=== PATIENT | female | born 1960 | race African-American/Black ===

== ENCOUNTER 2017-11-20 22:25 | Inpatient (IN) | payer OTHER ==
--- OUTSIDE RECORDS SUMMARY | 2017-11-20 22:28 | XMS REPORT | Clinical Summary ---
:1960 Author Organization [facility] Address [address] [place] [address] Phone Care Team Providers Name Role Phone Unavailable Primary Care Provider Unavailable Allergies No Known Allergies Current Medications Prescription Sig. Disp. Refills Start Date End Date Status hydrOXYzine Take 50 mg by mouth Active (VISTARIL) 50 MG 3 (three) times capsule daily as needed for Anxiety. ARIPiprazole Take 15 mg by mouth Active (ABILIFY) 10 MG daily . tablet omeprazole Take 20 mg by mouth Active (PRILOSEC) 20 MG daily. capsule sertraline (ZOLOFT) Take 50 mg by mouth Active 50 MG tablet daily. senna-docusate Take 1 tablet by 30 tablet 0 02/01/2016 Active (SENOKOT S) 8.6-50 mouth nightly. mg per tablet ertapenem (INVanz) Inject 0.5 g 0 02/05/2016 Active IVPB intravenously daily. acetaminophen Take 650 mg by Active (TYLENOL) 325 MG mouth every 4 tablet (four) hours as needed for Pain. LORazepam (ATIVAN) Take 1 mg by mouth Active 1 MG tablet every 6 (six) hours as needed for Anxiety. cloNIDine HCl Take 0.1 mg by Active (CATAPRES) 0.1 MG mouth every 8 tablet (eight) hours as needed (bp>180/105). acetaminophen-codei Take 1 tablet by Active ne (TYLENOL #3) mouth every 4 300-30 mg per (four) hours as tablet needed for Pain. furosemide (LASIX) Take 1 tablet (40 30 tablet 0 02/01/2016 01/31/2017 40 MG tablet mg total) by mouth daily. carvedilol (COREG) Take 1 tablet (6.25 60 tablet 0 02/01/2016 01/31/2017 6.25 MG tablet mg total) by mouth 2 (two) times daily. sevelamer (RENVELA) Take 1 tablet (800 90 tablet 0 02/01/2016 01/31/2017 800 mg tablet mg total) by mouth 3 (three) times daily with meals. Active Problems Problem Noted Date Atrial myxoma 02/06/2016 ESRD on dialysis (HCC) 02/06/2016 Hyponatremia 02/06/2016 Metabolic bone disease 02/06/2016 Hypertension 02/06/2016 Catheter-related bloodstream infection (CRBSI) 02/06/2016 Infective endocarditis 02/06/2016 Anemia of chronic disease 02/06/2016 Depression 02/06/2016 Bacteremia 01/16/2016 Family History Medical History Relation Name Comments Heart disease Mother Relation Name Status Comments Mother Social History Tobacco Use Types Packs/Day Years Used Date Former Smoker 1 20 Quit: 11/25/2015 Smokeless Tobacco: Former User Tobacco Cessation: Ready to Quit: Yes Alcohol Use Drinks/Week oz/Week Comments No Sex Assigned at Date Recorded Not on file Last Filed Vital Signs Not on file Plan of Treatment Health Maintenance Due Date Last Done Comments INFLUENZA VACCINE 04/02/2018 Implants Implanted Type Area Production Statistical Clerk Device Expiration Model / Identifier Date Serial / Lot Grft Hemshld Dbl Jarrod 2.0x6.0in [id number] - [id number] Graft/Pat GETINGE 01/30/2019 [id number] / Implanted: Qty: 1 on 01/25/2016 by Sherif Bañuelos MD IND: [id number]:CV / [id number] Results Not on fileafter 11/19/2016
[2017-11-20 23:21] LABS: Absolute Lymphocytes (CBC) 1.8 K/uL (0.7-4.9); Absolute Monocytes 0.9 K/uL (0.1-1.3); Absolute Neutrophil 4.6 K/uL (1.8-8.0); Basophils % 1.4 % (0-1.3); Eosinophils % 0.8 % (0-4.4); Hematocrit 37.4 % (36.0-45.0); Lymphocytes % 23.8 % (15.3-44.8); MCH 27.8 pg (27.0-35.0); MCV 86.7 fL (80-100); MPV 8.9 fL (7.6-11.3); Monocytes % 11.7 % (3.3-12.3); RBC Red Blood Cell Count 4.32 M/uL (3.86-4.86)
[2017-11-20 23:24] LABS: Protime INR 1.16
[2017-11-20 23:35] LABS: Bilirubin Direct 0.1 mg/dL (0-0.2); Bilirubin Total 0.5 mg/dL (0.3-1.2); Magnesium 2.2 mg/dL (1.8-2.5); Protein, Total 8.3 g/dL (6.0-8.3)
[2017-11-20 23:39] LABS: CKMB Creatine Kinase MB 2.5 ng/ml (0.3-4.0)
[2017-11-20 23:58] LABS: Potassium 5.5 mEq/L (3.6-5.0)
--- NOTE | 2017-11-21 00:17 | EDPHYS ---
Physician Documentation [facility] Name: Michelle Ochoa Age: 57 yrs Sex: Female : 1960 Arrival Date: 11/20/2017 Time: 22:28 Bed 5 Private MD: ED Physician Abhishek Decker HPI: 11/21 00:23 This 57 yrs old Black Female presents to ER via Ambulatory with complaints of Shortness tw4 Of Breath. 00:23 The patient has shortness of breath at rest. Onset: The symptoms/episode began/occurred tw4 1 week(s) ago. Duration: The symptoms are continuous, and are steadily getting worse. The patient's shortness of breath is aggravated by exertion, is alleviated by rest. Associated signs and symptoms: The patient has no apparent associated signs or symptoms. Severity of symptoms: At their worst the symptoms were moderate in the emergency department the symptoms are unchanged. The patient has not recently seen a physician, missed last three dialysis sessions. Historical: - Allergies: 11/20 22:55 No Known Allergies; lp1 - Home Meds: 22:55 Unable to obtain [Active]; lp1 - PMHx: 22:55 Hypertension; Renal Disease; Dialysis- T//Mon; lp1 - PSHx: 22:55 ; Cholecystectomy; YOLANDA fistula; lp1 - Immunization history:: Adult Immunizations up to date. - Social history:: Smoking status: Patient uses tobacco products, smokes one-half pack cigarettes per day. ROS: 11/21 00:23 Eyes: Negative for injury, pain, redness, and discharge, Cardiovascular: Negative for tw4 chest pain, palpitations, and edema, Abdomen/GI: Negative for abdominal pain, nausea, vomiting, diarrhea, and constipation, Back: Negative for injury and pain, MS/Extremity: Negative for injury and deformity, Neuro: Negative for headache, weakness, numbness, tingling, and seizure. Respiratory: Positive for dyspnea on exertion, shortness of breath, Negative for cough, hemoptysis, orthopnea, pleurisy. Exam: 00:23 Constitutional: This is a well developed, well nourished patient who is awake, alert, tw4 and in no acute distress. Head/Face: Normocephalic, atraumatic. Chest/axilla: Normal chest wall appearance and motion. Nontender with no deformity. No lesions are appreciated. Cardiovascular: Regular rate and rhythm with a normal S1 and S2. No gallops, murmurs, or rubs. Normal PMI, no JVD. No pulse deficits. Respiratory: Lungs have equal breath sounds bilaterally, clear to auscultation and percussion. No rales, rhonchi or wheezes noted. No increased work of breathing, no retractions or nasal flaring. Abdomen/GI: Soft, non-tender, with normal bowel sounds. No distension or tympany. No guarding or rebound. No evidence of tenderness throughout. Skin: Warm, dry with normal turgor. Normal color with no rashes, no lesions, and no evidence of cellulitis. Neuro: Awake and alert, GCS 15, oriented to person, place, time, and situation. Cranial nerves II-XII grossly intact. Motor strength 5/5 in all extremities. Sensory grossly intact. Cerebellar exam normal. Normal gait. 00:23 Musculoskeletal/extremity: Extremities: all appear grossly normal, with no appreciated pain with palpation, ROM: no acute changes, Circulation is intact in all extremities. AV fistula left upper arm +thrill +bruit. Vital Signs: 11/20 22:53 BP 233 / 92; Pulse 85; Resp 18; Temp 97.8(O); Pulse Ox 94% on R/A; Weight 76.2 kg; lp1 Height 5 ft. 0 in. (152.40 cm); Pain 0/10; 23:13 BP 232 / 94; Pulse 68; Resp 19; Pulse Ox 100% on R/A; lp1 23:30 BP 236 / 89; Pulse 70; Resp 19; Pulse Ox 100% on R/A; lp1 11/21 00:20 BP 232 / 104; Pulse 77; Resp 21; Pulse Ox 100% on R/A; lp1 00:40 BP 214 / 106; Pulse 76; Resp 24; Pulse Ox 96% on R/A; lp1 01:20 BP 229 / 106; Pulse 71; Resp 24; Pulse Ox 98% on R/A; lp1 01:40 BP 245 / 108; Pulse 71; Resp 24; Pulse Ox 98% on R/A; lp1 01:50 BP 237 / 86; Pulse 80; Resp 21; Pulse Ox 98% on R/A; lp1 02:05 BP 228 / 85; Pulse 80; Resp 24; Pulse Ox 98% on R/A; lp1 02:15 BP 201 / 85; Pulse 84; Resp 19; Temp 97.4(O); Pulse Ox 100% on R/A; lp1 11/20 22:53 Body Mass Index 32.81 (76.20 kg, 152.40 cm) lp1 MDM: 11/20 22:49 Patient medically screened. 11/21 00:15 Differential diagnosis: CHF exacerbation, Chronic Obstructive Pulmonary Disease tw4 Myocardial Infarction pneumonia, pulmonary edema, Pulmonary Embolism reactive airway disease. Data reviewed: vital signs, nurses notes. 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 Test interpretation: by ED physician or midlevel provider: ECG. Counseling: I had a detailed discussion with the patient and/or guardian regarding: the historical points, exam findings, and any diagnostic results supporting the discharge/admit diagnosis, the presence of at least one elevated blood pressure reading (>120/80) during this emergency department visit, lab results, radiology results. Physician consultation: Roxanna Felipe MD was contacted at 00:15, regarding admission, to the telemetry unit. need to evaluate the patient as soon as possible, and will see patient in inpatient room. Admission orders: after a detailed discussion of the patient's condition and case, the admit orders are written by me. ED course: Pt states she feels well. Received IVF insulin and D50 for treatment of hyperkalemia. 11/20 22:51 Order name: Basic Metabolic Panel; Complete Time: 00:10 11/21 00:11 Interpretation: Normal except: K 5.5; CO2 16; BUN 84; CRE 10.70; GFR 4. 11/20 22:51 Order name: BNP; Complete Time: 00:10 11/20 22:51 Order name: CBC with Diff; Complete Time: 00:10 11/20 22:51 Order name: Ckmb; Complete Time: 00:10 11/20 22:51 Order name: CPK; Complete Time: 00:10 11/20 22:51 Order name: LFT's; Complete Time: 00:10 11/20 22:51 Order name: Magnesium; Complete Time: 00:10 11/20 22:51 Order name: PT-INR; Complete Time: 00:[address] [facility] 11/20 22:51 Order name: Ptt, Activated; Complete Time: 00:[address] [facility] 11/21 00:11 Interpretation: Within normal limits: PTT 35.1. [facility] 11/20 22:51 Order name: Troponin (emerg Dept Use Only); Complete Time: 00:[address] [facility] 11/20 22:51 Order name: XRAY Chest (1 view) [facility] 11/21 00:00 Order name: Urine Dipstick--Ancillary (enter results) cc 11/20 22:51 Order name: EKG; Complete Time: 22:[address] [facility] 11/20 22:51 Order name: Cardiac monitoring; Complete Time: 23:[address] [facility] 11/20 22:51 Order name: EKG - Nurse/Tech; Complete Time: 23:[address] [facility] 11/20 22:51 Order name: IV Saline Lock; Complete Time: 23:[address] [facility] 11/20 22:51 Order name: Labs collected and sent; Complete Time: 23:[address] [facility] 11/20 22:51 Order name: O2 Per Protocol; Complete Time: 23:[address] [facility] 11/20 22:51 Order name: O2 Sat Monitoring; Complete Time: 23:[address] [facility] 11/20 22:51 Order name: Urine Dipstick-Ancillary (obtain specimen); Complete Time: 23:59 tw4 Administered Medications: 00:25 Drug: D50W 50 ml Route: IVP; Site: right antecubital; mg2 01:00 Follow up: Response: No adverse reaction lp1 00:26 Drug: Insulin Regular Human 10 units {Co-Signature: mg2 (Yong Villanueva RN).} Route: lp1 IVP; Site: right antecubital; 02:16 Follow up: Response: No adverse reaction lp1 01:52 Drug: D50W 50 ml Route: IVP; Site: right antecubital; lp1 02:16 Follow up: Response: Blood sugar is elevated lp1 02:02 Drug: hydrALAZINE 20 mg Route: IV; Rate: bolus; Site: right antecubital; lp1 02:35 Follow up: Response: Blood pressure is lowered; IV Status: Completed infusion lp1 Point of Care Testing: Blood Glucose: 01:50 Blood Glucose: 34 mg/dL; lp1 02:08 Blood Glucose: 142 mg/dL; lp1 Ranges: Critical Glucose Levels:Adult <50 mg/dl or >400 mg/dl <40 mg/dl or >180 mg/dl Disposition: 11/21/17 00:16 Hospitalization ordered by Roxanna Felipe for Inpatient Admission. Preliminary diagnosis are Chronic kidney disease, stage 5, End stage renal disease, Hyperkalemia. - Bed requested for Telemetry/MedSurg (Inpatient). - Status is Inpatient Admission. lp1 - Condition is Stable. - Problem is an ongoing problem. - Symptoms are unchanged. UTI on Admission? No Signatures: Dispatcher [employer] EDMS Sandra Mccullough RN RN kl Pamela Senior RN RN lp1 Abhishek Decker MD MD tw4 Yong Villanueva RN RN mg2 Yong Villanueva RN mg2 Corrections: (The following items were deleted from the chart) 00:11 00:11 Normal except: K 5.5; CO2 16; BUN 84; CRE 10.70. tw4 tw4 01:41 00:16 Hospitalization Ordered by Roxanna Felipe MD for Inpatient Admission. Preliminary kl diagnosis is Chronic kidney disease, stage 5; End stage renal disease; Hyperkalemia. Bed requested for Telemetry/MedSurg (Inpatient). Status is Inpatient Admission. Condition is Stable. Problem is an ongoing problem. Symptoms are unchanged. UTI on Admission? No. tw4 02:40 01:41 11/21/2017 00:16 Hospitalization Ordered by Roxanna Felipe MD for Inpatient lp1 Admission. Preliminary diagnosis is Chronic kidney disease, stage 5; End stage renal disease; Hyperkalemia. Bed requested for Telemetry/MedSurg (Inpatient). Status is Inpatient Admission. Condition is Stable. Problem is an ongoing problem. Symptoms are unchanged. UTI on Admission? No. kl
--- NOTE | 2017-11-21 00:17 | ER ---
Nurse's Notes [facility] Name: Michelle Ochoa Age: 57 yrs Sex: Female : 1960 Arrival Date: 11/20/2017 Time: 22:28 Bed 5 Private MD: Diagnosis: Chronic kidney disease, stage 5;End stage renal disease;Hyperkalemia Presentation: 11/20 22:51 Presenting complaint: Patient states: Shortness of breath that began today; Patient lp1 states she has not been dialyzed in 1 week, due to no transportation and has not taken any home medications for today. Transition of care: patient was not received from another setting of care. Onset of symptoms was November 20, 2017. Risk Assessment: Do you want to hurt yourself or someone else? Patient reports no desire to harm self or others. Initial Sepsis Screen: Does the patient meet any 2 criteria? No. Patient's initial sepsis screen is negative. Does the patient have a suspected source of infection? No. Patient's initial sepsis screen is negative. Care prior to arrival: None. 22:51 Method Of Arrival: Ambulatory lp1 22:51 Acuity: ZAID 3 lp1 Historical: - Allergies: 22:55 No Known Allergies; lp1 - Home Meds: 22:55 Unable to obtain [Active]; lp1 - PMHx: 22:55 Hypertension; Renal Disease; Dialysis- T//Mon; lp1 - PSHx: 22:55 ; Cholecystectomy; YOLANDA fistula; lp1 - Immunization history:: Adult Immunizations up to date. - Social history:: Smoking status: Patient uses tobacco products, smokes one-half pack cigarettes per day. Screenin:55 Abuse screen: Denies threats or abuse. Denies injuries from another. Nutritional lp1 screening: No deficits noted. Tuberculosis screening: No symptoms or risk factors identified. Fall Risk None identified. Assessment: 23:09 General: Appears uncomfortable, Behavior is appropriate for age. Pain: Denies pain. lp1 Neuro: Level of Consciousness is awake, alert, obeys commands, Oriented to person, place, time, situation. Cardiovascular: Reports shortness of breath, Capillary refill < 3 seconds in bilateral fingers toes Patient's skin is warm and dry. Rhythm is sinus rhythm Dialysis shunt: in the left bicep, with palpable thrill, with auscultated bruit. Respiratory: Reports shortness of breath at rest Airway is patent Trachea midline Respiratory effort is even, Breath sounds are diminished bilaterally. Onset: The symptoms/episode began/occurred this morning, the patient has moderate shortness of breath. GI: Abdomen is non-distended. : No signs and/or symptoms were reported regarding the genitourinary system. EENT: No signs and/or symptoms were reported regarding the EENT system. Derm: Skin is intact, Skin is dry, Skin is normal. Musculoskeletal: Circulation, motion, and sensation intact. 11/21 00:15 Reassessment: Patient appears in no apparent distress at this time. No changes from lp1 previously documented assessment. Patient and/or family updated on plan of care and expected duration. Pain level reassessed. 01:15 Reassessment: Patient appears in no apparent distress at this time. Patient and/or lp1 family updated on plan of care and expected duration. Pain level reassessed. Patient resting, eyes closed, respirations unlabored. 01:50 Reassessment: Patient found to be diaphoretic on arrival into room, patient states "I'm lp1 really hot". Neuro: Level of Consciousness is awake, alert, obeys commands. Respiratory: Respiratory effort is even. Derm: Skin is diaphoretic. 01:50 Reassessment: Dr. Decker notified of blood sugar of 34, verbal order to administer D50 lp1 IV 1 amp. Vital Signs: 11/20 22:53 BP 233 / 92; Pulse 85; Resp 18; Temp 97.8(O); Pulse Ox 94% on R/A; Weight 76.2 kg; lp1 Height 5 ft. 0 in. (152.40 cm); Pain 0/10; 23:13 BP 232 / 94; Pulse 68; Resp 19; Pulse Ox 100% on R/A; lp1 23:30 BP 236 / 89; Pulse 70; Resp 19; Pulse Ox 100% on R/A; lp1 11/21 00:20 BP 232 / 104; Pulse 77; Resp 21; Pulse Ox 100% on R/A; lp1 00:40 BP 214 / 106; Pulse 76; Resp 24; Pulse Ox 96% on R/A; lp1 01:20 BP 229 / 106; Pulse 71; Resp 24; Pulse Ox 98% on R/A; lp1 01:40 BP 245 / 108; Pulse 71; Resp 24; Pulse Ox 98% on R/A; lp1 01:50 BP 237 / 86; Pulse 80; Resp 21; Pulse Ox 98% on R/A; lp1 02:05 BP 228 / 85; Pulse 80; Resp 24; Pulse Ox 98% on R/A; lp1 02:15 BP 201 / 85; Pulse 84; Resp 19; Temp 97.4(O); Pulse Ox 100% on R/A; lp1 11/20 22:53 Body Mass Index 32.81 (76.20 kg, 152.40 cm) lp1 ED Course: 11/20 22:28 Patient arrived in ED. am2 22:49 Abhishek Decker MD is Attending Physician. tw4 22:51 Pamela Senior, SAÚL is Primary Nurse. lp1 22:53 Triage completed. lp1 22:53 Arm band placed on left wrist. lp1 22:55 Patient has correct armband on for positive identification. Placed in gown. Bed in low lp1 position. Call light in reach. secured entrance monitor on. Pulse ox on. NIBP on. 23:07 Inserted saline lock: 20 gauge in right antecubital area, using aseptic technique. mg2 Blood collected. 23:09 EKG done, by ED staff, reviewed by Abhishek Decker MD. lp1 23:20 X-ray completed. Portable x-ray completed in exam room. Patient tolerated procedure kw well. 23:22 XRAY Chest (1 view) In Process Unspecified. EDMS 11/21 00:16 Roxanna Felipe MD is Hospitalizing Provider. tw4 00:47 No provider procedures requiring assistance completed. Patient admitted, IV remains in lp1 place. Administered Medications: 00:25 Drug: D50W 50 ml Route: IVP; Site: right antecubital; mg2 01:00 Follow up: Response: No adverse reaction lp1 00:26 Drug: Insulin Regular Human 10 units {Co-Signature: mg2 (Yong Villanueva RN).} Route: lp1 IVP; Site: right antecubital; 02:16 Follow up: Response: No adverse reaction lp1 01:52 Drug: D50W 50 ml Route: IVP; Site: right antecubital; lp1 02:16 Follow up: Response: Blood sugar is elevated lp1 02:02 Drug: hydrALAZINE 20 mg Route: IV; Rate: bolus; Site: right antecubital; lp1 02:35 Follow up: Response: Blood pressure is lowered; IV Status: Completed infusion lp1 Point of Care Testing: Blood Glucose: 01:50 Blood Glucose: 34 mg/dL; lp1 02:08 Blood Glucose: 142 mg/dL; lp1 Ranges: Outcome: 00:16 Decision to Hospitalize by Provider. tw4 00:47 Condition: stable lp1 00:47 Instructed on the need for admit. 02:34 Admitted to Med/surg accompanied by nurse, via wheelchair, room 213, with chart, Other lp1 Ilsa Epstein RN 02:40 Patient left the ED. lp1 Signatures: Dispatcher [employer] EDMS Svetlana De Leon Laura, RN RN lp1 Cherri Rodriguez am2 Abhishke Decker MD MD tw4 Yong Villanueva RN RN mg2 Yong Villanueva RN mg2
[2017-11-21 00:19] LABS: Urine Blood TRACE (NEG); Urine Glucose NEGATIVE (NEG); Urine Protein 2+ (NEG)
[2017-11-21] MEDS ORDERED: D50W 25 GM/50 ML SYRINGE IV ONE ×2 (00:20→01:52)
[2017-11-21] MEDS ORDERED: INSULIN -REGULAR HUMAN 50 UNIT/0.5 ML ML ONE (00:20)
[2017-11-21] MEDS ORDERED: ACETAMINOPHEN 500 MG TAB PO PRN (00:48)
[2017-11-21] MEDS ORDERED: FUROSEMIDE 40 MG/4 ML VIAL IV ONE (00:48)
[2017-11-21] MEDS ORDERED: ONDANSETRON 4 MG/2 ML VIAL IV PRN (00:48)
[2017-11-21] MEDS ORDERED: HYDRALAZINE HCL 20 MG/ML VIAL ONE (02:02)
[2017-11-21 03:53] VITALS: BMI 32.8
[2017-11-21 04:29] LABS: Urine Appearance CLEAR; Urine Bilirubin NEGATIVE (NEG); Urine Blood NEGATIVE (NEG); Urine Color YELLOW; Urine Glucose TRACE (NEG); Urine Protein 2+ (NEG); Urine Urobilinogen 0.2 mg/dL (0.2-1.0)
[2017-11-21 04:32] LABS: Urine Microscopic Reflex ORDER UMIC
[2017-11-21 05:20] LABS: Urine Bacteria <20 /HPF (<20); Urine Culture Reflex Order NOT NEEDED; Urine RBC <5 /HPF (NONE SEEN)
[2017-11-21] MEDS: FUROSEMIDE 40 MG/4 ML VIAL IV SCH (05:30)
[2017-11-21 06:28] LABS: Absolute Lymphocytes (CBC) 0.6 K/uL (0.7-4.9); Absolute Neutrophil 8.5 K/uL (1.8-8.0); Basophils % 0.6 % (0-1.3); Hematocrit 38.5 % (36.0-45.0); Lymphocytes % 6.1 % (15.3-44.8); MCH 28.1 pg (27.0-35.0); MCV 87.2 fL (80-100); MPV 8.5 fL (7.6-11.3); Monocytes % 9.9 % (3.3-12.3); RBC Red Blood Cell Count 4.42 M/uL (3.86-4.86)
[2017-11-21 06:40] LABS: Albumin 4.1 g/dL (3.2-5.5)
--- NOTE | 2017-11-21 06:56 | EKG ---
Test Date: 2017-11-20 Test Time: 23:03:45 Speech Language Assistant: DILMA MEASUREMENT RESULTS: Intervals: Rate: 70 MI: 146 QRSD: 72 QT: 436 QTc: 470 [place]: P: 70 MI: 146 QRS: 54 T: 51 INTERPRETIVE STATEMENTS: Normal sinus rhythm Septal infarct, age undetermined Abnormal ECG Compared to ECG 05/06/2017 17:26:42 No significant changes Electronically Signed On 11-21-17 06:55:18 CDT by Prashanth Casanova
--- NOTE | 2017-11-21 08:11 | RAD REPORT ---
EXAM DESCRIPTION: RAD - Chest Single View - 11/20/2017 11:21 pm CLINICAL HISTORY: Shortness of breath. COMPARISON: 05/06/2017 FINDINGS: Portable technique limits examination quality. Mild interstitial pulmonary edema is noted. Trace pleural fluid. The heart is mildly moderately enlar ged. No displaced fractures.Sternotomy wires present. IMPRESSION: Mild CHF/ volume overload pattern.
[2017-11-21] MEDS ORDERED: hydrOXYzine HCl 25 MG TAB PO PRN (08:42)
[2017-11-21] MEDS ORDERED: TRAZODONE 50 MG TABLET PO PRN (08:42)
--- NOTE | 2017-11-21 08:55 | P.HP ---
Certification for Inpatient Patient admitted to: Observation With expected LOS: <2 Midnights Patient will require the following post-hospital care: None Practitioner: I am a practitioner with admitting privileges, knowledge of patient current condition, hospital course, and medical plan of care. Services: Services provided to patient in accordance with Admission requirements found in Title 42 Section 412.3 of the Code of Federal Regulations Patient History Date of Service: 11/21/17 Reason for admission: Shortness of breath/fluid overload History of Present Illness: Patient is a 57-year-old female who came to the hospital with shortness of breath. Patient has a history of end-stage renal disease and is on hemodialysis. Patient came into the hospital as she had had more than what she was supposed to drink this weekend. She was in respiratory distress. She was given IV diuretics and her respirations have improved. She put out about 250 cc of fluid. At this time will go ahead and admit her for observation and have Nephrology consulted. After hemodialysis patient should be stable for discharge home if Nephrology is agreeable. Allergies No Known Allergies Allergy (Verified 11/21/17 02:27) Home Medications: Albuterol Sulfate [Proair Hfa] 2 puff PO Q4H PRN 01/05/16 Guaifenesin/Codeine Phosphate [Cheratussin AC Syrup] 1 tsp PO Q4H PRN 01/05/16 Hydroxyzine Pamoate 1 cap PO TID PRN 01/05/16 Nifedipine [Nifedipine ER] 1 tab PO BID 01/05/16 Omeprazole 1 cap PO DAILY 01/05/16 Carvedilol [Coreg*] 12.5 mg PO BID #60 tab 05/08/17 Ramipril [Altace*] 5 mg PO DAILY #30 cap 05/08/17 Clonidine HCl 1 tab PO BID 11/21/17 Furosemide 1 tab PO DAILY 11/21/17 Isosorbide Mononitrate [Isosorbide Mononitrate ER] 30 mg PO DAILY 11/21/17 Trazodone [Desyrel] 50 mg PO DAILY PRN 11/21/17 - Past Medical/Surgical History Has patient received pneumonia vaccine in the past: Yes Diabetic: No -: HTN -: COPD -: STROKE -: HEP C -: ESRD -: Dialysis- T//Sat -: YOLANDA fistula -: -: Cholecystectomy - Family History Mother Medical History: Heart disease - Social History Smoking Status: Current every day smoker Alcohol use: No CD- Drugs: No Caffeine use: Yes Place of Residence: Home Review of Systems 10-point ROS is otherwise unremarkable Physical Examination - Vital Signs Temperature: 97.8 F Blood Pressure: 178/96 Pulse: 99 Respirations: 18 Pulse Ox (%): 100 - Physical Exam General: Alert, In no apparent distress, Oriented x3 HEENT: Atraumatic, PERRLA, Mucous membr. moist/pink, EOMI, Sclerae nonicteric Neck: Supple, 2+ carotid pulse no bruit, No LAD, Without JVD or thyroid abnormality Respiratory: Clear to auscultation bilaterally, Normal air movement Cardiovascular: Regular rate/rhythm, Normal S1 S2 Gastrointestinal: Normal bowel sounds, Soft and benign, Non-distended, No tenderness Musculoskeletal: No tenderness Integumentary: No rashes Neurological: Normal gait, Normal speech, Normal strength at 5/5 x4 extr, Normal tone, Sensation intact, Cranial nerves 3-12 intact ( Oswaldo and), Normal affect Lymphatics: No axilla or inguinal lymphadenopathy - Studies Laboratory Data (last 24 hrs) 11/20/17 23:00: PT 13.7 H, INR 1.16, APTT 35.1 11/20/17 23:00: WBC 7.4, Hgb 12.0, Hct 37.4, Plt Count 236 11/20/17 23:00: B-Natriuretic Peptide 1725 H 11/20/17 23:00: Sodium 136, Potassium 5.5 H, BUN 84 H, Creatinine 10.70 H*, Glucose 111, Magnesium 2.2, Total Bilirubin 0.5, AST 17, ALT 14, Alkaline Phosphatase 112 Assessment & Plan - Problems (Diagnosis) (1) Volume overload Onset Date: 05/08/17 Current Visit: No Status: Acute Qualifiers: (2) ESRD (end stage renal disease) on dialysis Onset Date: 01/06/16 Current Visit: No Status: Chronic (3) HTN (hypertension) Onset Date: 05/08/17 Current Visit: No Status: Chronic Qualifiers: (4) Hyperkalemia Onset Date: 05/08/17 Current Visit: No Status: Resolved - Plan Plan: 1. Hemodialysis per Nephrology 2. recheck electrolytes 3. strict fluid intake management 4. strict blood pressure control 5. GI and DVT prophylaxis Discharge Plan: Home Plan to discharge in: 48 Hours - Advance Directives Does patient have a Living Will: No Does patient have a Durable POA for Healthcare: No - Code Status/Comfort Care Code Status Assessed: Yes Code Status: Full Code Critical Care: No Time Spent Managing PTS Care (In Minutes): 50
[2017-11-21] MEDS ORDERED: FUROSEMIDE 40 MG/4 ML VIAL IV SCH (09:00)
[2017-11-21 09:09] LABS: Bilirubin Total 0.7 mg/dL (0.3-1.2)
[2017-11-21] MEDS: SERTRALINE HCL 50 MG TAB PO SCH (09:11)
[2017-11-21] MEDS: cloNIDine HCl 0.1 MG TAB PO SCH ×2 (09:11→21:38)
[2017-11-21] MEDS: CARVEDILOL 12.5 MG TAB PO SCH ×2 (09:11→21:38)
[2017-11-21] MEDS: ISOSORBIDE MONO SR 30 MG TAB PO SCH (09:12)
[2017-11-21] MEDS: NIFEDIPINE XL 90 MG TABLET PO SCH ×2 (09:12→21:37)
[2017-11-21] MEDS: RAMIPRIL 5 MG CAP PO SCH (09:12)
[2017-11-21 09:18] LABS: Potassium 5.6 mEq/L (3.6-5.0)
[2017-11-21] MEDS ORDERED: NA CHLORIDE 0.9% 1,000 ML IV PRN (12:52)
[2017-11-21] MEDS ORDERED: MANNITOL 25% 12.5 GM/50 ML VIAL IV PRN (12:52)
[2017-11-21] MEDS ORDERED: ALBUMIN HUMAN 25% 50 ML IV SCH (13:00)
[2017-11-21] MEDS ORDERED: EPOETIN ALFA 10,000 UNIT/ML VIAL IV SCH (13:00)
--- NOTE | 2017-11-21 22:14 | P.CNS ---
Date of Consult: 11/21/17 Reason for Consult: ESRD Requesting Physician: Ana Jovel Chief Complaint: Shortness of breath/fluid overload History of Present Illness: Patient is a 57-year-old female who came to the hospital with shortness of breath. Patient has a history of end-stage renal disease and is on hemodialysis. Patient came into the hospital as she had had more than what she was supposed to drink this weekend. She was in respiratory distress. She was given IV diuretics and her respirations have improved. She put out about 250 cc of fluid. At this time will go ahead and admit her for observation and have Nephrology consulted. After hemodialysis patient should be stable for discharge home if Nephrology is agreeable. 00:23 This 57 yrs old Black Female presents to ER via Ambulatory with complaints of Shortness tw4 Of Breath. 00:23 The patient has shortness of breath at rest. Onset: The symptoms/episode began/occurred tw4 1 week(s) ago. Duration: The symptoms are continuous, and are steadily getting worse. The patient's shortness of breath is aggravated by exertion, is alleviated by rest. Associated signs and symptoms: The patient has no apparent associated signs or symptoms. Severity of symptoms: At their worst the symptoms were moderate in the emergency department the symptoms are unchanged. The patient has not recently seen a physician, missed last three dialysis sessions. Allergies No Known Allergies Allergy (Verified 11/21/17 02:27) Home medications list reviewed: Yes Home Medications: Albuterol Sulfate [Proair Hfa] 2 puff PO Q4H PRN 01/05/16 Guaifenesin/Codeine Phosphate [Cheratussin AC Syrup] 1 tsp PO Q4H PRN 01/05/16 Hydroxyzine Pamoate 1 cap PO TID PRN 01/05/16 Nifedipine [Nifedipine ER] 1 tab PO BID 01/05/16 Omeprazole 1 cap PO DAILY 01/05/16 Carvedilol [Coreg*] 12.5 mg PO BID #60 tab 05/08/17 Ramipril [Altace*] 5 mg PO DAILY #30 cap 05/08/17 Clonidine HCl 1 tab PO BID 11/21/17 Furosemide 1 tab PO DAILY 11/21/17 Isosorbide Mononitrate [Isosorbide Mononitrate ER] 30 mg PO DAILY 11/21/17 Trazodone [Desyrel] 50 mg PO DAILY PRN 11/21/17 - Past Medical/Surgical History Diabetic: No -: HTN -: COPD -: STROKE -: HEP C -: ESRD -: Dialysis- T//Sat -: [facility] fistula -: -: Cholecystectomy - Family History Mother Medical History: Heart disease - Social History Smoking Status: Current every day smoker Alcohol use: No CD- Drugs: No Caffeine use: Yes Place of Residence: Home Review of Systems 10-point ROS is otherwise unremarkable General: Weakness, Malaise Respiratory: SOB with Excertion Cardiovascular: Edema Physical Examination Temp Pulse Resp BP Pulse Ox 97.4 F 70 18 148/71 H 98 11/21/17 16:00 11/21/17 21:38 11/21/17 16:00 11/21/17 21:38 11/21/17 16:00 General: In no apparent distress, Oriented x3, Cooperative HEENT: Atraumatic Neck: Supple Respiratory: Clear to auscultation bilaterally Cardiovascular: Regular rate/rhythm, Edema Gastrointestinal: Soft and benign, Non-distended Musculoskeletal: No clubbing, No contractures Integumentary: No rashes, No cyanosis Neurological: Normal speech Laboratory Data (last 24 hrs) 11/20/17 23:00: PT 13.7 H, INR 1.16, APTT 35.1 11/20/17 23:00: WBC 7.4, Hgb 12.0, Hct 37.4, Plt Count 236 11/20/17 23:00: B-Natriuretic Peptide 1725 H 11/20/17 23:00: Sodium 136, Potassium 5.5 H, BUN 84 H, Creatinine 10.70 H*, Glucose 111, Magnesium 2.2, Total Bilirubin 0.5, AST 17, ALT 14, Alkaline Phosphatase 112 Imagings Data: EXAM DESCRIPTION: RAD - Chest Single View - 11/20/2017 11:21 pm CLINICAL HISTORY: Shortness of breath. COMPARISON: 05/06/2017 FINDINGS: Portable technique limits examination quality. Mild interstitial pulmonary edema is noted. Trace pleural fluid. The heart is mildly moderately enlarged. No displaced fractures.Sternotomy wires present. IMPRESSION: Mild CHF/ volume overload pattern. Conclusions/Impression: A/ ESRD on HD. Hyperkalemia. HTN with CKD. Diastolic CHF, A/C. Anemia in CKD. HILARIO/ Secondary HyperPTH. CVD. Hx CVA. Poor compliance with medications and dialysis. P/ Continue current POC and Medications. Arrange for acute HD with UF. Seen and examined on HD. Next HD in AM. Restart home medications. AM labs. Daily weight. Thank you kindly for the consultation.
[2017-11-22] MEDS ORDERED: PANTOPRAZOLE 40MG TABLET PO SCH (06:30)
--- NOTE | 2017-11-22 09:03 | RAD REPORT ---
EXAM DESCRIPTION: RAD - Chest Single View - 11/22/2017 5:16 am CLINICAL HISTORY: CHF COMPARISON: 11/20/2017 FINDINGS: Portable technique limits examination quality. Mild improvement in interstitial pulmonary edema is seen. Trace right pleural fluid is noted. The hea rt is upper limit normal in size with sternotomy wires present. No displaced fractures. IMPRESSION: Mild improvement in lung aeration since comparative study.
[2017-11-22 10:02] LABS: Albumin 3.4 g/dL (3.2-5.5); Bilirubin Total 0.8 mg/dL (0.3-1.2); Potassium 4.2 mEq/L (3.6-5.0); Protein, Total 7.1 g/dL (6.0-8.3)
[2017-11-22] MEDS: NIFEDIPINE XL 90 MG TABLET PO SCH (10:32)
[2017-11-22] MEDS: FUROSEMIDE 40 MG/4 ML VIAL IV SCH (10:32)
[2017-11-22] MEDS: SERTRALINE HCL 50 MG TAB PO SCH (10:33)
[2017-11-22] MEDS: ISOSORBIDE MONO SR 30 MG TAB PO SCH (10:33)
[2017-11-22] MEDS: RAMIPRIL 5 MG CAP PO SCH (10:33)
[2017-11-22] MEDS: cloNIDine HCl 0.1 MG TAB PO SCH (10:33)
[2017-11-22] MEDS: CARVEDILOL 12.5 MG TAB PO SCH (10:34)
--- NOTE | 2017-11-22 14:48 | P.SSS ---
Patient History Date of Service: 11/22/17 Reason for admission: Shortness of breath/fluid overload History of Present Illness: Patient is a 57-year-old female who came to the hospital with shortness of breath. Patient has a history of end-stage renal disease and is on hemodialysis. Patient came into the hospital as she had had more than what she was supposed to drink this weekend. She was in respiratory distress. She was given IV diuretics and her respirations have improved. She put out about 250 cc of fluid. At this time will go ahead and admit her for observation and have Nephrology consulted. After hemodialysis patient should be stable for discharge home if Nephrology is agreeable. Allergies No Known Allergies Allergy (Verified 11/21/17 02:27) Home Medications: Albuterol Sulfate [Proair Hfa] 2 puff PO Q4H PRN 01/05/16 Guaifenesin/Codeine Phosphate [Cheratussin AC Syrup] 1 tsp PO Q4H PRN 01/05/16 Hydroxyzine Pamoate 1 cap PO TID PRN 01/05/16 Nifedipine [Nifedipine ER] 1 tab PO BID 01/05/16 Omeprazole 1 cap PO DAILY 01/05/16 Carvedilol [Coreg*] 12.5 mg PO BID #60 tab 05/08/17 Ramipril [Altace*] 5 mg PO DAILY #30 cap 05/08/17 Clonidine HCl 1 tab PO BID 11/21/17 Furosemide 1 tab PO DAILY 11/21/17 Isosorbide Mononitrate [Isosorbide Mononitrate ER] 30 mg PO DAILY 11/21/17 Trazodone [Desyrel*] 50 mg PO DAILY PRN 11/21/17 - Past Medical/Surgical History Has patient received pneumonia vaccine in the past: Yes Diabetic: No -: HTN -: COPD -: STROKE -: HEP C -: ESRD -: Dialysis- T//Sat -: [facility]DA fistula -: -: Cholecystectomy - Family History Mother -: Heart disease - Social History Smoking Status: Current every day smoker Alcohol use: No CD- Drugs: No Caffeine use: Yes Place of Residence: Home Review of Systems General: As per HPI Physical Examination - Vital Signs Temperature: 99.2 F Blood Pressure: 130/60 Pulse: 87 Respirations: 20 Pulse Ox (%): 93 - Physical Exam General: Alert, In no apparent distress HEENT: Atraumatic, PERRLA, Mucous membr. moist/pink, EOMI, Sclerae nonicteric Neck: Supple, 2+ carotid pulse no bruit, No LAD, Without JVD or thyroid abnormality Respiratory: Clear to auscultation bilaterally, Normal air movement Cardiovascular: Regular rate/rhythm, Normal S1 S2 Gastrointestinal: Normal bowel sounds, No tenderness Musculoskeletal: No tenderness Integumentary: No rashes Neurological: Normal gait, Normal speech, Normal strength at 5/5 x4 extr, Normal tone, Normal affect Lymphatics: No axilla or inguinal lymphadenopathy - Diagnosis (Problem(s)) (1) Congestive heart failure Current Visit: Yes Status: Chronic Qualifiers: Heart failure type: combined systolic and diastolic (2) Volume overload Onset Date: 05/08/17 Current Visit: No Status: Acute Qualifiers: Hypervolemia type: other (3) ESRD (end stage renal disease) on dialysis Onset Date: 01/06/16 Current Visit: No Status: Chronic (4) HTN (hypertension) Onset Date: 05/08/17 Current Visit: No Status: Chronic Qualifiers: Hypertension type: essential hypertension Treatment Summary: Overall Pt remained stable during hospital stay. Pt was initially admitted to the hospital due to volume overload due to miss Dialysis. Pt received 2 treatment of dialysis here in the hospital. Was feeling well and then Discharge home under stable condition. Nephrology was consulted and agreed with the plan as well. - Disposition Disposition: ROUTINE DISCHARGE Condition: GOOD Diet: Regular Activity: Ad giselle
[2017-11-22 17:16] VITALS: BP 131/74; TEMP 98.4
--- NOTE | 2017-11-22 17:45 | PN ---
Date of Progress Note: 11/22/2017 Subjective: The patient is doing okay. Denies any complaints. Her shortness of breath is improving . She states that she missed her dialysis because of transportation issues. Physical Examination: Vital Signs: Have been reviewed and are stable. General: She appears in no acute distress. Lungs: Auscultation of lungs revealed bilateral equal air entry anteriorly with occasional crackles at the bases posteriorly. Abdomen: Soft. Extremities: Without any evidence of edema. Laboratory Data: At this time showing improving potassium, BUN, and creatinine, sodium of 133. CBC showed stable hemoglobin, hematocrit, and platelet count. Current Medications: Have all been reviewed. Impression: 1.End-stage renal disease, on dialysis, missing dialysis treatments secondary to transportation issu es. We will request social work consult to arrange for transportation to prevent further missing rafi lysis and further hospitalizations. 2.Anemia secondary to renal insufficiency, currently stable. Continue Epogen. 3.Hypertension, stable. 4.Volume overload secondary to missing dialysis. Continue all the medications. Plan: The patient will have dialysis today and ultrafiltration will be done to improve her volume st atus. Continue all other medications and plan of care. The patient was counseled regarding the comp liance with her dialysis treatments. She understands and is agreeable to follow up at the dialysis unit. RORO/MODLuis Voice ID: [id number] Report ID: [id number]
[2017-11-22 22:13] VITALS: O2SAT 99
== END 2017-11-22 22:07 | disposition home or self-care (01) | DRG 291 ==
LOC: ER 22:25 → ERHOLD 11-21 00:22 → 2ND 11-21 01:45
PROVIDERS: ADMIT Hospitalist; ATTEND Hospitalist
PROC: 5A1D70Z Performance of Urinary Filtration, Intermittent, Less than 6 Hours Per Day (ICD-10-PCS; principal; 2017-11-21)
PROC: 5A1D70Z Performance of Urinary Filtration, Intermittent, Less than 6 Hours Per Day (ICD-10-PCS; 2017-11-21)
DX: I13.2 Hypertensive heart and chronic kidney disease with heart failure and with stage 5 chronic kidney disease, or end stage renal disease (principal); N18.6 End stage renal disease; I50.33 Acute on chronic diastolic (congestive) heart failure; E87.5 Hyperkalemia; D63.1 Anemia in chronic kidney disease; Z86.73 Personal history of transient ischemic attack (TIA), and cerebral infarction without residual deficits; Z91.14 Patient's other noncompliance with medication regimen; F17.210 Nicotine dependence, cigarettes, uncomplicated; J44.9 Chronic obstructive pulmonary disease, unspecified
CPT/HCPCS: 36415; 71045; 80048; 80053; 80076; 81003; 81015; 82550; 82553; 82962; 83735; 83880; 84484; 85025; 85610; 85730; 90935; 93005; 96365; 96375; 99285; G0257; J0360; Q4081

== ENCOUNTER 2018-01-09 08:49 | Observation (INO) | payer OTHER ==
--- OUTSIDE RECORDS SUMMARY | 2018-01-09 08:52 | XMS REPORT | Clinical Summary ---
:1960 Author Organization [facility] Address [address] [place] [address] Phone Care Team Providers Name Role Phone [...] INFLUENZA VACCINE 04/02/2018 Implants Implanted Type Area Asl Interpreter Device Expiration Model / Identifier Date Serial / Lot Grft Hemshld Dbl Jarrod 2.0x6.0in [id number] - [id number] Graft/Pat GETINGE 01/30/2019 [id number] / Implanted: Qty: 1 on 01/25/2016 by Sherif Bañuelos MD IND: [id number]:CV / [id number] Results Not on fileafter 01/08/2017
--- OUTSIDE RECORDS SUMMARY | 2018-01-09 08:52 | XMS REPORT | Continuity of Care Document ---
:1960 Author Organization Interface Problems Problem Status Onset Classification Date Comments Source Date Reported NUMBNESS Active 01/09/[address] ISCHEMIC STROKE Active 01/09/[address] Methicillin Active 06/11/20 Problem 01/13/2017 Problem resistant 09 added by [facility] Staphylococcus Discern [facility] aureus<sup>2, Expert. 3</sup> Final: Cerebral 01/13/2017 infarction, [facility] unspecified [facility] Bipolar disorder Resolved Problem 01/13/2017 [facility] CKD (<span Resolved Problem 01/13/2017 ID="[id number]" [facility] >Confirmed</span> [facility] ) COPD (<span Resolved Problem 01/13/2017 ID="[id number]"> [facility] Confirmed</span>) [facility] CVA (<span Resolved Problem 01/13/2017 ID="[id number]" [facility] >Confirmed</span> [facility] ) Dialysis Resolved Problem 01/13/2017 started patient<sup>1</najera approx 2013 [facility] Gall[facility] Resolved Problem 01/13/[address] [facility] Heart attack Resolved Problem 01/13/2017 [facility] Hepatitis C Resolved Problem 01/13/2017 [facility] HTN (<span Resolved Problem 01/13/2017 ID="[id number]"> [facility] Confirmed</span>) [facility] Simple obesity Active Problem 01/13/2017 [facility] Smoker Resolved Problem 01/13/2017 [facility] ILLNESS, Active UNSPECIFIED [facility] CEREBRAL Active INFARCTION, [facility] Medications Medication Details Route Status Patient Ordering Order Source Instructions Provider Date atorvastatin 10 mg, 1 tab, No Longer Route: PO, Drug Active 2016 [facility] form: TAB, [facility] Bedtime, Dosing Weight 76.007, kg, Start date: 01/09/17 21:00:00 CDT, Duration: 30 day, Stop date: 02/07/17 21:00:00 CDTNotes: (Same As: Lipitor) aspirin 81 mg 81 mg=1 tab, Active tablet, enteric PO, Daily, # 30 2016 [facility] coated tab, 0 [facility] Refill(s) atorvastatin 10 10 mg=1 tab, Active mg oral tablet PO, Bedtime, # 2017 [facility] 30 tab, 0 [facility] Refill(s) heparin 5,000 unit, 1 No Longer mL, Route: Active 2016 [facility] SUB-Q, Drug [facility] form: INJ, Q8H, Start date: 01/09/17 16:00:00 CDT, Duration: 30 day, Stop date: 02/08/17 8:00:00 CDTNotes: porcine heparin gabapentin 100 300 mg, 1 cap, No Longer MG Oral Capsule Route: PO, Drug Active 2016 [facility] form: CAP, City Bedtime, Dosing Weight 76.007, kg, Start date: 01/08/17 21:00:00 CDT, Duration: 30 day, Stop date: 02/06/17 21:00:00 CDTNotes: (Same as: Neurontin) Saline Flush 10 ml, Route: Inactive 0.9% IVP, Drug Form: 2016 [facility] INJ, Dosing [facility] Weight 76.007, kg, Q12H, Start date: 01/08/17 21:00:00 CDT, Duration: 30 day, Stop date: 02/07/17 9:00:00 CDT Hydroxyzine 50 mg, 2 tab, No Longer Route: PO, Drug Active 2016 [facility] form: TAB, TID, [facility] Dosing Weight 76.007, kg, Start date: 01/08/17 19:00:00 CDT, Duration: 30 day, Stop date: 02/07/17 17:00:00 CDTNotes: (Same as: Atarax) Avoid alcohol. ARIPiprazole 10 mg, 2 tab, No Longer Route: PO, Drug Active 2016 [facility] form: TAB, City Daily, Dosing Weight 76.007, kg, Start date: 01/08/17 19:00:00 CDT, Duration: 30 day, Stop date: 02/07/17 9:00:00 CDTNotes: Non-Formulary Drug. (Same as: Abilify) Amlodipine 10 mg, 2 tab, No Longer Route: PO, Drug Active [address] [place] [address] form: TAB, [facility] Daily, Dosing Weight 76.007, kg, Start date: 01/08/17 18:26:00 CDT, Duration: 30 day, Stop date: 02/07/17 9:00:00 CDTNotes: (Same as: Norvasc) Sertraline 50 mg, 1 tab, No Longer Route: PO, Drug Active 2016 [facility] form: TAB, [facility] Daily, Dosing Weight 76.007, kg, Start date: 01/08/17 18:25:00 CDT, Duration: 30 day, Stop date: 02/07/17 9:00:00 CDTNotes: (Same as: Zoloft) Clonidine 0.2 mg, 2 tab, No Longer Hydrochloride Route: PO, Drug Active 2016 [facility] Oral form: TAB, TID, [facility] Tablet Dosing Weight 76.007, kg, Start date: 01/08/17 18:24:00 CDT, Duration: 30 day, Stop date: 02/07/17 17:00:00 CDTNotes: (Same As: Catapres) 200 ACTUAT 2.49 mg, 3 mL, No Longer Albuterol 0.09 Route: NEB, Active 2016 [facility] MG/ACTUAT Drug Form: [facility] Metered Dose SOLN, Dosing Inhaler [ProAir Weight 76.007, HFA] kg, RQID, PRN Wheezing, Start date: 01/08/17 18:00:00 CDT, Duration: 30 day, Stop date: 02/07/17 17:59:00 CDTNotes: SEE RT DOCUMENTATION (Same as: Proventil) Hydralazine 10 mg, 0.5 mL, No Longer Route: IV, Drug Active 2016 [facility] form: INJ, Q4H, [facility] Dosing Weight 76.007, kg, PRN Elevated BP, Start date: 01/08/17 17:42:00 CDT, Duration: 30 day, Stop date: 02/07/17 17:41:00 CDTNotes: (Same as: Apresoline) Push over 5 minutes Clonidine 0.1 mg=0.5 tab, Active Hydrochloride PO, TID, 0 2016 [facility] 0.2 MG Oral Refill(s) [facility] Tablet ARIPiprazole 10 10 mg=1 tab, Active mg oral tablet PO, Daily, # 30 2016 [facility] tab, 0 [facility] Refill(s) Amlodipine 10 mg, PO, Active Daily, 0 2016 [facility] Refill(s) [facility] sertraline 50 50 mg=1 tab, Active mg oral tablet PO, Daily, 0 2016 [facility] Refill(s) [facility] gabapentin 100 300 mg=3 cap, Active MG Oral Capsule PO, Bedtime, 0 2016 [facility] Refill(s) [facility] Hydroxyzine 50 mg, PO, TID, Active 0 Refill(s) [address] [facility] Enoxaparin 30 mg, 0.3 mL, No Longer Route: SUB-Q, Active 2016 [facility] Drug form: INJ, [facility] [id number], Dosing Weight 76.007, kg, Start date: 01/08/17 17:00:00 CDT, Stop date: 02/06/17 17:00:00 CDTNotes: (Same as: Lovenox) aspirin 81 mg 81 mg, 1 tab, No Longer tablet, enteric Route: PO, Drug Active 2016 [facility] coated form: ECTAB, [facility] Daily, Dosing Weight 76.007, kg, Start date: 01/08/17 16:49:00 CDT, Duration: 30 day, Stop date: 02/07/17 9:00:00 CDTNotes: Do not crush or chew. (Same As: Ecotrin) Famotidine 20 mg, 1 tab, No Longer Route: PO, Drug Active 2016 [facility] form: TAB, [facility] Q12H, Dosing Weight 76.007, kg, Start date: 01/08/17 16:49:00 CDT, Duration: 30 day, Stop date: 02/07/17 9:00:00 CDTNotes: (Same as: Pepcid) Sodium Chloride 25 mL, Route: No Longer 0.9% IV IVP, Start Active 2016 [facility] date: 01/08/17 [facility] 16:48:00 CDT, Duration: 30 day, Stop date: 02/07/17 16:47:00 CDT, PRN Line Flush BD Normal 10 mL, Route: No Longer Saline Flush IVP, Drug Form: Active 2016 [facility] INJ, PRN, PRN [facility] Line Flush, Start date: 01/08/17 16:48:00 CDT, Duration: 30 day, Stop date: 02/07/17 16:47:00 CDTNotes: (Same as: BD Posiflush) BD Normal 5 mL, Route: No Longer Saline Flush IVP, Drug Form: Active 2016 [facility] INJ, PRN, PRN [facility] Line Flush, Start date: 01/08/17 16:47:00 CDT, Duration: 30 day, Stop date: 02/07/17 16:46:00 CDTNotes: (Same as: BD Posiflush) Saline Flush 10 ml, Route: Inactive 0.9% IVP, Drug Form: 2016 [facility] INJ, Dosing City Weight 76.007, kg, PRN, PRN Line Flush, Start date: 01/08/17 16:41:00 CDT, Duration: 30 day, Stop date: 02/07/17 16:40:00 CDT Allergies, Adverse Reactions, Alerts Substance Category Reaction Severity Reaction Status Date Comments Source type Reported NKDA Assertion Drug Active allergy [facility] Immunizations Immunization Date Site Status Last Comments Source Given Updated pneumococcal Right completed Jimenez [facility] 13-valent vaccine 7 [facility] tetanus-diphtheri Right completed Katya [facility] a toxoids 9 [facility] Results Order Name Results Value Reference Date Interpretation Comments Source Range CHEM PANEL eGFR 14 01/10 Result Comment: The eGFR is calculated using the CKD-EPI formula. In most young, healthy individuals the eGFR will be >90 mL/ min/1.73m2. The eGFR declines with age. An eGFR of 60-89 may be normal in mL/min/1.7 /2016 some populations, particularly the elderly, for whom the CKD-EPI formula has not been extensively validated. Use of the eGFR is not recommended in the following populations: [address] Individuals with unstable creatinine concentrations, including patients and those with serious co-morbid conditions. Patients with extremes in muscle mass or diet. The data above are obtained from the National Kidney Disease Education Program (NKDEP) which additionally recommends that when the eGFR is used in patients with extremes of body mass index for purposes of drug dosing, the eGFR should be multiplied by the estimated BMI. CHEM PANEL Creatinine 3.84 mg/dL 0.50 - 01/10 Lvl [address] [facility] CHEM PANEL Calcium Lvl 8.3 mg/dL 8.5 - 10.5 01/[address] [facility] CHEM PANEL AGAP 10.1 meq/L 10.0 - 01/10 MH 20.[address] [facility] CHEM PANEL CO2 32 meq/L 24 - 32 01/[address] [facility] CHEM PANEL Chloride Lvl 102 meq/L 95 - 109 01/[address] [facility] CHEM PANEL Potassium 4.1 meq/L 3.5 - 5.1 01/[address] [facility] CHEM PANEL Sodium Lvl 140 meq/L 135 - 145 01/[address] [facility] CHEM PANEL BUN 9 mg/dL 7 - 22 01/[address] [facility] CHEM PANEL Glucose Lvl 91 mg/dL 70 - 99 01/[address] [facility] CHEM PANEL Phosphorus 2.6 mg/dL 2.5 - 4.5 01/[address] [facility] IMMUNOLOGY Hep Bs Ag Negative Negative 01/09 [facility] (01/09/17 6:45 PM) DRUG SCREEN UDS Note See Note 01/08 [facility] (01/08/17 6:00 PM) DRUG SCREEN U Benzodia Negative Negative 01/08 [facility] (01/08/17 6:00 PM) DRUG SCREEN U Pinky Scr Negative Negative 01/08 [facility] (01/08/17 6:00 PM) DRUG SCREEN U Cocaine Negative Negative 01/08 [facility] (01/08/17 6:00 PM) DRUG SCREEN U Cannab Scr Negative Negative 01/08 [facility] (01/08/17 6:00 PM) DRUG SCREEN U Phencyc Negative Negative 01/08 [facility] (01/08/17 6:00 PM) DRUG SCREEN U Opiate Scr Negative Negative 01/08 [facility] (01/08/17 6:00 PM) DRUG SCREEN U Amph Scr Negative Negative 01/08 [facility] (01/08/17 6:00 PM) URINE AND UA <=1.0 0.1 - 1.0 01/08 STOOL Urobilinogen mg/dL /[address] [facility] URINE AND UA Ketones Negative 01/[address] [facility] URINE AND UA Color Straw 01/[address] [facility] URINE AND UA pH >=9.0 5.0 - 8.0 01/08 [facility] *ABN* [facility] (01/08/17 6:00 PM) URINE AND UA RBC null 0 - 2 01/[address] [facility] URINE AND UA WBC 1 /HPF 0 - 5 01/[address] [facility] URINE AND UA Glucose Negative Negative 01/08 STOOL mg/dL mg/dL [facility] URINE AND UA Spec Grav 1.004 <=1.030 01/[address] [facility] URINE AND UA Nitrite Negative Negative 01/08 STOOL [facility] (01/08/17 6:00 PM) [facility] URINE AND UA Protein 30 mg/dL Negative 01/08 STOOL mg/dL [facility] URINE AND UA Turbidity Clear Clear 01/08 STOOL [facility] (01/08/17 6:00 PM) [facility] URINE AND UA Bili Negative Negative 01/08 [facility] *NA* [facility] (01/08/17 6:00 PM) URINE AND UA Blood Negative Negative 01/08 [facility] (01/08/17 6:00 PM) [facility] URINE AND UA Mucus Few /LPF None Seen 01/08 STOOL /LPF /[address] [facility] URINE AND UA Sq Epi Few /LPF Few /LPF 01/[address] [facility] URINE AND UA Leuk Est Negative Negative 01/08 STOOL [facility] (01/08/17 6:00 PM) [facility] URINE AND UA Bacteria Occasional None Seen 01/08 STOOL /HPF /HPF /[address] [facility] HEMATOLOGY PTT 36.2 s 22.9 - 01/08 MH 35.8 /[address] [facility] HEMATOLOGY INR 1.05 0.85 - 01/[address] [facility] HEMATOLOGY PT 13.9 s 12.0 - / MH 14.[address] [facility] LIPIDS VLDL 22 01/[address] [facility] LIPIDS LDL 50 mg/dL <=99 mg/dL 01/08 MH (Calculated) [facility] LIPIDS Chol 145 mg/dL <=199 01/08 mg/dL [facility] LIPIDS Trig 109 mg/dL <=149 01/08 mg/dL [facility] LIPIDS HDL 73 mg/dL >=61 mg/dL 01/[address] [facility] LIPIDS CHD Risk 1.99 3.90 - 07 MH 5.80 /[address] [facility] SPECIAL Hgb A1C 4.6 % <=5.6 % 01/08 CHEMISTRY /[address] [facility] CHEM PANEL B/C Ratio 3 6 - 25 01/[address] [facility] CHEM PANEL AGAP 14.4 meq/L 10.0 - 01/08 MH 20.[address] [facility] CHEM PANEL Globulin 5.5 g/dL 2.7 - 4.2 01/[address] [facility] CHEM PANEL A/G Ratio 0.6 0.7 - 1.6 01/[address] [facility] CHEM PANEL eGFR 8 01/08 Result Comment: The eGFR is calculated using the CKD-EPI formula. In most young, healthy individuals the eGFR will be >90 mL/ min/1.73m2. The eGFR declines with age. An eGFR of 60-89 may be normal in mL/min/1.7 some populations, particularly the elderly, for whom the CKD-EPI formula has not been extensively validated. Use of the eGFR is not recommended in the following populations: [address] Individuals with unstable creatinine concentrations, including patients and those with serious co-morbid conditions. Patients with extremes in muscle mass or diet. The data above are obtained from the National Kidney Disease Education Program (NKDEP) which additionally recommends that when the eGFR is used in patients with extremes of body mass index for purposes of drug dosing, the eGFR should be multiplied by the estimated BMI. CHEM PANEL Glucose Lvl 85 mg/dL 70 - 99 01/[address] [facility] CHEM PANEL CO2 26 meq/L 24 - 32 01/[address] [facility] CHEM PANEL ALT 14 unit/L 0 - 65 01/[address] [facility] CHEM PANEL Creatinine 6.23 mg/dL 0.50 - 01/08 Lvl 1.[address] [facility] CHEM PANEL Albumin Lvl 3.3 g/dL 3.5 - 5.0 01/[address] [facility] CHEM PANEL BUN 16 mg/dL 7 - 22 01/[address] [facility] CHEM PANEL AST 24 unit/L 0 - 37 01/[address] [facility] CHEM PANEL Bili Total 0.5 mg/dL 0.2 - 1.3 01/[address] [facility] CHEM PANEL Total 8.8 g/dL 6.4 - 8.4 01/[address] [facility] CHEM PANEL Alk Phos 215 unit/L 39 - 136 01/[address] [facility] CHEM PANEL Chloride Lvl 101 meq/L 95 - 109 01/[address] [facility] CHEM PANEL Potassium 5.4 meq/L 3.5 - 5.1 01/[address] [facility] CHEM PANEL Calcium Lvl 9.1 mg/dL 8.5 - 10.5 01/[address] [facility] CHEM PANEL Sodium Lvl 136 meq/L 135 - 145 01/[address] [facility] CHEM PANEL Magnesium 2.4 mg/dL 1.8 - 2.4 01/[address] [facility] HEMATOLOGY Hgb 10.5 g/dL 12.0 - 01/08 MH 16.[address] [facility] HEMATOLOGY Hct 31.5 % 36.0 - 01/08 MH 48.[address] [facility] HEMATOLOGY WBC 9.0 K/CMM 3.7 - 10.4 01/[address] [facility] HEMATOLOGY RBC 3.70 M/CMM 4.20 - 01/08 MH 5.40 /[address] [facility] HEMATOLOGY MCV 85.3 fL 80.0 - 01/08 MH 98.[address] [facility] HEMATOLOGY MCH 28.5 pg 27.0 - 01/08 MH 31.[address] [facility] HEMATOLOGY MCHC 33.4 g/dL 32.0 - 01/08 MH 36.[address] [facility] HEMATOLOGY RDW 12.9 % 11.5 - 07 MH 14.5 /[address] [facility] HEMATOLOGY Platelet 212 K/CMM 133 - 450 01/[address] [facility] HEMATOLOGY MPV 9.0 fL 7.4 - 10.4 01/[address] [facility] HEMATOLOGY Monocytes 12.8 % 2.0 - 12.0 01/[address] [facility] HEMATOLOGY Segs 43.7 % 45.0 - 07 MH 75.[address] [facility] HEMATOLOGY Lymphocytes 40.4 % 20.0 - 01/08 MH 40.[address] [facility] HEMATOLOGY Segs-Bands # 4.0 K/CMM 1.5 - 8.1 01/[address] [facility] HEMATOLOGY Eosinophils 1.9 % 0.0 - 4.0 01/[address] [facility] HEMATOLOGY Monocytes # 1.2 K/CMM 0.0 - 0.8 01/[address] [facility] HEMATOLOGY Lymphocytes 3.7 K/CMM 1.0 - 5.5 01/[address] [facility] HEMATOLOGY Basophils 1.2 % 0.0 - 1.0 01/[address] [facility] HEMATOLOGY Eosinophils 0.2 K/CMM 0.0 - 0.5 01/[address] [facility] HEMATOLOGY Basophils # 0.1 K/CMM 0.0 - 0.2 01/[address] 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 No intravenous gadolinium was given. FINDINGS: BRAIN PARENCHYMA: No restricted diffusion is identified. Moderate to significant chronic microvascular ischemia is present within the supratentorial white matter. Bilateral thalamic small chronic infarc ts are seen with hemosiderin deposition. No acute intracranial hemorrhage is identified. Mild generalized cerebral atrophy is present. The brainstem appears unremarkable. CEREBELLOPONTINE REGIONS, SELLA, AND SKULL: The cerebellopontine angles appear unremarkable.. No skull abnormality is seen. The pituitary gland appears unremarkable. VENTRICLES/EXTRA-AXIAL: The ventricles and sulci are normal in size and configuration for age. VISUALIZED VESSELS: Major intracranial flow voids are preserved. ORBITS, VISUALIZED PARANASAL SINUSES/MASTOIDS/CERVICAL SPINE: Paranasal sinuses are clear. The mastoid air cells are clear. No orbital pathology is seen. IMPRESSION: 1. No intracranial hemorrhage, mass, or acute infarct. 2. Significant chronic ischemia, including bilateral thalamic small chronic infarcts with evidence of prior hemorrhage. Vital Signs Vital Sign Value Date Comments Source Systolic (mm Hg) 128 01/10/2017 [facility] Diastolic (mm Hg) 72 01/10/2017 [facility] Respitory Rate 14 01/10/2017 [facility] Systolic (mm Hg) 100 01/10/2017 [facility] Diastolic (mm Hg) 72 01/10/2017 [facility] Respitory Rate 24 01/10/2017 [facility] Systolic (mm Hg) 118 01/10/2017 [facility] Diastolic (mm Hg) 60 01/10/2017 [facility] Respitory Rate 19 01/10/2017 [facility] BMI Calculated 32.73 01/08/2017 [facility] Weight 76.007 01/08/2017 [facility] Height 152.4 cm 01/08/2017 [facility] Encounters Location Location Encounter Encounter Reason Attending ADM DC Status Source Details Type Number For Provider Date Date Visit [facility] [id number] Tom 01/09 01/10 Cullen Muir /2016 [facility] Procedures Procedure Code Date Perfomer Comments Source section [id number] [facility] Cholecystectomy [id number] [facility]
--- OUTSIDE RECORDS SUMMARY | 2018-01-09 08:53 | XMS REPORT | Summary of Care ---
:1960 Author Organization [facility] Address [address] [place] [id number]- Encounter [facility](DARYL) [id number] Date(s): 01/08/17 - 01/10/[address] [address]- Final: Cerebral infarction, unspecified Discharge Disposition: Home or Self Care Attending Physician: Tom Muir MD Admitting Physician: Tom Muir MD Vital Signs Most recent to oldest 1 2 3 [Reference Range]: Height 152.4 cm (01/08/17 4:38 PM) Blood Pressure [90-140/60-90 128/72 mmHg 100/72 mmHg 118/60 mmHg mmHg] (01/10/17 4:00 PM) (01/10/17 2:00 PM) (01/10/17 1:11 PM) Respiratory Rate [14-20 BRMIN] 14 BRMIN 24 BRMIN 19 BRMIN (01/10/17 4:00 PM) *HI* (01/10/17 1:11 PM) (01/10/17 2:00 PM) Weight 76.007 kg (01/08/17 4:38 PM) Body Mass Index 32.73 m2 (01/08/17 4:38 PM) Problem List Condition Effective Dates Status Health Status Informant Bipolar disorder(Confirmed) Resolved CKD (chronic kidney Resolved disease)(Confirmed) COPD (chronic obstructive pulmonary Resolved disease)(Confirmed) CVA (cerebral vascular Resolved accident)(Confirmed) Dialysis patient(Confirmed)1 Resolved Gallbladder disease(Confirmed) Resolved Heart attack(Confirmed) Resolved Hepatitis C(Confirmed) Resolved HTN (hypertension)(Confirmed) Resolved Methicillin resistant Staphylococcus 06/11/09 Active aureus(Confirmed)2, 3 Simple obesity(Confirmed) Active Smoker(Confirmed) Resolved 1started approx Nares- MRSA by [id number] added by Discern Expert. Allergies, Adverse Reactions, Alerts Substance Reaction Severity Status NKDA Active Medications amLODIPine 10 mg, 2 tab, Route: PO, Drug form: TAB, Daily, Dosing Weight 76.007, kg, Start date: 01/08/17 18:26:00 CDT, Duration: 30 day, Stop date: 02/07/17 9:00:00 CDT Notes: (Same as: Norvasc) Start Date: 01/08/17 Stop Date: 01/10/17 Status: DiscontinuedamLODIPine 10 mg, PO, Daily, 0 Refill(s) Start Date: 01/08/17 Status: OrderedARIPiprazole 10 mg, 2 tab, Route: PO, Drug form: TAB, Daily, Dosing Weight 76.007, kg, Start date: 01/08/17 19:00:00 CDT, Duration: 30 day, Stop date: 02/07/17 9:00:00 CDT Notes: Non-Formulary Drug. (Same as: Abilify) Start Date: 01/08/17 Stop Date: 01/10/17 Status: DiscontinuedARIPiprazole 10 mg oral tablet 10 mg=1 tab, PO, Daily, # 30 tab, 0 Refill(s) Start Date: 01/08/17 Status: Orderedaspirin 81 mg tablet, enteric coated 81 mg, 1 tab, Route: PO, Drug form: ECTAB, Daily, Dosing Weight 76.007, kg, Start date: 01/08/17 16:49:00 CDT, Duration: 30 day, Stop date: 02/07/17 9:00: 00 CDT Notes: Do not crush or chew.(Same As: Ecotrin) Start Date: 01/08/17 Stop Date: 01/10/17 Status: Discontinuedaspirin 81 mg tablet, enteric coated 81 mg=1 tab, PO, Daily, # 30 tab, 0 Refill(s) Start Date: 01/09/17 Stop Date: 02/08/17 Status: Orderedatorvastatin 10 mg, 1 tab, Route: PO, Drug form: TAB, Bedtime, Dosing Weight 76.007, kg, Start date: 01/09/17 21:00:00 CDT, Duration: 30 day, Stop date: 02/07/17 21:00: 00 CDT Notes: (Same As: Lipitor) Start Date: 01/09/17 Stop Date: 01/10/17 Status: Discontinuedatorvastatin 10 mg oral tablet 10 mg=1 tab, PO, Bedtime, # 30 tab, 0 Refill(s) Start Date: 01/09/17 Stop Date: 02/08/17 Status: OrderedBD Normal Saline Flush 5 mL, Route: IVP, Drug Form: INJ, PRN, PRN Line Flush, Start date: 01/08/17 16: 47:00 CDT, Duration: 30 day, Stop date: 02/07/17 16:46:00 CDT Notes: (Same as: BD Posiflush) Start Date: 01/08/17 Stop Date: 01/10/17 Status: DiscontinuedBD Normal Saline Flush 10 mL, Route: IVP, Drug Form: INJ, PRN, PRN Line Flush, Start date: 01/08/17 16: 48:00 CDT, Duration:30 day, Stop date: 02/07/17 16:47:00 CDT Notes: (Same as: BD Posiflush) Start Date: 01/08/17 Stop Date: 01/10/17 Status: DiscontinuedcloNIDine 0.2 mg oral tablet 0.1 mg=0.5 tab, PO, TID, 0 Refill(s) Start Date: 01/08/17 Status: OrderedcloNIDine 0.2 mg oral tablet 0.2 mg, 2 tab, Route: PO, Drug form: TAB, TID, Dosing Weight 76.007, kg, Start date: 01/08/17 18:24:00 CDT, Duration: 30 day, Stop date: 02/07/17 17:00:00 CDT Notes: (Same As: Catapres) Start Date: 01/08/17 Stop Date: 01/10/17 Status: Discontinuedenoxaparin 30 mg, 0.3 mL, Route: SUB-Q, Drug form: INJ, [id number], Dosing Weight 76.007, kg , Start date: 01/08/17 17:00:00 CDT, Stop date: 02/06/17 17:00:00 CDT Notes: (Same as: Lovenox) Start Date: 01/08/17 Stop Date: 01/09/17 Status: Discontinuedfamotidine 20 mg, 1 tab, Route: PO, Drug form: TAB, Q12H, Dosing Weight 76.007, kg, Start date: 01/08/17 16:49:00 CDT, Duration: 30 day, Stop date: 02/07/17 9:00:00 CDT Notes: (Same as: Pepcid) Start Date: 01/08/17 Stop Date: 01/10/17 Status: Discontinuedgabapentin 100 mg oral capsule 300 mg, 1 cap, Route: PO, Drug form: CAP, Bedtime, Dosing Weight 76.007, kg, Start date: 01/08/17 21:00:00 CDT, Duration: 30 day, Stop date: 02/06/17 21:00: 00 CDT Notes: (Same as: Neurontin) Start Date: 01/08/17 Stop Date: 01/10/17 Status: Discontinuedgabapentin 100 mg oral capsule 300 mg=3 cap, PO, Bedtime, 0 Refill(s) Start Date: 01/08/17 Status: Orderedheparin 5,000 unit, 1 mL, Route: SUB-Q, Drug form: INJ, Q8H, Start date: 01/09/17 16:00: 00 CDT, Duration: 30day, Stop date: 02/08/17 8:00:00 CDT Notes: porcine heparin Start Date: 01/09/17 Stop Date: 01/10/17 Status: DiscontinuedhydrALAZINE 10 mg, 0.5 mL, Route: IV, Drug form: INJ, Q4H, Dosing Weight 76.007, kg, PRN Elevated BP, Start date: 01/08/17 17:42:00 CDT, Duration: 30 day, Stop date: 02/16 17:41:00 CDT Notes: (Same as: Apresoline)Push over 5 minutes Start Date: 01/08/17 Stop Date: 01/10/17 Status: DiscontinuedhydrOXYzine 50 mg, 2 tab, Route: PO, Drug form: TAB, TID, Dosing Weight 76.007, kg, Start date: 01/08/17 19:00:00 CDT, Duration: 30 day, Stop date: 02/07/17 17:00:00 CDT Notes: (Same as: Atarax) Avoid alcohol. Start Date: 01/08/17 Stop Date: 01/10/17 Status: DiscontinuedhydrOXYzine 50 mg, PO, TID, 0 Refill(s) Start Date: 01/08/17 Status: OrderedProAir HFA 90 mcg/inh inhalation aerosol with adapter 2.49 mg, 3 mL, Route: NEB, Drug Form: SOLN, Dosing Weight 76.007, kg, RQID, PRN Wheezing, Start date: 01/08/17 18:00:00 CDT, Duration: 30 day, Stop date: 17:59:00 CDT Notes: SEE RT DOCUMENTATION (Same as: Proventil) Start Date: 01/08/17 Stop Date: 01/10/17 Status: DiscontinuedSaline Flush 0.9% 10 ml, Route: IVP, Drug Form: INJ, Dosing Weight 76.007, kg, Q12H, Start date: 01/08/17 21:00:00 CDT, Duration: 30 day, Stop date: 02/07/17 9:00:00 CDT Start Date: 01/08/17 Stop Date: 01/08/17 Status: DeletedSaline Flush 0.9% 10 ml, Route: IVP, Drug Form: INJ, Dosing Weight 76.007, kg, PRN, PRN Line Flush , Start date: 01/08/17 16:41:00 CDT, Duration: 30 day, Stop date: 02/07/17 16:40 :00 CDT Start Date: 01/08/17 Stop Date: 01/08/17 Status: Deletedsertraline 50 mg, 1 tab, Route: PO, Drug form: TAB, Daily, Dosing Weight 76.007, kg, Start date: 01/08/17 18:25:00 CDT, Duration: 30 day, Stop date: 02/07/17 9:00:00 CDT Notes: (Same as: Zoloft) Start Date: 01/08/17 Stop Date: 01/10/17 Status: Discontinuedsertraline 50 mg oral tablet 50 mg=1 tab, PO, Daily, 0 Refill(s) Start Date: 01/08/17 Status: OrderedSodium Chloride 0.9% IV 25 mL, Route: IVP, Start date: 01/08/17 16:48:00 CDT, Duration: 30 day, Stop date: 02/07/17 16:47:00CDT, PRN Line Flush Start Date: 01/08/17 Stop Date: 01/10/17 Status: Discontinued Results ELECTROLYTES Most recent to oldest [Reference Range]: 1 2 Sodium Lvl [135-145 mEq/L] 140 mEq/L 136 mEq/L (01/10/17 2:46 AM) (01/08/17 5:20 PM) Potassium Lvl [3.5-5.1 mEq/L] 4.1 mEq/L 5.4 mEq/L (01/10/17 2:46 AM) *HI* (01/08/17 5:20 PM) Chloride Lvl [95-109 mEq/L] 102 mEq/L 101 mEq/L (01/10/17 2:46 AM) (01/08/17 5:20 PM) CO2 [24-32 mEq/L] 32 mEq/L 26 mEq/L (01/10/17 2:46 AM) (01/08/17 5:20 PM) AGAP [10.0-20.0 mEq/L] 10.1 mEq/L 14.4 mEq/L (01/10/17 2:46 AM) (01/08/17 5:20 PM) CHEM PANEL Most recent to oldest [Reference Range]: 1 2 Creatinine Lvl [0.50-1.40 mg/dL] 3.84 mg/dL 6.23 mg/dL *HI* *HI* (01/10/17 2:46 AM) (01/08/17 5:20 PM) eGFR 14 mL/min/1.73m2 1 8 mL/min/1.73m2 2 *NA* *NA* (01/10/17 2:46 AM) (01/08/17 5:20 PM) BUN [7-22 mg/dL] 9 mg/dL 16 mg/dL (01/10/17 2:46 AM) (01/08/17 5:20 PM) B/C Ratio [6-25] 3 *LOW* (01/08/17 5:20 PM) Glucose Lvl [70-99 mg/dL] 91 mg/dL 85 mg/dL (01/10/17 2:46 AM) (01/08/17 5:20 PM) Total Protein [6.4-8.4 g/dL] 8.8 g/dL *HI* (01/08/17 5:20 PM) Albumin Lvl [3.5-5.0 g/dL] 3.3 g/dL *LOW* (01/08/17 5:20 PM) Globulin [2.7-4.2 g/dL] 5.5 g/dL *HI* (01/08/17 5:20 PM) A/G Ratio [0.7-1.6] 0.6 *LOW* (01/08/17 5:20 PM) Calcium Lvl [8.5-10.5 mg/dL] 8.3 mg/dL 9.1 mg/dL *LOW* (01/08/17 5:20 PM) (01/10/17 2:46 AM) Phosphorus [2.5-4.5 mg/dL] 2.6 mg/dL (01/10/17 2:46 AM) Magnesium Lvl [1.8-2.4 mg/dL] 2.4 mg/dL (01/08/17 5:20 PM) ALT [0-65 unit/L] 14 unit/L (01/08/17 5:20 PM) AST [0-37 unit/L] 24 unit/L (01/08/17 5:20 PM) Alk Phos [39-136 unit/L] 215 unit/L *HI* (01/08/17 5:20 PM) Bili Total [0.2-1.3 mg/dL] 0.5 mg/dL (01/08/17 5:20 PM) 1Result Comment: The eGFR is calculated using the CKD-EPI formula. In most young , healthy individualsthe eGFR will be >90 mL/min/1.73m2. The eGFR declines with age. An eGFR of 60-89 may be normal in some populations, particularly the elderly, for whom the CKD-EPI formula has not been extensively validated. Use of the eGFR is not recommended in the following populations: Individuals with unstable creatinine concentrations, including patients and those with serious co-morbid conditions. Patients with extremes in muscle mass or diet. The data above are obtained from the National Kidney Disease Education Program ( NKDEP) which additionally recommends that when the eGFR is used in patients with extremes of body mass index for purposesof drug dosing, the eGFR should be multiplied by the estimated BMI.2Result Comment: The eGFR is calculated using the CKD-EPI formula. In most young, healthy individualsthe eGFR will be >90 mL/ min/1.73m2. The eGFR declines with age. An eGFR of 60-89 may be normal in some populations, particularly the elderly, for whom the CKD-EPI formula has not been extensively validated. Use of the eGFR is not recommended in the following populations: Individuals with unstable creatinine concentrations, including patients and those with serious co-morbid conditions. Patients with extremes in muscle mass or diet. The data above are obtained from the National Kidney Disease Education Program ( NKDEP) which additionally recommends that when the eGFR is used in patients with extremes of body mass index for purposesof drug dosing, the eGFR should be multiplied by the estimated BMI.LIPIDS Most recent to oldest [Reference Range]: 1 2 CHD Risk [3.90-5.80] 1.99 *LOW* (01/08/17 5:21 PM) Chol [<=199 mg/dL] 145 mg/dL (01/08/17 5:21 PM) Trig [<=149 mg/dL] 109 mg/dL (01/08/17 5:21 PM) HDL [>=61 mg/dL] 73 mg/dL (01/08/17 5:21 PM) LDL (Calculated) [<=99 mg/dL] 50 mg/dL (01/08/17 5:21 PM) VLDL 22 *NA* (01/08/17 5:21 PM) SPECIAL CHEMISTRY Most recent to oldest [Reference Range]: 1 2 Hgb A1C [<=5.6 %] 4.6 % (01/08/17 5:21 PM) DRUG SCREEN Most recent to oldest [Reference Range]: 1 2 U Amph Scr [Negative] Negative *NA* (01/08/17 6:00 PM) U Pinky Scr [Negative] Negative *NA* (01/08/17 6:00 PM) U Benzodia Scr [Negative] Negative *NA* (01/08/17 6:00 PM) U Cocaine Scr [Negative] Negative *NA* (01/08/17 6:00 PM) U Opiate Scr [Negative] Negative *NA* (01/08/17 6:00 PM) U Phencyc Scr [Negative] Negative *NA* (01/08/17 6:00 PM) U Cannab Scr [Negative] Negative *NA* (01/08/17 6:00 PM) UDS Note See Note *NA* (01/08/17 6:00 PM) URINE AND STOOL Most recent to oldest [Reference Range]: 1 2 UA Turbidity [Clear] Clear (01/08/17 6:00 PM) UA Color Straw *NA* (01/08/17 6:00 PM) UA pH [5.0-8.0] >=9.0 *ABN* (01/08/17 6:00 PM) UA Spec Grav [<=1.030] 1.004 (01/08/17 6:00 PM) UA Glucose [Negative mg/dL] Negative mg/dL *NA* (01/08/17 6:00 PM) UA Blood [Negative] Negative (01/08/17 6:00 PM) UA Ketones Negative *NA* (01/08/17 6:00 PM) UA Protein [Negative mg/dL] 30 mg/dL *ABN* (01/08/17 6:00 PM) UA Urobilinogen [0.1-1.0 mg/dL] <=1.0 mg/dL *NA* (01/08/17 6:00 PM) UA Bili [Negative] Negative *NA* (01/08/17 6:00 PM) UA Leuk Est [Negative] Negative (01/08/17 6:00 PM) UA Nitrite [Negative] Negative (01/08/17 6:00 PM) UA WBC [0-5 /HPF] 1 /HPF (01/08/17 6:00 PM) UA RBC [0-2 /HPF] <1 /HPF (01/08/17 6:00 PM) UA Bacteria [None Seen /HPF] Occasional /HPF *NA* (01/08/17 6:00 PM) UA Sq Epi [Few /LPF] Few /LPF *NA* (01/08/17 6:00 PM) UA Mucus [None Seen /LPF] Few /LPF *NA* (01/08/17 6:00 PM) IMMUNOLOGY Most recent to oldest [Reference Range]: 1 2 Hep Bs Ag [Negative] Negative *NA* (01/09/17 6:45 PM) HEMATOLOGY Most recent to oldest [Reference Range]: 1 2 WBC [3.7-10.4 K/CMM] 9.0 K/CMM (01/08/17 5:20 PM) RBC [4.20-5.40 M/CMM] 3.70 M/CMM *LOW* (01/08/17 5:20 PM) Hgb [12.0-16.0 g/dL] 10.5 g/dL *LOW* (01/08/17 5:20 PM) Hct [36.0-48.0 %] 31.5 % *LOW* (01/08/17 5:20 PM) MCV [80.0-98.0 fL] 85.3 fL (01/08/17 5:20 PM) MCH [27.0-31.0 pg] 28.5 pg (01/08/17 5:20 PM) MCHC [32.0-36.0 g/dL] 33.4 g/dL (01/08/17 5:20 PM) RDW [11.5-14.5 %] 12.9 % (01/08/17 5:20 PM) Platelet [133-450 K/CMM] 212 K/CMM (01/08/17 5:20 PM) MPV [7.4-10.4 fL] 9.0 fL (01/08/17 5:20 PM) Segs [45.0-75.0 %] 43.7 % *LOW* (01/08/17 5:20 PM) Lymphocytes [20.0-40.0 %] 40.4 % *HI* (01/08/17 5:20 PM) Monocytes [2.0-12.0 %] 12.8 % *HI* (01/08/17 5:20 PM) Eosinophils [0.0-4.0 %] 1.9 % (01/08/17 5:20 PM) Basophils [0.0-1.0 %] 1.2 % *HI* (01/08/17 5:20 PM) Segs-Bands # [1.5-8.1 K/CMM] 4.0 K/CMM (01/08/17 5:20 PM) Lymphocytes # [1.0-5.5 K/CMM] 3.7 K/CMM (01/08/17 5:20 PM) Monocytes # [0.0-0.8 K/CMM] 1.2 K/CMM *HI* (01/08/17 5:20 PM) Eosinophils # [0.0-0.5 K/CMM] 0.2 K/CMM (01/08/17 5:20 PM) Basophils # [0.0-0.2 K/CMM] 0.1 K/CMM (01/08/17 5:20 PM) PT [12.0-14.7 seconds] 13.9 seconds (01/08/17 5:21 PM) INR [0.85-1.17] 1.05 (01/08/17 5:21 PM) PTT [22.9-35.8 seconds] 36.2 seconds *HI* (01/08/17 5:21 PM) Immunizations Given and Recorded Vaccine Date Status Refusal Reason pneumococcal 13-valent vaccine 01/10/17 Given tetanus-diphtheria toxoids 06/10/09 Given Procedures Procedure Date Related Diagnosis Body Site section Cholecystectomy Social History Social History Type Response Sexual Sexually active: No. Alcohol Past, Type Beer. Frequency: 1-2 times per month. Previous treatment: None. Alcohol use interferes with work or home: No. Drinks more than intended: No. Others hurt by drinking: No. Ready to change: Yes. Household alcohol concerns: No. Smoking Status Current every day smoker; Type: Cigarettes; Number of years: 42 ; Started at age: 14.0; Previous treatment: Counseling; Ready to change: No; Concerns about tobacco use in household: Yes; Lives with someone who smokes; Cigarette Smoking Last 365 Days Yes; Reg Smoking Cessation Counseling No Assessment and Plan Extracted from: Title: Clinical Document Author: Stefano Magana MD Date: 01/10/17 Subjective: No acute events overnight. Pt reports doing well. Denies CP/SOB. No longer having left hand numbness. Objective: Vitals Tmp(F) Pulse BP RR SpO2 FIO2 01/10 07:40 ---- --- ----- 20 99 --- 01/10 07:00 97.4 --- ----- -- --- --- 01/10 06:00 ---- 51 132/76 19 98 --- 01/10 05:00 ---- 53 133/76 19 98 --- 01/10 04:00 ---- 53 135/62 20 98 --- 24 Hr Tmax: 98.7F (37.06c) at 01/09 20:00 Vital Signs are the last 5 in the past 48 hours. I&O Record In Out Bal 01/10 24hr Tot 0 0 0 01/09 24hr Tot 1210 1000 210 Physical exam: General: No acute distress, AOx3 HEENT: anicteric sclera, moist oral mucosa, no thrush Neck: No palpable lymph nodes, no enlarged thyroid Lungs: CTAB Heart: S1S2, RRR, no MRG Abdomen: Soft, non-tender, bowel sounds+ Extremities: no edema Skin: no Rash Medications (15) Active Scheduled: (10) amLODIPine 5 mg TAB 10 mg 2 tab, PO, Daily ARIPiprazole 5 mg tab 10 mg 2 tab, PO, Daily aspirin 81 mg ECT 81 mg 1 tab, PO, Daily atorvastatin 10 mg TAB 10 mg 1 tab, PO, Bedtime cloNIDine 0.1 mg TAB 0.2 mg 2 tab, PO, TID famotidine 20 mg tab 20 mg 1 tab, PO, Q12H gabapentin 300 mg CAP 300 mg 1 cap, PO, Bedtime heparin 5000 unit/1 ml INJ VL 5,000 unit 1 mL, SUB-Q, Q8H hydrOXYzine hydrochloride 25mg TAB 50 mg 2 tab, PO, TID sertraline 50 mg TAB 50 mg 1 tab, PO, Daily Continuous: (0) PRN: (5) albuterol 0.083% 3 ml neb SOLN 2.49 mg 3 mL, NEB, RQID hydrALAZINE 20 mg/1 ml VL 10 mg 0.5 mL, IV, Q4H sodium chloride 0.9% 10 ml flush syr BD 5 mL, IVP, PRN sodium chloride 0.9% 10 ml flush syr BD 10 mL, IVP, PRN sodium chloride 0.9% 100 ml INJ 25 mL, IVP, PRN Labs (Last four charted values) WBC 9.0 (JAN 08) Hgb L 10.5 (JAN 08) Hct L 31.5 (JAN 08) Plt 212 (JAN 08) Na 140 (JAN 10) 136 (JAN 08) K 4.1 (JAN 10) H 5.4 (JAN 08) CO2 32 (JAN 10) 26 (JAN 08) Cl 102 (JAN 10) 101 (JAN 08) Cr H 3.84 (JAN 10) H 6.23 (JAN 08) BUN 9 (JAN 10) 16 (JAN 08) Glucose Random 91 (JAN 10) 85 (JAN 08) Mg 2.4 (JAN 08) Phos 2.6 (JAN 10) Ca L 8.3 (JAN 10) 9.1 (JAN 08) PT 13.9 (JAN 08) INR 1.05 (JAN 08) PTT H 36.2 (JAN 08) Assessment: -ESRD on hemodialysis, MWF -history of cocaine abuse quit 1 year ago -hepatitis C -hypertension -bipolar disorder -COPD -CAD -Anemia, likely related to ESRD -Admitted with left hand numbness, MRI negative for acute stroke Plan: -No need for HD today. -Blood pressure well controlled. Continue current medications. -Hemoglobin at goal for ESRD. No need for Epogen at present. Stefano Magana M.D., [facility] Extracted from: Title: RENAL Author: Stefano Magana MD Date: 01/09/17 Reason for Consult: ESRD Referring Physician: Dr. Muir Chief Complaint: Left hand numbness HPI: 56-year-old female with past medical history of ESRD on hemodialysis MWF, history of cocaine abuse quit 1 year ago, hepatitis C, hypertension, bipolar disorder, COPD, CAD transfer from an outside ospital for further management of acute stroke. Patient reports that she went with left hand numbness of 3 day duration to an outside hospital. CT imaging revealed indeterminate right lateral thalamus infarction. She has a left upper extremity AV graft. Her last dialysis was on Monday. She denies any chest pain or shortness of breath. Denies any nausea , vomiting or diarrhea. ROS: Constitutional: ( ) fever ( ) weight loss ( ) malaise ( ) myalgias ( X ) all neg Visual: ( ) cataracts ( ) glaucoma ( ) blurred vision ( X ) all neg Cardiac: ( ) chest pain ( ) LUNSFORD ( x ) all neg Pulm: ( ) SOB ( ) cough ( ) sputum ( x ) all neg GI: ( ) vomiting ( ) diarrhea ( ) BRBPR ( ) abd pain ( x ) all neg Endo: ( ) diabetes ( ) thyroid dysfunction ( ) heat/cold intolerance ( x ) all neg : ( ) dysuria ( ) frequency ( ) hematuria ( ) urgency ( ) incomplete bladder emptying ( x ) all neg Mskl: ( ) arthritis ( ) back pain ( x ) all neg Derm: ( ) pruritis ( ) bruising ( x ) all neg Neuro: ( ) memory loss ( ) headache ( ) seizures ( x ) all neg Heme: ( ) epistaxis ( ) bruising ( x ) all neg Allergies: NKDA Medication List Active Medications Ordered albuterol: 2.49 mg, 3 mL, NEB, RQID, PRN: Wheezing. amLODIPine: 10 mg, 2 tab, PO, Daily. ARIPiprazole: 10 mg, 2 tab, PO, Daily. aspirin: 81 mg, 1 tab, PO, Daily. cloNIDine: 0.2 mg, 2 tab, PO, TID. enoxaparin: 30 mg, 0.3 mL, SUB-Q, [id number]. famotidine: 20 mg, 1 tab, PO, Q12H. gabapentin: 300 mg, 1 cap, PO, Bedtime. hydrALAZINE: 10 mg, 0.5 mL, IV, Q4H, PRN: Elevated BP. hydrOXYzine: 50 mg, 2 tab, PO, TID. pneumococcal 13-valent vaccine: 0.5 mL, IM, ONCALL. sertraline: 50 mg, 1 tab, PO, Daily. sodium chloride: 5 mL, IVP, PRN, PRN: Line Flush. sodium chloride: 10 mL, IVP, PRN, PRN: Line Flush. Sodium Chloride 0.9% IV: 25 mL, IVP, PRN, PRN: Line Flush. Suspended albuterol: 2 puff, INHALATION, QID, PRN: as needed for wheezing. amLODIPine: 10 mg, PO, Daily, 0 Refill(s). ARIPiprazole: 10 mg, 1 tab, PO, Daily, 30 tab, 0 Refill(s). cloNIDine: 0.2 mg, 1 tab, PO, TID, 0 Refill(s). gabapentin: 300 mg, 3 cap, PO, Bedtime, 0 Refill(s). hydrOXYzine: 50 mg, PO, TID, 0 Refill(s). sertraline: 50 mg, 1 tab, PO, Daily, 0 Refill(s). Medications Inactivated in the Last 72 Hours amLODIPine: 115 mg, 23 tab, PYXIS, ONCE. sodium chloride: 10 ml, IVP, PRN, PRN: Line Flush. sodium chloride: 10 ml, IVP, Q12H. Past medical history: Hepatitis C Gallbladder disease HTN (hypertension) Bipolar disorder COPD (chronic obstructive pulmonary disease) Heart attack CVA (cerebral vascular accident) Dialysis patient CKD (chronic kidney disease) Smoker Past surgical history: Cholecystectomy section Social History: Sexual Details: Sexually active: No. Alcohol Details: Past, Type Beer. Frequency: 1-2 times per month. Previous treatment : None. Alcohol use interferes with work or home: No. Drinks more than intended: No. Others hurt by drinking: No. Ready to change: Yes. Household alcohol concerns: No. Tobacco Details: Use: Current every day smoker. Type: Cigarettes. 41 year(s). Started age 14.0 Years. Previous treatment: Counseling. Ready to change: No. Household tobacco concerns: Yes. Tobacco smoke e xposure: Lives with someone who smokes. Did the Patient Smoke Cigarettes Anytime During the Last 365 Days? Yes. Cessation Counseling Provided? No. Family History: Mother: Heart attack Brother: Type 2 diabetes mellitus Grandparent: Heart attack Examination: Vitals Tmp(F) Pulse BP RR SpO2 FIO2 01/09 07:00 98.0 48 161/130 20 --- --- 01/09 05:29 ---- 53 ----- 19 --- --- 01/09 04:00 98.4 53 151/95 21 --- --- 01/09 03:00 ---- 52 166/84 19 --- --- 01/09 02:00 ---- 49 154/117 21 --- --- 24 Hr Tmax: 98.6F (37.00c) at 01/08 18:03 Vital Signs are the last 5 in the past 48 hours. I&O Record In Out Bal 24hr Tot 0 0 0 24hr Tot 0 0 0 CCL error: %NBJ-T-106-SMT_EDOC_COMMON(0,0)[id number] on array out of bound at (size:1,occur:10). CCL error: %FSX-Z-413-SMT_EDOC_COMMON(0,0)[id number]:1146Overflow on array out of bound at (size:1,occur:5). CCL error: %TAO-B-145-SMT_EDOC_COMMON(0,0)[id number]:1146Overflow on array out of bound at (size:1,occur:5). CCL error: %WER-L-118-SMT_EDOC_COMMON(0,0)[id number] on array out of bound at (size:1,occur:7). CCL error: %XLJ-A-926-SMT_EDOC_COMMON(0,0)[id number] on array out of bound at (size:1,occur:2). Physical exam: General: No acute distress, AOx3 HEENT: anicteric sclera, moist oral mucosa, no thrush Neck: No palpable lymph nodes, no enlarged thyroid Lungs: CTAB Heart: S1S2, RRR, no MRG Abdomen: Soft, non-tender, bowel sounds+ Extremities: no edema Skin: no Rash Labs (Last four charted values) WBC 9.0 (JAN 08) Hgb L 10.5 (JAN 08) Hct L 31.5 (JAN 08) Plt 212 (JAN 08) Na 136 (JAN 08) K H 5.4 (JAN 08) CO2 26 (JAN 08) Cl 101 (JAN 08) Cr H 6.23 (JAN 08) BUN 16 (JAN 08) Glucose Random 85 (JAN 08) Mg 2.4 (JAN 08) Ca 9.1 (JAN 08) PT 13.9 (JAN 08) INR 1.05 (JAN 08) PTT H 36.2 (JAN 08) Assessment: -ESRD on hemodialysis, MWF -history of cocaine abuse quit 1 year ago -hepatitis C -hypertension -bipolar disorder -COPD -CAD -transferred from an outside hospital for further management of acute stroke -Anemia, likely related to ESRD Plan: -We will arrange HD today. She has a left upper extremity AV graft for access. -Defer blood pressure management to neurology. She is currently on permissive hypertension. -Hemoglobin at goal for ESRD. No need for Epogen at present. -We will check PTH and phosphorus levels. Thank you for allowing us to participate in the care of this patient with you. d/w Dr. Wood Magana M.D., [facility] Extracted from: Title: History and Physical Author: Brendan Terry MD Date: 01/08/17 Assessment/Plan 1. Numbess of hand CT was done, apparently WNL. MRI brain has been order. Per neurology 2. Hypertension On Clonidine and Amlodipine. Cont home meds 3. DM2: SSI Prophylaxis Ambulation/Hydration Disposition Obs, expected LOS=1 midnight
[2018-01-09] MEDS ORDERED: ALBUTEROL 2.5 MG/3 ML NEB SOL ONE ×2 (09:05→10:32)
[2018-01-09] MEDS ORDERED: IPRATROPIUM BROM 0.5MG/2.5ML ONE (09:05)
[2018-01-09 09:57] LABS: Magnesium 2.6 mg/dL (1.8-2.4)
[2018-01-09 10:00] LABS: Potassium 5.9 mmol/L (3.5-5.1)
[2018-01-09 10:02] LABS: Absolute Lymphocytes (CBC) 1.6 K/uL (0.7-4.9); Absolute Monocytes 0.8 K/uL (0.1-1.3); Absolute Neutrophil 2.2 K/uL (1.8-8.0); Basophils % 1.5 % (0-1.3); Eosinophils % 2.6 % (0-4.4); Hematocrit 33.7 % (36.0-45.0); Lymphocytes % 34.1 % (15.3-44.8); MCH 28.6 pg (27.0-35.0); MCV 88.1 fL (80-100); MPV 9.2 fL (7.6-11.3); Monocytes % 16.3 % (3.3-12.3); RBC Red Blood Cell Count 3.83 M/uL (3.86-4.86)
[2018-01-09] MEDS ORDERED: INSULIN -REGULAR HUMAN 50 UNIT/0.5 ML ML ONE (10:32)
[2018-01-09] MEDS ORDERED: FUROSEMIDE 40 MG/4 ML VIAL ONE (10:32)
[2018-01-09] MEDS ORDERED: SOD POLYSTYREN SUL 15 GM/60 ML UCUP ONE (10:33)
[2018-01-09] MEDS ORDERED: D50W 25 GM/50 ML SYRINGE IV ONE (10:33)
--- NOTE | 2018-01-09 10:40 | RAD REPORT ---
EXAM DESCRIPTION: RAD - Chest Single View - 01/09/2018 9:11 am CLINICAL HISTORY: SOB Chest pain. COMPARISON: Chest Single View dated 11/22/2017; Chest Single View dated 11/20/2017; Chest Single View dated 05/06/2017; Chest Single View dated 01/11/2016 FINDINGS: Portable technique limits examination quality. Mild interstitial pulmonary edema is noted with small pleural effusions. The heart is moderately enla rged in size. No displaced fractures.Sternotomy wires. IMPRESSION: Mild CHF/ volume overload pattern.
[2018-01-09 10:42] LABS: Urine Blood NEGATIVE (NEG); Urine Glucose NEGATIVE (NEG); Urine Protein 1+ (NEG)
[2018-01-09] MEDS ORDERED: CALCIUM GLUCONATE 1gm/100 ML NS (4.65 mEq/100mL) IV ONE ×2 (10:45)
[2018-01-09 10:46] LABS: Blood Morphology Comment NOT SEEN (NOT SEEN); Platelet Estimate ADEQ
--- NOTE | 2018-01-09 11:10 | ER ---
Nurse's Notes [facility] Name: Michelle Ochoa Age: 57 yrs Sex: Female : 1960 Arrival Date: 01/09/2018 Time: 08:50 Bed 7 Private MD: Diagnosis: End stage renal disease;Hyperkalemia;Pulmonary edema Presentation: 01/09 08:50 Presenting complaint: EMS states: pt has not had dialysis since 12/28/17, [place] [facility], tw2 c/o SOB, hx: COPD, 40-50 HR. Transition of care: patient was not received from another setting of care. Onset of symptoms was January 09, 2018. Risk Assessment: Do you want to hurt yourself or someone else? Patient reports no desire to harm self or others. Initial Sepsis Screen: Does the patient meet any 2 criteria? No. Patient's initial sepsis screen is negative. Does the patient have a suspected source of infection? No. Patient's initial sepsis screen is negative. Care prior to arrival: None. 08:50 Method Of Arrival: EMS: [facility] tw2 08:50 Acuity: [facility]AID 3 tw2 Triage Assessment: 08:50 General: Appears in no apparent distress. comfortable, Behavior is calm, cooperative, sv appropriate for age. Pain: Denies pain. EENT: No signs and/or symptoms were reported regarding the EENT system. Neuro: Level of Consciousness is awake, alert, obeys commands, Oriented to person, place, time, situation, Moves all extremities. Full function. Cardiovascular: Heart tones S1 S2 present Patient's skin is warm and dry. Rhythm is sinus bradycardia Chest pain is denied Dialysis shunt: in the left arm, with palpable thrill, with no erythema, with no edema, no bleeding noted. Respiratory: Reports shortness of breath on exertion cough that is productive, Airway is patent Respiratory effort is even, unlabored, Respiratory pattern is regular, symmetrical, Breath sounds with wheezes bilaterally. Derm: Skin is normal. Historical: - Allergies: 08:54 No Known Allergies; sv 08:59 No Known Allergies; tw2 - Home Meds: 08:59 Ambien 5 mg Oral tab 1 tab once daily [Active]; Ativan 1 mg Oral tab 1 tab [Active]; tw2 clonidine HCl 0.2 mg Oral tab 1 tab 2 times per day [Active]; Coreg 12.5 mg Oral tab 1 tab 2 times per day [Active]; famotidine 40 mg Oral tab 1 tab every 6 hours [Active]; isosorbide mononitrate 30 mg Oral Tb24 1 tab once daily [Active]; Lasix 40 mg Oral tab 1 tab once daily [Active]; omeprazole 20 mg Oral cpDR 1 cap once daily [Active]; Raina-Terry 0.8 mg oral tab [Active]; Renvela 800 mg oral tab 1 tab 3 times per day [Active]; trazodone 50 mg Oral tab 1 tab 3 times per day [Active]; Zoloft 50 mg Oral tab 1 tab once daily [Active]; - PMHx: 08:54 Dialysis- T//Mon; Hypertension; Renal Disease; Anemia; CVA; PATRICK; endocarditis; sv 08:59 Hypertension; kidney failure; tw2 - PSHx: 08:54 ; Cholecystectomy; YOLANDA fistula; sv 08:59 ; Cholecystectomy; YOLANDA fistula; tw2 - Immunization history:: Adult Immunizations up to date. - Social history:: Smoking status: . - Ebola Screening: : Patient denies travel to an Ebola-affected area in the 21 days before illness onset. Screenin:05 Abuse screen: Denies threats or abuse. Nutritional screening: No deficits noted. tw2 Tuberculosis screening: No symptoms or risk factors identified. Fall Risk None identified. Assessment: 09:09 Reassessment: See triage assessment. sv 11:38 Reassessment: Patient appears in no apparent distress at this time. Patient and/or sv family updated on plan of care and expected duration. Pain level reassessed. Patient is alert, oriented x 3, equal unlabored respirations, skin warm/dry/pink. Patient states feeling better. 11:38 Reassessment: Nurse to call back for report. sv Vital Signs: 08:52 BP 131 / 99; Pulse 48; Resp 19; Temp 97.2(TE); Pulse Ox 100% on R/A; sv 09:50 BP 130 / 97; Pulse 47; Resp 17; Pulse Ox 99% on R/A; tw2 11:00 BP 129 / 70; Pulse 48; Resp 16; Pulse Ox 100% ; sv 11:38 BP 135 / 85; Pulse 49; Resp 16; Pulse Ox 100% on R/A; sv ED Course: 08:50 Patient arrived in ED. tw2 08:51 Elsy Perez, SAÚL is Primary Nurse. sv 08:52 Triage completed. tw2 08:52 Arm band placed on. tw2 08:52 Bed in low position. Call light in reach. Side rails up X 1. teletypesetter monitor on. Pulse tw2 ox on. NIBP on. 08:53 Fortino Meehan PA is PHCP. cp 08:53 Duong Vasquez MD is Attending Physician. cp 09:06 X-ray(s) taken. sv 09:09 X-ray completed. Portable x-ray completed in exam room. jb2 09:10 XRAY Chest (1 view) In Process Unspecified. EDMS 09:10 Inserted saline lock: 20 gauge in right antecubital area, using aseptic technique. em1 11:08 Nicholas Morris DO is Hospitalizing Provider. cp 11:37 No provider procedures requiring assistance completed. Patient admitted, IV remains in sv place. intact. Administered Medications: 09:04 Drug: AtroVENT Aerosol 0.5 mg Route: Inhalation; sv 09:05 Drug: Albuterol 2.5 mg Route: Inhalation; sv 10:35 Drug: Albuterol 2.5 mg Route: Inhalation; sv 10:35 Drug: Albuterol 2.5 mg Route: Inhalation; sv 10:35 Drug: Lasix 40 mg Route: IVP; Site: right antecubital; sv 10:59 Follow up: Response: No adverse reaction sv 10:59 Follow up: Response: No adverse reaction sv 10:37 Drug: Insulin Regular Human 5 units {Co-Signature: ss (Gayle Mendez RN).} Route: IVP; sv Site: right antecubital; 10:59 Follow up: Response: No adverse reaction sv 10:42 Drug: D50W 50 ml Route: IVP; Site: right antecubital; sv 10:59 Follow up: Response: No adverse reaction sv 10:45 Drug: Kayexalate 45 grams Route: PO; sv 11:52 Follow up: Response: No adverse reaction sv 10:58 Drug: Calcium Gluconate 1 grams Route: IVPB; Infused Over: 60 mins; Site: right sv antecubital; 11:51 Follow up: Response: No adverse reaction; IV Status: Completed infusion; IV Intake: sv 100ml Point of Care Testing: Blood Glucose: 11:17 Blood Glucose: 107 mg/dL; sv Ranges: Intake: 11:51 IV: 100ml; Total: 100ml. sv Outcome: 11:09 Decision to Hospitalize by Provider. cp 11:49 Admitted to Tele accompanied by tech, via stretcher, room 424, with chart, Report sv called to Martha HAYS 11:49 Condition: stable 11:49 Instructed on the need for admit. 12:17 Patient left the ED. tw2 Signatures: Dispatcher [employer] Elsy Lewis, RN RN Shamar Joseph Eric em1 Fortino Meehan PA PA cp Kristin Altamirano RN RN tw2 Gayle Mendez RN Corrections: (The following items were deleted from the chart) 08:55 08:52 BP 131 / 99; Pulse 48bpm; Resp 9bpm; Pulse Ox 100% RA; Temp 97.2F Temporal; tw2 sv
--- NOTE | 2018-01-09 11:10 | EDPHYS ---
Physician Documentation [facility] Name: Michelle Ochoa Age: 57 yrs Sex: Female : 1960 Arrival Date: 01/09/2018 Time: 08:50 Bed 7 Private MD: ED Physician Duong Vasquez HPI: 01/09 08:53 This 57 yrs old Black Female presents to ER via EMS with complaints of Shortness Of cp Breath, Hasn't had HD since 12/28/17. 08:53 The patient has shortness of breath at rest. Onset: The symptoms/episode began/occurred cp gradually. Duration: The symptoms are continuous, and are steadily getting worse. 08:53 Associated signs and symptoms: Pertinent positives: productive cough, Pertinent cp negatives: chest pain, diaphoresis, fever, hemoptysis, vomiting. Severity of symptoms: in the emergency department the symptoms are unchanged. 08:53 The patient's shortness of breath is aggravated by light activity. cp Historical: - Allergies: 08:54 No Known Allergies; sv 08:59 No Known Allergies; tw2 - Home Meds: 08:59 Ambien 5 mg Oral tab 1 tab once daily [Active]; Ativan 1 mg Oral tab 1 tab [Active]; tw2 clonidine HCl 0.2 mg Oral tab 1 tab 2 times per day [Active]; Coreg 12.5 mg Oral tab 1 tab 2 times per day [Active]; famotidine 40 mg Oral tab 1 tab every 6 hours [Active]; isosorbide mononitrate 30 mg Oral Tb24 1 tab once daily [Active]; Lasix 40 mg Oral tab 1 tab once daily [Active]; omeprazole 20 mg Oral cpDR 1 cap once daily [Active]; Raina-Terry 0.8 mg oral tab [Active]; Renvela 800 mg oral tab 1 tab 3 times per day [Active]; trazodone 50 mg Oral tab 1 tab 3 times per day [Active]; Zoloft 50 mg Oral tab 1 tab once daily [Active]; - PMHx: 08:54 Dialysis- T//Sat; Hypertension; Renal Disease; Anemia; CVA; PATRICK; endocarditis; sv 08:59 Hypertension; kidney failure; tw2 - PSHx: 08:54 ; Cholecystectomy; YOLANDA fistula; sv 08:59 ; Cholecystectomy; YOLANDA fistula; tw2 - Immunization history:: Adult Immunizations up to date. - Social history:: Smoking status: . - Ebola Screening: : Patient denies travel to an Ebola-affected area in the 21 days before illness onset. ROS: 08:55 Constitutional: Negative for body aches, chills, fever, poor PO intake. cp 08:55 Eyes: Negative for injury, pain, redness, and discharge. cp 08:55 ENT: Negative for drainage from ear(s), ear pain, sore throat, difficulty swallowing, difficulty handling secretions. 08:55 Cardiovascular: Negative for chest pain, edema, palpitations. 08:55 Respiratory: Positive for cough, with white sputum, shortness of breath, Negative for wheezing. 08:55 Abdomen/GI: Negative for abdominal pain, nausea, vomiting, and diarrhea, black/tarry stool, rectal bleeding. 08:55 : Negative for urinary symptoms. 08:55 Skin: Negative for cellulitis, rash. 08:55 Neuro: Negative for altered mental status, headache, syncope, near syncope, weakness. 08:55 All other systems are negative. Exam: 09:02 Constitutional: The patient appears in no acute distress, alert, awake, cp non-diaphoretic, non-toxic, well developed, well nourished. 09:02 Head/Face: Normocephalic, atraumatic. cp 09:02 Eyes: Periorbital structures: appear normal, Conjunctiva: normal, no exudate, no injection, Sclera: no appreciated abnormality, Lids and lashes: appear normal, bilaterally. 09:02 ENT: External ear(s): are unremarkable, Ear canal(s): are normal, clear, TM's: bulging, is not appreciated, bilaterally, dullness, bilaterally, erythema, is not appreciated, bilaterally, Nose: is normal, Mouth: Lips: moist, Oral mucosa: pink and intact, moist, Posterior pharynx: is normal, airway is patent, no erythema, no exudate, Voice: is normal. 09:02 Neck: ROM/movement: is normal, is supple, without pain, no range of motions limitations, no meningismus, no nuchal rigidity. 09:02 Chest/axilla: Inspection: normal, Palpation: is normal, no crepitus, no tenderness. 09:02 Cardiovascular: Rate: bradycardic, Rhythm: regular, Edema: is not appreciated, JVD: is not appreciated. 09:02 Respiratory: the patient does not display signs of respiratory distress, Respirations: normal, no use of accessory muscles, no splinting, no tachypnea, labored breathing, is not present, Breath sounds: decreased breath sounds, that are mild, throughout, stridor, is not appreciated, wheezing: is not appreciated. 09:02 Abdomen/GI: Inspection: abdomen appears normal, Bowel sounds: active, all quadrants, Palpation: abdomen is soft and non-tender, in all quadrants, rebound tenderness, is not appreciated, voluntary guarding, is not appreciated, involuntary guarding, is not appreciated. 09:02 Back: pain, is absent, ROM is normal. 09:02 Skin: cellulitis, is not appreciated, no rash present. 09:02 Neuro: Orientation: to person, place \T\ time. Mentation: is normal, Cerebellar function: is grossly normal, Motor: moves all fours, strength is normal, Sensation: is normal. 09:11 ECG was reviewed by the Attending Physician. Vital Signs: 08:52 BP 131 / 99; Pulse 48; Resp 19; Temp 97.2(TE); Pulse Ox 100% on R/A; sv 09:50 BP 130 / 97; Pulse 47; Resp 17; Pulse Ox 99% on R/A; tw2 11:00 BP 129 / 70; Pulse 48; Resp 16; Pulse Ox 100% ; sv 11:38 BP 135 / 85; Pulse 49; Resp 16; Pulse Ox 100% on R/A; sv MDM: 08:53 Patient medically screened. cp 10:00 Differential diagnosis: Anemia asthma, Bronchitis CHF exacerbation, Chronic Obstructive cp Pulmonary Disease pneumonia, pulmonary edema, Pulmonary Embolism Unstable Angina. 10:55 Physician consultation: Zachery Estevez DO was called at 10:55, was contacted at 10:55, regarding admission, to the telemetry unit. patient's condition, would like admission per Dr. Nicholas Morris DO. 11:00 Data reviewed: vital signs, nurses notes, lab test result(s), EKG, radiologic studies, cp plain films. 11:00 Counseling: I had a detailed discussion with the patient and/or guardian regarding: the historical points, exam findings, and any diagnostic results supporting the discharge/admit diagnosis, lab results, radiology results. 01/09 08:56 Order name: BNP; Complete Time: 10:08 cp 01/09 08:56 Order name: CBC with Diff; Complete Time: 10:53 cp 01/09 08:56 Order name: BMP; Complete Time: 10:08 cp 01/09 10:09 Interpretation: Normal except: K 5.9; CL 108; CO2 20; BUN 73; CRE 12.80; GFR 4; CA 8.2. cp 01/09 08:56 Order name: Magnesium; Complete Time: 10:08 cp 01/09 10:23 Order name: Urine Dipstick--Ancillary (enter results); Complete Time: 10:45 eb 01/09 10:46 Order name: Manual Differential; Complete Time: 10:53 EDMS 01/09 11:19 Order name: Glucose, Ancillary Testing EDMS 01/09 11:27 Order name: Urinalysis EDMS 01/09 11:27 Order name: Basic Metabolic Panel EDMS 01/09 11:27 Order name: Basic Metabolic Panel EDMS 01/09 11:27 Order name: Basic Metabolic Panel EDMS 01/09 11:27 Order name: Basic Metabolic Panel EDMS 01/09 11:27 Order name: CBC with Automated Diff EDMS 01/09 11:27 Order name: CBC with Automated Diff EDMS 01/09 08:56 Order name: XRAY Chest (1 view); Complete Time: 10:45 cp 01/09 11:27 Order name: Echo with Doppler EDMS 01/09 11:27 Order name: CBC with Automated Diff EDMS 01/09 11:27 Order name: CBC with Automated Diff EDMS 01/09 11:27 Order name: Lipid Profile EDMS 01/09 11:27 Order name: Lipid Profile EDMS 01/09 11:27 Order name: Magnesium EDMS 01/09 11:27 Order name: Magnesium EDMS 01/09 11:27 Order name: Magnesium EDMS 01/09 11:27 Order name: Magnesium EDMS 01/09 11:27 Order name: T4 Free EDMS 01/09 11:27 Order name: T4 Free EDMS 01/09 11:27 Order name: Thyroid Stimulating Hormone EDMS 01/09 11:27 Order name: Thyroid Stimulating Hormone EDMS 01/09 11:27 Order name: Chest Pa And Lat (2 Views) EDMS 01/09 08:56 Order name: EKG; Complete Time: 08:57 cp 01/09 08:56 Order name: EKG - Nurse/Tech; Complete Time: 08:58 cp 01/09 08:56 Order name: Monitor; Complete Time: 08:58 cp 01/09 08:56 Order name: IV; Complete Time: 10:48 cp 01/09 09:00 Order name: Urine Dipstick-Ancillary (obtain specimen); Complete Time: 10:21 cp 01/09 10:25 Order name: Diet Renal; Complete Time: 10:26 tw2 01/09 11:26 Order name: CONS Physician Consult EDMS EC:11 Rate is 56 beats/min. Rhythm is regular. SD interval is normal. QRS interval is normal. cp QT interval is prolonged. T waves are Inverted in leads I, aVL, V5, V6. Interpreted by me. Reviewed by me. Administered Medications: 09:04 Drug: AtroVENT Aerosol 0.5 mg Route: Inhalation; sv 09:05 Drug: Albuterol 2.5 mg Route: Inhalation; sv 10:35 Drug: Albuterol 2.5 mg Route: Inhalation; sv 10:35 Drug: Albuterol 2.5 mg Route: Inhalation; sv 10:35 Drug: Lasix 40 mg Route: IVP; Site: right antecubital; sv 10:59 Follow up: Response: No adverse reaction sv 10:59 Follow up: Response: No adverse reaction sv 10:37 Drug: Insulin Regular Human 5 units {Co-Signature: ss (Gayle Mendez RN).} Route: IVP; sv Site: right antecubital; 10:59 Follow up: Response: No adverse reaction sv 10:42 Drug: D50W 50 ml Route: IVP; Site: right antecubital; sv 10:59 Follow up: Response: No adverse reaction sv 10:45 Drug: Kayexalate 45 grams Route: PO; sv 11:52 Follow up: Response: No adverse reaction sv 10:58 Drug: Calcium Gluconate 1 grams Route: IVPB; Infused Over: 60 mins; Site: right sv antecubital; 11:51 Follow up: Response: No adverse reaction; IV Status: Completed infusion; IV Intake: sv 100ml Point of Care Testing: Blood Glucose: 11:17 Blood Glucose: 107 mg/dL; sv Ranges: Critical Glucose Levels:Adult <50 mg/dl or >400 mg/dl <40 mg/dl or >180 mg/dl Disposition: 13:05 Co-signature as Attending Physician, Duong Vasquez MD. rn Disposition: 01/09/18 11:09 Hospitalization ordered by Nicholas Morris for Observation. Preliminary diagnosis are End stage renal disease, Hyperkalemia, Pulmonary edema. - Bed requested for Telemetry/MedSurg (observation). - Status is Observation. tw2 - Condition is Stable. - Problem is an acute exacerbation. - Symptoms have improved. UTI on Admission? No Signatures: Dispatcher [employer] EDElsy Tracy RN Anny Cantrell RN SAÚL dw Duong Vasquez MD MD rn Page, Corey, PA PA cp Wise, Tara, RN RN tw2 Martha Maldonado RN ss Corrections: (The following items were deleted from the chart) 10:09 10:09 Normal except: K 5.9; CL 108; CO2 20; BUN 73; CRE 12.80; GFR 4. cp cp 11:18 11:09 Hospitalization Ordered by Nicholas Morris DO for Observation. Preliminary eb diagnosis is End stage renal disease; Hyperkalemia; Pulmonary edema. Bed requested for Telemetry/MedSurg (observation). Status is Observation. Condition is Stable. Problem is an acute exacerbation. Symptoms have improved. UTI on Admission? No. cp 11:33 11:18 01/09/2018 11:09 Hospitalization Ordered by Nicholas Morris DO for Observation. dw Preliminary diagnosis is End stage renal disease; Hyperkalemia; Pulmonary edema. Bed requested for Telemetry/MedSurg (observation). Status is Observation. Condition is Stable. Problem is an acute exacerbation. Symptoms have improved. UTI on Admission? No. eb 12:17 11:33 01/09/2018 11:09 Hospitalization Ordered by Nicholas Morris DO for Observation. tw2 Preliminary diagnosis is End stage renal disease; Hyperkalemia; Pulmonary edema. Bed requested for Telemetry/MedSurg (observation). Status is Observation. Condition is Stable. Problem is an acute exacerbation. Symptoms have improved. UTI on Admission? No. dw
[2018-01-09] MEDS ORDERED: ACETAMINOPHEN 500 MG TAB PO PRN (11:17)
[2018-01-09] MEDS ORDERED: ZOLPIDEM TARTRATE 5 MG TABLET PO PRN (11:17)
[2018-01-09] MEDS ORDERED: ONDANSETRON 4 MG/2 ML VIAL IV PRN (11:17)
--- NOTE | 2018-01-09 11:32 | P.HP ---
Certification for Inpatient Patient admitted to: Observation With expected LOS: <2 Midnights Patient will require the following post-hospital care: Home Health Services Practitioner: I am a practitioner with admitting privileges, knowledge of patient current condition, hospital course, and medical plan of care. Services: Services provided to patient in accordance with Admission requirements found in Title 42 Section 412.3 of the Code of Federal Regulations Patient History Date of Service: 01/09/18 Primary Care Provider: None; Nephrology-Dr. Estevez Reason for admission: Shortness of breath, edema History of Present Illness: 57-year-old female presented emergency room with increasing shortness of breath and edema to the lower extremity. Patient has history of end-stage renal disease on dialysis, hypertension, GERD, previous tobacco use, COPD and CHF. Patient reports that she has not had dialysis since December 28. She reports that she tried to go to dialysis on December 28 but noted that the facility was closed. She reports that the dialysis center was to be close for 1 week. She never followed up. Today she has increasing shortness of breath. Edema to the lower extremities noted. A cough is noted. She denies any chest pain, nausea or vomiting. In the ER patient was evaluated. Sodium 136, potassium 5.9, BUN of 73, creatinine 12.8 with a GFR 4. [place] [address]. X-ray showed mild CHF. The patient was given insulin, Kayexalate in the emergency room. Patient will be admitted for treatment. Nephrology has been consulted. When I saw the patient ER, she appeared comfortable. She denied any appear in any respiratory distress. Vital signs stable. Allergies No Known Allergies Allergy (Verified 11/21/17 02:27) Home medications list reviewed: Yes Home Medications: Albuterol Sulfate [Proair Hfa] 2 puff PO Q4H PRN 01/05/16 Guaifenesin/Codeine Phosphate [Cheratussin AC Syrup] 1 tsp PO Q4H PRN 01/05/16 Nifedipine [Nifedipine ER] 1 tab PO BID 01/05/16 Omeprazole 1 cap PO DAILY 01/05/16 hydrOXYzine pamoate [Hydroxyzine Pamoate] 1 cap PO TID PRN 01/05/16 Carvedilol [Coreg*] 12.5 mg PO BID #60 tab 11/06/17 Ramipril [Altace*] 5 mg PO DAILY #30 cap 05/08/17 Furosemide 1 tab PO DAILY 11/21/17 Isosorbide Mononitrate [Isosorbide Mononitrate ER] 30 mg PO DAILY 11/21/17 Trazodone [Desyrel*] 50 mg PO DAILY PRN 11/21/17 cloNIDine HCl [Clonidine HCl] 1 tab PO BID 11/21/17 - Past Medical/Surgical History Diabetic: No -: HTN -: COPD -: History of CVA -: Hepatitis-C -: ESRD, dialysis Tuesdays, and Saturdays -: Anemia of chronic disease -: History of heart surgery -: CHF -: YOLANDA fistula -: -: Cholecystectomy Psychosocial/ Personal History: Patient lives by herself. She is . She has 2 children. - Family History Mother -: Heart disease - Social History Smoking Status: Former smoker Alcohol use: No CD- Drugs: No Caffeine use: Yes Place of Residence: Home Review of Systems General: Weakness, Malaise Eyes: Unremarkable ENT: Unremarkable Respiratory: Cough, Shortness of Breath, As per HPI Cardiovascular: Edema, As per HPI Gastrointestinal: Unremarkable Genitourinary: Unremarkable Musculoskeletal: Pedal edema Integumentary: As per HPI Neurological: Weakness, As per HPI Lymphatics: Unremarkable Physical Examination - Physical Exam General: Alert, In no apparent distress, Oriented x3, Cooperative HEENT: Atraumatic Neck: Supple Respiratory: Crackles/rales (Bilateral) Cardiovascular: Normal pulses, Regular rate/rhythm Gastrointestinal: Normal bowel sounds, Soft and benign, Non-distended, No masses , No rebound, No guarding, Other (Ventral hernia noted) Musculoskeletal: No erythema, No tenderness, No warmth Integumentary: No erythema, No warmth, No cyanosis, Tenderness/swelling (1+ pitting edema to the lower extremities bilateral) Neurological: Normal speech, Normal strength at 5/5 x4 extr, Normal tone, Normal affect Lymphatics: No axilla or inguinal lymphadenopathy - Studies Laboratory Data (last 24 hrs) 01/09/18 09:20: WBC 4.8, Hgb 11.0 L, Hct 33.7 L, Plt Count 190 01/09/18 09:20: Sodium 136, Potassium 5.9 H*, BUN 73 H, Creatinine 12.80 H*, Glucose 86, Magnesium 2.6 H Assessment and Plan - Problems (Diagnosis) (1) Dyspnea Current Visit: Yes Status: Acute Plan: Secondary to CHF likely diastolic dysfunction. Will check echocardiogram. Patient will continue with fluid restriction and Lasix. Patient has not gone to dialysis in over a week. Nephrology consulted. Patient will receive dialysis. Anticipate discharge in the next 1-2 days. Compliance will be addressed in detail. Qualifiers: Dyspnea type: shortness of breath Qualified Code(s): R06.02 - Shortness of breath; R06.00 - Dyspnea, unspecified; R06.01 - Orthopnea (2) Noncompliance Current Visit: Yes Status: Chronic Plan: Noncompliance with dialysis noted. Will discuss with nephrology. (3) Anemia Onset Date: 01/06/16 Current Visit: No Status: Chronic Plan: Likely of chronic disease. Will monitor closely. Qualifiers: Anemia type: due to chronic kidney disease Chronic kidney disease stage: on chronic dialysis Qualified Code(s): N18.6 - End stage renal disease; D63.1 - Anemia in chronic kidney disease; Z99.2 - Dependence on renal dialysis (4) Volume overload Onset Date: 05/08/17 Current Visit: No Status: Acute Plan: Likely volume overload from CHF. Will check echocardiogram. Patient will receive dialysis. Qualifiers: Hypervolemia type: other (5) Congestive heart failure Current Visit: No Status: Acute Plan: Acute on chronic diastolic dysfunction. Continue as above. Will check echocardiogram. Qualifiers: Heart failure type: diastolic Heart failure chronicity: acute on chronic Qualified Code(s): I50.33 - Acute on chronic diastolic (congestive) heart failure (6) ESRD (end stage renal disease) on dialysis Onset Date: 01/06/16 Current Visit: No Status: Chronic Plan: Patient has felt go to dialysis since December 28. Patient will need dialysis today. Patient with hyperkalemia and fluid overload. Nephrology has been consulted. Patient had received treatment for hyperkalemia. Patient to get dialysis today. (7) HTN (hypertension) Onset Date: 05/08/17 Current Visit: No Status: Chronic Plan: Will verify home medication. Will provide medication for blood pressure. Qualifiers: Hypertension type: essential hypertension (8) Hyperkalemia Onset Date: 05/08/17 Current Visit: No Status: Acute Plan: Patient given insulin and Kayexalate in the emergency room. Will monitor closely. Patient will get dialysis. Discharge Plan: Home Plan to discharge in: 24 Hours - Advance Directives Does patient have a Living Will: No Does patient have a Durable POA for Healthcare: No - Code Status/Comfort Care Code Status Assessed: Yes (Patient full code.) Time Spent Managing Pts Care (In Minutes): 55
[2018-01-09] MEDS ORDERED: NA CHLORIDE 0.9% 1,000 ML IV PRN (11:53)
[2018-01-09] MEDS ORDERED: MANNITOL 25% 12.5 GM/50 ML VIAL IV PRN (11:53)
[2018-01-09] MEDS ORDERED: EPOETIN ALFA 10,000 UNIT/ML VIAL IV SCH (12:00)
[2018-01-09] MEDS ORDERED: ALBUMIN HUMAN 25% 50 ML IV SCH (12:00)
[2018-01-09] MEDS ORDERED: ALBUTEROL 2.5 MG/3 ML NEB SOL NEB PRN (16:30)
[2018-01-09] MEDS ORDERED: IPRATROPIUM BROM 0.5MG/2.5ML NEB PRN (16:30)
[2018-01-09 17:19] VITALS: BMI 4178.6
[2018-01-09] MEDS: CARVEDILOL 12.5 MG TAB PO SCH (17:29)
[2018-01-09] MEDS: ARFORMOTEROL TARTRATE 15 MCG/2 ML VIAL.NEB NEB SCH (19:51)
[2018-01-09] MEDS: HEPARIN 5000 UNIT/ML 1 ML VIAL SQ SCH (20:28)
--- NOTE | 2018-01-09 21:38 | EKG ---
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
[2018-01-10 04:38] LABS: Urine Appearance CLEAR; Urine Bilirubin NEGATIVE (NEG); Urine Blood NEGATIVE (NEG); Urine Color YELLOW; Urine Glucose NEGATIVE (NEG); Urine Protein 1+ (NEG); Urine Urobilinogen 0.2 mg/dL (0.2-1.0)
[2018-01-10 04:49] LABS: Urine Microscopic Reflex ORDER UMIC
[2018-01-10] MEDS: CARVEDILOL 12.5 MG TAB PO SCH ×2 (05:29→17:12)
[2018-01-10 06:01] LABS: Urine Bacteria <20 /HPF (<20); Urine Culture Reflex Order NOT NEEDED; Urine RBC NONE SEEN /HPF (NONE SEEN)
[2018-01-10 07:00] LABS: Absolute Lymphocytes (CBC) 1.9 K/uL (0.7-4.9); Absolute Monocytes 1.3 K/uL (0.1-1.3); Absolute Neutrophil 3.6 K/uL (1.8-8.0); Basophils % 0.8 % (0-1.3); Eosinophils % 0.8 % (0-4.4); Hematocrit 34.7 % (36.0-45.0); Lymphocytes % 27.2 % (15.3-44.8); MCH 29.1 pg (27.0-35.0); MCV 86.9 fL (80-100); MPV 9.1 fL (7.6-11.3); Monocytes % 18.8 % (3.3-12.3)
[2018-01-10] MEDS: ARFORMOTEROL TARTRATE 15 MCG/2 ML VIAL.NEB NEB SCH ×2 (08:02→20:00)
[2018-01-10 08:55] LABS: Potassium 4.7 mmol/L (3.5-5.1); Thyroid Stimulating Hormone 1.23 uIU/mL (0.36-3.74)
[2018-01-10] MEDS: HEPARIN 5000 UNIT/ML 1 ML VIAL SQ SCH (09:00)
[2018-01-10] MEDS ORDERED: FAMOTIDINE 20 MG TAB PO SCH (09:00)
[2018-01-10] MEDS ORDERED: SEVELAMER CARBONATE 800 MG TABLET PO SCH (09:00)
[2018-01-10] MEDS: ISOSORBIDE MONO SR 30 MG TAB PO SCH ×2 (09:00→14:26)
[2018-01-10] MEDS ORDERED: SERTRALINE HCL 50 MG TAB PO SCH (09:00)
[2018-01-10] MEDS: FUROSEMIDE 40 MG TABLET PO SCH ×2 (09:00→14:26)
[2018-01-10 09:15] VITALS: O2SAT 95
--- NOTE | 2018-01-10 10:46 | ECHO ---
HEIGHT: 5 ft 0 in WEIGHT: 136 lb 9.6 oz DATE OF STUDY: 01/10/[address]: Nicholas Morris DO 2-DIMENSIONAL: YES M.MODE: YES DOPPLER: YES COLOR FLOW: YES TDS: NO PORTABLE: NO DEFINITY: NO BUBBLE STUDY: NO DIAGNOSIS: EVALUATE CONGESTIVE HEART FAILURE. HISTORY OF CONGESTIVE HEART FAILURE, END STAGE RENAL FAILURE AND HYPERTENSION CARDIAC HISTORY: CATHERIZATION: NO SURGERY: YES PROSTHETIC VALVE: NO PACEMAKER: NO MEASUREMENTS (cm) DIASTOLIC (NORMALS) SYSTOLIC (NORMALS) IVSd 0.7 (0.6-1.2) LA Diam 2.7 (1.9-4.0) LVEF 72% LVIDd 4.3 (3.5-5.7) LVIDs 2.5 (2.0-3.5) %FS 41% LVPWd 0.9 (0.6-1.2) Ao Diam 2.6 (2.0-3.7) 2 DIMENSIONAL ASSESSMENT: RIGHT ATRIUM: NORMAL LEFT ATRIUM: NORMAL RIGHT VENTRICLE: NORMAL LEFT VENTRICLE: NORMAL TRICUSPID VALVE: NORMAL MITRAL VALVE: NORMAL PULMONIC VALVE: NORMAL AORTIC VALVE: NORMAL PERICARDIAL EFFUSION: NONE AORTIC ROOT: NORMAL LEFT VENTRICULAR WALL MOTION: HYPERDYNAMIC DOPPLER/COLOR FLOW: MILD TRICUSPID REGURGITATION. ESTIMATED RIGHT VENTRICULAR SYSTOLIC PRESSURE 56mmHg. MODERATE PULMONARY HYPERTENSION. COMMENTS: HYPERDYNAMIC LEFT VENTRICULAR EJECTION FRACTION. MILD TRICUSPID REGURGITATION. MODERATE PULMONARY HYPERTENSION. TECHNOLOGIST: Lynne ALLEN
--- NOTE | 2018-01-10 12:24 | P.DS ---
Admission Date: 01/09/18 Discharge Date: 01/10/18 Primary Care Provider: None; Nephrology-Dr. Estevez Disposition: ROUTINE DISCHARGE Discharge Condition: GOOD Reason for Admission: Shortness of breath, edema Consultations: Nephrology-Dr. Estevez Procedures: Echocardiogram: Ejection fraction 72%. DOPPLER/COLOR FLOW: MILD TRICUSPID REGURGITATION. ESTIMATED RIGHT VENTRICULAR SYSTOLIC PRESSURE 56mmHg. MODERATE PULMONARY HYPERTENSION. COMMENTS: HYPERDYNAMIC LEFT VENTRICULAR EJECTION FRACTION. MILD TRICUSPID REGURGITATION. MODERATE PULMONARY HYPERTENSION - Problems (1) Dyspnea Onset Date: 01/10/18 Current Visit: Yes Status: Acute Qualifiers: Dyspnea type: shortness of breath Qualified Code(s): R06.02 - Shortness of breath; R06.00 - Dyspnea, unspecified; R06.01 - Orthopnea (2) Noncompliance Onset Date: 01/10/18 Current Visit: Yes Status: Chronic (3) Anemia Onset Date: 01/06/16 Current Visit: No Status: Chronic Qualifiers: Anemia type: due to chronic kidney disease Chronic kidney disease stage: on chronic dialysis Qualified Code(s): N18.6 - End stage renal disease; D63.1 - Anemia in chronic kidney disease; Z99.2 - Dependence on renal dialysis (4) Volume overload Onset Date: 05/08/17 Current Visit: No Status: Acute Qualifiers: Hypervolemia type: other Qualified Code(s): E87.79 - Other fluid overload (5) Congestive heart failure Onset Date: 01/10/18 Current Visit: Yes Status: Acute Qualifiers: Heart failure type: diastolic Heart failure chronicity: acute on chronic Qualified Code(s): I50.33 - Acute on chronic diastolic (congestive) heart failure (6) ESRD (end stage renal disease) on dialysis Onset Date: 01/06/16 Current Visit: No Status: Chronic (7) HTN (hypertension) Onset Date: 05/08/17 Current Visit: No Status: Chronic Qualifiers: Hypertension type: essential hypertension Qualified Code(s): I10 - Essential (primary) hypertension (8) Hyperkalemia Onset Date: 05/08/17 Current Visit: No Status: Acute Brief History of Present Illness: 57-year-old female presented emergency room with increasing shortness of breath and edema to the lower extremity. Patient has history of end-stage renal disease on dialysis, hypertension, GERD, previous tobacco use, COPD and CHF. Patient reports that she has not had dialysis since December 28. She reports that she tried to go to dialysis on December 28 but noted that the facility was closed. She reports that the dialysis center was to be close for 1 week. She never followed up. Today she has increasing shortness of breath. Edema to the lower extremities noted. A cough is noted. She denies any chest pain, nausea or vomiting. In the ER patient was evaluated. Sodium 136, potassium 5.9, BUN of 73, creatinine 12.8 with a GFR 4. [place] [address]. X-ray showed mild CHF. The patient was given insulin, Kayexalate in the emergency room. Patient will be admitted for treatment. Nephrology has been consulted. When I saw the patient ER, she appeared comfortable. She denied any appear in any respiratory distress. Vital signs stable. Hospital Course: Patient did well overnight. Patient received 2 courses of hemodialysis. Hyperkalemia resolved. Patient without any significant nausea, vomiting, chest pain or shortness of breath. Compliance with dialysis was addressed in detail. Patient will continue with dialysis Tuesdays, and Saturdays. Nephrology was consulted to further assess and address. Patient will continue with a 1500 cc per day fluid restriction. Patient will also continue with Lasix 40 mg daily. Patient has pulmonary hypertension. Medications reviewed with nephrology. Patient has a history of noncompliance. At discharge patient will continue with carvedilol 12.5 mg 1 pill twice daily. Clonidine, nifedipine and ramipril has been discontinued. Recommendation is to maintain blood pressures less 150/ 80. Further adjustment can be done by her PCP. Compliance with dialysis and medications addressed in detail. This will need to be encouraged by PCP. Patient has CAD. She will continue with Imdur 30 mg daily. Vital Signs/Physical Exam: Temp Pulse Resp BP Pulse Ox 97.3 F 55 18 117/60 97 01/10/18 07:43 01/10/18 09:00 01/10/18 07:43 01/10/18 09:00 01/10/18 07:43 General: Alert, In no apparent distress, Oriented x3, Cooperative HEENT: Atraumatic Neck: Supple Respiratory: Clear to auscultation bilaterally, Normal air movement Cardiovascular: Normal pulses, Regular rate/rhythm Gastrointestinal: Normal bowel sounds, Soft and benign, Non-distended, No tenderness, No masses, No rebound, No guarding Musculoskeletal: No erythema, No tenderness, No warmth Integumentary: No tenderness/swelling, No erythema, No warmth, No cyanosis Neurological: Normal speech, Normal strength at 5/5 x4 extr, Normal tone Laboratory Data at Discharge: WBC 6.9 K/uL (4.3-10.9) D 01/10/18 05:44 Hgb 11.6 g/dL (12.0-15.0) L 01/10/18 05:44 Hct 34.7 % (36.0-45.0) L 01/10/18 05:44 Plt Count 191 K/uL (152-406) 01/10/18 05:44 Sodium 139 mmol/L (136-145) 01/10/18 05:44 Potassium 4.7 mmol/L (3.5-5.1) 01/10/18 05:44 BUN 34 mg/dL (7-18) H D 01/10/18 05:44 Creatinine 7.60 mg/dL (0.55-1.3) H* D 01/10/18 05:44 Glucose 100 mg/dL (74-106) 01/10/18 05:44 Magnesium 2.0 mg/dL (1.8-2.4) D 01/10/18 05:44 Triglycerides 79 mg/dL (<150) 01/10/18 05:44 Cholesterol 121 mg/dL (<200) 01/10/18 05:44 HDL Cholesterol 54 mg/dL (40-60) 01/10/18 05:44 Cholesterol/HDL Ratio 2.24 01/10/18 05:44 Home Medications: Omeprazole 1 cap PO DAILY 01/05/16 hydrOXYzine pamoate [Hydroxyzine Pamoate] 1 cap PO TID PRN 01/05/16 Carvedilol [Coreg*] 12.5 mg PO BID #60 tab 05/08/17 Furosemide 1 tab PO DAILY 11/21/17 Isosorbide Mononitrate [Isosorbide Mononitrate ER] 30 mg PO DAILY 11/21/17 Trazodone [Desyrel*] 50 mg PO DAILY PRN 11/21/17 Patient Discharge Instructions: 1. Patient will need a follow up with her PCP in 1 week to follow up this hospitalization. 2. Patient has end-stage renal disease on dialysis. Patient received dialysis during his stay due to pulmonary overload. Compliance with dialysis address in detail. Patient will continue with dialysis every Tuesdays, and Saturdays. Patient will need a follow up with nephrology in 1 week to monitor progress. Patient continue with a 1500 cc per day fluid restriction and Lasix 40 mg daily. 3. Patient has hypertension. Medications have been adjusted. Medications addressed with nephrology. Patient doing well with carvedilol. At discharge patient will continue with carvedilol 12.5 mg 1 pill twice daily. Her other home medication of nifedipine 90 mg 1 pill twice daily, clonidine 0.2 mg 1 pill twice daily and ramipril 5 mg daily have been discontinued. Recommendation is to monitor blood pressure daily. Recommendation is to maintain blood pressures less 150/80. Further adjustment can be done by her PCP or nephrology. 4. Patient with CAD. Patient continue with Imdur 30 mg daily. 5. Patient has GERD. Patient will continue with Prilosec 20 mg daily. 6. Compliance with dialysis and medications addressed in detail. This has been an issue in the past as per Nephrology. Compliance will need to be enforced. Diet: Renal Activity: Fall precautions Time spent managing pt's care (in minutes): 55
[2018-01-10 15:33] VITALS: TEMP 97.4
--- NOTE | 2018-01-10 17:18 | CON ---
Date of Consultation: 01/10/2018 Reason For Consult: ESRD on dialysis. History Of Present Illness: Ms. Ochoa is a 57-year-old female with a history of he rohitannalee C, end-stage renal disease, on dialysis Monday, , and Monday, has been noncomplian t with dialysis treatments since a while. The patient presented to [facility] after she mis sed almost a week of dialysis complaining of shortness of breath and edema of lower extremity. She u nderwent emergent dialysis last night and other extra dialysis treatment today. The patient is havin g cramping during dialysis when seen on dialysis, but otherwise denies any other complaints. The pat ient was asked why she had been noncompliant with the treatments, she gave vague reasons such as she thought the dialysis unit was closed and they sent her away. Past Medical History: Significant for history of hypertension, COPD, history of CVA, hepatitis C, ES RD, anemia secondary to CKD, history of heart surgery with history of endocarditis, CHF, cholecystect cory, and . Social History: She lives by herself, and history of heavy drug abuse in the past. Family History: Noncontributory. Review of Systems: Positive for weakness, lethargy, nausea and vomiting and cramping during dialysis. Denies any shortn ess of breath at this time. All other review of systems are negative. Physical Examination: Vital Signs: At this time are showing temperature of 97.3, pulse rate of 55, respiratory rate of 18, and blood pressure 117/60. General: She appears in no acute distress. Lungs: Clear to auscultation. Heart: Auscultation of heart revealed regular rate and rhythm. Abdomen: Soft and nontender. Extremities: Without any evidence of edema. Laboratory Data: Has been reviewed. Her hemoglobin, hematocrit, and platelet count are stable and e lectrolytes seems to be improving today compared to yesterday after dialysis. Current Medications: Include Tylenol p.r.n., albuterol as needed, carvedilol, Pepcid, Lasix 40 mg a day, isosorbide, Renvela, Zoloft and Ambien p.r.n. Impression: 1.End-stage renal disease, on dialysis with noncompliance with dialysis treatment. The patient is o n Monday, , and Monday dialysis. She was encouraged compliance with treatment and the ris k of was discussed with the patient. The patient voiced understanding and reported that she wi ll try to have better compliance for treatments. The patient is getting extra dialysis treatment tod ay. Volume status seems to be better overall. She should be okay to be discharged with followup at dialysis unit tomorrow. 2.Chronic anemia secondary to renal insufficiency. The patient's hemoglobin is stable at this time. We will resume DENI once discharged from the hospital. 3.Hypertension, stable. 4.Volume overload, improving. 5.Noncompliance with history of drug abuse and hepatitis C. The patient will need long-term primary substance abuse counselor ing. We will discuss further with social work at the dialysis unit to improve compliance. Plan: Overall, the patient is doing okay. She is getting her dialysis treatment. Volume status imp roving. Okay to be discharged after dialysis with close followup as outpatient tomorrow for dialysis treatments. She was advised to call to make sure that the dialysis unit remains open, which it was never closed and she voiced understanding. RORO/ROBBIE Voice ID: [id number] Report ID: [id number]
[2018-01-10 17:50] VITALS: BP 139/50
== END 2018-01-10 21:00 | disposition home or self-care (01) ==
LOC: ER 08:49 → ERHOLD 11:17 → 4TH 11:51
PROVIDERS: ADMIT Family Medicine; ATTEND Family Medicine
PROC: 5A1D70Z Performance of Urinary Filtration, Intermittent, Less than 6 Hours Per Day (ICD-10-PCS; principal; 2018-01-10)
DX: I13.2 Hypertensive heart and chronic kidney disease with heart failure and with stage 5 chronic kidney disease, or end stage renal disease (principal); N18.6 End stage renal disease; I50.33 Acute on chronic diastolic (congestive) heart failure; Z99.2 Dependence on renal dialysis; Z91.15 Patient's noncompliance with renal dialysis; E87.5 Hyperkalemia; I27.20 Pulmonary hypertension, unspecified; I25.10 Atherosclerotic heart disease of native coronary artery without angina pectoris; K21.9 Gastro-esophageal reflux disease without esophagitis; D63.1 Anemia in chronic kidney disease; Z86.73 Personal history of transient ischemic attack (TIA), and cerebral infarction without residual deficits; Z86.19 Personal history of other infectious and parasitic diseases
CPT/HCPCS: 36415; 71045; 80048 ×2; 80061; 81003; 82962 ×7; 83735 ×2; 83880; 84439; 84443; 85025 ×2; 87086; 87088; 90935; 93005; 93306; 94640; 96365; 96375; 99285; G0257; G0378 ×2; J0610; J1644; J7605 ×2; Q4081; 81015

== ENCOUNTER 2018-01-24 12:48 | Observation (INO) | payer OTHER ==
--- OUTSIDE RECORDS SUMMARY | 2018-01-24 12:50 | XMS REPORT | Continuity of Care Document ---
:1960 Author Organization Interface Problems Problem Status Onset Classification Date Comments Source Date Reported NUMBNESS Active 01/09/[address] ISCHEMIC STROKE Active 01/09/[address] Methicillin Active 06/11/20 Problem 01/13/2017 Problem resistant 09 added by [facility] Staphylococcus Discern [facility] aureus<sup>2, Expert. 3</sup> Final: Cerebral 01/13/2017 infarction, [facility] unspecified [facility] Bipolar disorder Resolved Problem 01/13/2017 [facility] CKD (<span Resolved Problem 01/13/2017 ID="[id number]" [facility] >Confirmed</span> [facility] ) COPD (<span Resolved Problem 01/13/2017 ID="[id number]"> [facility] Confirmed</span>) [facility] CVA (<span Resolved Problem 01/13/2017 ID="[id number]" [facility] >Confirmed</span> [facility] ) Dialysis Resolved Problem 01/13/2017 started patient<sup>1</najera approx 2013 [facility] Problem 01/13/2017 disease [facility] Heart attack Resolved Problem 01/13/2017 [facility] Hepatitis C Resolved Problem 01/13/2017 [facility] HTN (<span Resolved Problem 01/13/2017 ID="[id number]"> [facility] Confirmed</span>) [facility] Simple obesity Active Problem 01/13/2017 [facility] Smoker Resolved Problem 01/13/2017 [facility] ILLNESS, Active UNSPECIFIED [facility] CEREBRAL Active INFARCTION, [facility] Medications Medication Details Route Status Patient Ordering Order Source Instructions Provider Date atorvastatin 10 mg, 1 tab, No Longer Route: PO, Drug Active 2016 [facility] form: TAB, [facility] Bedtime, Dosing Weight 76.007, kg, Start date: 01/09/17 21:00:00 CDT, Duration: 30 day, Stop date: 02/07/17 21:00:00 CDTNotes: (Same As: Lipitor) aspirin 81 mg 81 mg=1 tab, Active tablet, enteric PO, Daily, # 30 2016 [facility] coated tab, 0 [facility] Refill(s) atorvastatin 10 10 mg=1 tab, Active mg oral tablet PO, Bedtime, # 2017 [facility] 30 tab, 0 [facility] Refill(s) heparin 5,000 unit, 1 No Longer mL, Route: Active 2016 [facility] SUB-Q, Drug [facility] form: INJ, Q8H, Start date: 01/09/17 16:00:00 CDT, Duration: 30 day, Stop date: 02/08/17 8:00:00 CDTNotes: porcine heparin gabapentin 100 300 mg, 1 cap, No Longer MG Oral Capsule Route: PO, Drug Active 2016 [facility] form: CAP, City Bedtime, Dosing Weight 76.007, kg, Start date: 01/08/17 21:00:00 CDT, Duration: 30 day, Stop date: 02/06/17 21:00:00 CDTNotes: (Same as: Neurontin) Saline Flush 10 ml, Route: Inactive 0.9% IVP, Drug Form: 2016 [facility] INJ, Dosing [facility] Weight 76.007, kg, Q12H, Start date: 01/08/17 21:00:00 CDT, Duration: 30 day, Stop date: 02/07/17 9:00:00 CDT Hydroxyzine 50 mg, 2 tab, No Longer Route: PO, Drug Active 2016 [facility] form: TAB, TID, [facility] Dosing Weight 76.007, kg, Start date: 01/08/17 19:00:00 CDT, Duration: 30 day, Stop date: 02/07/17 17:00:00 CDTNotes: (Same as: Atarax) Avoid alcohol. ARIPiprazole 10 mg, 2 tab, No Longer Route: PO, Drug Active 2016 [facility] form: TAB, City Daily, Dosing Weight 76.007, kg, Start date: 01/08/17 19:00:00 CDT, Duration: 30 day, Stop date: 02/07/17 9:00:00 CDTNotes: Non-Formulary Drug. (Same as: Abilify) Amlodipine 10 mg, 2 tab, No Longer Route: PO, Drug Active [address] [place] [address] form: TAB, [facility] Daily, Dosing Weight 76.007, kg, Start date: 01/08/17 18:26:00 CDT, Duration: 30 day, Stop date: 02/07/17 9:00:00 CDTNotes: (Same as: Norvasc) Sertraline 50 mg, 1 tab, No Longer Route: PO, Drug Active 2016 [facility] form: TAB, [facility] Daily, Dosing Weight 76.007, kg, Start date: 01/08/17 18:25:00 CDT, Duration: 30 day, Stop date: 02/07/17 9:00:00 CDTNotes: (Same as: Zoloft) Clonidine 0.2 mg, 2 tab, No Longer Hydrochloride Route: PO, Drug Active 2016 [facility] 0[facility]2 MG Oral form: TAB, TID, [facility] Tablet Dosing Weight 76.007, kg, Start date: 01/08/17 18:24:00 CDT, Duration: 30 day, Stop date: 02/07/17 17:00:00 CDTNotes: (Same As: Catapres) 200 ACTUAT 2.49 mg, 3 mL, No Longer Albuterol 0.09 Route: NEB, Active 2016 [facility] MG/ACTUAT Drug Form: [facility] Metered Dose SOLN, Dosing Inhaler [ProAir Weight 76.007, HFA] kg, RQID, PRN Wheezing, Start date: 01/08/17 18:00:00 CDT, Duration: 30 day, Stop date: 02/07/17 17:59:00 CDTNotes: SEE RT DOCUMENTATION (Same as: Proventil) Hydralazine 10 mg, 0.5 mL, No Longer Route: IV, Drug Active 2016 [facility] form: INJ, Q4H, [facility] Dosing Weight 76.007, kg, PRN Elevated BP, Start date: 01/08/17 17:42:00 CDT, Duration: 30 day, Stop date: 02/07/17 17:41:00 CDTNotes: (Same as: Apresoline) Push over 5 minutes Clonidine 0.1 mg=0.5 tab, Active Hydrochloride PO, TID, 0 2016 [facility] 0.2 MG Oral Refill(s) [facility] Tablet ARIPiprazole 10 10 mg=1 tab, Active mg oral tablet PO, Daily, # 30 2016 [facility] tab, 0 [facility] Refill(s) Amlodipine 10 mg, PO, Active Daily, 0 2016 [facility] Refill(s) [facility] sertraline 50 50 mg=1 tab, Active mg oral tablet PO, Daily, 0 2016 [facility] Refill(s) [facility] gabapentin 100 300 mg=3 cap, Active MG Oral Capsule PO, Bedtime, 0 2016 [facility] Refill(s) [facility] Hydroxyzine 50 mg, PO, TID, Active 0 Refill(s) 2016 [facility] Enoxaparin 30 mg, 0.3 mL, No Longer Route: SUB-Q, Active 2016 [facility] Drug form: INJ, [facility] [id number], Dosing Weight 76.007, kg, Start date: 01/08/17 17:00:00 CDT, Stop date: 02/06/17 17:00:00 CDTNotes: (Same as: Lovenox) aspirin 81 mg 81 mg, 1 tab, No Longer tablet, enteric Route: PO, Drug Active 2016 [facility] coated form: ECTAB, [facility] Daily, Dosing Weight 76.007, kg, Start date: 01/08/17 16:49:00 CDT, Duration: 30 day, Stop date: 02/07/17 9:00:00 CDTNotes: Do not crush or chew. (Same As: Ecotrin) Famotidine 20 mg, 1 tab, No Longer Route: PO, Drug Active 2016 [facility] form: TAB, [facility] Q12H, Dosing Weight 76.007, kg, Start date: 01/08/17 16:49:00 CDT, Duration: 30 day, Stop date: 02/07/17 9:00:00 CDTNotes: (Same as: Pepcid) Sodium Chloride 25 mL, Route: No Longer 0.9% IV IVP, Start Active 2016 [facility] date: 01/08/17 [facility] 16:48:00 CDT, Duration: 30 day, Stop date: 02/07/17 16:47:00 CDT, PRN Line Flush BD Normal 10 mL, Route: No Longer Saline Flush IVP, Drug Form: Active 2016 [facility] INJ, PRN, PRN [facility] Line Flush, Start date: 01/08/17 16:48:00 CDT, Duration: 30 day, Stop date: 02/07/17 16:47:00 CDTNotes: (Same as: BD Posiflush) BD Normal 5 mL, Route: No Longer Saline Flush IVP, Drug Form: Active 2016 [facility] INJ, PRN, PRN [facility] Line Flush, Start date: 01/08/17 16:47:00 CDT, Duration: 30 day, Stop date: 02/07/17 16:46:00 CDTNotes: (Same as: BD Posiflush) Saline Flush 10 ml, Route: Inactive 0.9% IVP, Drug Form: 2016 [facility] INJ, Dosing City Weight 76.007, kg, PRN, PRN Line Flush, Start date: 01/08/17 16:41:00 CDT, Duration: 30 day, Stop date: 02/07/17 16:40:00 CDT Allergies, Adverse Reactions, Alerts Substance Category Reaction Severity Reaction Status Date Comments Source type Reported NKDA Assertion Drug Active allergy [facility] Immunizations Immunization Date Site Status Last Comments Source Given Updated pneumococcal Right completed Jimenez [facility] 13-valent vaccine 7 [facility] tetanus-diphtheri Right completed Katya [facility] a toxoids 9 [facility] Results Order Name Results Value Reference Date [...] is not recommended in the following populations: [address] Individuals with unstable creatinine concentrations, including [...] 3.84 mg/dL 0.50 - 01/10 Lvl 1.40 [facility] CHEM PANEL Calcium Lvl 8.3 mg/dL 8.5 - 10.5 01/10 [facility] CHEM PANEL AGAP 10.1 meq/L 10.0 - 01/10 MH 20.0 [facility] CHEM PANEL CO2 32 meq/L 24 - 32 01/10 [facility] CHEM PANEL Chloride Lvl 102 meq/L 95 - 109 01/10 [facility] CHEM PANEL Potassium 4.1 meq/L 3.5 - 5.1 01/10 Lvl [facility] CHEM PANEL Sodium Lvl 140 meq/L 135 - 145 01/10 [facility] CHEM PANEL BUN 9 mg/dL 7 - 22 01/10 [facility] CHEM PANEL Glucose Lvl 91 mg/dL 70 - 99 01/10 [facility] CHEM PANEL Phosphorus 2.6 mg/dL 2.5 - 4.5 01/10 [facility] IMMUNOLOGY Hep Bs Ag Negative Negative 01/09 [facility] (01/09/17 6:45 PM) DRUG SCREEN UDS Note See Note 01/08 [facility] (01/08/17 6:00 PM) DRUG SCREEN U Benzodia Negative Negative 01/08 [facility] (01/08/17 6:00 PM) DRUG SCREEN U Pinky Scr Negative Negative 01/08 [facility] (01/08/17 6:00 PM) DRUG SCREEN U Cocaine Negative Negative 01/08 [facility] (01/08/17 6:00 PM) DRUG SCREEN U Cannab Scr Negative Negative 01/08 [facility] (01/08/17 6:00 PM) DRUG SCREEN U Phencyc Negative Negative 01/08 [facility] (01/08/17 6:00 PM) DRUG SCREEN U Opiate Scr Negative Negative 01/08 [facility] (01/08/17 6:00 PM) DRUG SCREEN U Amph Scr Negative Negative 01/08 [facility] (01/08/17 6:00 PM) URINE AND UA <=1.0 0.1 - 1.0 01/08 STOOL Urobilinogen mg/dL /2016 [facility] URINE AND UA Ketones Negative 01/08 [facility] URINE AND UA Color Straw 01/08 [facility] URINE AND UA pH >=9.0 5.0 - 8.0 01/08 [facility] *ABN* [facility] (01/08/17 6:00 PM) URINE AND UA RBC null 0 - 2 01/08 [facility] URINE AND UA WBC 1 /HPF 0 - 5 01/08 [facility] URINE AND UA Glucose Negative Negative 01/08 STOOL mg/dL mg/dL [facility] URINE AND UA Spec Grav 1.004 <=1.030 01/08 [facility] URINE AND UA Nitrite Negative Negative 01/08 STOOL [facility] (01/08/17 6:00 PM) [facility] URINE AND UA Protein 30 mg/dL Negative 01/08 STOOL mg/dL [facility] URINE AND UA Turbidity Clear Clear 01/08 STOOL [facility] (01/08/17 6:00 PM) [facility] URINE AND UA Bili Negative Negative 01/08 [facility] *NA* [facility] (01/08/17 6:00 PM) URINE AND UA Blood Negative Negative 01/08 [facility] (01/08/17 6:00 PM) [facility] URINE AND UA Mucus Few /LPF None Seen 01/08 STOOL /LPF /2016 [facility] URINE AND UA Sq Epi Few /LPF Few /LPF 01/08 [facility] URINE AND UA Leuk Est Negative Negative 01/08 STOOL [facility] (01/08/17 6:00 PM) [facility] URINE AND UA Bacteria Occasional None Seen 01/08 STOOL /HPF /HPF /2016 [facility] HEMATOLOGY PTT 36.2 s 22.9 - 01/08 MH 35.8 /2016 [facility] HEMATOLOGY INR 1.05 0.85 - 01/08 1. [facility] HEMATOLOGY PT 13.9 s 12.0 - / MH 14.7 [facility] LIPIDS VLDL 22 01/08 [facility] LIPIDS LDL 50 mg/dL <=99 mg/dL 01/08 MH (Calculated) [facility] LIPIDS Chol 145 mg/dL <=199 01/08 mg/dL [facility] LIPIDS Trig 109 mg/dL <=149 01/08 mg/dL [facility] LIPIDS HDL 73 mg/dL >=61 mg/dL 01/08 [facility] LIPIDS CHD Risk 1.99 3.90 - 07 MH 5.80 /2016 [facility] SPECIAL Hgb A1C 4.6 % <=5.6 % 01/08 CHEMISTRY /2016 [facility] CHEM PANEL B/C Ratio 3 6 - 25 01/08 [facility] CHEM PANEL AGAP 14.4 meq/L 10.0 - 01/08 MH 20.0 [facility] CHEM PANEL Globulin 5.5 g/dL 2.7 - 4.2 01/08 [facility] CHEM PANEL A/G Ratio 0.6 0.7 - 1.6 01/08 [facility] CHEM PANEL eGFR 8 01/08 Result [...] is not recommended in the following populations: [address] Individuals with unstable creatinine concentrations, including [...] Lvl 85 mg/dL 70 - 99 01/08 [facility] CHEM PANEL CO2 26 meq/L 24 - 32 01/08 [facility] CHEM PANEL ALT 14 unit/L 0 - 65 01/08 [facility] CHEM PANEL Creatinine 6.23 mg/dL 0.50 - 01/08 Lvl 1.40 [facility] CHEM PANEL Albumin Lvl 3.3 g/dL 3.5 - 5.0 01/08 [facility] CHEM PANEL BUN 16 mg/dL 7 - 22 01/08 [facility] CHEM PANEL AST 24 unit/L 0 - 37 01/08 [facility] CHEM PANEL Bili Total 0.5 mg/dL 0.2 - 1.3 01/08 [facility] CHEM PANEL Total 8.8 g/dL 6.4 - 8.4 01/08 MH [facility] CHEM PANEL Alk Phos 215 unit/L 39 - 136 01/08 [facility] CHEM PANEL Chloride Lvl 101 meq/L 95 - 109 01/08 [facility] CHEM PANEL Potassium 5.4 meq/L 3.5 - 5.1 01/08 Lvl [facility] CHEM PANEL Calcium Lvl 9.1 mg/dL 8.5 - 10.5 01/08 [facility] CHEM PANEL Sodium Lvl 136 meq/L 135 - 145 01/08 [facility] CHEM PANEL Magnesium 2.4 mg/dL 1.8 - 2.4 01/08 Lvl [facility] HEMATOLOGY Hgb 10.5 g/dL 12.0 - 01/08 MH 16.0 [facility] HEMATOLOGY Hct 31.5 % 36.0 - 01/08 MH 48.0 [facility] HEMATOLOGY WBC 9.0 K/CMM 3.7 - 10.4 01/08 [facility] HEMATOLOGY RBC 3.70 M/CMM 4.20 - 01/08 MH 5.40 /2016 [facility] HEMATOLOGY MCV 85.3 fL 80.0 - 01/08 MH 98.0 [facility] HEMATOLOGY MCH 28.5 pg 27.0 - 01/08 MH 31.0 [facility] HEMATOLOGY MCHC 33.4 g/dL 32.0 - 01/08 MH 36.0 [facility] HEMATOLOGY RDW 12.9 % 11.5 - 07 MH 14.5 /2016 [facility] HEMATOLOGY Platelet 212 K/CMM 133 - 450 01/08 [facility] HEMATOLOGY MPV 9.0 fL 7.4 - 10.4 01/08 [facility] HEMATOLOGY Monocytes 12.8 % 2.0 - 12.0 01/08 [facility] HEMATOLOGY Segs 43.7 % 45.0 - 07 MH 75.0 [facility] HEMATOLOGY Lymphocytes 40.4 % 20.0 - 01/08 MH 40.0 [facility] HEMATOLOGY Segs-Bands # 4.0 K/CMM 1.5 - 8.1 01/08 [facility] HEMATOLOGY Eosinophils 1.9 % 0.0 - 4.0 01/08 [facility] HEMATOLOGY Monocytes # 1.2 K/CMM 0.0 - 0.8 01/08 [facility] HEMATOLOGY Lymphocytes 3.7 K/CMM 1.0 - 5.5 01/08 [facility] HEMATOLOGY Basophils 1.2 % 0.0 - 1.0 01/08 [facility] HEMATOLOGY Eosinophils 0.2 K/CMM 0.0 - 0.5 01/08 [facility] HEMATOLOGY Basophils # 0.1 K/CMM 0.0 - 0.2 01/08 [facility] Brain wo Brain wo Brain wo contrast MRI 01/08/2017 4:41 PM CDT 01/08 - contrast contrast MRI /2016 - [facility] [place] 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[facility], [place]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 [...] Comments Source Systolic (mm Hg) 128 01/10/2017 [facility] Diastolic (mm Hg) 72 01/10/2017 [facility] Respitory Rate 14 01/10/2017 [facility] Systolic (mm Hg) 100 01/10/2017 [facility] Diastolic (mm Hg) 72 01/10/2017 [facility] Respitory Rate 24 01/10/2017 [facility] Systolic (mm Hg) 118 01/10/2017 [facility] Diastolic (mm Hg) 60 01/10/2017 [facility] Respitory Rate 19 01/10/2017 [facility] BMI Calculated 32.73 01/08/2017 [facility] Weight 76.007 01/08/2017 [facility] Height 152.4 cm 01/08/2017 [facility] Encounters Location Location Encounter Encounter Reason Attending ADM DC Status Source Details Type Number For Provider Date Date Visit [facility] [id number] Tom 01/09 01/10 Cullen Muir /2016 [facility] Procedures Procedure Code Date Perfomer Comments Source section [id number] [facility] Cholecystectomy [id number] [facility]
--- OUTSIDE RECORDS SUMMARY | 2018-01-24 12:50 | XMS REPORT | Clinical Summary ---
:1960 Author Organization [facility] Address [address] [place] [address] Phone Care Team Providers Name Role Phone [...] INFLUENZA VACCINE 04/02/2018 Implants Implanted Type Area Leasing Specialist Device Expiration Model / Identifier Date Serial / Lot Grft Hemshld Dbl Jarrod 2.0x6.0in [id number] - [id number] Graft/Pat GETINGE 01/30/2019 [id number] / Implanted: Qty: 1 on 01/25/2016 by Sherif Bañuelos MD IND: KWADWOT:CV / [id number] Results Not on fileafter 01/23/2017
--- NOTE | 2018-01-24 13:39 | RAD REPORT ---
EXAM DESCRIPTION: RAD - Chest Single View - 01/24/2018 1:14 pm CLINICAL HISTORY: DYSPNEA Chest pain. COMPARISON: Chest Single View dated 01/09/2018; Chest Single View dated 11/22/2017; Chest Single View dated 11/20/2017; Chest Single View dated 05/06/2017 FINDINGS: Portable technique limits examination quality. Moderate bilateral pulmonary opacities are present with small pleural effusions. The heart is moderat felisa enlarged in size. Sternotomy wires are present. IMPRESSION: Moderate CHF/ volume overload pattern.
[2018-01-24 13:46] LABS: Absolute Lymphocytes (CBC) 1.3 K/uL (0.7-4.9); Absolute Monocytes 0.5 K/uL (0.1-1.3); Absolute Neutrophil 2.9 K/uL (1.8-8.0); Eosinophils % 1.8 % (0-4.4); Hematocrit 35.6 % (36.0-45.0); Lymphocytes % 26.6 % (15.3-44.8); MCH 28.2 pg (27.0-35.0); MPV 8.9 fL (7.6-11.3); Monocytes % 10.1 % (3.3-12.3)
[2018-01-24 13:47] LABS: Protime INR 1.16
--- NOTE | 2018-01-24 14:16 | EKG ---
Test Date: 2018-01-24 Test Time: 12:54:17 Vamp Cut Out Worker: MEASUREMENT RESULTS: Intervals: Rate: 55 OR: 162 QRSD: 74 QT: 536 QTc: 512 [place]: P: 39 OR: 162 QRS: 46 T: 147 INTERPRETIVE STATEMENTS: Sinus bradycardia with sinus arrhythmia Anterior infarct, age undetermined T wave abnormality, consider lateral ischemia Prolonged QT Abnormal ECG Compared to ECG 01/09/2018 08:57:52 Prolonged QT interval now present Electronically Signed On 01-24-18 14:15:40 CDT by Prashanth Casanova
[2018-01-24 14:42] LABS: Albumin 3.3 g/dL (3.4-5.0); Bilirubin Direct 0.2 mg/dL (0-0.2); Bilirubin Total 0.5 mg/dL (0.2-1.0); CKMB Creatine Kinase MB 2.7 ng/mL (0.3-3.6); Magnesium 2.3 mg/dL (1.8-2.4); Protein, Total 7.3 g/dL (6.4-8.2)
[2018-01-24 14:44] LABS: Potassium 5.8 mmol/L (3.5-5.1)
--- NOTE | 2018-01-24 14:50 | ER ---
Nurse's Notes [facility] Name: Michelle Ochoa Age: 57 yrs Sex: Female : 1960 Arrival Date: 01/24/2018 Time: 12:49 Bed 7 Private MD: Diagnosis: Acute systolic (congestive) heart failure;Hyperkalemia;Chronic kidney disease (CKD) Presentation: 01/24 12:53 Presenting complaint: EMS states: was unable to go to dialysis appointment yesterday sg d/t issues with transportation, this morning felt general weakness and shortness of breath at rest, with chest congestion non productive "wet" sounding cough. Transition of care: patient was not received from another setting of care. Onset of symptoms was January 24, 2018. Risk Assessment: Do you want to hurt yourself or someone else? Patient reports no desire to harm self or others. Initial Sepsis Screen: Does the patient meet any 2 criteria? RR > 20 per min. No. Patient's initial sepsis screen is negative. Does the patient have a suspected source of infection? No. Patient's initial sepsis screen is negative. Care prior to arrival: None. 12:53 Method Of Arrival: EMS: [facility] sg 12:53 Acuity: ZAID 3 sg Historical: - Allergies: 12:53 No Known Allergies; sg - PMHx: 12:53 Anemia; CVA; Dialysis- T//Mon; ENDOCARDITIS; Hypertension; kidney failure; PATRICK; Renal sg Disease; - PSHx: 12:53 ; Cholecystectomy; YOLANDA fistula; sg - Immunization history:: Adult Immunizations up to date. - Social history:: Smoking status: Patient/guardian denies using tobacco. - Ebola Screening: : Patient negative for fever greater than or equal to 101.5 degrees Fahrenheit, and additional compatible Ebola Virus Disease symptoms Patient denies exposure to infectious person Patient denies travel to an Ebola-affected area in the 21 days before illness onset No symptoms or risks identified at this time. Screenin:55 Abuse screen: Denies threats or abuse. Denies injuries from another. Nutritional sg screening: No deficits noted. Tuberculosis screening: No symptoms or risk factors identified. Never had TB. Fall Risk None identified. Assessment: 12:55 General: Appears in no apparent distress. comfortable, well groomed, well developed, sg well nourished, Behavior is calm, cooperative, appropriate for age. Pain: Denies pain. Neuro: Level of Consciousness is alert, obeys commands, drowsy. Oriented to person, place, situation, Moves all extremities. Speech is normal, Facial symmetry appears normal, reports general weakness for one day. Cardiovascular: Heart tones S1 S2 present Capillary refill is brisk in bilateral fingers Patient's skin is warm and dry. Chest pain is denied. Respiratory: Airway is patent Respiratory effort is even, labored, Respiratory pattern is symmetrical, tachypnea Breath sounds are coarse bilaterally. Breath sounds with crackles bilaterally. GI: Abdomen is round non-distended, Bowel sounds present X 4 quads. Reports diarrhea, tolerance of fluids, tolerance of food. : No signs and/or symptoms were reported regarding the genitourinary system. EENT: No signs and/or symptoms were reported regarding the EENT system. Derm: Skin is pink, warm \\T\\ dry. Musculoskeletal: No signs and/or symptoms reported regarding the musculoskeletal system. 14:00 Reassessment: Patient appears in no apparent distress at this time. Patient and/or sg family updated on plan of care and expected duration. Pain level reassessed. Patient is alert, oriented x 3, equal unlabored respirations, skin warm/dry/pink. reports feeling "sleepy". pt has been sleeping in exam room on stretcher with bed in low and locked position, srx2 and call light within reach, the pt awakens easily to verbal stimuli, will continue to monitor Patient states symptoms have not improved. 15:55 Reassessment: Patient appears in no apparent distress at this time. Patient and/or sg family updated on plan of care and expected duration. Pain level reassessed. Patient is alert, oriented x 3, equal unlabored respirations, skin warm/dry/pink. instructed to please hold the PO kayexelate until determined if pt will be dialyzed today d/t the effects of the medication per Mando BERNAL. Reassessment:. 16:59 Reassessment: Patient appears in no apparent distress at this time. Patient and/or sg family updated on plan of care and expected duration. Pain level reassessed. Patient is alert, oriented x 3, equal unlabored respirations, skin warm/dry/pink. pt informed report to be called at this time, pt stated understanding, report called to Lucia HAYS. Vital Signs: 12:50 BP 124 / 69; Pulse 52 MON; Resp 22 S; Temp 97.9; Pulse Ox 97% on R/A; Pain 0/10; sg 15:19 BP 149 / 77; Pulse 61; Resp 20; Pulse Ox 97% on R/A; jb1 17:00 BP 142 / 72; Pulse 49 MON; Resp 19; Pulse Ox 97% on R/A; Pain 0/10; sg ED Course: 12:49 Patient arrived in ED. sg 12:49 Mando Krueger PA is PHCP. jr8 12:49 Duong Vasquez MD is Attending Physician. jr8 12:50 Arm band placed on. sg 12:55 Triage completed. sg 12:55 Patient has correct armband on for positive identification. Bed in low position. Call sg light in reach. Side rails up X2. child monitor on. Pulse ox on. NIBP on. Warm blanket given. Head of bed elevated. 13:10 Vickey Lau RN is Primary Nurse. sg 13:12 X-ray completed. Portable x-ray completed in exam room. Patient tolerated procedure ml well. 13:14 XRAY Chest (1 view) In Process Unspecified. EDMS 13:20 Initial lab(s) drawn, by me, sent to lab. Missed attempt(s): 22 gauge in right wrist. sg antecubital area. Bleeding controlled, band aid applied, catheter tip intact. 13:22 EKG done, by salvage engineering technician. reviewed by Mando BERNAL. at1 14:00 Missed attempt(s): 22 gauge in right antecubital area. Bleeding controlled, band aid aa5 applied, catheter tip intact. 14:05 Missed attempt(s): 24 gauge in right hand. Bleeding controlled, band aid applied, aa5 catheter tip intact. 14:08 Missed attempt(s): 24 gauge in right wrist. Bleeding controlled, band aid applied, aa5 catheter tip intact. 14:16 Missed attempt(s): 24 gauge in right hand. Bleeding controlled, band aid applied, sv catheter tip intact. 14:20 Inserted saline lock: 24 gauge in right wrist, using aseptic technique. Flushed right sv with 5 ml normal saline wrist. 14:49 Nicholas Morris DO is Hospitalizing Provider. jr8 Administered Medications: 15:20 Drug: Insulin Regular Human 10 units {Co-Signature: aa5 (Brenda Giles RN).} Route: sg IVP; Site: right wrist; 15:20 Drug: Albuterol 2.5 mg Route: Inhalation; sg 15:30 Drug: Albuterol 2.5 mg Route: Inhalation; sg 15:37 Drug: D50W 50 ml Route: IVP; Site: right wrist; sg 15:37 Drug: Calcium Gluconate 1 grams Route: IVPB; Infused Over: 60 mins; Site: right wrist; sg 16:10 Follow up: Response: No adverse reaction; IV Status: Completed infusion sg 15:40 Drug: Lasix 40 mg Route: IVP; Site: right wrist; sg 15:55 Drug: Albuterol 2.5 mg Route: Inhalation; sg 17:23 Not Given (Physician Discretion; Per Mando BERNAL): Kayexalate 30 grams PO once sg Outcome: 14:50 Decision to Hospitalize by Provider. jr8 17:25 Patient left the ED. sg Signatures: Dispatcher [employer] EDMS Daniel Fisher jbElsy Muhammad, RN SAÚL Vickey Lau RN RN sg Lopez, Melissa ml Calderon, Audri, RN RN aa5 Mando Krueger PA PA jr8 Cherri kaufman, manifest/order organizer print orders EKG Tat1 Brenda diaz5
--- NOTE | 2018-01-24 14:51 | EDPHYS ---
Physician Documentation [facility] Name: Michelle Ochoa Age: 57 yrs Sex: Female : 1960 Arrival Date: 01/24/2018 Time: 12:49 Bed 7 Private MD: ED Physician Duong Vasquez HPI: 01/24 13:03 This 57 yrs old Black Female presents to ER via EMS with complaints of General Weakness.jr8 13:03 Onset: The symptoms/episode began/occurred gradually, 2 day(s) ago. Severity of jr8 symptoms: At their worst the symptoms were mild in the emergency department the symptoms are unchanged. The patient has not experienced similar symptoms in the past. The patient has not recently seen a physician. Patient stated that she feels generally weak. Missed dialysis yesterday because of her ride not coming. Has not had dialysis since this past Monday. Denies Chest pain. Has shortness of breath but stated that it does not feel any different then what she normally has. Historical: - Allergies: 12:53 No Known Allergies; sg - PMHx: 12:53 Anemia; CVA; Dialysis- T/Th/Sat; ENDOCARDITIS; Hypertension; kidney failure; PATRICK; Renal sg Disease; - PSHx: 12:53 ; Cholecystectomy; YOLANDA fistula; sg - Immunization history:: Adult Immunizations up to date. - Social history:: Smoking status: Patient/guardian denies using tobacco. - Ebola Screening: : Patient negative for fever greater than or equal to 101.5 degrees Fahrenheit, and additional compatible Ebola Virus Disease symptoms Patient denies exposure to infectious person Patient denies travel to an Ebola-affected area in the 21 days before illness onset No symptoms or risks identified at this time. ROS: 13:03 Eyes: Negative for injury, pain, redness, and discharge, ENT: Negative for injury, jr8 pain, and discharge, Neck: Negative for injury, pain, and swelling, Cardiovascular: Negative for chest pain, palpitations, and edema, Abdomen/GI: Negative for abdominal pain, nausea, vomiting, diarrhea, and constipation, Back: Negative for injury and pain, MS/Extremity: Negative for injury and deformity, Skin: Negative for injury, rash, and discoloration, Neuro: Negative for headache, weakness, numbness, tingling, and seizure. 13:03 Constitutional: Positive for fatigue, malaise. 13:03 Respiratory: Positive for shortness of breath. Exam: 13:03 Eyes: Pupils equal round and reactive to light, extra-ocular motions intact. Lids and jr8 lashes normal. Conjunctiva and sclera are non-icteric and not injected. Cornea within normal limits. Periorbital areas with no swelling, redness, or edema. ENT: Nares patent. No nasal discharge, no septal abnormalities noted. Tympanic membranes are normal and external auditory canals are clear. Oropharynx with no redness, swelling, or masses, exudates, or evidence of obstruction, uvula midline. Mucous membranes moist. Neck: Trachea midline, no thyromegaly or masses palpated, and no cervical lymphadenopathy. Supple, full range of motion without nuchal rigidity, or vertebral point tenderness. No Meningismus. Cardiovascular: Regular rate and rhythm with a normal S1 and S2. No gallops, murmurs, or rubs. Normal PMI, no JVD. No pulse deficits. Abdomen/GI: Soft, non-tender, with normal bowel sounds. No distension or tympany. No guarding or rebound. No evidence of tenderness throughout. Back: No spinal tenderness. No costovertebral tenderness. Full range of motion. Skin: Warm, dry with normal turgor. Normal color with no rashes, no lesions, and no evidence of cellulitis. MS/ Extremity: Pulses equal, no cyanosis. Neurovascular intact. Full, normal range of motion. Neuro: Awake and alert, GCS 15, oriented to person, place, time, and situation. Cranial nerves II-XII grossly intact. Motor strength 5/5 in all extremities. Sensory grossly intact. Cerebellar exam normal. Normal gait. 13:03 Constitutional: The patient appears alert, awake, non-toxic. 13:03 Respiratory: the patient does not display signs of respiratory distress, Respirations: tachypnea, Breath sounds: rales, that are moderate, are heard diffusely. 13:14 ECG was reviewed by the Attending Physician. [facility] Vital Signs: 12:50 BP 124 / 69; Pulse 52 MON; Resp 22 S; Temp 97.9; Pulse Ox 97% on R/A; Pain 0/10; sg 15:19 BP 149 / 77; Pulse 61; Resp 20; Pulse Ox 97% on R/A; jb1 17:00 BP 142 / 72; Pulse 49 MON; Resp 19; Pulse Ox 97% on R/A; Pain 0/10; sg MDM: 12:49 Patient medically screened. [facility] 14:49 Data reviewed: vital signs, nurses notes, lab test result(s), EKG, radiologic studies, jr8 plain films. Data interpreted: Pulse oximetry: on room air is 97 %. Interpretation: normal. Counseling: I had a detailed discussion with the patient and/or guardian regarding: the historical points, exam findings, and any diagnostic results supporting the discharge/admit diagnosis, lab results, radiology results, the need for further work-up and treatment in the hospital. 14:52 ED course: Dr. Estevez consulted and is going to set up for patient to have emergent jr8 dialysis in hospital . 01/24 12:50 Order name: Basic Metabolic Panel; Complete Time: 14:45 01/24 12:50 Order name: CBC with Diff; Complete Time: 14:34 01/24 12:50 Order name: Ckmb; Complete Time: 14:45 01/24 12:50 Order name: LFT's; Complete Time: 14:45 01/24 12:50 Order name: Magnesium; Complete Time: 14:45 01/24 12:50 Order name: NT PRO-BNP; Complete Time: 14:45 01/24 12:50 Order name: PT-INR; Complete Time: 14:34 01/24 12:50 Order name: Troponin (emerg Dept Use Only); Complete Time: 14:04 01/24 12:50 Order name: XRAY Chest (1 view); Complete Time: 13:51 01/24 12:50 Order name: EKG; Complete Time: 12:51 01/24 12:50 Order name: Cardiac monitoring; Complete Time: 14:20 01/24 12:50 Order name: EKG - Nurse/Tech; Complete Time: 14:20 01/24 12:50 Order name: IV Saline Lock; Complete Time: 14:20 01/24 12:50 Order name: Labs collected and sent; Complete Time: 14:20 01/24 12:50 Order name: O2 Per Protocol; Complete Time: 14:20 01/24 12:50 Order name: O2 Sat Monitoring; Complete Time: 14:21 [facility] 01/24 12:50 Order name: Urine Dipstick-Ancillary (obtain specimen) [facility] 01/24 15:18 Order name: CONS Physician Consult [facility] 01/24 15:22 Order name: CONS Physician Consult [facility] 01/24 15:22 Order name: Social Service Consult [facility] 01/24 15:22 Order name: Renal [facility] 01/24 15:51 Order name: Diet Renal; Complete Time: 15:52 ae1 EC:14 Rate is 55 beats/min. Rhythm is regular, Sinus bradycardia. QRS [place] is Normal. [place] jr8 interval is normal at 162 msec. QRS interval is normal at 74 msec. QT interval is prolonged at 512 msec. Q waves are Present in leads V1, V2, V3. T waves are Flattened. No ST changes noted. Clinical impression: Abnormal EKG without significant change. Interpreted by me. Reviewed by me. Administered Medications: 15:20 Drug: Insulin Regular Human 10 units {Co-Signature: aa5 (Brenda Giles RN).} Route: sg IVP; Site: right wrist; 15:20 Drug: Albuterol 2.5 mg Route: Inhalation; sg 15:30 Drug: Albuterol 2.5 mg Route: Inhalation; sg 15:37 Drug: D50W 50 ml Route: IVP; Site: right wrist; sg 15:37 Drug: Calcium Gluconate 1 grams Route: IVPB; Infused Over: 60 mins; Site: right wrist; sg 16:10 Follow up: Response: No adverse reaction; IV Status: Completed infusion sg 15:40 Drug: Lasix 40 mg Route: IVP; Site: right wrist; sg 15:55 Drug: Albuterol 2.5 mg Route: Inhalation; sg 17:23 Not Given (Physician Discretion; Per Mando BERNAL): Kayexalate 30 grams PO once sg Disposition: 18:04 Co-signature as Attending Physician, Duong Vasquez MD. rn Disposition: 01/24/18 14:50 Hospitalization ordered by Nicholas Morris for Observation. Preliminary diagnosis are Acute systolic (congestive) heart failure, Hyperkalemia, Chronic kidney disease (CKD). - Bed requested for Telemetry/MedSurg (observation). - Status is Observation. sg - Condition is Fair. - Problem is new. - Symptoms have improved. UTI on Admission? No Signatures: Dispatcher [employer] EDMS Brittnee Luciano Vickey Fragoso RN RN sg Duong Vasquez MD MD rn Roszak, Josh, PA PA jr8 Brenda Giles RN aa5 Corrections: (The following items were deleted from the chart) 13:07 13:03 Eyes: Negative for injury, pain, redness, and discharge, ENT: Negative for jr8 injury, pain, and discharge, Neck: Negative for injury, pain, and swelling, Cardiovascular: Negative for chest pain, palpitations, and edema, Abdomen/GI: Negative for abdominal pain, nausea, vomiting, diarrhea, and constipation, Back: Negative for injury and pain, MS/Extremity: Negative for injury and deformity, Skin: Negative for injury, rash, and discoloration, jr8 15:14 14:50 Hospitalization Ordered by Nicholas Morris DO for Inpatient Admission. Preliminary jr8 diagnosis is Acute systolic (congestive) heart failure; Hyperkalemia; Chronic kidney disease (CKD). Bed requested for Telemetry/MedSurg (Inpatient). Status is Inpatient Admission. Condition is Fair. Problem is new. Symptoms have improved. UTI on Admission? No. jr8 16:40 15:14 01/24/2018 14:50 Hospitalization Ordered by Nicholas Morris DO for Observation. bd Preliminary diagnosis is Acute systolic (congestive) heart failure; Hyperkalemia; Chronic kidney disease (CKD). Bed requested for Telemetry/MedSurg (observation). Status is Observation. Condition is Fair. Problem is new. Symptoms have improved. UTI on Admission? No. jr8 17:25 16:40 01/24/2018 14:50 Hospitalization Ordered by Nicholas Morris DO for Observation. sg Preliminary diagnosis is Acute systolic (congestive) heart failure; Hyperkalemia; Chronic kidney disease (CKD). Bed requested for Telemetry/MedSurg (observation). Status is Observation. Condition is Fair. Problem is new. Symptoms have improved. UTI on Admission? No. bd
[2018-01-24] MEDS ORDERED: INSULIN -REGULAR HUMAN 50 UNIT/0.5 ML ML ONE (14:59)
[2018-01-24] MEDS ORDERED: SOD POLYSTYREN SUL 15 GM/60 ML UCUP ONE (15:00)
[2018-01-24] MEDS ORDERED: D50W 25 GM/50 ML SYRINGE IV ONE (15:00)
[2018-01-24] MEDS ORDERED: FUROSEMIDE 40 MG/4 ML VIAL ONE (15:00)
[2018-01-24] MEDS ORDERED: ALBUTEROL 2.5 MG/3 ML NEB SOL ONE (15:00)
[2018-01-24] MEDS ORDERED: IPRATROPIUM BROM 0.5MG/2.5ML NEB PRN (15:14)
[2018-01-24] MEDS ORDERED: ALBUTEROL 2.5 MG/3 ML NEB SOL NEB PRN (15:14)
[2018-01-24] MEDS ORDERED: ACETAMINOPHEN 500 MG TAB PO PRN (15:14)
[2018-01-24] MEDS ORDERED: ONDANSETRON 4 MG/2 ML VIAL IV PRN (15:14)
--- NOTE | 2018-01-24 15:27 | P.HP ---
Certification for Inpatient Patient admitted to: Observation With expected LOS: <2 Midnights Patient will require the following post-hospital care: Other Practitioner: I am a practitioner with admitting privileges, knowledge of patient current condition, hospital course, and medical plan of care. Services: Services provided to patient in accordance with Admission requirements found in Title 42 Section 412.3 of the Code of Federal Regulations Patient History Date of Service: 01/24/18 Primary Care Provider: none; Nephrology-Dr. Estevez Reason for admission: Shortness of breath History of Present Illness: 57-year-old female presented emergency room with shortness of breath. Patient reports shortness of breath over the last several days. Patient has a history of hypertension, tobacco abuse, pulmonary hypertension, end-stage renal disease with noncompliance. Patient reports her last dialysis on Monday. She reports that her transportation did not pick her up on Monday. Therefore increasing shortness of breath was noted. She denied any chest pain, headaches or dizziness. She was brought in to the emergency room for further evaluation. In the emergency room blood pressures remain stable. Chest x-ray showed volume overload. Potassium 5.8, BUN of 77, creatinine 12.5 with a [place] 4[place] [address]. Patient was admitted for acute dialysis. When I saw the patient the ER, medications and previous history reviewed. Patient had been non compliant in the past and has a history of noncompliance. Her last hospitalization occurred July 12 and for noncompliance with dialysis. Allergies No Known Allergies Allergy (Verified 01/09/18 16:24) Home medications list reviewed: Yes Home Medications: Omeprazole 1 cap PO DAILY 01/05/16 hydrOXYzine pamoate [Hydroxyzine Pamoate] 1 cap PO TID PRN 01/05/16 Carvedilol [Coreg*] 12.5 mg PO BID #60 tab 05/08/17 Furosemide 1 tab PO DAILY 11/21/17 Isosorbide Mononitrate [Isosorbide Mononitrate ER] 30 mg PO DAILY 11/21/17 Trazodone [Desyrel*] 50 mg PO DAILY PRN 11/21/17 - Past Medical/Surgical History Diabetic: No -: Pulmonary hypertension -: COPD -: History of CVA -: Hepatitis-C -: ESRD, dialysis Tuesdays, and Saturdays -: Anemia of chronic disease -: History of heart surgery -: CHF -: Non compliance -: YOLANDA fistula -: -: Cholecystectomy Psychosocial/ Personal History: Patient lives by herself. She is . She has 2 children. - Family History Mother -: Heart disease - Social History Smoking Status: Heavy Tobacco smoker (>10 cigarettes/day) Counseled patient to stop smoking for: less than 10 minutes Smoking therapy provided: Yes Patient receptive to therapy: Yes Alcohol use: No CD- Drugs: No Caffeine use: Yes Place of Residence: Home Review of Systems General: Weakness, As per HPI Eyes: Unremarkable ENT: Unremarkable Respiratory: Shortness of Breath, As per HPI Cardiovascular: Unremarkable Gastrointestinal: Unremarkable Genitourinary: Unremarkable Musculoskeletal: Unremarkable Integumentary: Unremarkable Neurological: Unremarkable Lymphatics: Unremarkable Physical Examination - Physical Exam General: Alert, In no apparent distress, Oriented x3, Cooperative HEENT: Atraumatic, Normocephalic, Mucous membr. moist/pink Neck: Supple, No Thyromegaly Respiratory: Diminished (Bilateral), Crackles/rales (Bilateral) Cardiovascular: Normal pulses, Regular rate/rhythm Gastrointestinal: Normal bowel sounds, Soft and benign, Non-distended, No tenderness, No masses, No rebound, No guarding Musculoskeletal: No erythema, No tenderness, No warmth Integumentary: No tenderness/swelling, No erythema, No warmth, No cyanosis Neurological: Normal speech, Normal strength at 5/5 x4 extr, Normal tone, Normal affect - Studies Laboratory Data (last 24 hrs) 01/24/18 13:20: PT 13.7 H, INR 1.16 01/24/18 13:20: WBC 4.8, Hgb 11.3 L, Hct 35.6 L, Plt Count 185 01/24/18 13:20: Sodium 139, Potassium 5.8 H*, BUN 77 H, Creatinine 12.50 H*, Glucose 134 H, Magnesium 2.3, Total Bilirubin 0.5, AST 14 L, ALT 12, Alkaline Phosphatase 122 H Assessment and Plan - Problems (Diagnosis) (1) Congestive heart failure Onset Date: 01/10/18 Current Visit: No Status: Acute Plan: Patient with poor compliance with dialysis. She reports that her transportation did not pick her up for Monday. Patient will need acute dialysis. The ER physician spoke to nephrology to set this up. Patient to be admitted for dialysis. Will have social media marketing analyst address compliance and make sure transportation is not an issue in the future. Will address compliance in detail with the patient Qualifiers: Heart failure type: diastolic Heart failure chronicity: acute on chronic Qualified Code(s): I50.33 - Acute on chronic diastolic (congestive) heart failure (2) Dyspnea Onset Date: 01/10/18 Current Visit: No Status: Acute Plan: Secondary to CHF/pulmonary edema. Patient will be admitted for dialysis. Compliance will be addressed in detail. Qualifiers: (3) Hyperkalemia Onset Date: 05/08/17 Current Visit: No Status: Acute Plan: Patient will receive dialysis. (4) Volume overload Onset Date: 05/08/17 Current Visit: No Status: Acute Plan: Secondary to pulmonary edema/CHF. Continue as above. Qualifiers: (5) Anemia Onset Date: 01/06/16 Current Visit: No Status: Chronic Plan: Overall stable. Will monitor closely. Qualifiers: Anemia type: due to chronic kidney disease Chronic kidney disease stage: on chronic dialysis Qualified Code(s): N18.6 - End stage renal disease; D63.1 - Anemia in chronic kidney disease; Z99.2 - Dependence on renal dialysis (6) ESRD (end stage renal disease) on dialysis Onset Date: 01/06/16 Current Visit: No Status: Chronic Plan: Patient with history of noncompliance. Will address compliance in detail. Will have social media marketing analyst see if there has been an issue with transportation recently to confirm her report. Patient to receive dialysis due to hyperkalemia and volume overload. (7) Noncompliance Onset Date: 01/10/18 Current Visit: No Status: Chronic Plan: Continue as above. (8) Tobacco abuse Current Visit: Yes Status: Chronic Plan: Will address tobacco cessation. (9) COPD (chronic obstructive pulmonary disease) Current Visit: Yes Status: Suspected Plan: Patient may have underlying COPD due to her history of tobacco abuse. Will provide medication as needed Qualifiers: COPD type: chronic bronchitis Chronic bronchitis type: unspecified Qualified Code(s): J42 - Unspecified chronic bronchitis Discharge Plan: Home Plan to discharge in: 24 Hours - Advance Directives Does patient have a Living Will: No Does patient have a Durable POA for Healthcare: No - Code Status/Comfort Care Code Status Assessed: Yes Time Spent Managing Pts Care (In Minutes): 55
[2018-01-24] MEDS ORDERED: FUROSEMIDE 20 MG/ 2ML VIAL ONE (15:51)
[2018-01-24] MEDS ORDERED: CALCIUM GLUCONATE 1gm/100 ML NS (4.65 mEq/100mL) IV ONE ×2 (16:00)
[2018-01-24] MEDS: ENOXAPARIN 30 MG/0.3 ML SQ SCH (23:13)
[2018-01-24] MEDS: CARVEDILOL 12.5 MG TAB PO SCH (23:19)
[2018-01-25] MEDS: CARVEDILOL 12.5 MG TAB PO SCH ×2 (05:31→18:00)
[2018-01-25] MEDS: PANTOPRAZOLE 40MG TABLET PO SCH ×2 (05:32→08:52)
[2018-01-25 06:12] VITALS: BMI 4293.9
[2018-01-25 06:29] LABS: Absolute Lymphocytes (CBC) 1.5 K/uL (0.7-4.9); Absolute Monocytes 0.6 K/uL (0.1-1.3); Absolute Neutrophil 1.9 K/uL (1.8-8.0); Basophils % 1.3 % (0-1.3); Eosinophils % 2.6 % (0-4.4); Hematocrit 32.6 % (36.0-45.0); MCH 28.7 pg (27.0-35.0); MCV 87.4 fL (80-100); MPV 8.7 fL (7.6-11.3); Monocytes % 14.9 % (3.3-12.3); RBC Red Blood Cell Count 3.73 M/uL (3.86-4.86)
[2018-01-25 07:04] LABS: Magnesium 2.2 mg/dL (1.8-2.4); Potassium 4.7 mmol/L (3.5-5.1)
[2018-01-25 08:08] VITALS: O2SAT 96
--- NOTE | 2018-01-25 08:26 | RAD REPORT ---
EXAM DESCRIPTION: RAD - Chest Pa And Lat (2 Views) - 01/25/2018 6:28 am CLINICAL HISTORY: follow up Pulmonary edema/CHF Chest pain. COMPARISON: Chest Single View dated 01/24/2018; Chest Single View dated 01/09/2018; Chest Single View dated 11/22/2017; Chest Single View dated 11/20/2017Chest Single View dated 01/24/2018; Chest Single Vie w dated 01/09/2018; Chest Single View dated 11/22/2017; Chest Single View dated 11/20/2017; Chest Single View dated 05/06/2017 FINDINGS: Mild improvement pulmonary edema is noted since the comparative study. Small pleural effus ions persists however also improved. The heart is mildly prominent size. No displaced fractures. Ster notomy wires present. IMPRESSION: Mild improvement in CHF pattern since comparative study.
[2018-01-25] MEDS: ENOXAPARIN 30 MG/0.3 ML SQ SCH (08:51)
[2018-01-25] MEDS ORDERED: FUROSEMIDE 40 MG TABLET PO SCH (09:00)
[2018-01-25] MEDS ORDERED: ISOSORBIDE MONO SR 30 MG TAB PO SCH (09:00)
[2018-01-25 09:10] VITALS: TEMP 97
--- NOTE | 2018-01-25 13:22 | P.DS ---
Admission Date: 01/24/18 Discharge Date: 01/25/18 Primary Care Provider: none; Nephrology-Dr. Estevez Disposition: ROUTINE DISCHARGE Discharge Condition: GOOD Reason for Admission: Shortness of breath Consultations: Nephrology-Dr. Estevez - Problems (1) Congestive heart failure Onset Date: 01/10/18 Current Visit: No Status: Acute Qualifiers: Heart failure type: diastolic Heart failure chronicity: acute on chronic Qualified Code(s): I50.33 - Acute on chronic diastolic (congestive) heart failure (2) Dyspnea Onset Date: 01/10/18 Current Visit: No Status: Acute Qualifiers: (3) Hyperkalemia Onset Date: 05/08/17 Current Visit: No Status: Acute (4) Volume overload Onset Date: 05/08/17 Current Visit: No Status: Acute Qualifiers: (5) Anemia Onset Date: 01/06/16 Current Visit: No Status: Chronic Qualifiers: Anemia type: due to chronic kidney disease Chronic kidney disease stage: on chronic dialysis Qualified Code(s): N18.6 - End stage renal disease; D63.1 - Anemia in chronic kidney disease; Z99.2 - Dependence on renal dialysis (6) ESRD (end stage renal disease) on dialysis Onset Date: 01/06/16 Current Visit: No Status: Chronic (7) Noncompliance Onset Date: 01/10/18 Current Visit: No Status: Chronic (8) Tobacco abuse Onset Date: 01/25/18 Current Visit: Yes Status: Chronic (9) COPD (chronic obstructive pulmonary disease) Onset Date: 01/25/18 Current Visit: Yes Status: Suspected Qualifiers: COPD type: chronic bronchitis Chronic bronchitis type: unspecified Qualified Code(s): J42 - Unspecified chronic bronchitis Brief History of Present Illness: 57-year-old female presented emergency room with shortness of breath. Patient reports shortness of breath over the last several days. Patient has a history of hypertension, tobacco abuse, pulmonary hypertension, end-stage renal disease with noncompliance. Patient reports her last dialysis on Monday. She reports that her transportation did not pick her up on Monday. Therefore increasing shortness of breath was noted. She denied any chest pain, headaches or dizziness. She was brought in to the emergency room for further evaluation. In the emergency room blood pressures remain stable. Chest x-ray showed volume overload. Potassium 5.8, BUN of 77, creatinine 12.5 with a G[place] 4[place] [address]. Patient was admitted for acute dialysis. When I saw the patient the ER, medications and previous history reviewed. Patient had been non compliant in the past and has a history of noncompliance. Her last hospitalization occurred July 12 and for noncompliance with dialysis. Hospital Course: Patient presented with shortness of breath secondary to CHF and volume overload. This is likely related to noncompliance with dialysis. Patient has end-stage renal disease on dialysis. Patient received dialysis times 2 in the hospital. Patient has been non compliant in the past. She reports this time that her transport did not pick her up. The way the transportation works is that they arrive at the home. It is the responsibility of the patient to go outside to be transported. This was addressed in detail with the patient. Patient will need to be more compliant with her dialysis. She will continue with Dialysis every Monday, and Monday. She will follow up with Nephrology in 1 week. At discharge she will continue with a 1500 cc per day fluid restriction. Patient will continue with Lasix 40 mg 1 pill once daily. Patient has transportation to dialysis. She will need to comply with transportation. Patient has HTN. She will continue with medication-Coreg 12.5 mg 1 pill twice daily. Recommendation is to maintain blood pressures less 150/80. Further adjustment can be done by her PCP. If her blood pressure is less than 120 systolic she is to hold her blood pressure medication. Previous medications of clonidine and ramipril has been discontinued. Patient has CAD. Patient continue with Imdur 30 mg 1 pill once daily. Patient likely has underlying COPD with previous history of tobacco abuse. Patient will be sent home with Advair 250 mcg 1 puff twice daily and Pro air 2 puffs 3 times a day as needed for shortness of breath. Vital Signs/Physical Exam: Temp Pulse Resp BP Pulse Ox 97.0 F 48 L 18 93/51 L 100 01/25/18 12:01/25/18 12:01/25/18 12:01/25/18 12:01/25/18 12:00 General: Alert HEENT: Atraumatic, Normocephalic Neck: Supple Respiratory: Expiratory wheezes Cardiovascular: Normal pulses, Regular rate/rhythm Gastrointestinal: Normal bowel sounds, Soft and benign, Non-distended, No tenderness, No masses, No rebound, No guarding Musculoskeletal: No erythema, No tenderness, No warmth Integumentary: No tenderness/swelling, No erythema, No warmth, No cyanosis Neurological: Normal speech, Normal strength at 5/5 x4 extr, Normal tone, Normal affect Laboratory Data at Discharge: WBC 4.3 K/uL (4.3-10.9) 01/25/18 06:05 Hgb 10.7 g/dL (12.0-15.0) L 01/25/18 06:05 Hct 32.6 % (36.0-45.0) L 01/25/18 06:05 Plt Count 167 K/uL (152-406) 01/25/18 06:05 PT 13.7 SECONDS (9.5-12.5) H 01/24/18 13:20 INR 1.16 01/24/18 13:20 Sodium 141 mmol/L (136-145) 01/25/18 06:05 Potassium 4.7 mmol/L (3.5-5.1) 01/25/18 06:05 BUN 35 mg/dL (7-18) H D 01/25/18 06:05 Creatinine 7.30 mg/dL (0.55-1.3) H* D 01/25/18 06:05 Glucose 99 mg/dL (74-106) 01/25/18 06:05 Magnesium 2.2 mg/dL (1.8-2.4) 01/25/18 06:05 Total Bilirubin 0.5 mg/dL (0.2-1.0) 01/24/18 13:20 AST 14 U/L (15-37) L 01/24/18 13:20 ALT 12 U/L (12-78) 01/24/18 13:20 Alkaline Phosphatase 122 U/L (45-117) H 01/24/18 13:20 Home Medications: Carvedilol [Coreg*] 12.5 mg PO BID #60 tab 05/08/17 Furosemide 1 tab PO DAILY 11/21/17 Isosorbide Mononitrate [Isosorbide Mononitrate ER] 30 mg PO DAILY 11/21/17 Trazodone [Desyrel*] 50 mg PO BEDTIME 11/21/17 Albuterol Sulfate [Proair Hfa] 8.5 gm IH TID PRN #1 hfa.aer.ad 01/25/18 Fluticasone/Salmeterol [Advair 250-50 Diskus] 1 each IH BID #1 blst.w.dev New Medications: Albuterol Sulfate [Proair Hfa] 8.5 gm IH TID PRN #1 hfa.aer.ad PRN Reason: Shortness Of Breath Fluticasone/Salmeterol [Advair 250-50 Diskus] 1 each IH BID #1 blst.w.dev Patient Discharge Instructions: 1. Patient will need to follow up with a PCP to establish care. 2. Patient presented with shortness of breath secondary to CHF and volume overload. This is likely related to noncompliance with dialysis. Patient has end-stage renal disease on dialysis. Patient recieved dialysis times 2 in the hospital. Patient will need to be more compliant with her dialysis. She will continue with Dialysis every Monday, and Monday. She will follow up with Nephrology in 1 week. At discharge she will continue with a 1500 cc per day fluid restriction. Patient will continue with Lasix 40 mg 1 pill once daily. Patient has transportation to dialysis. She will need to comply with transportation. 3. Patient has HTN. She will continue with medication-Coreg 12.5 mg 1 pill twice daily. Recommendation is to maintain blood pressures less 150/80. Further adjustment can be done by her PCP. If her blood pressure is less than 120 systolic she is to hold her blood pressure medication. Previous medications of clonidine and ramipril has been discontinued. 4. Patient has CAD. Patient continue with Imdur 30 mg 1 pill once daily. 5. Patient likely has underlying COPD with previous history of tobacco abuse. Patient will be sent home with Advair 250 mcg 1 puff twice daily and Pro air 2 puffs 3 times a day as needed for shortness of breath.. Diet: Renal Activity: Fall precautions Time spent managing pt's care (in minutes): 55
[2018-01-25 20:12] VITALS: BP 140/75
--- NOTE | 2018-01-26 19:34 | P.CNS ---
Date of Consult: 01/25/18 Reason for Consult: ESRD Requesting Physician: Nicholas Morris Primary Care Provider: none; Nephrology-Dr. Estevez Chief Complaint: Shortness of breath History of Present Illness: 57-year-old female presented emergency room with shortness of breath. Patient reports shortness of breath over the last several days. Patient has a history of hypertension, tobacco abuse, pulmonary hypertension, end-stage renal disease with noncompliance. Patient reports her last dialysis on Monday. She reports that her transportation did not pick her up on Monday. Therefore increasing shortness of breath was noted. She denied any chest pain, headaches or dizziness. She was brought in to the emergency room for further evaluation. 13:03 This 57 yrs old Black Female presents to ER via EMS with complaints of General Weakness.jr8 13:03 Onset: The symptoms/episode began/occurred gradually, 2 day(s) ago. Severity of jr8 symptoms: At their worst the symptoms were mild in the emergency department the symptoms are unchanged. The patient has not experienced similar symptoms in the past. The patient has not recently seen a physician. Patient stated that she feels generally weak. Missed dialysis yesterday because of her ride not coming. Has not had dialysis since this past Monday. Denies Chest pain. Has shortness of breath but stated that it does not feel any different then what she normally has. Allergies No Known Allergies Allergy (Verified 01/09/18 16:24) Home medications list reviewed: Yes Home Medications: Carvedilol [Coreg*] 12.5 mg PO BID #60 tab 05/08/17 Furosemide 1 tab PO DAILY 11/21/17 Isosorbide Mononitrate [Isosorbide Mononitrate ER] 30 mg PO DAILY 11/21/17 Trazodone [Desyrel*] 50 mg PO BEDTIME 11/21/17 Albuterol Sulfate [Proair Hfa] 8.5 gm IH TID PRN #1 hfa.aer.ad 01/25/18 Fluticasone/Salmeterol [Advair 250-50 Diskus] 1 each IH BID #1 blst.w.dev - Past Medical/Surgical History Diabetic: No -: Pulmonary hypertension -: COPD -: History of CVA -: Hepatitis-C -: ESRD, dialysis Tuesdays, and Saturdays -: Anemia of chronic disease -: History of heart surgery -: CHF -: Non compliance -: YOLANDA fistula -: -: Cholecystectomy Psychosocial/ Personal History: Patient lives by herself. She is . She has 2 children. - Family History Mother Medical History: Heart disease - Social History Smoking Status: Current every day smoker Alcohol use: No CD- Drugs: No Caffeine use: No Place of Residence: Home Review of Systems 10-point ROS is otherwise unremarkable General: Weakness, Malaise Physical Examination Temp Pulse Resp BP Pulse Ox 97.0 F 56 18 140/75 96 01/25/18 20:00 01/25/18 20:00 01/25/18 20:00 01/25/18 20:00 01/25/18 20:00 General: Alert, Oriented x3 HEENT: Atraumatic, Mucous membr. moist/pink Neck: Supple Respiratory: Clear to auscultation bilaterally, Normal air movement Cardiovascular: No edema, Regular rate/rhythm, No rubs Gastrointestinal: Soft and benign, Non-distended, No guarding Musculoskeletal: No clubbing, No contractures Integumentary: No rashes, No cyanosis Neurological: Normal speech Hgb 10.7 Blood work reviewed in the chart. Imagings Data: EXAM DESCRIPTION: RAD - Chest Single View - 01/24/2018 1:14 pm CLINICAL HISTORY: DYSPNEA Chest pain. COMPARISON: Chest Single View dated 01/09/2018; Chest Single View dated 2017; Chest Single View dated 11/20/2017; Chest Single View dated 05/06/2017 FINDINGS: Portable technique limits examination quality. Moderate bilateral pulmonary opacities are present with small pleural effusions. The heart is moderately enlarged in size. Sternotomy wires are present. IMPRESSION: Moderate CHF/ volume overload pattern. Conclusions/Impression: A/ ESRD on HD. HTN with CKD. Diastolic CHF, A/C. Anemia in CKD. Hyperkalemia. HILARIO/ Secondary HyperPTH. P/ Continue current POC and Medications. Arrange for acute HD. Give Epo. Restart home medications as indicated. No NSAIDs. Low sodium diet. AM labs. Daily weight. Thank you kindly for the consultation.
== END 2018-01-25 20:00 | disposition home or self-care (01) ==
LOC: ER 12:48 → ERHOLD 15:16 → 4TH 17:21
PROVIDERS: ADMIT Family Medicine; ATTEND Family Medicine
PROC: 5A1D70Z Performance of Urinary Filtration, Intermittent, Less than 6 Hours Per Day (ICD-10-PCS; principal; 2018-01-24)
PROC: 5A1D70Z Performance of Urinary Filtration, Intermittent, Less than 6 Hours Per Day (ICD-10-PCS; 2018-01-24)
DX: I13.2 Hypertensive heart and chronic kidney disease with heart failure and with stage 5 chronic kidney disease, or end stage renal disease (principal); N18.6 End stage renal disease; I50.33 Acute on chronic diastolic (congestive) heart failure; Z99.2 Dependence on renal dialysis; Z91.15 Patient's noncompliance with renal dialysis; F17.210 Nicotine dependence, cigarettes, uncomplicated; Z86.73 Personal history of transient ischemic attack (TIA), and cerebral infarction without residual deficits; D63.1 Anemia in chronic kidney disease; E87.5 Hyperkalemia; J44.9 Chronic obstructive pulmonary disease, unspecified; I25.10 Atherosclerotic heart disease of native coronary artery without angina pectoris; Z95.1 Presence of aortocoronary bypass graft
CPT/HCPCS: 36415; 71045; 71046; 80048 ×2; 80076; 82553; 82962 ×2; 83735 ×2; 83880; 84484; 85025 ×2; 85610; 90935; 93005; 96365; 96375; 99285; G0378 ×2; J0610; J1650 ×2; J1940

== ENCOUNTER 2018-02-05 00:30 | Observation (INO) | payer OTHER ==
--- OUTSIDE RECORDS SUMMARY | 2018-02-05 01:14 | XMS REPORT | Clinical Summary ---
:1960 Author Organization [facility] Address [address] [place] [address] Phone Care Team Providers Name Role Phone [...] intravenously daily. acetaminophen Take 650 mg by mouth Active (TYLENOL) 325 MG every 4 (four) hours tablet as needed for Pain. LORazepam (ATIVAN) 1 Take 1 mg by mouth Active MG tablet every 6 (six) hours as needed for Anxiety. cloNIDine HCl Take 0.1 mg by mouth Active (CATAPRES) 0.1 MG every 8 (eight) tablet hours as needed (bp>180/105). acetaminophen-codein Take 1 tablet by Active e (TYLENOL #3) mouth every 4 (four) 300-30 mg per tablet hours as needed for Pain. Active Problems Problem Noted Date Atrial myxoma [...] INFLUENZA VACCINE 04/02/2018 Implants Implanted Type Area Binding Dyer Device Expiration Model / Identifier Date Serial / Lot Grft Hemshld Dbl Jarrod 2.0x6.0in [id number] - [id number] Graft/Pat GETINGE 01/30/2019 [id number] / Implanted: Qty: 1 on 01/25/2016 by Sherif Bañuelos MD IND: OSBALDO:CV / [id number] Results Not on fileafter 02/04/2017
--- OUTSIDE RECORDS SUMMARY | 2018-02-05 01:15 | XMS REPORT | Continuity of Care Document ---
:1960 Author Organization Interface Problems Problem Status Onset Classification Date Comments Source Date Reported NUMBNESS Active 01/09/[address] ISCHEMIC STROKE Active 01/09/[address] Methicillin Active 06/11/20 Problem 01/13/2017 Problem resistant 09 added by [facility] Staphylococcus Discern [facility] aureus<sup>2, Expert. 3</sup> Final: Cerebral 01/13/2017 infarction, [facility] unspecified [facility] Bipolar disorder Resolved Problem 01/13/[address] [facility] CKD (<span Resolved Problem 01/13/2017 ID="[id number]" [facility] >Confirmed</span> [facility] ) COPD (<span Resolved Problem 01/13/2017 ID="[id number]"> [facility] Confirmed</span>) [facility] CVA (<span Resolved Problem 01/13/2017 ID="[id number]" [facility] >Confirmed</span> [facility] ) Dialysis Resolved Problem 01/13/2017 started patient<sup>1</najera approx 2013 [facility] 01/13/2017 disease [facility] Heart attack Resolved Problem 01/13/[address] [facility] Hepatitis C Resolved Problem 01/13/[address] [facility] HTN (<span Resolved Problem 01/13/2017 ID="[id number]"> [facility] Confirmed</span>) [facility] Simple obesity Active Problem 01/13/[address] [facility] Smoker Resolved Problem 01/13/[address] [facility] ILLNESS, Active UNSPECIFIED [facility] CEREBRAL Active INFARCTION, [facility] Medications Medication Details Route Status Patient Ordering Order Source Instructions Provider Date atorvastatin 10 mg, 1 tab, No Longer Route: PO, Drug Active 2016 [facility] form: TAB, [facility] Bedtime, Dosing Weight 76.007, kg, Start date: 01/09/17 21:00:00 CDT, Duration: 30 day, Stop date: 02/07/17 21:00:00 CDTNotes: (Same As: Lipitor) aspirin 81 mg 81 mg=1 tab, Active tablet, enteric PO, Daily, # 30 2016 [facility] coated tab, 0 [facility] Refill(s) atorvastatin 10 10 mg=1 tab, Active mg oral tablet PO, Bedtime, # 2017 [facility] 30 tab, 0 [facility] Refill(s) heparin 5,000 unit, 1 No Longer mL, Route: Active 2016 [facility] SUB-Q, Drug [facility] form: INJ, Q8H, Start date: 01/09/17 16:00:00 CDT, Duration: 30 day, Stop date: 02/08/17 8:00:00 CDTNotes: porcine heparin gabapentin 100 300 mg, 1 cap, No Longer MG Oral Capsule Route: PO, Drug Active 2016 [facility] form: CAP, City Bedtime, Dosing Weight 76.007, kg, Start date: 01/08/17 21:00:00 CDT, Duration: 30 day, Stop date: 02/06/17 21:00:00 CDTNotes: (Same as: Neurontin) Saline Flush 10 ml, Route: Inactive 0.9% IVP, Drug Form: 2016 [facility] INJ, Dosing [facility] Weight 76.007, kg, Q12H, Start date: 01/08/17 21:00:00 CDT, Duration: 30 day, Stop date: 02/07/17 9:00:00 CDT Hydroxyzine 50 mg, 2 tab, No Longer Route: PO, Drug Active 2016 [facility] form: TAB, TID, [facility] Dosing Weight 76.007, kg, Start date: 01/08/17 19:00:00 CDT, Duration: 30 day, Stop date: 02/07/17 17:00:00 CDTNotes: (Same as: Atarax) Avoid alcohol. ARIPiprazole 10 mg, 2 tab, No Longer Route: PO, Drug Active 2016 [facility] form: TAB, City Daily, Dosing Weight 76.007, kg, Start date: 01/08/17 19:00:00 CDT, Duration: 30 day, Stop date: 02/07/17 9:00:00 CDTNotes: Non-Formulary Drug. (Same as: Abilify) Amlodipine 10 mg, 2 tab, No Longer Route: PO, Drug Active [address] [place] [address] form: TAB, [facility] Daily, Dosing Weight 76.007, kg, Start date: 01/08/17 18:26:00 CDT, Duration: 30 day, Stop date: 02/07/17 9:00:00 CDTNotes: (Same as: Norvasc) Sertraline 50 mg, 1 tab, No Longer Route: PO, Drug Active 2016 [facility] form: TAB, [facility] Daily, Dosing Weight 76.007, kg, Start date: 01/08/17 18:25:00 CDT, Duration: 30 day, Stop date: 02/07/17 9:00:00 CDTNotes: (Same as: Zoloft) Clonidine 0.2 mg, 2 tab, No Longer Hydrochloride Route: PO, Drug Active 2016 [facility] 0[facility]2 MG Oral form: TAB, TID, [facility] Tablet Dosing Weight 76.007, kg, Start date: 01/08/17 18:24:00 CDT, Duration: 30 day, Stop date: 02/07/17 17:00:00 CDTNotes: (Same As: Catapres) 200 ACTUAT 2.49 mg, 3 mL, No Longer Albuterol 0.09 Route: NEB, Active 2016 [facility] MG/ACTUAT Drug Form: [facility] Metered Dose SOLN, Dosing Inhaler [ProAir Weight 76.007, HFA] kg, RQID, PRN Wheezing, Start date: 01/08/17 18:00:00 CDT, Duration: 30 day, Stop date: 02/07/17 17:59:00 CDTNotes: SEE RT DOCUMENTATION (Same as: Proventil) Hydralazine 10 mg, 0.5 mL, No Longer Route: IV, Drug Active 2016 [facility] form: INJ, Q4H, [facility] Dosing Weight 76.007, kg, PRN Elevated BP, Start date: 01/08/17 17:42:00 CDT, Duration: 30 day, Stop date: 02/07/17 17:41:00 CDTNotes: (Same as: Apresoline) Push over 5 minutes Clonidine 0.1 mg=0.5 tab, Active Hydrochloride PO, TID, 0 2016 [facility] 0.2 MG Oral Refill(s) [facility] Tablet ARIPiprazole 10 10 mg=1 tab, Active mg oral tablet PO, Daily, # 30 2016 [facility] tab, 0 [facility] Refill(s) Amlodipine 10 mg, PO, Active Daily, 0 2016 [facility] Refill(s) [facility] sertraline 50 50 mg=1 tab, Active mg oral tablet PO, Daily, 0 2016 [facility] Refill(s) [facility] gabapentin 100 300 mg=3 cap, Active MG Oral Capsule PO, Bedtime, 0 2016 [facility] Refill(s) [facility] Hydroxyzine 50 mg, PO, TID, Active 0 Refill(s) 2016 [facility] Enoxaparin 30 mg, 0.3 mL, No Longer Route: SUB-Q, Active 2016 [facility] Drug form: INJ, [facility] [id number], Dosing Weight 76.007, kg, Start date: 01/08/17 17:00:00 CDT, Stop date: 02/06/17 17:00:00 CDTNotes: (Same as: Lovenox) aspirin 81 mg 81 mg, 1 tab, No Longer tablet, enteric Route: PO, Drug Active 2016 [facility] coated form: ECTAB, [facility] Daily, Dosing Weight 76.007, kg, Start date: 01/08/17 16:49:00 CDT, Duration: 30 day, Stop date: 02/07/17 9:00:00 CDTNotes: Do not crush or chew. (Same As: Ecotrin) Famotidine 20 mg, 1 tab, No Longer Route: PO, Drug Active 2016 [facility] form: TAB, [facility] Q12H, Dosing Weight 76.007, kg, Start date: 01/08/17 16:49:00 CDT, Duration: 30 day, Stop date: 02/07/17 9:00:00 CDTNotes: (Same as: Pepcid) Sodium Chloride 25 mL, Route: No Longer 0.9% IV IVP, Start Active 2016 [facility] date: 01/08/17 [facility] 16:48:00 CDT, Duration: 30 day, Stop date: 02/07/17 16:47:00 CDT, PRN Line Flush BD Normal 10 mL, Route: No Longer Saline Flush IVP, Drug Form: Active 2016 [facility] INJ, PRN, PRN [facility] Line Flush, Start date: 01/08/17 16:48:00 CDT, Duration: 30 day, Stop date: 02/07/17 16:47:00 CDTNotes: (Same as: BD Posiflush) BD Normal 5 mL, Route: No Longer Saline Flush IVP, Drug Form: Active 2016 [facility] INJ, PRN, PRN [facility] Line Flush, Start date: 01/08/17 16:47:00 CDT, Duration: 30 day, Stop date: 02/07/17 16:46:00 CDTNotes: (Same as: BD Posiflush) Saline Flush 10 ml, Route: Inactive 0.9% IVP, Drug Form: 2016 [facility] INJ, Dosing City Weight 76.007, kg, PRN, PRN Line Flush, Start date: 01/08/17 16:41:00 CDT, Duration: 30 day, Stop date: 02/07/17 16:40:00 CDT Allergies, Adverse Reactions, Alerts Substance Category Reaction Severity Reaction Status Date Comments Source type Reported NKDA Assertion Drug Active allergy [facility] Immunizations Immunization Date Site Status Last Comments Source Given Updated pneumococcal Right completed Jimenez [facility] 13-valent vaccine 7 [facility] tetanus-diphtheri Right completed Katya [facility] a toxoids 9 [facility] Results Order Name Results Value Reference Date [...] is not recommended in the following populations: [address] Individuals with unstable creatinine concentrations, including [...] 3.84 mg/dL 0.50 - 01/10 Lvl 1.40 [facility] CHEM PANEL Calcium Lvl 8.3 mg/dL 8.5 - 10.5 01/10 [facility] CHEM PANEL AGAP 10.1 meq/L 10.0 - 01/10 MH 20.0 [facility] CHEM PANEL CO2 32 meq/L 24 - 32 01/10 [facility] CHEM PANEL Chloride Lvl 102 meq/L 95 - 109 01/10 [facility] CHEM PANEL Potassium 4.1 meq/L 3.5 - 5.1 01/10 Lvl [facility] CHEM PANEL Sodium Lvl 140 meq/L 135 - 145 01/10 [facility] CHEM PANEL BUN 9 mg/dL 7 - 22 01/10 [facility] CHEM PANEL Glucose Lvl 91 mg/dL 70 - 99 01/10 [facility] CHEM PANEL Phosphorus 2.6 mg/dL 2.5 - 4.5 01/10 [facility] IMMUNOLOGY Hep Bs Ag Negative Negative 01/09 [facility] (01/09/17 6:45 PM) DRUG SCREEN UDS Note See Note 01/08 [facility] (01/08/17 6:00 PM) DRUG SCREEN U Benzodia Negative Negative 01/08 [facility] (01/08/17 6:00 PM) DRUG SCREEN U Pniky Scr Negative Negative 01/08 [facility] (01/08/17 6:00 PM) DRUG SCREEN U Cocaine Negative Negative 01/08 [facility] (01/08/17 6:00 PM) DRUG SCREEN U Cannab Scr Negative Negative 01/08 [facility] (01/08/17 6:00 PM) DRUG SCREEN U Phencyc Negative Negative 01/08 [facility] (01/08/17 6:00 PM) DRUG SCREEN U Opiate Scr Negative Negative 01/08 [facility] (01/08/17 6:00 PM) DRUG SCREEN U Amph Scr Negative Negative 01/08 [facility] (01/08/17 6:00 PM) URINE AND UA <=1.0 0.1 - 1.0 01/08 STOOL Urobilinogen mg/dL /2016 [facility] URINE AND UA Ketones Negative 01/08 [facility] URINE AND UA Color Straw 01/08 [facility] URINE AND UA pH >=9.0 5.0 - 8.0 01/08 [facility] *ABN* [facility] (01/08/17 6:00 PM) URINE AND UA RBC null 0 - 2 01/08 [facility] URINE AND UA WBC 1 /HPF 0 - 5 01/08 [facility] URINE AND UA Glucose Negative Negative 01/08 STOOL mg/dL mg/dL [facility] URINE AND UA Spec Grav 1.004 <=1.030 01/08 [facility] URINE AND UA Nitrite Negative Negative 01/08 STOOL [facility] (01/08/17 6:00 PM) [facility] URINE AND UA Protein 30 mg/dL Negative 01/08 STOOL mg/dL [facility] URINE AND UA Turbidity Clear Clear 01/08 STOOL [facility] (01/08/17 6:00 PM) [facility] URINE AND UA Bili Negative Negative 01/08 [facility] *NA* [facility] (01/08/17 6:00 PM) URINE AND UA Blood Negative Negative 01/08 [facility] (01/08/17 6:00 PM) [facility] URINE AND UA Mucus Few /LPF None Seen 01/08 STOOL /LPF /2016 [facility] URINE AND UA Sq Epi Few /LPF Few /LPF 01/08 [facility] URINE AND UA Leuk Est Negative Negative 01/08 STOOL [facility] (01/08/17 6:00 PM) [facility] URINE AND UA Bacteria Occasional None Seen 01/08 STOOL /HPF /HPF /2016 [facility] HEMATOLOGY PTT 36.2 s 22.9 - 01/08 MH 35.8 /2016 [facility] HEMATOLOGY INR 1.05 0.85 - 01/08 1. [facility] HEMATOLOGY PT 13.9 s 12.0 - / MH 14.7 [facility] LIPIDS VLDL 22 01/08 [facility] LIPIDS LDL 50 mg/dL <=99 mg/dL 01/08 MH (Calculated) [facility] LIPIDS Chol 145 mg/dL <=199 01/08 mg/dL [facility] LIPIDS Trig 109 mg/dL <=149 01/08 mg/dL [facility] LIPIDS HDL 73 mg/dL >=61 mg/dL 01/08 [facility] LIPIDS CHD Risk 1.99 3.90 - 07 MH 5.80 /2016 [facility] SPECIAL Hgb A1C 4.6 % <=5.6 % 01/08 CHEMISTRY /2016 [facility] CHEM PANEL B/C Ratio 3 6 - 25 01/08 [facility] CHEM PANEL AGAP 14.4 meq/L 10.0 - 01/08 MH 20.0 [facility] CHEM PANEL Globulin 5.5 g/dL 2.7 - 4.2 01/08 [facility] CHEM PANEL A/G Ratio 0.6 0.7 - 1.6 01/08 [facility] CHEM PANEL eGFR 8 01/08 Result Comment: [...] is not recommended in the following populations: [address] Individuals with unstable creatinine concentrations, including [...] Lvl 85 mg/dL 70 - 99 01/08 [facility] CHEM PANEL CO2 26 meq/L 24 - 32 01/08 [facility] CHEM PANEL ALT 14 unit/L 0 - 65 01/08 [facility] CHEM PANEL Creatinine 6.23 mg/dL 0.50 - 01/08 Lvl 1.40 [facility] CHEM PANEL Albumin Lvl 3.3 g/dL 3.5 - 5.0 01/08 [facility] CHEM PANEL BUN 16 mg/dL 7 - 22 01/08 [facility] CHEM PANEL AST 24 unit/L 0 - 37 01/08 [facility] CHEM PANEL Bili Total 0.5 mg/dL 0.2 - 1.3 01/08 [facility] CHEM PANEL Total 8.8 g/dL 6.4 - 8.4 01/08 MH [facility] CHEM PANEL Alk Phos 215 unit/L 39 - 136 01/08 [facility] CHEM PANEL Chloride Lvl 101 meq/L 95 - 109 01/08 [facility] CHEM PANEL Potassium 5.4 meq/L 3.5 - 5.1 01/08 Lvl [facility] CHEM PANEL Calcium Lvl 9.1 mg/dL 8.5 - 10.5 01/08 [facility] CHEM PANEL Sodium Lvl 136 meq/L 135 - 145 01/08 [facility] CHEM PANEL Magnesium 2.4 mg/dL 1.8 - 2.4 01/08 Lvl [facility] HEMATOLOGY Hgb 10.5 g/dL 12.0 - 01/08 MH 16.0 [facility] HEMATOLOGY Hct 31.5 % 36.0 - 01/08 MH 48.0 [facility] HEMATOLOGY WBC 9.0 K/CMM 3.7 - 10.4 01/08 [facility] HEMATOLOGY RBC 3.70 M/CMM 4.20 - 01/08 MH 5.40 /2016 [facility] HEMATOLOGY MCV 85.3 fL 80.0 - 01/08 MH 98.0 [facility] HEMATOLOGY MCH 28.5 pg 27.0 - 01/08 MH 31.0 [facility] HEMATOLOGY MCHC 33.4 g/dL 32.0 - 01/08 MH 36.0 [facility] HEMATOLOGY RDW 12.9 % 11.5 - 07 MH 14.5 /2016 [facility] HEMATOLOGY Platelet 212 K/CMM 133 - 450 01/08 [facility] HEMATOLOGY MPV 9.0 fL 7.4 - 10.4 01/08 [facility] HEMATOLOGY Monocytes 12.8 % 2.0 - 12.0 01/08 [facility] HEMATOLOGY Segs 43.7 % 45.0 - 07 MH 75.0 [facility] HEMATOLOGY Lymphocytes 40.4 % 20.0 - 01/08 MH 40.0 [facility] HEMATOLOGY Segs-Bands # 4.0 K/CMM 1.5 - 8.1 01/08 [facility] HEMATOLOGY Eosinophils 1.9 % 0.0 - 4.0 01/08 [facility] HEMATOLOGY Monocytes # 1.2 K/CMM 0.0 - 0.8 01/08 [facility] HEMATOLOGY Lymphocytes 3.7 K/CMM 1.0 - 5.5 01/08 [facility] HEMATOLOGY Basophils 1.2 % 0.0 - 1.0 01/08 [facility] HEMATOLOGY Eosinophils 0.2 K/CMM 0.0 - 0.5 01/08 [facility] HEMATOLOGY Basophils # 0.1 K/CMM 0.0 - 0.2 01/08 [facility] Brain wo Brain wo Brain wo contrast MRI 01/08/2017 4:41 PM CDT 01/08 - contrast contrast MRI /2016 - [facility] 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 Diastolic (mm Hg) 72 01/10/[address] [facility] Respitory Rate 14 01/10/[address] [facility] Systolic (mm Hg) 100 01/10/[address] [facility] Diastolic (mm Hg) 72 01/10/[address] [facility] Respitory Rate 24 01/10/[address] [facility] Systolic (mm Hg) 118 01/10/[address] [facility] Diastolic (mm Hg) 60 01/10/[address] [facility] Respitory Rate 19 01/10/[address] [facility] BMI Calculated 32.73 01/08/[address] [facility] Weight 76.007 01/08/[address] [facility] Height 152.4 cm 01/08/[address] [facility] Encounters Location Location Encounter Encounter Reason Attending ADM DC Status Source Details Type Number For Provider Date Date Visit [facility]ation [id number] Tom 01/09 01/10 Cullen Muir /2016 [facility] Hospital Procedures Procedure Code Date Perfomer Comments Source section [id number] [facility] Cholecystectomy [id number] [facility]
[2018-02-05] MEDS ORDERED: ACETAMINOPHEN 500 MG TAB PO PRN (01:31)
[2018-02-05] MEDS ORDERED: ONDANSETRON 4 MG/2 ML VIAL IV PRN (01:31)
[2018-02-05] MEDS ORDERED: FUROSEMIDE 40 MG/4 ML VIAL IV ONE (01:33)
[2018-02-05 01:52] VITALS: BMI 30.3
[2018-02-05] MEDS: MORPHINE 4 MG/ML SYR IV PRN ×2 (03:31→22:01)
[2018-02-05] MEDS ORDERED: HYDRALAZINE HCL 20 MG/ML VIAL IV ONE (06:21)
--- NOTE | 2018-02-05 06:34 | P.HP ---
Certification for Inpatient Patient admitted to: Inpatient With expected LOS: >2 Midnights Patient will require the following post-hospital care: None Practitioner: I am a practitioner with admitting privileges, knowledge of patient current condition, hospital course, and medical plan of care. Services: Services provided to patient in accordance with Admission requirements found in Title 42 Section 412.3 of the Code of Federal Regulations Patient History Date of Service: 02/05/18 Reason for admission: Dyspnea History of Present Illness: Patient is a 57-year-old female who is admitted to the hospital with shortness of breath. Patient has been short of breath for the last couple of days. She has not been going to dialysis for the last week. She went to [facility] where she was severely short of breath. She was found be hypoxic with O2 sats in the 80s. After being given IV Lasix her O2 sats came up. She was still over a short of breath and after speaking to her hedis coordinator they recommended being transferred to our facility for hemodialysis. When patient arrived she was stating she was feeling better. She was still occasionally getting short of breath than she was hypertensive. We went ahead and gave her a dose of IV Lasix. Will go ahead and give her IV hydralazine as well. Patient be admitted to the hospital for hemodialysis. Will Consult nephrology later today. Allergies No Known Allergies Allergy (Verified 02/05/18 04:00) Home Medications: Furosemide 40 mg PO DAILY 11/21/17 Isosorbide Mononitrate [Isosorbide Mononitrate ER] 30 mg PO BID 11/21/17 Fluticasone/Salmeterol [Advair 250-50 Diskus] 1 puff IH BID PRN 02/05/18 Ramipril [Altace] 5 mg PO DAILY 02/05/18 cloNIDine HCl [Clonidine HCl] 0.2 mg PO BID 02/05/18 - Past Medical/Surgical History Diabetic: No -: Pulmonary hypertension -: COPD -: History of CVA -: Hepatitis-C -: ESRD, dialysis Tuesdays, and Saturdays -: Anemia of chronic disease -: History of heart surgery -: CHF -: Non compliance -: YOLANDA fistula -: -: Cholecystectomy Psychosocial/ Personal History: Patient lives by herself. She is . She has 2 children. - Family History Mother Medical History: Heart disease Sister Medical History: Hypertension - Social History Smoking Status: Current every day smoker Alcohol use: Yes CD- Drugs: No Caffeine use: Yes Place of Residence: Home Review of Systems 10-point ROS is otherwise unremarkable Physical Examination - Vital Signs Temperature: 97.7 F Blood Pressure: 192/88 Pulse: 64 Respirations: 18 Pulse Ox (%): 100 - Physical Exam General: Alert, In no apparent distress, Oriented x3 HEENT: Atraumatic, PERRLA, Mucous membr. moist/pink, EOMI, Sclerae nonicteric Neck: Supple, 2+ carotid pulse no bruit, No LAD, Without JVD or thyroid abnormality Respiratory: Crackles/rales Cardiovascular: Regular rate/rhythm, Normal S1 S2, Systolic murmur Gastrointestinal: Normal bowel sounds, Soft and benign, Non-distended, No tenderness Musculoskeletal: No clubbing, No tenderness, Swelling Integumentary: No rashes Neurological: Normal gait, Normal speech, Normal strength at 5/5 x4 extr, Normal tone, Sensation intact, Cranial nerves 3-12 intact, Normal affect Lymphatics: No axilla or inguinal lymphadenopathy Assessment & Plan - Problems (Diagnosis) (1) Acute blood loss anemia Current Visit: No Status: Acute (2) Acute on chronic diastolic CHF (congestive heart failure) Onset Date: 05/08/17 Current Visit: No Status: Acute (3) Dyspnea Onset Date: 01/10/18 Current Visit: No Status: Acute Qualifiers: (4) Fever Onset Date: 01/06/16 Current Visit: No Status: Acute Qualifiers: Fever type: unspecified Qualified Code(s): R50.9 - Fever, unspecified (5) Volume overload Onset Date: 05/08/17 Current Visit: No Status: Acute Qualifiers: (6) ESRD (end stage renal disease) on dialysis Onset Date: 01/06/16 Current Visit: No Status: Chronic (7) HTN (hypertension) Onset Date: 05/08/17 Current Visit: No Status: Chronic Qualifiers: Hypertension type: essential hypertension Qualified Code(s): I10 - Essential (primary) hypertension (8) Tobacco abuse Onset Date: 01/25/18 Current Visit: No Status: Chronic (9) COPD (chronic obstructive pulmonary disease) Onset Date: 01/25/18 Current Visit: No Status: Suspected Qualifiers: COPD type: chronic bronchitis Chronic bronchitis type: unspecified Qualified Code(s): J42 - Unspecified chronic bronchitis - Plan Plan: 1. Nephrology consultation with hemodialysis 2. IV Lasix 3. Strict blood pressure control 4. Monitor rule electrolytes 5. Passenger Brakeman regarding compliance 6. GI and DVT prophylaxis Discharge Plan: Home Plan to discharge in: 48 Hours - Advance Directives Does patient have a Living Will: No Does patient have a Durable POA for Healthcare: No - Code Status/Comfort Care Code Status Assessed: Yes Code Status: Full Code Critical Care: No Time Spent Managing PTS Care (In Minutes): 50
[2018-02-05 08:58] LABS: Magnesium 2.5 mg/dL (1.8-2.4); Phosphorus 5.7 mg/dL (2.5-4.9)
[2018-02-05 09:05] LABS: Potassium 5.6 mmol/L (3.5-5.1)
[2018-02-05] MEDS: CARVEDILOL 12.5 MG TAB PO SCH ×2 (09:20→17:00)
[2018-02-05] MEDS: ISOSORBIDE MONO SR 30 MG TAB PO SCH (09:21)
[2018-02-05] MEDS: FUROSEMIDE 40 MG/4 ML VIAL IV SCH ×2 (09:21→19:07)
[2018-02-05 10:20] LABS: Absolute Lymphocytes (CBC) 1.7 K/uL (0.7-4.9); Absolute Monocytes 1.3 K/uL (0.1-1.3); Absolute Neutrophil 4.3 K/uL (1.8-8.0); Basophils % 1.2 % (0-1.3); Eosinophils % 0.9 % (0-4.4); Hematocrit 36.5 % (36.0-45.0); MCH 28.2 pg (27.0-35.0); MCV 86.7 fL (80-100); MPV 8.9 fL (7.6-11.3); Monocytes % 17.1 % (3.3-12.3); RBC Red Blood Cell Count 4.21 M/uL (3.86-4.86)
[2018-02-05] MEDS ORDERED: NA CHLORIDE 0.9% 1,000 ML IV PRN (10:23)
[2018-02-05] MEDS ORDERED: MANNITOL 25% 12.5 GM/50 ML VIAL IV PRN (10:23)
[2018-02-05] MEDS ORDERED: EPOETIN ALFA 10,000 UNIT/ML VIAL IV SCH (10:30)
[2018-02-05] MEDS ORDERED: ALBUMIN HUMAN 25% 50 ML IV SCH (11:00)
[2018-02-05 11:34] LABS: Blood Morphology Comment NOT SEEN (NOT SEEN); Platelet Estimate ADEQ
--- NOTE | 2018-02-05 12:43 | P.CNS ---
Date of Consult: 02/05/18 Reason for Consult: ESRD Requesting Physician: Nicholas Morris Chief Complaint: Dyspnea History of Present Illness: 57 yo BF CKD, CHF presented to the ER with moderate, progressive dyspnea in the setting of CHF after missing multiple HD treatments. She reports that they have not been picking her up. Associated edema, fatigue and weakness. Patient is a 57-year-old female who is admitted to the hospital with shortness of breath. Patient has been short of breath for the last couple of days. She has not been going to dialysis for the last week. She went to [facility] where she was severely short of breath. She was found be hypoxic with O2 sats in the 80s. After being given IV Lasix her O2 sats came up. She was still over a short of breath and after speaking to her aerial survey technician they recommended being transferred to our facility for hemodialysis. When patient arrived she was stating she was feeling better. She was still occasionally getting short of breath than she was hypertensive. We went ahead and gave her a dose of IV Lasix. Will go ahead and give her IV hydralazine as well. Patient be admitted to the hospital for hemodialysis. Allergies No Known Allergies Allergy (Verified 02/05/18 04:00) Home medications list reviewed: Yes Home Medications: Furosemide 40 mg PO DAILY 11/21/17 Isosorbide Mononitrate [Isosorbide Mononitrate ER] 30 mg PO BID 11/21/17 Fluticasone/Salmeterol [Advair 250-50 Diskus] 1 puff IH BID PRN 02/05/18 Ramipril [Altace] 5 mg PO DAILY 02/05/18 cloNIDine HCl [Clonidine HCl] 0.2 mg PO BID 02/05/18 - Past Medical/Surgical History Diabetic: No -: Pulmonary hypertension -: COPD -: History of CVA -: Hepatitis-C -: ESRD, dialysis Tuesdays, and Saturdays -: Anemia of chronic disease -: History of heart surgery -: CHF -: Non compliance -: YOLANDA fistula -: -: Cholecystectomy Psychosocial/ Personal History: Patient lives by herself. She is . She has 2 children. - Family History Mother Medical History: Heart disease Sister Medical History: Hypertension - Social History Smoking Status: Current every day smoker Alcohol use: Yes CD- Drugs: No Caffeine use: Yes Place of Residence: Home Review of Systems 10-point ROS is otherwise unremarkable General: Weakness, Malaise Respiratory: Shortness of Breath, SOB with Excertion Cardiovascular: Edema Physical Examination Temp Pulse Resp BP Pulse Ox 97.2 F 55 18 161/85 H 98 02/05/18 08:00 02/05/18 09:21 02/05/18 08:00 02/05/18 09:21 02/05/18 08:00 General: Oriented x3, Cooperative HEENT: Atraumatic, Mucous membr. moist/pink Neck: JVD distended Respiratory: Diminished Cardiovascular: Regular rate/rhythm, No rubs, Edema Gastrointestinal: Soft and benign, Non-distended Musculoskeletal: No clubbing, No contractures, No warmth Integumentary: No rashes, No cyanosis Neurological: Normal speech Laboratory Data (last 24 hrs) 02/05/18 09:46: WBC 7.4 D, Hgb 11.9 L, Hct 36.5, Plt Count 220 D 02/05/18 08:19: Sodium 143, Potassium 5.6 H*, BUN 62 H D, Creatinine 12.50 H* D , Glucose 102, Phosphorus 5.7 H, Magnesium 2.5 H Conclusions/Impression: A/ A/C Diastolic CHF. ESRD on HD. HTN with CKD. Anemia in CKD. HILARIO/ Secondary HyperPTH. HCV. COPD. CAD/ CVD. P/ Continue current POC and Medications. Arrange for acute HD. Seen and examined on HD. Next HD tomorrow. Restart home medications as indicated. Agree with lasix. Start Vitamin D and binders. Give Epo. Will need to review her transportation arrangements. No NSAIDs. AM labs. Daily weight. Thank you kindly for the consultation.
--- NOTE | 2018-02-05 13:39 | P.PN ---
Subjective Date of Service: 02/05/18 Primary Care Provider: none; Nephrology-Dr. Estevez Chief Complaint: Dyspnea Subjective: Other (Patient stable this time.) Physical Examination - Vital Signs Temperature: 97.1 F Blood Pressure: 182/81 Pulse: 64 Respirations: 18 Pulse Ox (%): 97 - Physical Exam General: Alert, In no apparent distress, Cooperative HEENT: Atraumatic Neck: Supple Respiratory: Crackles/rales (Bilateral) Cardiovascular: Normal pulses, Regular rate/rhythm Gastrointestinal: Normal bowel sounds, Soft and benign, Non-distended, No tenderness, No masses, No rebound, No guarding Musculoskeletal: No erythema, No tenderness, No warmth Integumentary: Tenderness/swelling (Mild edema to the lower extremities) Neurological: Normal speech, Normal strength at 5/5 x4 extr, Normal tone, Normal affect - Studies Laboratory Data (last 24 hrs) 02/05/18 09:46: WBC 7.4 D, Hgb 11.9 L, Hct 36.5, Plt Count 220 D 02/05/18 08:19: Sodium 143, Potassium 5.6 H*, BUN 62 H D, Creatinine 12.50 H* D , Glucose 102, Phosphorus 5.7 H, Magnesium 2.5 H Medications List Reviewed: Yes Assessment & Plan - Problems (Diagnosis) (1) Acute on chronic diastolic CHF (congestive heart failure) Onset Date: 05/08/17 Current Visit: No Status: Acute Plan: Patient will receive dialysis today. I discussed at length with her sister who has medical power of disability attorney. Her home situation is not good. Patient likely using illegal drugs. Patient has been non compliant with dialysis over the past 6 weeks. Options include [facility] placement or hospice will be addressed in detail with the patient along with medical power disability attorney. Case discussed at length with nephrology who agrees. Hopefully the patient will agree to [facility] placement. (2) ESRD (end stage renal disease) on dialysis Onset Date: 01/06/16 Current Visit: No Status: Chronic Plan: Continue as above. We will address plan of care either [facility] or hospice with the patient this afternoon. Medical power of disability attorney will be present. (3) HTN (hypertension) Onset Date: 05/08/17 Current Visit: No Status: Chronic Plan: Patient will get dialysis. Continue her medication Qualifiers: Hypertension type: essential hypertension Qualified Code(s): I10 - Essential (primary) hypertension (4) Noncompliance Onset Date: 01/10/18 Current Visit: No Status: Chronic Plan: Continue as above. (5) Tobacco abuse Onset Date: 01/25/18 Current Visit: No Status: Chronic Plan: Will address lifestyle modification education. Will check urine drug screen. (6) COPD (chronic obstructive pulmonary disease) Onset Date: 01/25/18 Current Visit: No Status: Suspected Plan: Will provide medication. Qualifiers: COPD type: chronic bronchitis Chronic bronchitis type: unspecified Qualified Code(s): J42 - Unspecified chronic bronchitis Discharge Plan: Other (long term verses hospice) Plan to discharge in: 24 Hours Time Spent Managing Pts Care (In Minutes): 55
[2018-02-05 15:28] LABS: Barbiturates NEGATIVE (NEGATIVE); Benzodiazepines NEGATIVE (NEGATIVE); Cocaine POSITIVE (NEGATIVE); METHAMPHETAM NEGATIVE (NEGATIVE); Methadone NEGATIVE (NEGATIVE); Opiates NEGATIVE (NEGATIVE); Phencyclidine NEGATIVE (NEGATIVE); THC Cannibis NEGATIVE (NEGATIVE)
[2018-02-05] MEDS: SEVELAMER CARBONATE 800 MG TABLET PO SCH (19:07)
[2018-02-05] MEDS: ARFORMOTEROL TARTRATE 15 MCG/2 ML VIAL.NEB NEB SCH (19:40)
[2018-02-05] MEDS: HYDRALAZINE HCL 20 MG/ML VIAL IV PRN (21:50)
[2018-02-06] MEDS: HYDRALAZINE HCL 20 MG/ML VIAL IV PRN ×2 (03:37→15:41)
[2018-02-06] MEDS: MORPHINE 4 MG/ML SYR IV PRN (03:45)
[2018-02-06 05:04] LABS: Absolute Lymphocytes (CBC) 1.5 K/uL (0.7-4.9); Absolute Monocytes 1.3 K/uL (0.1-1.3); Absolute Neutrophil 3.6 K/uL (1.8-8.0); Basophils % 1.1 % (0-1.3); Hematocrit 36.6 % (36.0-45.0); MCH 28.9 pg (27.0-35.0); MCV 86.1 fL (80-100); MPV 9.2 fL (7.6-11.3); Monocytes % 20.2 % (3.3-12.3); RBC Red Blood Cell Count 4.25 M/uL (3.86-4.86)
[2018-02-06 05:25] LABS: Albumin 3.3 g/dL (3.4-5.0); Bilirubin Total 0.8 mg/dL (0.2-1.0); Potassium 4.3 mmol/L (3.5-5.1); Protein, Total 7.5 g/dL (6.4-8.2); Uric Acid 5.2 mg/dL (2.6-6.0)
[2018-02-06 06:20] LABS: Blood Morphology Comment NOT SEEN (NOT SEEN); Platelet Estimate ADEQ
[2018-02-06] MEDS: CARVEDILOL 12.5 MG TAB PO SCH ×2 (07:53→16:41)
[2018-02-06] MEDS: SEVELAMER CARBONATE 800 MG TABLET PO SCH ×3 (07:53→16:41)
[2018-02-06] MEDS: FUROSEMIDE 40 MG/4 ML VIAL IV SCH ×2 (07:54→16:42)
[2018-02-06] MEDS: ISOSORBIDE MONO SR 30 MG TAB PO SCH (07:54)
[2018-02-06] MEDS: ARFORMOTEROL TARTRATE 15 MCG/2 ML VIAL.NEB NEB SCH (08:00)
[2018-02-06] MEDS ORDERED: VITAMIN D 5,000 UNIT CAP PO SCH (09:00)
[2018-02-06] MEDS ORDERED: CALCITROL 0.25 MCG CAP PO SCH (09:00)
--- NOTE | 2018-02-06 12:13 | P.DS ---
Admission Date: 02/05/18 Discharge Date: 02/06/18 Primary Care Provider: none; Nephrology-Dr. Estevez Disposition: DC HOME/HOME HEALTH CARE Discharge Condition: GOOD Reason for Admission: Dyspnea Consultations: Nephrology-Dr. Estevez - Problems (1) Acute on chronic diastolic CHF (congestive heart failure) Onset Date: 05/08/17 Current Visit: No Status: Acute (2) ESRD (end stage renal disease) on dialysis Onset Date: 01/06/16 Current Visit: No Status: Chronic (3) HTN (hypertension) Onset Date: 05/08/17 Current Visit: No Status: Chronic Qualifiers: Hypertension type: essential hypertension Qualified Code(s): I10 - Essential (primary) hypertension (4) Noncompliance Onset Date: 01/10/18 Current Visit: No Status: Chronic (5) Tobacco abuse Onset Date: 01/25/18 Current Visit: No Status: Chronic (6) COPD (chronic obstructive pulmonary disease) Onset Date: 01/25/18 Current Visit: No Status: Suspected Qualifiers: COPD type: chronic bronchitis Chronic bronchitis type: unspecified Qualified Code(s): J42 - Unspecified chronic bronchitis (7) Cocaine abuse Current Visit: Yes Status: Acute Brief History of Present Illness: 57-year-old female with history of end-stage renal disease, hypertension , and noncompliance with dialysis. Patient came in with shortness of breath secondary to acute on chronic CHF and pulmonary edema likely related to poor compliance with her end-stage renal disease. Patient was admitted for treatment. Hospital Course: During the course of his stay patient received dialysis with improvement in her shortness of breath. A long discussion occurred with her sister who has medical power of senior trial attorney concerning her compliance with dialysis. Sister reports that the patient is not in a good environment to maintain compliance. The patient has been using illegal drugs. Patient tested positive for cocaine. Options of jail versus hospice verses home health was discussed. Patient agreed to jail placement. Unfortunately the patient did not qualify for approval. Therefore at discharge patient will go home with home health. Home caregiver will will be set up as an outpatient. This is to help with her compliance. Compliance with dialysis was addressed in detail. She understands this. She is willing to cooperate. At discharge patient will continue with dialysis every Tuesdays, and Saturdays. Care was discussed with nephrology. Patient has hypertension. She will continue with her medication-ramipril 5 mg daily, clonidine 0.2 mg 1 pill twice daily, and carvedilol 12.5 mg daily. Recommendation is to maintain blood pressures less 150/80. Further adjustment can be done by her PCP. Patient will continue with Imdur ER 30 mg daily. Patient has COPD. She will continue with Advair 1 puff twice daily and Pro air 2 puffs 3 times a day as needed for shortness of breath. Tobacco cessation education will be provided. Patient has end-stage renal disease. She will continue with dialysis as stated above. This will need to be monitored for compliance. Patient has CHF. She will continue with a 1500 cc per day fluid restriction and low-salt diet. Patient will continue with Lasix 40 mg daily. She is to monitor her weight daily. If her weight increases by more than 5 lb she is to contact nephrology for further recommendation Cocaine cessation addressed in detail. Her sister will make sure that she is compliant. Vital Signs/Physical Exam: Temp Pulse Resp BP Pulse Ox 97.6 F 65 18 210/92 H 94 02/06/18 12:00 02/06/18 12:00 02/06/18 12:00 02/06/18 12:00 02/06/18 12:00 General: Alert, In no apparent distress, Oriented x3, Cooperative HEENT: Atraumatic Neck: Supple Respiratory: Clear to auscultation bilaterally, Normal air movement Cardiovascular: Normal pulses, Regular rate/rhythm Gastrointestinal: Normal bowel sounds, Soft and benign, Non-distended Musculoskeletal: No erythema, No tenderness, No warmth Integumentary: No erythema, No warmth, No cyanosis Neurological: Normal speech, Normal strength at 5/5 x4 extr, Normal tone, Normal affect Laboratory Data at Discharge: WBC 6.5 K/uL (4.3-10.9) 02/06/18 03:56 Hgb 12.3 g/dL (12.0-15.0) 02/06/18 03:56 Hct 36.6 % (36.0-45.0) 02/06/18 03:56 Plt Count 186 K/uL (152-406) 02/06/18 03:56 Sodium 141 mmol/L (136-145) 02/06/18 03:56 Potassium 4.3 mmol/L (3.5-5.1) 02/06/18 03:56 BUN 28 mg/dL (7-18) H D 02/06/18 03:56 Creatinine 7.00 mg/dL (0.55-1.3) H* D 02/06/18 03:56 Glucose 115 mg/dL (74-106) H 02/06/18 03:56 Uric Acid 5.2 mg/dL (2.6-6.0) 02/06/18 03:56 Phosphorus 5.7 mg/dL (2.5-4.9) H 02/05/18 08:19 Magnesium 2.5 mg/dL (1.8-2.4) H 02/05/18 08:19 Total Bilirubin 0.8 mg/dL (0.2-1.0) 02/06/18 03:56 AST 18 U/L (15-37) 02/06/18 03:56 ALT 13 U/L (12-78) 02/06/18 03:56 Alkaline Phosphatase 139 U/L (45-117) H 02/06/18 03:56 Home Medications: RX: Furosemide 40 mg PO DAILY 11/21/17 RX: Isosorbide Mononitrate [Isosorbide Mononitrate ER] 30 mg PO BID 11/21/17 RX: Fluticasone/Salmeterol [Advair 250-50 Diskus] 1 puff IH BID PRN 02/05/18 RX: Ramipril [Altace*] 5 mg PO DAILY 02/05/18 RX: cloNIDine HCl [Clonidine HCl] 0.2 mg PO BID 02/05/18 RX: Carvedilol [Coreg*] 12.5 mg PO BIDWM #60 tab 02/06/18 RX: Sevelamer Carbonate [Renvela*] 800 mg PO TIDWM #90 tablet 02/06/18 New Medications: RX: Carvedilol [Coreg*] 12.5 mg PO BIDWM #60 tab RX: Sevelamer Carbonate [Renvela*] 800 mg PO TIDWM #90 tablet Patient Discharge Instructions: 1. Patient will need a follow up with PCP in 1 week to follow up this hospitalization. 2. Patient presented with shortness of breath secondary to acute on chronic CHF and noncompliance with end-stage renal disease/dialysis. Patient has received dialysis. Patient does not qualify for jail placement. Therefore at discharge patient will go home with home health. Outpatient caregiver services will be set up as an outpatient. Patient will continue with dialysis every Tuesdays, and Saturdays. 3. Patient has hypertension. She will continue with ramipril 5 mg daily, clonidine 0.2 mg 1 pill twice daily, and carvedilol 12.5 mg 1 pill twice daily. Recommendation is to maintain blood pressures less 150/80. Further adjustment can be done by her PCP. 4. Patient has CHF. She will continue with a 1500 cc per day fluid restriction and low-salt diet. Patient will continue with Lasix 40 mg daily. She is to monitor her weight daily. If her weight increases by more than 5 lb she is to contact her PCP or nephrology to for further instruction. 5. The patient has COPD. She will continue with Advair 250 mcg 1 puff twice daily and Pro air 2 puffs 3 times a day as needed for shortness of breath. Tobacco cessation will be provided. 6. Patient has end-stage renal disease. She will continue with dialysis every Tuesdays, and Saturdays. Patient will continue with Renvela 800 mg 3 times a day. Compliance will need to be monitored and enforced. 7. Patient will continue with Imdur ER ER 30 mg daily. 8. Cocaine cessation education will be provided. Diet: Renal Activity: Fall precautions Time spent managing pt's care (in minutes): 55
[2018-02-06 16:01] VITALS: TEMP 97.9
[2018-02-06 16:42] VITALS: BP 147/70
[2018-02-06 18:48] VITALS: O2SAT 94
[2018-02-06] MEDS ORDERED: cloNIDine HCl 0.1 MG TAB PO SCH (21:00)
[2018-02-07] MEDS ORDERED: RAMIPRIL 5 MG CAP PO SCH (09:00)
--- NOTE | 2018-02-07 22:59 | P.PN ---
Date of Service: 02/06/18 Vital Signs Temp Pulse Resp BP Pulse Ox 97.9 F 66 18 147/70 H 94 02/06/18 16:00 02/06/18 16:42 02/06/18 16:00 02/06/18 16:42 02/06/18 16:00 Assessment/ Plan: Nephrology. Feeling better. CPS stable without CP or SOB. No acute events overnight. Vitals, medications, blood work and imaging reviewed in the chart. General: Oriented x3, Cooperative HEENT: Atraumatic, Mucous membr. moist/pink Neck: JVD distended Respiratory: Diminished Cardiovascular: Regular rate/rhythm, No rubs, Edema Gastrointestinal: Soft and benign, Non-distended Musculoskeletal: No clubbing, No contractures, No warmth Integumentary: No rashes, No cyanosis Neurological: Normal speech Laboratory Data (last 24 hrs) 02/05/18 09:46: WBC 7.4 D, Hgb 11.9 L, Hct 36.5, Plt Count 220 D 02/05/18 08:19: Sodium 143, Potassium 5.6 H*, BUN 62 H D, Creatinine 12.50 H* D , Glucose 102, Phosphorus 5.7 H, Magnesium 2.5 H Conclusions/Impression: A/ A/C Diastolic CHF. ESRD on HD. HTN with CKD. Anemia in CKD. HILARIO/ Secondary HyperPTH. HCV. COPD. CAD/ CVD. P/ Continue current POC and Medications. Arrange for acute HD today. No NSAIDs. AM labs. Daily weight. Case discussed with Dr. Morris. Counseled regarding compliance.
== END 2018-02-06 19:35 | disposition home health service (06) ==
LOC: INTOOBSV 00:30 → 4TH 00:30
PROVIDERS: ADMIT Hospitalist; ATTEND Family Medicine
PROC: 5A1D70Z Performance of Urinary Filtration, Intermittent, Less than 6 Hours Per Day (ICD-10-PCS; principal; 2018-02-05)
DX: I13.2 Hypertensive heart and chronic kidney disease with heart failure and with stage 5 chronic kidney disease, or end stage renal disease (principal); I50.33 Acute on chronic diastolic (congestive) heart failure; N18.6 End stage renal disease; Z99.2 Dependence on renal dialysis; D63.1 Anemia in chronic kidney disease; N25.0 Renal osteodystrophy; N25.81 Secondary hyperparathyroidism of renal origin; B18.2 Chronic viral hepatitis C; J44.9 Chronic obstructive pulmonary disease, unspecified; I25.10 Atherosclerotic heart disease of native coronary artery without angina pectoris; Z91.15 Patient's noncompliance with renal dialysis; F17.200 Nicotine dependence, unspecified, uncomplicated; F14.10 Cocaine abuse, uncomplicated; I27.20 Pulmonary hypertension, unspecified
CPT/HCPCS: 36415; 80048; 80053; 80307 ×8; 83735; 84100; 84550; 85025 ×2; 90935 ×3; 94640; G0378 ×2; J0360 ×3; J7605; Q4081; G0257

== ENCOUNTER 2018-03-17 11:40 | Observation (INO) | payer OTHER ==
--- OUTSIDE RECORDS SUMMARY | 2018-03-17 11:42 | XMS REPORT | Clinical Summary ---
:1960 Author Organization [facility] Address [address] [place] [address] Phone Care Team Providers Name Role Phone [...] INFLUENZA VACCINE 04/02/2018 Implants Implanted Type Area Personal Lines Sales Executive Device Expiration Model / Identifier Date Serial / Lot Grft Hemshld Dbl Jarrod 2.0x6.0in [id number] - [id number] Graft/Pat GETINGE 01/30/2019 [id number] / Implanted: Qty: 1 on 01/25/2016 by Sherif Bañuelos MD IND: OSBALDO:CV / [id number] Results Not on fileafter 03/16/2017
--- OUTSIDE RECORDS SUMMARY | 2018-03-17 11:43 | XMS REPORT | Continuity of Care Document ---
:1960 Author Organization Interface Problems Problem Status Onset Classification Date Comments Source Date Reported NUMBNESS Active 01/09/[address] ISCHEMIC STROKE Active 01/09/[address] Methicillin Active 06/11/20 Problem 01/13/2017 Problem resistant 09 added by [facility] Staphylococcus Discern [facility] aureus<sup>2, Expert. 3</sup> Final: Cerebral 01/13/2017 infarction, [facility] unspecified [facility] Bipolar disorder Resolved Problem 01/13/[address] [facility] CKD (<span Resolved Problem 01/13/2017 ID="[id number]" [facility] >Confirmed</span> [facility] ) COPD (<span Resolved Problem 01/13/2017 ID="[id number]"> [facility] Confirmed</span>) [facility] CVA (<span Resolved Problem 01/13/2017 ID="[id number]" [facility] >Confirmed</span> [facility] ) Dialysis Resolved Problem 01/13/2017 started patient<sup>1</najera approx 2013 [facility]bladder Resolved Problem 01/13/2017 disease [facility] Heart attack Resolved Problem 01/13/[address] [facility] Hepatitis C Resolved Problem 01/13/[address] [facility] HTN (<span Resolved Problem 01/13/2017 ID="[id number]"> [facility] Confirmed</span>) [facility] Simple obesity Active Problem 01/13/[address] [facility] Smoker Resolved Problem 01/13/[address] [facility] ILLNESS, Active UNSPECIFIED [facility] CEREBRAL Active INFARCTION, [facility] Medications Medication Details Route Status Patient Ordering Order Source Instructions Provider Date atorvastatin 10 mg, 1 tab, No Longer Route: PO, Drug Active 2016 [facility] form: TAB, [facility] Bedtime, Dosing Weight 76.007, kg, Start date: 01/09/17 21:00:00 CDT, Duration: 30 day, Stop date: 02/07/17 21:00:00 CDTNotes: (Same As: Lipitor) aspirin 81 mg 81 mg=1 tab, Active tablet, enteric PO, Daily, # 30 2016 [facility] coated tab, 0 [facility] Refill(s) atorvastatin 10 10 mg=1 tab, Active mg oral tablet PO, Bedtime, # 2017 [facility] 30 tab, 0 [facility] Refill(s) heparin 5,000 unit, 1 No Longer mL, Route: Active 2016 [facility] SUB-Q, Drug [facility] form: INJ, Q8H, Start date: 01/09/17 16:00:00 CDT, Duration: 30 day, Stop date: 02/08/17 8:00:00 CDTNotes: porcine heparin gabapentin 100 300 mg, 1 cap, No Longer MG Oral Capsule Route: PO, Drug Active 2016 [facility] form: CAP, City Bedtime, Dosing Weight 76.007, kg, Start date: 01/08/17 21:00:00 CDT, Duration: 30 day, Stop date: 02/06/17 21:00:00 CDTNotes: (Same as: Neurontin) Saline Flush 10 ml, Route: Inactive 0.9% IVP, Drug Form: 2016 [facility] INJ, Dosing [facility] Weight 76.007, kg, Q12H, Start date: 01/08/17 21:00:00 CDT, Duration: 30 day, Stop date: 02/07/17 9:00:00 CDT Hydroxyzine 50 mg, 2 tab, No Longer Route: PO, Drug Active 2016 [facility] form: TAB, TID, [facility] Dosing Weight 76.007, kg, Start date: 01/08/17 19:00:00 CDT, Duration: 30 day, Stop date: 02/07/17 17:00:00 CDTNotes: (Same as: Atarax) Avoid alcohol. ARIPiprazole 10 mg, 2 tab, No Longer Route: PO, Drug Active 2016 [facility] form: TAB, City Daily, Dosing Weight 76.007, kg, Start date: 01/08/17 19:00:00 CDT, Duration: 30 day, Stop date: 02/07/17 9:00:00 CDTNotes: Non-Formulary Drug. (Same as: Abilify) Amlodipine 10 mg, 2 tab, No Longer Route: PO, Drug Active [address] [place] [address] form: TAB, [facility] Daily, Dosing Weight 76.007, kg, Start date: 01/08/17 18:26:00 CDT, Duration: 30 day, Stop date: 02/07/17 9:00:00 CDTNotes: (Same as: Norvasc) Sertraline 50 mg, 1 tab, No Longer Route: PO, Drug Active 2016 [facility] form: TAB, [facility] Daily, Dosing Weight 76.007, kg, Start date: 01/08/17 18:25:00 CDT, Duration: 30 day, Stop date: 02/07/17 9:00:00 CDTNotes: (Same as: Zoloft) Clonidine 0.2 mg, 2 tab, No Longer Hydrochloride Route: PO, Drug Active 2016 [facility] 0[facility]2 MG Oral form: TAB, TID, [facility] Tablet Dosing Weight 76.007, kg, Start date: 01/08/17 18:24:00 CDT, Duration: 30 day, Stop date: 02/07/17 17:00:00 CDTNotes: (Same As: Catapres) 200 ACTUAT 2.49 mg, 3 mL, No Longer Albuterol 0.09 Route: NEB, Active 2016 [facility] MG/ACTUAT Drug Form: [facility] Metered Dose SOLN, Dosing Inhaler [ProAir Weight 76.007, HFA] kg, RQID, PRN Wheezing, Start date: 01/08/17 18:00:00 CDT, Duration: 30 day, Stop date: 02/07/17 17:59:00 CDTNotes: SEE RT DOCUMENTATION (Same as: Proventil) Hydralazine 10 mg, 0.5 mL, No Longer Route: IV, Drug Active 2016 [facility] form: INJ, Q4H, [facility] Dosing Weight 76.007, kg, PRN Elevated BP, Start date: 01/08/17 17:42:00 CDT, Duration: 30 day, Stop date: 02/07/17 17:41:00 CDTNotes: (Same as: Apresoline) Push over 5 minutes Clonidine 0.1 mg=0.5 tab, Active Hydrochloride PO, TID, 0 2016 [facility] 0.2 MG Oral Refill(s) [facility] Tablet ARIPiprazole 10 10 mg=1 tab, Active mg oral tablet PO, Daily, # 30 2016 [facility] tab, 0 [facility] Refill(s) Amlodipine 10 mg, PO, Active Daily, 0 2016 [facility] Refill(s) [facility] sertraline 50 50 mg=1 tab, Active mg oral tablet PO, Daily, 0 2016 [facility] Refill(s) [facility] gabapentin 100 300 mg=3 cap, Active MG Oral Capsule PO, Bedtime, 0 2016 [facility] Refill(s) [facility] Hydroxyzine 50 mg, PO, TID, Active 0 Refill(s) 2016 [facility] Enoxaparin 30 mg, 0.3 mL, No Longer Route: SUB-Q, Active 2016 [facility] Drug form: INJ, [facility] [id number], Dosing Weight 76.007, kg, Start date: 01/08/17 17:00:00 CDT, Stop date: 02/06/17 17:00:00 CDTNotes: (Same as: Lovenox) aspirin 81 mg 81 mg, 1 tab, No Longer tablet, enteric Route: PO, Drug Active 2016 [facility] coated form: ECTAB, [facility] Daily, Dosing Weight 76.007, kg, Start date: 01/08/17 16:49:00 CDT, Duration: 30 day, Stop date: 02/07/17 9:00:00 CDTNotes: Do not crush or chew. (Same As: Ecotrin) Famotidine 20 mg, 1 tab, No Longer Route: PO, Drug Active 2016 [facility] form: TAB, [facility] Q12H, Dosing Weight 76.007, kg, Start date: 01/08/17 16:49:00 CDT, Duration: 30 day, Stop date: 02/07/17 9:00:00 CDTNotes: (Same as: Pepcid) Sodium Chloride 25 mL, Route: No Longer 0.9% IV IVP, Start Active 2016 [facility] date: 01/08/17 [facility] 16:48:00 CDT, Duration: 30 day, Stop date: 02/07/17 16:47:00 CDT, PRN Line Flush BD Normal 10 mL, Route: No Longer Saline Flush IVP, Drug Form: Active 2016 [facility] INJ, PRN, PRN [facility] Line Flush, Start date: 01/08/17 16:48:00 CDT, Duration: 30 day, Stop date: 02/07/17 16:47:00 CDTNotes: (Same as: BD Posiflush) BD Normal 5 mL, Route: No Longer Saline Flush IVP, Drug Form: Active 2016 [facility] INJ, PRN, PRN [facility] Line Flush, Start date: 01/08/17 16:47:00 CDT, Duration: 30 day, Stop date: 02/07/17 16:46:00 CDTNotes: (Same as: BD Posiflush) Saline Flush 10 ml, Route: Inactive 0.9% IVP, Drug Form: 2016 [facility] INJ, Dosing City Weight 76.007, kg, PRN, PRN Line Flush, Start date: 01/08/17 16:41:00 CDT, Duration: 30 day, Stop date: 02/07/17 16:40:00 CDT Allergies, Adverse Reactions, Alerts Substance Category Reaction Severity Reaction Status Date Comments Source type Reported NKDA Assertion Drug Active allergy [facility] Immunizations Immunization Date Site Status Last Comments Source Given Updated pneumococcal Right completed Jimenez [facility] 13-valent vaccine 7 [facility] tetanus-diphtheri Right completed Katya [facility] a toxoids 9 [facility] Results Order Name Results Value Reference [...] is not recommended in the following populations: [address] Individuals with unstable creatinine concentrations, including [...] 3.84 mg/dL 0.50 - 01/10 Lvl 1.40 [facility] CHEM PANEL Calcium Lvl 8.3 mg/dL 8.5 - 10.5 01/10 [facility] CHEM PANEL AGAP 10.1 meq/L 10.0 - 01/10 MH 20.0 [facility] CHEM PANEL CO2 32 meq/L 24 - 32 01/10 [facility] CHEM PANEL Chloride Lvl 102 meq/L 95 - 109 01/10 [facility] CHEM PANEL Potassium 4.1 meq/L 3.5 - 5.1 01/10 Lvl [facility] CHEM PANEL Sodium Lvl 140 meq/L 135 - 145 01/10 [facility] CHEM PANEL BUN 9 mg/dL 7 - 22 01/10 [facility] CHEM PANEL Glucose Lvl 91 mg/dL 70 - 99 01/10 [facility] CHEM PANEL Phosphorus 2.6 mg/dL 2.5 - 4.5 01/10 [facility] IMMUNOLOGY Hep Bs Ag Negative Negative 01/09 [facility] (01/09/17 6:45 PM) DRUG SCREEN UDS Note See Note 01/08 [facility] (01/08/17 6:00 PM) DRUG SCREEN U Benzodia Negative Negative 01/08 [facility] (01/08/17 6:00 PM) DRUG SCREEN U Pinky Scr Negative Negative 01/08 [facility] (01/08/17 6:00 PM) DRUG SCREEN U Cocaine Negative Negative 01/08 [facility] (01/08/17 6:00 PM) DRUG SCREEN U Cannab Scr Negative Negative 01/08 [facility] (01/08/17 6:00 PM) DRUG SCREEN U Phencyc Negative Negative 01/08 [facility] (01/08/17 6:00 PM) DRUG SCREEN U Opiate Scr Negative Negative 01/08 [facility] (01/08/17 6:00 PM) DRUG SCREEN U Amph Scr Negative Negative 01/08 [facility] (01/08/17 6:00 PM) URINE AND UA <=1.0 0.1 - 1.0 01/08 STOOL Urobilinogen mg/dL /2016 [facility] URINE AND UA Ketones Negative 01/08 [facility] URINE AND UA Color Straw 01/08 [facility] URINE AND UA pH >=9.0 5.0 - 8.0 01/08 [facility] *ABN* [facility] (01/08/17 6:00 PM) URINE AND UA RBC null 0 - 2 01/08 [facility] URINE AND UA WBC 1 /HPF 0 - 5 01/08 [facility] URINE AND UA Glucose Negative Negative 01/08 STOOL mg/dL mg/dL [facility] URINE AND UA Spec Grav 1.004 <=1.030 01/08 [facility] URINE AND UA Nitrite Negative Negative 01/08 STOOL [facility] (01/08/17 6:00 PM) [facility] URINE AND UA Protein 30 mg/dL Negative 01/08 STOOL mg/dL [facility] URINE AND UA Turbidity Clear Clear 01/08 STOOL [facility] (01/08/17 6:00 PM) [facility] URINE AND UA Bili Negative Negative 01/08 [facility] *NA* [facility] (01/08/17 6:00 PM) URINE AND UA Blood Negative Negative 01/08 [facility] (01/08/17 6:00 PM) [facility] URINE AND UA Mucus Few /LPF None Seen 01/08 STOOL /LPF /2016 [facility] URINE AND UA Sq Epi Few /LPF Few /LPF 01/08 [facility] URINE AND UA Leuk Est Negative Negative 01/08 STOOL [facility] (01/08/17 6:00 PM) [facility] URINE AND UA Bacteria Occasional None Seen 01/08 STOOL /HPF /HPF /2016 [facility] HEMATOLOGY PTT 36.2 s 22.9 - 01/08 MH 35.8 /2016 [facility] HEMATOLOGY INR 1.05 0.85 - 01/08 1. [facility] HEMATOLOGY PT 13.9 s 12.0 - / MH 14.7 [facility] LIPIDS VLDL 22 01/08 [facility] LIPIDS LDL 50 mg/dL <=99 mg/dL 01/08 MH (Calculated) [facility] LIPIDS Chol 145 mg/dL <=199 01/08 mg/dL [facility] LIPIDS Trig 109 mg/dL <=149 01/08 mg/dL [facility] LIPIDS HDL 73 mg/dL >=61 mg/dL 01/08 [facility] LIPIDS CHD Risk 1.99 3.90 - 07 MH 5.80 /2016 [facility] SPECIAL Hgb A1C 4.6 % <=5.6 % 01/08 CHEMISTRY /2016 [facility] CHEM PANEL B/C Ratio 3 6 - 25 01/08 [facility] CHEM PANEL AGAP 14.4 meq/L 10.0 - 01/08 MH 20.0 [facility] CHEM PANEL Globulin 5.5 g/dL 2.7 - 4.2 01/08 [facility] CHEM PANEL A/G Ratio 0.6 0.7 - 1.6 01/08 [facility] CHEM PANEL eGFR 8 01/08 Result [...] is not recommended in the following populations: [address] Individuals with unstable creatinine concentrations, including [...] Lvl 85 mg/dL 70 - 99 01/08 [facility] CHEM PANEL CO2 26 meq/L 24 - 32 01/08 [facility] CHEM PANEL ALT 14 unit/L 0 - 65 01/08 [facility] CHEM PANEL Creatinine 6.23 mg/dL 0.50 - 01/08 Lvl 1.40 [facility] CHEM PANEL Albumin Lvl 3.3 g/dL 3.5 - 5.0 01/08 [facility] CHEM PANEL BUN 16 mg/dL 7 - 22 01/08 [facility] CHEM PANEL AST 24 unit/L 0 - 37 01/08 [facility] CHEM PANEL Bili Total 0.5 mg/dL 0.2 - 1.3 01/08 [facility] CHEM PANEL Total 8.8 g/dL 6.4 - 8.4 01/08 MH [facility] CHEM PANEL Alk Phos 215 unit/L 39 - 136 01/08 [facility] CHEM PANEL Chloride Lvl 101 meq/L 95 - 109 01/08 [facility] CHEM PANEL Potassium 5.4 meq/L 3.5 - 5.1 01/08 Lvl [facility] CHEM PANEL Calcium Lvl 9.1 mg/dL 8.5 - 10.5 01/08 [facility] CHEM PANEL Sodium Lvl 136 meq/L 135 - 145 01/08 [facility] CHEM PANEL Magnesium 2.4 mg/dL 1.8 - 2.4 01/08 Lvl [facility] HEMATOLOGY Hgb 10.5 g/dL 12.0 - 01/08 MH 16.0 [facility] HEMATOLOGY Hct 31.5 % 36.0 - 01/08 MH 48.0 [facility] HEMATOLOGY WBC 9.0 K/CMM 3.7 - 10.4 01/08 [facility] HEMATOLOGY RBC 3.70 M/CMM 4.20 - 01/08 MH 5.40 /2016 [facility] HEMATOLOGY MCV 85.3 fL 80.0 - 01/08 MH 98.0 [facility] HEMATOLOGY MCH 28.5 pg 27.0 - 01/08 MH 31.0 [facility] HEMATOLOGY MCHC 33.4 g/dL 32.0 - 01/08 MH 36.0 [facility] HEMATOLOGY RDW 12.9 % 11.5 - 07 MH 14.5 /2016 [facility] HEMATOLOGY Platelet 212 K/CMM 133 - 450 01/08 [facility] HEMATOLOGY MPV 9.0 fL 7.4 - 10.4 01/08 [facility] HEMATOLOGY Monocytes 12.8 % 2.0 - 12.0 01/08 [facility] HEMATOLOGY Segs 43.7 % 45.0 - 07 MH 75.0 [facility] HEMATOLOGY Lymphocytes 40.4 % 20.0 - 01/08 MH 40.0 [facility] HEMATOLOGY Segs-Bands # 4.0 K/CMM 1.5 - 8.1 01/08 [facility] HEMATOLOGY Eosinophils 1.9 % 0.0 - 4.0 01/08 [facility] HEMATOLOGY Monocytes # 1.2 K/CMM 0.0 - 0.8 01/08 [facility] HEMATOLOGY Lymphocytes 3.7 K/CMM 1.0 - 5.5 01/08 [facility] HEMATOLOGY Basophils 1.2 % 0.0 - 1.0 01/08 [facility] HEMATOLOGY Eosinophils 0.2 K/CMM 0.0 - 0.5 01/08 [facility] HEMATOLOGY Basophils # 0.1 K/CMM 0.0 - 0.2 01/08 [facility] Brain wo Brain wo Brain wo contrast MRI 01/08/2017 4:41 PM CDT 01/08 - contrast contrast MRI /2016 - [facility] 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[facility], [place]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 reported age [...] Comments Source Systolic (mm Hg) 128 01/10/[address] [facility] Diastolic (mm Hg) 72 01/10/[address] [facility] Respitory Rate 14 01/10/[address] [facility] Systolic (mm Hg) 100 01/10/[address] [facility] Diastolic (mm Hg) 72 01/10/[address] [facility] Respitory Rate 24 01/10/[address] [facility] Systolic (mm Hg) 118 01/10/[address] [facility] Diastolic (mm Hg) 60 01/10/[address] [facility] Respitory Rate 19 01/10/[address] [facility] BMI Calculated 32.73 01/08/[address] [facility] Weight 76.007 01/08/[address] [facility] Height 152.4 cm 01/08/[address] [facility] Encounters Location Location Encounter Encounter Reason Attending ADM DC Status Source Details Type Number For Provider Date Date Visit [facility] Observation [id number] Tom 01/09 01/10 Cullen Muir /2016 [facility] Procedures Procedure Code Date Perfomer Comments Source section [id number] [facility] Cholecystectomy [id number] [facility]
--- NOTE | 2018-03-17 14:02 | RAD REPORT ---
EXAM DESCRIPTION: [facility] Single View03/17/2018 1:51 pm CLINICAL HISTORY: Chest pain COMPARISON: None FINDINGS: The lungs appear clear of acute infiltrate. The heart is mildly to moderately enlarged. Postsurgical changes involve the chest. IMPRESSION: No acute abnormalities displayed
[2018-03-17 14:19] LABS: Absolute Lymphocytes (CBC) 1.2 K/uL (0.7-4.9); Absolute Monocytes 0.9 K/uL (0.1-1.3); Absolute Neutrophil 2.7 K/uL (1.8-8.0); Basophils % 0.9 % (0-1.3); Eosinophils % 1.3 % (0-4.4); Lymphocytes % 24.8 % (15.3-44.8); MCH 27.9 pg (27.0-35.0); MCV 86.1 fL (80-100); MPV 9.2 fL (7.6-11.3); Monocytes % 18.8 % (3.3-12.3); RBC Red Blood Cell Count 4.06 M/uL (3.86-4.86)
[2018-03-17 14:29] LABS: Protime INR 1.08
[2018-03-17 15:07] LABS: ALT/SGPT 11 U/L (12-78); Albumin 3.5 g/dL (3.4-5.0); Alkaline Phosphatase 132 U/L (45-117); BUN Blood Urea Nitrogen 90 mg/dL (7-18); Bicarbonate 21 mmol/L (21-32); Bilirubin Direct 0.1 mg/dL (0-0.2); Bilirubin Total 0.3 mg/dL (0.2-1.0); CKMB Creatine Kinase MB 2.4 ng/mL (0.3-3.6); Creatine Phosphokinase 76 U/L (26-192); Glucose Level 98 mg/dL (74-106); Protein, Total 7.5 g/dL (6.4-8.2); Sodium Level 135 mmol/L (136-145); Troponin (Emerg Dept Use Only) 0.05 ng/mL (0.0-0.045)
[2018-03-17 15:13] LABS: AST/SGOT 15 U/L (15-37); NT PRO-BNP > 35000 pg/mL (<125)
[2018-03-17 15:14] LABS: Magnesium 2.4 mg/dL (1.8-2.4)
[2018-03-17 15:15] LABS: Potassium 5.9 mmol/L (3.5-5.1)
--- NOTE | 2018-03-17 15:39 | ER ---
Nurse's Notes [facility] Name: Michelle Ochoa Age: 57 yrs Sex: Female : 1960 Arrival Date: 03/17/2018 Time: 11:44 Bed 23 Private MD: Diagnosis: Hyperkalemia;Acute on chronic systolic (congestive) heart failure Presentation: 03/17 11:49 Presenting complaint: Patient states: "I missed 2 weeks of dialysis because my ride aj didn't show up. I had my girlfriend bring me to the hospital today because I knew they would keep me and dialyze me instead of going to my appointment this morning." Awake and alert in NAD. Transition of care: patient was not received from another setting of care. Onset of symptoms was March 17, 2018. Risk Assessment: Do you want to hurt yourself or someone else? Patient reports no desire to harm self or others. Initial Sepsis Screen: Does the patient meet any 2 criteria? No. Patient's initial sepsis screen is negative. Does the patient have a suspected source of infection? No. Patient's initial sepsis screen is negative. Care prior to arrival: None. 11:49 Method Of Arrival: Wheelchair aj 11:49 Acuity: ZAID 3 aj Triage Assessment: 11:51 General: Appears in no apparent distress. comfortable, Behavior is calm, cooperative, aj appropriate for age. Pain: Denies pain. Neuro: Level of Consciousness is awake, alert, obeys commands, Oriented to person, place, time, situation, Appropriate for age. Cardiovascular: Dialysis shunt: in the left bicep and left antecubital area. Respiratory: Airway is patent Respiratory effort is even, unlabored, Respiratory pattern is regular, symmetrical. Derm: Skin is intact, is healthy with good turgor, Skin is pink, warm \\T\\ dry. normal. Historical: - Allergies: 11:51 No Known Allergies; aj - Home Meds: 11:51 Ambien 5 mg Oral tab 1 tab once daily [Active]; Ativan 1 mg Oral tab 1 tab [Active]; aj clonidine HCl 0.2 mg Oral tab 1 tab 2 times per day [Active]; Coreg 12.5 mg Oral tab 1 tab 2 times per day [Active]; famotidine 40 mg Oral tab 1 tab every 6 hours [Active]; isosorbide mononitrate 30 mg Oral Tb24 1 tab once daily [Active]; Lasix 40 mg Oral tab 1 tab once daily [Active]; omeprazole 20 mg Oral cpDR 1 cap once daily [Active]; Raina-Terry 0.8 mg Oral tab [Active]; Renvela 800 mg Oral tab 1 tab 3 times per day [Active]; trazodone 50 mg Oral tab 1 tab 3 times per day [Active]; Zoloft 50 mg Oral tab 1 tab once daily [Active]; - PMHx: 11:51 Anemia; CVA; Dialysis- T/Th/Mon; ENDOCARDITIS; Hypertension; kidney failure; Renal aj Disease; PATRICK; - PSHx: 11:51 ; Cholecystectomy; YOLANDA fistula; aj - Immunization history:: Adult Immunizations up to date. - Social history:: Smoking status: Patient uses tobacco products, smokes one-half pack cigarettes per day, Patient uses alcohol, on a daily basis. - Ebola Screening: : Patient negative for fever greater than or equal to 101.5 degrees Fahrenheit, and additional compatible Ebola Virus Disease symptoms Patient denies exposure to infectious person Patient denies travel to an Ebola-affected area in the 21 days before illness onset No symptoms or risks identified at this time. Screenin:00 Abuse screen: Denies threats or abuse. Nutritional screening: No deficits noted. tl3 Tuberculosis screening: No symptoms or risk factors identified. Fall Risk None identified. Assessment: 13:00 General: Appears in no apparent distress. comfortable, well groomed, well developed. tl3 Pain: Denies pain. Neuro: Level of Consciousness is awake, alert, obeys commands, Oriented to person, place, time, situation, Appropriate for age. Cardiovascular: Heart tones S1 S2 present Patient's skin is warm and dry. Respiratory: Airway is patent Respiratory effort is even, unlabored, Respiratory pattern is regular, symmetrical. GI: No signs and/or symptoms were reported involving the gastrointestinal system. : No signs and/or symptoms were reported regarding the genitourinary system. Urine is clear. EENT: No signs and/or symptoms were reported regarding the EENT system. Derm: No signs and/or symptoms reported regarding the dermatologic system. Musculoskeletal: No signs and/or symptoms reported regarding the musculoskeletal system. 14:00 Reassessment: Patient appears in no apparent distress at this time. No changes from tl3 previously documented assessment. Patient and/or family updated on plan of care and expected duration. Pain level reassessed. Patient is alert, oriented x 3, equal unlabored respirations, skin warm/dry/pink. no needs at this time. Vital Signs: 11:51 BP 138 / 65; Pulse 59; Resp 19; Temp 98.2; Pulse Ox 96% on R/A; Weight 65.77 kg; Height aj 5 ft. 0 in. (152.40 cm); 13:00 BP 152 / 76; Pulse 59; Resp 18; Pulse Ox 97% on R/A; tl3 14:00 BP 172 / 88; Pulse 59; Resp 18; Pulse Ox 98% on R/A; tl3 17:00 BP 142 / 77; Pulse 52; Resp 18; Pulse Ox 98% ; tl3 11:51 Body Mass Index 28.32 (65.77 kg, 152.40 cm) aj ED Course: 11:44 Patient arrived in ED. mr 11:50 Triage completed. aj 11:51 Arm band placed on left wrist. Patient placed in waiting room, Patient notified of wait aj time. 13:00 Patient has correct armband on for positive identification. Placed in gown. Bed in low tl3 position. Call light in reach. Side rails up X2. Pulse ox on. NIBP on. Door closed. Noise minimized. Lights dimmed. Warm blanket given. 13:00 No provider procedures requiring assistance completed. Inserted saline lock: 24 gauge tl3 in right hand, using aseptic technique. 13:00 Urine collected: clean catch specimen, clear. tl3 13:08 Daniel Colindres PA is PHCP. [facility] 13:08 Miguelito Nino MD is Attending Physician. [facility] 13:12 Regina Jimenez, SAÚL is Primary Nurse. tl3 13:41 EKG done, by ED staff, reviewed by Daniel BERNAL. jb1 13:50 X-ray completed. Portable x-ray completed in exam room. Patient tolerated procedure bb2 well. 13:51 XRAY Chest (1 view) In Process Unspecified. EDMS 15:38 John Diane MD is Hospitalizing Provider. m 17:00 Patient admitted, IV remains in place. tl3 Administered Medications: 15:27 CANCELLED (other intervention): Kayexalate 30 grams PO once [facility] 15:59 Drug: Kayexalate 15 grams Route: PO; tl3 17:01 Follow up: Response: No adverse reaction tl3 Outcome: 15:38 Decision to Hospitalize by Provider. [facility] 16:59 Admitted to Tele accompanied by tech, via wheelchair, with chart, Report called to 3 SAÚL [place] 16:59 Condition: stable 16:59 Instructed on the need for admit, Demonstrated understanding of instructions. 17:48 Patient left the ED. mg2 Signatures: Dispatcher [employer] EDDaniel Fernandez jb1 Cherri Vallejo, RN RN Daniel Mares PA PA [facility] Fide Henderson mr [place], Lisandra bb2 Regina Jimenez, SAÚL RN tl3 Yong Villanueva, SAÚL RN mg2
--- NOTE | 2018-03-17 15:39 | EDPHYS ---
Physician Documentation [facility] Name: Michelle Ochoa Age: 57 yrs Sex: Female : 1960 Arrival Date: 03/17/2018 Time: 11:44 Bed 23 Private MD: ED Physician Miguelito Nino HPI: 03/17 13:27 This 57 yrs old Black Female presents to ER via Wheelchair with complaints of Dialysis. jmm 13:27 The patient has shortness of breath at rest. jmm 13:27 Onset: The symptoms/episode began/occurred gradually, 2 week(s) ago. Duration: The jmm symptoms are continuous. The patient's shortness of breath is aggravated by nothing, is alleviated by nothing. Associated signs and symptoms: Pertinent negatives: chest pain, fever. This is a 57 year old female with a history of anemia, CVA, ESRD that presents to the ED with shortness of breath. Patient states she has missed dialysis for the past 2 weeks. Patient denies abdominal pain, chest pain. . Historical: - Allergies: 11:51 No Known Allergies; aj - Home Meds: 11:51 Ambien 5 mg Oral tab 1 tab once daily [Active]; Ativan 1 mg Oral tab 1 tab [Active]; aj clonidine HCl 0.2 mg Oral tab 1 tab 2 times per day [Active]; Coreg 12.5 mg Oral tab 1 tab 2 times per day [Active]; famotidine 40 mg Oral tab 1 tab every 6 hours [Active]; isosorbide mononitrate 30 mg Oral Tb24 1 tab once daily [Active]; Lasix 40 mg Oral tab 1 tab once daily [Active]; omeprazole 20 mg Oral cpDR 1 cap once daily [Active]; Raina-Terry 0.8 mg Oral tab [Active]; Renvela 800 mg Oral tab 1 tab 3 times per day [Active]; trazodone 50 mg Oral tab 1 tab 3 times per day [Active]; Zoloft 50 mg Oral tab 1 tab once daily [Active]; - PMHx: 11:51 Anemia; CVA; Dialysis- T/Th/Sat; ENDOCARDITIS; Hypertension; kidney failure; Renal aj Disease; PATRICK; - PSHx: 11:51 ; Cholecystectomy; YOLANDA fistula; aj - Immunization history:: Adult Immunizations up to date. - Social history:: Smoking status: Patient uses tobacco products, smokes one-half pack cigarettes per day, Patient uses alcohol, on a daily basis. - Ebola Screening: : Patient negative for fever greater than or equal to 101.5 degrees Fahrenheit, and additional compatible Ebola Virus Disease symptoms Patient denies exposure to infectious person Patient denies travel to an Ebola-affected area in the 21 days before illness onset No symptoms or risks identified at this time. ROS: 13:27 Constitutional: Negative for fever, chills, and weight loss, Cardiovascular: Negative jmm for chest pain, palpitations, and edema. 13:27 Back: Negative for injury and pain, : Negative for injury, bleeding, discharge, and swelling, MS/Extremity: Negative for injury and deformity, Neuro: Negative for headache, weakness, numbness, tingling, and seizure, Psych: Negative for depression, anxiety, suicide ideation, homicidal ideation, and hallucinations. 13:27 Respiratory: Positive for shortness of breath. 13:27 All other systems are negative. Exam: 13:27 Head/Face: atraumatic. Neck: Trachea midline, Supple Chest/axilla: Normal chest wall jmm appearance and motion. Cardiovascular: Regular rate and rhythm. No edema appreciated Respiratory: Normal respirations, no respiratory distress appreciated Abdomen/GI: Non distended, soft Back: Normal ROM Skin: General appearance color normal MS/ Extremity: Moves all extremities, no obvious deformities appreciated, no edema noted to the lower extremities Neuro: Awake and alert, normal gait Psych: Behavior is normal, Mood is normal, Patient is cooperative and pleasant 13:27 Constitutional: The patient appears in no acute distress, alert, awake. Vital Signs: 11:51 BP 138 / 65; Pulse 59; Resp 19; Temp 98.2; Pulse Ox 96% on R/A; Weight 65.77 kg; Height aj 5 ft. 0 in. (152.40 cm); 13:00 BP 152 / 76; Pulse 59; Resp 18; Pulse Ox 97% on R/A; tl3 14:00 BP 172 / 88; Pulse 59; Resp 18; Pulse Ox 98% on R/A; tl3 17:00 BP 142 / 77; Pulse 52; Resp 18; Pulse Ox 98% ; tl3 11:51 Body Mass Index 28.32 (65.77 kg, 152.40 cm) aj MDM: 13:25 Patient medically screened. [facility] 15:35 Data reviewed: vital signs, nurses notes, lab test result(s), EKG, radiologic studies. [facility] Data interpreted: Pulse oximetry: Interpretation: normal. Counseling: I had a detailed discussion with the patient and/or guardian regarding: the historical points, exam findings, and any diagnostic results supporting the discharge/admit diagnosis, radiology results, the need for further work-up and treatment in the hospital. ED course: I discussed the patient with Dr. Diane whom accepted admission. I discussed the patient with Dr. Miller whom will consult on admission for dialysis. . 17:25 Data interpreted: Pulse oximetry: on room air is 98 %. Interpretation:. [facility] 03/17 13:08 Order name: Basic Metabolic Panel; Complete Time: 15:18 [facility] 03/17 13:08 Order name: CBC with Diff; Complete Time: 14:40 [facility] 03/17 13:08 Order name: Ckmb; Complete Time: 15:18 [facility] 03/17 13:08 Order name: CPK; Complete Time: 15:18 [facility] 03/17 13:08 Order name: LFT's; Complete Time: 15:18 [facility] 03/17 13:08 Order name: Magnesium; Complete Time: 15:18 [facility] 03/17 13:08 Order name: NT PRO-BNP; Complete Time: 15:18 [facility] 03/17 13:08 Order name: PT-INR; Complete Time: 14:40 [facility] 03/17 13:08 Order name: Ptt, Activated; Complete Time: 14:40 [facility] 03/17 13:08 Order name: Troponin (emerg Dept Use Only); Complete Time: 15:18 [facility] 03/17 13:08 Order name: XRAY Chest (1 view); Complete Time: 14:04 [facility] 03/17 13:49 Order name: Urine Dipstick--Ancillary (enter results); Complete Time: 16:02 03/17 13:08 Order name: EKG; Complete Time: 13:09 [facility] 03/17 13:08 Order name: Cardiac monitoring; Complete Time: 15:28 [facility] 03/17 13:08 Order name: EKG - Nurse/Tech; Complete Time: 15:28 [facility] 03/17 13:08 Order name: IV Saline Lock; Complete Time: 15:28 [facility] 03/17 13:08 Order name: Labs collected and sent; Complete Time: 15:28 [facility] 03/17 13:08 Order name: O2 Per Protocol; Complete Time: 15:28 [facility] 03/17 13:08 Order name: O2 Sat Monitoring; Complete Time: 15:28 [facility] 03/17 13:08 Order name: Urine Dipstick-Ancillary (obtain specimen); Complete Time: 15:28 [facility] Administered Medications: 15:27 CANCELLED (other intervention): Kayexalate 30 grams PO once [facility] 15:59 Drug: Kayexalate 15 grams Route: PO; tl3 17:01 Follow up: Response: No adverse reaction tl3 Disposition: 03/17/18 15:38 Hospitalization ordered by John Diane for Observation. Preliminary diagnosis are Hyperkalemia, Acute on chronic systolic (congestive) heart failure. - Bed requested for Telemetry/MedSurg (observation). - Status is Observation. mg2 - Condition is Stable. - Problem is new. - Symptoms are unchanged. UTI on Admission? No Addendum: 03/19/2018 07:54 Co-signature as Attending Physician, Miguelito Nino MD I agree with the assessment and w a plan of care. Signatures: Dispatcher [employer] Anny Sawyer RN RN Cherri Osorio RN RN Daniel Mares PA PA [facility] Miguelito Nino MD MD wa Lowrey, Tammy, RN RN tl3 Yong Villanueva RN RN mg2 Corrections: (The following items were deleted from the chart) 03/17 15:27 15:18 Kayexalate 30 grams PO once ordered. [facility] 16:37 15:38 Hospitalization Ordered by John Diane MD for Observation. Preliminary dw diagnosis is Hyperkalemia; Acute on chronic systolic (congestive) heart failure. Bed requested for Telemetry/MedSurg (observation). Status is Observation. Condition is Stable. Problem is new. Symptoms are unchanged. UTI on Admission? No. [facility] 17:48 16:37 03/17/2018 15:38 Hospitalization Ordered by John Diane MD for Observation. mg2 Preliminary diagnosis is Hyperkalemia; Acute on chronic systolic (congestive) heart failure. Bed requested for Telemetry/MedSurg (observation). Status is Observation. Condition is Stable. Problem is new. Symptoms are unchanged. UTI on Admission? No. dw
[2018-03-17 15:57] LABS: Urine Blood TRACE (NEG); Urine Glucose NEGATIVE (NEG); Urine Protein 2+ (NEG); Urine Specific Gravity 1.015 (1.005-1.030)
[2018-03-17] MEDS ORDERED: SOD POLYSTYREN SUL 15 GM/60 ML UCUP ONE (16:02)
[2018-03-17] MEDS ORDERED: ONDANSETRON 4 MG/2 ML VIAL IV PRN (17:34)
[2018-03-17] MEDS ORDERED: HYDRALAZINE HCL 20 MG/ML VIAL IV ONE (17:34)
[2018-03-17] MEDS ORDERED: ACETAMINOPHEN 500 MG TAB PO PRN (17:34)
[2018-03-17] MEDS ORDERED: PNEUMOCOCCAL VACCINE 0.5 ML IMVAC ONE (18:00)
[2018-03-17 18:05] VITALS: BMI 28.2
[2018-03-17] MEDS ORDERED: ALBUTEROL INHALER 60 PUFF/8 GM IH PRN (18:12)
[2018-03-17 18:42] LABS: CKMB Creatine Kinase MB 2.6 ng/mL (0.3-3.6); Troponin I 0.04 ng/mL (0.0-0.045)
[2018-03-17] MEDS: IPRATROPIUM BROM 0.5MG/2.5ML NEB SCH (20:10)
[2018-03-17] MEDS: ALBUTEROL 2.5 MG/3 ML NEB SOL NEB SCH (20:10)
[2018-03-17] MEDS: cloNIDine HCl 0.1 MG TAB PO SCH (20:49)
[2018-03-17] MEDS: CARVEDILOL 12.5 MG TAB PO SCH (20:49)
[2018-03-17] MEDS: HOME MED 1 EA UNK (Fluticasone/Salmeterol [Advair 250-50 Diskus] 1 PUFF) IN SCH (20:49)
[2018-03-17] MEDS ORDERED: TRAZODONE 50 MG TABLET PO PRN (21:00)
[2018-03-18] MEDS: ALBUTEROL 2.5 MG/3 ML NEB SOL NEB SCH ×3 (02:08→14:00)
[2018-03-18] MEDS: IPRATROPIUM BROM 0.5MG/2.5ML NEB SCH ×3 (02:08→14:00)
--- NOTE | 2018-03-18 02:39 | HP ---
Date of Admission: 03/17/2018 Reason For Admission: Missed dialysis for 2 weeks. History Of Present Illness: This is a 57-year-old female with past medical history significant for multiple medical problems including COPD, emphysema, pulmonary hypertension, history of CVA with hep C, end-stage renal disease, noncompliance, CHF, who did not have dialysis for the last 2 weeks. She had come today to emergency room because she had a ride. According to her, the ride is not picking her after dialysis. She did not have any chest pain. No shortness of breath. No abdominal pain. In the ER, she was evaluated. Her potassium was elevated at 5.9, and she was admitted for dialysis. Currently, she is lying in bed. She looks fine. Her blood pressure was 200/100. She will be given 20 of hydralazine IV. Review of Systems: Otherwise as below. Past Medical History: Significant for pulmonary hypertension, COPD, CVA, hepatitis C, end-stage renal disease, CHF, noncompliance. Past Surgical History: Significant for cholecystectomy, , open heart surgery. Social History: Apparently, she is single, currently she is not working. She does drink socially 3 times a week. She does not smoke or use any drugs. Family History: Significant for father of gunshot, mother of heart attack. Home Medications: Obtained from her previous admission and treatment for Lasix 40 once a day, Imdur 30 twice a day. Advair Diskus twice a day, Altace 5 mg once a day. Clonidine 0.2 mg twice a day. Review of Systems: Denies any fever, chills, night sweats, dizziness, lightheaded, headache, blurred vision. There was no change in weight or appetite. She did not have any cough, sputum, chest pain, palpitations, PND, orthopnea, dyspnea on exertion , lower extremity edema. No nausea, vomiting, abdominal pain, change in bowel movement, diarrhea, constipation, dysuria, frequency, urgency, hematuria. There is no history of depression, anxiety, seizure, or stroke. Physical Examination: Vital Signs: Currently vital signs, blood pressure 200/100, respiratory rate 18 , pulse 59, temperature of 98.2. General: The patient is alert and oriented x3. Does not look in any distress. HEENT: Atraumatic, normocephalic. PERRLA. Oral mucosa is moist. Neck: Supple. No JVD. No carotid bruits. Chest: Clear to auscultation. Good air entry with fine crackles in the bases. Heart: Regular rate and rhythm. S1, S2 normal. No gallop or murmur. Abdomen: Soft, nontender. No masses. No hepatosplenomegaly. Positive bowel sounds. Extremities: No clubbing, cyanosis, or edema. No calf tenderness. Neurologic: Grossly intact. Cranial nerve exam 2 through 12 intact. Normal sensation. Normal reflexes. Normal muscle strength. Laboratory Data: CBC is normal. Hemoglobin 11.3. Chemistry within normal except for sodium 135, potassium 5.9, creatinine 12.2, BUN 90, calcium 7.9, alkaline phosphatase 132, troponin 0.05. BNP higher thatn 20k Chest x-ray is negative. Assessment And Plan: This is a 57-year-old female with extensive history of noncompliance who presents today for missed dialysis for 2 weeks, and found to have elevated potassium of 5.9. 1. Hyperkalemia secondary to missing dialysis. We will proceed with hemodialysis in a.m. We will admit the patient. She already received calcium gluconate in the emergency room, I will check her potassium tonight, and if still high, we will give her additional dose of Kayexalate. 2. History of congestive heart failure. The patient is not volume overloaded on x-ray, but she is going to get dialysis tomorrow. 3. Hypertension and malignant. We will start her on IV hydralazine as needed. Resume her home medication as soon as we will obtain a copy from the pharmacy. 4. History of chronic obstructive pulmonary disease. She will be on inhalers and Advair Diskus. 5. Symptomatic medications for pain if any. LETICIA/ROBBIE Voice ID: [id number] MTDD
[2018-03-18 03:16] LABS: CKMB Creatine Kinase MB 2.1 ng/mL (0.3-3.6)
[2018-03-18 05:37] LABS: Absolute Lymphocytes (CBC) 1.4 K/uL (0.7-4.9); Absolute Monocytes 0.8 K/uL (0.1-1.3); Absolute Neutrophil 2.1 K/uL (1.8-8.0); Eosinophils % 1.4 % (0-4.4); Hematocrit 33.1 % (36.0-45.0); Lymphocytes % 31.6 % (15.3-44.8); MPV 8.9 fL (7.6-11.3); Monocytes % 18.2 % (3.3-12.3); RBC Red Blood Cell Count 3.89 M/uL (3.86-4.86)
[2018-03-18 06:08] LABS: Blood Morphology Comment NOT SEEN (NOT SEEN); Platelet Estimate ADEQ; Urine White Blood Cell Casts OK
[2018-03-18 07:09] LABS: Albumin 3.2 g/dL (3.4-5.0); Bilirubin Total 0.4 mg/dL (0.2-1.0); Potassium 5.4 mmol/L (3.5-5.1); Protein, Total 6.8 g/dL (6.4-8.2)
[2018-03-18] MEDS ORDERED: FUROSEMIDE 40 MG TABLET PO SCH (09:00)
[2018-03-18] MEDS ORDERED: RAMIPRIL 5 MG CAP PO SCH (09:00)
[2018-03-18] MEDS: HOME MED 1 EA UNK (Fluticasone/Salmeterol [Advair 250-50 Diskus] 1 PUFF) IN SCH (09:00)
[2018-03-18] MEDS ORDERED: ISOSORBIDE MONO SR 30 MG TAB PO SCH ×2 (09:00)
[2018-03-18] MEDS: cloNIDine HCl 0.1 MG TAB PO SCH (09:29)
[2018-03-18] MEDS: CARVEDILOL 12.5 MG TAB PO SCH (09:30)
[2018-03-18 09:54] LABS: CKMB Creatine Kinase MB 1.9 ng/mL (0.3-3.6)
[2018-03-18 13:38] VITALS: O2SAT 97
[2018-03-18 17:52] VITALS: BP 152/75; TEMP 97.7
--- NOTE | 2018-03-19 06:56 | EKG ---
Test Date: 2018-03-17 Test Time: 13:27:16 Delivery Engineer: NEGRA MEASUREMENT RESULTS: Intervals: Rate: 57 CT: 162 QRSD: 78 QT: 478 QTc: 465 [place]: P: 23 CT: 162 QRS: -6 T: 181 INTERPRETIVE STATEMENTS: Sinus bradycardia Anteroseptal infarct, age undetermined T wave abnormality, consider lateral ischemia Abnormal ECG Compared to ECG 01/24/2018 12:54:17 Sinus arrhythmia no longer present Prolonged QT interval no longer present Myocardial infarct finding still present T-wave abnormality still present Possible ischemia still present Electronically Signed On 03-19-18 06:51:46 CDT by Bam Terry
--- NOTE | 2018-03-19 10:15 | DS ---
Date of Discharge: 03/18/2018 Discharge Diagnoses: 1.Noncompliant with hemodialysis status post hemodialysis. 2.Hyperkalemia, improved. 3.Hypertension. 4.Noncompliance. 5.Anemia of chronic renal insufficiency. 6.Congestive heart failure history with volume overload. 7.Chronic obstructive pulmonary disease, emphysema. Consult: Nephrology. Procedure: Hemodialysis and chest x-ray. History Of Present Illness: Please refer to my history and physical exam done yesterday. Hospital Course: Initially, the patient presented to the emergency room after hemodialysis for 2 wee ks due to the lack of transportation. On labs, her potassium was 5.9, chest x-ray was unremarkable f or pulmonary edema, Nephrology consulted and the patient for hemodialysis. The patient will get hem odialysis this afternoon and if Nephrology is okay, she will be discharged after hemodialysis. We wi ll need to obtain social work consult before discharge to make sure patient after hospitalization com e back to her dialysis next week. The patient was advised strongly to follow up strictly with her ne phrologist as missing dialysis can jeopardize her lifestyle. The patient's blood pressure was elevat ed but she was started on her home medication and her blood pressure was stable while inpatient. She is currently feeling well and she wants to go home after dialysis. Discharge Condition: Stable. Discharge Diet: Renal. Discharge Followup: Primary care physician this week. Follow up with Nephrology for dialysis 3 time s a week. Discharge Physical Examination: Vital signs: Blood pressure 156/75, respiratory rate 16, pulse 61, temp is 98.4. General: The patient is alert and oriented x3. Does not look in any distressed. HEENT: Atraumatic, normocephalic. PERRLA. Oral mucosa is moist. Neck: Supple. No JVD. No carotid bruit. Chest: Clear to auscultation. Good air entry. Heart: Regular rate and rhythm. S1, S2 normal. No gallop or murmur. Abdomen: Soft, nontender. No masses. No hepatosplenomegaly. Positive bowel sounds. Extremities: No clubbing, cyanosis, or edema. No calf tenderness. Neurologic: Grossly intact. Discharge Medications: Albuterol inhaler 3 times a day as needed, Coreg 12.5 mg twice a day, Advair Diskus inhaler twice a day, Lasix 40 mg once a day, Imdur 30 mg once a day, trazodone 100 mg at [facility]. LETICIA/ROBBIE Voice ID: [id number] Report ID: [id number]
== END 2018-03-18 18:58 | disposition home or self-care (01) ==
LOC: ER 11:40 → ERHOLD 15:58 → 4TH 17:01
PROVIDERS: ADMIT Internal Medicine; ATTEND Internal Medicine
PROC: 5A1D70Z Performance of Urinary Filtration, Intermittent, Less than 6 Hours Per Day (ICD-10-PCS; principal; 2018-03-18)
DX: E87.5 Hyperkalemia (principal); I13.2 Hypertensive heart and chronic kidney disease with heart failure and with stage 5 chronic kidney disease, or end stage renal disease; N18.6 End stage renal disease; I50.9 Heart failure, unspecified; J44.9 Chronic obstructive pulmonary disease, unspecified; Z99.2 Dependence on renal dialysis; Z86.73 Personal history of transient ischemic attack (TIA), and cerebral infarction without residual deficits; Z91.15 Patient's noncompliance with renal dialysis; Z86.19 Personal history of other infectious and parasitic diseases; D63.1 Anemia in chronic kidney disease
CPT/HCPCS: 36415; 71045; 80048; 80053; 80076; 81003; 82550 ×4; 82553 ×4; 83735; 83880; 84484 ×2; 85025 ×2; 85610; 85730; 90935; 93005; 94640; 99285; G0257; G0378 ×2; J0360

== ENCOUNTER 2018-05-26 23:14 | Observation (INO) | payer OTHER ==
--- OUTSIDE RECORDS SUMMARY | 2018-05-26 23:16 | XMS REPORT | Continuity of Care Document ---
:1960 Author Organization Interface Problems Problem Status Onset Classification Date Comments Source Date Reported NUMBNESS Active 01/09/[address] ISCHEMIC STROKE Active 01/09/[address] Methicillin Active 06/11/20 Problem 01/13/2017 Problem resistant 09 added by [facility] Staphylococcus Discern [facility] aureus<sup>2, Expert. 3</sup> Final: Cerebral 01/13/2017 infarction, [facility] unspecified [facility] Bipolar disorder Resolved Problem 01/13/2017 [facility] CKD (<span Resolved Problem 01/13/2017 ID="[id number]" [facility] >Confirmed</span> [facility] ) COPD (<span Resolved Problem 01/13/2017 ID="[id number]"> [facility] Confirmed</span>) [facility] CVA (<span Resolved Problem 01/13/2017 ID="[id number]" [facility] >Confirmed</span> [facility] ) Dialysis Resolved Problem 01/13/2017 started patient<sup>1</najera approx 2013 [facility] Resolved Problem 01/13/2017 disease [facility] Heart attack Resolved Problem 01/13/2017 [facility] Hepatitis C Resolved Problem 01/13/2017 [facility] HTN (<span Resolved Problem 01/13/2017 ID="[id number]"> [facility] Confirmed</span>) [facility] Simple obesity Active Problem 01/13/2017 [facility] Smoker Resolved Problem 01/13/2017 [facility] ILLNESS, Active UNSPECIFIED [facility] CEREBRAL Active INFARCTION, [facility] Medications Medication Details Route Status Patient Ordering Order Source Instructions Provider Date atorvastatin 10 mg, 1 tab, No Longer Route: PO, Drug Active 2016 [facility] form: TAB, [facility] Bedtime, Dosing Weight 76.007, kg, Start date: 01/09/17 21:00:00 CDT, Duration: 30 day, Stop date: 02/07/17 21:00:00 CDTNotes: (Same As: Lipitor) aspirin 81 mg 81 mg=1 tab, Active tablet, enteric PO, Daily, # 30 2016 [facility] coated tab, 0 [facility] Refill(s) atorvastatin 10 10 mg=1 tab, Active mg oral tablet PO, Bedtime, # 2017 [facility] 30 tab, 0 [facility] Refill(s) heparin 5,000 unit, 1 No Longer mL, Route: Active 2016 [facility] SUB-Q, Drug [facility] form: INJ, Q8H, Start date: 01/09/17 16:00:00 CDT, Duration: 30 day, Stop date: 02/08/17 8:00:00 CDTNotes: porcine heparin gabapentin 100 300 mg, 1 cap, No Longer MG Oral Capsule Route: PO, Drug Active 2016 [facility] form: CAP, City Bedtime, Dosing Weight 76.007, kg, Start date: 01/08/17 21:00:00 CDT, Duration: 30 day, Stop date: 02/06/17 21:00:00 CDTNotes: (Same as: Neurontin) Saline Flush 10 ml, Route: Inactive 0.9% IVP, Drug Form: 2016 [facility] INJ, Dosing [facility] Weight 76.007, kg, Q12H, Start date: 01/08/17 21:00:00 CDT, Duration: 30 day, Stop date: 02/07/17 9:00:00 CDT Hydroxyzine 50 mg, 2 tab, No Longer Route: PO, Drug Active 2016 [facility] form: TAB, TID, [facility] Dosing Weight 76.007, kg, Start date: 01/08/17 19:00:00 CDT, Duration: 30 day, Stop date: 02/07/17 17:00:00 CDTNotes: (Same as: Atarax) Avoid alcohol. ARIPiprazole 10 mg, 2 tab, No Longer Route: PO, Drug Active 2016 [facility] form: TAB, City Daily, Dosing Weight 76.007, kg, Start date: 01/08/17 19:00:00 CDT, Duration: 30 day, Stop date: 02/07/17 9:00:00 CDTNotes: Non-Formulary Drug. (Same as: Abilify) Amlodipine 10 mg, 2 tab, No Longer Route: PO, Drug Active [address] [place] [address] form: TAB, [facility] Daily, Dosing Weight 76.007, kg, Start date: 01/08/17 18:26:00 CDT, Duration: 30 day, Stop date: 02/07/17 9:00:00 CDTNotes: (Same as: Norvasc) Sertraline 50 mg, 1 tab, No Longer Route: PO, Drug Active 2016 [facility] form: TAB, [facility] Daily, Dosing Weight 76.007, kg, Start date: 01/08/17 18:25:00 CDT, Duration: 30 day, Stop date: 02/07/17 9:00:00 CDTNotes: (Same as: Zoloft) Clonidine 0.2 mg, 2 tab, No Longer Hydrochloride Route: PO, Drug Active 2016 [facility] Oral form: TAB, TID, [facility] Tablet Dosing Weight 76.007, kg, Start date: 01/08/17 18:24:00 CDT, Duration: 30 day, Stop date: 02/07/17 17:00:00 CDTNotes: (Same As: Catapres) 200 ACTUAT 2.49 mg, 3 mL, No Longer Albuterol 0.09 Route: NEB, Active 2016 [facility] MG/ACTUAT Drug Form: [facility] Metered Dose SOLN, Dosing Inhaler [ProAir Weight 76.007, HFA] kg, RQID, PRN Wheezing, Start date: 01/08/17 18:00:00 CDT, Duration: 30 day, Stop date: 02/07/17 17:59:00 CDTNotes: SEE RT DOCUMENTATION (Same as: Proventil) Hydralazine 10 mg, 0.5 mL, No Longer Route: IV, Drug Active 2016 [facility] form: INJ, Q4H, [facility] Dosing Weight 76.007, kg, PRN Elevated BP, Start date: 01/08/17 17:42:00 CDT, Duration: 30 day, Stop date: 02/07/17 17:41:00 CDTNotes: (Same as: Apresoline) Push over 5 minutes Clonidine 0.1 mg=0.5 tab, Active Hydrochloride PO, TID, 0 2016 [facility] 0.2 MG Oral Refill(s) [facility] Tablet ARIPiprazole 10 10 mg=1 tab, Active mg oral tablet PO, Daily, # 30 2016 [facility] tab, 0 [facility] Refill(s) Amlodipine 10 mg, PO, Active Daily, 0 2016 [facility] Refill(s) [facility] sertraline 50 50 mg=1 tab, Active mg oral tablet PO, Daily, 0 2016 [facility] Refill(s) [facility] gabapentin 100 300 mg=3 cap, Active MG Oral Capsule PO, Bedtime, 0 2016 [facility] Refill(s) [facility] Hydroxyzine 50 mg, PO, TID, Active 0 Refill(s) 2016 [facility] Enoxaparin 30 mg, 0.3 mL, No Longer Route: SUB-Q, Active 2016 [facility] Drug form: INJ, [facility] [id number], Dosing Weight 76.007, kg, Start date: 01/08/17 17:00:00 CDT, Stop date: 02/06/17 17:00:00 CDTNotes: (Same as: Lovenox) aspirin 81 mg 81 mg, 1 tab, No Longer tablet, enteric Route: PO, Drug Active 2016 [facility] coated form: ECTAB, [facility] Daily, Dosing Weight 76.007, kg, Start date: 01/08/17 16:49:00 CDT, Duration: 30 day, Stop date: 02/07/17 9:00:00 CDTNotes: Do not crush or chew. (Same As: Ecotrin) Famotidine 20 mg, 1 tab, No Longer Route: PO, Drug Active 2016 [facility] form: TAB, [facility] Q12H, Dosing Weight 76.007, kg, Start date: 01/08/17 16:49:00 CDT, Duration: 30 day, Stop date: 02/07/17 9:00:00 CDTNotes: (Same as: Pepcid) Sodium Chloride 25 mL, Route: No Longer 0.9% IV IVP, Start Active 2016 [facility] date: 01/08/17 [facility] 16:48:00 CDT, Duration: 30 day, Stop date: 02/07/17 16:47:00 CDT, PRN Line Flush BD Normal 10 mL, Route: No Longer Saline Flush IVP, Drug Form: Active 2016 [facility] INJ, PRN, PRN [facility] Line Flush, Start date: 01/08/17 16:48:00 CDT, Duration: 30 day, Stop date: 02/07/17 16:47:00 CDTNotes: (Same as: BD Posiflush) BD Normal 5 mL, Route: No Longer Saline Flush IVP, Drug Form: Active 2016 [facility] INJ, PRN, PRN [facility] Line Flush, Start date: 01/08/17 16:47:00 CDT, Duration: 30 day, Stop date: 02/07/17 16:46:00 CDTNotes: (Same as: BD Posiflush) Saline Flush 10 ml, Route: Inactive 0.9% IVP, Drug Form: 2016 [facility], Dosing [facility] Weight 76.007, kg, PRN, PRN Line Flush, Start date: 01/08/17 16:41:00 CDT, Duration: 30 day, Stop date: 02/07/17 16:40:00 CDT Allergies, Adverse Reactions, Alerts Substance Category Reaction Severity Reaction Status Date Comments Source type Reported Immunizations Immunization Date Site Status Last Comments Source Given Updated pneumococcal Right completed Jimenez [facility] 13-valent vaccine 7 [facility] tetanus-diphtheri Right completed Katya [facility] a toxoids 9 [facility] Results Order Name Results Value Reference Date Interpretation Comments Source Range CHEM PANEL eGFR 14 01/10 Result Comment: The eGFR is calculated using the CKD-EPI formula. In most young, healthy individuals the eGFR will be >90 mL/ min/1.73m2. The eGFR declines with age. An eGFR of 60-89 may be normal in mL/min/1. /2016 some populations, particularly the elderly, for whom the CKD-EPI formula has not been extensively validated. Use of the eGFR is not recommended in the following populations: [address] Individuals with unstable creatinine concentrations, including [...] 3.84 mg/dL 0.50 - 01/10 Lvl 1.40 [facility] CHEM PANEL Calcium Lvl 8.3 mg/dL 8.5 - 10.5 01/10 [facility] CHEM PANEL AGAP 10.1 meq/L 10.0 - 07 MH 20.0 [facility] CHEM PANEL CO2 32 meq/L 24 - 32 01/10 [facility] CHEM PANEL Chloride Lvl 102 meq/L 95 - 109 01/10 [facility] CHEM PANEL Potassium 4.1 meq/L 3.5 - 5.1 01/10 MH Lvl [facility] CHEM PANEL Sodium Lvl 140 meq/L 135 - 145 01/10 [facility] CHEM PANEL BUN 9 mg/dL 7 - 01/10 [facility] CHEM PANEL Glucose Lvl 91 mg/dL 70 - 99 01/10 [facility] CHEM PANEL Phosphorus 2.6 mg/dL 2.5 - 4.5 01/10 [facility] IMMUNOLOGY Hep Bs Ag Negative Negative 01/09 [facility] (01/09/17 6:45 PM) DRUG SCREEN UDS Note See Note 01/08 [facility] (01/08/17 6:00 PM) DRUG SCREEN U Benzodia Negative Negative 01/08 [facility] (01/08/17 6:00 PM) DRUG SCREEN U Pinky Scr Negative Negative 01/08 [facility] (01/08/17 6:00 PM) DRUG SCREEN U Cocaine Negative Negative 01/08 [facility] (01/08/17 6:00 PM) DRUG SCREEN U Cannab Scr Negative Negative 01/08 [facility] (01/08/17 6:00 PM) DRUG SCREEN U Phencyc Negative Negative 01/08 [facility] (01/08/17 6:00 PM) DRUG SCREEN U Opiate Scr Negative Negative 01/08 [facility] (01/08/17 6:00 PM) DRUG SCREEN U Amph Scr Negative Negative 01/08 [facility] (01/08/17 6:00 PM) URINE AND UA <=1.0 0.1 - 1.0 01/08 [facility] Urobilinogen mg/dL /2016 [facility] URINE AND UA Ketones Negative 01/08 STOOL [facility] URINE AND UA Color Straw 01/08 [facility] URINE AND UA pH >=9.0 5.0 - 8.0 01/08 [facility] *ABN* [facility] (01/08/17 6:00 PM) URINE AND UA RBC null 0 - 2 01/08 [facility] URINE AND UA WBC 1 /HPF 0 - 5 01/08 [facility] URINE AND UA Glucose Negative Negative 01/08 [facility] mg/dL mg/dL [facility] URINE AND UA Spec Grav 1.004 <=1.030 01/08 [facility] URINE AND UA Nitrite Negative Negative 01/08 [facility] (01/08/17 6:00 PM) [facility] URINE AND UA Protein 30 mg/dL Negative 01/08 [facility] mg/dL [facility] URINE AND UA Turbidity Clear Clear 01/08 STOOL [facility] (01/08/17 6:00 PM) [facility] URINE AND UA Bili Negative Negative 01/08 [facility] *NA* [facility] (01/08/17 6:00 PM) URINE AND UA Blood Negative Negative 01/08 [facility] (01/08/17 6:00 PM) [facility] URINE AND UA Mucus Few /LPF None Seen 01/08 STOOL /LPF [facility] URINE AND UA Sq Epi Few /LPF Few /LPF 01/08 [facility] URINE AND UA Leuk Est Negative Negative 01/08 STOOL [facility] (01/08/17 6:00 PM) [facility] URINE AND UA Bacteria Occasional None Seen 01/08 [facility] /HPF /HPF /2016 [facility] HEMATOLOGY PTT 36.2 s 22.9 - 01/08 MH 35.8 /2016 [facility] HEMATOLOGY INR 1.05 0.85 - 01/08 1. [facility] HEMATOLOGY PT 13.9 s 12.0 - 01/08 14.7 [facility] LIPIDS VLDL 22 01/08 [facility] LIPIDS LDL 50 mg/dL <=99 mg/dL 01/08 (Calculated) [facility] LIPIDS Chol 145 mg/dL <=199 01/08 mg/dL /2016 [facility] LIPIDS Trig 109 mg/dL <=149 01/08 mg/dL [facility] LIPIDS HDL 73 mg/dL >=61 mg/dL 01/08 [facility] LIPIDS CHD Risk 1.99 3.90 - 07/ MH 5.80 /2016 [facility] SPECIAL Hgb A1C 4.6 % <=5.6 % 01/08 CHEMISTRY /2016 [facility] CHEM PANEL B/C Ratio 3 6 - 25 01/08 [facility] CHEM PANEL AGAP 14.4 meq/L 10.0 - 01/08 MH 20.0 [facility] CHEM PANEL Globulin 5.5 g/dL 2.7 - 4.2 01/08 [facility] CHEM PANEL A/G Ratio 0.6 0.7 - 1.6 01/08 [facility] CHEM PANEL eGFR 8 01/08 Result Comment: The eGFR is calculated using the CKD-EPI formula. In most young, healthy individuals the eGFR will be >90 mL/ min/1.73m2. The eGFR declines with age. An eGFR of 60-89 may be normal in mL/min/1. some populations, particularly the elderly, for whom the CKD-EPI formula has not been extensively validated. Use of the eGFR is not recommended in the following populations: [address] Individuals with unstable creatinine concentrations, including [...] Lvl 85 mg/dL 70 - 99 01/08 [facility] CHEM PANEL CO2 26 meq/L 24 - 32 01/08 [facility] CHEM PANEL ALT 14 unit/L 0 - 65 01/08 [facility] CHEM PANEL Creatinine 6.23 mg/dL 0.50 - 01/08 Lvl 1.40 [facility] CHEM PANEL Albumin Lvl 3.3 g/dL 3.5 - 5.0 01/08 [facility] CHEM PANEL BUN 16 mg/dL 7 - 22 01/08 [facility] CHEM PANEL AST 24 unit/L 0 - 37 / [facility] CHEM PANEL Bili Total 0.5 mg/dL 0.2 - 1.3 07/ [facility] CHEM PANEL Total 8.8 g/dL 6.4 - 8.4 01/08 [facility] CHEM PANEL Alk Phos 215 unit/L 39 - 136 07/ [facility] CHEM PANEL Chloride Lvl 101 meq/L 95 - 109 / [facility] CHEM PANEL Potassium 5.4 meq/L 3.5 - 5.1 01/08 Lvl [facility] CHEM PANEL Calcium Lvl 9.1 mg/dL 8.5 - 10.5 01/08 [facility] CHEM PANEL Sodium Lvl 136 meq/L 135 - 145 / [facility] CHEM PANEL Magnesium 2.4 mg/dL 1.8 - 2.4 01/08 Lvl [facility] HEMATOLOGY Hgb 10.5 g/dL 12.0 - 01/08 MH 16.0 [facility] HEMATOLOGY Hct 31.5 % 36.0 - 01/08 MH 48.0 [facility] HEMATOLOGY WBC 9.0 K/CMM 3.7 - 10.4 01/08 /2016 [facility] HEMATOLOGY RBC 3.70 M/CMM 4.20 - 01/08 MH 5.40 /2016 [facility] HEMATOLOGY MCV 85.3 fL 80.0 - 01/08 MH 98.0 [facility] HEMATOLOGY MCH 28.5 pg 27.0 - 01/08 MH 31.0 [facility] HEMATOLOGY MCHC 33.4 g/dL 32.0 - 01/08 MH 36.0 [facility] HEMATOLOGY RDW 12.9 % 11.5 - 07 MH 14.5 [facility] HEMATOLOGY Platelet 212 K/CMM 133 - 450 07 [facility] HEMATOLOGY MPV 9.0 fL 7.4 - 10.4 01/08 [facility] HEMATOLOGY Monocytes 12.8 % 2.0 - 12.0 01/08 /2016 [facility] HEMATOLOGY Segs 43.7 % 45.0 - 07 MH 75.0 [facility] HEMATOLOGY Lymphocytes 40.4 % 20.0 - 07 MH 40.0 [facility] HEMATOLOGY Segs-Bands # 4.0 K/CMM 1.5 - 8.1 01/08 [facility] HEMATOLOGY Eosinophils 1.9 % 0.0 - 4.0 01/08 [facility] HEMATOLOGY Monocytes # 1.2 K/CMM 0.0 - 0.8 01/08 [facility] HEMATOLOGY Lymphocytes 3.7 K/CMM 1.0 - 5.5 01/08 [facility] HEMATOLOGY Basophils 1.2 % 0.0 - 1.0 01/08 [facility] HEMATOLOGY Eosinophils 0.2 K/CMM 0.0 - 0.5 01/08 [facility] HEMATOLOGY Basophils # 0.1 K/CMM 0.0 - 0.2 01/08 [facility] Brain wo Brain wo Brain wo contrast MRI 01/08/2017 4:41 PM CDT 01/08 - contrast contrast MRI - [facility] 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[facility], [place]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 [...] Comments Source Systolic (mm Hg) 128 01/10/2017 [facility] Diastolic (mm Hg) 72 01/10/2017 [facility] Respitory Rate 14 01/10/2017 [facility] Systolic (mm Hg) 100 01/10/2017 [facility] Diastolic (mm Hg) 72 01/10/2017 [facility] Respitory Rate 24 01/10/2017 [facility] Systolic (mm Hg) 118 01/10/2017 [facility] Diastolic (mm Hg) 60 01/10/2017 [facility] Respitory Rate 19 01/10/2017 [facility] BMI Calculated 32.73 01/08/2017 [facility] Weight 76.007 01/08/2017 [facility] Height 152.4 cm 01/08/2017 [facility] Encounters Location Location Encounter Encounter Reason Attending ADM DC Status Source Details Type Number For Provider Date Date Visit [facility] [id number] Tom 01/09 01/10 Cullen Muir /2016 [facility] Procedures Procedure Code Date Perfomer Comments Source section [id number] [facility] Cholecystectomy [id number] [facility]
--- OUTSIDE RECORDS SUMMARY | 2018-05-26 23:16 | XMS REPORT | Clinical Summary ---
:1960 Author Organization [facility] Address [address] [place] [address] Care Team Providers Name Role Phone Jacob Calixto Burrows Unavailable Maria Luisa Louie MD Primary Care Provider Allergies No Known Allergies Medications Medication Sig Dispensed Refills Start Date End Date Status hydrOXYzine Take 50 mg by mouth 0 Active (VISTARIL) 50 MG 3 (three) times capsule daily as needed for Anxiety. ARIPiprazole Take 15 mg by mouth 0 Active (ABILIFY) 10 MG daily . tablet omeprazole Take 20 mg by mouth 0 Active (PRILOSEC) 20 MG daily. capsule sertraline (ZOLOFT) Take 50 mg by mouth 0 Active 50 MG tablet daily. senna-docusate Take 1 tablet by 30 tablet 0 02/01/2016 Active (SENOKOT S) 8.6-50 mouth nightly. mg per tablet ertapenem (INVanz) Inject 0.5 g 0 02/05/2016 Active IVPB intravenously daily. acetaminophen Take 650 mg by mouth 0 Active (TYLENOL) 325 MG every 4 (four) hours tablet as needed for Pain. LORazepam (ATIVAN) 1 Take 1 mg by mouth 0 Active MG tablet every 6 (six) hours as needed for Anxiety. cloNIDine HCl Take 0.1 mg by mouth 0 Active (CATAPRES) 0.1 MG every 8 (eight) tablet hours as needed (bp>180/105). acetaminophen-codein Take 1 tablet by 0 Active e (TYLENOL #3) mouth every 4 (four) 300-30 mg per tablet hours as needed for Pain. Active Problems Problem Noted Date Atrial myxoma 02/06/2016 ESRD on dialysis 02/06/2016 Hyponatremia 02/06/2016 Metabolic bone disease 02/06/2016 [...] Assigned at Date Recorded Not on file Job Start Date Occupation Industry Not on file Not on file Not on file Travel History Travel Start Travel End No recent travel history available. Last Filed Vital Signs Not on file Plan of Treatment Health Maintenance Due Date Last Done Comments INFLUENZA VACCINE 04/02/2018 Implants Implanted Type Area Electronic Transaction Implementer Device Shelf Model / Identifier Expiration Serial / Lot Date Eulalio Hemshld Dbl Jarrod 2.0x6.0in [id number] - [id number] Graft/Pat GETINGE 01/30/2019 [id number] / Implanted: Qty: 1 on 01/25/2016 by Sherif Bañuelos MD ch IND: [id number]:CV / [id number] Results Not on fileafter 05/25/2017 Insurance Payer Benefit Plan / Group Subscriber ID Type Phone Address [employer] [facility] [employer] xxxxxxxxx [facility] MEDICAID [place] xxxxxxxxx Medicaid Advance Directives For more information, please contact:[address] [phone] Code Status Date Activated Date Inactivated Comments Full Code 01/23/2016 1:38 PM 02/06/2016 8:06 PM This code status was determined by: Patient Full Code 01/18/2016 10:03 AM 01/18/2016 10:53 AM This code status was determined by: Patient Full Code 01/16/2016 3:39 AM 01/18/2016 10:03 AM This code status was determined by: Patient
[2018-05-27 00:10] LABS: Absolute Lymphocytes (CBC) 1.4 K/uL (0.7-4.9); Absolute Neutrophil 7.4 K/uL (1.8-8.0); Basophils % 0.4 % (0-1.3); Eosinophils % 0.3 % (0-4.4); Hematocrit 30.3 % (36.0-45.0); Lymphocytes % 12.7 % (15.3-44.8); MCH 27.2 pg (27.0-35.0); MCV 82.1 fL (80-100); MPV 8.8 fL (7.6-11.3); Monocytes % 18.5 % (3.3-12.3); RBC Red Blood Cell Count 3.69 M/uL (3.86-4.86)
[2018-05-27 00:14] LABS: Protime INR 1.28
[2018-05-27] MEDS ORDERED: IPRATROPIUM BROM 0.5MG/2.5ML ONE (00:15)
[2018-05-27] MEDS ORDERED: METHYLPREDNISOLONE 125 MG INJ ONE (00:15)
[2018-05-27] MEDS ORDERED: FUROSEMIDE 100 MG/10 ML VIAL IV ONE (00:16)
[2018-05-27] MEDS ORDERED: LEVALBUTEROL 1.25 MG/3 ML NEB ONE (00:16)
[2018-05-27 00:54] LABS: Bilirubin Direct 0.3 mg/dL (0-0.2); Bilirubin Total 0.8 mg/dL (0.2-1.0); CKMB Creatine Kinase MB 1.2 ng/mL (0.3-3.6); Magnesium 2.1 mg/dL (1.8-2.4); Protein, Total 7.7 g/dL (6.4-8.2); Troponin (Emerg Dept Use Only) 0.07 ng/mL (0.0-0.045)
--- NOTE | 2018-05-27 01:19 | EDPHYS ---
Physician Documentation [facility] Name: Michelle Ochoa Age: 58 yrs Sex: Female : 1960 Arrival Date: 05/26/2018 Time: 23:17 Bed 23 Private MD: Christ Johnson ED Physician Roxanna Mcfadden HPI: 05/26 23:33 This 58 yrs old Black Female presents to ER via Ambulatory with complaints of Shortness ma2 Of Breath, Congestion. 23:33 The patient has shortness of breath with light activity. Onset: The symptoms/episode ma2 began/occurred gradually, 2 day(s) ago. Associated signs and symptoms: Pertinent positives: chest pain, productive cough, Pertinent negatives: productive cough, fever, numbness in extremities. Severity of symptoms: At their worst the symptoms were moderate in the emergency department the symptoms are unchanged. The patient has experienced a previous episode. Historical: - Home Meds: 23:39 clonidine HCl 0.2 mg Oral tab 1 tab 2 times per day [Active]; omeprazole 20 mg Oral tl3 cpDR 1 cap once daily [Active]; isosorbide mononitrate 30 mg Oral Tb24 1 tab once daily [Active]; Renvela 800 mg Oral tab 1 tab 3 times per day [Active]; trazodone 50 mg Oral tab 1 tab 3 times per day [Active]; 23:44 ramipril 5 mg Oral cap 1 cap once daily [Active]; Lasix 40 mg Oral tab 1 tab once daily tl3 [Active]; carvedilol 6.25 mg oral tab 1 tab every 12 hours [Active]; albuterol sulfate 90 mcg/actuation Inhl HFAA [Active]; - PMHx: 23:39 Anemia; CVA; Dialysis- T//Sat; ENDOCARDITIS; Hypertension; kidney failure; PATRICK; Renal tl3 Disease; - PSHx: 23:39 ; Cholecystectomy; YOLANDA fistula; tl3 - Immunization history:: Adult Immunizations up to date. - Social history:: Patient/guardian denies using alcohol, street drugs, The patient lives with family, Smoking status: unknown. - Family history:: not pertinent. - Ebola Screening: : No symptoms or risks identified at this time. ROS: 23:35 Constitutional: Negative for fever, chills, and weight loss, Respiratory: Negative for ma2 shortness of breath, cough, wheezing, and pleuritic chest pain, Abdomen/GI: Negative for abdominal pain, nausea, diarrhea, and constipation, MS/Extremity: Negative for injury and deformity, Neuro: Negative for headache, weakness, numbness, tingling, and seizure. 23:35 Constitutional: Positive for fatigue. 23:35 Respiratory: Positive for cough, hemoptysis, orthopnea, shortness of breath, Negative for hemoptysis. 23:35 All other systems are negative. Exam: 23:37 Neck: Trachea midline, no thyromegaly or masses palpated, and no cervical ma2 lymphadenopathy. Supple, full range of motion without nuchal rigidity, or vertebral point tenderness. No Meningismus. Cardiovascular: Regular rate and rhythm with a normal S1 and S2. No gallops, murmurs, or rubs. Normal PMI, no JVD. No pulse deficits. Abdomen/GI: Soft, non-tender, with normal bowel sounds. No distension or tympany. No guarding or rebound. No evidence of tenderness throughout. MS/ Extremity: Pulses equal, no cyanosis. Neurovascular intact. Full, normal range of motion. Neuro: Awake and alert, GCS 15, oriented to person, place, time, and situation. Cranial nerves II-XII grossly intact. Motor strength 5/5 in all extremities. Sensory grossly intact. Cerebellar exam normal. Normal gait. 23:37 Constitutional: The patient appears in obvious distress, severely distressed. 23:37 Cardiovascular: Rate: normal. 23:37 Respiratory: moderate respiratory distress is noted, Breath sounds: rhonchi, Respiratory rate: 40 Vital Signs: 23:44 BP 130 / 84; Pulse 74; Resp 24; Temp 98.7(O); Pulse Ox 88% on R/A; tl3 23:44 Pulse Ox 94% on 2 lpm NC; tl3 05/27 00:31 BP 141 / 90; Pulse 68; Resp 20; Pulse Ox 95% on 2 lpm NC; tl3 MDM: 05/26 23:27 Patient medically screened. ma2 23:37 Differential diagnosis: Anemia Bronchitis CHF exacerbation, Chronic Obstructive ma2 Pulmonary Disease pulmonary edema, reactive airway disease. 05/27 01:12 Data reviewed: vital signs, nurses notes, lab test result(s), radiologic studies. ma2 Counseling: I had a detailed discussion with the patient and/or guardian regarding: the historical points, exam findings, and any diagnostic results supporting the discharge/admit diagnosis, the presence of at least one elevated blood pressure reading (>120/80) during this emergency department visit, the need for further work-up and treatment in the hospital. ED course: patient needs emergency HD d/t severe hypoxemia and pulmonary edema.. her sats are 88 on RA.. discussed and accepted by pharmacy technician trainee dr. moseley . 01:15 ED course: discussed by Dr. Ballesteros for HD at 7 am . [facility] 05/26 23:33 Order name: Blood Culture Adult (2) [facility] 05/26 23:33 Order name: BMP [facility] 05/26 23:33 Order name: CBC with Diff [facility] 05/26 23:33 Order name: Ckmb [facility] 05/26 23:33 Order name: CPK [facility] 05/26 23:33 Order name: D-Dimer; Complete Time: 01:08 [facility] 05/26 23:33 Order name: Hepatic Function [facility] 05/26 23:33 Order name: Lipase; Complete Time: 01:08 [facility] 05/26 23:33 Order name: Magnesium; Complete Time: 01:08 [facility] 05/26 23:33 Order name: NT PRO-BNP; Complete Time: 01:08 [facility] 05/26 23:33 Order name: PT-INR; Complete Time: 01:08 [facility] 05/26 23:33 Order name: Ptt, Activated; Complete Time: 01:08 [facility] 05/26 23:33 Order name: Troponin (emerg Dept Use Only); Complete Time: 01:08 [facility] 05/26 23:34 Order name: Blood Culture [facility] 05/26 23:33 Order name: XRAY CXR (1 view) [facility] 05/26 23:34 Order name: Basic Metabolic Panel; Complete Time: 01:08 [facility] 05/26 23:34 Order name: CKMB Creatine Kinase MB; Complete Time: 01:08 [facility] 05/26 23:34 Order name: Creatine Phosphokinase; Complete Time: 01:08 [facility] 05/26 23:34 Order name: Liver (Hepatic) Function; Complete Time: 01:08 [facility] 05/27 00:25 Order name: Manual Differential [facility] 05/27 01:13 Order name: BIPAP [facility] 05/27 05:24 Order name: CBC with Automated Diff EDMS 05/27 05:25 Order name: Protime (+INR) EDMS 05/27 05:25 Order name: PTT, Activated Partial Thromb EDMS 05/27 05:52 Order name: Comprehensive Metabolic Panel EDMS 05/27 06:24 Order name: Manual Differential EDMS 05/26 23:33 Order name: EKG; Complete Time: 23:34 ma2 05/26 23:33 Order name: Cardiac monitoring; Complete Time: 00:30 ma2 05/26 23:33 Order name: EKG - Nurse/Tech; Complete Time: 00:30 ma2 05/26 23:33 Order name: IV Saline Lock; Complete Time: 00:24 ma2 05/26 23:33 Order name: Labs collected and sent; Complete Time: 00:24 ma2 05/26 23:33 Order name: O2 Per Protocol; Complete Time: 00:25 ma2 05/26 23:33 Order name: O2 Sat Monitoring; Complete Time: 00:25 ma2 Administered Medications: 00:24 Drug: Xopenex 1.25 mg Route: Inhalation; tl3 01:09 Follow up: Response: No adverse reaction tl3 00:26 Drug: Lasix 100 mg Route: IVP; Infused Over: 2 mins; Site: right antecubital; tl3 01:09 Follow up: Response: No adverse reaction tl3 00:26 Drug: AtroVENT Aerosol 0.5 mg Route: Inhalation; tl3 00:27 Drug: SOLU-Medrol 125 mg Route: IVP; Infused Over: 2 mins; Site: right antecubital; tl3 00:33 Follow up: Response: No adverse reaction tl3 01:08 Drug: AtroVENT Aerosol 0.5 mg Route: Inhalation; tl3 Disposition: 05/27/18 01:19 Hospitalization ordered by Roxanna Felipe for Observation. Preliminary diagnosis is Acute pulmonary edema. - Bed requested for Telemetry/MedSurg (observation). - Status is Observation. hj - Condition is Stable. - Problem is new. - Symptoms have improved. UTI on Admission? No Signatures: Dispatcher [employer] EDDC Anny Mohan RN RN dw Ballard, Brenda, RN RN bb Joaquin, Henry, RN RN Roxanna Mcfadden MD MD [facility] Regina Jimenez, RN RN tl3 Corrections: (The following items were deleted from the chart) 01:33 01:19 Hospitalization Ordered by Roxanna Felipe MD for Observation. Preliminary bb diagnosis is Acute pulmonary edema. Bed requested for Telemetry/MedSurg (observation). Status is Observation. Condition is Stable. Problem is new. Symptoms have improved. UTI on Admission? No. ma2 12:26 01:33 05/27/2018 01:19 Hospitalization Ordered by Roxanna Felipe MD for Observation. dw Preliminary diagnosis is Acute pulmonary edema. Bed requested for [facility] ER HOLD. Status is Observation. Condition is Stable. Problem is new. Symptoms have improved. UTI on Admission? No. bb 13:31 12:26 05/27/2018 01:19 Hospitalization Ordered by Roxanna Felipe MD for Observation. hj Preliminary diagnosis is Acute pulmonary edema. Bed requested for Telemetry/MedSurg (observation). Status is Observation. Condition is Stable. Problem is new. Symptoms have improved. UTI on Admission? No. dw
--- NOTE | 2018-05-27 01:19 | ER ---
Nurse's Notes [facility] Name: Michelle Ochoa Age: 58 yrs Sex: Female : 1960 Arrival Date: 05/26/2018 Time: 23:17 Bed 23 Private MD: Christ Johnson Diagnosis: Acute pulmonary edema Presentation: 05/26 23:29 Presenting complaint: Patient states: shortness of breath, symptoms started a week ago tl3 but have steadily gotten worse. Transition of care: patient was not received from another setting of care. Onset of symptoms. Risk Assessment: Do you want to hurt yourself or someone else? Patient reports no desire to harm self or others. Initial Sepsis Screen: Does the patient meet any 2 criteria? No. Patient's initial sepsis screen is negative. Does the patient have a suspected source of infection? Yes:. Care prior to arrival: None. 23:29 Method Of Arrival: Ambulatory tl3 23:29 Acuity: ZAID 3 tl3 Triage Assessment: 23:44 General: Appears distressed, uncomfortable, Behavior is cooperative, appropriate for tl3 age. Pain: Denies pain. Respiratory: Reports shortness of breath air hunger Onset: The symptoms/episode began/occurred gradually, the patient has moderate shortness of breath. Historical: - Home Meds: 23:39 clonidine HCl 0.2 mg Oral tab 1 tab 2 times per day [Active]; omeprazole 20 mg Oral tl3 cpDR 1 cap once daily [Active]; isosorbide mononitrate 30 mg Oral Tb24 1 tab once daily [Active]; Renvela 800 mg Oral tab 1 tab 3 times per day [Active]; trazodone 50 mg Oral tab 1 tab 3 times per day [Active]; 23:44 ramipril 5 mg Oral cap 1 cap once daily [Active]; Lasix 40 mg Oral tab 1 tab once daily tl3 [Active]; carvedilol 6.25 mg oral tab 1 tab every 12 hours [Active]; albuterol sulfate 90 mcg/actuation Inhl HFAA [Active]; - PMHx: 23:39 Anemia; CVA; Dialysis- T/Th/Sat; ENDOCARDITIS; Hypertension; kidney failure; PATRICK; Renal tl3 Disease; - PSHx: 23:39 ; Cholecystectomy; YOLANDA fistula; tl3 - Immunization history:: Adult Immunizations up to date. - Social history:: Patient/guardian denies using alcohol, street drugs, The patient lives with family, Smoking status: unknown. - Family history:: not pertinent. - Ebola Screening: : No symptoms or risks identified at this time. Screenin:46 Abuse screen: Denies threats or abuse. Nutritional screening: No deficits noted. tl3 Tuberculosis screening: No symptoms or risk factors identified. Fall Risk None identified. Assessment: 23:46 Reassessment: No changes from previously documented assessment. tl3 05/27 00:31 Reassessment: Patient and/or family updated on plan of care and expected duration. Pain tl3 level reassessed. Patient is alert, oriented x 3, equal unlabored respirations, skin warm/dry/pink. pt just finished first neb set, is breathing easier, states she is feeling better. Vital Signs: 05/26 23:44 BP 130 / 84; Pulse 74; Resp 24; Temp 98.7(O); Pulse Ox 88% on R/A; tl3 23:44 Pulse Ox 94% on 2 lpm NC; tl3 05/27 00:31 BP 141 / 90; Pulse 68; Resp 20; Pulse Ox 95% on 2 lpm NC; tl3 ED Course: 05/26 23:17 Patient arrived in ED. am2 23:17 Christ Johnson MD is Private Physician. am2 23:26 Roxanna Mcfadden MD is Attending Physician. ma2 23:29 Regina Jimenez, RN is Primary Nurse. tl3 23:30 Triage completed. tl3 23:44 Arm band placed on right wrist. tl3 23:46 Patient has correct armband on for positive identification. Bed in low position. Call tl3 light in reach. Side rails up X2. Adult w/ patient. monitoring analyst on. Pulse ox on. NIBP on. 23:46 No provider procedures requiring assistance completed. tl3 05/27 00:15 X-ray completed. Portable x-ray completed in exam room. Patient tolerated procedure sg4 well. 00:16 Notified ED physician of a critical lab result(s). D Dimer of [id number] Dr Avendaño notified. bb 00:33 XRAY CXR (1 view) In Process Unspecified. EDMS 01:16 Roxanna Felipe MD is Hospitalizing Provider. ma2 Administered Medications: 00:24 Drug: Xopenex 1.25 mg Route: Inhalation; tl3 01:09 Follow up: Response: No adverse reaction tl3 00:26 Drug: Lasix 100 mg Route: IVP; Infused Over: 2 mins; Site: right antecubital; tl3 01:09 Follow up: Response: No adverse reaction tl3 00:26 Drug: AtroVENT Aerosol 0.5 mg Route: Inhalation; tl3 00:27 Drug: SOLU-Medrol 125 mg Route: IVP; Infused Over: 2 mins; Site: right antecubital; tl3 00:33 Follow up: Response: No adverse reaction tl3 01:08 Drug: AtroVENT Aerosol 0.5 mg Route: Inhalation; tl3 Outcome: 01:00 Admitted to [facility] Hold. [facility]. bb 01:19 Decision to Hospitalize by Provider. ma2 13:31 Patient left the ED. Signatures: Dispatcher [employer] EDMS Martha Vickers RN RN bb Joaquin, Henry, RN RN hj Moreno, Amanda am2 Alzahri, Mohammad, MD MD ma2 Regina Jimenez RN RN tl3 Kamille Gonzales [facility] [place]
[2018-05-27 01:30] LABS: Blood Morphology Comment NOT SEEN (NOT SEEN); Platelet Estimate ADEQ
[2018-05-27] MEDS ORDERED: ONDANSETRON 4 MG/2 ML VIAL IV PRN (01:48)
[2018-05-27] MEDS ORDERED: MORPHINE 4 MG/ML SYR IV PRN (01:48)
[2018-05-27] MEDS ORDERED: ACETAMINOPHEN 500 MG TAB PO PRN (01:48)
[2018-05-27] MEDS ORDERED: FUROSEMIDE 40 MG/4 ML VIAL IV ONE (03:15)
[2018-05-27 05:06] LABS: Protime INR 1.27
[2018-05-27 05:23] LABS: Absolute Lymphocytes (CBC) 0.6 K/uL (0.7-4.9); Absolute Monocytes 0.3 K/uL (0.1-1.3); Absolute Neutrophil 7.5 K/uL (1.8-8.0); Basophils % 0.4 % (0-1.3); Eosinophils % 0.1 % (0-4.4); Hematocrit 29.9 % (36.0-45.0); Lymphocytes % 7.2 % (15.3-44.8); MCH 27.1 pg (27.0-35.0); MCV 82.6 fL (80-100); MPV 9.1 fL (7.6-11.3); Monocytes % 3.2 % (3.3-12.3); RBC Red Blood Cell Count 3.62 M/uL (3.86-4.86)
[2018-05-27 05:51] LABS: Bilirubin Total 0.8 mg/dL (0.2-1.0); Potassium 4.5 mmol/L (3.5-5.1); Protein, Total 7.7 g/dL (6.4-8.2)
--- NOTE | 2018-05-27 06:08 | EKG ---
Test Date: 2018-05-27 Test Time: 00:41:32 Exhaust Emissions Inspector: TL MEASUREMENT RESULTS: Intervals: Rate: 73 AK: 150 QRSD: 76 QT: 478 QTc: 526 [place]: P: 36 AK: 150 QRS: 30 T: 254 INTERPRETIVE STATEMENTS: Normal sinus rhythm Minimal voltage criteria for LVH, may be normal variant ST & T wave abnormality, consider lateral ischemia Septal infarct Prolonged QT Abnormal ECG Compared to ECG 03/17/2018 13:27:16 Sinus bradycardia no longer present Electronically Signed On 05-27-18 06:07:41 QUANTITATIVE ANALYST by Prashanth Casanova
[2018-05-27 06:24] LABS: Blood Morphology Comment NOT SEEN (NOT SEEN); Platelet Estimate ADEQ
[2018-05-27] MEDS: HOME MED 1 EA UNK (Fluticasone/Salmeterol [Advair 250-50 Diskus] 1 PUFF) IN SCH ×2 (09:00→21:00)
[2018-05-27] MEDS: ISOSORBIDE MONO SR 30 MG TAB PO SCH (09:00)
[2018-05-27] MEDS: FUROSEMIDE 40 MG TABLET PO SCH (09:00)
[2018-05-27] MEDS: CARVEDILOL 6.25 MG TAB PO SCH ×2 (09:00→21:19)
[2018-05-27] MEDS ORDERED: CARVEDILOL 6.25 MG TAB ONE (09:36)
[2018-05-27] MEDS ORDERED: FUROSEMIDE 40 MG TABLET ONE (09:37)
--- NOTE | 2018-05-27 11:13 | P.CNS ---
Date of Consult: 05/27/18 Reason for Consult: ESRd to rexume HD and volume mgmt Chief Complaint: SOB History of Present Illness: A 58 Y/O woman with history of HTN, COPD, ESRD on TTast pt presented for SOB , as per pt her dialyses schedule is TTsat, had last HD on Monday ? and went to her unit yesterday but didnt get dialysis, pt unsure why? as per her relative at bedside pt skip treatments pt had O2 sat ~88%, CXR; pul edema, now symptoms improved on o2 no chest pain, palpitation, nausea, vomiting or diarrhea Allergies No Known Allergies Allergy (Verified 05/27/18 07:15) Home Medications: Albuterol Sulfate [Proair Hfa] 1 puff IN TID PRN 03/17/18 Carvedilol 6.25 mg PO BID 03/17/18 Fluticasone/Salmeterol [Advair 250-50 Diskus] 1 puff IN BID 03/17/18 Furosemide [Lasix*] 40 mg PO DAILY 03/17/18 Isosorbide Mononitrate [Isosorbide Mononitrate ER] 1 tab PO DAILY 03/17/18 Trazodone HCl 100 mg PO BEDTIME PRN 03/17/18 - Past Medical/Surgical History Diabetic: No -: Pulmonary hypertension -: COPD -: History of CVA (left side weakness) -: Hepatitis-C -: ESRD, dialysis Tuesdays, and Saturdays -: Anemia of chronic disease -: cardiac bypass 2014 -: CHF -: Non compliance -: YOLANDA fistula -: -: Cholecystectomy Psychosocial/ Personal History: Patient lives by herself. She is . She has 2 children. - Family History Mother Medical History: Heart disease Sister Medical History: Hypertension - Social History Smoking Status: Current every day smoker Alcohol use: Yes CD- Drugs: No Caffeine use: Yes Physical Examination Temp Pulse Resp BP Pulse Ox 97.8 F 62 16 148/83 H 96 05/27/18 07:21 05/27/18 09:00 05/27/18 07:21 05/27/18 09:00 05/27/18 07:21 General: Oriented x3 HEENT: Atraumatic Neck: Without JVD or thyroid abnormality Respiratory: Diminished Cardiovascular: Regular rate/rhythm, Normal S1 S2, No rubs, No murmurs, Edema Gastrointestinal: Normal bowel sounds Laboratory Data (last 24 hrs) 05/26/18 23:45: PT 15.2 H, INR 1.28, APTT 34.2 05/26/18 23:45: WBC 11.0 H, Hgb 10.0 L, Hct 30.3 L, Plt Count 187 05/26/18 23:45: Sodium 137, Potassium 4.0, BUN 60 H, Creatinine 8.90 H*, Glucose 172 H, Magnesium 2.1, Total Bilirubin 0.8, AST 13 L, ALT 11 L, Alkaline Phosphatase 126 H, Lipase 169 - Problems (1) Volume overload Onset Date: 05/08/17 Current Visit: No Status: Acute Qualifiers: (2) Anemia Onset Date: 01/06/16 Current Visit: No Status: Chronic (3) ESRD (end stage renal disease) on dialysis Onset Date: 01/06/16 Current Visit: No Status: Chronic (4) HTN (hypertension) Onset Date: 05/08/17 Current Visit: No Status: Chronic Qualifiers: Conclusions/Impression: A 58 Y/O woman with history of HTN, COPD, ESRD on TTast pt presented for SOB , as per pt her dialyses schedule is TTsat, had last HD on Monday ? and went to her unit yesterday but didnt get dialysis, pt unsure why? as per her relative at bedside pt skip treatments pt had O2 sat ~88%, CXR; pul edema, now symptoms improved on o2 no chest pain, palpitation, nausea, vomiting or diarrhea ESRD will do HD today then TTsat renal diet renal dose all meds Pul edema Fluid and salt restriction HD today HTN resume home meds Anemia will resume epo MBD will check PTh and Phos
[2018-05-27] MEDS ORDERED: NA CHLORIDE 0.9% 1,000 ML IV PRN (13:18)
--- NOTE | 2018-05-27 13:54 | RAD REPORT ---
EXAM DESCRIPTION: RAD - Chest Single View - 05/27/2018 12:33 am CLINICAL HISTORY: CONGESTION Chest pain. COMPARISON: Chest Single View dated 03/17/2018; Chest Pa And Lat (2 Views) dated 01/25/2018; Chest Sin gle View dated 01/24/2018; Chest Single View dated 01/09/2018 FINDINGS: Portable technique limits examination quality. Mild interstitial pulmonary edema suspected. Trace pleural fluid seen. The heart is mildly enlarged i n size. No displaced fractures.Sternotomy wires present. IMPRESSION: Mild CHF versus volume overload.
--- NOTE | 2018-05-27 13:54 | P.HP ---
Certification for Inpatient Patient admitted to: Observation With expected LOS: <2 Midnights Patient will require the following post-hospital care: None Practitioner: I am a practitioner with admitting privileges, knowledge of patient current condition, hospital course, and medical plan of care. Services: Services provided to patient in accordance with Admission requirements found in Title 42 Section 412.3 of the Code of Federal Regulations Patient History Date of Service: 05/27/18 Reason for admission: SOB History of Present Illness: Patient is a 58-year-old female who comes into the emergency room short of breath. Patient had her dialysis schedules changed over the weekend. She normally goes Tuesdays, , and Saturdays. However, this week she was scheduled for Monday, Monday, Monday. After going on Monday she states she was told she did not need dialysis on Monday. He started getting short of breath Monday evening. She came into the hospital. Chest x-ray shows some pulmonary edema. We gave her IV Lasix that she still makes urine. Clinically she appears to be doing much better. Will consult Nephrology,, for hemodialysis. Allergies No Known Allergies Allergy (Verified 05/27/18 07:15) Home Medications: Albuterol Sulfate [Proair Hfa] 1 puff IN TID PRN 03/17/18 Carvedilol 6.25 mg PO BID 03/17/18 Fluticasone/Salmeterol [Advair 250-50 Diskus] 1 puff IN BID 03/17/18 Furosemide [Lasix*] 40 mg PO DAILY 03/17/18 Isosorbide Mononitrate [Isosorbide Mononitrate ER] 1 tab PO DAILY 03/17/18 Trazodone HCl 100 mg PO BEDTIME PRN 03/17/18 - Past Medical/Surgical History Diabetic: No -: Pulmonary hypertension -: COPD -: History of CVA (left side weakness) -: Hepatitis-C -: ESRD, dialysis Tuesdays, and Saturdays -: Anemia of chronic disease -: cardiac bypass 2014 -: CHF -: Non compliance -: YOLANDA fistula -: -: Cholecystectomy Psychosocial/ Personal History: Patient lives by herself. She is . She has 2 children. - Family History Mother Medical History: Heart disease Sister Medical History: Hypertension - Social History Alcohol use: Yes CD- Drugs: No Caffeine use: Yes Review of Systems 10-point ROS is otherwise unremarkable Physical Examination - Vital Signs Temperature: 97.8 F Blood Pressure: 148/83 Pulse: 62 Respirations: 16 Pulse Ox (%): 96 - Physical Exam General: Alert, In no apparent distress, Oriented x3 HEENT: Atraumatic, PERRLA, Mucous membr. moist/pink, EOMI, Sclerae nonicteric Neck: Supple, 2+ carotid pulse no bruit, No LAD, Without JVD or thyroid abnormality Respiratory: Crackles/rales, Expiratory wheezes Cardiovascular: Regular rate/rhythm, Normal S1 S2, Systolic murmur Gastrointestinal: Normal bowel sounds, Soft and benign, Non-distended, W/out succussion splash, No tenderness Musculoskeletal: No clubbing, No tenderness Integumentary: No rashes Neurological: Normal gait, Normal speech, Normal strength at 5/5 x4 extr, Normal tone, Sensation intact, Cranial nerves 3-12 intact, Normal affect Lymphatics: No axilla or inguinal lymphadenopathy - Studies Laboratory Data (last 24 hrs) 05/26/18 23:45: PT 15.2 H, INR 1.28, APTT 34.2 05/26/18 23:45: WBC 11.0 H, Hgb 10.0 L, Hct 30.3 L, Plt Count 187 05/26/18 23:45: Sodium 137, Potassium 4.0, BUN 60 H, Creatinine 8.90 H*, Glucose 172 H, Magnesium 2.1, Total Bilirubin 0.8, AST 13 L, ALT 11 L, Alkaline Phosphatase 126 H, Lipase 169 Assessment & Plan - Problems (Diagnosis) (1) Acute on chronic diastolic CHF (congestive heart failure) Onset Date: 05/08/17 Current Visit: No Status: Acute (2) Cocaine abuse Current Visit: No Status: Acute (3) Congestive heart failure Onset Date: 01/10/18 Current Visit: No Status: Acute Qualifiers: Heart failure type: diastolic Heart failure chronicity: acute on chronic Qualified Code(s): I50.33 - Acute on chronic diastolic (congestive) heart failure (4) Dyspnea Onset Date: 01/25/18 Current Visit: No Status: Acute (5) Volume overload Onset Date: 05/08/17 Current Visit: No Status: Acute Qualifiers: (6) ESRD (end stage renal disease) on dialysis Onset Date: 01/06/16 Current Visit: No Status: Chronic (7) HTN (hypertension) Onset Date: 05/08/17 Current Visit: No Status: Chronic Qualifiers: (8) Noncompliance Onset Date: 01/10/18 Current Visit: No Status: Chronic (9) Tobacco abuse Onset Date: 01/25/18 Current Visit: No Status: Chronic (10) COPD (chronic obstructive pulmonary disease) Onset Date: 01/25/18 Current Visit: No Status: Suspected Qualifiers: COPD type: chronic bronchitis Chronic bronchitis type: unspecified Qualified Code(s): J42 - Unspecified chronic bronchitis - Plan -Consult nephrology for hemodialysis -Resume home medications -repeat chest x-ray -monitor electrolyte -possible discharge home in 24 hr Discharge Plan: Home Plan to discharge in: 24 Hours - Advance Directives Does patient have a Living Will: No Does patient have a Durable POA for Healthcare: No - Code Status/Comfort Care Code Status Assessed: Yes Code Status: Full Code Critical Care: No Time Spent Managing PTS Care (In Minutes): 50
[2018-05-27] MEDS ORDERED: ALBUMIN HUMAN 25% 50 ML IV SCH (14:00)
[2018-05-27] MEDS ORDERED: TRAZODONE 50 MG TABLET PO PRN (21:00)
[2018-05-28 05:14] LABS: Albumin 3.1 g/dL (3.4-5.0); Bilirubin Total 0.5 mg/dL (0.2-1.0); Ferritin 566.8 ng/mL (8-388); Phosphorus 5.9 mg/dL (2.5-4.9); Potassium 4.1 mmol/L (3.5-5.1); Protein, Total 8.1 g/dL (6.4-8.2)
[2018-05-28 05:16] LABS: Absolute Lymphocytes (CBC) 1.6 K/uL (0.7-4.9); Absolute Monocytes 2.9 K/uL (0.1-1.3); Absolute Neutrophil 11.6 K/uL (1.8-8.0); Basophils % 0.1 % (0-1.3); Hematocrit 33.7 % (36.0-45.0); Lymphocytes % 9.8 % (15.3-44.8); MCH 27.1 pg (27.0-35.0); MCV 83.3 fL (80-100); MPV 9.3 fL (7.6-11.3); RBC Red Blood Cell Count 4.05 M/uL (3.86-4.86)
[2018-05-28 05:17] LABS: Monocytes % 18.1 % (3.3-12.3)
[2018-05-28 05:21] LABS: Protime INR 1.09
--- NOTE | 2018-05-28 08:58 | RAD REPORT ---
EXAM DESCRIPTION: RAD - Chest Single View - 05/28/2018 6:36 am CLINICAL HISTORY: pneumonia Chest pain. COMPARISON: Chest Single View dated 05/27/2018; Chest Single View dated 03/17/2018; Chest Pa And Lat (2 Views) dated 01/25/2018; Chest Single View dated 01/24/2018 FINDINGS: Portable technique limits examination quality. Mild the interstitial pulmonary edema is suspected. The heart is moderately enlarged in size. Sternot cory wires present. IMPRESSION: Mild CHF versus volume overload pattern.
[2018-05-28] MEDS: HOME MED 1 EA UNK (Fluticasone/Salmeterol [Advair 250-50 Diskus] 1 PUFF) IN SCH ×2 (09:00→21:00)
[2018-05-28] MEDS: CARVEDILOL 6.25 MG TAB PO SCH ×2 (09:05→22:43)
[2018-05-28] MEDS: FUROSEMIDE 40 MG TABLET PO SCH (09:05)
[2018-05-28] MEDS: ISOSORBIDE MONO SR 30 MG TAB PO SCH (09:06)
[2018-05-28] MEDS ORDERED: EPOETIN ALFA 4000 UNIT/1 ML VIAL SQ SCH (10:00)
--- NOTE | 2018-05-28 18:13 | P.PN ---
Subjective Date of Service: 05/28/18 Chief Complaint: SOB Patient seen and examined at bedside. No family at bedside. Case discussed with nursing staff. Reports worsening cough with productive sputum. Reports breathing is a little bit better though after dialysis. Review of Systems As noted Physical Examination - Vital Signs Temperature: 97.6 F Blood Pressure: 108/62 Pulse: 76 Respirations: 20 Pulse Ox (%): 96 - Physical Exam General: Alert, In no apparent distress, Oriented x3 HEENT: Atraumatic, PERRLA, EOMI Neck: Supple, JVD not distended Respiratory: Diminished, Crackles/rales Cardiovascular: Regular rate/rhythm, Normal S1 S2 Gastrointestinal: Normal bowel sounds, No tenderness Musculoskeletal: No tenderness Integumentary: No rashes Neurological: Normal speech, Normal tone, Normal affect Lymphatics: No axilla or inguinal lymphadenopathy - Studies Medications List Reviewed: Yes Assessment And Plan - Plan - Problems (Diagnosis) (1) Acute on chronic diastolic CHF (congestive heart failure) Onset Date: 05/08/17 Current Visit: No Status: Acute (2) Cocaine abuse Current Visit: No Status: Acute (3) Congestive heart failure Onset Date: 01/10/18 Current Visit: No Status: Acute Qualifiers: Heart failure type: diastolic Heart failure chronicity: acute on chronic Qualified Code(s): I50.33 - Acute on chronic diastolic (congestive) heart failure (4) Dyspnea Onset Date: 01/25/18 Current Visit: No Status: Acute (5) Volume overload Onset Date: 05/08/17 Current Visit: No Status: Acute Qualifiers: (6) ESRD (end stage renal disease) on dialysis Onset Date: 01/06/16 Current Visit: No Status: Chronic (7) HTN (hypertension) Onset Date: 05/08/17 Current Visit: No Status: Chronic Qualifiers: (8) Noncompliance Onset Date: 01/10/18 Current Visit: No Status: Chronic (9) Tobacco abuse Onset Date: 01/25/18 Current Visit: No Status: Chronic (10) COPD (chronic obstructive pulmonary disease) Onset Date: 01/25/18 Current Visit: No Status: Suspected Qualifiers: COPD type: chronic bronchitis Chronic bronchitis type: unspecified Qualified Code(s): J42 - Unspecified chronic bronchitis - Plan -Consult nephrology for hemodialysis. Recommendations appreciated -Resume home medications -repeat chest x-ray without any changes -monitor electrolyte -Oral Augmentin started, sputum cultures pending as patient with productive cough that has been worsening. Disposition: possible discharge home in 24 hr
[2018-05-28] MEDS: AMOX/K CLAV 500 MG TAB PO SCH (22:43)
--- NOTE | 2018-05-28 23:48 | PN ---
Date of Progress Note: 05/28/2018 NEPHROLOGY PROGRESS NOTE Subjective: The patient was seen by Dr. Lopez. Care has been transferred over to our service as primary nephrology team. The patient did have dialysis yesterday. Continues to have some dyspnea r equiring oxygen. Review of Systems: The patient still feels fatigued with shortness of breath at rest, however, that has slightly improve d. She denies any fevers, chills, chest pain, nausea, vomiting, or diarrhea. Objective: Vital Signs: Blood pressure 108/62, pulse 76, temperature 97.6. General: No acute distress. Heart: Regular rate and rhythm. No murmurs, rubs, gallops. Lungs: Coarse breath sounds in the central area. Abdomen: Soft, nontender, nondistended. Extremities: With no significant edema. Laboratory Data: CBC showing a white blood cell count of 16.1, hemoglobin stable at 11, platelet cou nt is 282. Serum chemistry; potassium 4.1, CO2 19, BUN 47, creatinine 6.2. Phosphorus elevated at 5 .9, iron saturation is 25, PTH is elevated at 682. Impression: 1.End-stage renal disease, on hemodialysis. 2.Dyspnea, possibly related to underlying bronchitis. 3.Anemia. 4.Secondary hyperparathyroidism secondary to hyperphosphatemia in the setting of end-stage renal dis ease. Plan: The patient received dialysis yesterday. Repeat chest x-ray had shown mild interstitial pulmo nary edema, however, no evidence of florid congestive heart failure. I feel the patient may have an element of bronchitis and so primary team will initiate antibiotics and we will continue to monitor. If the patient requires repeat dialysis tomorrow, that will be ordered at that time based on the cli nical presentation. She does have hyperphosphatemia and would recommend re-initiation of the patient 's phosphorus binders. The patient does have hyperparathyroidism and we will initiate phosphorus bin ders and this will be followed in the outpatient setting. Continue the patient on a renal low-sodium diet. Continue fluid restriction. We will continue to follow. SE/MODL Voice ID: [id number] Report ID: [id number]
[2018-05-29 04:44] LABS: Phosphorus 5.8 mg/dL (2.5-4.9); Potassium 3.9 mmol/L (3.5-5.1)
[2018-05-29 06:04] VITALS: BMI 32.1
[2018-05-29] MEDS: HOME MED 1 EA UNK (Fluticasone/Salmeterol [Advair 250-50 Diskus] 1 PUFF) IN SCH ×2 (09:00→21:00)
[2018-05-29] MEDS: ISOSORBIDE MONO SR 30 MG TAB PO SCH (09:04)
[2018-05-29] MEDS: CARVEDILOL 6.25 MG TAB PO SCH ×2 (09:05→22:50)
[2018-05-29] MEDS: FUROSEMIDE 40 MG TABLET PO SCH (09:05)
[2018-05-29] MEDS: AMOX/K CLAV 500 MG TAB PO SCH (21:00)
--- NOTE | 2018-05-30 04:25 | PN ---
Date of Progress Note: 05/29/2018 NEPHROLOGY PROGRESS NOTE Subjective: The patient is seen at the bedside. No overnight events reported. The patient says her dyspnea has improved. She denies any fevers, chills, chest pain, nausea, vomiting, or diarrhea. Th e patient does continue to have a productive cough. Objective: Vital Signs: Blood pressure 177/92, pulse 79, afebrile. General: No acute distress. Heart: Regular rate and rhythm. No murmurs, rubs, gallops. LUNGS: Coarse breath sounds in the mid lung roy. ABDOMEN: Soft, nontender, nondistended. EXTREMITIES: With trace edema. Laboratory Data: CBC on the 26 was reviewed. Serum chemistry was reviewed. Potassium 3.9, BUN 65, creatinine 8.2. Phosphorus elevated 5.8. Current Medications: Reviewed. The patient was started on Augmentin 500 mg daily yesterday. Impression: 1.End-stage renal disease on hemodialysis. 2.Possible bronchitis. 3.Volume overload. Hyperphosphatemia secondary to end-stage renal disease. 4.Chronic obstructive pulmonary disease. Plan: The patient will have dialysis today. We will aim for 1-2 L of volume removal. Continue anti biotics per primary team. We will continue to monitor the patient's respiratory status on daily basi s. It does appear to be improving slightly. The patient does have hyperphosphatemia and PhosLo 1 tab wi th each meal will be initiated. /MODL Voice ID: [id number] Report ID: [id number]
[2018-05-30] MEDS: FUROSEMIDE 40 MG TABLET PO SCH (08:05)
[2018-05-30] MEDS: CA ACETATE 667 MG CAP PO SCH ×2 (08:05→12:20)
[2018-05-30] MEDS: HOME MED 1 EA UNK (Fluticasone/Salmeterol [Advair 250-50 Diskus] 1 PUFF) IN SCH (08:06)
[2018-05-30] MEDS: ISOSORBIDE MONO SR 30 MG TAB PO SCH (08:06)
[2018-05-30] MEDS: CARVEDILOL 6.25 MG TAB PO SCH (08:06)
[2018-05-30] MEDS ORDERED: HYDRALAZINE HCL 20 MG/ML VIAL IV ONE (10:04)
[2018-05-30 12:32] VITALS: BP 103/62; TEMP 98.3
[2018-05-30 15:06] VITALS: O2SAT 98
--- NOTE | 2018-05-30 16:34 | PN ---
Date of Progress Note: 05/30/2018 Subjective: The patient seen and examined, chart reviewed, and case discussed with RN. The patient unfortunately was unable to have dialysis done yesterday last night. Did complete dialysis early thi s morning. The patient's blood pressure, otherwise little bit on the high side. No other complaints . Review of Systems: Negative except as above. Medications: List reviewed. Physical Examination: Vital Signs: Temperature 97.5, heart rate 72, blood pressure 195/94, respirations 16, O2 95% on room air. General: Awake, alert, oriented x3. Not on any acute distress. CV: S1 and S2. Regular rate and rhythm. Peripheral pulses present. Respiratory: Moving air well bilaterally. No wheezing. Gastrointestinal: Abdomen is soft, nontender, nondistended. Positive bowel sounds. Extremities: No clubbing, cyanosis, or edema. Neurologic: Nonfocal. Laboratory Data: Pending. Blood cultures, no growth to date and 3/4 bottles, 1 bottle shows gram-po sitive cocci, likely contaminant, we will follow up. Sputum cultures negative. Assessment And Plan: A 58-year-old female with: 1.Itbij-nd-bagimtx diastolic heart failure, improving. 2.Cocaine abuse. 3.Dyspnea, resolved. 4.Volume overload, resolved. 5.End-stage renal disease, on hemodialysis. 6.Essential hypertension, stable. 7.Noncompliance. 8.Nicotine dependence with cigarette smoking. 9.Chronic obstructive pulmonary disease, chronic bronchitis. Plan: Discharge home. VLADISLAV Voice ID: [id number] Report ID: [id number]
--- NOTE | 2018-05-30 17:42 | DS ---
Date of Discharge: 05/29/2018 Consultants: 1.Dr. Washburn with Nephrology. 2.Dr. Lopez with Nephrology. Admitting Diagnoses: 1.Mvswz-dk-eqnmpts diastolic heart failure exacerbation. 2.Cocaine abuse. 3.Dyspnea. 4.Volume overload. 5.End-stage renal disease on dialysis. 6.Essential hypertension. 7.Noncompliance. 8.Nicotine dependence with cigarette smoking. 9.Chronic obstructive pulmonary disease, chronic bronchitis. Discharge Diagnoses: 1.Imavc-hx-uokflzw diastolic heart failure exacerbation, improving. 2.Cocaine abuse, counseled. 3.Dyspnea, improved. 4.Volume overload secondary to missed dialysis. 5.End-stage renal disease on dialysis. 6.Essential hypertension. 7.Noncompliance, intentional. 8.Nicotine dependence with cigarette smoking, uncomplicated, counseled. 9.Chronic obstructive pulmonary disease chronic bronchitis. 10.Obesity, BMI 32.2. Hospital Course: The patient is a 58-year-old female, who had recent change in her dialysis days. T he patient felt short of breath after her last dialysis, came into the x-ray, found to have pulmonary edema. The patient was dialyzed and felt better. Nephrology was consulted. The patient also had s ome yvkih-dn-nzvmbuu exacerbation of her diastolic heart failure. The patient's shortness of breath, improved. She is still requiring supplemental oxygen, however, to be weaned off. Does have some mi ld elevation in her troponin, likely secondary to chronic kidney disease and missed dialysis, likely due to demand mismatch. The patient otherwise had a chest x-ray, which showed some mild volume overl oad. The patient was then plan for dialysis again on the day of discharge by Dr. Washburn. The patient was then doing well and will be discharged after dialysis. Medications: As per medication reconciliation list. Finish a course of Augmentin. The patient did have 1/4 bottles positive for gram-positive cocci, likely contaminant. Followup: Follow up with primary care physician in 2-3 days. Follow up with director of early childhood education, Dr. Washburn in 2 weeks. Return to ER for worsening condition. Diet: Renal, fluid-restricted diet. Activity: Fall precautions. Physical Examination: General: Awake, alert, oriented x3. No acute distress, obese. CV: S1 and S2. No murmurs. Respiratory: Moving air well bilaterally. Gastrointestinal: Abdomen is soft, nontender, nondistended. Positive bowel sounds. Extremities: No clubbing, cyanosis, or edema. Neurologic: Nonfocal. SA/MODL Voice ID: [id number] Report ID: [id number]
--- NOTE | 2018-05-30 19:02 | PN ---
Date of Progress Note: 05/30/2018 Subjective: The patient is seen and examined, doing okay. She is getting discharged from the hospit al. She says she feels better. Denies any shortness of breath overnight. Objective: Vital signs: Have been reviewed and blood pressure is running in the 190s, but improved to 160s most recently. Lungs: Clear. Abdomen: Soft. Extremities: Without any evidence of edema. Laboratory Data: Has been reviewed. Current Medications: Have been reviewed. Impression: 1.End-stage renal disease, on dialysis. 2.Possible bronchitis, improving. 3.Volume overload, improving after dialysis. 4.Chronic obstructive pulmonary disease. Plan: The patient had dialysis yesterday. She has slight cannulation difficulty, but was able to ge t 1-2 L off. The patient's respiratory status has significantly improved. She is okay to be dischar ged from Nephrology standpoint and has been advised compliance with dialysis treatments in the future . Continue all other medications and plan of care. RORO/ROBBIE Voice ID: [id number] Report ID: [id number]
== END 2018-05-30 14:20 | disposition home or self-care (01) ==
LOC: ER 23:14 → ERHOLD 05-27 01:40 → 4TH 05-27 13:19
PROVIDERS: ADMIT Hospitalist; ATTEND Hospitalist
DX: I13.2 Hypertensive heart and chronic kidney disease with heart failure and with stage 5 chronic kidney disease, or end stage renal disease (principal); I50.33 Acute on chronic diastolic (congestive) heart failure; N18.6 End stage renal disease; Z99.2 Dependence on renal dialysis; Z91.15 Patient's noncompliance with renal dialysis; J44.9 Chronic obstructive pulmonary disease, unspecified; F14.10 Cocaine abuse, uncomplicated; F17.210 Nicotine dependence, cigarettes, uncomplicated
CPT/HCPCS: 36415 ×2; 71045 ×2; 80048 ×2; 80053 ×2; 80076; 82550; 82553; 82728; 82962 ×13; 83540; 83690; 83735; 83880; 83970; 84100 ×2; 84466; 84484; 85025 ×3; 85379; 85610 ×3; 85730 ×2; 87040 ×2; 87070; 87205 ×2; 90935; 93005; 96374; 96375; 99285; G0378 ×2; J0360; J1644 ×2; J2930; Q4081

== ENCOUNTER 2018-09-30 15:41 | Emergency (ER) | payer OTHER ==
--- OUTSIDE RECORDS SUMMARY | 2018-09-30 15:43 | XMS REPORT | Clinical Summary ---
:1960 Author Organization [facility] Address [address] [place] [address] Care Team Providers Name Role Phone [place] Calixto Burrows Unavailable Maria Luisa Louie MD [...] INFLUENZA VACCINE 04/02/2018 Implants Implanted Type Area Senior [employer] Applications Developer Device Shelf Model / Identifier Expiration Serial / Lot Date Eulalio Hemshld Dbl Jarrod 2.0x6.0in [id number] - [id number] Graft/Pat GETINGE 01/30/2019 [id number] / Implanted: Qty: 1 on 01/25/2016 by Sherif Bañuelos MD IND: KWADWOT:CV / [id number] Results Not on fileafter 09/29/2017 Insurance Payer Benefit Plan / Group Subscriber ID Type Phone Address [employer] [facility] [employer] xxxxxxxxx [facility] MEDICAID [place] xxxxxxxxx Medicaid Advance Directives For more information, please contact:[address] [phone] Code Status Date Activated Date Inactivated Comments Full Code 01/23/2016 1:38 PM 02/06/2016 8:06 PM This code status was determined by: Patient Full Code 01/18/2016 10:03 AM 01/18/2016 10:53 AM This code status was determined by: Patient Full Code 01/16/2016 3:39 AM 01/18/2016 10:03 AM This code status was determined by: Patient
--- OUTSIDE RECORDS SUMMARY | 2018-09-30 15:44 | XMS REPORT | Continuity of Care Document ---
:1960 Author Organization Interface Problems Problem Status Onset Classification Date Comments Source Date Reported KIDNEY FAILURE Active 06/24/[address] NUMBNESS Active 01/09/[address] ISCHEMIC STROKE Active 01/09/[address] Methicillin Active 06/11/20 Problem 01/13/2017 Problem resistant 09 added by [facility] Staphylococcus Discern [facility] aureus<sup>2, Expert. 3</sup> Final: Cerebral 01/13/2017 infarction, [facility] unspecified [facility] Bipolar disorder Resolved Problem 01/13/2017 [facility] CKD (<span Resolved Problem 01/13/2017 ID="[id number]" [facility] >Confirmed</span> [facility] ) COPD (<span Resolved Problem 01/13/2017 ID="[id number]"> [facility] Confirmed</span>) [facility] CVA (<span Resolved Problem 01/13/2017 ID="[id number]" [facility] >Confirmed</span> [facility] ) Dialysis Resolved Problem 01/13/2017 started patient<sup>1</najera approx 2013 [facility] Resolved Problem 01/13/2017 disease [facility] Heart attack Resolved Problem 01/13/2017 [facility] Hepatitis C Resolved Problem 01/13/2017 [facility] HTN (<span Resolved Problem 01/13/2017 ID="[id number]"> [facility] Confirmed</span>) [facility] Simple obesity Active Problem 01/13/2017 [facility] Smoker Resolved Problem 01/13/2017 [facility] ILLNESS, Active UNSPECIFIED [facility] Medications Medication Details Route Status Patient Ordering Order Source Instructions Provider Date atorvastatin 10 mg, 1 tab, No Longer Route: PO, Drug Active 2016 [facility] form: TAB, [facility] Bedtime, Dosing Weight 76.007, kg, Start date: 01/09/17 21:00:00 CDT, Duration: 30 day, Stop date: 02/07/17 21:00:00 CDTNotes: (Same As: Lipitor) aspirin 81 mg 81 mg=1 tab, Active tablet, enteric PO, Daily, # 30 2016 [facility] coated tab, 0 [facility] Refill(s) atorvastatin 10 10 mg=1 tab, Active mg oral tablet PO, Bedtime, # 2017 [facility] 30 tab, 0 [facility] Refill(s) heparin 5,000 unit, 1 No Longer mL, Route: Active 2016 [facility] SUB-Q, Drug [facility] form: INJ, Q8H, Start date: 01/09/17 16:00:00 CDT, Duration: 30 day, Stop date: 02/08/17 8:00:00 CDTNotes: porcine heparin gabapentin 100 300 mg, 1 cap, No Longer MG Oral Capsule Route: PO, Drug Active 2016 [facility] form: CAP, City Bedtime, Dosing Weight 76.007, kg, Start date: 01/08/17 21:00:00 CDT, Duration: 30 day, Stop date: 02/06/17 21:00:00 CDTNotes: (Same as: Neurontin) Saline Flush 10 ml, Route: Inactive 0.9% IVP, Drug Form: 2016 [facility] INJ, Dosing [facility] Weight 76.007, kg, Q12H, Start date: 01/08/17 21:00:00 CDT, Duration: 30 day, Stop date: 02/07/17 9:00:00 CDT Hydroxyzine 50 mg, 2 tab, No Longer Route: PO, Drug Active 2016 [facility] form: TAB, TID, [facility] Dosing Weight 76.007, kg, Start date: 01/08/17 19:00:00 CDT, Duration: 30 day, Stop date: 02/07/17 17:00:00 CDTNotes: (Same as: Atarax) Avoid alcohol. ARIPiprazole 10 mg, 2 tab, No Longer Route: PO, Drug Active 2016 [facility] form: TAB, City Daily, Dosing Weight 76.007, kg, Start date: 01/08/17 19:00:00 CDT, Duration: 30 day, Stop date: 02/07/17 9:00:00 CDTNotes: Non-Formulary Drug. (Same as: Abilify) Amlodipine 10 mg, 2 tab, No Longer Route: PO, Drug Active 2016 [facility] form: TAB, [facility] Daily, Dosing Weight 76.007, kg, Start date: 01/08/17 18:26:00 CDT, Duration: 30 day, Stop date: 02/07/17 9:00:00 CDTNotes: (Same as: Norvasc) Sertraline 50 mg, 1 tab, No Longer Route: PO, Drug Active 2016 [facility] form: TAB, [facility] Daily, Dosing Weight 76.007, kg, Start date: 01/08/17 18:25:00 CDT, Duration: 30 day, Stop date: 02/07/17 9:00:00 CDTNotes: (Same as: Zoloft) Clonidine 0.2 mg, 2 tab, No Longer Hydrochloride Route: PO, Drug Active 2016 [facility] 0.2 MG Oral form: TAB, TID, [facility] Tablet Dosing Weight 76.007, kg, Start date: 01/08/17 18:24:00 CDT, Duration: 30 day, Stop date: 02/07/17 17:00:00 CDTNotes: (Same As: Catapres) 200 ACTUAT 2.49 mg, 3 mL, No Longer Albuterol 0.09 Route: NEB, Active 2016 [facility] MG/ACTUAT Drug Form: [facility] Metered Dose SOLN, Dosing Inhaler [ProAir Weight 76.007, HFA] kg, RQID, PRN Wheezing, Start date: 01/08/17 18:00:00 CDT, Duration: 30 day, Stop date: 02/07/17 17:59:00 CDTNotes: SEE RT DOCUMENTATION (Same as: Proventil) Hydralazine 10 mg, 0.5 mL, No Longer Route: IV, Drug Active 2016 [facility] form: INJ, Q4H, [facility] Dosing Weight 76.007, kg, PRN Elevated BP, Start date: 01/08/17 17:42:00 CDT, Duration: 30 day, Stop date: 02/07/17 17:41:00 CDTNotes: (Same as: Apresoline) Push over 5 minutes Clonidine 0.1 mg=0.5 tab, Active Hydrochloride PO, TID, 0 2016 [facility] 0.2 MG Oral Refill(s) [facility] Tablet ARIPiprazole 10 10 mg=1 tab, Active mg oral tablet PO, Daily, # 30 2016 [facility] tab, 0 [facility] Refill(s) Amlodipine 10 mg, PO, Active Daily, 0 2016 [facility] Refill(s) [facility] sertraline 50 50 mg=1 tab, Active mg oral tablet PO, Daily, 0 2016 [facility] Refill(s) [facility] gabapentin 100 300 mg=3 cap, Active MG Oral Capsule PO, Bedtime, 0 2016 [facility] Refill(s) [facility] Hydroxyzine 50 mg, PO, TID, Active 0 Refill(s) 2016 [facility] Enoxaparin 30 mg, 0.3 mL, No Longer Route: SUB-Q, [facility] 2016 [facility] Drug form: INJ, [facility] [id number], Dosing Weight 76.007, kg, Start date: 01/08/17 17:00:00 CDT, Stop date: 02/06/17 17:00:00 CDTNotes: (Same as: Lovenox) aspirin 81 mg 81 mg, 1 tab, No Longer tablet, enteric Route: PO, Drug [facility] 2016 [facility] coated form: ECTAB, [facility] Daily, Dosing Weight 76.007, kg, Start date: 01/08/17 16:49:00 CDT, Duration: 30 day, Stop date: 02/07/17 9:00:00 CDTNotes: Do not crush or chew. (Same As: Ecotrin) Famotidine 20 mg, 1 tab, No Longer Route: PO, Drug Active 2016 [facility] form: TAB, [facility] Q12H, Dosing Weight 76.007, kg, Start date: 01/08/17 16:49:00 CDT, Duration: 30 day, Stop date: 02/07/17 9:00:00 CDTNotes: (Same as: Pepcid) Sodium Chloride 25 mL, Route: No Longer 0.9% IV IVP, Start Active [address] [place] [address] date: 01/08/17 [facility] 16:48:00 CDT, Duration: 30 day, Stop date: 02/07/17 16:47:00 CDT, PRN Line Flush BD Normal 10 mL, Route: No Longer Saline Flush IVP, Drug Form: Active 2016 [facility] INJ, PRN, PRN City Line Flush, Start date: 01/08/17 16:48:00 CDT, Duration: 30 day, Stop date: 02/07/17 16:47:00 CDTNotes: (Same as: BD Posiflush) BD Normal 5 mL, Route: No Longer Saline Flush IVP, Drug Form: Active 2016 [facility] INJ, PRN, PRN [place] Flush, Start date: 01/08/17 16:47:00 CDT, Duration: 30 day, Stop date: 02/07/17 16:46:00 CDTNotes: (Same as: BD Posiflush) Saline Flush 10 ml, Route: Inactive 0.9% IVP, Drug Form: 2016 [facility] INJ, Dosing City Weight 76.007, kg, PRN, PRN Line Flush, Start date: 01/08/17 16:41:00 CDT, Duration: 30 day, Stop date: 02/07/17 16:40:00 CDT Allergies, Adverse Reactions, Alerts Substance Category Reaction Severity Reaction Status Date Comments Source type Reported Immunizations Immunization Date Site Status Last Comments Source Given Updated pneumococcal Right completed [facility] 13-valent vaccine 7 [facility] tetanus-diphtheri Right completed [facility] [facility] Results Order Name Results Value Reference Date Interpretation Comments Source Range Chest 2 Chest 2 EXAM: XR CHEST 1 VIEW 06/25 - [place] views DX views DX /2018 - [facility] DATE: 06/25/2018 5:32 EMERGENCY MEDICINE NURSE PRACTITIONER Read by: Rocío Smalls MD Dictated Date/time: 06/25/18 09:13 Electronically Signed by: Rocío Smalls MD 06/25/18 09:14 FINAL REPORT INDICATION: - bilateral patchy opacities COMPARISON: 06/24/2018 TECHNIQUE: AP chest. IMPRESSION: 1. Stable enlarged cardiomediastinal silhouette and median sternotomy wires. Atherosclerotic changes seen the aortic arch. 2. Patchy bilateral opacities seen the lower lungs may represent atelectasis, aspiration, pneumonia or dependent edema. No new lung opacities noted. 3. Demonstration of small right pleural effusion. 4. No pneumothorax. Chest 1view Chest 1view EXAM: XR CHEST 1 VIEW 06/24 - [place] DX DX /2017 - [facility] DATE: 06/24/2018 12:03 EMERGENCY MEDICINE NURSE PRACTITIONER Read by: Deloris Mccormick MD Dictated Date/time: 06/24/18 15:17 Electronically Signed by: Deloris Mccormick MD 06/24/18 17:18 FINAL REPORT INDICATION: - icu ad. FINDINGS: Comparison is made to 08/05/2013. There has been interval median sternotomy presumably for CABG. Heart is slightly prominent but not significantly changed. Aortic arch calcification. Patchy bilateral lower lobe opacities could be due to atelectasis, aspiration or pneumonia. Small right pleural effusion. IMPRESSION: 1. Patchy bilateral lower lobe opacities. 2. Small right pleural effusion. CHEM PANEL eGFR 14 01/10 Result Comment: [...] not recommended in the following populations: [address] Individuals with unstable creatinine concentrations, including [...] 3.84 mg/dL 0.50 - 01/10 Lvl 1.40 /2016 [facility] CHEM PANEL Calcium Lvl 8.3 mg/dL 8.5 - 10.5 01/10 [facility] CHEM PANEL AGAP 10.1 meq/L 10.0 - 07 MH 20.0 [facility] CHEM PANEL CO2 32 meq/L 24 - 32 01/10 [facility] CHEM PANEL Chloride Lvl 102 meq/L 95 - 109 01/10 [facility] CHEM PANEL Potassium 4.1 meq/L 3.5 - 5.1 01/10 Lvl [facility] CHEM PANEL Sodium Lvl 140 meq/L 135 - 145 01/10 [facility] CHEM PANEL BUN 9 mg/dL 7 - 22 01/10 [facility] CHEM PANEL Glucose Lvl 91 mg/dL 70 - 99 01/10 [facility] CHEM PANEL Phosphorus 2.6 mg/dL 2.5 - 4.5 01/10 [facility] IMMUNOLOGY Hep Bs Ag Negative Negative 01/09 [facility] (01/09/17 6:45 PM) DRUG SCREEN UDS Note See Note 01/08 [facility] (01/08/17 6:00 PM) DRUG SCREEN U Benzodia Negative Negative 01/08 [facility] (01/08/17 6:00 PM) DRUG SCREEN U Pinky Scr Negative Negative 01/08 [facility] (01/08/17 6:00 PM) DRUG SCREEN U Cocaine Negative Negative 01/08 [facility] (01/08/17 6:00 PM) DRUG SCREEN U Cannab Scr Negative Negative 01/08 [facility] (01/08/17 6:00 PM) DRUG SCREEN U Phencyc Negative Negative 01/08 [facility] (01/08/17 6:00 PM) DRUG SCREEN U Opiate Scr Negative Negative 01/08 [facility] (01/08/17 6:00 PM) DRUG SCREEN U Amph Scr Negative Negative 01/08 [facility] (01/08/17 6:00 PM) URINE AND UA <=1.0 0.1 - 1.0 01/08 STOOL Urobilinogen mg/dL /2016 [facility] URINE AND UA Ketones Negative 01/08 STOOL [facility] URINE AND UA Color Straw 01/08 STOOL [facility] URINE AND UA pH >=9.0 5.0 - 8.0 01/08 [facility]08[facility]17 6:00 PM) URINE AND UA RBC null 0 - 2 01/08 STOOL [facility] URINE AND UA WBC 1 /HPF 0 - 5 01/08 STOOL [facility] URINE AND UA Glucose Negative Negative 01/08 STOOL mg/dL mg/dL [facility] URINE AND UA Spec Grav 1.004 <=1.030 01/08 STOOL [facility] URINE AND UA Nitrite Negative Negative 01/08 STOOL [facility] (01/08/17 6:00 PM) [facility] URINE AND UA Protein 30 mg/dL Negative 01/08 STOOL mg/dL /2016 [facility] URINE AND UA Turbidity Clear Clear 01/08 STOOL [facility] (01/08/17 6:00 PM) [facility] URINE AND UA Bili Negative Negative 01/08 STOOL [facility] *NA* [facility] (01/08/17 6:00 PM) URINE AND UA Blood Negative Negative 01/08 STOOL [facility] (01/08/17 6:00 PM) [facility] URINE AND UA Mucus Few /LPF None Seen 01/08 STOOL /LPF /2016 [facility] URINE AND UA Sq Epi Few /LPF Few /LPF 01/08 STOOL [facility] URINE AND UA Leuk Est Negative Negative 01/08 STOOL [facility] (01/08/17 6:00 PM) [facility] URINE AND UA Bacteria Occasional None Seen 01/08 STOOL /HPF /HPF /2016 [facility] HEMATOLOGY PTT 36.2 s 22.9 - 01/08 35.8 [facility] HEMATOLOGY INR 1.05 0.85 - 01/08 1.17 [facility] HEMATOLOGY PT 13.9 s 12.0 - 01/08 14.7 [facility] LIPIDS VLDL 22 01/08 [facility] LIPIDS LDL 50 mg/dL <=99 mg/dL 01/08 (Calculated) [facility] LIPIDS Chol 145 mg/dL <=199 01/08 mg/dL [facility] LIPIDS Trig 109 mg/dL <=149 01/08 mg/dL [facility] LIPIDS HDL 73 mg/dL >=61 mg/dL 01/08 [facility] LIPIDS CHD Risk 1.99 3.90 - 01/08 5.80 [facility] SPECIAL Hgb A1C 4.6 % <=5.6 % 01/08 CHEMISTRY /2016 [facility] CHEM PANEL B/C Ratio 3 6 - 25 01/08 [facility] CHEM PANEL AGAP 14.4 meq/L 10.0 - 01/08 MH 20.0 [facility] CHEM PANEL Globulin 5.5 g/dL 2.7 - 4.2 01/08 [facility] CHEM PANEL A/G Ratio 0.6 0.7 - 1.6 01/08 [facility] CHEM PANEL eGFR 8 01/08 Result Comment: [...] not recommended in the following populations: [address] Individuals with unstable creatinine concentrations, including [...] Lvl 85 mg/dL 70 - 99 01/08 [facility] CHEM PANEL CO2 26 meq/L 24 - 32 01/08 [facility] CHEM PANEL ALT 14 unit/L 0 - 65 01/08 [facility] CHEM PANEL Creatinine 6.23 mg/dL 0.50 - 01/08 Lvl 1.40 [facility] CHEM PANEL Albumin Lvl 3.3 g/dL 3.5 - 5.0 01/08 [facility] CHEM PANEL BUN 16 mg/dL 7 - 22 01/08 [facility] CHEM PANEL AST 24 unit/L 0 - 37 01/08 [facility] CHEM PANEL Bili Total 0.5 mg/dL 0.2 - 1.3 01/08 [facility] CHEM PANEL Total 8.8 g/dL 6.4 - 8.4 01/08 [facility] CHEM PANEL Alk Phos 215 unit/L 39 - 136 01/08 [facility] CHEM PANEL Chloride Lvl 101 meq/L 95 - 109 01/08 [facility] CHEM PANEL Potassium 5.4 meq/L 3.5 - 5.1 01/08 MH Lvl [facility] CHEM PANEL Calcium Lvl 9.1 mg/dL 8.5 - 10.5 / /2016 [facility] CHEM PANEL Sodium Lvl 136 meq/L 135 - 145 / /2016 [facility] CHEM PANEL Magnesium 2.4 mg/dL 1.8 - 2.4 / MH Lvl /2016 [facility] HEMATOLOGY Hgb 10.5 g/dL 12.0 - 01/08 MH 16.0 /2016 [facility] HEMATOLOGY Hct 31.5 % 36.0 - 07 MH 48.0 /2016 [facility] HEMATOLOGY WBC 9.0 K/CMM 3.7 - 10.4 07/ /2016 [facility] HEMATOLOGY RBC 3.70 M/CMM 4.20 - 01/08 MH 5.40 /2016 [facility] HEMATOLOGY MCV 85.3 fL 80.0 - 01/08 MH 98.0 [facility] HEMATOLOGY MCH 28.5 pg 27.0 - 01/08 MH 31.0 [facility] HEMATOLOGY MCHC 33.4 g/dL 32.0 - 01/08 MH 36.0 [facility] HEMATOLOGY RDW 12.9 % 11.5 - 01/08 MH 14.5 [facility] HEMATOLOGY Platelet 212 K/CMM 133 - 450 01/08 [facility] HEMATOLOGY MPV 9.0 fL 7.4 - 10.4 01/08 [facility] HEMATOLOGY Monocytes 12.8 % 2.0 - 12.0 / [facility] HEMATOLOGY Segs 43.7 % 45.0 - 01/08 MH 75.0 [facility] HEMATOLOGY Lymphocytes 40.4 % 20.0 - 01/08 MH 40.0 [facility] HEMATOLOGY Segs-Bands # 4.0 K/CMM 1.5 - 8.1 01/08 [facility] HEMATOLOGY Eosinophils 1.9 % 0.0 - 4.0 / [facility] HEMATOLOGY Monocytes # 1.2 K/CMM 0.0 - 0.8 / [facility] HEMATOLOGY Lymphocytes 3.7 K/CMM 1.0 - 5.5 01/08 MH # /2016 [facility] HEMATOLOGY Basophils 1.2 % 0.0 - 1.0 01/08 [facility] HEMATOLOGY Eosinophils 0.2 K/CMM 0.0 - 0.5 / MH # /2016 [facility] HEMATOLOGY Basophils # 0.1 K/CMM 0.0 - 0.2 01/08 [facility] Brain wo Brain wo Brain wo contrast MRI 01/08/2017 4:41 PM CDT 01/08 - contrast contrast MRI /2016 - [facility] 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[facility], [place]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 [...] Comments Source Systolic (mm Hg) 128 01/10/2017 [facility] Diastolic (mm Hg) 72 01/10/2017 [facility] Respitory Rate 14 01/10/2017 [facility] Systolic (mm Hg) 100 01/10/2017 [facility] Diastolic (mm Hg) 72 01/10/2017 [facility] Respitory Rate 24 01/10/2017 [facility] Systolic (mm Hg) 118 01/10/2017 [facility] Diastolic (mm Hg) 60 01/10/2017 [facility] Respitory Rate 19 01/10/2017 [facility] BMI Calculated 32.73 01/08/2017 [facility] Weight 76.007 01/08/2017 [facility] Height 152.4 cm 01/08/2017 [facility] Encounters Location Location Encounter Encounter Reason Attending ADM DC Status Source Details Type Number For Provider Date Date Visit [facility] [id number] Tom 01/09 01/10 ANNE Muir /2016 [facility] Procedures Procedure Code Date Perfomer Comments Source section [id number] [facility] Cholecystectomy [id number] [facility]
--- OUTSIDE RECORDS SUMMARY | 2018-09-30 15:45 | XMS REPORT ---
:1960 Author Organization e[employer] Care Team Providers Name Role Phone JovelPatrick Provider Role Unavailable Allergies, Adverse Reactions, Alerts Substance Reaction Event Type N.K.D.A. Info Not Available Non Drug Allergy Problems Problem Type Condition Code Onset Dates Condition Status Problem Coronary artery disease involving I25.10 Active [place] coronary artery of [place] heart, angina presence unspecified Problem History of CVA with residual I69.30 Active deficit Problem Chronic obstructive pulmonary J44.9 Active disease, unspecified COPD type Problem History of CVA (cerebrovascular Z86.73 Active accident) Assessment Chronic obstructive pulmonary J44.9 Active disease, unspecified COPD type Problem Depression with anxiety F41.8 Active Assessment Tobacco use disorder F17.200 Active Assessment History of pulmonary embolism Z86.711 Active Problem History of pulmonary embolism Z86.711 Active Problem Vascular dementia without F01.50 Active behavioral disturbance Problem Dependence on renal dialysis Z99.2 Active Problem End stage renal disease N18.6 Active Problem Tobacco use disorder F17.200 Active Assessment Insomnia, unspecified type G47.00 Active Assessment Depression with anxiety F41.8 Active Assessment Vascular dementia without F01.50 Active behavioral disturbance Assessment History of CVA with residual I69.30 Active deficit Assessment HTN, goal below 130/80 I10 Active Assessment Dependence on renal dialysis Z99.2 Active Problem HTN, goal below 130/80 I10 Active Assessment Coronary artery disease involving I25.10 Active [place] coronary artery of [place] heart, angina presence unspecified Assessment End stage renal disease N18.6 Active Problem Insomnia, unspecified type G47.00 Active Medications Medication Code Code Instructions Start End Status Dosage System Date Date Carvedilol [facility] 50452286541 12.5 MG Orally Active as directed BID Clonidine HCl [facility] 00950621398 0.2 MG Orally Active 1 tablet Twice a day Isosorbide [facility] 85124422853 30 MG Orally Active 1 tablet in Mononitrate Once a day the morning Renvela [facility] 51806196743 800 MG Orally Apr 07, Active 1 tablet Three times a 2019 with meals day Ramipril [facility] 74550517643 5 MG Orally Active 1 capsule Once a day Trazodone HCl [facility] 95306958764 50 MG Orally Active 1 tablet at Once a day bedtime as needed Results No Known Results Summary Purpose eClinicalWorks Submission
--- OUTSIDE RECORDS SUMMARY | 2018-09-30 15:45 | XMS REPORT ---
:1960 Author Organization [employer] Care Team Providers Name Role Phone Patrick Jovel Provider Role Unavailable Allergies, Adverse Reactions, Alerts Substance Reaction Event Type N.K.D.A. Info Not Available Non Drug Allergy Problems Problem Type Condition Code Onset Dates Condition Status Problem Coronary artery disease involving I25.10 Active [place] coronary artery of [place] heart, angina presence unspecified Problem History of CVA with residual I69.30 Active deficit Problem Chronic obstructive pulmonary J44.9 Active disease, unspecified COPD type Problem History of CVA (cerebrovascular Z86.73 Active accident) Problem Depression with anxiety F41.8 Active Problem History of pulmonary embolism Z86.711 Active Problem Vascular dementia without F01.50 Active behavioral disturbance Problem Dependence on renal dialysis Z99.2 Active Problem End stage renal disease N18.6 Active Problem Tobacco use disorder F17.200 Active Assessment Acute non-recurrent frontal J01.10 Active sinusitis Problem HTN, goal below 130/80 I10 Active Assessment Cough R05 Active Problem Insomnia, unspecified type G47.00 Active Medications Medication Code Code Instructions Start End Date Status Dosage System Date Benzonatate [facility] 53636594447 200 MG Orally Aug 24August Active 1 capsule Three times a 2019 2018 day Renvela ND 93015480512 800 MG Orally Apr 07, Active 1 tablet Three times a 2018 with meals day Ventolin HFA ND 33848645843 108 (90 Base) Jul 18, Active 2 puffs as MCG/ACT 2019 needed Inhalation every 6 hrs Clonidine HCl ND 63451068474 0.2 MG Orally Active 1 tablet Twice a day Ramipril ND 16297699649 5 MG Orally Active 1 capsule Once a day Carvedilol ND 35547530905 12.5 MG Orally Active as directed BID Trazodone HCl ND 87670874882 50 MG Orally Active 1 tablet at Once a day bedtime as needed Isosorbide ND 42762480392 30 MG Orally Active 1 tablet in Mononitrate Once a day the morning Azithromycin ND 65891970000 250 MG Orally Aug 24, Aug 29, Active 2 tablets Once a day 2018 2018 on the first day, then 1 tablet daily for 4 days Results Name Result Date Reference Range Unit Abnormality Flag STREP A RAPID ----Result NEGATIVE [id number] Summary Purpose eClinicalWorks Submission
--- OUTSIDE RECORDS SUMMARY | 2018-09-30 15:45 | XMS REPORT ---
:1960 Author Organization eClinicalWorks Care Team Providers Name Role Phone Med Patrick Provider Role Unavailable Allergies No Known Allergies Problems Problem Type Condition Code Onset Dates Condition Status Problem Coronary artery disease involving I25.10 Active [place] coronary artery of [place] heart, angina presence unspecified Problem History of CVA with residual I69.30 Active deficit Problem Chronic obstructive pulmonary J44.9 Active disease, unspecified COPD type Problem HTN, goal below 130/80 I10 Active Problem Insomnia, unspecified type G47.00 Active Problem History of CVA (cerebrovascular Z86.73 Active accident) Problem Depression with anxiety F41.8 Active Problem History of pulmonary embolism Z86.711 Active Problem Vascular dementia without F01.50 Active behavioral disturbance Problem Dependence on renal dialysis Z99.2 Active Problem End stage renal disease N18.6 Active Problem Tobacco use disorder F17.200 Active Medications Medication Code Code Instructions Start End Date Status Dosage System Date Ventolin HFA [facility] [id number] 108 (90 Base) Jul 18, Active 2 puffs as MCG/ACT 2019 needed Inhalation every 6 hrs Results No Known Results Summary Purpose eClinicalWorks Submission
[2018-09-30 17:03] LABS: Arterial Blood Carboxyhemoglob 1.6 % (0-1.5); Blood Gas Oxyhemoglobin 90.2 % (94-97)
[2018-09-30 17:17] LABS: Absolute Lymphocytes (CBC) 1.1 K/uL (0.7-4.9); Absolute Monocytes 1.4 K/uL (0.1-1.3); Absolute Neutrophil 2.4 K/uL (1.8-8.0); Basophils % 1.3 % (0-1.3); Eosinophils % 2.1 % (0-4.4); Hematocrit 38.3 % (36.0-45.0); Lymphocytes % 21.9 % (15.3-44.8); MPV 8.1 fL (7.6-11.3); RBC Red Blood Cell Count 4.49 M/uL (3.86-4.86)
[2018-09-30 17:42] LABS: Potassium 4.2 mmol/L (3.5-5.1); Troponin (Emerg Dept Use Only) 0.03 ng/mL (0.0-0.045)
--- NOTE | 2018-09-30 18:03 | EDPHYS ---
Physician Documentation [facility] Name: Michelle Ochoa Age: 58 yrs Sex: Female : 1960 Arrival Date: 09/30/2018 Time: 15:44 Bed 13 Private MD: ED Physician Duong Vasquez HPI: 09/30 16:28 This 58 yrs old Black Female presents to ER via Ambulatory with complaints of Flu snw Symptoms. 16:28 Onset: The symptoms/episode began/occurred suddenly, last night. Associated signs and snw symptoms: Pertinent positives: cough, shortness of breath. Modifying factors: The patient symptoms are alleviated by nothing, the patient symptoms are aggravated by lying down. It is unknown whether or not the patient has had similar symptoms in the past. It is unknown whether or not the patient has recently seen a physician. Completed dialysis Monday. Historical: - Allergies: 15:55 No Known Allergies; la1 - Home Meds: 16:02 albuterol sulfate 90 mcg/actuation Inhl HFAA [Active]; clonidine HCl 0.2 mg Oral tab 1 tw2 tab 2 times per day [Active]; carvedilol 6.25 mg Oral tab 1 tab every 12 hours [Active]; isosorbide mononitrate 30 mg Oral Tb24 1 tab once daily [Active]; Lasix 40 mg Oral tab 1 tab once daily [Active]; omeprazole 20 mg Oral cpDR 1 cap once daily [Active]; ramipril 5 mg Oral cap 1 cap once daily [Active]; Renvela 800 mg Oral tab 1 tab 3 times per day [Active]; trazodone 50 mg Oral tab 1 tab 3 times per day [Active]; - PMHx: 15:55 Anemia; CVA; Dialysis- T/Th/Sat; ENDOCARDITIS; Hypertension; kidney failure; PATRICK; Renal la1 Disease; - PSHx: 16:02 ; Cholecystectomy; YOLANDA fistula; tw2 - Immunization history:: Adult Immunizations up to date. - Social history:: Smoking status: Patient uses tobacco products, smokes one-half pack cigarettes per day. - Ebola Screening: : No symptoms or risks identified at this time. ROS: 16:28 Constitutional: Negative for fever, chills, and weight loss, Eyes: Negative for injury, snw pain, redness, and discharge, ENT: Negative for injury, pain, and discharge, Neck: Negative for injury, pain, and swelling, Cardiovascular: Negative for chest pain, palpitations, and edema, Respiratory: Positive for shortness of breath, cough, No wheezing or pleuritic chest pain, Abdomen/GI: Negative for abdominal pain, nausea, vomiting, diarrhea, and constipation, Back: Negative for injury and pain, : Negative for injury, bleeding, discharge, and swelling, MS/Extremity: Negative for injury and deformity, Skin: Negative for injury, rash, and discoloration, Neuro: Negative for headache, weakness, numbness, tingling, and seizure. Exam: 16:14 Constitutional: This is a well developed, well nourished patient who is awake, alert, snw and in no acute distress. Head/Face: Normocephalic, atraumatic. Eyes: Pupils equal round and reactive to light, extra-ocular motions intact. Lids and lashes normal. Conjunctiva and sclera are non-icteric and not injected. Cornea within normal limits. Periorbital areas with no swelling, redness, or edema. ENT: Nares patent. No nasal discharge, no septal abnormalities noted. Tympanic membranes are normal and external auditory canals are clear. Oropharynx with no redness, swelling, or masses, exudates, or evidence of obstruction, uvula midline. Mucous membranes moist. Neck: Trachea midline, no thyromegaly or masses palpated, and no cervical lymphadenopathy. Supple, full range of motion without nuchal rigidity, or vertebral point tenderness. No Meningismus. Chest/axilla: Normal chest wall appearance and motion. Nontender with no deformity. No lesions are appreciated. Cardiovascular: Regular rate and rhythm with a normal S1 and S2. No gallops, murmurs, or rubs. Normal PMI, no JVD. No pulse deficits. 16:14 Abdomen/GI: Soft, non-tender, with normal bowel sounds. No distension or tympany. No guarding or rebound. No evidence of tenderness throughout. Back: No spinal tenderness. No costovertebral tenderness. Full range of motion. Skin: Warm, dry with normal turgor. Normal color with no rashes, no lesions, and no evidence of cellulitis. MS/ Extremity: Pulses equal, no cyanosis. Neurovascular intact. Full, normal range of motion. Neuro: Awake and alert, GCS 15, oriented to person, place, time, and situation. Cranial nerves II-XII grossly intact. Motor strength 5/5 in all extremities. Sensory grossly intact. Cerebellar exam normal. Normal gait. 16:14 Respiratory: mild respiratory distress is noted, moderate respiratory distress is noted, Respirations: shallow respirations, that is moderate, tachypnea, Breath sounds: decreased breath sounds, wet cough. Vital Signs: 15:55 BP 100 / 65; Pulse 60; Resp 16; Temp 97.5; Pulse Ox 98% on R/A; Weight 84.37 kg; Height la1 5 ft. 0 in. (152.40 cm); Pain 6/10; 17:00 BP 126 / 59; Pulse 63; Resp 22; Pulse Ox 96% on R/A; ph 18:00 BP 133 / 60; Pulse 63; Resp 18; Pulse Ox 96% on R/A; ph 18:48 BP 151 / 86; Pulse 72; Resp 18; Pulse Ox 100% on Nebulizer Mask; ph 15:55 Body Mass Index 36.33 (84.37 kg, 152.40 cm) la1 MDM: 16:08 Patient medically screened. snw 18:03 Data reviewed: vital signs, nurses notes. Data interpreted: Pulse oximetry: on room air snw is 98 %. Interpretation: acceptable. Counseling: I had a detailed discussion with the patient and/or guardian regarding: the historical points, exam findings, and any diagnostic results supporting the discharge/admit diagnosis, lab results, radiology results, the need for outpatient follow up, to return to the emergency department if symptoms worsen or persist or if there are any questions or concerns that arise at home, smoking cessation. Special discussion: Based on the patient's history, exam, and Dx evaluation, there is no indication for emergent intervention or inpatient Tx. It is understood by the patient/guardian that if the Sx's persist or worsen they need to return immediately for re-evaluation. Based on the history and exam findings, there is no indication for further emergent testing or inpatient evaluation. I discussed with the patient/guardian the need to see the executive marketing assistant for further evaluation of the symptoms. I discussed with the patient/guardian the need to see the primary care provider for further evaluation of the symptoms. 09/30 16:16 Order name: ABG; Complete Time: 17:09 snw 09/30 16:27 Order name: Blood Culture Adult (2) snw 09/30 16:27 Order name: CBC with Diff; Complete Time: 17:23 snw 09/30 16:27 Order name: Chem 7; Complete Time: 18:01 snw 09/30 16:28 Order name: Troponin (emerg Dept Use Only); Complete Time: 18:01 snw 09/30 16:28 Order name: BNP; Complete Time: 18:01 snw 09/30 16:07 Order name: Chest Pa And Lat (2 Views) XRAY; Complete Time: 18:21 snw 09/30 16:07 Order name: EKG - Nurse/Tech; Complete Time: 16:12 snw 09/30 16:28 Order name: Procalcitonin; Complete Time: 18:02 w 09/30 16:28 Order name: SL; Complete Time: 17:58 snw 09/30 16:35 Order name: Potassium; Complete Time: 17:00 snw Administered Medications: 18:15 Drug: Albuterol - atroVENT (3:1) (2.5 mg - 0.5 mg) 3 ml Route: Nebulizer; ph 18:49 Follow up: Response: No adverse reaction ph Disposition: 09/30/18 18:02 Discharged to Home. Impression: Cough, Dyspnea, unspecified. - Condition is Stable. - Discharge Instructions: Heart Failure, Shortness of Breath, Smoking Hazards, Cool Mist Vaporizer, Cough, Adult. - Prescriptions for Albuterol Sulfate 90 mcg/actuation - inhale 1-2 puff by INHALATION route every 4-6 hours; 1 Inhaler. - Medication Reconciliation Form, Thank You Letter, Antibiotic Education, Prescription Opioid Use form. - Follow up: Emergency Department; When: As needed; Reason: Worsening of condition. Follow up: Private Physician; When: Tomorrow; Reason: Recheck today's complaints, Continuance of care, Re-evaluation by your physician. Addendum: 10/03/2018 07:05 Co-signature as Attending Physician, Duong Vasquez MD. r n Signatures: Dispatcher [employer] EDMS Kristine Draper, MARSHMALLOW RUNNER-C MARSHMALLOW RUNNER-Csnw Duong Vasquez MD MD rn Attema, Lee, RN Sneha Sanchez RN RN Kristin Gomez RN RN tw2 Debra Ryder RN RN ea Corrections: (The following items were deleted from the chart) 09/30 20:08 18:02 09/30/2018 18:02 Discharged to Home. Impression: Cough; Dyspnea, unspecified. ea Condition is Stable. Discharge Instructions: Shortness of Breath, Smoking Hazards, Cool Mist Vaporizer, Cough, Adult. Prescriptions for Albuterol Sulfate 90 mcg/actuation - inhale 1-2 puff by INHALATION route every 4-6 hours; 1 Inhaler. and Forms are Medication Reconciliation Form, Thank You Letter, Antibiotic Education, Prescription Opioid Use. Follow up: Emergency Department; When: As needed; Reason: Worsening of condition. Follow up: Private Physician; When: Tomorrow; Reason: Recheck today's complaints, Continuance of care, Re-evaluation by your physician. snw
--- NOTE | 2018-09-30 18:03 | ER ---
Nurse's Notes [facility] Name: Michelle Ochoa Age: 58 yrs Sex: Female : 1960 Arrival Date: 09/30/2018 Time: 15:44 Bed 13 Private MD: Diagnosis: Cough;Dyspnea, unspecified Presentation: 09/30 15:54 Presenting complaint: Patient states: I started feeling SOB last night and it is much la1 worse this morning, I cant breathe when I lay down and my sputum is very thick. Transition of care: patient was not received from another setting of care. Onset of symptoms was September 30, 2018. Risk Assessment: Do you want to hurt yourself or someone else? Patient reports no desire to harm self or others. Initial Sepsis Screen: Does the patient meet any 2 criteria? No. Patient's initial sepsis screen is negative. Does the patient have a suspected source of infection? No. Patient's initial sepsis screen is negative. Care prior to arrival: None. 15:54 Method Of Arrival: Ambulatory la1 15:54 Acuity: ZAID 3 la1 Historical: - Allergies: 15:55 No Known Allergies; la1 - Home Meds: 16:02 albuterol sulfate 90 mcg/actuation Inhl HFAA [Active]; clonidine HCl 0.2 mg Oral tab 1 tw2 tab 2 times per day [Active]; carvedilol 6.25 mg Oral tab 1 tab every 12 hours [Active]; isosorbide mononitrate 30 mg Oral Tb24 1 tab once daily [Active]; Lasix 40 mg Oral tab 1 tab once daily [Active]; omeprazole 20 mg Oral cpDR 1 cap once daily [Active]; ramipril 5 mg Oral cap 1 cap once daily [Active]; Renvela 800 mg Oral tab 1 tab 3 times per day [Active]; trazodone 50 mg Oral tab 1 tab 3 times per day [Active]; - PMHx: 15:55 Anemia; CVA; Dialysis- T/Th/Sat; ENDOCARDITIS; Hypertension; kidney failure; PATRICK; Renal la1 Disease; - PSHx: 16:02 ; Cholecystectomy; YOLANDA fistula; tw2 - Immunization history:: Adult Immunizations up to date. - Social history:: Smoking status: Patient uses tobacco products, smokes one-half pack cigarettes per day. - Ebola Screening: : No symptoms or risks identified at this time. Screenin:58 Abuse screen: Denies threats or abuse. Nutritional screening: No deficits noted. tw2 Tuberculosis screening: No symptoms or risk factors identified. Fall Risk None identified. Assessment: 16:30 General: Appears in no apparent distress. uncomfortable, well groomed, Behavior is ph calm, cooperative, appropriate for age, Denies fever. Pain: Denies pain. Neuro: Level of Consciousness is awake, alert, obeys commands, Oriented to person, place, time, situation. Cardiovascular: Capillary refill < 3 seconds in bilateral fingers Patient's skin is warm and dry. Respiratory: Reports shortness of breath at rest cough that is productive, Airway is patent Respiratory effort is even, labored, with nasal flaring, pursed lip, Respiratory pattern is tachypnea Breath sounds are coarse in mediastinum. GI: Patient currently denies abdominal pain, nausea, vomiting. EENT: Reports nasal congestion nasal discharge that is watery. Derm: Skin is intact, is healthy with good turgor, Skin is pink, warm \\T\\ dry. Musculoskeletal: Circulation, motion, and sensation intact. Range of motion: intact in all extremities. 17:30 Reassessment: Patient appears in no apparent distress at this time. Patient and/or ph family updated on plan of care and expected duration. Pain level reassessed. Patient is alert, oriented x 3, equal unlabored respirations, skin warm/dry/pink. Pt resting quietly, awaiting lab and radiology results, family at bedside. 18:40 Reassessment: Patient appears in no apparent distress at this time. Patient and/or ph family updated on plan of care and expected duration. Pain level reassessed. Patient is alert, oriented x 3, equal unlabored respirations, skin warm/dry/pink. Pt to be d/c home after neb tx Patient denies pain at this time. 19:15 Reassessment: Patient appears in no apparent distress at this time. Patient and/or ph family updated on plan of care and expected duration. Pain level reassessed. Patient is alert, oriented x 3, equal unlabored respirations, skin warm/dry/pink. D/C papers signed by pt, awaiting ride home, states, " My family will be back in a few minutes to get me.". 19:43 Reassessment: Patient and/or family updated on plan of care and expected duration. Pain ph level reassessed. Patient is alert, oriented x 3, equal unlabored respirations, skin warm/dry/pink. Awaiting on family to return. 20:07 Reassessment: Patient and/or family updated on plan of care and expected duration. Pain ea level reassessed. Patient is alert, oriented x 3, equal unlabored respirations, skin warm/dry/pink. Pt left with family ambulatory, tolerating well. Vital Signs: 15:55 BP 100 / 65; Pulse 60; Resp 16; Temp 97.5; Pulse Ox 98% on R/A; Weight 84.37 kg; Height la1 5 ft. 0 in. (152.40 cm); Pain 6/10; 17:00 BP 126 / 59; Pulse 63; Resp 22; Pulse Ox 96% on R/A; ph 18:00 BP 133 / 60; Pulse 63; Resp 18; Pulse Ox 96% on R/A; ph 18:48 BP 151 / 86; Pulse 72; Resp 18; Pulse Ox 100% on Nebulizer Mask; ph 15:55 Body Mass Index 36.33 (84.37 kg, 152.40 cm) la1 Vitals: 18:48 Cardiac Rhythm Assessment Sinus rhythm. ph ED Course: 15:44 Patient arrived in ED. mr 15:55 Triage completed. la1 15:56 Sneha Gates, RN is Primary Nurse. ph 15:56 Arm band placed on left wrist. la1 15:59 Kristine Draper FNP-C [facility]. snw 15:59 Duong Vasquez MD is Attending Physician. snw 15:59 Placed in gown. Bed in low position. quality assurance monitor chassis on. Pulse ox on. NIBP on. tw2 16:45 Missed attempt(s): 20 gauge in right antecubital area. mh5 17:15 Inserted saline lock: 24 gauge in right hand, using aseptic technique. Blood collected. ph 17:30 Chest Pa And Lat (2 Views) XRAY In Process Unspecified. EDMS 18:48 No provider procedures requiring assistance completed. ph 19:16 IV discontinued, intact, bleeding controlled, No redness/swelling at site. Pressure ph dressing applied. Administered Medications: 18:15 Drug: Albuterol - atroVENT (3:1) (2.5 mg - 0.5 mg) 3 ml Route: Nebulizer; ph 18:49 Follow up: Response: No adverse reaction ph Outcome: 18:02 Discharge ordered by MD. cagle 19:16 Discharged to home via wheelchair, with family. ph 19:16 Condition: improved 19:16 Discharge instructions given to patient, Instructed on discharge instructions, follow up and referral plans. medication usage, Demonstrated understanding of instructions, follow-up care, medications, Prescriptions given X 1. 20:08 Patient left the ED. ea Signatures: Dispatcher [employer] EDMS Kristine Draper, AWARD CLERK-C AWARD CLERK-Csnw Elena HendersonApollo, RN RN Sneha Luis RN RN Kristin Altamirano RN RN 2 Fide Peres [facility] Debra Ryder RN RN ea
--- NOTE | 2018-09-30 18:17 | RAD REPORT ---
EXAM DESCRIPTION: RAD - Chest Pa And Lat (2 Views) - 09/30/2018 5:33 pm CLINICAL HISTORY: Worsening shortness of breath COMPARISON: May 2018 TECHNIQUE: PA and lateral views of the chest were obtained. FINDINGS: The lungs are clear of a focal consolidation. No focal mass or lymphadenopathy seen. Inter stitial markings are prominent but not substantially different from comparison. A minimal interstitia l edema or infiltrate could be masked by the baseline pattern and shallow inspiration. Sternotomy wir es are in place. Heart size is normal and central vasculature is within normal limits. No pleural effusion or pneumothorax seen. No acute bony finding noted. No aortic abnormality. IMPRESSION: Prominent interstitial markings similar to comparison. Baseline pattern could mask a mild interstitial edema. No focal consolidation.
[2018-09-30] MEDS ORDERED: ALBUTEROL 2.5 MG/3 ML NEB SOL ONE (18:21)
[2018-09-30] MEDS ORDERED: IPRATROPIUM BROM 0.5MG/2.5ML ONE (18:21)
[2018-09-30 20:20] VITALS: TEMP 97.5
[2018-09-30 20:23] VITALS: BP 151/86; O2SAT 100
== END 2018-09-30 20:08 | disposition home or self-care (01) ==
LOC: ER 15:41
DX: R05 Cough (principal); R06.00 Dyspnea, unspecified; I12.0 Hypertensive chronic kidney disease with stage 5 chronic kidney disease or end stage renal disease; N18.6 End stage renal disease; Z86.73 Personal history of transient ischemic attack (TIA), and cerebral infarction without residual deficits; D64.9 Anemia, unspecified; F17.210 Nicotine dependence, cigarettes, uncomplicated
CPT/HCPCS: 36415; 71046; 80048; 82805; 83880; 84132; 84145; 84484; 85025; 87040; 94640; 99285

== ENCOUNTER 2019-01-19 13:13 | Emergency (ER) | payer OTHER ==
--- OUTSIDE RECORDS SUMMARY | 2019-01-19 13:16 | XMS REPORT | Clinical Summary ---
:1960 Author Organization [facility] Address [address] [place] [address] Care Team Providers Name Role Phone [place] Calixto Burrows Unavailable Maria Luisa Louie MD [...] INFLUENZA VACCINE 04/02/2018 Implants Implanted Type Area Ballet Soloist Device Shelf Model / Identifier Expiration Serial / Lot Date Eulalio Hemshld Dbl Jarrod 2.0x6.0in [id number] - [id number] Graft/Pat GETINGE 01/30/2019 [id number] / Implanted: Qty: 1 on 01/25/2016 by Sherif Bañuelos MD IND: KWADWOT:CV / [id number] Results Not on fileafter 01/18/2018 Insurance Payer Benefit Plan / Group Subscriber ID Type Phone Address [employer] [facility] [employer] xxxxxxxxx [facility] MEDICAID [place] xxxxxxxxx Medicaid Advance Directives For more information, please contact:[address] [phone] Code Status Date Activated Date Inactivated Comments Full Code 01/23/2016 1:38 PM 02/06/2016 8:06 PM This code status was determined by: Patient Full Code 01/18/2016 10:03 AM 01/18/2016 10:53 AM This code status was determined by: Patient Full Code 01/16/2016 3:39 AM 01/18/2016 10:03 AM This code status was determined by: Patient
--- OUTSIDE RECORDS SUMMARY | 2019-01-19 13:19 | XMS REPORT | Continuity of Care Document ---
:1960 Author Organization [employer] Care Team Providers Name Role Phone [employer] Unavailable Unavailable Problems Problem Status Onset Classification Date Comments Source Date Reported Hypertensive heart 07/12/19 01/17/2019 [facility] and chronic kidney 19 Medical disease with heart Center failure and with stage 5 chronic kidney disease, or end stage renal disease KIDNEY FAILURE Active 06/24/[address] ISCHEMIC STROKE Active 01/09/[address] NUMBNESS Active 01/09/[address] Methicillin Active 06/11/20 Problem 01/17/2019 06/11/09 Nares- MRSA by PCR [facility] resistant 09 Problem added by Discern Expert. [facility] Staphylococcus Center, aureus2, 3 [facility] Final: Cerebral 01/13/2017 infarction, [facility] End stage renal 01/17/2019 [facility] disease [facility] Chronic diastolic 01/17/2019 [facility] heart failure [facility] Center Acidosis 01/17/2019 [facility] Unspecified 01/17/2019 [facility] protein-calorie Medical malnutrition Center Cocaine use, 01/17/2019 [facility], Medical uncomplicated Center Patient's 01/17/2019 [facility] noncompliance with Medical other medical Center treatment and regimen Nicotine 01/17/2019 [facility] dependence, Medical cigarettes, Center uncomplicated Bipolar disorder, 01/17/2019 [facility] unspecified Medical Center Chronic 01/17/2019 [facility] obstructive Medical pulmonary disease, Center unspecified Chronic viral 01/17/2019 [facility] hepatitis C [facility] Hyperkalemia 01/17/2019 [facility] Hypertensive 01/17/2019 [facility] urgency [facility] Anemia in chronic 01/17/2019 [facility] kidney disease [facility] Center Patient's 01/17/2019 [facility] noncompliance with Medical renal dialysis Center Vascular dementia 01/17/2019 [facility] without behavioral Medical disturbance Center Dementia in other 01/17/2019 [facility] classified Center elsewhere without behavioral disturbance Hepatic failure, 01/17/2019 [facility] without coma Center 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 Medical [facility] Gallbladder Resolved Problem 01/17/2019 [facility] Heart attack Resolved Problem 01/17/2019 [facility] Hepatitis C Resolved Problem 01/17/2019 [facility] HTN (Confirmed) Resolved Problem 01/17/2019 [facility] Simple obesity Active Problem 01/17/2019 [facility] Smoker Resolved Problem 01/17/2019 [facility] CEREBRAL [facility] ILLNESS, Active UNSPECIFIED [facility] Medications Medication Details Route Status Patient Ordering Order Source Instructions Provider Date Docusate Sodium 50 mg=1 cap, Active 06/29/ [place] 50 MG Oral PO, BID, PRN 2018 Medical Capsule Constipation, [place] Take 1-2 tabs daily to maintain soft formed stools., # 180 cap, 0 Refill(s) POLYETHYLENE 17 gm=1 pkt, Active 06/29/ [place] GLYCOL 3350 GT, Daily, As 2018 Medical needed for Center constipation, 0 Refill(s) POLYETHYLENE 17 gm, 1 pkt, No Longer 06/25/ [place] GLYCOL 3350 Route: GT, Drug Active 2017 Medical form: PWDR, [place] Daily, Dosing Weight 76.007, kg, Start date: 06/25/18 9:00:00 DOUBLE NEEDLE STITCHER, Duration: 30 day, Stop date: 07/24/18 9:00:00 CSTNotes: Dissolve in 8 oz of water or juice. (Same as: Miralax) Clonidine 0.1 mg, 1 tab, No Longer 06/25/ [place] Hydrochloride Route: PO, Drug Active 2017 Medical 0.1 MG Oral form: TAB, TID, Center Tablet Dosing Weight 45.085, kg, Start date: 06/25/18 9:00:00 DOUBLE NEEDLE STITCHER, Duration: 30 day, Stop date: 07/24/18 17:00:00 CSTNotes: (Same As: Catapres) Amlodipine 10 mg, 1 tab, No Longer [facility] Route: PO, Drug Active 2017 Medical form: TAB, Center Daily, Dosing Weight 45.085, kg, Start date: 06/25/18 9:00:00 DOUBLE NEEDLE STITCHER, Duration: 30 day, Stop date: 07/24/18 9:00:00 CSTNotes: (Same as: Norvasc) Insulin regular 3 unit, 0.03 Inactive [facility] mL, Route: 2018 Medical SUB-Q, Drug Center form: SOLN, TID-Before Meals, Dosing Weight 45.085, kg, PRN Blood Glucose Results, Start date: 06/25/18 6:22:00 DOUBLE NEEDLE STITCHER, Duration: 30 day, Stop date: 07/25/18 6:21:00 CSTNotes: (Same as: Humulin R) Roll in palms of hands gently; Do not shake vigorously. "single patient use only" (Restricted to patients requiring a dose > 60 units) WASTE: F/P - Black; E - [employer] Stable for 28 days at room temperature Expires in days from D ate Glucagon 1 mg, Route: Inactive [facility] IM, Drug form: 2018 Medical PDR/INJ, PRN, Center Dosing Weight 45.085, kg, PRN Blood Glucose Results, Start date: 06/25/18 6:22:00 DOUBLE NEEDLE STITCHER, Duration: 30 day, Stop date: 07/25/18 6:21:00 DOUBLE NEEDLE STITCHER Dextrose 50% 12.5 gm, 25 mL, Inactive [facility] Syringe Route: IVP, 2018 Medical Drug Form: INJ, Center Dosing Weight 45.085, kg, PRN, PRN Blood Glucose Results, Start date: 06/25/18 6:22:00 DOUBLE NEEDLE STITCHER, Duration: 30 day, Stop date: 07/25/18 6:21:00 DOUBLE NEEDLE STITCHER NIFEdipine 30 30 mg, 1 tab, Inactive [facility] mg oral tablet, Route: PO, Drug 2018 Medical extended form: ERTAB, Center release ONCE, Dosing Weight 45.085, kg, Start date: 06/24/18 22:34:00 DOUBLE NEEDLE STITCHER, Stop date: 06/24/18 22:34:00 CSTNotes: (Same as: Adalat CC, Procardia XL) Give on empty stomach. Take 1 hour before or 2 hours after meal; "Avoid grapefruit and grapefruit juice". Do not crush Saline Flush 10 ml, Route: No Longer [place] 0.9% IVP, Drug Form: Active 2018 Medical INJ, Dosing Center Weight 76.007, kg, Q12H, Start date: 06/24/18 21:00:00 DOUBLE NEEDLE STITCHER, Duration: 30 day, Stop date: 07/24/18 9:00:00 CSTNotes: (Same as: BD Posiflush) sennosides, CORRECTION 8.6 mg, 1 tab, No Longer [place] Route: PO, Drug Active 2017 Medical Form: TAB, Center Dosing Weight 76.007, kg, Q12H, Start date: 06/24/18 21:00:00 DOUBLE NEEDLE STITCHER, Duration: 30 day, Stop date: 07/24/18 9:00:00 CSTNotes: (Same as: Senokot) NIFEdipine 30 30 mg, 1 tab, Inactive [place] mg oral tablet, Route: PO, Drug 2018 Medical extended form: ERTAB, Center release ONCE, Dosing Weight 45.085, kg, Start date: 06/24/18 20:14:00 DOUBLE NEEDLE STITCHER, Stop date: 06/24/18 20:14:00 CSTNotes: (Same as: Adalat CC, Procardia XL) Give on empty stomach. Take 1 hour before or 2 hours after meal; "Avoid grapefruit and grapefruit juice". Do not crush Docusate 100 mg, 10 mL, No Longer [facility] Route: GT, Drug Active 2018 Medical form: LIQ, BID, Center Dosing Weight 76.007, kg, Start date: 06/24/18 17:00:00 DOUBLE NEEDLE STITCHER, Duration: 30 day, Stop date: 07/24/18 9:00:00 CSTNotes: (Same as: Colace) heparin sodium, 5,000 unit, 1 No Longer [place] porcine 2500 mL, Route: Active 2018 Medical UNT/ML SUB-Q, Drug Center Injectable form: INJ, Q8H, Solution Dosing Weight 45.085, kg, Start date: 06/24/18 16:00:00 DOUBLE NEEDLE STITCHER, Duration: 30 day, Stop date: 07/24/18 8:00:00 CSTNotes: porcine heparin Cardene 40 mg 40 mg, 200 mL, No Longer [place] in NS 200 mL Rate: Titrate, Active 2017 Medical (Titrate.) IV Start Dose: 5 Center 40 mg mg/hr, Titration: 2.5 mg/hr every 15 minutes, Goal(s): SBP of 190, Max Dose: 15 mg/hr, Route: IV, Dosing Weight 45.085 kg, Total Volume: 200, Start date: 06/24/18 14:24:00 DOUBLE NEEDLE STITCHER, Duration: 30 day, Stop date:...Notes: Same as: Cardene Concentration: (0.2 mg /1 ml ) sevelamer 800 mg=1 tab, No Longer Porsche carbonate 800 PO, 0 Refill(s) Active 2017 Medical MG Oral Tablet [place] [Renvela] amLODIPine 10 10 mg=1 tab, Active [place] mg oral tablet PO, Daily, 0 2017 Medical Refill(s) [place] Clonidine 0.1 mg, 1 tab, Inactive [place] Hydrochloride Route: PO, Drug 2018 Medical 0.1 MG Oral form: TAB, Center Tablet ONCE, Dosing Weight 45.085, kg, Start date: 06/24/18 13:13:00 DOUBLE NEEDLE STITCHER, Stop date: 06/24/18 13:13:00 CSTNotes: (Same As: Catapres) Saline Flush 10 ml, Route: No Longer [place] 0.9% IVP, Drug Form: Active 2018 Medical INJ, Dosing Center Weight 76.007, kg, PRN, PRN Line Flush, Start date: 06/24/18 12:07:00 DOUBLE NEEDLE STITCHER, Duration: 30 day, Stop date: 07/24/18 12:06:00 CSTNotes: (Same as: BD Posiflush) Nystatin 100 1 appl, Route: No Longer [place] UNT/MG Topical TOP, PRN, Drug Active 2017 Medical Powder form: PWDR, PRN [facility], Start date: 06/24/18 12:07:00 DOUBLE NEEDLE STITCHER, Duration: 30 day, Stop date: 07/24/18 12:06:00 CSTNotes: (Same as:Mycostatin, Nilstat) For external use only. atorvastatin 10 mg, 1 tab, No Longer Route: PO, Drug Active 2016 [facility] form: TAB, City Bedtime, Dosing Weight 76.007, kg, Start date: 01/09/17 21:00:00 CDT, Duration: 30 day, Stop date: 02/07/17 21:00:00 CDTNotes: (Same As: Lipitor) aspirin 81 mg 81 mg=1 tab, Active tablet, enteric PO, Daily, # 30 2016 [facility] coated tab, 0 City Refill(s) atorvastatin 10 10 mg=1 tab, Active mg oral tablet PO, Bedtime, # 2016 [facility] 30 tab, 0 City Refill(s) heparin 5,000 unit, 1 No Longer mL, Route: Active 2016 [facility] SUB-Q, Drug [facility] form: INJ, Q8H, Start date: 01/09/17 16:00:00 CDT, Duration: 30 day, Stop date: 02/08/17 8:00:00 CDTNotes: porcine heparin gabapentin 100 300 mg, 1 cap, No Longer MG Oral Capsule Route: PO, Drug Active 2016 [facility] form: CAP, [facility] Bedtime, Dosing Weight 76.007, kg, Start date: 01/08/17 21:00:00 CDT, Duration: 30 day, Stop date: 02/06/17 21:00:00 CDTNotes: (Same as: Neurontin) Saline Flush 10 ml, Route: Inactive 0.9% IVP, Drug Form: 2016 [facility] INJ, Dosing [facility] Weight 76.007, kg, Q12H, Start date: 01/08/17 21:00:00 CDT, Duration: 30 day, Stop date: 02/07/17 9:00:00 CDT Hydroxyzine 50 mg, 2 tab, No Longer Route: PO, Drug Active 2016 [facility] form: TAB, TID, [facility] Dosing Weight 76.007, kg, Start date: 01/08/17 19:00:00 CDT, Duration: 30 day, Stop date: 02/07/17 17:00:00 CDTNotes: (Same as: Atarax) Avoid alcohol. ARIPiprazole 10 mg, 2 tab, No Longer Route: PO, Drug Active 2016 [facility] form: TAB, [facility] Daily, Dosing Weight 76.007, kg, Start date: 01/08/17 19:00:00 CDT, Duration: 30 day, Stop date: 02/07/17 9:00:00 CDTNotes: Non-Formulary Drug. (Same as: Abilify) Amlodipine 10 mg, 2 tab, No Longer Route: PO, Drug Active 2016 [facility] form: TAB, City Daily, Dosing Weight 76.007, kg, Start date: 01/08/17 18:26:00 CDT, Duration: 30 day, Stop date: 02/07/17 9:00:00 CDTNotes: (Same as: Norvasc) Sertraline 50 mg, 1 tab, No Longer Route: PO, Drug Active 2016 [facility] form: TAB, [facility] Daily, Dosing Weight 76.007, kg, Start date: 01/08/17 18:25:00 CDT, Duration: 30 day, Stop date: 02/07/17 9:00:00 CDTNotes: (Same as: Zoloft) Clonidine 0.2 mg, 2 tab, No Longer Hydrochloride Route: PO, Drug Active 2016 [facility] 0.2 MG Oral form: TAB, TID, [facility] Tablet Dosing Weight 76.007, kg, Start date: 01/08/17 18:24:00 CDT, Duration: 30 day, Stop date: 02/07/17 17:00:00 CDTNotes: (Same As: Catapres) 200 ACTUAT 2.49 mg, 3 mL, No Longer Albuterol 0.09 Route: NEB, Active 2017 [facility] MG/ACTUAT Drug Form: [facility] Metered Dose SOLN, Dosing Inhaler [ProAir Weight 76.007, HFA] kg, RQID, PRN Wheezing, Start date: 01/08/17 18:00:00 CDT, Duration: 30 day, Stop date: 02/07/17 17:59:00 CDTNotes: SEE RT DOCUMENTATION (Same as: Proventil) Hydralazine 10 mg, 0.5 mL, No Longer Route: IV, Drug Active 2016 [facility] form: INJ, Q4H, [facility] Dosing Weight 76.007, kg, PRN Elevated BP, Start date: 01/08/17 17:42:00 CDT, Duration: 30 day, Stop date: 02/07/17 17:41:00 CDTNotes: (Same as: Apresoline) Push over 5 minutes Clonidine 0.1 mg=0.5 tab, Active Hydrochloride PO, TID, 0 2016 [facility] 0.2 MG Oral Refill(s) [facility] Tablet ARIPiprazole 10 10 mg=1 tab, Active mg oral tablet PO, Daily, # 30 2016 [facility] tab, 0 [facility] Refill(s) Amlodipine 10 mg, PO, Active Daily, 0 2016 [facility] Refill(s) [facility] sertraline 50 50 mg=1 tab, Active mg oral tablet PO, Daily, 0 2016 [facility] Refill(s) [facility] gabapentin 100 300 mg=3 cap, Active MG Oral Capsule PO, Bedtime, 0 2016 [facility] Refill(s) [facility] Hydroxyzine 50 mg, PO, TID, Active 0 Refill(s) 2016 [facility] Enoxaparin 30 mg, 0.3 mL, No Longer Route: SUB-Q, Active 2016 [facility] Drug form: INJ, [facility] [id number], Dosing Weight 76.007, kg, Start date: 01/08/17 17:00:00 CDT, Stop date: 02/06/17 17:00:00 CDTNotes: (Same as: Lovenox) aspirin 81 mg 81 mg, 1 tab, No Longer tablet, enteric Route: PO, Drug Active 2016 [facility] coated form: ECTAB, [facility] Daily, Dosing Weight 76.007, kg, Start date: 01/08/17 16:49:00 CDT, Duration: 30 day, Stop date: 02/07/17 9:00:00 CDTNotes: Do not crush or chew. (Same As: Ecotrin) Famotidine 20 mg, 1 tab, No Longer Route: PO, Drug Active 2016 [facility] form: TAB, City Q12H, Dosing Weight 76.007, kg, Start date: 01/08/17 16:49:00 CDT, Duration: 30 day, Stop date: 02/07/17 9:00:00 CDTNotes: (Same as: Pepcid) Sodium Chloride 25 mL, Route: No Longer 0.9% IV IVP, Start Active 2016 [facility] date: 01/08/17 [facility] 16:48:00 CDT, Duration: 30 day, Stop date: 02/07/17 16:47:00 CDT, PRN Line Flush BD Normal 10 mL, Route: No Longer Saline Flush IVP, Drug Form: Active 2016 [facility] INJ, PRN, PRN [facility] Line Flush, Start date: 01/08/17 16:48:00 CDT, Duration: 30 day, Stop date: 02/07/17 16:47:00 CDTNotes: (Same as: BD Posiflush) BD Normal 5 mL, Route: No Longer Saline Flush IVP, Drug Form: Active 2016 [facility] INJ, PRN, PRN [facility] Line Flush, Start date: 01/08/17 16:47:00 CDT, Duration: 30 day, Stop date: 02/07/17 16:46:00 CDTNotes: (Same as: BD Posiflush) Saline Flush 10 ml, Route: Inactive 0.9% IVP, Drug Form: 2016 [facility] INJ, Dosing City Weight 76.007, kg, PRN, PRN Line Flush, Start date: 01/08/17 16:41:00 CDT, Duration: 30 day, Stop date: 02/07/17 16:40:00 CDT Allergies, Adverse Reactions, Alerts Substance Category Reaction Severity Reaction Status Date Comments Source type Reported No Known Assertion Drug [facility] Medication allergy Medical Allergies Center Immunizations Immunization Date Site Status Last Comments Source Given Updated pneumococcal Right completed Jimenez [facility] 13-valent vaccine 7 [facility] tetanus-diphtheri Right completed Katya [facility] a toxoids 9 [facility] Results Order Name Results Value Reference Date Interpretation Comments Source Range CHEM PANEL Magnesium 2.2 1.8 - 2.4 06/30 [facility] CHEM PANEL Phosphorus 4.6 2.5 - 4.5 06/[address] CHEM PANEL eGFR 8 06/30 Result [facility] Comment: The Medical eGFR is Center calculated using the CKD-EPI formula. In most young, healthy individuals the eGFR will be >90 mL/min/1.73m2 . The eGFR declines with age. An eGFR of 60-89 may be normal in some populations, particularly the elderly, for whom the CKD-EPI formula has not been extensively validated. Use of the eGFR is not recommended in the following populations:< br/>
Priscila viduals with unstable creatinine concentration s, including patients and those with serious co-morbid conditions.<b r/>
Patie nts with extremes in muscle mass or diet.

The data above are obtained from the National Kidney Disease Education Program (NKDEP) which additionally recommends that when the eGFR is used in patients with extremes of body mass index for purposes of drug dosing, the eGFR should be multiplied by the estimated BMI. CHEM PANEL ALT 15 0 - 65 06/[address] CHEM PANEL AST 14 0 - 37 06/[address] CHEM PANEL Globulin 3.8 2.7 - 4.2 06/[address] CHEM PANEL A/G Ratio 0.8 0.7 - 1.6 06/[address] CHEM PANEL Albumin Lvl 3.2 3.5 - 5.0 06/[address] CHEM PANEL Total 7.0 6.4 - 8.4 06/30 [facility] Protein [facility] CHEM PANEL B/C Ratio 8 6 - 25 06/[address] CHEM PANEL Bili Total 0.5 0.2 - 1.3 06/[address] CHEM PANEL Alk Phos 130 39 - 136 06/[address] CHEM PANEL Glucose Lvl 88 70 - 99 06/[address] CHEM PANEL BUN 48 7 - 22 06/[address] CHEM PANEL Calcium Lvl 8.0 8.5 - 10.5 06/[address] CHEM PANEL AGAP 13.5 10.0 - 06/30 [place] 20.0 [facility] CHEM PANEL Chloride Lvl 104 95 - 109 06/30 /2017 [facility] CHEM PANEL CO2 24 24 - 32 06/[address] CHEM PANEL Creatinine 5.89 0.50 - 06/30 [facility] Lvl 1.40 [facility] CHEM PANEL Sodium Lvl 137 135 - 145 06/[address] CHEM PANEL Potassium 4.5 3.5 - 5.1 06/30 [facility] Lvl /2017 [facility] HEMATOLOGY MCH 27.7 27.0 - 06/30 [place] 31.0 [facility] HEMATOLOGY Hct 28.3 36.0 - 06/30 [facility] 48.0 [facility] HEMATOLOGY MCV 85.6 80.0 - 06/30 [facility] 98.0 [facility] HEMATOLOGY MCHC 32.3 32.0 - 06/30 [facility] 36.0 /2017 [facility] HEMATOLOGY RDW 16.0 11.5 - 06/30 [facility] 14.5 [facility] HEMATOLOGY Platelet 141 133 - 450 06/[address] HEMATOLOGY MPV 8.5 7.4 - 10.4 06/30 [facility]2017 [facility] HEMATOLOGY WBC 4.4 3.7 - 10.4 06/30 /2017 [facility] HEMATOLOGY RBC 3.31 4.20 - 06/30 [place] 5.40 [facility] HEMATOLOGY Hgb 9.2 12.0 - 06/30 [place] 16.0 [facility] HEMATOLOGY Monocytes # 0.9 0.0 - 0.8 06/[address] HEMATOLOGY Anisocyte 1+ None Seen 06/30 [facility] *ABN* /2017 [facility] (06/30/18 5:16 AM) [place] HEMATOLOGY Eosinophils 0.1 0.0 - 0.5 06/30 [facility] # /2017 [facility] HEMATOLOGY Target Cell Slight 06/30 [facility] /[address] [place] [address] HEMATOLOGY Monocytes 20.2 2.0 - 12.0 06/[address] HEMATOLOGY Basophils 0.9 0.0 - 1.0 06/[address] HEMATOLOGY Lymphocytes 32.1 20.0 - 06/30 [place] 40.0 [facility] HEMATOLOGY Eosinophils 1.2 0.0 - 4.0 06/[address] HEMATOLOGY Neutrophils 2.0 1.5 - 8.1 06/30 [facility] HEMATOLOGY Lymphocytes 1.4 1.0 - 5.5 06/30 [facility] HEMATOLOGY Segs 45.6 45.0 - 06/30 [facility] 75.0 [facility] HEMATOLOGY Plt Morph Normal 06/30 [facility] (06/30/18 5:16 AM) 2017 [facility] ANEMIA Iron 61 30 - 160 06/29 [facility]2017 [facility] ANEMIA TIBC 223 228 - 428 06/29 [facility]2017 [facility] ANEMIA UIBC 162 110 - 370 06/29 [facility] /2017 [facility] ANEMIA % Satur Fe 27 12 - 57 06/29 [facility]2017 [facility] ANEMIA Ferritin Lvl 428 5 - 204 06/29 [facility]2017 [facility] CHEM PANEL Phosphorus 3.6 2.5 - 4.5 06/[address] CHEM PANEL Magnesium 2.2 1.8 - 2.4 06/29 [facility] CHEM PANEL Bili Total 0.5 0.2 - 1.3 06/[address] CHEM PANEL Alk Phos 140 39 - 136 06/[address] CHEM PANEL AST 13 0 - 37 06/[address] CHEM PANEL ALT 14 0 - 65 06/[address] CHEM PANEL eGFR 13 06/29 Result [facility] Comment: The Medical eGFR is Center calculated using the CKD-EPI formula. In most young, healthy individuals the eGFR will be >90 mL/min/1.73m2 . The eGFR declines with age. An eGFR of 60-89 may be normal in some populations, particularly the elderly, for whom the CKD-EPI formula has not been extensively validated. Use of the eGFR is not recommended in the following populations:< br/>
Priscila viduals with unstable creatinine concentration s, including patients and those with serious co-morbid conditions.<b r/>
Patie nts with extremes in muscle mass or diet.

The data above are obtained from the National Kidney Disease Education Program (NKDEP) which additionally recommends that when the eGFR is used in patients with extremes of body mass index for purposes of drug dosing, the eGFR should be multiplied by the estimated BMI. CHEM PANEL Albumin Lvl 3.0 3.5 - 5.0 06/29 [facility] /[address] [place] [address] CHEM PANEL Total 7.1 6.4 - 8.4 06/29 [facility] Protein [facility] CHEM PANEL Chloride Lvl 104 95 - 109 06/[address] CHEM PANEL Calcium Lvl 7.6 8.5 - 10.5 06/[address] CHEM PANEL CO2 25 24 - 32 06/[address] CHEM PANEL Potassium 4.2 3.5 - 5.1 06/29 [facility] /2017 [facility] CHEM PANEL Sodium Lvl 138 135 - 145 06/[address] CHEM PANEL Glucose Lvl 95 70 - 99 06/[address] CHEM PANEL BUN 30 7 - 22 06/[address] CHEM PANEL Creatinine 4.15 0.50 - 06/29 [place] Lvl 1.40 [facility] CHEM PANEL AGAP 13.2 10.0 - 06/29 [place] 20.0 [facility] CHEM PANEL A/G Ratio 0.7 0.7 - 1.6 06/[address] CHEM PANEL Globulin 4.1 2.7 - 4.2 06/[address] CHEM PANEL B/C Ratio 7 6 - 25 06/[address] HEMATOLOGY MPV 8.2 7.4 - 10.4 06/29 [facility]2017 [facility] HEMATOLOGY RDW 16.5 11.5 - 06/29 [place] 14.5 [facility] HEMATOLOGY Platelet 131 133 - 450 06/[address] HEMATOLOGY MCV 85.3 80.0 - 06/29 [place] 98.0 [facility] HEMATOLOGY MCH 27.9 27.0 - 06/29 [place] 31.0 [facility] HEMATOLOGY MCHC 32.7 32.0 - 06/29 [place] 36.0 [facility] HEMATOLOGY RBC 3.40 4.20 - 06/29 [place] 5.40 [facility] HEMATOLOGY Hgb 9.5 12.0 - 06/29 [place] 16.0 /2018 [facility] HEMATOLOGY WBC 5.3 3.7 - 10.4 06/[address] HEMATOLOGY Hct 29.0 36.0 - 06/29 [place] 48.0 [facility] HEMATOLOGY Retic Auto 1.6 0.5 - 1.5 06/[address] [facility] HEMATOLOGY Monocytes 20.2 2.0 - 12.0 06/[address] HEMATOLOGY Segs 50.7 45.0 - 06/29 [facility] 75.0 [facility] HEMATOLOGY Lymphocytes 27.3 20.0 - 06/29 [facility] 40.0 [facility] HEMATOLOGY Monocytes # 1.1 0.0 - 0.8 06/[address] HEMATOLOGY Eosinophils 0.1 0.0 - 0.5 06/29 [facility]2017 [facility] HEMATOLOGY Basophils 0.7 0.0 - 1.0 06/[address] HEMATOLOGY Neutrophils 2.7 1.5 - 8.1 06/29 [facility]2017 [facility] HEMATOLOGY Eosinophils 1.1 0.0 - 4.0 06/[address] HEMATOLOGY Lymphocytes 1.5 1.0 - 5.5 06/[address] CHEM PANEL Magnesium 2.2 1.8 - 2.4 06/28 [facility] l [facility] CHEM PANEL Phosphorus 4.1 2.5 - 4.5 06/[address] CHEM PANEL eGFR 6 06/28 [facility] Comment: The Medical eGFR is Center calculated using the CKD-EPI formula. In most young, healthy individuals the eGFR will be >90 mL/min/1.73m2 . The eGFR declines with age. An eGFR of 60-89 may be normal in some populations, particularly the elderly, for whom the CKD-EPI formula has not been extensively validated. Use of the eGFR is not recommended in the following populations:< br/>
Priscila viduals with unstable creatinine concentration s, including patients and those with serious co-morbid conditions.<b r/>
Patie nts with extremes in muscle mass or diet.

The data above are obtained from the National Kidney Disease Education Program (NKDEP) which additionally recommends that when the eGFR is used in patients with extremes of body mass index for purposes of drug dosing, the eGFR should be multiplied by the estimated BMI. CHEM PANEL CO2 25 24 - 32 06/[address] CHEM PANEL Glucose Lvl 94 70 - 99 06/[address] CHEM PANEL BUN 49 7 - 22 06/[address] CHEM PANEL Potassium 4.3 3.5 - 5.1 06/28 [place] Lvl /2017 [facility] CHEM PANEL Creatinine 7.38 0.50 - 06/28 [place] Lvl 1.40 [facility] CHEM PANEL Sodium Lvl 136 135 - 145 06/[address] CHEM PANEL Chloride Lvl 103 95 - 109 06/[address] CHEM PANEL Albumin Lvl 3.1 3.5 - 5.0 06/[address] CHEM PANEL Calcium Lvl 7.6 8.5 - 10.5 06/[address] CHEM PANEL Total 6.9 6.4 - 8.4 06/28 [facility] Protein [facility] CHEM PANEL AST 13 0 - 37 06/[address] CHEM PANEL Alk Phos 125 39 - 136 06/[address] CHEM PANEL ALT 11 0 - 65 06/[address] CHEM PANEL Bili Total 0.5 0.2 - 1.3 06/[address] CHEM PANEL Globulin 3.8 2.7 - 4.2 06/[address] CHEM PANEL B/C Ratio 7 6 - 25 06/[address] CHEM PANEL A/G Ratio 0.8 0.7 - 1.6 06/[address] CHEM PANEL AGAP 12.3 10.0 - 06/28 [place] 20.0 [facility] HEMATOLOGY MPV 8.5 7.4 - 10.4 06/[address] HEMATOLOGY Platelet 145 133 - 450 06/28 [facility]2017 [facility] HEMATOLOGY RDW 16.0 11.5 - 06/28 [place] 14.5 [facility] HEMATOLOGY MCHC 31.5 32.0 - 06/28 [place] 36.0 [facility] HEMATOLOGY MCH 26.9 27.0 - 06/28 [place] 31.0 [facility] HEMATOLOGY MCV 85.6 80.0 - 06/28 [place] 98.0 [facility] HEMATOLOGY Hct 29.4 36.0 - 06/28 [place] 48.0 [facility] HEMATOLOGY RBC 3.43 4.20 - 06/28 [place] 5.40 [facility] HEMATOLOGY WBC 5.1 3.7 - 10.4 06/[address] HEMATOLOGY Hgb 9.2 12.0 - 06/28 [place] 16.0 [facility] HEMATOLOGY Basophils # 0.1 0.0 - 0.2 06/28 [facility] /2017 [facility] HEMATOLOGY Eosinophils 0.1 0.0 - 0.5 06/28 [facility] # /2017 [facility] HEMATOLOGY Monocytes # 0.9 0.0 - 0.8 06/28 [facility] /2017 [facility] HEMATOLOGY Monocytes 17.7 2.0 - 12.0 06/28 [facility] /2017 [facility] HEMATOLOGY Segs 52.2 45.0 - 06/28 [place] 75.0 [facility] HEMATOLOGY Lymphocytes 27.8 20.0 - 06/28 [place] 40.0 [facility] HEMATOLOGY Lymphocytes 1.4 1.0 - 5.5 06/28 [facility] /2017 [facility] HEMATOLOGY Neutrophils 2.7 1.5 - 8.1 06/28 [facility] /2017 [facility] HEMATOLOGY Basophils 1.0 0.0 - 1.0 06/28 [facility] HEMATOLOGY Eosinophils 1.3 0.0 - 4.0 06/28 [facility] /[address] [place]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 agree with this note. Extracted from:Title: MICU History and Physical Author: Miguelito Valero MD Date: 06/24/18 58YOF with PMH ofESRD, COPD, CVA,HTN, Hepatitis C who presented as transfer from [facility] for emergent dialysis found to have Neuro: - Pt is AOx3, no neuro deficits CV: # Hypertension: Patient with SBP in the 220s on presentation. Unknown baseline BP. No neurological deficits. No CP. s/p Clonidine 0.1 mg at OSH - Cardene gtt with goal SBP of 190 - Plan to restart home BP medications Pulm: # Pulmonary Edema: Likely 2/2 volume overload - HD as below GI: - Renal Diet - Docusate-Senna : Renal/Electrolytes: # ESRD: Last dialysis 06/16. - Renal Consulted for HD, plan for dialysis today Heme: # Anemia: Likely 2/2 anemia of chronic disease -CTM Endo: - CTM BS Heparin SubQ Pending transfer to floor following dialysis. Attending: The patient was seen and discussed with the MICU team. I personally examined the patients and reviewed the lab and radiology data.I agree with the assessment and plan as outlined. Admitted with hyperten sive urgency , volume overload - missed severl days of dialysis General; awake responsive -without complaints Chest : _ Heart : _RRR Abdomen: _soft NT Extremities: _edema Neuro: _ intact Assessment _ESRD HTN Volume overload cocaine use noncompliance Plan: _HD Antihypertensives Extracted from:Title: Clinical Document 01/10/2017 [facility] Author: Stefano Magana MD Date: 01/10/17 Subjective: [...] at present. Stefano Magana M.D., [facility] Extracted from:Title: RENAL Author: Stefano Magana MD Date: 01/09/17 [...] TID. enoxaparin: 30 mg, 0.3 mL, SUB-Q, txpmH89O. famotidine: 20 mg, 1 tab, PO, Q12H. [...] 24hr Tot 0 0 0 CCL error: %NPU-T-742-SMT_EDOC_COMMON(0,0)[id number] on array out of bound at (size:1,occur:10). CCL error: %AIJ-J-633-SMT_EDOC_COMMON(0,0)[id number]:1146Overflow on array out of bound at (size:1,occur:5). CCL error: %FAR-J-818-SMT_EDOC_COMMON(0,0)[id number]:1146Overflow on array out of bound at (size:1,occur:5). CCL error: %BYW-K-428-SMT_EDOC_COMMON(0,0)[id number]:1146Overflow on array out of bound at (size:1,occur:7). CCL error: %DTN-P-602-SMT_EDOC_COMMON(0,0)[id number]:1146Overflow on array out of bound at (size:1,occur:2). [...] d/w Dr. Wood Magana M.D., [facility] Extracted from:Title: History and Physical Author: Brendan Terry MD Date: 01/08/17 Assessment/Plan 1. Numbess of hand CT was done, apparently WNL. MRI brain has been order. Per neurology 2. Hypertension On Clonidine and Amlodipine. Cont home meds 3. DM2: SSI Prophylaxis Ambulation/Hydration Disposition Obs, expected LOS=1 midnight Plan of Care No Data Provided for This Section Social History Social History Date Source Social History TypeResponse 08/05/2013 [facility] Sexual Sexually active: No. Alcohol Past, Type Beer. Frequency: 1-2 times per month. Previous treatment: None. Alcohol use interferes with work or home: No. Drinks more than intended: No. Others hurt by drinking: No. Ready to change: Yes. Household alcohol concerns : No. Smoking Status Current every day smoker; Type: Cigarettes; Number of years: 42; Started at age : 14.0; Previous treatment: Counseling; Ready to change: No; Concerns about tobacco use in household: Yes; Lives with someo ne who smokes; Cigarette Smoking Last 365 Days Yes; Reg Smoking Cessation Counseling No Social History TypeResponse 08/05/2013 [facility] Sexual Sexually active: No. Alcohol Past, Type Beer. Frequency: 1-2 times per month. Previous treatment: None. Alcohol use interferes with work or home: No. Drinks more than intended: No. Others hurt by drinking: No. Ready to change: Yes. Household alcohol concerns : No. Smoking Status Current every day smoker; Type: Cigarettes; Previous treatment: Counseling; Ready to change: No; Concerns about tobacco use in household: Yes; Lives with someone who smokes; Cigarette Smoking Last 365 D ays Yes; Reg Smoking Cessation Counseling No; Number of years: 42; Started at age: 14.0; entered on: 06/24/18 Family History No Data Provided for This Section Advance Directives No Data Provided for This Section Functional Status No Data Provided for This Section
--- OUTSIDE RECORDS SUMMARY | 2019-01-19 13:20 | XMS REPORT ---
:1960 Author Organization [employer] Care Team Providers Name Role Phone Patrick Jovel Provider Role Unavailable Allergies No Known Allergies Problems Problem Type Condition Code Onset Dates Condition Status Problem Dependence on renal dialysis Z99.2 Active Problem Tobacco use disorder F17.200 Active Problem Vascular dementia without F01.50 Active behavioral disturbance Problem Coronary artery disease involving I25.10 Active [place] coronary artery of [place] heart, angina presence unspecified Problem Chronic obstructive pulmonary J44.9 Active disease, unspecified COPD type Problem History of CVA with residual I69.30 Active deficit Problem Insomnia, unspecified type G47.00 Active Problem HTN, goal below 130/80 I10 Active Problem Vascular dementia with behavior F01.51 Active disturbance Problem Depression with anxiety F41.8 Active Problem End stage renal disease N18.6 Active Problem History of pulmonary embolism Z86.711 Active Problem History of CVA (cerebrovascular Z86.73 Active accident) Medications No Known Medications Results No Known Results Summary Purpose [employer]
--- OUTSIDE RECORDS SUMMARY | 2019-01-19 13:20 | XMS REPORT | Summary of Care ---
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 with her daughter for 24h supervision before moving in with [facility] brother and [id number]. PCP was contacted and given our findings. [...] With Zachery Fuentes, Call for appointment, PH: [phone], within: 2 Weeks, reason: Primary Care Physician follow up post hospitalization Daniel Murray MD/PhD Family Medicine PGY1 MSO# [id number] Extracted from: Title: OR Nephrology progress note Author: Angela Howard DO Date: NEPHROLOGY PROGRESS NOTE Attending: Adrian Simental MD Service: Family Practice Service Code status: Full Code Reason for Admission: KIDNEY FAILURE Working DRG: Isolation: No Isolation/Standard Precautions Consulting Physicians: Neeta Lozano MD Office: Service: General Medicine, Nephrology Angela Howard DO Office: (not on file) Service: [...] participate in the care of Ms. To. Angelacarla Howard, PGY5 P: [phone] C: [phone] Addendum by Rosamaria Palumbo MD on 06/30/2018 14:54 OR NEPHROLOGY STAFF ATTESTATION I saw this medically complex patient on 06/30/18 while on hemodialysis. I have reviewed the labs and radiographic data, discussed the plans with the fellow, and agree with this note. Indication - azotemia, mineral bone disorder, volume control, esrd Access - LUE AVF Flows - QB 400 mL/min, QD 800 mL/min VS - BP 147/74, P 57 Tolerating procedure. Extracted from: Title: OR Nephrology Consult Note Author: Neeta Lozano MD Date: 58 yr old woman with PMH of HTN, hepatitis C, HFpEF, previous cocaine abuse, bipolar disorder, COPD, CAD/ [place] 2012, Stroke in 2013, ESRD secondary to HTN started on HD 2 years ago. Patient usually has a TThS schedule and get transported to her HD center (in [facility]) with a car service last HD about 2 weeks ago per patient, her transport service stopped coming and she never followed up afterwards presented to [facility] with 3 days of shortness of breath and swollen breasts and arms, found to have hypertensive urgency, hyperkalemia and pulmonary edema 1-ESRD: Secondary toHTN Duration 2 years HD center [facility] dialysis in [place] [employer] unknown to patient HD schedule TThS Last HD 2 weeks ago Dry weight unknown to patient Access left upper extremity AVF HD order for today- 2 hrs, 400/800, UF 1-3 kg as rommel will reassess tomorrow for further HDneeds 2-Volume status: pulmonary edema Hypervolemia Will control with iHD 3-Electrolytes: hyperkalemia Na, Ca, Mg unremarkable per OSH labs labs in [facility] pending Will control with iHD Renal diet [...] by Rosamaria Palumbo MD on 06/25/2018 21:43 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 I have reviewed the labs and radiographic data, discussed the plans with the fellow and renal team, and agree with this note. Extracted from: Title: MICU History and Physical Author: Miguelito Valero MD Date: 58YOF with PMH ofESRD, COPD, CVA,HTN, Hepatitis C who presented as transfer from [facility] for emergent dialysis found to have Neuro: [...] assessment and plan as outlined. Admitted with hype rtensive urgency , volume overload - missed severl days of dialysis General; awake responsive -without complaints Chest : _ Heart : _RRR Abdomen: _soft NT Extremities: _edema Neuro: _ intact Assessment _ESRD HTN Volume overload cocaine use noncompliance Plan: _HD Antihypertensives
--- OUTSIDE RECORDS SUMMARY | 2019-01-19 13:20 | XMS REPORT ---
:1960 Author Organization eClinicalWorks Care Team Providers Name Role Phone MedPatrick Provider Role Unavailable Allergies, Adverse Reactions, Alerts Substance Reaction Event Type N.K.D.A. Info Not Available Non Drug Allergy Problems Problem Type Condition Code Onset Dates Condition Status Problem Dependence on renal dialysis Z99.2 Active Problem Tobacco use disorder F17.200 Active Problem Vascular dementia without F01.50 Active behavioral disturbance Problem Insomnia, unspecified type G47.00 Active Assessment History of CVA with residual I69.30 Active deficit Problem HTN, goal below 130/80 I10 Active Assessment Chronic obstructive pulmonary J44.9 Active disease, unspecified COPD type Assessment Tobacco use disorder F17.200 Active Problem Vascular dementia with behavior F01.51 Active disturbance Problem Depression with anxiety F41.8 Active Problem End stage renal disease N18.6 Active Problem History of pulmonary embolism Z86.711 Active Problem History of CVA (cerebrovascular Z86.73 Active accident) Assessment Dependence on renal dialysis Z99.2 Active Assessment End stage renal disease N18.6 Active Assessment Insomnia, unspecified type G47.00 Active Assessment Depression with anxiety F41.8 Active Problem Coronary artery disease involving I25.10 Active [place] coronary artery of [place] heart, angina presence unspecified Assessment Coronary artery disease involving I25.10 Active [place] coronary artery of [place] heart, angina presence unspecified Assessment Vascular dementia with behavior F01.51 Active disturbance Problem Chronic obstructive pulmonary J44.9 Active disease, unspecified COPD type Assessment History of pulmonary embolism Z86.711 Active Assessment HTN, goal below 130/80 I10 Active Problem History of CVA with residual I69.30 Active deficit Medications Medication Code Code Instructions Start End Status Dosage System Date Date Trazodone HCl ND 53520639685 50 MG Orally Active 1 tablet at Once a day bedtime as needed Ventolin HFA [facility] 45685397576 108 (90 Base) Jul 18, Active 2 puffs as MCG/ACT 2019 needed Inhalation every 6 hrs Ramipril ND 50789357272 5 MG Orally Active 1 capsule Once a day Clonidine HCl [facility] 26070524907 0.2 MG Orally Active 1 tablet Twice a day Renvela [facility] 24662817934 800 MG Orally Active 1 tablet Three times a with meals day Breo Ellipta [facility] 70224279585 200-25 MCG/INH OctoberFeb 05, Active 1 puff Inhalation Once 2018 2019 a day Carvedilol [facility] 02183009704 12.5 MG Orally Active as directed BID Isosorbide [facility] 53380844811 30 MG Orally Active 1 tablet in Mononitrate Once a day the morning Results No Known Results Summary Purpose eClinicalWorks Submission
--- OUTSIDE RECORDS SUMMARY | 2019-01-19 13:20 | XMS REPORT ---
:1960 Author Organization eClinicalWorks Care Team Providers Name Role Phone JovelPatrick Provider Role Unavailable Allergies, Adverse Reactions, Alerts Substance Reaction Event Type N.K.D.A. Info Not Available Non Drug Allergy Problems Problem Type Condition Code Onset Dates Condition Status Problem Coronary artery disease involving I25.10 Active [place] coronary artery of [place] heart, angina presence unspecified Problem History of [...] Assessment Coronary artery disease involving I25.10 Active [place] coronary artery of [place] heart, angina presence unspecified Assessment End stage renal disease N18.6 Active Problem Insomnia, unspecified type G47.00 Active Medications Medication Code Code Instructions Start End Status Dosage System Date Date Carvedilol [facility] 25421011620 12.5 MG Orally Active as directed BID Clonidine HCl [facility] 85443456577 0.2 MG Orally Active 1 tablet Twice a day Isosorbide [facility] 02655307329 30 MG Orally Active 1 tablet in Mononitrate Once a day the morning Renvela [facility] 57293188548 800 MG Orally Apr 07, Active 1 tablet Three times a 2019 with meals day Ramipril [facility] 93882327810 5 MG Orally Active 1 capsule Once a day Trazodone HCl [facility] 72892115590 50 MG Orally Active 1 tablet at Once a day bedtime as needed Results No Known Results Summary Purpose eClinicalWorks Submission
--- OUTSIDE RECORDS SUMMARY | 2019-01-19 13:20 | XMS REPORT ---
:1960 Author Organization eClinicalWorks Care Team Providers Name Role Phone Patrick Jovel Provider Role Unavailable Allergies, Adverse Reactions, Alerts Substance Reaction Event Type N.K.D.A. Info Not Available Non Drug Allergy Problems Problem Type Condition Code Onset Dates Condition Status Problem Coronary artery disease involving I25.10 Active [place] coronary artery of [place] heart, angina presence unspecified Problem History of [...] End Date Status Dosage System Date Benzonatate [facility] [place] 63375916401 200 MG Orally Aug 24August Active 1 capsule Three times a 2019 2018 day Renvela ND 97287388883 800 MG Orally Apr 07, Active 1 tablet Three times a 2018 with meals day Ventolin HFA ND 06927831923 108 (90 Base) Jul 18, Active 2 puffs as MCG/ACT 2019 needed Inhalation every 6 hrs Clonidine HCl ND 32376432834 0.2 MG Orally Active 1 tablet Twice a day Ramipril ND 14173050879 5 MG Orally Active 1 capsule Once a day Carvedilol ND 38335676700 12.5 MG Orally Active as directed BID Trazodone HCl ND 19205409605 50 MG Orally Active 1 tablet at Once a day bedtime as needed Isosorbide ND 22347212317 30 MG Orally Active 1 tablet in Mononitrate Once a day the morning Azithromycin ND 89339644688 250 MG Orally Aug 24, Aug 29, Active 2 tablets Once a day 2018 2018 on the first day, then 1 tablet daily for 4 days Results Name Result Date Reference Range Unit Abnormality Flag STREP A RAPID ----Result NEGATIVE [id number] Summary Purpose eClinicalWorks Submission
--- OUTSIDE RECORDS SUMMARY | 2019-01-19 13:20 | XMS REPORT ---
:1960 Author Organization eClinicalWorks Care Team Providers Name Role Phone Med Patrick Provider Role Unavailable Allergies No Known Allergies Problems Problem Type Condition Code Onset Dates Condition Status Problem Coronary artery disease involving I25.10 Active [place] coronary artery of [place] heart, angina presence unspecified Problem History of [...] Date Status Dosage System Date Ventolin HFA [facility] 14202878164 108 (90 Base) Jul 18, Active 2 puffs as MCG/ACT 2019 needed Inhalation every 6 hrs Results No Known Results Summary Purpose eClinicalWorks Submission
[2019-01-19 13:58] LABS: Absolute Lymphocytes (CBC) 1.5 K/uL (0.7-4.9); Basophils % 0.9 % (0-1.3); Eosinophils % 2.8 % (0-4.4); Hematocrit 37.2 % (36.0-45.0); Lymphocytes % 23.2 % (15.3-44.8); MPV 8.9 fL (7.6-11.3); Monocytes % 11.9 % (3.3-12.3); Protime INR 0.93; RBC Red Blood Cell Count 4.31 M/uL (3.86-4.86)
[2019-01-19 14:14] LABS: Urine Blood NEGATIVE (NEG); Urine Glucose NEGATIVE (NEG); Urine Protein 2+ (NEG); Urine Specific Gravity 1.015 (1.005-1.030); Urine pH 8.5 (5.0-7.0)
[2019-01-19 14:29] LABS: Albumin 3.7 g/dL (3.4-5.0); Bilirubin Direct 0.2 mg/dL (0-0.2); Bilirubin Total 0.6 mg/dL (0.2-1.0); Magnesium 2.5 mg/dL (1.8-2.4); Potassium 4.8 mmol/L (3.5-5.1); Protein, Total 8.3 g/dL (6.4-8.2); Troponin (Emerg Dept Use Only) 0.02 ng/mL (0.0-0.045)
[2019-01-19 14:30] LABS: Barbiturates NEGATIVE (NEGATIVE); Benzodiazepines NEGATIVE (NEGATIVE); Cocaine POSITIVE (NEGATIVE); METHAMPHETAM NEGATIVE (NEGATIVE); Methadone NEGATIVE (NEGATIVE); Opiates NEGATIVE (NEGATIVE); Phencyclidine NEGATIVE (NEGATIVE); THC Cannibis NEGATIVE (NEGATIVE)
[2019-01-19] MEDS ORDERED: ALBUTEROL 2.5 MG/3 ML NEB SOL ONE (14:34)
[2019-01-19] MEDS ORDERED: IPRATROPIUM BROM 0.5MG/2.5ML ONE (14:35)
[2019-01-19] MEDS ORDERED: predniSONE 20 MG TAB ONE (14:35)
--- NOTE | 2019-01-19 14:45 | RAD REPORT ---
EXAM DESCRIPTION: [facility] Single View01/19/2019 2:15 pm CLINICAL HISTORY: Shortness of breath COMPARISON: May 2018 FINDINGS: Mild bilateral interstitial lung opacities The heart is mildly to moderately enlarged. Postsurgical changes involve the chest. IMPRESSION: Mild CHF
--- NOTE | 2019-01-19 15:43 | ER ---
Nurse's Notes [facility] Name: Michelle Ochoa Age: 58 yrs Sex: Female : 1960 Arrival Date: 01/19/2019 Time: 13:19 Bed 25 Private MD: Diagnosis: Dyspnea;Unspecified chronic bronchitis Presentation: 01/19 13:20 Presenting complaint: EMS states: patient experienced shortness of breath and aj1 hypertension while on dialysis today. blood pressure was 170/100. denies chest pain. she only did 2 hours of dialysis today supposedly 3 hours. Transition of care: patient was not received from another setting of care. Onset of symptoms was January 19, 2019. Risk Assessment: Do you want to hurt yourself or someone else? Patient reports no desire to harm self or others. Initial Sepsis Screen: Does the patient meet any 2 criteria? No. Patient's initial sepsis screen is negative. Does the patient have a suspected source of infection? No. Patient's initial sepsis screen is negative. Care prior to arrival: None. 13:20 Method Of Arrival: EMS: [place] [id number] 13:20 Acuity: ZAID 3 aj1 Historical: - Allergies: 13:25 No Known Allergies; aj1 - PMHx: 13:25 Anemia; CVA; Dialysis- T/Th/Sat; ENDOCARDITIS; Hypertension; kidney failure; PATRICK; Renal aj1 Disease; - PSHx: 13:25 Cholecystectomy; ; aj1 - Immunization history:: Flu vaccine is up to date. - Social history:: Smoking status: Patient uses tobacco products, smokes one-half pack cigarettes per day, Patient/guardian denies using alcohol, street drugs, IV drugs. - Ebola Screening: : No symptoms or risks identified at this time. Screenin:33 Abuse screen: Denies threats or abuse. Denies injuries from another. Nutritional mg2 screening: No deficits noted. Tuberculosis screening: No symptoms or risk factors identified. Fall Risk IV access (20 points). Assessment: 14:31 General: Appears in no apparent distress. comfortable, Behavior is calm, cooperative. mg2 Pain: Denies pain. Neuro: Level of Consciousness is awake, alert, obeys commands, Oriented to person, place, time, situation. Cardiovascular: Capillary refill < 3 seconds Patient's skin is warm and dry. Respiratory: Reports shortness of breath at rest Breath sounds with wheezes bilaterally. in mediastinum, right upper lobe and left upper lobe. GI: No signs and/or symptoms were reported involving the gastrointestinal system. : No signs and/or symptoms were reported regarding the genitourinary system. EENT: No signs and/or symptoms were reported regarding the EENT system. Derm: Skin is intact, is healthy with good turgor, Skin is pink, warm \T\ dry. normal. Musculoskeletal: Circulation, motion, and sensation intact. Capillary refill < 3 seconds. 16:12 Reassessment: patient up for discharge but daughter wants to talk to dr cuello first. mg2 Patient states feeling better. 17:38 Reassessment: Calixto from [facility] came and spoke to the sister thru phone. mg2 patient discharge in good condition. Vital Signs: 13:23 BP 151 / 66; Pulse 51; Resp 21; Pulse Ox 100% on R/A; Weight 58.97 kg; Height 5 ft. 0 aj1 in. (152.40 cm); Pain 0/10; 14:34 BP 127 / 63; Pulse 52; Resp 18; Pulse Ox 100% on 2 lpm NC; mg2 15:06 Temp 98(O); mg2 13:23 Body Mass Index 25.39 (58.97 kg, 152.40 cm) aj1 ED Course: 13:19 Patient arrived in ED. aj1 13:23 Triage completed. aj1 13:27 Scott Terrazas MD is Attending Physician. 13:27 Margot Warner, RN is Primary Nurse. aj1 14:17 XRAY Chest (1 view) In Process Unspecified. EDMS 14:32 Notified ED physician of a critical lab result(s). CREAT 5.93. hb 14:33 No provider procedures requiring assistance completed. Inserted saline lock: 22 gauge mg2 in right forearm, using aseptic technique. Blood collected. 14:34 Patient has correct armband on for positive identification. classroom monitor on. Pulse mg2 ox on. NIBP on. 14:34 Arm band placed on. mg2 16:37 faxed clinical' to [facility]. ms 17:37 IV discontinued, intact, bleeding controlled, No redness/swelling at site. Pressure mg2 dressing applied. Administered Medications: 14:26 Drug: AtroVENT Aerosol 0.5 mg Route: Inhalation; mg2 15:05 Follow up: Response: No adverse reaction; Marked relief of symptoms mg2 14:26 Drug: Albuterol 2.5 mg Route: Inhalation; mg2 15:05 Follow up: Response: No adverse reaction; Marked relief of symptoms mg2 14:26 Drug: predniSONE 40 mg Route: PO; mg2 15:04 Follow up: Response: No adverse reaction mg2 Outcome: 15:43 Discharge ordered by . 17:38 Discharged to home via wheelchair. mg2 17:38 Condition: stable 17:38 Discharge instructions given to patient, family, Instructed on discharge instructions, follow up and referral plans. Demonstrated understanding of instructions, follow-up care. 17:39 Patient left the ED. mg2 Signatures: Dispatcher MedHost EDMS Margot Warner RN RN aj1 Fide Garcia ms Jerri Crespo RN RN Scott Terrazas MD MD gs Gardose, Michele, RN RN mg2 Corrections: (The following items were deleted from the chart) 13:26 13:20 Presenting complaint: EMS states: patient experienced shortness of breath and aj1 hypertension while on dialysis today. blood pressure was 170/100. denies chest pain. aj1
--- NOTE | 2019-01-19 15:44 | EDPHYS ---
Physician Documentation [facility] Name: Michelle Ochoa Age: 58 yrs Sex: Female : 1960 Arrival Date: 01/19/2019 Time: 13:19 Bed 25 Private MD: ED Physician Scott Terrazas HPI: 01/19 16:11 This 58 yrs old Black Female presents to ER via EMS with complaints of Shortness Of gs Breath. 16:11 The patient has shortness of breath at rest. Onset: The symptoms/episode began/occurred gs last night. Duration: The symptoms are intermittent. The patient's shortness of breath is aggravated by SMOKING. Associated signs and symptoms: Pertinent negatives: chest pain, diaphoresis, fever. Severity of symptoms: At their worst the symptoms were moderate in the emergency department the symptoms are unchanged. The patient has experienced similar episodes in the past, a few times. Historical: - Allergies: 13:25 No Known Allergies; aj1 - PMHx: 13:25 Anemia; CVA; Dialysis- T//Mon; ENDOCARDITIS; Hypertension; kidney failure; PATRICK; Renal aj1 Disease; - PSHx: 13:25 Cholecystectomy; ; aj1 - Immunization history:: Flu vaccine is up to date. - Social history:: Smoking status: Patient uses tobacco products, smokes one-half pack cigarettes per day, Patient/guardian denies using alcohol, street drugs, IV drugs. - Ebola Screening: : No symptoms or risks identified at this time. ROS: 16:11 All other systems are negative. gs Exam: 16:11 Head/Face: Normocephalic, atraumatic. Eyes: Pupils equal round and reactive to light, gs extra-ocular motions intact. Lids and lashes normal. Conjunctiva and sclera are non-icteric and not injected. Cornea within normal limits. Periorbital areas with no swelling, redness, or edema. ENT: Nares patent. No nasal discharge, no septal abnormalities noted. Tympanic membranes are normal and external auditory canals are clear. Oropharynx with no redness, swelling, or masses, exudates, or evidence of obstruction, uvula midline. Mucous membranes moist. Neck: Trachea midline, no thyromegaly or masses palpated, and no cervical lymphadenopathy. Supple, full range of motion without nuchal rigidity, or vertebral point tenderness. No Meningismus. Chest/axilla: Normal chest wall appearance and motion. Nontender with no deformity. No lesions are appreciated. Cardiovascular: Regular rate and rhythm with a normal S1 and S2. No gallops, murmurs, or rubs. Normal PMI, no JVD. No pulse deficits. Respiratory: Lungs have equal breath sounds bilaterally, clear to auscultation and percussion. No rales, rhonchi or wheezes noted. No increased work of breathing, no retractions or nasal flaring. Abdomen/GI: Soft, non-tender, with normal bowel sounds. No distension or tympany. No guarding or rebound. No evidence of tenderness throughout. Back: No spinal tenderness. No costovertebral tenderness. Full range of motion. Skin: Warm, dry with normal turgor. Normal color with no rashes, no lesions, and no evidence of cellulitis. MS/ Extremity: Pulses equal, no cyanosis. Neurovascular intact. Full, normal range of motion. Neuro: Awake and alert, GCS 15, oriented to person, place, time, and situation. Cranial nerves II-XII grossly intact. Motor strength 5/5 in all extremities. Sensory grossly intact. Cerebellar exam normal. Normal gait. 16:11 Constitutional: The patient appears alert, awake. Vital Signs: 13:23 BP 151 / 66; Pulse 51; Resp 21; Pulse Ox 100% on R/A; Weight 58.97 kg; Height 5 ft. 0 aj1 in. (152.40 cm); Pain 0/10; 14:34 BP 127 / 63; Pulse 52; Resp 18; Pulse Ox 100% on 2 lpm NC; mg2 15:06 Temp 98(O); mg2 13:23 Body Mass Index 25.39 (58.97 kg, 152.40 cm) aj1 MDM: 14:07 Patient medically screened. gs 16:11 Differential diagnosis: CHF exacerbation, Chronic Obstructive Pulmonary Disease gs Myocardial Infarction. Data reviewed: vital signs, nurses notes, lab test result(s), EKG, radiologic studies. Counseling: I had a detailed discussion with the patient and/or guardian regarding: the historical points, exam findings, and any diagnostic results supporting the discharge/admit diagnosis, the need for outpatient follow up, pcp. 01/19 13:28 Order name: Basic Metabolic Panel; Complete Time: 15:16 mg2 01/19 13:28 Order name: CBC with Diff; Complete Time: 15:16 mg2 01/19 13:28 Order name: LFT's; Complete Time: 15:16 mg2 01/19 13:28 Order name: Magnesium; Complete Time: 15:16 mg2 01/19 13:28 Order name: NT PRO-BNP; Complete Time: 15:16 mg2 01/19 13:28 Order name: PT-INR; Complete Time: 15:16 mg2 01/19 13:28 Order name: Troponin (emerg Dept Use Only); Complete Time: 15:16 mg2 01/19 13:28 Order name: XRAY Chest (1 view); Complete Time: 15:16 mg2 01/19 13:28 Order name: EKG; Complete Time: 13:30 mg2 01/19 13:47 Order name: UDS; Complete Time: 15:16 mg2 01/19 14:10 Order name: Urine Dipstick--Ancillary (enter results); Complete Time: 15:16 ms 01/19 13:28 Order name: Cardiac monitoring; Complete Time: 14:07 mg2 01/19 13:28 Order name: EKG - Nurse/Tech; Complete Time: 14:07 mg2 01/19 13:28 Order name: IV Saline Lock; Complete Time: 14:07 mg2 01/19 13:28 Order name: Labs collected and sent; Complete Time: 14:07 mg2 01/19 13:28 Order name: O2 Per Protocol; Complete Time: 14:08 mg2 01/19 13:28 Order name: O2 Sat Monitoring; Complete Time: 14:08 mg2 Administered Medications: 14:26 Drug: AtroVENT Aerosol 0.5 mg Route: Inhalation; mg2 15:05 Follow up: Response: No adverse reaction; Marked relief of symptoms mg2 14:26 Drug: Albuterol 2.5 mg Route: Inhalation; mg2 15:05 Follow up: Response: No adverse reaction; Marked relief of symptoms mg2 14:26 Drug: predniSONE 40 mg Route: PO; mg2 15:04 Follow up: Response: No adverse reaction mg2 Disposition: 01/19/19 15:43 Discharged to Home. Impression: Dyspnea, Unspecified chronic bronchitis. - Condition is Stable. - Discharge Instructions: Shortness of Breath, [id number]. - Medication Reconciliation Form, Thank You Letter, Antibiotic Education, Prescription Opioid Use form. - Follow up: Private Physician; When: 1 - 2 days; Reason: Re-evaluation by your physician. Signatures: Dispatcher [employer]Host Margot Agustin RN RN aj1 Scott Terrazas MD MD gs Yong Villanueva RN RN mg2 Corrections: (The following items were deleted from the chart) 17:39 15:43 01/19/2019 15:43 Discharged to Home. Impression: Dyspnea; Unspecified chronic mg2 bronchitis. Condition is Stable. Forms are Medication Reconciliation Form, Thank You Letter, Antibiotic Education, Prescription Opioid Use. Follow up: Private Physician; When: 1 - 2 days; Reason: Re-evaluation by your physician. gs
[2019-01-19 18:30] VITALS: O2SAT 100
[2019-01-19 18:33] VITALS: BP 127/63
[2019-01-19 18:34] VITALS: TEMP 98
--- NOTE | 2019-01-21 10:23 | EKG ---
Test Date: 2019-01-19 Test Time: 13:58:28 Peer Counselor: MEASUREMENT RESULTS: Intervals: Rate: 51 VA: 150 QRSD: 78 QT: 536 QTc: 494 [place]: P: 100 VA: 150 QRS: -7 T: 159 INTERPRETIVE STATEMENTS: Sinus bradycardia Possible Anterior infarct, age undetermined T wave abnormality, consider lateral ischemia Abnormal ECG Compared to ECG 09/30/2018 16:17:12 Sinus rhythm no longer present Myocardial infarct finding still present T-wave abnormality still present Possible ischemia still present Electronically Signed On 01-21-19 10:23:57 CDT by Prashanth Casanova
== END 2019-01-19 17:39 | disposition home or self-care (01) ==
LOC: ER 13:13
DX: J42 Unspecified chronic bronchitis (principal); I10 Essential (primary) hypertension; F17.210 Nicotine dependence, cigarettes, uncomplicated; I12.0 Hypertensive chronic kidney disease with stage 5 chronic kidney disease or end stage renal disease; N18.6 End stage renal disease; Z99.2 Dependence on renal dialysis
CPT/HCPCS: 36415; 71045; 80048; 80076; 80307; 81003; 83735; 83880; 84484; 85025; 85610; 93005; 99285; J7512

== ENCOUNTER 2019-02-22 14:16 | Emergency (ER) | payer OTHER ==
--- OUTSIDE RECORDS SUMMARY | 2019-02-22 14:19 | XMS REPORT | Clinical Summary ---
:1960 [address] [facility] Address [address] [place] [address] Care Team Providers Name Role Phone Jacob Calixto Burrows Unavailable Maria Luisa Louei MD Primary Care Provider Allergies No Known [...] INFLUENZA VACCINE 04/02/2018 Implants Implanted Type Area Miner Pick Device Shelf Model / Identifier Expiration Serial / Lot Date Eulalio Hemshld Dbl Jarrod 2.0x6.0in [id number] - [id number] Graft/Pat GETINGE 01/30/2019 [id number] / Implanted: Qty: 1 on 01/25/2016 by Sherif Bañuelos MD ch IND: KWADWOT:CV / [id number] Results Not on fileafter 02/21/2018 Insurance Payer Benefit Plan / Group Subscriber ID Type Phone Address [employer] [facility] [employer] xxxxxxxxx [facility] MEDICAID [place] xxxxxxxxx Medicaid Advance Directives For more information, please contact:[address] [phone] Code Status Date Activated Date Inactivated Comments Full Code 01/23/2016 1:38 PM 02/06/2016 8:06 PM This code status was determined by: Patient Full Code 01/18/2016 10:03 AM 01/18/2016 10:53 AM This code status was determined by: Patient Full Code 01/16/2016 3:39 AM 01/18/2016 10:03 AM This code status was determined by: Patient
--- OUTSIDE RECORDS SUMMARY | 2019-02-22 14:21 | XMS REPORT | Continuity of Care Document ---
:1960 Author Organization [employer] Care Team Providers Name Role Phone [employer] Unavailable Unavailable Problems Problem Status Onset Classification Date Comments Source Date Reported Hypertensive heart 07/12/19 01/17/2019 [facility] and chronic kidney 19 Medical disease with heart Center failure and with stage 5 chronic kidney disease, or end stage renal disease KIDNEY FAILURE Active 06/24/[address] ISCHEMIC STROKE Active 01/09/[address] NUMBNESS Active 01/09/[address] Methicillin Active 06/11/20 Problem 01/17/2019 06/11/09 Nares- MRSA by PCR [facility] resistant 09 Problem added by Discern Expert. [facility] Staphylococcus Center, aureus2, 3 [facility] Final: Cerebral 01/13/2017 infarction, [facility] End stage renal 01/17/2019 [facility] disease [facility] Chronic diastolic 01/17/2019 [facility] heart failure [facility] Center Acidosis 01/17/2019 [facility] Unspecified 01/17/2019 [facility] protein-calorie Medical malnutrition Center Cocaine use, 01/17/2019 [facility], Medical uncomplicated Center Patient's 01/17/2019 [facility] noncompliance with Medical other medical Center treatment and regimen Nicotine 01/17/2019 [facility] dependence, Medical cigarettes, Center uncomplicated Bipolar disorder, 01/17/2019 [facility] unspecified Medical Center Chronic 01/17/2019 [facility] obstructive Medical pulmonary disease, Center unspecified Chronic viral 01/17/2019 [facility] hepatitis C [facility] Center Hyperkalemia 01/17/2019 [facility] Hypertensive 01/17/2019 [facility] urgency [facility] Anemia in chronic 01/17/2019 [facility] kidney disease [facility] Center Patient's 01/17/2019 [facility] noncompliance with Medical renal dialysis Center Vascular dementia 01/17/2019 [facility] without behavioral Medical disturbance Center Dementia in other 01/17/2019 [facility] classified Center elsewhere without behavioral disturbance Hepatic failure, 01/17/2019 [facility] Medical without coma Center 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 Bipolar disorder Resolved Problem 01/17/2019 [facility] CKD (Confirmed) Resolved Problem 01/17/2019 [facility] COPD (Confirmed) Resolved Problem 01/17/2019 [facility] CVA (Confirmed) Resolved Problem 01/17/2019 [facility] Dialysis patient1 Resolved Problem 01/17/2019 started [facility] Medical [facility] Gallbladder Resolved Problem 01/17/2019 [facility] Heart attack Resolved Problem 01/17/2019 [facility] Hepatitis C Resolved Problem 01/17/2019 [facility] HTN (Confirmed) Resolved Problem 01/17/2019 [facility] Simple obesity Active Problem 01/17/2019 [facility] Smoker Resolved Problem 01/17/2019 [facility] CEREBRAL [facility] ILLNESS, Active UNSPECIFIED [facility] Medications Medication Details Route Status Patient Ordering Order Source Instructions Provider Date Docusate Sodium 50 mg=1 cap, Active 06/29/ [place] 50 MG Oral PO, BID, PRN 2018 Medical Capsule Constipation, [place] Take 1-2 tabs daily to maintain soft formed stools., # 180 cap, 0 Refill(s) POLYETHYLENE 17 gm=1 pkt, Active 06/29/ [place] GLYCOL 3350 GT, Daily, As 2018 Medical needed for Center constipation, 0 Refill(s) POLYETHYLENE 17 gm, 1 pkt, No Longer 06/25/ [place] GLYCOL 3350 Route: GT, Drug Active 2017 Medical form: PWDR, [place] Daily, Dosing Weight 76.007, kg, Start date: 06/25/18 9:00:00 AUTHORIZATION MANAGER, Duration: 30 day, Stop date: 07/24/18 9:00:00 CSTNotes: Dissolve in 8 oz of water or juice. (Same as: Miralax) Clonidine 0.1 mg, 1 tab, No Longer 06/25/ [place] Hydrochloride Route: PO, Drug Active 2017 Medical 0.1 MG Oral form: TAB, TID, Center Tablet Dosing Weight 45.085, kg, Start date: 06/25/18 9:00:00 AUTHORIZATION MANAGER, Duration: 30 day, Stop date: 07/24/18 17:00:00 CSTNotes: (Same As: Catapres) Amlodipine 10 mg, 1 tab, No Longer [facility] Route: PO, Drug Active 2017 Medical form: TAB, Center Daily, Dosing Weight 45.085, kg, Start date: 06/25/18 9:00:00 AUTHORIZATION MANAGER, Duration: 30 day, Stop date: 07/24/18 9:00:00 CSTNotes: (Same as: Norvasc) Insulin regular 3 unit, 0.03 Inactive [facility] mL, Route: 2018 Medical SUB-Q, Drug Center form: SOLN, TID-Before Meals, Dosing Weight 45.085, kg, PRN Blood Glucose Results, Start date: 06/25/18 6:22:00 AUTHORIZATION MANAGER, Duration: 30 day, Stop date: 07/25/18 6:21:00 CSTNotes: (Same as: Humulin R) Roll in palms of hands gently; Do not shake vigorously. "single patient use only" (Restricted to patients requiring a dose > 60 units) WASTE: F/P - Black; E - [employer] Trash Bin Stable for 28 days at room temperature Expires in days from D ate Glucagon 1 mg, Route: Inactive [facility] IM, Drug form: 2018 Medical PDR/INJ, PRN, Center Dosing Weight 45.085, kg, PRN Blood Glucose Results, Start date: 06/25/18 6:22:00 AUTHORIZATION MANAGER, Duration: 30 day, Stop date: 07/25/18 6:21:00 AUTHORIZATION MANAGER Dextrose 50% 12.5 gm, 25 mL, Inactive [facility] Syringe Route: IVP, 2018 Medical Drug Form: INJ, Center Dosing Weight 45.085, kg, PRN, PRN Blood Glucose Results, Start date: 06/25/18 6:22:00 AUTHORIZATION MANAGER, Duration: 30 day, Stop date: 07/25/18 6:21:00 AUTHORIZATION MANAGER NIFEdipine 30 30 mg, 1 tab, Inactive [facility] mg oral tablet, Route: PO, Drug 2018 Medical extended form: ERTAB, Center release ONCE, Dosing Weight 45.085, kg, Start date: 06/24/18 22:34:00 AUTHORIZATION MANAGER, Stop date: 06/24/18 22:34:00 CSTNotes: (Same as: Adalat CC, Procardia XL) Give on empty stomach. Take 1 hour before or 2 hours after meal; "Avoid grapefruit and grapefruit juice". Do not crush Saline Flush 10 ml, Route: No Longer [place] 0.9% IVP, Drug Form: Active 2018 Medical INJ, Dosing Center Weight 76.007, kg, Q12H, Start date: 06/24/18 21:00:00 AUTHORIZATION MANAGER, Duration: 30 day, Stop date: 07/24/18 9:00:00 CSTNotes: (Same as: BD Posiflush) sennosides, JAIL 8.6 mg, 1 tab, No Longer [place] Route: PO, Drug Active 2017 Medical Form: TAB, Center Dosing Weight 76.007, kg, Q12H, Start date: 06/24/18 21:00:00 AUTHORIZATION MANAGER, Duration: 30 day, Stop date: 07/24/18 9:00:00 CSTNotes: (Same as: Senokot) NIFEdipine 30 30 mg, 1 tab, Inactive [place] mg oral tablet, Route: PO, Drug 2018 Medical extended form: ERTAB, Center release ONCE, Dosing Weight 45.085, kg, Start date: 06/24/18 20:14:00 AUTHORIZATION MANAGER, Stop date: 06/24/18 20:14:00 CSTNotes: (Same as: Adalat CC, Procardia XL) Give on empty stomach. Take 1 hour before or 2 hours after meal; "Avoid grapefruit and grapefruit juice". Do not crush Docusate 100 mg, 10 mL, No Longer [facility] Route: GT, Drug Active 2018 Medical form: LIQ, BID, Center Dosing Weight 76.007, kg, Start date: 06/24/18 17:00:00 AUTHORIZATION MANAGER, Duration: 30 day, Stop date: 07/24/18 9:00:00 CSTNotes: (Same as: Colace) heparin sodium, 5,000 unit, 1 No Longer [place] porcine 2500 mL, Route: Active 2018 Medical UNT/ML SUB-Q, Drug Center Injectable form: INJ, Q8H, Solution Dosing Weight 45.085, kg, Start date: 06/24/18 16:00:00 AUTHORIZATION MANAGER, Duration: 30 day, Stop date: 07/24/18 8:00:00 [...] Total Volume: 200, Start date: 06/24/18 14:24:00 AUTHORIZATION MANAGER, Duration: 30 day, Stop date:...Notes: Same as: Cardene Concentration: (0.2 mg /1 ml ) sevelamer 800 mg=1 tab, No Longer [employer] carbonate 800 PO, 0 Refill(s) Active 2017 Medical MG Oral Tablet [place] [Renvela] amLODIPine 10 10 mg=1 tab, Active [place] mg oral tablet PO, Daily, 0 2017 Medical Refill(s) [place] Clonidine 0.1 mg, 1 tab, Inactive [place] Hydrochloride Route: PO, Drug 2018 Medical 0.1 MG Oral form: TAB, Center Tablet ONCE, Dosing Weight 45.085, kg, Start date: 06/24/18 13:13:00 AUTHORIZATION MANAGER, Stop date: 06/24/18 13:13:00 CSTNotes: (Same As: Catapres) Saline Flush 10 ml, Route: No Longer [employer] 0.9% IVP, Drug Form: Active 2018 Medical INJ, Dosing Center Weight 76.007, kg, PRN, PRN Line Flush, Start date: 06/24/18 12:07:00 AUTHORIZATION MANAGER, Duration: 30 day, Stop date: 07/24/18 12:06:00 CSTNotes: (Same as: BD Posiflush) Nystatin 100 1 appl, Route: No Longer [employer] UNT/MG Topical TOP, PRN, Drug Active 2017 Medical Powder form: PWDR, PRN [facility] Pro[facility], Start date: 06/24/18 12:07:00 AUTHORIZATION MANAGER, Duration: 30 day, Stop date: 07/24/18 12:06:00 CSTNotes: (Same as:Mycostatin, Nilstat) For external use only. atorvastatin 10 mg, 1 tab, No Longer Route: PO, Drug Active 2016 [facility] form: TAB, City Bedtime, Dosing Weight 76.007, kg, Start date: 01/09/17 21:00:00 CDT, Duration: 30 day, Stop date: 02/07/17 21:00:00 CDTNotes: (Same As: Lipitor) aspirin 81 mg 81 mg=1 tab, Active tablet, enteric PO, Daily, # 30 2016 [facility] coated tab, 0 City Refill(s) atorvastatin 10 10 mg=1 tab, Active mg oral tablet PO, Bedtime, # 2016 [facility] 30 tab, 0 City Refill(s) heparin 5,000 unit, 1 No Longer mL, Route: Active 2016 [facility] SUB-Q, Drug [facility] form: INJ, Q8H, Start date: 01/09/17 16:00:00 CDT, Duration: 30 day, Stop date: 02/08/17 8:00:00 CDTNotes: porcine heparin gabapentin 100 300 mg, 1 cap, No Longer MG Oral Capsule Route: PO, Drug Active 2016 [facility] form: CAP, [facility] Bedtime, Dosing Weight 76.007, kg, Start date: 01/08/17 21:00:00 CDT, Duration: 30 day, Stop date: 02/06/17 21:00:00 CDTNotes: (Same as: Neurontin) Saline Flush 10 ml, Route: Inactive 0.9% IVP, Drug Form: 2016 [facility] INJ, Dosing [facility] Weight 76.007, kg, Q12H, Start date: 01/08/17 21:00:00 CDT, Duration: 30 day, Stop date: 02/07/17 9:00:00 CDT Hydroxyzine 50 mg, 2 tab, No Longer Route: PO, Drug Active 2016 [facility] form: TAB, TID, [facility] Dosing Weight 76.007, kg, Start date: 01/08/17 19:00:00 CDT, Duration: 30 day, Stop date: 02/07/17 17:00:00 CDTNotes: (Same as: Atarax) Avoid alcohol. ARIPiprazole 10 mg, 2 tab, No Longer Route: PO, Drug Active 2016 [facility] form: TAB, [facility] Daily, Dosing Weight 76.007, kg, Start date: [...] No Longer Route: PO, Drug Active 2016 [facility] form: TAB, [facility] Daily, Dosing Weight 76.007, kg, Start date: 01/08/17 18:25:00 CDT, Duration: 30 day, Stop date: 02/07/17 9:00:00 CDTNotes: (Same as: Zoloft) Clonidine 0.2 mg, 2 tab, No Longer Hydrochloride Route: PO, Drug Active 2016 [facility] 0.2 MG Oral form: TAB, TID, [facility] Tablet Dosing Weight 76.007, kg, Start date: 01/08/17 18:24:00 CDT, Duration: 30 day, Stop date: 02/07/17 17:00:00 CDTNotes: (Same As: Catapres) 200 ACTUAT 2.49 mg, 3 mL, No Longer Albuterol 0.09 Route: NEB, Active 2017 [facility] MG/ACTUAT Drug Form: [facility] Metered Dose SOLN, Dosing Inhaler [ProAir Weight 76.007, HFA] kg, RQID, PRN Wheezing, Start date: 01/08/17 18:00:00 CDT, Duration: 30 day, Stop date: 02/07/17 17:59:00 CDTNotes: SEE RT DOCUMENTATION (Same as: Proventil) Hydralazine 10 mg, 0.5 mL, No Longer Route: IV, Drug Active 2016 [facility] form: INJ, Q4H, [facility] Dosing Weight 76.007, kg, PRN Elevated BP, Start date: 01/08/17 17:42:00 CDT, Duration: 30 day, Stop date: 02/07/17 17:41:00 CDTNotes: (Same as: Apresoline) Push over 5 minutes Clonidine 0.1 mg=0.5 tab, Active Hydrochloride PO, TID, 0 2016 [facility] 0.2 MG Oral Refill(s) [facility] Tablet ARIPiprazole 10 10 mg=1 tab, Active mg oral tablet PO, Daily, # 30 2016 [facility] tab, 0 [facility] Refill(s) Amlodipine 10 mg, PO, Active Daily, 0 2016 [facility] Refill(s) [facility] sertraline 50 50 mg=1 tab, Active mg oral tablet PO, Daily, 0 2016 [facility] Refill(s) [facility] gabapentin 100 300 mg=3 cap, Active MG Oral Capsule PO, Bedtime, 0 2016 [facility] Refill(s) [facility] Hydroxyzine 50 mg, PO, TID, Active 0 Refill(s) 2016 [facility] Enoxaparin 30 mg, 0.3 mL, No Longer Route: SUB-Q, Active 2016 [facility] Drug form: INJ, [facility] [id number], Dosing Weight 76.007, kg, Start date: 01/08/17 17:00:00 CDT, Stop date: 02/06/17 17:00:00 CDTNotes: (Same as: Lovenox) aspirin 81 mg 81 mg, 1 tab, No Longer tablet, enteric Route: PO, Drug Active 2016 [facility] coated form: ECTAB, [facility] Daily, Dosing Weight 76.007, kg, Start date: 01/08/17 16:49:00 CDT, Duration: 30 day, Stop date: 02/07/17 9:00:00 CDTNotes: Do not crush or chew. (Same As: Ecotrin) Famotidine 20 mg, 1 tab, No Longer Route: PO, Drug Active 2016 [facility] form: TAB, City Q12H, Dosing Weight 76.007, kg, Start date: 01/08/17 16:49:00 CDT, Duration: 30 day, Stop date: 02/07/17 9:00:00 CDTNotes: (Same as: Pepcid) Sodium Chloride 25 mL, Route: No Longer 0.9% IV IVP, Start Active 2016 [facility] date: 01/08/17 [facility] 16:48:00 CDT, Duration: 30 day, Stop date: 02/07/17 16:47:00 CDT, PRN Line Flush BD Normal 10 mL, Route: No Longer Saline Flush IVP, Drug Form: Active 2016 [facility] INJ, PRN, PRN [facility] Line Flush, Start date: 01/08/17 16:48:00 CDT, Duration: 30 day, Stop date: 02/07/17 16:47:00 CDTNotes: (Same as: BD Posiflush) BD Normal 5 mL, Route: No Longer Saline Flush IVP, Drug Form: Active 2016 [facility] INJ, PRN, PRN [facility] Line Flush, Start date: 01/08/17 16:47:00 CDT, Duration: 30 day, Stop date: 02/07/17 16:46:00 CDTNotes: (Same as: BD Posiflush) Saline Flush 10 ml, Route: Inactive 0.9% IVP, Drug Form: 2016 [facility] INJ, Dosing City Weight 76.007, kg, PRN, PRN Line Flush, Start date: 01/08/17 16:41:00 CDT, Duration: 30 day, Stop date: 02/07/17 16:40:00 CDT Allergies, Adverse Reactions, Alerts Substance Category Reaction Severity Reaction Status Date Comments Source type Reported No Known Assertion Drug [facility] Medication allergy Medical Allergies Center Immunizations Immunization Date Site Status Last Comments Source Given Updated pneumococcal Right completed Jimenez [facility] 13-valent vaccine 7 [facility] tetanus-diphtheri Right completed Katya [facility] a toxoids 9 [facility] Results Order Name Results Value Reference Date Interpretation Comments Source Range CHEM PANEL Magnesium 2.2 1.8 - 2.4 06/30 [facility] CHEM PANEL Phosphorus 4.6 2.5 - 4.5 06/[address] CHEM PANEL eGFR 8 06/30 Result [facility] Comment: The Medical eGFR is Center calculated [...] PANEL ALT 15 0 - 65 06/[address] CHEM PANEL AST 14 0 - 37 06/[address] CHEM PANEL Globulin 3.8 2.7 - 4.2 06/[address] CHEM PANEL A/G Ratio 0.8 0.7 - 1.6 06/[address] CHEM PANEL Albumin Lvl 3.2 3.5 - 5.0 06/[address] CHEM PANEL Total 7.0 6.4 - 8.4 06/30 [facility] Protein [facility] CHEM PANEL B/C Ratio 8 6 - 25 06/[address] CHEM PANEL Bili Total 0.5 0.2 - 1.3 06/[address] CHEM PANEL Alk Phos 130 39 - 136 06/[address] CHEM PANEL Glucose Lvl 88 70 - 99 06/[address] CHEM PANEL BUN 48 7 - 22 06/[address] CHEM PANEL Calcium Lvl 8.0 8.5 - 10.5 06/[address] CHEM PANEL AGAP 13.5 10.0 - 06/30 [place] 20.0 [facility] CHEM PANEL Chloride Lvl 104 95 - 109 06/30 /2017 [facility] CHEM PANEL CO2 24 24 - 32 06/[address] CHEM PANEL Creatinine 5.89 0.50 - 06/30 [facility] Lvl 1.40 [facility] CHEM PANEL Sodium Lvl 137 135 - 145 06/[address] CHEM PANEL Potassium 4.5 3.5 - 5.1 06/30 [facility] Lvl /2017 [facility] HEMATOLOGY MCH 27.7 27.0 - 06/30 [place] 31.0 [facility] HEMATOLOGY Hct 28.3 36.0 - 06/30 [facility] 48.0 [facility] HEMATOLOGY MCV 85.6 80.0 - 06/30 [facility] 98.0 [facility] HEMATOLOGY MCHC 32.3 32.0 - 06/30 [facility] 36.0 /2017 [facility] HEMATOLOGY RDW 16.0 11.5 - 06/30 [facility] 14.5 [facility] HEMATOLOGY Platelet 141 133 - 450 06/[address] HEMATOLOGY MPV 8.5 7.4 - 10.4 06/30 [facility]2017 [facility] HEMATOLOGY WBC 4.4 3.7 - 10.4 06/30 /2017 [facility] HEMATOLOGY RBC 3.31 4.20 - 06/30 [place] 5.40 [facility] HEMATOLOGY Hgb 9.2 12.0 - 06/30 [place] 16.0 [facility] HEMATOLOGY Monocytes # 0.9 0.0 - 0.8 06/[address] HEMATOLOGY Anisocyte 1+ None Seen 06/30 [facility] *ABN* /2017 [facility] (06/30/18 5:16 AM) [place] HEMATOLOGY Eosinophils 0.1 0.0 - 0.5 06/30 [facility] # /2017 [facility] HEMATOLOGY Target Cell Slight 06/30 [facility] /[address] [place] [address] HEMATOLOGY Monocytes 20.2 2.0 - 12.0 06/[address] HEMATOLOGY Basophils 0.9 0.0 - 1.0 06/[address] HEMATOLOGY Lymphocytes 32.1 20.0 - 06/30 [place] 40.0 [facility] HEMATOLOGY Eosinophils 1.2 0.0 - 4.0 06/[address] HEMATOLOGY Neutrophils 2.0 1.5 - 8.1 06/30 [facility] HEMATOLOGY Lymphocytes 1.4 1.0 - 5.5 06/30 [facility] HEMATOLOGY Segs 45.6 45.0 - 06/30 [facility] 75.0 [facility] HEMATOLOGY Plt Morph Normal 06/30 [facility] (06/30/18 5:16 AM) 2017 [facility] ANEMIA Iron 61 30 - 160 06/29 [facility]2017 [facility] ANEMIA TIBC 223 228 - 428 06/29 [facility]2017 [facility] ANEMIA UIBC 162 110 - 370 06/29 [facility] /2017 [facility] ANEMIA % [place] Fe 27 12 - 57 06/29 [facility]2017 [facility] ANEMIA Ferritin Lvl 428 5 - 204 06/29 [facility]2017 [facility] CHEM PANEL Phosphorus 3.6 2.5 - 4.5 06/[address] CHEM PANEL Magnesium 2.2 1.8 - 2.4 06/29 [facility] CHEM PANEL Bili Total 0.5 0.2 - 1.3 06/[address] CHEM PANEL Alk Phos 140 39 - 136 06/[address] CHEM PANEL AST 13 0 - 37 06/[address] CHEM PANEL ALT 14 0 - 65 06/[address] CHEM PANEL eGFR 13 06/29 Result [facility] Comment: The Medical eGFR is Center calculated [...] Albumin Lvl 3.0 3.5 - 5.0 06/29 [facility] /[address] [place] [address] CHEM PANEL Total 7.1 6.4 - 8.4 06/29 [facility] Protein [facility] CHEM PANEL Chloride Lvl 104 95 - 109 06/[address] CHEM PANEL Calcium Lvl 7.6 8.5 - 10.5 06/[address] CHEM PANEL CO2 25 24 - 32 06/[address] CHEM PANEL Potassium 4.2 3.5 - 5.1 06/29 [facility] /2017 [facility] CHEM PANEL Sodium Lvl 138 135 - 145 06/[address] CHEM PANEL Glucose Lvl 95 70 - 99 06/[address] CHEM PANEL BUN 30 7 - 22 06/[address] CHEM PANEL Creatinine 4.15 0.50 - 06/29 [place] Lvl 1.40 [facility] CHEM PANEL AGAP 13.2 10.0 - 06/29 [place] 20.0 [facility] CHEM PANEL A/G Ratio 0.7 0.7 - 1.6 06/[address] CHEM PANEL Globulin 4.1 2.7 - 4.2 06/[address] CHEM PANEL B/C Ratio 7 6 - 25 06/[address] HEMATOLOGY MPV 8.2 7.4 - 10.4 06/29 [facility]2017 [facility] HEMATOLOGY RDW 16.5 11.5 - 06/29 [place] 14.5 [facility] HEMATOLOGY Platelet 131 133 - 450 06/[address] HEMATOLOGY MCV 85.3 80.0 - 06/29 [place] 98.0 [facility] HEMATOLOGY MCH 27.9 27.0 - 06/29 [place] 31.0 [facility] HEMATOLOGY MCHC 32.7 32.0 - 06/29 [place] 36.0 [facility] HEMATOLOGY RBC 3.40 4.20 - 06/29 [place] 5.40 [facility] HEMATOLOGY Hgb 9.5 12.0 - 06/29 [place] 16.0 /2018 [facility] HEMATOLOGY WBC 5.3 3.7 - 10.4 06/[address] HEMATOLOGY Hct 29.0 36.0 - 06/29 [place] 48.0 [facility] HEMATOLOGY Retic Auto 1.6 0.5 - 1.5 06/[address] HEMATOLOGY Monocytes 20.2 2.0 - 12.0 06/[address] HEMATOLOGY Segs 50.7 45.0 - 06/29 [facility] 75.0 [facility] HEMATOLOGY Lymphocytes 27.3 20.0 - 06/29 [facility] 40.0 [facility] HEMATOLOGY Monocytes # 1.1 0.0 - 0.8 06/[address] HEMATOLOGY Eosinophils 0.1 0.0 - 0.5 06/29 [facility]2017 [facility] HEMATOLOGY Basophils 0.7 0.0 - 1.0 06/[address] HEMATOLOGY Neutrophils 2.7 1.5 - 8.1 06/29 [facility]2017 [facility] HEMATOLOGY Eosinophils 1.1 0.0 - 4.0 06/[address] HEMATOLOGY Lymphocytes 1.5 1.0 - 5.5 06/[address] CHEM PANEL Magnesium 2.2 1.8 - 2.4 06/28 [facility] l [facility] CHEM PANEL Phosphorus 4.1 2.5 - 4.5 06/[address] CHEM PANEL eGFR 6 06/28 [facility] Comment: The Medical eGFR is Center [...] PANEL CO2 25 24 - 32 06/[address] CHEM PANEL Glucose Lvl 94 70 - 99 06/[address] CHEM PANEL BUN 49 7 - 22 06/[address] CHEM PANEL Potassium 4.3 3.5 - 5.1 06/28 [place] Lvl /2017 [facility] CHEM PANEL Creatinine 7.38 0.50 - 06/28 [place] Lvl 1.40 [facility] CHEM PANEL Sodium Lvl 136 135 - 145 06/[address] CHEM PANEL Chloride Lvl 103 95 - 109 06/[address] CHEM PANEL Albumin Lvl 3.1 3.5 - 5.0 06/[address] CHEM PANEL Calcium Lvl 7.6 8.5 - 10.5 06/[address] CHEM PANEL Total 6.9 6.4 - 8.4 06/28 [facility] Protein [facility] CHEM PANEL AST 13 0 - 37 06/[address] CHEM PANEL Alk Phos 125 39 - 136 06/[address] CHEM PANEL ALT 11 0 - 65 06/[address] CHEM PANEL Bili Total 0.5 0.2 - 1.3 06/[address] CHEM PANEL Globulin 3.8 2.7 - 4.2 06/[address] CHEM PANEL B/C Ratio 7 6 - 25 06/[address] CHEM PANEL A/G Ratio 0.8 0.7 - 1.6 06/[address] CHEM PANEL AGAP 12.3 10.0 - 06/28 [place] 20.0 [facility] HEMATOLOGY MPV 8.5 7.4 - 10.4 06/[address] HEMATOLOGY Platelet 145 133 - 450 06/28 [facility]2017 [facility] HEMATOLOGY RDW 16.0 11.5 - 06/28 [place] 14.5 [facility] HEMATOLOGY MCHC 31.5 32.0 - 06/28 [place] 36.0 [facility] HEMATOLOGY MCH 26.9 27.0 - 06/28 [place] 31.0 [facility] HEMATOLOGY MCV 85.6 80.0 - 06/28 [place] 98.0 [facility] HEMATOLOGY Hct 29.4 36.0 - 06/28 [place] 48.0 [facility] HEMATOLOGY RBC 3.43 4.20 - 06/28 [place] 5.40 [facility] HEMATOLOGY WBC 5.1 3.7 - 10.4 06/[address] HEMATOLOGY Hgb 9.2 12.0 - 06/28 [place] 16.0 [facility] HEMATOLOGY Basophils # 0.1 0.0 - 0.2 06/28 [facility] /2017 [facility] HEMATOLOGY Eosinophils 0.1 0.0 - 0.5 06/28 [facility] # /2017 [facility] HEMATOLOGY Monocytes # 0.9 0.0 - 0.8 06/28 [facility] /2017 [facility] HEMATOLOGY Monocytes 17.7 2.0 - 12.0 06/28 [facility] /2017 [facility] HEMATOLOGY Segs 52.2 45.0 - 06/28 [place] 75.0 [facility] HEMATOLOGY Lymphocytes 27.8 20.0 - 06/28 [place] 40.0 [facility] HEMATOLOGY Lymphocytes 1.4 1.0 - 5.5 06/28 [facility] /2017 [facility] HEMATOLOGY Neutrophils 2.7 1.5 - 8.1 06/28 [facility] /2017 [facility] HEMATOLOGY Basophils 1.0 0.0 - 1.0 06/28 [facility] HEMATOLOGY Eosinophils 1.3 0.0 - 4.0 06/28 [facility] /[address] [place] [address] AMINO ACID MMA Qnt 589 0 - 378 06/[address] AMINO ACID Homocyst Tot 40.6 0.0 - 15.0 06/[address] ANEMIA Vitamin B12 521 254 - 1320 06/27 [facility] STUDY Lvl [facility] CHEM PANEL Ammonia 29.0 <=45.0 06/27 [facility] uMol/L [facility] IMMUNOLOGY RPR Non-Reactive Non 06/27 [facility] (06/27/18 1:12 PM) /2017 [facility] MOLECULAR HCV RNA <1.2 06/26 [facility] DIAGNOSTIC Log10 /2017 [facility] MOLECULAR HCV RNA Not Detected 06/26 [facility] DIAGNOSTIC VirLoad (06/26/18 2:58 PM) [facility] URINE AND UA <=1.0 0.1 - 1.0 06/26 [facility] STOOL Urobilinogen mg/dL [facility] URINE AND UA WBC 2 0 - 5 06/26 [facility] STOOL /[address] [place] [address] URINE AND UA Leuk Est Negative Negative 06/26 [facility] STOOL (06/26/18 8:03 AM) /2017 [facility] URINE AND UA Nitrite Negative Negative 06/26 [facility] STOOL (06/26/18 8:03 AM) [facility] URINE AND UA Sq Epi None Seen 06/26 [facility] STOOL [facility] URINE AND UA RBC <1 0 - 2 06/26 [facility] STOOL [facility] URINE AND UA Glucose Negative Negative 06/26 [facility] STOOL mg/dL mg/dL [facility] URINE AND UA Protein 50 mg/dL Negative 06/26 [facility] STOOL mg/dL [facility] URINE AND UA Blood Negative Negative 06/26 [facility] STOOL (06/26/18 8:03 AM) /2017 [facility] URINE AND UA pH 7.5 5.0 - 8.0 06/26 [facility] STOOL [facility] URINE AND UA Bili Negative Negative 06/26 [facility] STOOL *NA* [facility] (06/26/18 8:03 AM) [place] URINE AND UA Ketones Negative Negative 06/26 [facility] STOOL mg/dL mg/dL [facility] URINE AND UA Color Light Yellow Yellow 06/26 [facility] STOOL *NA* [facility] (06/26/18 8:03 AM) [place] URINE AND UA Spec Grav 1.004 <=1.030 06/26 [facility] STOOL [facility] URINE AND UA Turbidity Clear Clear 06/26 [facility] STOOL (06/26/18 8:03 AM) /2017 [facility] IMMUNOLOGY Hep Bs Ab 66.7 <=7.4 06/24 [place] mIU/mL [facility] IMMUNOLOGY Hep C Ab Positive 06/24 [place] *ABN* [facility] (06/24/18 1:39 PM) [place] IMMUNOLOGY Hep B Core Negative Negative 06/24 [place] Ab *NA* [facility] (06/24/18 1:39 PM) [place] IMMUNOLOGY Hep B Core Negative Negative 06/24 [place] IgM *NA* [facility] (06/24/18 1:39 PM) [place] IMMUNOLOGY Hep Bs Ag Negative Negative 06/24 [place] *NA* [facility] (06/24/18 1:39 PM) [place] BACTERIAL - MRSA by PCR Negative 06/24 [facility] SEROLOGY (06/24/18 1:05 PM) /2017 [facility] CARDIAC Troponin-I 0.05 0.00 - 06/24 [place] ENZYMES 0.40 [facility] CARDIAC BNP 1953 <=100 06/24 [place] ENZYMES pg/mL [facility] CARDIAC proBNP 59978 0 - 125 06/24 [facility] [place] ENZYMES /2017 [facility] CHEM PANEL Bili Direct 0.1 0.0 - 0.3 06/24 [facility] CHEM PANEL Bili 0.8 0.0 - 1.0 06/24 [facility] Indirect /2017 [facility] HEMATOLOGY PTT 36.4 22.9 - 06/24 [facility] 35.8 /2017 [facility] HEMATOLOGY PT 15.4 12.0 - 06/24 [facility] 14.7 [facility] HEMATOLOGY INR 1.24 0.85 - 06/24 [place] 1.17 [facility] HEMATOLOGY Basophils # 0.1 0.0 - 0.2 06/24 [facility] IMMUNOLOGY HIV Ag/Ab Negative Negative 06/24 [facility] 4th Gen *NA* /2017 [facility] (06/24/18 1:05 PM) [place] MOLECULAR Influenza A Negative Negative 06/24 [facility] DIAGNOSTIC PCR (06/24/18 1:05 PM) /2017 [facility] MOLECULAR Source [employer] Swab 06/24 [facility] Respiratory (06/24/18 1:05 PM) /2017 [facility] MOLECULAR Influenza B Negative Negative 06/24 [facility] DIAGNOSTIC PCR (06/24/18 1:05 PM) /2017 [facility] MOLECULAR RSV PCR Negative Negative 06/24 [facility] DIAGNOSTIC (06/24/18 1:05 PM) /2017 [facility] PARATHYROID Ca Ion WB 0.92 1.05 - 06/24 [facility] PROFILE . [facility] PARATHYROID Ca Norm WB 0.86 1.05 - 06/24 Result [facility] . Comment: Medical CRITICAL Center RESULT CALLED TO SHERRI BELLA AT 06/24/2018 15:42 BY SXP. READ BACK OK. SPECIAL Hgb A1C <3.5 % <=5.6 % 06/24 [facility] CHEMISTRY /2017 [facility] CHEM PANEL eGFR 14 01/10 Result Comment: [facility] eGFR is City calculated using the CKD-EPI [...] 0.50 - 01/10 MH Lvl 1.40 /2016 [facility] CHEM PANEL Calcium Lvl 8.3 8.5 - 10.5 01/10 [facility] CHEM PANEL AGAP 10.1 10.0 - 07 MH 20.0 [facility] CHEM PANEL CO2 32 24 - 32 01/10 [facility] CHEM PANEL Chloride Lvl 102 95 - 109 01/10 [facility] CHEM PANEL Potassium 4.1 3.5 - 5.1 01/10 Lvl [facility] CHEM PANEL Sodium Lvl 140 135 - 145 01/10 [facility] CHEM PANEL BUN 9 7 - 22 01/10 [facility] CHEM PANEL Glucose Lvl 91 70 - 99 01/10 [facility] CHEM PANEL Phosphorus 2.6 2.5 - 4.5 01/10 [facility] IMMUNOLOGY Hep Bs Ag Negative Negative 01/09 *NA* [facility] (01/09/17 6:45 PM) [facility] DRUG SCREEN UDS Note See Note 01/08 MH *NA* [facility] (01/08/17 6:00 PM) City DRUG SCREEN U Benzodia Negative Negative 01/08 MH Scr *NA* [facility] (01/08/17 6:00 PM) City DRUG SCREEN U Pinky Scr Negative Negative 01/08 MH *NA* [facility] (01/08/17 6:00 PM) City DRUG SCREEN U Cocaine Negative Negative 01/08 MH Scr *NA* [facility] (01/08/17 6:00 PM) [place] DRUG SCREEN U Cannab Scr Negative Negative 01/08 MH *NA* [facility] (01/08/17 6:00 PM) [place] DRUG SCREEN U Phencyc Negative Negative 01/08 MH Scr *NA* [facility] (01/08/17 6:00 PM) [place] DRUG SCREEN U Opiate Scr Negative Negative 01/08 MH *NA* /2016 [facility] (01/08/17 6:00 PM) [facility] DRUG SCREEN U Amph Scr Negative Negative 01/08 *NA* /2016 [facility] (01/08/17 6:00 PM) [facility] URINE AND UA <=1.0 0.1 - 1.0 01/08 STOOL Urobilinogen mg/dL /2016 [facility] URINE AND UA Ketones Negative 01/08 STOOL /2016 [facility] URINE AND UA Color Straw 01/08 STOOL /2016 [facility] URINE AND UA pH >=9.0 5.0 - 8.0 01/08 STOOL *ABN* /2016 [facility] (01/08/17 6:00 PM) [facility] URINE AND UA RBC <1 0 - 2 01/08 STOOL /2016 [facility] URINE AND UA WBC 1 0 - 5 01/08 STOOL /2016 [facility] URINE AND UA Glucose Negative Negative 01/08 STOOL mg/dL mg/dL /2016 [facility] URINE AND UA Spec Grav 1.004 <=1.030 01/08 STOOL /2016 [facility] URINE AND UA Nitrite Negative Negative 01/08 STOOL (01/08/17 6:00 PM) /2016 [facility] URINE AND UA Protein 30 mg/dL Negative 01/08 STOOL mg/dL /2016 [facility] URINE AND UA Turbidity Clear Clear 01/08 STOOL (01/08/17 6:00 PM) /2016 [facility] URINE AND UA Bili Negative Negative 01/08 STOOL *NA* /2016 [facility] (01/08/17 6:00 PM) [facility] URINE AND UA Blood Negative Negative 01/08 STOOL (01/08/17 6:00 PM) /2016 [facility] URINE AND UA Mucus Few /LPF None Seen 01/08 STOOL /LPF /2016 [facility] URINE AND UA Sq Epi Few /LPF Few /LPF 01/08 STOOL /2016 [facility] URINE AND UA Leuk Est Negative Negative 01/08 STOOL (01/08/17 6:00 PM) /2016 [facility] URINE AND UA Bacteria Occasional None Seen 01/08 STOOL /HPF /HPF /2016 [facility] HEMATOLOGY PTT 36.2 22.9 - 01/08 MH 35.8 /2016 [facility] HEMATOLOGY INR 1.05 0.85 - 01/08 MH 1.17 /2016 [facility] HEMATOLOGY PT 13.9 12.0 - 01/08 MH 14.7 /2016 [facility] LIPIDS VLDL 22 07/09 MH /2017 [facility] LIPIDS LDL 50 <=99 mg/dL 01/08 (Calculated) [facility] LIPIDS Chol 145 <=199 01/08 mg/dL [facility] LIPIDS Trig 109 <=149 01/08 mg/dL [facility] LIPIDS HDL 73 >=61 mg/dL 01/08 [facility] LIPIDS CHD Risk 1.99 3.90 - 01/08 5.80 /2016 [facility] SPECIAL Hgb A1C 4.6 <=5.6 % 01/08 CHEMISTRY /2016 [facility] CHEM PANEL B/C Ratio 3 6 - 25 01/08 [facility] CHEM PANEL AGAP 14.4 10.0 - 01/08 [facility] 20.0 [facility] CHEM PANEL Globulin 5.5 2.7 - 4.2 01/08 [facility] CHEM PANEL A/G Ratio 0.6 0.7 - 1.6 01/08 [facility] CHEM PANEL eGFR 8 01/08 Comment: [facility] eGFR is City calculated using the CKD-EPI [...] Glucose Lvl 85 70 - 99 01/08 [facility] CHEM PANEL CO2 26 24 - 32 01/08 [facility] CHEM PANEL ALT 14 0 - 65 01/08 [facility] CHEM PANEL Creatinine 6.23 0.50 - 01/08 Lvl 1.40 [facility] CHEM PANEL Albumin Lvl 3.3 3.5 - 5.0 07/ [facility] CHEM PANEL BUN 16 7 - 22 07/ /2016 [facility] CHEM PANEL AST 24 0 - 37 07/ [facility] CHEM PANEL Bili Total 0.5 0.2 - 1.3 01/08 [facility] CHEM PANEL Total 8.8 6.4 - 8.4 / MH [facility] CHEM PANEL Alk Phos 215 39 - 136 07/ [facility] CHEM PANEL Chloride Lvl 101 95 - 109 07 [facility] CHEM PANEL Potassium 5.4 3.5 - 5.1 07/ Lvl /2016 [facility] CHEM PANEL Calcium Lvl 9.1 8.5 - 10.5 01/08 [facility] CHEM PANEL Sodium Lvl 136 135 - 145 01/08 [facility] CHEM PANEL Magnesium 2.4 1.8 - 2.4 01/08 Lv /2016 [facility] HEMATOLOGY Hgb 10.5 12.0 - 01/08 MH 16.0 [facility] HEMATOLOGY Hct 31.5 36.0 - 01/08 MH 48.0 /2016 [facility] HEMATOLOGY WBC 9.0 3.7 - 10.4 01/08 /2016 [facility] HEMATOLOGY RBC 3.70 4.20 - 01/08 MH 5.40 /2016 [facility] HEMATOLOGY MCV 85.3 80.0 - 01/08 MH 98.0 /2016 [facility] HEMATOLOGY MCH 28.5 27.0 - 01/08 MH 31.0 /2016 [facility] HEMATOLOGY MCHC 33.4 32.0 - 01/08 MH 36.0 /2016 [facility] HEMATOLOGY RDW 12.9 11.5 - 01/08 MH 14.5 /2016 [facility] HEMATOLOGY Platelet 212 133 - 450 07 /2016 [facility] HEMATOLOGY MPV 9.0 7.4 - 10.4 07 /2016 [facility] HEMATOLOGY Monocytes 12.8 2.0 - 12.0 / /2016 [facility] HEMATOLOGY Segs 43.7 45.0 - 01/08 MH 75.0 /2016 [facility] HEMATOLOGY Lymphocytes 40.4 20.0 - 01/08 MH 40.0 /2016 [facility] HEMATOLOGY Segs-Bands # 4.0 1.5 - 8.1 01/08 [facility] HEMATOLOGY Eosinophils 1.9 0.0 - 4.0 07/ /2016 [facility] HEMATOLOGY Monocytes # 1.2 0.0 - 0.8 01/08 [facility] HEMATOLOGY Lymphocytes 3.7 1.0 - 5.5 01/08 [facility] HEMATOLOGY Basophils 1.2 0.0 - 1.0 01/08 [facility] HEMATOLOGY Eosinophils 0.2 0.0 - 0.5 01/08 [facility] HEMATOLOGY Basophils # 0.1 0.0 - 0.2 01/08 [facility] Pathology Reports No Data Provided for This Section Diagnostic Reports Report Value Date Source Chest 2 views DX EXAM: XR CHEST 1 VIEW 06/25/2018 [facility] DATE: 06/25/2018 5:32 AUTHORIZATION MANAGER Center INDICATION: - bilateral patchy opacities COMPARISON: [...] DX EXAM: XR CHEST 1 VIEW 06/24/2018 [facility] DATE: 06/24/2018 12:03 AUTHORIZATION MANAGER Center INDICATION: - icu ad. FINDINGS: Comparison [...] contrast MRI 01/08/2017 4:41 PM CDT 01/08/2017 [facility] MRI 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 [place] CT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 infarction; [...] Comments Source Systolic (mm Hg) 158 06/30/2018 [facility] Diastolic (mm Hg) 76 06/30/2018 [facility] Systolic (mm Hg) 149 06/30/2018 [facility] Diastolic (mm Hg) 69 06/30/2018 [facility] Systolic (mm Hg) 156 06/30/2018 [facility] Diastolic (mm Hg) 62 06/30/2018 [facility] Temperature Oral (F) 96.5 F 06/30/2018 [facility] Respitory Rate 20 06/30/2018 [facility] Heart Rate 83 06/30/2018 [facility] Temperature Oral (F) 96.3 F 06/30/2018 [facility] Respitory Rate 20 06/30/2018 [facility] Heart Rate 60 06/30/2018 [facility] Temperature Oral (F) 96.5 F 06/30/2018 [facility] Heart Rate 60 06/30/2018 [facility] Respitory Rate 20 06/30/2018 [facility] BMI Calculated 19.41 06/24/2018 [facility] Weight 45.085 06/24/2018 [facility] Height 152.4 cm 06/24/2018 [facility] Systolic (mm Hg) 128 01/10/2017 [facility] Diastolic (mm Hg) 72 01/10/2017 [facility] Respitory Rate 14 01/10/2017 [facility] Systolic (mm Hg) 100 01/10/2017 [facility] Diastolic (mm Hg) 72 01/10/2017 [facility] Respitory Rate 24 01/10/2017 [facility] Systolic (mm Hg) 118 01/10/2017 [facility] Diastolic (mm Hg) 60 01/10/2017 [facility] Respitory Rate 19 01/10/2017 [facility] BMI Calculated 32.73 01/08/2017 [facility] Weight 76.007 01/08/2017 [facility] Height 152.4 cm 01/08/2017 [facility] Encounters Location Location Encounter Encounter Reason Attending ADM DC Status Source Details Type Number For Provider Date Date Visit [facility] [id number] Tom 01/09 01/10 [facility] /2016 [facility] [id number] Adrian 06/24 06/30 Porsche Simental /2017 [facility] Procedures Procedure Code Date Perfomer Comments Source section [id number] [facility] Cholecystectomy [id number] [facility] Assessment and Plan Assessment and Plan Date Source Extracted from:Title: FM R1 Discharge Summary 06/30/2018 [facility] Author: Daniel Murray MD PHD Date: [...] emergent HD 2/2 hyperkalemia/uremia Final Diagnosis/Diagnoses: Acutepulmonaryedema Krjns-tv-[id number] ESRD(endstagerenaldisease) Hepaticencephalopathy Malnutrition cognitive impairment 2/2 suspected [...] Hepatitis C who presented as transfer from [facility] for emergent dialysis. She presented to [...] of Clonidine (home med) and transferred to [facility] for emergent dialysis as a direct ICU transfer. At [facility], patient's BP got as high as [...] with pt's sister, 2 brother s, aunt, [id number], and 2 daughters. Family apparently beleived pt [...] moving in w ith her brother and [id number]. PCP was contacted and given our findings. [...] With Zachery Fuentes, Call for appointment, PH: [phone], within: 2 Weeks, reason: Primary Care Physician follow up post hospitalization Daniel Murray MD/PhD Family Medicine PGY1 MSO# [id number] Extracted from:Title: [facility] progress note Author: AnitaAngela Date: 06/30/18 NEPHROLOGY PROGRESS NOTE Attending: Adrian [...] of Ms. To. Angela Howard, PGY5 P: [phone] C: [phone] Addendum by Rosamaria Palumbo MD on 06/30/2018 14:54 [facility] NEPHROLOGY STAFF ATTESTATION I saw this medically [...] 147/74, P 57 Tolerating procedure. Extracted from:Title: [facility] Consult Note Author: Neeta Lozano MD Date: 06/24/18 58 yr old woman with PMH of HTN, hepatitis C, HFpEF, previous cocaine abuse, bipolar disorder, COPD, CAD/ [place] 2012, Stroke in 2013, ESRD secondary to HTN started on HD 2 years ago. Patient usually has a TThS schedule and get transported to her HD center (in [facility]) with a car service last HD about 2 weeks ago per patient, her transport service stopped coming and she never followed up afterwards presented to [facility] with 3 days of shortness of breath and swollen breasts and arms, found to have hypertensive urgency, hyperkalemia and pulmonary edema 1-ESRD: Secondary toHTN Duration 2 years HD center [facility] dialysis in [place] Insurance Agent unknown to patient HD schedule TThS Last HD 2 weeks ago Dry weight unknown to patient Access left upper extremity AVF HD order for today- 2 hrs, 400/800, UF 1-3 kg as rommel will reassess tomorrow for further HDneeds 2-Volume status: pulmonary edema Hypervolemia Will control with iHD 3-Electrolytes: hyperkalemia Na, Ca, Mg unremarkable per OSH labs labs in [facility] pending Will control with iHD Renal diet [...] by Rosamaria Palumbo MD on 06/25/2018 21:43 AUTHORIZATION MANAGER [place] NEPHROLOGY STAFF ATTESTATION I saw and evaluated this medically complex patient on 06/25/18. I have reviewed the labs and radiographic data, discussed the plans with the fellow and renal team, and agree with this note. Extracted from:Title: MICU History and Physical Author: Miguelito Valero MD Date: 06/24/18 58YOF with PMH ofESRD, COPD, CVA,HTN, Hepatitis C who presented as transfer from [facility] for emergent dialysis found to have [...] _HD Antihypertensives Extracted from:Title: Clinical Document 01/10/2017 [facility] Author: Stefano Magana MD Date: 01/10/17 Subjective: [...] present. Stefano Magana M.D., [facility] Extracted from:Title: RENAL Author: Stefano Magana MD [...] TID. enoxaparin: 30 mg, 0.3 mL, SUB-Q, [id number]. famotidine: 20 mg, 1 tab, PO, Q12H. [...] 24hr Tot 0 0 0 CCL error: %SLW-W-986-SMT_EDOC_COMMON(0,0)[id number]:1146Overflow on array out of bound at (size:1,occur:10). CCL error: %FDL-R-291-SMT_EDOC_COMMON(0,0)039314:1146Overflow on array out of bound at (size:1,occur:5). CCL error: %REQ-U-068-SMT_EDOC_COMMON(0,0)[id number]:1146Overflow on array out of bound at (size:1,occur:5). CCL error: %BGL-J-125-SMT_EDOC_COMMON(0,0)247239:1146Overflow on array out of bound at (size:1,occur:7). CCL error: %QJO-B-828-SMT_EDOC_COMMON(0,0)525506:1146Overflow on array out of bound at (size:1,occur:2). [...] d/w Dr. Wood Magana M.D., [facility] Extracted from:Title: History and Physical Author: Brendan [...] History Date Source Social History TypeResponse 08/05/2013 [facility] Sexual Sexually active: No. Alcohol Past, Type [...] Cessation Counseling No Social History TypeResponse 08/05/2013 [facility] Sexual Sexually active: No. Alcohol Past, [...]
--- OUTSIDE RECORDS SUMMARY | 2019-02-22 14:23 | XMS REPORT ---
[...] Problem Coronary artery disease involving I25.10 Active [place] coronary artery of [place] heart, angina presence unspecified Assessment Coronary artery disease involving I25.10 Active [place] coronary artery of [place] heart, angina presence unspecified Assessment Vascular dementia with behavior F01.51 Active disturbance Problem Chronic obstructive pulmonary J44.9 Active disease, unspecified COPD type Assessment History of pulmonary embolism Z86.711 Active Assessment HTN, goal below 130/80 I10 Active Problem History of CVA with residual I69.30 Active deficit Medications Medication Code Code Instructions Start End Status Dosage System Date Date Trazodone HCl ND 59967987002 50 MG Orally Active 1 tablet at Once a day bedtime as needed Ventolin HFA [facility] 19869604684 108 (90 Base) Jul 18, Active 2 puffs as MCG/ACT 2019 needed Inhalation every 6 hrs Ramipril ND 47736935690 5 MG Orally Active 1 capsule Once a day Clonidine HCl [facility] 19088540211 0.2 MG Orally Active 1 tablet Twice a day Renvela [facility] 12190540987 800 MG Orally Active 1 tablet Three times a with meals day Breo Ellipta [facility] 46216326705 200-25 MCG/INH OctoberFeb 05, Active 1 puff Inhalation Once 2018 2019 a day Carvedilol [facility] 77924350464 12.5 MG Orally Active as directed BID Isosorbide [facility] 56582411038 30 MG Orally Active 1 tablet in Mononitrate Once a day the morning Results No Known Results Summary Purpose eClinicalWorks Submission
--- OUTSIDE RECORDS SUMMARY | 2019-02-22 14:23 | XMS REPORT ---
:1960 Author Organization eClinicalWorks Care Team Providers Name Role Phone JovelPatrick Provider Role Unavailable Allergies, Adverse Reactions, Alerts Substance Reaction Event Type N.K.D.A. Info Not Available Non Drug Allergy Problems Problem Type Condition Code Onset Dates Condition Status Problem Coronary artery disease involving I25.10 Active [place] coronary artery of [place] heart, angina presence unspecified Problem History of [...] Assessment Coronary artery disease involving I25.10 Active [place] coronary artery of [place] heart, angina presence unspecified Assessment End stage renal disease N18.6 Active Problem Insomnia, unspecified type G47.00 Active Medications Medication Code Code Instructions Start End Status Dosage System Date Date Carvedilol [facility] 50969031366 12.5 MG Orally Active as directed BID Clonidine HCl [facility] 51024824431 0.2 MG Orally Active 1 tablet Twice a day Isosorbide [facility] 89643733271 30 MG Orally Active 1 tablet in Mononitrate Once a day the morning Renvela [facility] 37359234766 800 MG Orally Apr 07, Active 1 tablet Three times a 2019 with meals day Ramipril [facility] 88191624637 5 MG Orally Active 1 capsule Once a day Trazodone HCl [facility] 29787406926 50 MG Orally Active 1 tablet at Once a day bedtime as needed Results No Known Results Summary Purpose eClinicalWorks Submission
--- OUTSIDE RECORDS SUMMARY | 2019-02-22 14:23 | XMS REPORT ---
[...] of [place] heart, angina presence unspecified Problem Chronic obstructive [...] Medications Results No Known Results Summary Purpose [employer] Submission
--- OUTSIDE RECORDS SUMMARY | 2019-02-22 14:23 | XMS REPORT ---
:1960 Author Organization eClinicalWorks Care Team Providers Name Role Phone Patrick Jovel Provider Role Unavailable Allergies, Adverse Reactions, Alerts Substance Reaction Event Type N.K.D.A. Info Not Available Non Drug Allergy Problems Problem Type Condition Code Onset Dates Condition Status Problem Coronary artery disease involving I25.10 Active [place] coronary artery of [place] heart, angina presence unspecified Problem History of [...] End Date Status Dosage System Date Benzonatate [facility] 71041591106 200 MG Orally Aug 24August Active 1 capsule Three times a 2019 2018 day Renvela ND 68631275689 800 MG Orally Apr 07, Active 1 tablet Three times a 2018 with meals day Ventolin HFA ND 58948850085 108 (90 Base) Jul 18, Active 2 puffs as MCG/ACT 2019 needed Inhalation every 6 hrs Clonidine HCl ND 84086641500 0.2 MG Orally Active 1 tablet Twice a day Ramipril ND 76412201034 5 MG Orally Active 1 capsule Once a day Carvedilol ND 59563987480 12.5 MG Orally Active as directed BID Trazodone HCl ND 79092687604 50 MG Orally Active 1 tablet at Once a day bedtime as needed Isosorbide ND 63409962146 30 MG Orally Active 1 tablet in Mononitrate Once a day the morning Azithromycin ND 14741832040 250 MG Orally Aug 24, Aug 29, Active 2 tablets Once a day 2018 2018 on the first day, then 1 tablet daily for 4 days Results Name Result Date Reference Range Unit Abnormality Flag STREP A RAPID ----Result NEGATIVE [id number] Summary Purpose eClinicalWorks Submission
--- OUTSIDE RECORDS SUMMARY | 2019-02-22 14:23 | XMS REPORT ---
:1960 Author Organization eClinicalWorks Care Team Providers Name Role Phone Med Patrick Provider Role Unavailable Allergies No Known Allergies Problems Problem Type Condition Code Onset Dates Condition Status Problem Coronary artery disease involving I25.10 Active [place] coronary artery of [place] heart, angina presence unspecified Problem History of [...] Date Status Dosage System Date Ventolin HFA [facility] 91015796764 108 (90 Base) Jul 18, Active 2 puffs as MCG/ACT 2019 needed Inhalation every 6 hrs Results No Known Results Summary Purpose [employer]ClinicalWorks Submission
[2019-02-22 15:12] LABS: Absolute Lymphocytes (CBC) 1.4 K/uL (0.7-4.9); Basophils % 0.6 % (0-1.3); Hematocrit 29.1 % (36.0-45.0); Lymphocytes % 20.3 % (15.3-44.8); MPV 8.5 fL (7.6-11.3); RBC Red Blood Cell Count 3.27 M/uL (3.86-4.86)
[2019-02-22 15:14] LABS: Protime INR 0.98
[2019-02-22 15:27] LABS: Potassium 5.1 mmol/L (3.5-5.1)
--- NOTE | 2019-02-22 16:06 | RAD REPORT ---
EXAM DESCRIPTION: US - Upper Ext Artery Uni Ba - 02/22/2019 3:31 pm CLINICAL HISTORY: Dialysis patient, upper extremity swelling COMPARISON: None. FINDINGS: Sonographic evaluation of the left upper extremity dialysis graft in the arterial tree per formed. A tortuous dialysis graft is seen in the left upper extremity. Graft is patent. Inflow or outflow marilyn nosis not identifiable. No arterial side occlusion identifiable. No mass or abnormal fluid collection in the soft tissues. No hematoma seen. IMPRESSION: Dialysis graft is patent. No inflow or outflow stenosis confirmed. No hematoma, mass or other extravascular soft tissue finding seen.
[2019-02-22] MEDS ORDERED: METOPROLOL TARTRATE 5 MG/5 ML INJ IV ONE (16:38)
--- NOTE | 2019-02-22 18:01 | ER ---
Nurse's Notes [facility] Name: Michelle Ochoa Age: 58 yrs Sex: Female : 1960 Arrival Date: 02/22/2019 Time: 14:19 Bed 30 Private MD: Diagnosis: Edema, unspecified-Left upper arm Presentation: 02/22 14:21 Presenting complaint: Patient states: My left arm is swollen and that is where I get my la1 dialysis. CMS intact, significant swelling to LUE. Transition of care: patient was not received from another setting of care. Onset of symptoms was February 22, 2019. Risk Assessment: Do you want to hurt yourself or someone else? Patient reports no desire to harm self or others. Initial Sepsis Screen: Does the patient meet any 2 criteria? No. Patient's initial sepsis screen is negative. Does the patient have a suspected source of infection? No. Patient's initial sepsis screen is negative. Care prior to arrival: None. 14:21 Method Of Arrival: Ambulatory la1 14:21 Acuity: ZAID 2 la1 Historical: - Allergies: 14:22 No Known Allergies; la1 - PMHx: 14:22 Anemia; CVA; Dialysis- T/Th/Sat; ENDOCARDITIS; Hypertension; kidney failure; PATRICK; Renal la1 Disease; - Immunization history:: Adult Immunizations up to date. - Social history:: Smoking status: Patient/guardian denies using tobacco. - Ebola Screening: : No symptoms or risks identified at this time. Screenin:35 Abuse screen: Denies threats or abuse. Denies injuries from another. Nutritional rv screening: No deficits noted. Tuberculosis screening: No symptoms or risk factors identified. Fall Risk None identified. Assessment: 14:34 General: Appears in no apparent distress. comfortable, Behavior is calm, cooperative. rv Pain: Denies pain. Neuro: Level of Consciousness is awake, alert, obeys commands, Oriented to person, place, time, situation. Cardiovascular: Patient's skin is warm and dry. Cardiovascular: Dialysis shunt: in the left bicep, with palpable thrill, with auscultated bruit, with no erythema, severe edema, no bleeding noted. Respiratory: Airway is patent. GI: No signs and/or symptoms were reported involving the gastrointestinal system. : No signs and/or symptoms were reported regarding the genitourinary system. EENT: No signs and/or symptoms were reported regarding the EENT system. Derm: Skin is intact. Musculoskeletal: No signs and/or symptoms reported regarding the musculoskeletal system. 15:49 Reassessment: Patient appears in no apparent distress at this time. Patient and/or rv family updated on plan of care and expected duration. Pain level reassessed. Patient is alert, oriented x 3, equal unlabored respirations, skin warm/dry/pink. PATIENT CAME BACK FROM RADIOLOGY. 18:20 Reassessment: FOR DISCHARGE ALREADY. REPORT GIVEN TO THE SNF. AWAITING rv TRANSPORTATION FROM SNF. PATIENT UPDATED. 20:02 Reassessment: transport is going to be at least another hour or two waiting time. the rv long-term advised to put the patient in the lobby while waiting for transportation. Vital Signs: 14:22 BP 178 / 78; Pulse 61; Resp 16; Temp 97.6; Pulse Ox 98% on R/A; Weight 63.5 kg; la1 15:49 BP 187 / 81; Pulse 61; Resp 16; Pulse Ox 97% on R/A; rv 18:12 BP 175 / 88; Pulse 64; Resp 16; Temp 97.9; Pulse Ox 99% on R/A; rv ED Course: 14:19 Patient arrived in ED. mr 14:22 Triage completed. la1 14:23 Arm band placed on right wrist. la1 14:26 Anastacio Monique, SAÚL is Primary Nurse. rv 14:29 Efren Wilson NP is PHCP. pm1 14:29 Fortino Weaver MD is Attending Physician. pm1 14:35 Patient has correct armband on for positive identification. Bed in low position. Call rv light in reach. Side rails up X 1. Pulse ox on. NIBP on. 15:02 PT-INR Sent. rv 15:02 BMP Sent. rv 15:02 CBC with Diff Sent. rv 15:02 Inserted saline lock: 22 gauge in right forearm, using aseptic technique. Missed rv attempt(s): 22 gauge in right antecubital area. 15:36 Upper Ext Artery Uni Ba In Process Unspecified. EDMS 17:59 Zachery Estevez DO is Referral Physician. pm1 18:11 No provider procedures requiring assistance completed. IV discontinued, intact, rv bleeding controlled, No redness/swelling at site. Pressure dressing applied. Administered Medications: No medications were administered Outcome: 18:00 Discharge ordered by MD. pm1 18:18 Discharged to long-term. rv 18:18 Condition: unchanged 18:18 Discharge instructions given to patient, Instructed on discharge instructions, follow up and referral plans. Demonstrated understanding of instructions, follow-up care. 20:03 Patient left the ED. rv Signatures: Dispatcher [employer] JASIEL SantiagoElena Lee, RN RN la1 Efren Wilson NP H[employer]CHO[employer] MUSIC TEACHER pm1 Anastacio Monique RN RN rv Corrections: (The following items were deleted from the chart) 22:02 20:02 Reassessment: transport is going to be at least another hour or two waiting time. rv [facility]
--- NOTE | 2019-02-22 18:02 | EDPHYS ---
Physician Documentation [facility] Name: Michelle Ochoa Age: 58 yrs Sex: Female : 1960 Arrival Date: 02/22/2019 Time: 14:19 Bed 30 Private MD: ED Physician Fortino Weaver HPI: 02/22 15:08 This 58 yrs old Black Female presents to ER via Ambulatory with complaints of Arm pm1 Swelling. 15:08 The patient or guardian complains of swelling. The complaints affect the left bicep and pm1 left tricep. Context: The problem was sustained at a [facility] or assisted living facility, resulted from unknown cause. Onset: The symptoms/episode began/occurred this morning. Treatment prior to arrival includes: no previous treatment. Modifying factors: The symptoms are alleviated by nothing. the symptoms are aggravated by nothing. Associated signs and symptoms: The patient has no apparent associated signs or symptoms, Pertinent positives: swelling, Pertinent negatives: decreased range of motion, deformity, erythema, fever, numbness, pain, tingling. Severity of symptoms: in the emergency department the symptoms are unchanged. The patient has not experienced similar symptoms in the past. dialysis yesterday. Historical: - Allergies: 14:22 No Known Allergies; la1 - PMHx: 14:22 Anemia; CVA; Dialysis- T//Mon; ENDOCARDITIS; Hypertension; kidney failure; PATRICK; Renal la1 Disease; - Immunization history:: Adult Immunizations up to date. - Social history:: Smoking status: Patient/guardian denies using tobacco. - Ebola Screening: : No symptoms or risks identified at this time. ROS: 15:08 Constitutional: Negative for fever, chills, and weight loss, Neck: Negative for injury, pm1 pain, and swelling, Cardiovascular: Negative for chest pain, palpitations, and edema, Respiratory: Negative for shortness of breath, cough, wheezing, and pleuritic chest pain, Abdomen/GI: Negative for abdominal pain, nausea, vomiting, diarrhea, and constipation, Back: Negative for injury and pain. 15:08 Skin: Negative for injury, rash, and discoloration, Neuro: Negative for headache, weakness, numbness, tingling, and seizure. 15:08 MS/extremity: Positive for swelling, of the left upper arm, Negative for decreased range of motion, deformity, ecchymosis, erythema. Exam: 15:08 Constitutional: This is a well developed, well nourished patient who is awake, alert, pm1 and in no acute distress. Head/Face: Normocephalic, atraumatic. Eyes: Pupils equal round and reactive to light, extra-ocular motions intact. Lids and lashes normal. Conjunctiva and sclera are non-icteric and not injected. Cornea within normal limits. Periorbital areas with no swelling, redness, or edema. ENT: Nares patent. No nasal discharge, no septal abnormalities noted. Tympanic membranes are normal and external auditory canals are clear. Oropharynx with no redness, swelling, or masses, exudates, or evidence of obstruction, uvula midline. Mucous membranes moist. Neck: Trachea midline, no thyromegaly or masses palpated, and no cervical lymphadenopathy. Supple, full range of motion without nuchal rigidity, or vertebral point tenderness. No Meningismus. Chest/axilla: Normal chest wall appearance and motion. Nontender with no deformity. No lesions are appreciated. Cardiovascular: Regular rate and rhythm with a normal S1 and S2. No gallops, murmurs, or rubs. No pulse deficits. Respiratory: Lungs have equal breath sounds bilaterally, clear to auscultation and percussion. No rales, rhonchi or wheezes noted. No increased work of breathing, no retractions or nasal flaring. Abdomen/GI: Soft, non-tender, with normal bowel sounds. No distension or tympany. No guarding or rebound. No evidence of tenderness throughout. Back: No spinal tenderness. No costovertebral tenderness. Full range of motion. Skin: Warm, dry with normal turgor. Normal color with no rashes, no lesions, and no evidence of cellulitis. MS/ Extremity: Pulses equal, no cyanosis. Neurovascular intact. Full, normal range of motion. 15:08 Cardiovascular: Dialysis shunt: in the left arm, with palpable thrill, with auscultated bruit, with no erythema, with no edema, no bleeding noted 15:08 Neuro: Orientation: is normal, Motor: is normal, moves all fours, Sensation: is normal, no obvious gross deficits. Vital Signs: 14:22 BP 178 / 78; Pulse 61; Resp 16; Temp 97.6; Pulse Ox 98% on R/A; Weight 63.5 kg; la1 15:49 BP 187 / 81; Pulse 61; Resp 16; Pulse Ox 97% on R/A; rv 18:12 BP 175 / 88; Pulse 64; Resp 16; Temp 97.9; Pulse Ox 99% on R/A; rv MDM: 14:32 Patient medically screened. pm1 15:08 ED course: Patient reports swelling to biceps and triceps area. No swelling is present pm1 below the elbow. Patient's left arm is pain free and I would expect the whole left arm to be swollen for the presence of a DVT. Therefore venous ultrasound to rule out DVT was not performed. 17:15 ED course: Patient does not know names of her physicians. 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 17:30 Physician consultation: Nephrology Severino was called at 17:17, was contacted at pm1 17:30, regarding consult, patient's condition, Will call back after contacting dialysis nurses at facility for patient's baseline presentation. 17:52 Physician consultation: Zachery Estevez DO was contacted at 17:52, regarding consult, pm1 patient's condition, Base on my evaluation and work up there does not appear to be an emergent situation. After discussion with Dr. Estevez, will send the patient to [facility] and she will go to dialysis tomorrow. If there are any issues present that are seen by the dialysis nurses they will contact Dr. Estevez and the patient will be sent to the ER here for reevlaution.. 17:52 Differential diagnosis: Infection, [place] Syndrome, DVT, Arterial occlusion, pm1 pseudoaneurysm, aneurysm, hematoma, avascular hematoma, mass. 17:58 Data reviewed: vital signs. Data interpreted: Pulse oximetry: on room air is 97 %. pm1 Interpretation: normal. Counseling: I had a detailed discussion with the patient and/or guardian regarding: the historical points, exam findings, and any diagnostic results supporting the discharge/admit diagnosis, lab results, radiology results, the need for outpatient follow up, to return to the emergency department if symptoms worsen or persist or if there are any questions or concerns that arise at home. 02/22 14:41 Order name: CBC with Diff; Complete Time: 15:42 pm1 02/22 14:41 Order name: BMP; Complete Time: 15:40 pm1 02/22 14:41 Order name: PT-INR; Complete Time: 15:18 pm1 02/22 15:08 Order name: Upper Ext Artery Uni Ba; Complete Time: 16:26 EDMS 02/22 19:21 Order name: CBC Smear Scan; Complete Time: 15:42 EDMS Administered Medications: No medications were administered Disposition: 02/23 09:15 Co-signature as Attending Physician, Fortino Weaver MD I agree with the assessment and [facility] plan of care. Disposition: 02/22/19 18:00 Discharged to Home. Impression: Edema, unspecified - Left upper arm. - Condition is Stable. - Discharge Instructions: Peripheral Edema. - Medication Reconciliation Form, Thank You Letter, Antibiotic Education, Prescription Opioid Use form. - Follow up: Emergency Department; When: As needed; Reason: Worsening of condition. Follow up: Zachery Estevez DO; When: Tomorrow; Reason: Worsening of condition. - Problem is new. - Symptoms are unchanged. Signatures: Dispatcher [employer] [facility] Fortino Weaver MD MD cha Attema, Lee, RN RN la1 Efren Wilson, MANAGER RELOCATION MANAGER RELOCATION pm1 Anastacio Monique RN RN rv Corrections: (The following items were deleted from the chart) 02/22 15:07 14:42 Lower Extremity Artery Uni Ltd+[id number].RAD.BRZ ordered. [facility] 20:03 18:00 02/22/2019 18:00 Discharged to Home. Impression: Edema, unspecified - Left upper rv arm. Condition is Stable. Forms are Medication Reconciliation Form, Thank You Letter, Antibiotic Education, Prescription Opioid Use. Follow up: Emergency Department; When: As needed; Reason: Worsening of condition. Follow up: Zachery Estevez; When: Tomorrow; Reason: Worsening of condition. Problem is new. Symptoms are unchanged. pm1
[2019-02-22 19:20] LABS: Blood Morphology Comment NOT SEEN (NOT SEEN); Platelet Estimate ADEQ; Urine White Blood Cell Casts OK
[2019-02-22 23:10] VITALS: BP 175/88; TEMP 97.9; O2SAT 99
== END 2019-02-22 20:03 | disposition home or self-care (01) ==
LOC: ER 14:16
DX: R60.0 Localized edema (principal)
CPT/HCPCS: 36415; 80048; 85025; 85610; 93931; 99284

== ENCOUNTER 2019-04-25 20:41 | Observation (INO) | payer OTHER ==
[2019-04-25 21:21] LABS: Absolute Lymphocytes (CBC) 1.8 K/uL (0.7-4.9); Basophils % 1.2 % (0-1.3); Hematocrit 39.9 % (36.0-45.0); Lymphocytes % 26.8 % (15.3-44.8); MPV 8.1 fL (7.6-11.3); RBC Red Blood Cell Count 4.39 M/uL (3.86-4.86)
[2019-04-25 21:23] LABS: Protime INR 0.95
[2019-04-25] MEDS ORDERED: MORPHINE 4 MG/ML SYR ONE (21:38)
[2019-04-25] MEDS ORDERED: ONDANSETRON 4 MG/2 ML VIAL ONE (21:38)
[2019-04-25] MEDS ORDERED: ASPIRIN 81 MG CHEWABLE TABLET ONE (21:49)
--- NOTE | 2019-04-25 21:49 | RAD REPORT ---
EXAM DESCRIPTION: RAD - Chest Single View - 04/25/2019 9:20 pm CLINICAL HISTORY: CHEST PAIN Chest pain. COMPARISON: Chest Single View dated 01/19/2019; Chest Pa And Lat (2 Views) dated 09/30/2018; Chest Sin gle View dated 05/28/2018; Chest Single View dated 05/27/2018 FINDINGS: Portable technique limits examination quality. The lungs are grossly clear. The heart is mildly prominent size with sternotomy wires present. No dis placed fractures.
[2019-04-25 21:55] LABS: ALT/SGPT 17 U/L (12-78); AST/SGOT 26 U/L (15-37); Albumin 3.5 g/dL (3.4-5.0); Alkaline Phosphatase 118 U/L (45-117); BUN Blood Urea Nitrogen 19 mg/dL (7-18); Bicarbonate 33 mmol/L (21-32); Bilirubin Direct < 0.1 mg/dL (0-0.2); Bilirubin Total 0.1 mg/dL (0.2-1.0); Glucose Level 86 mg/dL (74-106); Magnesium 2.4 mg/dL (1.8-2.4); NT PRO-BNP 14347 pg/mL (<125); Protein, Total 8.2 g/dL (6.4-8.2); Sodium Level 137 mmol/L (136-145); Troponin (Emerg Dept Use Only) 0.04 ng/mL (0.0-0.045)
[2019-04-25 21:56] LABS: Potassium 4.9 mmol/L (3.5-5.1)
[2019-04-25 21:59] LABS: Blood Morphology Comment NOT SEEN (NOT SEEN); Platelet Estimate ADEQ
--- NOTE | 2019-04-25 22:39 | ER ---
Nurse's Notes [facility] Name: Michelle Ochoa Age: 58 yrs Sex: Female : 1960 Arrival Date: 04/25/2019 Time: 20:45 Bed 28 Private MD: Diagnosis: Chest pain, unspecified Presentation: 04/25 20:37 Presenting complaint: EMS states: that pt is having chest pain and epigastric pain that fc radiates across abd to back. Denies any nausea or vomiting but is having some shortness of breath. Did have dialysis today. Transition of care: patient was not received from another setting of care. Onset of symptoms was April 25, 2019 at 19:50. Risk Assessment: Do you want to hurt yourself or someone else? Patient reports no desire to harm self or others. Initial Sepsis Screen: Does the patient meet any 2 criteria? No. Patient's initial sepsis screen is negative. Does the patient have a suspected source of infection? No. Patient's initial sepsis screen is negative. Care prior to arrival: Medication(s) given: ASA, 81 mg, x 4. 20:37 Method Of Arrival: EMS: [facility] 20:37 Acuity: ZAID 3 fc Historical: - Allergies: 21:06 No Known Allergies; fc - Home Meds: 21:06 albuterol sulfate 90 mcg/actuation Inhl HFAA 1 puff nightly [Active]; acetaminophen 325 fc mg Oral tab 2 tabs q4hrs prn [Active]; amantadine HCl 100 mg Oral cap 2 caps on Mondays [Active]; aspirin 81 mg Oral TbEC 1 tab once daily [Active]; clonidine HCl 0.1 mg oral tab 1 tab 2 times per day [Active]; docusate sodium 100 mg Oral cap 1 cap 2 times per day [Active]; fluticasone furoate inhalation inhalation 1 puff once daily [Active]; isosorbide mononitrate 30 mg Oral Tb24 1 tab twice a day [Active]; melatonin 3 mg Oral tab 3 tab nightly [Active]; polyethylene glycol 3350 miscellaneous powd q 12hrs prn [Active]; sevelamer HCl oral 800 mg oral 1 tab 3 times per day [Active]; Tums Oral 500 mg 2 tabs tid [Active]; - PMHx: 21:06 CHF; Dementia; Anemia; Hypertension; ENDOCARDITIS; CVA; Bronchitis; PATRICK; fc osteoarthritis; Dialysis- T/Th/Sat; kidney failure; Renal Disease; ESRD; - PSHx: 21:06 Cholecystectomy; Left upper arm fistula; fc - Immunization history:: Last tetanus immunization: up to date Flu vaccine is not up to date. - Social history:: Smoking status: Patient uses tobacco products, smokes one-half pack cigarettes per day, Patient/guardian denies using alcohol, street drugs. - Ebola Screening: : Patient negative for fever greater than or equal to 101.5 degrees Fahrenheit, and additional compatible Ebola Virus Disease symptoms Patient denies exposure to infectious person Patient denies travel to an Ebola-affected area in the 21 days before illness onset. Screenin:37 Abuse screen: Denies threats or abuse. Nutritional screening: No deficits noted. fc Tuberculosis screening: No symptoms or risk factors identified. Fall Risk None identified. Assessment: 21:04 General: Appears in no apparent distress. comfortable, Behavior is calm, cooperative. mg2 Pain: Complains of pain in chest Pain radiates to posterior chest Pain currently is 5 out of 10 on a pain scale. Quality of pain is described as aching, Pain began gradually, Is intermittent. Neuro: Level of Consciousness is awake, alert, obeys commands, Oriented to person, place, time, situation. Cardiovascular: Reports chest pain, Capillary refill < 3 seconds Patient's skin is warm and dry. Respiratory: Airway is patent Respiratory effort is even, unlabored, Respiratory pattern is regular, symmetrical. GI: No signs and/or symptoms were reported involving the gastrointestinal system. : No signs and/or symptoms were reported regarding the genitourinary system. EENT: No signs and/or symptoms were reported regarding the EENT system. Derm: Skin is intact, is healthy with good turgor, Skin is pink, warm \T\ dry. normal. Musculoskeletal: Circulation, motion, and sensation intact. Capillary refill < 3 seconds. 22:00 Reassessment: Patient and/or family updated on plan of care and expected duration. Pain jv1 level reassessed. Patient is alert, oriented x 3, equal unlabored respirations, skin warm/dry/pink. Patient states symptoms have improved. 23:00 Reassessment: Patient appears in no apparent distress at this time. Patient and/or jv1 family updated on plan of care and expected duration. Pain level reassessed. Patient is alert, oriented x 3, equal unlabored respirations, skin warm/dry/pink. Patient denies pain at this time. Patient states feeling better. 04/26 00:00 Reassessment: Patient appears in no apparent distress at this time. Patient and/or jv1 family updated on plan of care and expected duration. Pain level reassessed. Patient is alert, oriented x 3, equal unlabored respirations, skin warm/dry/pink. Patient denies pain at this time. Patient states feeling better. Patient states symptoms have improved. 00:42 Reassessment: Patient appears in no apparent distress at this time. Patient and/or jv1 family updated on plan of care and expected duration. Pain level reassessed. Patient is alert, oriented x 3, equal unlabored respirations, skin warm/dry/pink. Patient denies pain at this time. Patient states feeling better. Patient states symptoms have improved. 01:00 Reassessment: Patient appears in no apparent distress at this time. Patient and/or jv1 family updated on plan of care and expected duration. Pain level reassessed. Patient is alert, oriented x 3, equal unlabored respirations, skin warm/dry/pink. Patient denies pain at this time. Patient states feeling better. Patient states symptoms have improved. Vital Signs: 04/25 20:37 BP 148 / 70; Pulse 65; Resp 18; Temp 98.1(O); Pulse Ox 100% on R/A; Weight 70.31 kg fc (R); Height 5 ft. 0 in. (152.40 cm) (R); Pain 5/10; 21:30 BP 145 / 70; Pulse 60; Resp 18; Temp 98.5; Pulse Ox 100% ; jv1 22:32 BP 173 / 76; Pulse 61; Resp 18; Pulse Ox 100% on R/A; mg2 23:00 BP 160 / 70; Pulse 60; Resp 18; Temp 98; Pulse Ox 100% ; jv1 04/26 00:00 BP 146 / 70; Pulse 61; Resp 18; Temp 98; Pulse Ox 100% ; Pain 0/10; jv1 00:42 BP 150 / 70; Pulse 59; Resp 18; Temp 98; Pulse Ox 98% ; Pain 0/10; jv1 01:00 BP 155 / 70; Pulse 60; Resp 18; Temp 98; Pulse Ox 100% ; Pain 0/10; jv1 04/25 20:37 Body Mass Index 30.27 (70.31 kg, 152.40 cm) ED Course: 04/25 20:37 Arm band placed on Patient placed in an exam room, on a stretcher. fc 20:37 Patient has correct armband on for positive identification. Placed in gown. Bed in low fc position. Call light in reach. Side rails up X 1. air sampling and monitoring on. Pulse ox on. NIBP on. 20:37 No provider procedures requiring assistance completed. fc 20:45 Patient arrived in ED. fc 20:48 Triage completed. fc 21:00 Oxygen administration via nasal cannula \T\ 2L/min Response to oxygen therapy: symptoms jv1 improved. 21:01 Scott Terrazas MD is Attending Physician. gs 21:03 Inserted saline lock: 20 gauge in right hand, using aseptic technique. Blood collected. mg2 21:15 Fortino Meehan PA is PHCP. cp 21:19 XRAY Chest (1 view) In Process Unspecified. EDMS 22:37 Roxanna Felipe MD is Hospitalizing Provider. cp 04/26 01:12 Patient admitted, IV remains in place. intact. jv1 Administered Medications: 04/25 21:35 CANCELLED (Physician Discretion): fentaNYL (PF) 25 mcg IVP once; RASS on ADMIN: cp Combtv4, Very Agttd3, Agttd2, Rstlss1, AlertClm0, Drwsy-1, Lt Sdtn-2, Mod Sdtn-3, Dp Sdtn-4, UnArsble-5 21:55 Drug: Aspirin Chewable Tablet 324 mg Route: PO; jv1 22:49 Follow up: Response: No adverse reaction jv1 21:56 Drug: morphine 4 mg Route: IVP; Site: right hand; jv1 22:48 Follow up: Response: No adverse reaction jv1 23:50 Drug: GI Cocktail without - (Maalox Suspension 30 ml, Lidocaine Liquid 2 % 15 jv1 ml) Route: PO; 23:50 Drug: ProTONIX 40 mg Route: IVP; Site: right hand; jv1 Outcome: 22:38 Decision to Hospitalize by Provider. cp 04/26 00:30 Admitted to Med/surg accompanied by nurse, via stretcher, room 211. jv1 Condition: improved Instructed on the need for admit. 01:21 Patient left the ED. fc Signatures: Dispatcher [employer] EDMS Luz Plaza RN RN fc Fortino Meehan PA PA cp Starr, Gregory, MD MD gs Gardose, Michele, RN RN [facility] [place] Lisa Monique RN RN jv1
--- NOTE | 2019-04-25 22:39 | EDPHYS ---
Physician Documentation [facility] Name: Michelle Ochoa Age: 58 yrs Sex: Female : 1960 Arrival Date: 04/25/2019 Time: 20:45 Bed 28 Private MD: ED Physician Scott Terrazas HPI: 04/25 21:30 This 58 yrs old Black Female presents to ER via EMS with complaints of Chest Pain. cp 21:30 The patient or guardian reports chest pain that is located primarily in the substernal cp area, epigastric area. Onset: today. 21:30 The pain radiates to back. cp 21:30 Associated signs and symptoms: Pertinent positives: nausea, shortness of breath, cp Pertinent negatives: cough, diaphoresis, lower extremity pain, lower extremity swelling, recent travel, syncope, vomiting. The chest pain is described as aching. 21:30 Duration: The patient or guardian reports multiple episodes, that wax and wane. cp Severity of pain: in the emergency department the pain has improved mildly. Historical: - Allergies: 21:06 No Known Allergies; fc - Home Meds: 21:06 albuterol sulfate 90 mcg/actuation Inhl HFAA 1 puff nightly [Active]; acetaminophen 325 fc mg Oral tab 2 tabs q4hrs prn [Active]; amantadine HCl 100 mg Oral cap 2 caps on Mondays [Active]; aspirin 81 mg Oral TbEC 1 tab once daily [Active]; clonidine HCl 0.1 mg oral tab 1 tab 2 times per day [Active]; docusate sodium 100 mg Oral cap 1 cap 2 times per day [Active]; fluticasone furoate inhalation inhalation 1 puff once daily [Active]; isosorbide mononitrate 30 mg Oral Tb24 1 tab twice a day [Active]; melatonin 3 mg Oral tab 3 tab nightly [Active]; polyethylene glycol 3350 miscellaneous powd q 12hrs prn [Active]; sevelamer HCl oral 800 mg oral 1 tab 3 times per day [Active]; Tums Oral 500 mg 2 tabs tid [Active]; - PMHx: 21:06 CHF; Dementia; Anemia; Hypertension; ENDOCARDITIS; CVA; Bronchitis; PATRICK; fc osteoarthritis; Dialysis- T//Sat; kidney failure; Renal Disease; ESRD; - PSHx: 21:06 Cholecystectomy; Left upper arm fistula; fc - Immunization history:: Last tetanus immunization: up to date Flu vaccine is not up to date. - Social history:: Smoking status: Patient uses tobacco products, smokes one-half pack cigarettes per day, Patient/guardian denies using alcohol, street drugs. - Ebola Screening: : Patient negative for fever greater than or equal to 101.5 degrees Fahrenheit, and additional compatible Ebola Virus Disease symptoms Patient denies exposure to infectious person Patient denies travel to an Ebola-affected area in the 21 days before illness onset. ROS: 21:35 Eyes: Negative for injury, pain, redness, and discharge. cp 21:35 Constitutional: Negative for body aches, chills, fever, poor PO intake. 21:35 Cardiovascular: Positive for chest pain, Negative for edema, palpitations. cp 21:35 ENT: Negative for drainage from ear(s), ear pain, sore throat, difficulty swallowing, cp difficulty handling secretions. 21:35 Respiratory: Negative for cough, shortness of breath, wheezing. 21:35 Abdomen/GI: Positive for abdominal pain, nausea, of the epigastric area, Negative for vomiting, diarrhea, constipation. 21:35 Back: Positive for radiated pain, Negative for injury or acute deformity. 21:35 : Negative for urinary symptoms, flank pain. 21:35 Skin: Negative for rash. 21:35 Neuro: Negative for altered mental status, dizziness, headache, syncope, weakness. 21:35 All other systems are negative. Exam: 21:10 ECG was reviewed by the Attending Physician. cp 21:45 Constitutional: The patient appears in no acute distress, alert, awake, cp non-diaphoretic, non-toxic, well developed, well nourished, uncomfortable. 21:45 Head/Face: Normocephalic, atraumatic. cp 21:45 Eyes: Periorbital structures: appear normal, Conjunctiva: normal, no exudate, no cp injection, Sclera: no appreciated abnormality, Lids and lashes: appear normal, bilaterally. 21:45 ENT: External ear(s): are unremarkable, Nose: is normal, Mouth: Lips: moist, Oral mucosa: moist, Posterior pharynx: is normal, airway is patent. 21:45 Neck: ROM/movement: is normal, is supple, without pain, no range of motions cp limitations, no nuchal rigidity. 21:45 Chest/axilla: Inspection: normal, Palpation: is normal, no crepitus, no tenderness. 21:45 Cardiovascular: Rate: normal, Rhythm: regular, Pulses: Pulses are 2+ in right radial artery and left radial artery. Edema: is not appreciated, JVD: is not appreciated. 21:45 Respiratory: the patient does not display signs of respiratory distress, Respirations: normal, no use of accessory muscles, no retractions, no splinting, no tachypnea, labored breathing, is not present, Breath sounds: are clear throughout, no decreased breath sounds, no stridor, no wheezing. 21:45 Abdomen/GI: Inspection: abdomen appears normal, Bowel sounds: active, all quadrants, Palpation: soft, in all quadrants, mild abdominal tenderness, in the epigastric area, rebound tenderness, is not appreciated, involuntary guarding, is not appreciated. 21:45 Back: pain, that is mild, ROM is normal. 21:45 Skin: no rash present. 21:45 Neuro: Orientation: to person, place \T\ time. Mentation: is normal, Motor: moves all fours, strength is normal. Vital Signs: 20:37 BP 148 / 70; Pulse 65; Resp 18; Temp 98.1(O); Pulse Ox 100% on R/A; Weight 70.31 kg fc (R); Height 5 ft. 0 in. (152.40 cm) (R); Pain 5/10; 21:30 BP 145 / 70; Pulse 60; Resp 18; Temp 98.5; Pulse Ox 100% ; jv1 22:32 BP 173 / 76; Pulse 61; Resp 18; Pulse Ox 100% on R/A; mg2 23:00 BP 160 / 70; Pulse 60; Resp 18; Temp 98; Pulse Ox 100% ; jv1 04/26 00:00 BP 146 / 70; Pulse 61; Resp 18; Temp 98; Pulse Ox 100% ; Pain 0/10; jv1 00:42 BP 150 / 70; Pulse 59; Resp 18; Temp 98; Pulse Ox 98% ; Pain 0/10; jv1 01:00 BP 155 / 70; Pulse 60; Resp 18; Temp 98; Pulse Ox 100% ; Pain 0/10; jv1 04/25 20:37 Body Mass Index 30.27 (70.31 kg, 152.40 cm) fc MDM: 04/25 21:19 Patient medically screened. cp 22:00 Differential diagnosis: abnormal EKG, acute myocardial infarction, acute pericarditis, cp esophagitis, gastritis, pancreatitis, pleurisy, pneumonia, pneumothorax, stable angina, unstable angina. 22:35 The patient was given aspirin in the Emergency Department. cp 22:35 Data reviewed: vital signs, nurses notes, lab test result(s), EKG, radiologic studies, cp plain films, and as a result, I will admit patient. Test interpretation: by ED physician or midlevel provider: ECG, plain radiologic studies. 22:45 Physician consultation: Roaxnna Felipe MD was called at 22:35, was contacted at 22:35, cp regarding admission, to the telemetry unit. patient's condition. 22:45 Response to treatment: the patient's symptoms have markedly improved after treatment. cp 04/25 21:02 Order name: Basic Metabolic Panel; Complete Time: 22:21 mg2 04/25 21:02 Order name: CBC with Diff; Complete Time: 22:21 mg2 04/25 21:32 Interpretation: Normal except: RDW 15.3; MN% 17.5. cp 04/25 21:02 Order name: LFT's; Complete Time: 22:21 mg2 04/25 21:02 Order name: Magnesium; Complete Time: 22:21 mg2 04/25 21:02 Order name: NT PRO-BNP; Complete Time: 22:21 mg2 04/25 21:02 Order name: PT-INR; Complete Time: 21:31 mg2 04/25 21:02 Order name: Troponin (emerg Dept Use Only); Complete Time: 22:21 mg2 04/25 21:29 Order name: Manual Differential; Complete Time: 22:21 EDMS 04/25 23:02 Order name: Basic Metabolic Panel EDMS 04/25 23:02 Order name: Basic Metabolic Panel EDNV 04/25 23:02 Order name: CBC with Automated Diff EDNV 04/25 23:02 Order name: CBC with Automated Diff EDMS 04/25 23:02 Order name: Lipid Profile EDMS 04/25 23:02 Order name: Lipid Profile EDNV 04/25 21:02 Order name: XRAY Chest (1 view); Complete Time: 22:21 mg2 04/25 21:02 Order name: EKG; Complete Time: 21: mg2 04/25 21:02 Order name: Cardiac monitoring; Complete Time: 21: mg2 04/25 23:02 Order name: CONS Physician Consult EDNV 04/25 23:02 Order name: Heart Healthy EDNV 04/25 23:02 Order name: Echo with Doppler EDNV 04/25 23:02 Order name: EKG Electrocardiogram EDNV 04/25 23:02 Order name: EKG Electrocardiogram EDNV 04/25 23:02 Order name: Troponin I EDNV 04/25 23:02 Order name: Troponin I EDNV 04/25 23:02 Order name: Troponin I EDNV 04/25 21:02 Order name: EKG - Nurse/Tech; Complete Time: 21: mg2 04/25 21:02 Order name: IV Saline Lock; Complete Time: 21: mg2 04/25 21:02 Order name: Labs collected and sent; Complete Time: 21: mg2 04/25 21:02 Order name: O2 Per Protocol; Complete Time: 21: mg2 04/25 21:02 Order name: O2 Sat Monitoring; Complete Time: 21:03 mg2 EC:10 Rate is 67 beats/min. Rhythm is regular. MA interval is normal. QRS interval is normal. cp QT interval is prolonged at 446 msec. T waves are Inverted in leads I, aVL, V5, V6. Interpreted by me. Reviewed by me. Administered Medications: 21:35 CANCELLED (Physician Discretion): fentaNYL (PF) 25 mcg IVP once; RASS on ADMIN: cp Combtv4, Very Agttd3, Agttd2, Rstlss1, AlertClm0, Drwsy-1, Lt Sdtn-2, Mod Sdtn-3, Dp Sdtn-4, UnArsble-5 21:55 Drug: Aspirin Chewable Tablet 324 mg Route: PO; jv1 22:49 Follow up: Response: No adverse reaction jv1 21:56 Drug: morphine 4 mg Route: IVP; Site: right hand; jv1 22:48 Follow up: Response: No adverse reaction jv1 23:50 Drug: GI Cocktail without - (Maalox Suspension 30 ml, Lidocaine Liquid 2 % 15 jv1 ml) Route: PO; 23:50 Drug: ProTONIX 40 mg Route: IVP; Site: right hand; jv1 Disposition: 04/25/19 22:38 Hospitalization ordered by Roxanna Felipe for Observation. Preliminary diagnosis is Chest pain, unspecified. - Bed requested for Telemetry/MedSurg (observation). - Status is Observation. fc - Condition is Stable. - Problem is new. - Symptoms have improved. UTI on Admission? No Signatures: Dispatcher [employer] EDMS Collette Richardson RN RN Luz Plaza RN RN Fortino Meehan PA PA cp Gardose, Michele, RN RN [facility] [place] Lisa Monique RN RN jv1 Corrections: (The following items were deleted from the chart) 21:35 21:31 fentaNYL (PF) 25 mcg IVP once; RASS on ADMIN: Combtv4, Very Agttd3, Agttd2, cp Rstlss1, AlertClm0, Drwsy-1, Lt Sdtn-2, Mod Sdtn-3, Dp Sdtn-4, UnArsble-5 ordered. cp 23:22 22:38 Hospitalization Ordered by Roxanna Felipe MD for Observation. Preliminary mw diagnosis is Chest pain, unspecified. Bed requested for Telemetry/MedSurg (observation). Status is Observation. Condition is Stable. Problem is new. Symptoms have improved. UTI on Admission? No. cp 04/26 01:21 04/25 23:22 04/25/2019 22:38 Hospitalization Ordered by Roxanna Felipe MD for fc Observation. Preliminary diagnosis is Chest pain, unspecified. Bed requested for Telemetry/MedSurg (observation). Status is Observation. Condition is Stable. Problem is new. Symptoms have improved. UTI on Admission? No. mw 04/27 00:48 04/25 21:30 The pain radiates to cp cp 04/27 00:49 04/25 21:30 Associated signs and symptoms: Pertinent positives: nausea, Pertinent cp negatives: diaphoresis, dizziness, lower extremity pain, lower extremity swelling, syncope, vomiting, cp
[2019-04-25] MEDS ORDERED: ACETAMINOPHEN 500 MG TAB PO PRN (22:57)
[2019-04-25] MEDS ORDERED: ALPRAZOLAM 0.25 MG TABLET PO PRN (22:57)
[2019-04-25] MEDS ORDERED: MAGNE/ALUM HYDROXD 30 ML UCUP ONE (23:39)
[2019-04-25] MEDS ORDERED: PANTOPRAZOLE 40 MG INJ ONE (23:39)
[2019-04-25] MEDS ORDERED: LIDOCAINE VISCOUS 2% SOLN 15 ML UDC ONE (23:43)
[2019-04-26 01:42] VITALS: BMI 29.5
[2019-04-26] MEDS: ENOXAPARIN 30 MG/0.3 ML SQ SCH ×2 (01:46→10:20)
[2019-04-26 04:10] VITALS: O2SAT 98
[2019-04-26] MEDS: MORPHINE 4 MG/ML SYR IV PRN ×2 (05:40→10:25)
[2019-04-26 05:48] LABS: Absolute Lymphocytes (CBC) 1.7 K/uL (0.7-4.9); Hematocrit 37.5 % (36.0-45.0); Lymphocytes % 28.7 % (15.3-44.8); MPV 8.1 fL (7.6-11.3); RBC Red Blood Cell Count 4.13 M/uL (3.86-4.86)
[2019-04-26 05:56] LABS: Potassium 5.5 mmol/L (3.5-5.1)
--- NOTE | 2019-04-26 07:23 | EKG ---
Test Date: 2019-04-25 Test Time: 20:58:55 Billposter: CHRISTELLET MEASUREMENT RESULTS: Intervals: Rate: 67 VA: 164 QRSD: 74 QT: 446 QTc: 471 Hinkley: P: 50 VA: 164 QRS: 1 T: 152 INTERPRETIVE STATEMENTS: Normal sinus rhythm T wave abnormality, consider lateral ischemia Prolonged QT Abnormal ECG Compared to ECG 01/19/2019 13:58:28 Prolonged QT interval now present Sinus bradycardia no longer present Myocardial infarct finding no longer present T-wave abnormality still present Possible ischemia still present Electronically Signed On 04-26-19 07:21:53 CDT by Bam Terry
[2019-04-26] MEDS ORDERED: REGADENOSON 0.4 MG/5 ML SYR IV ONE (07:50)
[2019-04-26] MEDS ORDERED: INFLUENZA VACCINE (for 3y+) 0.5 ML DOSE IMVAC ONE (08:00)
[2019-04-26] MEDS ORDERED: ASPIRIN EC 81 MG TAB PO SCH (09:00)
[2019-04-26] MEDS ORDERED: METOPROLOL TAR 50 MG TAB PO SCH (09:00)
--- NOTE | 2019-04-26 09:58 | P.HP ---
Certification for Inpatient Patient admitted to: Observation With expected LOS: <2 Midnights Patient will require the following post-hospital care: None Practitioner: I am a practitioner with admitting privileges, knowledge of patient current condition, hospital course, and medical plan of care. Services: Services provided to patient in accordance with Admission requirements found in Title 42 Section 412.3 of the Code of Federal Regulations Patient History Date of Service: 04/26/19 Reason for admission: CHEST PAIN RULE OUT ACUTE CORONARY SYNDROME History of Present Illness: Patient is a 58-year-old female who came to the hospital with chest discomfort. Pain was mainly in the sternal region. There was no radiation. Patient's pain was persistent and patient has some diaphoresis. Patient denies any nausea or vomiting. Patient came into the ER for further evaluation. Patient has a history of diabetes and hypertension. Patient is also end-stage renal disease. Patient will be worked up for chest pain and will be ruled out for acute coronary syndrome. Patient states she had a stress test done 2 years ago. We do not have any records of this. Will go ahead and repeat in the morning if her troponins are negative. Allergies No Known Allergies Allergy (Verified 04/26/19 01:48) Home Medications: Acetaminophen [Tylenol] 2 tab PO Q4HP PRN 04/26/19 Albuterol Sulfate [Albuterol Sulfate Hfa] 8.5 gm IH BEDTIME 04/26/19 Amantadine HCl [Amantadine] 2 tab PO EVERY 7TH DAY 04/26/19 Aspirin Chewable [Aspirin Chewable*] 81 mg PO DAILY 04/26/19 Clonidine HCl [Clonidine HCl ER] 0.1 mg PO BID 04/26/19 Docusate Sodium 100 mg PO BID 04/26/19 Famotidine/Ca Carb/Mag Hydrox [Tums Dual Action Tablet Chew] 2 tab PO TID Fluticasone Furoate [Arnuity Ellipta] 200 mcg IH DAILY 04/26/19 Isosorbide Mononitrate [Isosorbide Mononitrate ER] 30 mg PO BID 04/26/19 Melatonin/Pyridoxine HCl (B6) [Melatonin 3 mg Tablet] 1 each PO BEDTIME Polyethylene Glycol 3350 [Miralax] 17 gm PO BIDP PRN 04/26/19 Sennosides/Docusate Sodium [Docuzen Tablet] 1 each PO BID 04/26/19 Sevelamer Carbonate 800 mg PO TID 04/26/19 - Past Medical/Surgical History Has patient received pneumonia vaccine in the past: No Diabetic: No -: Pulmonary hypertension -: COPD -: History of CVA (left side weakness) -: Hepatitis-C -: ESRD, dialysis Tuesdays, and Saturdays -: Anemia of chronic disease -: cardiac bypass 2014 -: CHF -: Non compliance -: YOLANDA fistula -: -: Cholecystectomy Psychosocial/ Personal History: Patient lives by herself. She is . She has 2 children. - Family History Mother Medical History: Heart disease Sister Medical History: Hypertension - Social History Smoking Status: Current every day smoker Alcohol use: Yes CD- Drugs: No Caffeine use: Yes Place of Residence: [facility] Review of Systems 10-point ROS is otherwise unremarkable Physical Examination - Vital Signs Temperature: 96.8 F Blood Pressure: 191/86 Pulse: 84 Respirations: 20 Pulse Ox (%): 98 - Physical Exam General: Alert, In no apparent distress, Oriented x3 HEENT: Atraumatic, PERRLA, Mucous membr. moist/pink, EOMI, Sclerae nonicteric Neck: Supple, 2+ carotid pulse no bruit, No LAD, Without JVD or thyroid abnormality Respiratory: Clear to auscultation bilaterally, Normal air movement Cardiovascular: Regular rate/rhythm, Normal S1 S2, Systolic murmur Gastrointestinal: Normal bowel sounds, Soft and benign, Non-distended, No tenderness Musculoskeletal: No clubbing, No swelling, No tenderness Integumentary: No rashes Neurological: Normal gait, Normal speech, Normal strength at 5/5 x4 extr, Normal tone, Sensation intact, Cranial nerves 3-12 intact, Normal affect Lymphatics: No axilla or inguinal lymphadenopathy - Studies Laboratory Data (last 24 hrs) 04/25/19 21:00: PT 11.2, INR 0.95 04/25/19 21:00: WBC 6.5, Hgb 13.2, Hct 39.9, Plt Count 194 04/25/19 21:00: Sodium 137, Potassium 4.9, BUN 19 H, Creatinine 4.54 H, Glucose 86, Magnesium 2.4, Total Bilirubin 0.1 L, AST 26, ALT 17, Alkaline Phosphatase 118 H Assessment & Plan - Problems (Diagnosis) (1) Chest pain, rule out acute myocardial infarction Current Visit: Yes Status: Acute (2) Cocaine abuse Onset Date: 05/28/18 Current Visit: No Status: Acute (3) Congestive heart failure Onset Date: 01/10/18 Current Visit: No Status: Acute Qualifiers: (4) Volume overload Onset Date: 05/08/17 Current Visit: No Status: Acute Qualifiers: (5) ESRD (end stage renal disease) on dialysis Onset Date: 01/06/16 Current Visit: No Status: Chronic (6) HTN (hypertension) Onset Date: 05/08/17 Current Visit: No Status: Chronic Qualifiers: (7) Tobacco abuse Onset Date: 01/25/18 Current Visit: No Status: Chronic (8) COPD (chronic obstructive pulmonary disease) Onset Date: 01/25/18 Current Visit: No Status: Suspected Qualifiers: - Plan 1. Serial troponins and EKG 2. Cardiology consultation 3. Echocardiogram and inpatient stress test 4. Anti-platelet therapy, anti coagulation, beta-quang, statin, and O2 as needed 5. IV morphine for pain 6. Nitro p.r.n. Discharge Plan: Home Plan to discharge in: 24 Hours - Advance Directives Does patient have a Living Will: No Does patient have a Durable POA for Healthcare: No - Code Status/Comfort Care Code Status Assessed: Yes Code Status: Full Code Critical Care: No Time Spent Managing PTS Care (In Minutes): 45
--- NOTE | 2019-04-26 10:01 | P.DS ---
Discharge Date: 04/26/19 Disposition: ROUTINE DISCHARGE Discharge Condition: GOOD Reason for Admission: CHEST PAIN RULE OUT ACUTE CORONARY SYNDROME Consultations: Cardiology - Problems (1) Chest pain, rule out acute myocardial infarction Current Visit: Yes Status: Acute (2) Cocaine abuse Onset Date: 05/28/18 Current Visit: No Status: Acute (3) Congestive heart failure Onset Date: 01/10/18 Current Visit: No Status: Acute Qualifiers: (4) Volume overload Onset Date: 05/08/17 Current Visit: No Status: Acute Qualifiers: (5) ESRD (end stage renal disease) on dialysis Onset Date: 01/06/16 Current Visit: No Status: Chronic (6) HTN (hypertension) Onset Date: 05/08/17 Current Visit: No Status: Chronic Qualifiers: (7) Tobacco abuse Onset Date: 01/25/18 Current Visit: No Status: Chronic (8) COPD (chronic obstructive pulmonary disease) Onset Date: 01/25/18 Current Visit: No Status: Suspected Qualifiers: Brief History of Present Illness: Patient is a 58-year-old female who came to the hospital with chest discomfort. Pain was mainly in the sternal region. There was no radiation. Patient's pain was persistent and patient has some diaphoresis. Patient denies any nausea or vomiting. Patient came into the ER for further evaluation. Patient has a history of diabetes and hypertension. Patient is also end-stage renal disease. Patient will be worked up for chest pain and will be ruled out for acute coronary syndrome. Patient states she had a stress test done 2 years ago. We do not have any records of this. Will go ahead and repeat in the morning if her troponins are negative. Hospital Course: patient's troponins were negative. Patient's stress test and echocardiogram are pending at this time. If these are negative then patient should be stable for discharge with outpatient follow-up. We will continue with anti- inflammatories at the time of discharge. Vital Signs/Physical Exam: Temp Pulse Resp BP Pulse Ox 96.8 F 84 20 191/86 H 98 04/26/19 09:58 04/26/19 09:58 04/26/19 09:58 04/26/19 09:58 04/26/19 09:58 General: Alert, In no apparent distress, Oriented x3 Laboratory Data at Discharge: WBC 5.8 K/uL (4.3-10.9) 04/26/19 05:11 Hgb 12.5 g/dL (12.0-15.0) 04/26/19 05:11 Hct 37.5 % (36.0-45.0) 04/26/19 05:11 Plt Count 186 K/uL (152-406) 04/26/19 05:11 PT 11.2 SECONDS (9.5-12.5) 04/25/19 21:00 INR 0.95 04/25/19 21:00 Sodium 137 mmol/L (136-145) 04/26/19 05:11 Potassium 5.5 mmol/L (3.5-5.1) H 04/26/19 05:11 BUN 26 mg/dL (7-18) H 04/26/19 05:11 Creatinine 5.29 mg/dL (0.55-1.3) H* 04/26/19 05:11 Glucose 87 mg/dL (74-106) 04/26/19 05:11 Magnesium 2.4 mg/dL (1.8-2.4) 04/25/19 21:00 Total Bilirubin 0.1 mg/dL (0.2-1.0) L 04/25/19 21:00 AST 26 U/L (15-37) 04/25/19 21:00 ALT 17 U/L (12-78) 04/25/19 21:00 Alkaline Phosphatase 118 U/L (45-117) H 04/25/19 21:00 Troponin I 0.03 ng/mL (0.0-0.045) 04/26/19 07:15 Triglycerides 65 mg/dL (<150) 04/26/19 05:11 Cholesterol 159 mg/dL (<200) 04/26/19 05:11 HDL Cholesterol 69 mg/dL (40-60) H 04/26/19 05:11 Cholesterol/HDL Ratio 2.30 04/26/19 05:11 Home Medications: Acetaminophen [Tylenol] 2 tab PO Q4HP PRN 04/26/19 Albuterol Sulfate [Albuterol Sulfate Hfa] 8.5 gm IH BEDTIME 04/26/19 Amantadine HCl [Amantadine] 2 tab PO EVERY 7TH DAY 04/26/19 Aspirin Chewable [Aspirin Chewable*] 81 mg PO DAILY 04/26/19 Clonidine HCl [Clonidine HCl ER] 0.1 mg PO BID 04/26/19 Docusate Sodium 100 mg PO BID 04/26/19 Famotidine/Ca Carb/Mag Hydrox [Tums Dual Action Tablet Chew] 2 tab PO TID Fluticasone Furoate [Arnuity Ellipta] 200 mcg IH DAILY 04/26/19 Isosorbide Mononitrate [Isosorbide Mononitrate ER] 30 mg PO BID 04/26/19 Melatonin/Pyridoxine HCl (B6) [Melatonin 3 mg Tablet] 1 each PO BEDTIME Polyethylene Glycol 3350 [Miralax] 17 gm PO BIDP PRN 04/26/19 Sennosides/Docusate Sodium [Docuzen Tablet] 1 each PO BID 04/26/19 Sevelamer Carbonate 800 mg PO TID 04/26/19 Patient Discharge Instructions: OK TO DC IV AND DC HOME. FOLLOW-UP WITH PRIMARY CARE PROVIDER IN 1-2 WEEKS. FOLLOW-UP WITH CARDIOLOGY IN 1-2 WEEKS. FOLLOW-UP WITH NEPHROLOGY IN 1-2 WEEKS. RETURN TO THE ER IF SYMPTOMS WORSEN. CALL DR. HUNTER AT [phone] IF ANY QUESTIONS REGARDING HOSPITAL STAY. PLEASE CALL THE FLOOR AT [phone] IF ANY MEDICATION OR NURSING QUESTIONS. Diet: Renal Activity: Fall precautions Time spent managing pt's care (in minutes): 25
--- NOTE | 2019-04-26 10:14 | RAD REPORT ---
EXAM DESCRIPTION: NM - Rest Stress Cardiac Imaging - 04/26/2019 10:01 am CLINICAL HISTORY: CHEST PAIN Chest pain. COMPARISON: No comparisons TECHNIQUE: The patient was administered approximately 10mCi of Tc 99m Sestamibi prior to resting SPE CT imaging of the heart. The patient was then administered approximately 30 mCi of Tc 99m Sestamibi f ollowing exercise or pharmacologic stress. Multiplanar SPECT images were reviewed. FINDINGS: No stress induced ischemic defect is seen to suggest stress induced ischemia. No fixed def ect is seen to suggest hibernating myocardium or scarred myocardium. The end diastolic volume is 96 ml, the end systolic volume is 37 ml, and the ejection fraction is 62 %. IMPRESSION: No stress induced ischemia.
[2019-04-26 13:05] VITALS: BP 162/74; TEMP 97
--- NOTE | 2019-04-26 14:11 | ECHO ---
HEIGHT: 5 ft 0 in WEIGHT: 151 lb 0 oz DATE OF STUDY: 04/26/[address]: Roxanna Felipe MD 2-DIMENSIONAL: YES M.MODE: YES DOPPLER: YES COLOR FLOW: YES TDS: NO PORTABLE: NO DEFINITY: NO BUBBLE STUDY: NO DIAGNOSIS: CHEST PAIN CARDIAC HISTORY: CATHERIZATION: NO SURGERY: YES PROSTHETIC VALVE: NO PACEMAKER: NO MEASUREMENTS (cm) DIASTOLIC (NORMALS) SYSTOLIC (NORMALS) IVSd 1.1 (0.6-1.2) LA Diam 3.4 (1.9-4.0) LVEF 75% LVIDd 4.5 (3.5-5.7) LVIDs 2.5 (2.0-3.5) %FS 43% LVPWd 1.2 (0.6-1.2) Ao Diam 2.5 (2.0-3.7) 2 DIMENSIONAL ASSESSMENT: RIGHT ATRIUM: NORMAL LEFT ATRIUM: NORMAL RIGHT VENTRICLE: NORMAL LEFT VENTRICLE: NORMAL TRICUSPID VALVE: NORMAL MITRAL VALVE: NORMAL PULMONIC VALVE: NORMAL AORTIC VALVE: NORMAL PERICARDIAL EFFUSION: NONE AORTIC ROOT: NORMAL LEFT VENTRICULAR WALL MOTION: NORMAL DOPPLER/COLOR FLOW: NORMAL COMMENTS: NORMAL 2D ECHOCARDIOGRAM WITH DOPPLER. NO WALL MOTION ABNORMALITY. NO EFFUSION. TECHNOLOGIST: Hayden GRANADOS
--- NOTE | 2019-04-26 14:17 | TREADPHA ---
DX: CHEST PAIN Date of Study: 04/26/2019 Ht: 5 0 Wt: 151 lb 0 oz Consulting Physician: LUCAS MEDICATIONS: TYLENOL, XANAX, ASPIRIN, LOVENOX, LOPRESSOR HISTORY: 58 YEAR OLD FEMALE WITH COMPLAINTS OF CHEST PAIN. HISTORY OF COPD, CEREBRAL VASCULAR ACCIDENT, HEPATITS C, ESRD, ANEMIA, CARDIAC BYPASS IN 2014, CONGESTIVE HEART FAILURE, NON COMPLIANCE, HYPERTENSION, LEFT UPPER ARTERIAL FISTULA, SMOKES HALF A PACK DAILY, NON DRINKER. PHYSICIAL EXAMINATION: RESTING B.P.: 186/84 RESTING H.R.: 68 RESTING EKG: SINUS RHYTHM, LEFT VENTRICULAR HYPERTROPHY PROTOCOL: LEXISCAN EXERCISE TIME: 3:30 B.P. AT PEAK STRESS: 188/80 IMPRESSION: LEXISCAN INJECTED FOLLOWED BY CARDIOLITE PER PROTOCOL. SEE NUCLEAR MEDICINE REPORT. NO SUPRAVENTRICULAR TACHYCARDIA, VENTRICULAR TACHYCARDIA, PREMATURE ATRIAL COMPLEXES OR PREMATURE VENTRICULAR COMPLEXES NOTED. PATIENT REPORTED NO CHEST PAIN.
--- NOTE | 2019-04-27 03:00 | CON ---
Date of Consultation: 04/26/[address] Morris service 04/25/2019. Reason For Consultation: Chest pain. History Of Present Illness: Ms. Ochoa is a 58-year-old woman, has had a history of coronary artery bypass surgery in 2014. She had end-stage renal disease for which she gets dialysis Monday, , and Monday. She has a history of COPD, congestive heart failure, dementia, hypertension, CVA, a nemia, and history of endocarditis. She came in with mid-epigastric chest pain radiating to the back without any nausea, vomiting, diaphoresis, PND, orthopnea, pedal edema, palpitations, or syncope. H er EKG was nonspecific. Chest x-ray was negative. Creatinine of 5.29. Her troponin was negative. Her BNP was 14,347. Allergies: NONE. Review of Systems: Negative. Social History: Negative. Family History: Negative. Medications At Home: Include Imdur, clonidine, aspirin, and multiple inhalers. Physical Examination: Vital Signs: Stable, afebrile. No acute distress. HEENT: Negative. Neck: Supple. No bruit. Chest: Clear. Cardiac: Revealed a regular rhythm and rate. No murmurs, gallops, or rubs. Abdomen: Benign. Extremities: No clubbing, cyanosis, or edema. Skin: Dry and intact. Pulses were present distally bilaterally. Neurologic: She was nonfocal. Diagnostic Data: As stated earlier. Impression And Plan: 1.Atypical chest pain radiating to the back, most likely gastroesophageal reflux disease in nature. EKG showed old inferior myocardial infarction and nonspecific changes. Patient has a history of cor onary artery disease, status post coronary artery bypass graft in 2014. Troponin is negative. BNP e levated secondary to renal disease. I agree with the echocardiogram and Lexiscan that have been orde red already by Dr. Morris. 2.Dementia. 3.End-stage renal disease, on dialysis. 4.Chronic obstructive pulmonary disease. 5.History of congestive heart failure, chronic, diastolic. 6.Hypertension. 7.History of cerebrovascular accident. 8.History of endocarditis. 9.Anemia. Approximately 55 minutes was spent in the care of Ms. Ochoa, including examining the patient, review ing the patient, reviewing the chart, discussing the case with her and with Dr. Morris. Continue to follow her. NB/ROBBIE Voice ID: [id number] Report ID: [id number]
--- OUTSIDE RECORDS SUMMARY | 2019-05-12 10:36 | XMS REPORT ---
:1960 Author Organization e[employer] Care Team Providers Name Role Phone JovelPatrick Provider Role Unavailable Allergies, Adverse Reactions, Alerts Substance Reaction Event Type N.K.D.A. Info Not Available Non Drug Allergy Problems Problem Type Condition Code Onset Dates Condition Status Problem Coronary artery disease involving I25.10 Active [place] coronary artery of [place] heart, angina presence unspecified Problem History of [...] Assessment Coronary artery disease involving I25.10 Active [place] coronary artery of [place] heart, angina presence unspecified Assessment End stage renal disease N18.6 Active Problem Insomnia, unspecified type G47.00 Active Medications Medication Code Code Instructions Start End Status Dosage System Date Date Carvedilol [facility] 47534078373 12.5 MG Orally Active as directed BID Clonidine HCl [facility] 02020062297 0.2 MG Orally Active 1 tablet Twice a day Isosorbide [facility] 48173105234 30 MG Orally Active 1 tablet in Mononitrate Once a day the morning Renvela [facility] 95597770319 800 MG Orally Apr 07, Active 1 tablet Three times a 2019 with meals day Ramipril [facility] 44731617780 5 MG Orally Active 1 capsule Once a day Trazodone HCl [facility] 50944634408 50 MG Orally Active 1 tablet at Once a day bedtime as needed Results No Known Results Summary Purpose [employer]Works Submission
--- OUTSIDE RECORDS SUMMARY | 2019-05-12 10:36 | XMS REPORT ---
:1960 Author Organization [employer] Care Team Providers Name Role Phone Med Patrick Provider Role Unavailable Allergies No Known Allergies Problems Problem Type Condition Code Onset Dates Condition Status Problem Coronary artery disease involving I25.10 Active [place] coronary artery of [place] heart, angina presence unspecified Problem History of [...] Date Status Dosage System Date Ventolin HFA [facility] 97840172725 108 (90 Base) Jul 18, Active 2 puffs as MCG/ACT 2019 needed Inhalation every 6 hrs Results No Known Results Summary Purpose [employer]Works Submission
--- OUTSIDE RECORDS SUMMARY | 2019-05-12 10:37 | XMS REPORT ---
[...] Problem Coronary artery disease involving I25.10 Active [place] coronary artery of [place] heart, angina presence unspecified Assessment Coronary artery disease involving I25.10 Active [place] coronary artery of [place] heart, angina presence unspecified Assessment Vascular dementia with behavior F01.51 Active disturbance Problem Chronic obstructive pulmonary J44.9 Active disease, unspecified COPD type Assessment History of pulmonary embolism Z86.711 Active Assessment HTN, goal below 130/80 I10 Active Problem History of CVA with residual I69.30 Active deficit Medications Medication Code Code Instructions Start End Status Dosage System Date Date Trazodone HCl ND 10545624448 50 MG Orally Active 1 tablet at Once a day bedtime as needed Ventolin HFA [facility] 31575997093 108 (90 Base) Jul 18, Active 2 puffs as MCG/ACT 2019 needed Inhalation every 6 hrs Ramipril ND 43082635983 5 MG Orally Active 1 capsule Once a day Clonidine HCl [facility] 31146232299 0.2 MG Orally Active 1 tablet Twice a day Renvela [facility] 21630703474 800 MG Orally Active 1 tablet Three times a with meals day Breo Ellipta [facility] 29013597237 200-25 MCG/INH OctoberFeb 05, Active 1 puff Inhalation Once 2018 2019 a day Carvedilol [facility] 27287862100 12.5 MG Orally Active as directed BID Isosorbide [facility] 87516014753 30 MG Orally Active 1 tablet in Mononitrate Once a day the morning Results No Known Results Summary Purpose eClinicalWorks Submission
--- OUTSIDE RECORDS SUMMARY | 2019-05-12 10:37 | XMS REPORT ---
:1960 Author Organization [employer] Care Team Providers Name Role Phone Patrick Jovel Provider Role Unavailable Allergies No Known Allergies Problems Problem Type Condition Code Onset Dates Condition Status Problem Dependence on renal dialysis Z99.2 Active Problem Tobacco use disorder F17.200 Active Problem Vascular dementia without F01.50 Active behavioral disturbance Problem Coronary artery disease involving I25.10 Active [place] coronary artery of [place] heart, angina presence unspecified Problem Chronic obstructive [...] Medications Results No Known Results Summary Purpose [employer] Submission
--- OUTSIDE RECORDS SUMMARY | 2019-05-12 10:37 | XMS REPORT ---
:1960 Author Organization e[employer]Works Care Team Providers Name Role Phone Patrick Jovel Provider Role Unavailable Allergies, Adverse Reactions, Alerts Substance Reaction Event Type N.K.D.A. Info Not Available Non Drug Allergy Problems Problem Type Condition Code Onset Dates Condition Status Problem Coronary artery disease involving I25.10 Active [place] coronary artery of [place] heart, angina presence unspecified Problem History of [...] End Date Status Dosage System Date Benzonatate [facility] 98340504586 200 MG Orally Aug 24August Active 1 capsule Three times a 2019 2018 day Renvela ND 45143035665 800 MG Orally Apr 07, Active 1 tablet Three times a 2018 with meals day Ventolin HFA ND 12752121278 108 (90 Base) Jul 18, Active 2 puffs as MCG/ACT 2019 needed Inhalation every 6 hrs Clonidine HCl ND 69560677218 0.2 MG Orally Active 1 tablet Twice a day Ramipril ND 07886288576 5 MG Orally Active 1 capsule Once a day Carvedilol ND 20682040549 12.5 MG Orally Active as directed BID Trazodone HCl ND 76271775658 50 MG Orally Active 1 tablet at Once a day bedtime as needed Isosorbide ND 78475434882 30 MG Orally Active 1 tablet in Mononitrate Once a day the morning Azithromycin ND 42611773981 250 MG Orally Aug 24, Aug 29, Active 2 tablets Once a day 2018 2018 on the first day, then 1 tablet daily for 4 days Results Name Result Date Reference Range Unit Abnormality Flag STREP A RAPID ----Result NEGATIVE [id number] Summary Purpose [employer]ClinicalWorks Submission
== END 2019-04-26 14:34 | disposition home or self-care (01) ==
LOC: ER 20:41 → ERHOLD 23:50 → 2ND 04-26 00:38
PROVIDERS: ADMIT Hospitalist; ATTEND Family Medicine
DX: R07.89 Other chest pain (principal); I13.2 Hypertensive heart and chronic kidney disease with heart failure and with stage 5 chronic kidney disease, or end stage renal disease; N18.6 End stage renal disease; J44.9 Chronic obstructive pulmonary disease, unspecified; D63.8 Anemia in other chronic diseases classified elsewhere; F14.10 Cocaine abuse, uncomplicated; F03.90 Unspecified dementia, unspecified severity, without behavioral disturbance, psychotic disturbance, mood disturbance, and anxiety; I50.32 Chronic diastolic (congestive) heart failure; F17.200 Nicotine dependence, unspecified, uncomplicated; Z99.2 Dependence on renal dialysis
CPT/HCPCS: 93005; 93017; 93306; 85025 ×2; 80048 ×2; 36415; 83735; 85610; 80061; 80076; 84484 ×3; 83880; 71045; 78452; 96375; 96374; 99285; C9113; J1650 ×2; J2785; A9500; G0378 ×2; J2405

== ENCOUNTER 2020-03-19 19:19 | Observation (INO) | payer OTHER ==
--- OUTSIDE RECORDS SUMMARY | 2020-03-19 19:21 | XMS REPORT | Clinical Summary ---
:1960 Author Organization [facility] Address [address] [place] [address] Care Team Providers Name Role Phone Jacob Burrows Unavailable Maru Louie MD Primary Care Provider Allergies No [...] 02/06/2016 Hypertension 02/06/2016 Catheter-related bloodstream infection (CRBSI) 016 Infective endocarditis 02/06/2016 Anemia of chronic disease 02/06/2016 Depression 02/06/2016 Bacteremia 01/16/2016 Family History Medical History Relation Name Comments Heart disease Mother Relation Name Status Comments Mother Social History Tobacco Use Types Packs/Day Years Used Date Former Smoker 1 20 Quit: 11/25/19 16 Smokeless Tobacco: Former User Tobacco Cessation: Ready to Quit: Yes Alcohol Use Drinks/Week oz/Week Comments No Sex Assigned at Date Recorded Not on file Job Start Date Occupation Industry Not on file Not on file Not on file Travel History Travel Start Travel End No recent travel history available. Last Filed Vital Signs Not on file Plan of Treatment Not on file Implants Implanted Type Area Former Hand Device Shelf Model / Identifier Expiration Serial / Lot Date Grft Hemshld Dbl Jarrod 2.0x6.0in [id number] - [id number] Graft/Pat GETINGE 01/30/2019 [id number] / Implanted: Qty: 1 on 01/25/2016 by Sherif Bañuelos MD c h IND:MAFLOYD:CV / [id number] Results Not on fileafter 03/19/2019 Insurance Payer Benefit Plan / Group Subscriber ID Type Phone A ddress [employer] [facility] [employer] [place] xxxxxxxxx [facility] MEDICAID [place] xxxxxxxxx Medicaid Guarantor Name Account Type Relation to Date of Phone Billing Patient Address Michelle Ochoa Personal/Family Self 1960 [phone] [id number] [place] [address] Advance Directives For more information, please contact:[address] [phone] Code Status Date Activated Date Inactivated Comments Full Code 01/23/2016 1:38 PM 02/06/2016 8:06 PM This code status was determined by: Patient Full Code 01/18/2016 10:03 AM 01/18/2016 10:53 AM This code status was determined by: Patient Full Code 01/16/2016 3:39 AM 01/18/2016 10:03 AM This code status was determined by: Patient
--- OUTSIDE RECORDS SUMMARY | 2020-03-19 19:23 | XMS REPORT | Continuity of Care Document ---
:1960 Author Organization [facility] Care Team Providers Name Role Phone [facility] Unavailable Un available Problems Problem Status Onset Classification Date Comments Sourc e Date Reported Hypertensive heart 07/12/19 01/17/2019 [facility] and chronic kidney 19 edical disease with heart C enter failure and with stage 5 chronic kidney disease, or end stage renal disease KIDNEY FAILURE Active 06/24/20 Tucker forrester [address] [place] [address] ISCHEMIC STROKE Active 01/09/[address] NUMBNESS Active 01/09/[address] Methicillin Active 06/11/20 Problem 01/17/2019 06/11/09 Nares- MRSA by PCR [facility] resistant 09 Problem added by Dis cern Expert. Medical Staphylococcus Terri nava, aureus (organism) [facility] Cerebral 01/13/2017 infarction, [facility] End stage renal 01/17/2019 [facility] Center Chronic diastolic 01/17/2019 [facility] Porsche (congestive) heart edical failure Center Acidosis 01/17/2019 [facility] Unspecified 01/17/2019 Madelaine king protein-calorie Medi shreya malnutrition Center Cocaine use, 01/17/2019 [place] as unspecified, Medical uncomplicated Center Patient's 01/17/2019 [facility] noncompliance with edical other medical Center treatment and regimen Nicotine 01/17/2019 [facility] dependence, Medical cigarettes, Center uncomplicated Bipolar disorder, 01/17/2019 [facility] unspecified Medical Center Chronic 01/17/2019 [facility] obstructive Medical pulmonary disease, C enter unspecified Chronic viral 01/17/2019 Tucker forrester hepatitis C [facility] Hyperkalemia 01/17/2019 [facility] as Medical Center Hypertensive 01/17/2019 [place] as urgency Medical Center Anemia in chronic 01/17/2019 [facility] kidney disease Medic al Center Patient's 01/17/2019 [facility] noncompliance with edical renal dialysis Terri nava Vascular dementia 01/17/2019 [facility] without behavioral edical disturbance Center Dementia in other 01/17/2019 [facility] diseases Medical classified Center elsewhere without behavioral disturbance Hepatic failure, 01/17/2019 [facility] unspecified Medical without coma Center 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 Bipolar disorder Resolved Problem 01/17/2019 [facility] (disorder) Medical [place] Chronic kidney Resolved Problem 01/17/2019 [place] disease (disorder) M edical Center,[facility] Chronic Resolved Problem 01/17/2019 [facility] obstructive lung Med ical disease (disorder) C enter,[facility] Cerebrovascular Resolved Problem 01/17/2019 [facility] accident Medical (disorder) Center,[facility] Dialysis finding Resolved Problem 01/17/2019 started [facility] (finding) approx Medical 2014 Center,[facility] Disease of Resolved Problem 01/17/2019 [facility] gallbladder Medical (disorder) Center,[facility] Acute myocardial Resolved Problem 01/17/2019 [facility] infarction Medical (disorder) Center,[facility] Viral hepatitis C Resolved Problem 01/17/2019 [facility] (disorder) Medical [place] Hypertensive Resolved Problem 01/17/2019 [place] disorder, systemic edical arterial Center, (disorder) [facility] Simple obesity Active Problem 01/17/2019 [facility] [place] (disorder) Medical [place] Smoker (finding) Resolved Problem 01/17/2019 [facility] CEREBRAL Active INFARCTION, [facility] UNSPECIFIED [facility] ILLNESS, Active UNSPECIFIED [facility] Medications Medication Details Route Status Patient Ordering Order Source Instructions Provider Date Docusate Sodium 50 mg = 1 cap, Active H [place] 50 MG Oral PO, BID, PRN 2018 Medical Capsule Constipation, Center Take 1-2 tabs daily to maintain soft formed stools., # 180 cap, 0 Refill(s) POLYETHYLENE 17 gm = 1 pkt, Active 06/29/ [place] GLYCOL 3350 GT, Daily, As 2018 Medica l needed for Center constipation, 0 Refill(s) POLYETHYLENE Notes: Dissolve No Longer 06/25/ M H [place] GLYCOL 3350 in 8 oz of Active 2018 Medical water or juice. Center (Same as: Miralax) Clonidine Notes: (Same No Longer [place] Hydrochloride As: Catapres) Active 2018 Medi shreya 0.1 MG Oral Center Tablet Amlodipine Notes: (Same No Longer [place] as as: Norvasc) Active [address] [place] [address] Insulin regular 60 units) Inactive [place] WASTE: F/P - 2018 Medical Black; E - Center Municipal Trash Bin Stable for 28 days at room temperature Expires in days from D ate Glucagon 1 mg, Route: Inactive [place] IM, Drug form: 2018 Medical PDR/INJ, PRN, Center Dosing Weight 45.085, kg, PRN Blood Glucose Results, Start date: 06/25/18 6:22:00 [employer]ICE [employer] LEADER, Duration: 30 day, Stop date: 07/25/18 6:21:00 [employer]UE[employer]ICE TEAM LEADER Dextrose 50% 12.5 gm, 25 mL, Inactive [place] Syringe Route: IVP, 2017 Medical Drug Form: INJ, [place] Dosing Weight 45.085, kg, PRN, PRN Blood Glucose Results, Start date: 06/25/18 6:22:00 G[employer]ICE TEAM LEADER, Duration: 30 day, Stop date: 07/25/18 6:21:00 GUEST SERVICE TEAM LEADER NIFEdipine 30 Notes: (Same Inactive [place] mg oral tablet, as: Adalat CC, 2017 edical extended Procardia XL) Center release Give on empty stomach. Take 1 hour before or 2 hours after meal; "Avoid grapefruit and grapefruit juice". Do not crush Saline Flush Notes: (Same No Longer [place] 0.9% as: BD Active [address] [place] [address] Posiflush) [place] sennosides, LONGTERM Notes: (Same No Longer H [place] as: Senokot) Active [address] [place] [address] NIFEdipine 30 Notes: (Same Inactive [place] mg oral tablet, as: Adalat CC, 2017 edical extended Procardia XL) Center release Give on empty stomach. Take 1 hour before or 2 hours after meal; "Avoid grapefruit and grapefruit juice". Do not crush Docusate Notes: (Same No Longer [place] as: Colace) Active [address] [place] [address] heparin sodium, Notes: porcine No Longer [place] porcine 2500 heparin Active 2017 [facility] UNT/ML [place] Injectable Solution Cardene 40 mg Notes: Same as: No Longer [place] in NS 200 mL Cardene Active 2017 Medical (Titrate.) IV Concentration: Francisco ter 40 mg (0.2 mg /1 ml ) sevelamer 800 mg = 1 tab, No Longer [place] carbonate 800 PO, 0 Refill(s) Active 2017 Ia dical MG Oral Tablet Center [Renvel] amLODIPine 10 10 mg = 1 tab, Active [place] mg oral tablet PO, Daily, 0 2017 Medi shreya Refill(s) Center Clonidine Notes: (Same Inactive [place] Hydrochloride As: Catapres) 2018 Medi shreya 0.1 MG Oral Center Tablet Saline Flush Notes: (Same No Longer [place] 0.9% as: BD Active 2017 Medical Posiflush) Center Nystatin 100 Notes: (Same No Longer [place] UNT/MG Topical as:Mycostatin, Active 2017 [place] dical Powder Nilstat) For Center external use only. atorvastatin Notes: (Same No Longer As: Lipitor) Active 2016 [facility] aspirin 81 mg 81 mg = 1 tab, Active tablet, enteric PO, Daily, # 30 2017 [facility] coated tab, 0 City Refill(s) atorvastatin 10 10 mg = 1 tab, Active H mg oral tablet PO, Bedtime, # 2017 [place] 30 tab, 0 City Refill(s) heparin Notes: porcine No Longer heparin Active 2016 [facility] gabapentin 100 Notes: (Same No Longer MG Oral Capsule as: Neurontin) Active 2016 [facility] Saline Flush 10 ml, Route: Inactive 0.9% IVP, Drug Form: [address] [place] [address] INJ, Dosing City Weight 76.007, kg, Q12H, Start date: 01/08/17 21:00:00 CDT, Duration: 30 day, Stop date: 02/07/17 9:00:00 CDT Hydroxyzine Notes: (Same No Longer as: Atarax) Active [address] [place] [address] Avoid alcohol. [facility] ARIPiprazole Notes: No Longer Non-Formulary Active [address] [place] [address] Drug. (Same City as: Abilify) Amlodipine Notes: (Same No Longer as: Norvasc) Active 2016 [facility] Sertraline Notes: (Same No Longer as: Zoloft) Active 2016 [facility] Clonidine Notes: (Same No Longer Hydrochloride As: Catapres) Active 2016 [place] rial 0.2 MG Oral [facility] Tablet 200 ACTUAT Notes: SEE RT No Longer Albuterol 0.09 DOCUMENTATION Active 2016 Mem orial MG/ACTUAT (Same as: [facility] Metered Dose Proventil) Inhaler [ProAir HFA] Hydralazine Notes: (Same No Longer as: Apresoline) Active 2016 [facility] Push over 5 [facility] minutes Clonidine 0.1 mg = 0.5 Active Hydrochloride tab, PO, TID, 0 2016 [place] 0.2 MG Oral Refill(s) [facility] Tablet ARIPiprazole 10 10 mg = 1 tab, Active H mg oral tablet PO, Daily, # 30 2016 [facility] tab, 0 [facility] Refill(s) Amlodipine 10 mg, PO, Active Daily, 0 2016 [facility] Refill(s) [facility] sertraline 50 50 mg = 1 tab, Active mg oral tablet PO, Daily, 0 2016 [place] rial Refill(s) [facility] gabapentin 100 300 mg = 3 cap, Active H [place] Oral Capsule PO, Bedtime, 0 2016 [facility] Refill(s) [facility] Hydroxyzine 50 mg, PO, TID, Active 0 Refill(s) 2016 [facility] Enoxaparin Notes: (Same No Longer as: Lovenox) Active 2016 [facility] aspirin 81 mg Notes: Do not No Longer tablet, enteric crush or chew. Active 2016 [facility] coated (Same As: [facility] Ecotrin) Famotidine Notes: (Same No Longer as: Pepcid) Active 2016 [facility] Sodium Chloride 25 mL, Route: No Longer 0.9% IV IVP, Start Active [address] [place] [address] date: 01/08/17 [facility] 16:48:00 CDT, Duration: 30 day, Stop date: 02/07/17 16:47:00 CDT, PRN Line Flush BD Normal Notes: (Same No Longer Saline Flush as: BD Active 2016 [facility] Posiflush) [facility] BD Normal Notes: (Same No Longer Saline Flush as: BD Active 2016 [facility] Posiflush) [facility] Saline Flush 10 ml, Route: Inactive 0.9% IVP, Drug Form: 2016 [facility] INJ, Dosing [facility] Weight 76.007, kg, PRN, PRN Line Flush, Start date: 01/08/17 16:41:00 CDT, Duration: 30 day, Stop date: 02/07/17 16:40:00 CDT Allergies, Adverse Reactions, Alerts Substance Category Reaction Severity Reaction Status Date Comments S ource type Reported No Known Assertion Drug Tucker forrester Medication allergy Medic al Allergies Center Immunizations Immunization Date Site Status Last Comments Source Given Updated pneumococcal Right completed Jim[place] Madelaine king 13-valent vaccine 7 deltoid [facility] tetanus-diphtheri Right completed Katya [facility] a toxoids 9 [facility] Results Order Name Results Value Reference Date Interpretation Comments Rula rce Range CHEM PANEL Magnesium 2.2 1.8 - 2.4 06/30 [facility] CHEM PANEL Phosphorus 4.6 2.5 - 4.5 06/30 [facility]2017 [facility] CHEM PANEL eGFR 8 06/30 Result Comment: The Medical eGFR is Center calculated [...] PANEL ALT 15 0 - 65 06/[address] CHEM PANEL AST 14 0 - 37 06/[address] CHEM PANEL Globulin 3.8 2.7 - 4.2 06/[address] CHEM PANEL A/G Ratio 0.8 0.7 - 1.6 06/[address] CHEM PANEL Albumin Lvl 3.2 3.5 - 5.0 06/30 [facility] CHEM PANEL Total 7.0 6.4 - 8.4 06/30 [facility] Protein [facility] CHEM PANEL B/C Ratio 8 6 - 25 06/[address] CHEM PANEL Bili Total 0.5 0.2 - 1.3 06/[address] CHEM PANEL Alk Phos 130 39 - 136 06/[address] CHEM PANEL Glucose Lvl 88 70 - 99 06/[address] CHEM PANEL BUN 48 7 - 22 06/[address] CHEM PANEL Calcium Lvl 8.0 8.5 - 10.5 06/30 [facility] CHEM PANEL AGAP 13.5 10.0 - 06/30 [place] 20.0 [facility] CHEM PANEL Chloride Lvl 104 95 - 109 06/30 [facility] CHEM PANEL CO2 24 24 - 32 06/[address] CHEM PANEL Creatinine 5.89 0.50 - 06/30 [place] Lvl 1.40 [facility] CHEM PANEL Sodium Lvl 137 135 - 145 06/[address] CHEM PANEL Potassium 4.5 3.5 - 5.1 06/30 [place] Lvl /2017 [facility] HEMATOLOGY MCH 27.7 27.0 - 06/30 [place] 31.0 [facility] HEMATOLOGY Hct 28.3 36.0 - 06/30 [place] 48.0 [facility] HEMATOLOGY MCV 85.6 80.0 - 06/30 [place] 98.0 [facility] HEMATOLOGY MCHC 32.3 32.0 - 06/30 [place] 36.0 [facility] HEMATOLOGY RDW 16.0 11.5 - 06/30 [place] 14.5 /2017 [facility] HEMATOLOGY Platelet 141 133 - 450 06/30 [facility]2017 [facility] HEMATOLOGY MPV 8.5 7.4 - 10.4 06/30 [facility] /[address] [place] [address] HEMATOLOGY WBC 4.4 3.7 - 10.4 06/30 [facility] /2018 [facility] HEMATOLOGY RBC 3.31 4.20 - 06/30 [place] 5.40 [facility] HEMATOLOGY Hgb 9.2 12.0 - 06/30 [place] 16.0 [facility] HEMATOLOGY Monocytes # 0.9 0.0 - 0.8 06/30 [place] /2017 [facility] HEMATOLOGY Anisocyte 1+ None Seen 06/30 [facility] *ABN* /2017 [facility] (06/30/18 5:16 AM) Cente r HEMATOLOGY Eosinophils 0.1 0.0 - 0.5 06/30 [facility] # /2018 [facility] HEMATOLOGY Target Cell Slight 06/[address] HEMATOLOGY Monocytes 20.2 2.0 - 12.0 06/[address] HEMATOLOGY Basophils 0.9 0.0 - 1.0 06/[address] HEMATOLOGY Lymphocytes 32.1 20.0 - 06/30 [place] 40.0 [facility] HEMATOLOGY Eosinophils 1.2 0.0 - 4.0 06/30 [facility] /[address] [place] [address] HEMATOLOGY Neutrophils 2.0 1.5 - 8.1 06/30 [facility] # /2018 [facility] HEMATOLOGY Lymphocytes 1.4 1.0 - 5.5 06/30 [facility] # /[address] [place] [address] HEMATOLOGY Segs 45.6 45.0 - 06/30 [facility] 75.0 [facility] HEMATOLOGY Plt Morph Normal 06/30 [facility] (06/30/18 5:16 AM) /2017 [facility] ANEMIA Iron 61 30 - 160 06/29 [facility] STUDY /2018 [facility] ANEMIA TIBC 223 228 - 428 06/29 [facility] /[address] [place] [address] ANEMIA UIBC 162 110 - 370 06/29 [facility] /2017 [facility] ANEMIA % Satur Fe 27 12 - 57 06/29 [facility] /[address] [place] [address] ANEMIA Ferritin Lvl 428 5 - 204 06/[address] CHEM PANEL Phosphorus 3.6 2.5 - 4.5 06/[address] CHEM PANEL Magnesium 2.2 1.8 - 2.4 06/29 [facility] /[address] [place] [address] CHEM PANEL Bili Total 0.5 0.2 - 1.3 06/29 [facility] CHEM PANEL Alk Phos 140 39 - 136 06/29 [facility] CHEM PANEL AST 13 0 - 37 06/29 [facility] CHEM PANEL ALT 14 0 - 65 06/29 [facility] CHEM PANEL eGFR 13 06/29 Result Comment: The Medical eGFR is Center calculated [...] Albumin Lvl 3.0 3.5 - 5.0 06/29 [facility] CHEM PANEL Total 7.1 6.4 - 8.4 06/29 [facility] CHEM PANEL Chloride Lvl 104 95 - 109 06/29 [facility] CHEM PANEL Calcium Lvl 7.6 8.5 - 10.5 06/29 [facility] CHEM PANEL CO2 25 24 - 32 06/29 [facility]2017 [facility] CHEM PANEL Potassium 4.2 3.5 - 5.1 06/29 [facility] CHEM PANEL Sodium Lvl 138 135 - 145 06/29 [facility]2017 [facility] CHEM PANEL Glucose Lvl 95 70 - 99 06/29 [facility]2017 [facility] CHEM PANEL BUN 30 7 - 22 06/29 [facility]2017 [facility] CHEM PANEL Creatinine 4.15 0.50 - 06/29 [facility] 1[facility] CHEM PANEL AGAP 13.2 10.0 - 06/29 [place] 20.0 [facility] CHEM PANEL A/G Ratio 0.7 0.7 - 1.6 06/[address] CHEM PANEL Globulin 4.1 2.7 - 4.2 06/[address] CHEM PANEL B/C Ratio 7 6 - 25 06/[address] HEMATOLOGY MPV 8.2 7.4 - 10.4 06/[address] HEMATOLOGY RDW 16.5 11.5 - 06/29 [place] 14.5 [facility] HEMATOLOGY Platelet 131 133 - 450 06/[address] HEMATOLOGY MCV 85.3 80.0 - 06/29 [facility] 98.0 [facility] HEMATOLOGY MCH 27.9 27.0 - 06/29 [place] 31.0 [facility] HEMATOLOGY MCHC 32.7 32.0 - 06/29 [facility] 36.0 /2017 [facility] HEMATOLOGY RBC 3.40 4.20 - 06/29 [place] 5.40 /2017 [facility] HEMATOLOGY Hgb 9.5 12.0 - 06/29 [place] 16.0 [facility] HEMATOLOGY WBC 5.3 3.7 - 10.4 06/[address] HEMATOLOGY Hct 29.0 36.0 - 06/29 [place] 48.0 [facility] HEMATOLOGY Retic Auto 1.6 0.5 - 1.5 06/29 [facility]2017 [facility] HEMATOLOGY Monocytes 20.2 2.0 - 12.0 06/[address] HEMATOLOGY Segs 50.7 45.0 - 06/29 [place] 75.0 [facility] HEMATOLOGY Lymphocytes 27.3 20.0 - 06/29 [place] 40.0 [facility] HEMATOLOGY Monocytes # 1.1 0.0 - 0.8 06/29 [place] /2018 [facility] HEMATOLOGY Eosinophils 0.1 0.0 - 0.5 06/29 [place] # /2017 [facility] HEMATOLOGY Basophils 0.7 0.0 - 1.0 06/[address] HEMATOLOGY Neutrophils 2.7 1.5 - 8.1 06/29 [place] # /2018 [facility] HEMATOLOGY Eosinophils 1.1 0.0 - 4.0 06/29 [place] /2018 [facility] HEMATOLOGY Lymphocytes 1.5 1.0 - 5.5 06/29 [place] [facility] CHEM PANEL Magnesium 2.2 1.8 - 2.4 06/28 [facility] CHEM PANEL Phosphorus 4.1 2.5 - 4.5 06/28 [facility]2017 [facility] CHEM PANEL eGFR 6 06/28 Result Comment: The Medical eGFR is Center calculated [...] PANEL CO2 25 24 - 32 06/28 [facility] CHEM PANEL Glucose Lvl 94 70 - 99 06/28 [facility]2017 [facility] CHEM PANEL BUN 49 7 - 22 06/[address] CHEM PANEL Potassium 4.3 3.5 - 5.1 06/28 [facility] CHEM PANEL Creatinine 7.38 0.50 - 06/28 [facility] Lvl 1.40 [facility] CHEM PANEL Sodium Lvl 136 135 - 145 06/28 [facility]2017 [facility] CHEM PANEL Chloride Lvl 103 95 - 109 06/28 [place] [facility] CHEM PANEL Albumin Lvl 3.1 3.5 - 5.0 06/28 [place] [facility] CHEM PANEL Calcium Lvl 7.6 8.5 - 10.5 06/28 [place] [facility] CHEM PANEL Total 6.9 6.4 - 8.4 06/28 [facility] CHEM PANEL AST 13 0 - 37 06/[address] CHEM PANEL Alk Phos 125 39 - 136 06/[address] CHEM PANEL ALT 11 0 - 65 06/28 [facility] CHEM PANEL Bili Total 0.5 0.2 - 1.3 06/28 [facility] CHEM PANEL Globulin 3.8 2.7 - 4.2 06/28 2017 [facility] CHEM PANEL B/C Ratio 7 6 - 25 06/28 2017 [facility] CHEM PANEL A/G Ratio 0.8 0.7 - 1.6 06/28 2017 [facility] CHEM PANEL AGAP 12.3 10.0 - 06/28 [place] 20.0 [facility] HEMATOLOGY MPV 8.5 7.4 - 10.4 06/28 [facility] HEMATOLOGY Platelet 145 133 - 450 06/28 [facility] HEMATOLOGY RDW 16.0 11.5 - 06/28 [place] 14.5 [facility] HEMATOLOGY MCHC 31.5 32.0 - 06/28 [place] 36.0 [facility] HEMATOLOGY MCH 26.9 27.0 - 06/28 [place] 31.0 [facility] HEMATOLOGY MCV 85.6 80.0 - 06/28 [place] 98.0 [facility] HEMATOLOGY Hct 29.4 36.0 - 06/28 [place] 48.0 [facility] HEMATOLOGY RBC 3.43 4.20 - 06/28 [place] 5.40 [facility] HEMATOLOGY WBC 5.1 3.7 - 10.4 06/28 /2017 [facility] HEMATOLOGY Hgb 9.2 12.0 - 06/28 [place] 16.0 2018 [facility] HEMATOLOGY Basophils # 0.1 0.0 - 0.2 06/28 [place] /2017 [facility] HEMATOLOGY Eosinophils 0.1 0.0 - 0.5 06/28 [place] # /2017 [facility] HEMATOLOGY Monocytes # 0.9 0.0 - 0.8 06/28 [place] /2018 [facility] HEMATOLOGY Monocytes 17.7 2.0 - 12.0 06/28 [place] [facility] HEMATOLOGY Segs 52.2 45.0 - 06/28 [place] 75.0 [facility] HEMATOLOGY Lymphocytes 27.8 20.0 - 06/28 [place] 40.0 /2018 [facility] HEMATOLOGY Lymphocytes 1.4 1.0 - 5.5 06/28 [place] # /2017 [facility] HEMATOLOGY Neutrophils 2.7 1.5 - 8.1 06/28 [place] # /2017 [facility] HEMATOLOGY Basophils 1.0 0.0 - 1.0 06/28 [facility] HEMATOLOGY Eosinophils 1.3 0.0 - 4.0 06/28 [facility] /2017 [facility] AMINO ACID MMA Qnt 589 0 - 378 06/27 [facility] /[address] [place] [address] AMINO ACID Homocyst Tot 40.6 0.0 - 15.0 06/27 [place] [facility] ANEMIA Vitamin B12 521 254 - 1320 06/27 [facility] STUDY Lvl [facility] CHEM PANEL Ammonia 29.0 <=45.0 06/27 [facility] uMol/L [facility] IMMUNOLOGY RPR Non-Reactive Non 06/27 [facility] (06/27/18 1:12 PM) [facility] MOLECULAR HCV RNA <1.2 06/26 [facility] DIAGNOSTIC Log10 [facility] MOLECULAR HCV RNA Not Detected 06/26 [facility] DIAGNOSTIC [facility] (06/26/18 2:58 PM) [facility] URINE AND UA <=1.0 0.1 - 1.0 06/26 [facility] STOOL Urobilinogen mg/dL [facility] URINE AND UA WBC 2 0 - 5 06/26 [facility] [address] [place] [address] URINE AND UA Leuk Est Negative Negative 06/26 [facility] (06/26/18 8:03 AM) [facility] URINE AND UA Nitrite Negative Negative 06/26 [facility] (06/26/18 8:03 AM) [facility] URINE AND UA Sq Epi None Seen 06/26 [facility] URINE AND UA RBC <1 0 - 2 06/26 [facility] [address] [place] [address] URINE AND UA Glucose Negative Negative 06/26 [facility] STOOL mg/dL mg/dL [facility] URINE AND UA Protein 50 mg/dL Negative 06/26 [facility] STOOL mg/dL [facility] URINE AND UA Blood Negative Negative 06/26 [facility] (06/26/18 8:03 AM) [facility] URINE AND UA pH 7.5 5.0 - 8.0 06/26 [facility] /[address] [place] [address] URINE AND UA Bili Negative Negative 06/26 [facility] STOOL *NA* /2017 [facility] (06/26/18 8:03 AM) Cente r URINE AND UA Ketones Negative Negative 06/26 [facility] STOOL mg/dL mg/dL [facility] URINE AND UA Color Light Yellow Yellow 06/26 [facility] STOOL *NA* Medical (06/26/18 8:03 AM) [place] URINE AND UA Spec Grav 1.004 <=1.030 06/26 [facility] STOOL /2017 [facility] URINE AND UA Turbidity Clear Clear 06/26 [facility] STOOL (06/26/18 8:03 AM) [facility] IMMUNOLOGY Hep Bs Ab 66.7 <=7.4 06/24 [place] mIU/mL [facility] IMMUNOLOGY Hep C Ab Positive 06/24 [place] *ABN* Medical (06/24/18 1:39 PM) [place] IMMUNOLOGY Hep B Core Negative Negative 06/24 [place] Ab *NA* Medical (06/24/18 1:39 PM) [place] IMMUNOLOGY Hep B Core Negative Negative 06/24 [facility] IgM *NA* Medical (06/24/18 1:39 PM) [place] IMMUNOLOGY Hep Bs Ag Negative Negative 06/24 [place] *NA* /2017 Medical (06/24/18 1:39 PM) [place] BACTERIAL - MRSA by PCR Negative [facility]06[facility]24[facility]18 1:05 PM[facility] CARDIAC Troponin-I 0.05 0.00 - 06/24 [facility] ENZYMES 0.40 /2017 [facility] CARDIAC BNP 1953 <=100 06/24 [facility] ENZYMES pg/mL [facility] CARDIAC proBNP 65482 0 - 125 06/24 [facility] ENZYMES /2017 [facility] CHEM PANEL Bili Direct 0.1 0.0 - 0.3 06[place]2017 [facility] CHEM PANEL Bili 0.8 0.0 - 1.0 06/24 [place] Indirect /2017 [facility] HEMATOLOGY PTT 36.4 22.9 - 06/24 [place] 35.8 [facility] HEMATOLOGY PT 15.4 12.0 - 06/24 [place] 14.7 [facility] HEMATOLOGY INR 1.24 0.85 - 06/24 [place] 1.17 [facility] HEMATOLOGY Basophils # 0.1 0.0 - 0.2 06[place] [facility] IMMUNOLOGY HIV Ag/Ab Negative Negative 06/24 [facility] 4th Gen *NA* /2017 Medical (06/24/18 1:05 PM) Cente r MOLECULAR Influenza A Negative Negative 06/24 [facility] DIAGNOSTIC PCR (06/24/18 1:05 PM) /2017 [facility] MOLECULAR Source Fl[employer]ed [employer] Swab 06/24 [place] DIAGNOSTIC Respiratory (06/24/18 1:05 PM) Medical [facility] PCR Center MOLECULAR Influenza B Negative Negative 06/24 [facility] DIAGNOSTIC PCR (06/24/18 1:05 PM) [facility] RSV PCR Negative Negative 06/24 [facility] DIAGNOSTIC (06/24/18 1:05 PM) /[facility] PARATHYROID Ca Ion WB 0.92 1.05 - 06/24 [place] PROFILE . [facility] PARATHYROID Ca Norm WB 0.86 1.05 - 06/24 Result [facility] 07.27 Comment: [facility] Center RESULT CALLED TO SHERRI BELLA AT 06/24/2018 15:42 BY SXP. READ BACK OK. SPECIAL Hgb A1C <3.5 % <=5.6 % 06/24 [facility] CHEMISTRY /2017 [facility] CHEM PANEL eGFR 14 01/10 Result Comment: The [facility] eGFR is City calculated using the CKD-EPI [...] CHEM PANEL Creatinine 3.84 0.50 - 01/10 Lvl 1.40 [facility] CHEM PANEL Calcium Lvl 8.3 8.5 - 10.5 01/10 [facility] CHEM PANEL AGAP 10.1 10.0 - 01/10 20.0 [facility] CHEM PANEL CO2 32 24 - 32 01/10 [facility] CHEM PANEL Chloride Lvl 102 95 - 109 01/10 [facility] CHEM PANEL Potassium 4.1 3.5 - 5.1 01/10 MH Lvl /2016 [facility] CHEM PANEL Sodium Lvl 140 135 - 145 01/10 [facility] CHEM PANEL BUN 9 7 - 22 01/10 [facility] CHEM PANEL Glucose Lvl 91 70 - 99 01/10 [facility] CHEM PANEL Phosphorus 2.6 2.5 - 4.5 01/10 [facility] IMMUNOLOGY Hep Bs Ag Negative Negative 01/09 *NA* /2016 [facility] (01/09/17 6:45 PM) [facility] DRUG SCREEN UDS Note See Note 01/08 *NA* /2016 [facility] (01/08/17 6:00 PM) [facility] DRUG SCREEN U Benzodia Negative Negative 01/08 Scr *NA* /2016 [facility] (01/08/17 6:00 PM) [facility] DRUG SCREEN U Pinky Scr Negative Negative 01/08 *NA* /2016 [facility] (01/08/17 6:00 PM) [facility] DRUG SCREEN U Cocaine Negative Negative 01/08 Scr *NA* /2016 [facility] (01/08/17 6:00 PM) [facility] DRUG SCREEN U Cannab Scr Negative Negative 01/08 *NA* /2016 [facility] (01/08/17 6:00 PM) [facility] DRUG SCREEN U Phencyc Negative Negative 01/08 Scr *NA* /2016 [facility] (01/08/17 6:00 PM) [facility] DRUG SCREEN U Opiate Scr Negative Negative 01/08 *NA* [facility] (01/08/17 6:00 PM) [facility] DRUG SCREEN U Amph Scr Negative Negative 01/08 *NA* /2016 [facility] (01/08/17 6:00 PM) [facility] URINE AND UA <=1.0 0.1 - 1.0 01/08 STOOL Urobilinogen mg/dL /2016 [facility] URINE AND UA Ketones Negative 01/08 STOOL /2016 [facility] URINE AND UA Color Straw 01/08 STOOL /2016 [facility] URINE AND UA pH >=9.0 5.0 - 8.0 01/08 STOOL *ABN* /2016 [facility] (01/08/17 6:00 PM) [facility] URINE AND UA RBC <1 0 - 2 01/08 STOOL /2016 [facility] URINE AND UA WBC 1 0 - 5 01/08 STOOL /2016 [facility] URINE AND UA Glucose Negative Negative 01/08 STOOL mg/dL mg/dL /2016 [facility] URINE AND UA Spec Grav 1.004 <=1.030 01/08 STOOL /2016 [facility] URINE AND UA Nitrite Negative Negative 01/08 STOOL (01/08/17 6:00 PM) /2016 [facility] URINE AND UA Protein 30 mg/dL Negative 01/08 STOOL mg/dL /2016 [facility] URINE AND UA Turbidity Clear Clear 01/08 STOOL (01/08/17 6:00 PM) /2016 [facility] URINE AND UA Bili Negative Negative 01/08 STOOL *NA* /2016 [facility] (01/08/17 6:00 PM) [facility] URINE AND UA Blood Negative Negative 01/08 STOOL (01/08/17 6:00 PM) /2016 [facility] URINE AND UA Mucus Few /LPF None Seen 01/08 STOOL /LPF /2016 [facility] URINE AND UA Sq Epi Few /LPF Few /LPF 01/08 STOOL /2016 [facility] URINE AND UA Leuk Est Negative Negative 01/08 STOOL (01/08/17 6:00 PM)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
--- OUTSIDE RECORDS SUMMARY | 2020-03-19 19:24 | XMS REPORT | Continuity of Care Document ---
:1960 Author Organization [facility] t Address [address] [place] [address] Care Team Providers Name Role Phone Maru Louie MD Primary Care Physician Feng Simental Attending Clinician Otoniel Muir Attending Clinician Feng Simental Admitting Clinician Otoniel Muir Admitting Clinician Problems Condition Condition Condition Status Onset Resolution Last Treating Co mments Source Name Details Category Date Date Treatment Clinician Date KIDNEY Diagnosis Active 2017-072018-07-11 Mem oria FAILURE 08-25 22:07:00 l KIDNEY 00:00: [place] FAILURE 00 Active 06/24/2018 [facility] ISCHEMIC Diagnosis Active 2017-01-08 [facility] STROKE 01-08 16:23:00 l ISCHEMIC 00:00: Josesito n STROKE 00 Active 01/08/2017 [facility] NUMBNESS Diagnosis [facility] 21[facility]50:00 l NUMBNESS 00:00: Josesito n 00 Active 01/08/2017 [facility] Atrial Atrial Disease Active [facility]oma [facility] ESRD on ESRD on Disease Active [facility] dialysis dialysis 02-05 [facility] Hyponatrem Hyponatrem Disease Active [facility] ia ia 02-05 [facility] Metabolic Metabolic Disease Active [facility] bone bone 8-06 [facility] - disease disease 00:00: Medical 00 Center Catheter-r Catheter-r Disease Active [facility] elated elated 8 [facility] - bloodstrea bloodstrea 00:00: Me dical m m 00 Center infection infection (CRBSI) (CRBSI) Infective Infective Disease Active [facility] endocardit endocardit 8- Irma kes - is is 00:00: Medical 00 Center Anemia of Anemia of Disease Active [facility] chronic chronic 8 [facility] - disease disease 00:[facility] 00 Center Depression Depression Disease Active [facility] - 00:00: Medical 00 Issue Bacteremia Bacteremia Disease Active [facility] 7[facility]16 [facility] 00 [facility] Methicilli Problem Active 2008-072019-01-17 M homeroria n 2-10 13:57:27 l resistant 00:00: [place] Staphyloco Methicilli 00 ccus n aureus resistant (organism) Staphyloco ccus aureus (organism) Active 06/11/2009 Problem 01/17/2019 06/11/09 Nares- MRSA by PCRProblem added by Discern Expert. [facility] Coronary Coronary Problem Active [facility] artery artery [facility] - disease disease Memoria involving involving l [place] Outpati coronary coronary ent artery of artery of Clin ics [place] heart, heart, angina angina presence presence unspecifie unspecifie d d History of History of Problem Active [facility] CVA with CVA with [facility] - residual residual Memori a deficit deficit l Outpati ent Clinics Chronic Chronic Problem Active [facility] obstructiv obstructiv Irma kes - e e Memoria pulmonary pulmonary l disease, disease, Outpat i unspecifie unspecifie en t d COPD d COPD Clinics type type History of History of Problem Active [facility] CVA CVA [facility] - (cerebrova (cerebrova Me moria scular scular l accident) accident) Outp ati ent Clinics Depression Depression Problem Active [facility] with with [facility] - anxiety anxiety Memoria l Outpati ent Clinics Tobacco Tobacco Problem Active [facility] use use [facility] - disorder disorder Memori a l Outpati ent Clinics History of History of Problem Active [facility] pulmonary pulmonary Luke s - embolism embolism Memori a l Outpati ent Clinics Vascular Vascular Problem Active [facility] dementia dementia [facility] - without without Memoria behavioral behavioral l disturbanc disturbanc Ou tpati e e ent Clinics Dependence Dependence Problem Active [facility] on renal on renal [facility] - dialysis dialysis [facility] End stage End stage Problem Active [facility] renal renal [facility] - disease disease [facility] Insomnia, Insomnia, Problem Active [facility] unspecifie unspecifie Irma kes - d type d type [facility] HTN, goal HTN, goal Problem Active [facility] below below [facility] - 130/80 130/80 [facility] Vascular Vascular Problem Active [facility] dementia dementia [facility] - with with Memoria behavior behavior l disturbanc disturbanc Ou tpati e e ent Clinics Cerebral Problem 2017-01-13 Mem oria infarction 02:14:10 l , Cerebral Josesito n unspecifie infarction d , unspecifie d 01/13/2017 [facility] End stage Problem 2019-01-17 Me moria renal 13:57:27 l disease End [place] stage renal disease 01/17/2019 [facility] Chronic Problem 2019-01-17 [place] diastolic 13:57:27 l (congestiv Chronic Her holloway e) heart diastolic failure (congestiv e) heart failure 01/17/2019 [facility] Acidosis Problem 2019-01-17 Mem oria 13:57:27 l Acidosis Josesito n 01/17/2019 [facility] Unspecifie Problem 2019-01-17 M emoria d 13:57:27 l protein-ca J[place] n angi Unspecifie malnutriti d on protein-ca angi malnutriti on 01/17/2019 [facility] Cocaine Problem 2019-01-17 [place] use, 13:57:27 l unspecifie Cocaine Her holloway d, use, uncomplica unspecifie ruben d, uncomplica ruben 01/17/2019 [facility] Patient's Problem 2019-01-17 Me moria noncomplia 13:57:27 l nce with [place] other Patient's medical noncomplia treatment nce with and other regimen medical treatment and regimen 01/17/2019 [facility] Nicotine Problem 2019-01-17 Mem oria dependence 13:57:27 l , Nicotine Josesito n cigarettes dependence , , uncomplica cigarettes ruben , uncomplica ruben 01/17/2019 [facility] Bipolar Problem 2019-01-17 [place] disorder, 13:57:27 l unspecifie Bipolar Her holloway d disorder, unspecifie d 01/17/2019 [facility] Chronic Problem 2019-01-17 [place] obstructiv 13:57:27 l e Chronic [place] pulmonary obstructiv disease, e unspecifie pulmonary d disease, unspecifie d 01/17/2019 [facility] Chronic Problem 2019-01-17 [place] viral 13:57:27 l hepatitis Chronic Herm johann C viral hepatitis C 01/17/2019 [facility] Hyperkalem Problem 2019-01-17 M emoria ia 13:57:27 l [place] Hyperkalem ia 01/17/2019 [facility] Hypertensi Problem 2019-01-17 M emoria ve urgency 13:57:27 l [place] Hypertensi ve urgency 01/17/2019 [facility] Anemia in Problem 2019-01-17 Me moria chronic 13:57:27 l kidney Anemia [place] disease in chronic kidney disease 01/17/2019 [facility] Patient's Problem 2019-01-17 Me moria noncomplia 13:57:27 l nce with [place] renal Patient's dialysis noncomplia nce with renal dialysis 01/17/2019 [facility] Vascular Problem 2019-01-17 Mem oria dementia 13:57:27 l without Vascular Kayce nn behavioral dementia disturbanc without e behavioral disturbanc e 01/17/2019 [facility] Dementia Problem 2019-01-17 Mem oria in other 13:57:27 l diseases Dementia Herm johann classified in other elsewhere diseases without classified behavioral elsewhere disturbanc without e behavioral disturbanc e 01/17/2019 [facility] Hepatic Problem 2019-01-17 [place] failure, 13:57:27 l unspecifie Hepatic Her holloway d without failure, coma unspecifie d without coma 9 [facility] 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-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 13:57:27 l heart [place] disease of Atheroscle [place] rotic coronary heart artery disease of without [place] angina coronary pectoris artery without angina pectoris 01/17/2019 [facility] Bipolar Problem Resolve 2019-01-17 Mem oria disorder d 13:57:27 l (disorder) Bipolar Her holloway disorder (disorder) Resolved Problem 01/17/[address] [facility] Chronic Problem Resolve 2019-01-17 Mem oria kidney d 13:57:27 l disease Chronic Josesito n (disorder) kidney disease (disorder) Resolved Problem 01/17/[address] [facility] Chronic Problem Resolve 2019-01-17 Mem oria obstructiv d 13:57:27 l e lung Chronic [place] disease obstructiv (disorder) e lung disease (disorder) Resolved Problem 01/17/[address] [facility] Cerebrovas Problem Resolve 2019-01-17 Memoria cular d 13:57:27 l accident [place] (disorder) Cerebrovas cular accident (disorder) Resolved Problem 01/17/[address] [facility] Dialysis Problem Resolve 2019-01-17 Me moria finding d 13:57:27 l (finding) Dialysis Her amie finding (finding) Resolved Problem 01/17/2019 started approx [address] [facility] Disease of Problem Resolve 2019-01-17 Memoria gallbladde d 13:57:27 l r Disease [place] (disorder) of gallbladde r (disorder) Resolved Problem 01/17/[address] [facility] Acute Problem Resolve 2019-01-17 [place] myocardial d 13:57:27 l infarction Acute Kayce nn (disorder) myocardial infarction (disorder) Resolved Problem 01/17/[address] [facility] Viral Problem Resolve 2019-01-17 [place] hepatitis d 13:57:27 l C Viral [place] (disorder) hepatitis C (disorder) Resolved Problem 01/17/[address] [facility] Hypertensi Problem Resolve 2019-01-17 Memoria ve d 13:57:27 l disorder, [place] systemic Hypertensi arterial ve (disorder) disorder, systemic arterial (disorder) Resolved Problem 01/17/[address] [facility] Smoker Problem Resolve 2019-01-17 [place] (finding) d 13:57:27 l Smoker [place] (finding) Resolved Problem 01/17/[address] [facility] Simple Problem Active 2019-01-17 Memor ia obesity 13:57:27 l (disorder) Simple Herm johann obesity (disorder) Active Problem 01/17/2019 [facility] CEREBRAL Diagnosis Active 2017-01-08 M emoria INFARCTION 16:23:00 l , CEREBRAL Josesito n UNSPECIFIE INFARCTION D , UNSPECIFIE D Active [facility] ILLNESS, Diagnosis Active 2017-01-17 M emoria UNSPECIFIE 21:50:00 l D ILLNESS, Josesito n UNSPECIFIE D Active [facility] Hypertensi Problem 2018-2019-01-17 2019-01-17 Memoria ve heart 1-10 13:57:27 13:57:27 l and 04:12: [place] chronic Hypertensi 09 kidney ve heart disease and with heart chronic failure kidney and with disease stage 5 with heart chronic failure kidney and with disease, stage 5 or end chronic stage kidney renal disease, disease or end stage renal disease 07/12/2018 01/17/2019 [facility] Allergies, Adverse Reactions, Alerts Allergy Allergy Status Severity Reaction(s) Onset Inactive Treating Comm ents Source Name Type Date Date Clinician No Known No Known Active Memori a Medicati Medicati l on on [place] Leonard Allergherman s s Family History Family Member Diagnosis Comments Start Date Stop Date Source Natural mother Heart disease [facility] Social History Social Habit Start Date Stop Date Quantity Comments Source Sex Assigned At [facility] Cigarettes smoked 2016-02-25 2016-02-25 [facility] - current (pack per 00:00:00 00:00:00 [facility] Center day) - Reported Cigarette 2016-02-25 2016-02-25 [facility] - pack-years 00:00:00 00:00:00 [facility] History of tobacco 2015-11-[address] smoker [facility] - use 00:00:00 [facility] Social History 2013-08-05 2013-08-05 [facility] 08:46:07 08:46:07 Smoking Status Start Date Stop Date Source Former smoker 2016-02-25 00:00:00 2016-02-25 00:00:00 [facility] Medications Ordered Filled Start Stop Current Ordering Indication Dosage Frequency Signature Comments Components Source Medication Medication Date Date Medication? Clinician (SIG) Name Name Michele Bautista 2019- No Patrick 1 puff [facility] Ellipta Ellipta 10-08 08- Jovel [facility] - 00:[facility]: 00:00 [facility]oria 00 :[facility] Ventolin Ventolin Yes Patrick [address] HFA HFA 1-16 Jovel needed [facility] - 00:00: Memoria 00 l [facility] ent [facility] Docusate 2017-07 Yes 50 mg = 1 [place] Sodium 50 2-28 cap, PO, l MG Oral 22:57: BID, PRN Josesito n Capsule 00 Constipati on, Take 1-2 tabs daily to maintain soft formed stools., # 180 cap, 0 Refill(s) POLYETHYLEN 2017-07 Yes 17 gm = 1 M emoria E GLYCOL 2-28 pkt, GT, l 3350 22:57: Daily, As [place] 00 needed for constipati on, 0 Refill(s) POLYETHYLEN 2017-07 No Notes: [place] E GLYCOL 2-24 Dissolve l 3350 15:00: in 8 oz of water or juice. (Same as: Miralax) Clonidine 2017-07 No Notes: Memori a Hydrochlori 2-24 (Same As: l de 0.1 MG 15:00: Catapres) Her holloway Oral Tablet 00 Amlodipine 2017-07 No Notes: Memor ia 2-24 (Same as: l 15:00: Norvasc) Insulin 2017-07 No 60 Memoria regular 2-24 units) l 12:22: WASTE: F/P - Black; E - Municipal Trash Bin Stable for 28 days at room temperatur e Expires in days from ____Date Glucagon 2017-07 No 1 mg, Memoria 2-24 Route: IM, l 12:22: Drug form: PDR/INJ, PRN, Dosing Weight 45.085, kg, PRN Blood Glucose Results, Start date: 06/25/18 6:22:00 [employer]SET [employer]PERATOR, Duration: 30 day, Stop date: 07/25/18 6:21:00 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 Take 1 hour before or 2 hours after meal; "Avoid grapefruit and grapefruit juice". Do not crush Saline 2017-07 No Notes: Memoria Flush 0.9% 2-24 (Same as: l 03:00: BD [place] 00 Posiflush) sennosides, 2017-07 No Notes: [place] [facility] 2-24 (Same as: l 03:00: Senokot) [place] NIFEdipine 2017-07 No Notes: Memor ia 30 mg oral 2-24 (Same as: l tablet, 02:14: Adalat CC, Herm johann extended 00 Procardia release XL) Give on empty stomach. Take 1 hour before or 2 hours after meal; "Avoid grapefruit and grapefruit juice". Do not crush Docusate 2017-07 No Notes: Memoria 2-23 (Same as: l 23:00: Colace) [place] 00 heparin 2017-07 No Notes: Memoria sodium, 2-23 porcine l porcine 22:00: heparin [place] 2500 UNT/ML 00 Injectable Solution Cardene 40 2017-07 No Notes: Memor ia mg in NS 2-23 Same as: l 200 mL 20:24: Cardene [place] (Titrate.) 00 Concentrat IV 40 mg ion: (0.2 mg /1 ml ) sevelamer 2017-07 No 800 mg = 1 Me moria carbonate 2-23 tab, PO, 0 l 800 MG Oral 20:22: Refill(s) H ermann Tablet 00 [Renvela] amLODIPine 2017-07 Yes 10 mg = 1 Me moria 10 mg oral 2-23 tab, PO, l tablet 20:03: Daily, 0 [place] 00 Refill(s) Clonidine 2017-07 No Notes: Memori a Hydrochlori 2-23 (Same As: l de 0.1 MG 19:13: Catapres) Her holloway Oral Tablet 00 Saline 2017-07 No Notes: Memoria Flush 0.9% 2-23 (Same as: l 18:07: BD [place] 00 Posiflush) Nystatin 2017-07 No Notes: Memoria 100 UNT/MG 2-23 (Same l Topical 18:07: as:Mycosta Herm johann Powder 00 tin, Nilstat) For external use only. atorvastati No Notes: [place] n 7-11 (Same As: l 02:00: Lipitor) aspirin 81 Yes 81 mg = 1 Me moria mg tablet, 7-10 tab, PO, l enteric 23:09: Daily, # Josesito n coated 00 30 tab, 0 Refill(s) atorvastati Yes 10 mg = 1 M emoria n 10 mg 7-10 tab, PO, l oral tablet 23:09: Bedtime, # [place] 00 30 tab, 0 Refill(s) heparin No Notes: Memoria 7-10 porcine l 21:00: heparin gabapentin No Notes: Memor ia 100 MG Oral 7-10 (Same as: l Capsule 02:00: Neurontin) Saline No 10 ml, Memoria Flush 0.9% 7-10 Route: l 02:00: IVP, Drug Form: INJ, Dosing Weight 76.007, kg, Q12H, Start date: 01/08/17 21:00:00 CDT, Duration: 30 day, Stop date: 02/07/17 9:00:00 CDT Hydroxyzine No Notes: [place] 7-10 (Same as: l 00:00: Atarax) Avoid alcohol. ARIPiprazol No Notes: [place] e 7-10 Non-Formul l 00:00: yaima Drug. (Same as: Abilify) Amlodipine No Notes: Memor ia 7-09 (Same as: l 23:26: Norvasc) Sertraline No Notes: Memor ia 7-09 (Same as: l 23:25: Zoloft) Clonidine No Notes: Memori a Hydrochlori - (Same As: l de 0.2 MG 23:24: Catapres) Her holloway Oral Tablet 00 200 ACTUAT No Notes: SEE M emoria Albuterol 01-08 RT l 0.09 23:00: DOCUMENTAT [place] MG/ACTUAT 00 ION (Same Metered as: Dose Proventil) Inhaler [ProAir HFA] Hydralazine No Notes: [place] 01-08 (Same as: l 22:42: Apresoline ) Push over 5 minutes Clonidine Yes 0.1 mg = [place] Hydrochlori 01-08 0.5 tab, l de 0.2 MG 22:30: PO, TID, 0 He rmann Oral Tablet 00 Refill(s) ARIPiprazol Yes 10 mg = 1 M emoria e 10 mg 01-08 tab, PO, l oral tablet 22:30: Daily, # He rmann 00 30 tab, 0 Refill(s) Amlodipine Yes 10 mg, PO, M emoria 01-08 Daily, 0 l 22:30: Refill(s) sertraline Yes 50 mg = 1 Me moria 50 mg oral 01-08 tab, PO, l tablet 22:30: Daily, 0 Refill(s) gabapentin Yes 300 mg = 3 M emoria 100 MG Oral 01-08 cap, PO, l Capsule 22:30: Bedtime, 0 Refill(s) Hydroxyzine Yes 50 mg, PO, Memoria 01-08 TID, 0 l 22:30: Refill(s) Enoxaparin No Notes: Memor ia 01-08 (Same as: l 22:00: Lovenox) aspirin 81 No Notes: Do Me moria mg tablet, 01-08 not crush l enteric 21:49: or chew. Josesito n coated 00 (Same As: Ecotrin) Famotidine No Notes: Memor ia 01-08 (Same as: l 21:49: Pepcid) Sodium No 25 mL, Memoria Chloride 01-08 Route: l 0.9% IV 21:48: IVP, Start date: 01/08/17 16:48:00 CDT, Duration: 30 day, Stop date: 02/07/17 16:47:00 CDT, PRN Line Flush BD Normal No Notes: Memori a Saline 01-08 (Same as: l Flush 21:48: BD [place] Posiflush) BD Normal No Notes: Memori a Saline 01-08 (Same as: l Flush 21:47: BD [place] Posiflush) Saline No 10 ml, Memoria Flush 0.9% 01-08 Route: l 21:41: IVP, Drug Form: INJ, Dosing Weight 76.007, kg, PRN, PRN Line Flush, Start date: 01/08/17 16:41:00 CDT, Duration: 30 day, Stop date: 02/07/17 16:40:00 CDT ARIPiprazol Yes 15mg QD Take [address] e (ABILIFY) 8-25 by mouth Luke s - 10 MG 10:49: daily . Medical tablet 42 Center acetaminoph Yes 650mg Take [address] en 8-25 mg by [facility] - (TYLENOL) 10:49: mouth Medical 325 MG 42 every 4 Center tablet (four) hours as needed for Pain. LORazepam Yes 1mg Take [address] (ATIVAN) 1 8-25 by mouth [facility] - MG tablet 10:49: every 6 Medic al 42 (six) Center hours as needed for Anxiety. cloNIDine Yes .1mg Take 0.[address] HCl 8-25 mg by [facility] - (CATAPRES) 10:49: mouth Medica l 0.1 MG 42 every 8 Center tablet (eight) hours as needed (bp>180/10 5). acetaminoph Yes 1{tbl} Take [address] en-codeine 8-25 tablet by Luke s - (TYLENOL 10:49: mouth Medical #3) 300-30 42 every 4 Center mg per (four) tablet hours as needed for Pain. ertapenem Yes .5g Q24H Inject 0.[address] (INVanz) 8-05 g [facility] - IVPB 00:00: intravenou Medical 00 sly daily. Center senna-docus Yes 1{tbl} QD Take [address] ate 8-01 tablet by [facility] - (SENOKOT S) 00:00: mouth Medic al 8.6-50 mg 00 nightly. Center per tablet hydrOXYzine 2015-0 Yes 50mg Take [address] (VISTARIL) 7-16 by mouth 3 Sayra es - 50 MG 02:19: (three) Medical capsule 00 times Center daily as needed for Anxiety. omeprazole 0 Yes 20mg QD Take [address] (PRILOSEC) 7-16 by mouth [facility] - 20 MG 02:19: daily. Medical capsule 00 Center sertraline 0 Yes 50mg QD Take [address] (ZOLOFT) 50 7-16 by mouth Luke s - MG tablet 02:19: daily. Medica l 00 Center Clonidine Clonidine Yes Patrick [address] HCl HCl Jovel [facility] ent [facility] Ramipril Ramipril Yes Patrick [address] Jovel [facility] ent Clinics Carvedilol Carvedilol Yes Patrick as [facility] Jovel directed [facility] ent Clinics Trazodone Trazodone Yes Patrick [address] HCl HCl Jovel at bedtime [facility]ukes - as needed [facility] l [facility] Clinics Isosorbide Isosorbide Yes Patrick [address] Mononitrate Mononitrate Jovel in the [facility]ukes - morning [facility] l [facility] ent Clinics [facility] 2019- No Patrick [address] 10-06 Jovel with meals [facility] - 00:00 Memoria :00 l [facility] ent Clinics Vital Signs Vital Name Observation Time Observation Value Comments Source Systolic (mm Hg) 2018-06-30 19:00:00 [place] rial [place] Diastolic (mm Hg) 2018-06-30 19:00:00 Mem orial [place] Systolic (mm Hg) 2018-06-30 18:50:00 [place] rial [place] Diastolic (mm Hg) 2018-06-30 18:50:00 Mem orial [place] Systolic (mm Hg) 2018-06-30 18:30:00 [place] rial [place] Diastolic (mm Hg) 2018-06-30 18:30:00 Mem orial [place] Temperature Oral (F) 2018-06-30 14:55:00 96.5 F [facility] [place] Respitory Rate 2018-06-30 14:06:00 Memori al [place] Heart Rate 2018-06-30 14:06:00 [facility] [place] Temperature Oral (F) 2018-06-30 14:06:00 96.3 F [facility] [place] Respitory Rate 2018-06-30 10:31:00 Memori al [place] Heart Rate 2018-06-30 10:31:00 [facility] [place] Temperature Oral (F) 2018-06-30 10:31:00 96.5 F [facility] [place] Heart Rate 2018-06-30 06:17:00 [facility] [place] Respitory Rate 2018-06-30 06:17:00 Memori al [place] BMI Calculated 2018-06-24 18:20:00 Memori al [place] Weight 2018-06-24 18:20:00 [facility] [place] Height 2018-06-24 18:20:00 152.4 cm [facility] [place] Systolic (mm Hg) 2017-01-10 21:00:00 [place] rial [place] Diastolic (mm Hg) 2017-01-10 21:00:00 Mem orial [place] Respitory Rate 2017-01-10 21:00:00 Memori al [place] Systolic (mm Hg) 2017-01-10 19:00:00 [place] rial [place] Diastolic (mm Hg) 2017-01-10 19:00:00 Mem orial [place] Respitory Rate 2017-01-10 19:00:00 Memori al [place] Systolic (mm Hg) 2017-01-10 18:11:00 [place] rial [place] Diastolic (mm Hg) 2017-01-10 18:11:00 Mem orial [place] Respitory Rate 2017-01-10 18:11:00 Memori al [place] BMI Calculated 2017-01-08 21:38:00 Memori al [place] Weight 2017-01-08 21:38:00 [facility] [place] Height 2017-01-08 21:38:00 152.4 cm [facility] [place] Procedures Procedure Date / Time Performed Performing Clinician Alli velázquez [id number] 2019-01-21 00:00:00 ENCPL [id number] 2019-01-21 00:00:00 ENCPL [id number] 2019-01-21 00:00:00 ENCPL [id number] 2019-01-21 00:00:00 ENCPL [id number] 2019-01-21 00:00:00 ENCPL [id number] 2019-01-21 00:00:00 ENCPL [id number] 2019-01-21 00:00:00 ENCPL [id number] 2019-01-21 00:00:00 ENCPL [id number] 2019-01-21 00:00:00 ENCPL [id number] 2019-01-21 00:00:[address] Encounters Start End Encounter Admission Attending Care Care Encounter Source Date/Time Date/Time Type Type Clinicians Facility Department ID 2018-10-08 2018-10-08 [facility] [id number] [address] 13:30:00 13:30:00 t [employer] [facility] Family Medicine l Medicine Outpati ent Clinics 2018-09-05 2018-09-05 [facility] [id number] 11:34:00 11:34:00 t [place] [email or web address] [facility] Family Medicine l Medicine Outpati ent Clinics 2018-08-24 2018-08-24 [facility] [id number] 08:15:00 08:15:00 t [place] [email or web address] - [employer] [facility] [facility] 2018-07-18 2018-07-18 [facility] [id number] 10:54:00 10:54:00 t [employer] - [employer] [facility] l Medicine Outpati ent Clinics 2018-07-11 2018-07-11 [facility] [id number] 11:30:00 11:30:00 t [employer] [facility] Family [facility] l Medicine Outpati ent Clinics 2018-06-24 2018-06-30 Outpatient Kamille [facility] [id number] 11:54:00 15:55:00 Adrian Ely 2017-01-08 2017-01-10 Outpatient [place] [facility] [id number] 21:31:00 18:15:00 Tom Garcia Results Test Description Test Time Test Comments Results Result Comments Source [facility] 2018-06-[address] 2018-06-30 [facility]6 [facility] 11:[facility]00 CHEM PANEL 2018-06-30 8 [facility] 11:16:00 CHEM PANEL 2018-06-30 15 [facility] 11:16:00 CHEM PANEL 2018-06-30 14 [facility] 11:16:00 CHEM PANEL 2018-06-30 3.8 [facility] 11:16:00 CHEM PANEL 2018-06-30 11:16:00 Test Item Value Reference Range Interpretation Comme nts A/G Ratio (test code = A/G Ratio) 0.8 1 0.7-1.6 [facility] EZJPE7727-51-14 11:16:003.2[facility]annCHE[facility] PANEL 2018-06-30 11:16:007.0[facility]annCHE[facility] OFNBF5046-76-75 11:16:00 Test Item Value Reference Range Interpretation Comments B/C Ratio (test code = B/C Ratio) 8 1 6-25 [facility] HermannCHEM NYVRV0838-77-26 11:16:000.5[facility]annCHEM PANEL 2018-06-30 11:16:71939Rhhgoobx HermannCHEM YWWTM3952-17-64 11:16:0088[facility]annCHE[facility] LSVTI5560-05-79 11:16:0048[facility]annCHE[facility] TOUXI3080-62-70 11:16:008.0[facility]annCHEM KOGAF3825-39-54 11:16:0013.5[facility]annCHEM CBWOB9890-51-39 11:16:40944Qgzmkmvu HermannCHEM SZWEQ6778-00-58 11:16:0024 [facility]annCHE[facility] MIDSQ8036-19-87 11:16:005.89[facility]annCHEM PANEL 2018-06-30 11:16:84525Unfgmwlu HermannCHEM CLOYR4856-34-90 11:16:004.5[facility] JrdvehoMBZPXLEGBJ7602-32-29 11:16:00 Test Item Value Reference Range Interpretation Comments MCH (test code = MCH) 27.7 pg 27.0-31.0 [facility] RtbpuarMZJHHYWALT2863-49-84 11:16:0028.3[facility] HermannHEMATOLOGY 2018-06-30 11:16:0085.6[facility] OgrbnooBRGTIWFGWU3111-84-07 11:16:0032.3[facility] XtujpgeGDAVLQLXPM2338-95-81 11:16:0016.0[facility] NpdskngXJKOBZHWZU0344-09-20 11:16:20863Fdptzelj SlkkectKYAUEARIIJ3930-43-82 11:16:008.5[facility] XFJCYYWKMN9282-80-84 11:16:004.4[facility] PreunbsMUMRCIEQHS4361-71-09 11:16:00 3.31[facility] HjtayyzUOVZDMZGFB2631-90-14 11:16:009.2[facility] HermannHEMATOLOGY 2018-06-30 11:16:000.9[facility] NzughymECKNXHFMUI7566-97-24 11:16:001+ *ABN*(06/30/18 5:16 AM)[facility] YlxsfmdBVVVJGSJOR7344-54-55 11:16:000.1[facility] AfelzmhRCVPQHIMKW7829-95-84 11:16:0020.2[facility] HefgvbmFPWDQRSDHN1962-38-79 11:16:000.9[facility] CbtkbpzEKCLVSDCCI6976-69-61 11:16:0032.1[facility] XJDEHOWAVD7409-22-72 11:16:001.2[facility] ZivzwlhMXIPKXZTMJ6144-82-53 11:16:002.0 [facility] MapspwkRRDCSRPPCK2476-35-38 11:16:001.4[facility] HermannHEMATOLOGY 2018-06-30 11:16:0045.6[facility] UecbdnmWNRNFONRNY5789-80-49 11:16:00Normal (06/30/18 5:16 AM)[facility] HermannANEMIA WMWFE5352-21-24 14:13:0061[facility]annANEMIA LTPEN4958-68-02 14:13:28089Ofcmonrx HermannANEMIA KZXNN0390-24-26 14:13:84418Ikdqbone HermannANEMIA YWVII5147-25-28 14:13:0027[facility] ANEMIA MMWMC4878-66-26 14:13:26701Kxoyitgt HermannCHEM FBJAY7289-49-97 11:24:00 3.6[facility]annCHEM EORSN8261-56-70 11:24:002.2[facility] HermannCHEM PANEL 2018-06-29 11:24:000.5[facility] HermannCHEM IXUCS9121-36-94 11:24:69962Ciftixhp HermannCHEM OSDNH4576-31-55 11:24:0013[facility]annCHEM XGPSQ7460-81-72 11:24:0014[facility]annCHEM PHAEV7357-85-56 11:24:0013[facility]annCHEM LEUHM0671-97-62 11:24:003.0[facility]annCHE[facility] DXATX1617-23-72 11:24:007.1 [facility]CHE[facility] VKPFU6336-47-12 11:24:90063Gbnwtimp HermannCHEM PANEL 2018-06-29 11:24:007.6[facility]annCHEM YRYBQ4187-55-99 11:24:0025[facility]annCHEM UJUPB7412-84-00 11:24:004.2[facility]annCHEM ADWTE0403-61-14 11:24:84222Ggiplgyc HermannCHEM CBXPY4673-16-49 11:24:0095[facility]annCHEM JEJSF6264-89-16 11:24:0030[facility]annCHEM JYIOM3843-35-07 11:24:004.15 [facility] HermannCHEM XPFZK3749-95-08 11:24:0013.2[facility] HermannCHEM PANEL 2018-06-29 11:24:00 Test Item Value Reference Range Interpretation Comments A/G Ratio (test code = A/G Ratio) 0.7 1 0.7-1.6 [facility] HermannCHEM LKBKT2451-59-26 11:24:004.1[facility]annCHEM PANEL 2018-06-29 11:24:00 Test Item Value Reference Range Interpretation Comments B/C Ratio (test code = B/C Ratio) 7 1 6-25 [facility] JomagprVWMQIFZKBP3061-61-49 11:24:008.2[facility] HermannHEMATOLOGY 2018-06-29 11:24:0016.5[facility] IfsmbpcLCRAJGTSWK3332-77-47 11:24:65358Mhnessgg KwlesbgDSGQAGUVXA7314-34-77 11:24:0085.3[facility] BcwbwlzFWGPPUMGXY0955-57-90 11:24:00 Test Item Value Reference Range Interpretation Comments MCH (test code = MCH) 27.9 pg 27.0-31.0 [facility] HdpaikqIBZNFIEFWL3629-31-59 11:24:0032.7[facility] HermannHEMATOLOGY 2018-06-29 11:24:003.40[facility] XvwrmplCXZQTOJVYV2058-36-86 11:24:009.5[facility] JncozeiGPXJBROTIB2506-66-91 11:24:005.3[facility] DnxiyjqGICPDGQXLT9656-95-31 11:24:0029.0[facility] BdidzpiXBSRBOJCNO8866-19-39 11:24:001.6[facility] VAJAIVGURA7136-53-55 11:24:0020.2[facility] VdrizlpWLVBBMVMTO5349-20-68 11:24:00 50.7[facility] YgvspqkTHZSQBAOVP6092-38-70 11:24:0027.3[facility] HermannHEMATOLOGY 2018-06-29 11:24:001.1[facility] RhjetcnWCMFYMYIEG2562-83-01 11:24:000.1[facility] MrgdnhzAAJPAKVJQH6564-32-91 11:24:000.7[facility] YceovcuGWHRYOKLIL3448-04-48 11:24:002.7[facility] LrblhhbBKHEEXPMLF3326-35-57 11:24:001.1[facility] PKGQIFSNWI6385-35-00 11:24:001.5[facility] HermannCHEM EYWDG9164-51-26 11:13:002.2 [facility]annCHEM EVDRU2779-86-79 11:13:004.1[facility] HermannCHEM PANEL 2018-06-28 11:13:006[facility] HermannCHEM HZOQN3143-63-82 11:13:0025[facility] HermannCHEM URPCM1138-94-64 11:13:0094[facility] HermannCHEM BKCNA2428-23-38 11:13:0049[facility] HermannCHEM JOTJQ3513-90-76 11:13:004.3[facility] HermannCHEM VKENE0232-73-13 11:13:007.38[facility] HermannCHEM NYPEG9407-93-56 11:13:55837 [facility]annCHEM RSPPD1567-59-81 11:13:97866Hqcjsfos HermannCHEM PANEL 2018-06-28 11:13:003.1[facility] HermannCHEM PFHSO2659-62-91 11:13:007.6[facility] HermannCHEM ASJBG3187-06-53 11:13:006.9[facility] HermannCHEM FVZHR0225-29-39 11:13:0013[facility]annCHEM XZJJG0813-59-55 11:13:71557Exxejcml HermannCHEM NSVMW4293-60-27 11:13:0011[facility] HermannCHEM VZEVU6569-75-51 11:13:000.5 [facility] HermannCHEM JKOWB5107-74-29 11:13:003.8[facility] HermannCHEM PANEL 2018-06-28 11:13:00 Test Item Value Reference Range Interpretation Comments B/C Ratio (test code = B/C Ratio) 7 1 6-25 [facility] HermannCHEM CVBOR6485-60-63 11:13:00 Test Item Value Reference Range Interpretation Comments A/G Ratio (test code = A/G Ratio) 0.8 1 0.7-1.6 [facility] HermannCHEM AUWQT9984-52-36 11:13:0012.3[facility] HermannHEMATOLOGY 2018-06-28 11:13:008.5[facility] XdumtyxWDKUOTQTFF4882-69-43 11:13:55873Bntppavn NtcxbskCTKWBHWACK1876-14-36 11:13:0016.0[facility] CawszovOFBHOZGWOP7638-75-23 11:13:0031.5[facility] CghobnzSVTYYUNGSV0586-02-58 11:13:00 Test Item Value Reference Range Interpretation Comments MCH (test code = MCH) 26.9 pg 27.0-31.0 [facility] RfwxzseDOVSBHURZJ0102-76-98 11:13:0085.6[facility] HermannHEMATOLOGY 2018-06-28 11:13:0029.4[facility] JasnppxXKYOBPHORM2492-70-95 11:13:003.43[facility] BvbsqdhQAJCXUZLLG8683-61-85 11:13:005.1[facility] FqdfdzvGHBQFNJYQL5507-42-20 11:13:009.2[facility] GsknuxwWNWODRHVKZ1572-77-66 11:13:000.1[facility] YOUEQCUALP3584-49-66 11:13:000.1[facility] QgbbzhtKAEJBIGVLG1624-60-87 11:13:000.9 [facility] VtwkxupFYWWRXNVBB0763-55-56 11:13:0017.7[facility] HermannHEMATOLOGY 2018-06-28 11:13:0052.2[facility] KtdmywaLKCGVSPXGP5760-86-16 11:13:0027.8[facility] GjushkmFUKJHSIJVG9651-88-28 11:13:001.4[facility] BstxarcYVNFQOMDUB7369-56-01 11:13:002.7[facility] SppmocbOHTEHKYJJO4128-88-12 11:13:001.0[facility] YFFKCFGVNE1805-90-35 11:13:001.3[facility] HermannAMINO RSAI3858-13-83 19:12:04686 [facility] HermannAMINO PAKJ1443-54-38 19:12:0040.6[facility] HermannANEMIA STUDY 2018-06-27 19:12:45180Civvrdvo HermannCHEM MRUHJ0354-02-68 19:12:0029.0[facility] FmvlusxLLKSJXQJTZ6527-73-38 19:12:00Non-Reactive (06/27/18 1:12 PM)[facility] HermannMOLECULAR AWGATDCEQJ1221-66-42 20:58:00<1.2[facility] HermannMOLECULAR FDCSMPXUIV5653-18-57 20:58:00Not Detected (06/26/18 2:58 PM)[facility] URINE AND PVOBD4758-45-15 14:03:002[facility] HermannURINE AND LTDIA5793-69-56 14:03:00Negative (06/26/18 8:03 AM)[facility] AND BHFNC4430-62-91 14:03:00Negative (06/26/18 8:03 AM)[facility] AND ONEYZ6294-34-41 14:03:00<1[facility] AND NOBQU5770-69-90 14:03:00Negative (06/26/18 8:03 AM)[facility] AND RVHRD5701-93-12 14:03:00 Test Item Value Reference Range Interpretation Comments UA pH (test code = UA pH) 7.5 1 5.0-8.0 [facility] AND NYJSZ1366-04-53 14:03:00Negative *NA*(06/26/18 8:03 AM)[facility] HSGIK1476-45-32 14:03:00Light Yellow *NA*(06/26/18 8:03 AM)[facility] AND RQFCA4235-26-49 14:03:00 Test Item Value Reference Range Interpretation Comments UA Spec Grav (test code = UA Spec 1.004 1 Grav) [facility] AVEZD5257-96-86 14:03:00Clear (06/26/18 8:03 AM) [facility] LyseoeqLCGBHOOHRC1302-53-74 19:39:0066.7[facility] HermannIMMUNOLOGY 2018-06-24 19:39:00Positive *ABN*(06/24/18 1:39 PM)[facility] HermannIMMUNOLOGY 2018-06-24 19:39:00Negative *NA*(06/24/18 1:39 PM)[facility] HermannIMMUNOLOGY 2018-06-24 19:39:00Negative *NA*(06/24/18 1:39 PM)[facility] HermannIMMUNOLOGY 2018-06-24 19:39:00Negative *NA*(06/24/18 1:39 PM)[facility] HermannBACTERIAL - DWXSVUOQ9262-44-26 19:05:00Negative (06/24/18 1:05 PM)[facility] HermannCARDIAC UICTQUU3840-17-60 19:05:000.05[facility] HermannCARDIAC TCWNOKN3906-35-32 19:05:00 1953[facility] HermannCARDIAC KBSEQOW9604-55-22 19:05:7795755Viudszqa HermannCHEM AUJMA3768-42-83 19:05:000.1[facility] HermannCHEM YYCTF1801-12-70 19:05:000.8 [facility] NubgyocHNMRSMVERG3542-20-33 19:05:00 Test Item Value Reference Range Interpretation Comments PTT (test code = PTT) 36.4 s 22.9-35.8 [facility] DdllaorEGNCUJNSZW7176-73-32 19:05:00 Test Item Value Reference Range Interpretation Comments PT (test code = PT) 15.4 s 12.0-14.7 [facility] SjwbfgbXPTPBDWDHF3021-27-89 19:05:00 Test Item Value Reference Range Interpretation Comments INR (test code = INR) 1.24 1 0.85-1.17 [facility] GbxrugbKQZCBORTEV6613-99-84 19:05:000.1[facility] HermannIMMUNOLOGY 2018-06-24 19:05:00Negative *NA*(06/24/18 1:05 PM)[facility] HermannMOLECULAR DTFVLEHOKP1529-86-61 19:05:00Negative (06/24/18 1:05 PM)[facility] MOLECULAR WMKPEIFLAV5800-25-16 19:05:00Flocked [employer] Swab (06/24/18 1:05 PM) [facility] HermannMOLECULAR MMMOHYPYRX6239-70-98 19:05:00Negative (06/24/18 1:05 PM)[facility] HermannMOLECULAR CZNWURELDJ0352-82-97 19:05:00Negative (06/24/18 1:05 PM)[facility] HermannPARATHYROID PYIXLOR0511-65-57 19:05:000.92[facility] HermannPARATHYROID IAVTKKT8077-98-38 19:05:000.86[facility] HermannCHEM PANEL 2017-01-10 07:46:0014[facility] HermannCHEM EMZAA8377-71-63 07:46:003.84[facility] HermannCHEM NAKWM9114-10-53 07:46:008.3[facility] HermannCHEM WTNUV8355-56-93 07:46:0010.1[facility] HermannCHEM VKUHR0150-50-09 07:46:0032[facility] HermannCHEM VAHBP4830-85-97 07:46:71038Eiyvsnnn HermannCHEM ZICDK2671-42-32 07:46:004.1 [facility] HermannCHEM RDUKM1366-35-96 07:46:51727Isgyqyjs HermannCHEM PANEL 2017-01-10 07:46:009[facility] HermannCHEM DHQJE9744-07-52 07:46:0091[facility] HermannCHEM HBVHT8654-71-71 07:46:002.6[facility] NdeyegtFKFTHZPUIK7887-75-30 23:45:00Negative *NA*(01/09/17 6:45 PM)[facility] HermannDRUG OXOUXD4506-54-85 23:00:00See Note *NA*(01/08/17 6:00 PM)[facility] HermannDRUG PNZXSF9462-94-60 23:00:00Negative *NA*(01/08/17 6:00 PM)[facility] HermannDRUG OUNFGR5774-82-48 23:00:00Negative *NA*(01/08/17 6:00 PM)[facility] HermannDRUG JWSBUH8079-84-87 23:00:00Negative *NA*(01/08/17 6:00 PM)[facility] HermannDRUG XKTWIO3993-33-87 23:00:00Negative *NA*(01/08/17 6:00 PM)[facility] HermannDRUG QNDIPY4784-30-96 23:00:00Negative *NA*(01/08/17 6:00 PM)[facility] HermannDRUG TIXHXW9020-40-10 23:00:00Negative *NA*(01/08/17 6:00 PM)[facility] HermannDRUG MRARKD7094-85-04 23:00:00Negative *NA*(01/08/17 6:00 PM)[facility]annURINE AND GHYUF5171-56-62 23:00:00>=9.0 *ABN*(01/08/17 6:00 PM)[facility]annUR[facility] AND VOFVW9727-40-04 23:00:00<1[facility]annUR[facility] AND WDBDI4987-53-27 23:00:001[facility]INE AND HJKWI2369-09-11 23:00:001.004[facility]annURINE AND QHCIX4556-75-32 23:00:00Negative (01/08/17 6:00 PM)[facility] AND RHSRJ6844-28-75 23:00:00Clear (01/08/17 6:00 PM)[facility] AND DFNJG9370-29-39 23:00:00 Negative *NA*(01/08/17 6:00 PM)[facility] AND RJOIH0998-37-43 23:00:00 Negative (01/08/17 6:00 PM)[facility] AND POOIK7052-81-43 23:00:00 Negative (01/08/17 6:00 PM)[facility] DamfpaiBCEQHCKHZQ2599-09-78 22:21:00 Test Item Value Reference Range Interpretation Comments PTT (test code = PTT) 36.2 s 22.9-35.8 [facility] KpgcqdgVZMRSBNAHD2308-65-14 22:21:001.05[facility] HermannHEMATOLOGY 2017-01-08 22:21:00 Test Item Value Reference Range Interpretation Comments PT (test code = PT) 13.9 s 12.0-14.7 [facility] ZeiqwobOMELDX7842-69-62 22:21:0022[facility] SvfduybNLRCER1894-44-14 22:21:0050[facility] HriadllWKGRBP8787-17-29 22:21:05493Ekihkpbr HermannLIPIDS 2017-01-08 22:21:23091Skrbvdcz GzqxsgqCRSTSV9443-07-18 22:21:0073[facility] JybvokqGLZLFK2800-60-96 22:21:001.99[facility] HermannSPECIAL HXFTYMCVH2852-54-44 22:21:004.6[facility] HermannCHEM ECFGJ2465-57-57 22:20:003[facility] HermannCHEM JFMOL2212-58-38 22:20:0014.4[facility] HermannCHEM CILIR3964-65-81 22:20:005.5 [facility] HermannCHEM WXAIV2004-80-14 22:20:000.6[facility] HermannCHEM PANEL 2017-01-08 22:20:008[facility] HermannCHEM AFUHT9146-18-03 22:20:0085[facility] HermannCHEM WBNRF6540-49-84 22:20:0026[facility] HermannCHEM JRGPD6335-91-62 22:20:0014[facility] HermannCHEM GNIQM7212-68-55 22:20:006.23[facility] HermannCHEM ZKFRE3805-82-51 22:20:003.3[facility] HermannCHEM DADZI9092-90-34 22:20:0016 [facility]annCHEM GFSPK3981-96-23 22:20:0024[facility] HermannCHEM PANEL 2017-01-08 22:20:000.5[facility] HermannCHEM ZLRJQ3178-22-83 22:20:008.8[facility] HermannCHEM DSJKR1615-80-10 22:20:52415Qtfgtovm HermannCHEM EGXNE1559-37-70 22:20:11234Zpnoniqf HermannCHEM TCKGP1111-57-80 22:20:005.4[facility] HermannCHEM EWUJI7610-57-53 22:20:009.1[facility] HermannCHEM ZZNAP1826-59-24 22:20:59251 [facility]annCHEM HXTGU7893-09-00 22:20:002.4[facility] HermannHEMATOLOGY 2017-01-08 22:20:0010.5[facility] TbhhdzqRZNCURMCOF3468-99-11 22:20:0031.5[facility] ScqmzoiTWPVVHSYCR0937-44-92 22:20:009.0[facility] TpisovmQFFAUGTLEL5915-14-99 22:20:003.70[facility] MosqywfNNYHEMGYUB9236-29-74 22:20:0085.3[facility] ZRUXPQKAVO3318-81-13 22:20:00 Test Item Value Reference Range Interpretation Comments MCH (test code = MCH) 28.5 pg 27.0-31.0 [facility] JpkytaeQNWSLZUUYK7159-85-30 22:20:0033.4[facility] HermannHEMATOLOGY 2017-01-08 22:20:0012.9[facility] FxyenmsGBWDFXHYRN9406-27-33 22:20:25744Hqpvsacm LhnsjkdWRYVQVJUIJ5363-60-38 22:20:009.0[facility] MmgetumCOOCVFVRHI6906-39-80 22:20:0012.8[facility] WhcmllqNLXGSKIGBB9593-77-24 22:20:0043.7[facility] GMBYBBRRBM0701-43-39 22:20:0040.4[facility] HkvnmecQITIAKWPEX3070-81-18 22:20:00 4.0[facility] AsqxgjqZQEOMUAPYA1408-57-25 22:20:001.9[facility] HermannHEMATOLOGY 2017-01-08 22:20:001.2[facility] LajeigcMSNGQERYTA1302-07-60 22:20:003.7[facility] AhtptybFNMQBWVWKK7531-28-62 22:20:001.2[facility] QakvsxaCEAZAIUBFR8840-64-97 22:20:000.2[facility] LuhhygzPLYHJVYWMR8336-08-38 22:20:000.1[facility]
[2020-03-19 22:39] LABS: MPV 8.7 fL (7.6-11.3)
[2020-03-19 22:47] LABS: Absolute Lymphocytes (CBC) 1.1 K/uL (0.7-4.9); Hematocrit 32.6 % (36.0-45.0); RBC Red Blood Cell Count 3.78 M/uL (3.86-4.86)
[2020-03-19 22:49] LABS: Protime INR 1.18
[2020-03-19 23:00] LABS: Albumin 3.5 g/dL (3.4-5.0); Bilirubin Direct 0.2 mg/dL (0-0.2); Bilirubin Total 0.5 mg/dL (0.2-1.0); Magnesium 1.8 mg/dL (1.8-2.4); Potassium 3.3 mmol/L (3.5-5.1); Protein, Total 7.6 g/dL (6.4-8.2); Troponin (Emerg Dept Use Only) 0.04 ng/mL (0.0-0.045)
[2020-03-19] MEDS ORDERED: ALBUTEROL INHALER 60 PUFF/8 GM IH ONE (23:08)
[2020-03-20 00:21] LABS: Blood O2 Saturation 94.8 % (92-98.5)
[2020-03-20] MEDS ORDERED: POTASSIUM CL SA 10 MEQ TAB PO ONE (00:42)
--- NOTE | 2020-03-20 01:14 | EDPHYS ---
Physician Documentation [facility] Name: Michelle Ochoa Age: 59 yrs Sex: Female : 1960 Arrival Date: 03/19/2020 Time: 19:19 Bed 7 Private MD: ED Physician rEick Ro HPI: 03/20 01:07 This 59 yrs old Black Female presents to ER via Ambulatory with complaints of Shortness pkl Of Breath. 01:07 The patient has shortness of breath at rest. Onset: The symptoms/episode began/occurred pkl yesterday. Historical: - Allergies: 03/19 19:33 No Known Allergies; jb4 - Home Meds: 19:33 acetaminophen 325 mg Oral tab 2 tabs q4hrs prn [Active]; albuterol sulfate 90 jb4 mcg/actuation Inhl HFAA 1 puff nightly [Active]; amantadine HCl 100 mg Oral cap 2 caps on Mondays [Active]; aspirin 81 mg Oral TbEC 1 tab once daily [Active]; clonidine HCl 0.1 mg Oral tab 1 tab 2 times per day [Active]; docusate sodium 100 mg Oral cap 1 cap 2 times per day [Active]; fluticasone furoate inhalation 1 puff once daily [Active]; isosorbide mononitrate 30 mg Oral Tb24 1 tab twice a day [Active]; melatonin 3 mg Oral tab 3 tab nightly [Active]; sevelamer HCl 800 mg Oral 1 tab 3 times per day [Active]; polyethylene glycol 3350 miscellaneous powd q 12hrs prn [Active]; Tums Oral 500 mg 2 tabs TID [Active]; - PMHx: 19:33 Anemia; Bronchitis; CHF; CVA; Dementia; Dialysis- T/Th/Sat; ENDOCARDITIS; ESRD; jb4 Hypertension; kidney failure; osteoarthritis; Renal Disease; PATRICK; COPD; - PSHx: 19:33 Triple bypass; jb4 - Immunization history:: Adult Immunizations up to date. - Social history:: Smoking status: Patient reports the use of cigarette tobacco products, smokes one-half pack cigarettes per day, Patient/guardian denies using alcohol, street drugs. ROS: 03/20 01:07 Eyes: Negative for injury, pain, redness, and discharge, ENT: Negative for injury, pkl pain, and discharge, Neck: Negative for injury, pain, and swelling, Cardiovascular: Negative for chest pain, palpitations, and edema. Respiratory: Positive for shortness of breath, at rest. Abdomen/GI: Negative for abdominal pain, nausea, vomiting, and diarrhea. Back: Negative for pain at rest. : Negative for urinary symptoms. MS/extremity: Negative for acute changes. Skin: Negative for rash. Neuro: Negative for altered mental status. Exam: 01:07 Head/Face: Normocephalic, atraumatic. Eyes: Pupils equal round and reactive to light, pkl extra-ocular motions intact. Lids and lashes normal. Conjunctiva and sclera are non-icteric and not injected. Cornea within normal limits. Periorbital areas with no swelling, redness, or edema. ENT: Nares patent. No nasal discharge, no septal abnormalities noted. Tympanic membranes are normal and external auditory canals are clear. Oropharynx with no redness, swelling, or masses, exudates, or evidence of obstruction, uvula midline. Mucous membranes moist. Neck: Trachea midline, no thyromegaly or masses palpated, and no cervical lymphadenopathy. Supple, full range of motion without nuchal rigidity, or vertebral point tenderness. No Meningismus. Chest/axilla: Normal chest wall appearance and motion. Nontender with no deformity. No lesions are appreciated. Cardiovascular: Regular rate and rhythm with a normal S1 and S2. No gallops, murmurs, or rubs. Normal PMI, no JVD. No pulse deficits. 01:07 Respiratory: mild respiratory distress is noted, Respirations: normal, Breath sounds: rales, that are mild, are scattered. 01:07 Abdomen/GI: Exam negative for acute changes. 01:07 Back: Exam negative for acute changes. 01:07 : Exam negative for acute changes. 01:07 Musculoskeletal/extremity: Exam is negative for acute changes. 01:07 Skin: Exam negative for rash. 01:07 Neuro: Orientation: is normal, Mentation: is normal, Cranial nerves: grossly normal, Motor: is normal. Vital Signs: 03/19 19:28 BP 181 / 80; Pulse 70; Resp 24; Temp 99.1(O); Pulse Ox 98% on R/A; Weight 84.37 kg (R); jb4 Height 5 ft. 0 in. (152.40 cm) (R); Pain 0/10; 21:25 BP 159 / 78; Pulse 71; Resp 24 S; Pulse Ox 99% on R/A; ca1 22:51 BP 182 / 92; Pulse 72; Resp 27; Pulse Ox 97% on R/A; jb4 23:54 BP 176 / 75; Pulse 70; Resp 20; Pulse Ox 98% on R/A; jb4 03/20 00:03 Temp 99.3(TE); jb4 00:30 BP 154 / 84; Pulse 69; Resp 20; Pulse Ox 100% on R/A; jb4 01:30 BP 167 / 72; Pulse 70; Resp 20; Pulse Ox 99% on R/A; jb4 02:30 BP 162 / 69; Pulse 70; Resp 24; Pulse Ox 99% on R/A; jb4 03/19 19:28 Body Mass Index 36.33 (84.37 kg, 152.40 cm) jb4 MDM: 03/19 23:09 Patient medically screened. pkl 03/20 01:10 Data reviewed: vital signs, nurses notes, lab test result(s), EKG, radiologic studies, pkl plain films. ED course: Talked to Apollo Patterson for observation ( Dr. Morris ). 03/19 21:17 Order name: Basic Metabolic Panel; Complete Time: 23:17 bb 03/19 21:17 Order name: CBC with Diff; Complete Time: 23:17 bb 03/19 21:17 Order name: LFT's; Complete Time: 23:17 bb 03/19 21:17 Order name: Magnesium; Complete Time: 23:17 bb 03/19 21:17 Order name: NT PRO-BNP; Complete Time: 23:17 bb 03/19 21:17 Order name: PT-INR; Complete Time: 23:17 bb 03/19 19:52 Order name: Chest Pa And Lat (2 Views) XRAY snw 03/19 21:17 Order name: Troponin (emerg Dept Use Only); Complete Time: 23:17 bb 03/19 23:18 Order name: ABG; Complete Time: 00:26 pkl 03/20 00:29 Order name: D-Dimer; Complete Time: 01:14 pkl 03/20 01:18 Order name: SARS-COV-2 RT PCR; Complete Time: 06:08 [facility] 03/19 19:52 Order name: EKG; Complete Time: 19:53 [facility] 03/19 19:52 Order name: EKG - Nurse/Tech; Complete Time: 22:46 [facility] 03/19 21:17 Order name: Cardiac monitoring; Complete Time: 21:20 03/19 21:17 Order name: IV Saline Lock; Complete Time: 22:38 03/19 21: Order name: Labs collected and sent; Complete Time: 22:46 03/19 21: Order name: O2 Per Protocol; Complete Time: 21:43 03/19 21: Order name: O2 Sat Monitoring; Complete Time: :43 bb Administered Medications: 03/19 23:00 Drug: Albuterol HFA Inhaler 2 puffs Route: Inhalation; jb4 03/20 00:03 Follow up: Response: No adverse reaction; Marked relief of symptoms; Wheezing diminishedjb4 00:40 Drug: K-Dur 20 mEq Route: PO; jb4 01:35 Drug: SOLU-Medrol 125 mg Route: IVP; Site: right wrist; jb4 Disposition: 03/20/20 01:13 Hospitalization ordered by Nicholas Morris for Observation. Preliminary diagnosis is Dyspnea. Chronic renal disease. Possible pulmonary embolism. Volume overload. - Bed requested for Telemetry/MedSurg (observation). - Status is Observation. jb4 - Condition is Stable. - Problem is new. - Symptoms are unchanged. Signatures: Dispatcher [employer] [facility] Erick Ro MD MD pkl Waters, Shelly, ADRIANO-C [employer] Martha Vickers RN RN Apollo Gallagher FNP-Juanita MENDESP-ClaNoelle Stephen, Calixto Corbin RN, SAÚL RN jb4 Corrections: (The following items were deleted from the chart) :03/19 23:20 CORONAVIRUS+[email or web address] ordered. [facility] 03/20 02:08 01:13 Hospitalization Ordered by Nicholas Morris DO for Observation. Preliminary cg diagnosis is Dyspnea. Chronic renal disease. Possible pulmonary embolism. Volume overload. Bed requested for Telemetry/MedSurg (observation). Status is Observation. Condition is Stable. Problem is new. Symptoms are unchanged. pkl 03:20 02:08 03/20/2020 01:13 Hospitalization Ordered by Nicholas Morris DO for Observation. jb4 Preliminary diagnosis is Dyspnea. Chronic renal disease. Possible pulmonary embolism. Volume overload. Bed requested for Telemetry/MedSurg (observation). Status is Observation. Condition is Stable. Problem is new. Symptoms are unchanged. cg
--- NOTE | 2020-03-20 01:14 | ER ---
Nurse's Notes [facility] Name: Michelle Ochoa Age: 59 yrs Sex: Female : 1960 Arrival Date: 03/19/2020 Time: 19:19 Bed 7 Private MD: Diagnosis: Dyspnea. Chronic renal disease. Possible pulmonary embolism. Volume overload Presentation: 03/19 19:28 Chief complaint: Patient states: I have had shortness of breath since yesterday. It is jb4 worse when sitting or laying down. Coronavirus screen: Client denies travel out of the [place] in the last 14 days. Client presents with at least one sign or symptom that may indicate coronavirus-19. Standard/surgical mask placed on the client. Provider contacted for isolation considerations. Ebola Screen: No symptoms or risks identified at this time. Initial Sepsis Screen: Does the patient meet any 2 criteria? No. Patient's initial sepsis screen is negative. Does the patient have a suspected source of infection? No. Patient's initial sepsis screen is negative. Risk Assessment: Do you want to hurt yourself or someone else? Patient reports no desire to harm self or others. Onset of symptoms was March 18, 2020. Transition of care: patient was not received from another setting of care. 19:28 Method Of Arrival: Ambulatory jb4 19:28 Acuity: ZAID 3 jb4 Historical: - Allergies: 19:33 No Known Allergies; jb4 - Home Meds: 19:33 acetaminophen 325 mg Oral tab 2 tabs q4hrs prn [Active]; albuterol sulfate 90 jb4 mcg/actuation Inhl HFAA 1 puff nightly [Active]; amantadine HCl 100 mg Oral cap 2 caps on Mondays [Active]; aspirin 81 mg Oral TbEC 1 tab once daily [Active]; clonidine HCl 0.1 mg Oral tab 1 tab 2 times per day [Active]; docusate sodium 100 mg Oral cap 1 cap 2 times per day [Active]; fluticasone furoate inhalation 1 puff once daily [Active]; isosorbide mononitrate 30 mg Oral Tb24 1 tab twice a day [Active]; melatonin 3 mg Oral tab 3 tab nightly [Active]; sevelamer HCl 800 mg Oral 1 tab 3 times per day [Active]; polyethylene glycol 3350 miscellaneous powd q 12hrs prn [Active]; Tums Oral 500 mg 2 tabs TID [Active]; - PMHx: 19:33 Anemia; Bronchitis; CHF; CVA; Dementia; Dialysis- T/Th/Sat; ENDOCARDITIS; ESRD; jb4 Hypertension; kidney failure; osteoarthritis; Renal Disease; PATRICK; COPD; - PSHx: 19:33 Triple bypass; jb4 - Immunization history:: Adult Immunizations up to date. - Social history:: Smoking status: Patient reports the use of cigarette tobacco products, smokes one-half pack cigarettes per day, Patient/guardian denies using alcohol, street drugs. Screenin:45 Abuse screen: Denies threats or abuse. Denies injuries from another. Nutritional ca1 screening: No deficits noted. Tuberculosis screening: No symptoms or risk factors identified. Fall Risk IV access (20 points). Assessment: 20:45 General: Appears in no apparent distress. comfortable, Behavior is calm, cooperative, ca1 appropriate for age. Pain: Denies pain. Neuro: Level of Consciousness is awake, alert, obeys commands, Oriented to person, place, time, situation. Cardiovascular: Heart tones S1 S2 present Capillary refill < 3 seconds Patient's skin is warm and dry. Rhythm is sinus rhythm Dialysis shunt: in the left arm, with palpable thrill, with auscultated bruit, with no erythema, with no edema, no bleeding noted. Respiratory: Reports shortness of breath at rest since yesterday Airway is patent Respiratory effort is even, unlabored, Respiratory pattern is regular, symmetrical, tachypnea Breath sounds with wheezes in right upper lobe and left upper lobe Denies cough. GI: Abdomen is round non-distended, Bowel sounds present X 4 quads. Abd is soft and non tender X 4 quads. : No signs and/or symptoms were reported regarding the genitourinary system. EENT: No signs and/or symptoms were reported regarding the EENT system. Derm: Skin is intact, is healthy with good turgor, Skin is pink, warm \T\ dry. Musculoskeletal: Circulation, motion, and sensation intact. Capillary refill < 3 seconds. 21:24 Reassessment: Patient appears in no apparent distress at this time. Patient and/or ca1 family updated on plan of care and expected duration. Pain level reassessed. Patient is alert, oriented x 3, equal unlabored respirations, skin warm/dry/pink. 22:14 Reassessment: Patient appears in no apparent distress at this time. Patient and/or ca1 family updated on plan of care and expected duration. Pain level reassessed. Patient is alert, oriented x 3, equal unlabored respirations, skin warm/dry/pink. 22:51 Reassessment: Patient and/or family updated on plan of care and expected duration. Pain jb4 level reassessed. PT is sitting in bed with even and labored respirations. Respirations remain tachypneic. No s/s of pain or distress noted. 22:54 Respiratory: Breath sounds are clear in left upper lobe, left lower lobe, left jb4 posterior upper lobe and left posterior lower lobe Breath sounds with wheezes in right upper lobe, right middle lobe, right lower lobe, right posterior upper lobe, right posterior middle lobe and right posterior lower lobe. 22:55 Reassessment: Provider updated on PT status, see [facility] for orders. jb4 23:10 Reassessment: Pt raised to 90 degree sitting position, provider at the bedside. jb4 23:16 Reassessment: Changed to 45 degree sitting positions per request. jb4 23:54 Reassessment: Patient appears in no apparent distress at this time. Patient and/or jb4 family updated on plan of care and expected duration. Pain level reassessed. Pt remains tachypneic with labored, symmetrical and even respiration, reports feeling better after using albuterol inhaler. Patient states feeling better. 03/20 00:01 Respiratory: Airway is patent Respiratory effort is even, labored, Respiratory pattern jb4 is symmetrical, tachypnea Breath sounds are clear in left upper lobe, left lower lobe, right lower lobe, left posterior upper lobe, left posterior lower lobe and right posterior lower lobe Breath sounds with wheezes in right upper lobe, right middle lobe, right posterior upper lobe and right posterior middle lobe. 00:39 Reassessment: Patient and/or family updated on plan of care and expected duration. Pain jb4 level reassessed. Patient is alert, oriented x 3, equal unlabored respirations, skin warm/dry/pink. PT is no longer labored with respirations. Reports feeling much better. 01:30 Reassessment: Patient appears in no apparent distress at this time. No changes from jb4 previously documented assessment. Patient and/or family updated on plan of care and expected duration. Pain level reassessed. 02:25 Reassessment: Patient appears in no apparent distress at this time. Patient and/or jb4 family updated on plan of care and expected duration. Pain level reassessed. PT resting in bed, respirations are shallow and tachypneic, respirations labored and even/ symmetrical. 02:44 Reassessment: Patient appears in no apparent distress at this time. No changes from jb4 previously documented assessment. Patient and/or family updated on plan of care and expected duration. Pain level reassessed. Report given to SAÚL Medrano. Vital Signs: 03/19 19:28 BP 181 / 80; Pulse 70; Resp 24; Temp 99.1(O); Pulse Ox 98% on R/A; Weight 84.37 kg (R); jb4 Height 5 ft. 0 in. (152.40 cm) (R); Pain 0/10; 21:25 BP 159 / 78; Pulse 71; Resp 24 S; Pulse Ox 99% on R/A; ca1 22:51 BP 182 / 92; Pulse 72; Resp 27; Pulse Ox 97% on R/A; jb4 23:54 BP 176 / 75; Pulse 70; Resp 20; Pulse Ox 98% on R/A; 4 03/20 00:03 Temp 99.3(TE); jb4 00:30 BP 154 / 84; Pulse 69; Resp 20; Pulse Ox 100% on R/A; jb4 01:30 BP 167 / 72; Pulse 70; Resp 20; Pulse Ox 99% on R/A; jb4 02:30 BP 162 / 69; Pulse 70; Resp 24; Pulse Ox 99% on R/A; jb4 03/19 19:28 Body Mass Index 36.33 (84.37 kg, 152.40 cm) 4 ED Course: 03/19 19:19 Patient arrived in ED. cl3 19:30 Triage completed. jb4 19:33 Arm band placed on right wrist. jb4 20:45 Patient has correct armband on for positive identification. Placed in gown. Bed in low ca1 position. Call light in reach. Side rails up X2. site monitor on. Pulse ox on. NIBP on. Warm blanket given. Head of bed elevated. 20:49 Chest Pa And Lat (2 Views) XRAY In Process Unspecified. EDMS 21:30 Missed attempt(s): 22 gauge in right antecubital area. by Staci hvac service technician. ca1 21:35 Missed attempt(s): 22 gauge in right forearm. by Staci hvac service technician. Bleeding controlled, ca1 band aid applied, catheter tip intact. 21:43 Cynthia Green RN is Primary Nurse. ca1 21:45 Missed attempt(s): 22 gauge in right hand. Bleeding controlled, band aid applied, ca1 catheter tip intact. 22:21 Report given to SAÚL Herman. ca1 22:34 Inserted saline lock: 20 gauge in right wrist, using aseptic technique. Blood collected.rr5 23:09 Erick Ro MD is Attending Physician. pkl 03/20 01:11 Nicholas Morris DO is Hospitalizing Provider. pkl 02:44 No provider procedures requiring assistance completed. Patient admitted, IV remains in jb4 place. Administered Medications: 03/19 23:00 Drug: Albuterol HFA Inhaler 2 puffs Route: Inhalation; jb4 03/20 00:03 Follow up: Response: No adverse reaction; Marked relief of symptoms; Wheezing diminishedjb4 00:40 Drug: K-Dur 20 mEq Route: PO; jb4 01:35 Drug: SOLU-Medrol 125 mg Route: IVP; Site: right wrist; jb4 Outcome: 01:13 Decision to Hospitalize by Provider. pkl 03:19 Admitted to Med/surg accompanied by nurse, via stretcher, room 223, with chart, Report jb4 called to SAÚL Medrano 03:19 Condition: stable 03:19 Discharge instructions given to patient, Instructed on the need for admit, Demonstrated understanding of instructions. 03:20 Patient left the ED. jb4 Signatures: Dispatcher [employer] EDMS Erick Ro MD MD pkCalixto Dyer RN RN jb4 Fred Steel RN RN [id number] Cynthia Green RN RN ca1 Jing Mccullough cl3 Corrections: (The following items were deleted from the chart) 03/19 21:25 21:25 BP 159 / 78; Pulse 71bpm; Resp 20bpm; Spontaneous; Pulse Ox 99% RA; ca1 ca1 22:15 20:45 Respiratory: Reports shortness of breath at rest since yesterday Airway is patent ca1 Respiratory effort is even, unlabored, Respiratory pattern is regular, symmetrical, Breath sounds are clear bilaterally. Denies cough, ca1 23:02 22:54 Respiratory: Breath sounds are clear in left upper lobe, left lower lobe, left jb4 posterior upper lobe and left posterior lower lobe Breath sounds with wheezes in right upper lobe, right middle lobe, right lower lobe, right posterior upper lobe, right posterior middle lobe and right posterior lower lobe jb4 03/20 00:02 09 23:54 Reassessment: Patient appears in no apparent distress at this time. Patient jb4 and/or family updated on plan of care and expected duration. Pain level reassessed. Patient is alert, oriented x 3, equal unlabored respirations, skin warm/dry/pink. Patient states feeling better. jb4
[2020-03-20] MEDS ORDERED: METHYLPREDNISOLONE 125 MG INJ ONE (01:44)
--- NOTE | 2020-03-20 01:49 | P.HP ---
Certification for Inpatient Patient admitted to: Observation With expected LOS: <2 Midnights Patient will require the following post-hospital care: None Practitioner: I am a practitioner with admitting privileges, knowledge of patient current condition, hospital course, and medical plan of care. Services: Services provided to patient in accordance with Admission requirements found in Title 42 Section 412.3 of the Code of Federal Regulations <Apollo Patterson - Last Filed: 03/20/20 01:41> Patient admitted to: Observation <Nicholas Morris - Last Filed: 03/20/20 09:08> Patient History Date of Service: 03/20/20 Primary Care Provider: Unknown, Possible Dr. Calhoun Reason for admission: COPD exacerbation History of Present Illness: 59-year-old Afro Italian female with history of end-stage renal disease on chronic hemodialysis Monday, hypertension, coronary artery disease, COPD, history of CVA, chronic diastolic congestive heart failure, pulmonary hypertension presented the emergency department for shortness of breath. Patient reports that she did complete dialysis on Monday began feeling more short of breath yesterday. Patient was evaluated in the emergency department found to have expiratory wheezes, hypoxemia and mildly elevated D-dimer. ED provider wishes to admit patient for further evaluation and management. When I saw the patient in the emergency department she was awake, alert, oriented x4. Patient is extremely poor historian, unable to provide me with the name for primary care doctor. Patient thinks it may be Dr. Calhoun but could not be sure and I could not reach her family for confirmation. Patient be admitted for further evaluation and management under observation status. - Past Medical/Surgical History Diabetic: No -: Pulmonary hypertension -: COPD -: History of CVA (left side weakness) -: Hepatitis-C -: ESRD, dialysis Tuesdays, and Saturdays -: Anemia of chronic disease -: cardiac bypass 2014 -: Chronic diastolic congestive heart failure -: Non compliance -: YOLANDA fistula -: -: Cholecystectomy Psychosocial/ Personal History: Patient currently lives in apartment with her daughters. - Family History Mother -: Heart disease Sister -: Hypertension - Social History Smoking Status: Current every day smoker Alcohol use: Yes CD- Drugs: No Caffeine use: Yes Place of Residence: Home <Apollo Patterson - Last Filed: 03/20/20 01:41> Date of Service: 03/20/20 Home medications list reviewed: Yes <Nicholas Morris - Last Filed: 03/20/20 09:08> Allergies No Known Allergies Allergy (Verified 03/20/20 04:13) Home Medications: Albuterol Sulfate [Albuterol Sulfate Hfa] 8.5 gm IH BEDTIME 03/20/20 Aspirin [Anthony Chewable] 81 mg PO DAILY 03/20/20 Carvedilol [Coreg] 1 tab PO BID 03/20/20 Clonidine HCl [Catapres*] 1 tab PO BID 03/20/20 Isosorbide Mononitrate [Isosorbide Mononitrate ER] 30 mg PO DAILY 03/20/20 Omeprazole [Prilosec] 40 mg PO DAILY 03/20/20 Ramipril [Altace] 5 mg PO DAILY 03/20/20 Review of Systems 10-point ROS is otherwise unremarkable Respiratory: Cough, Shortness of Breath <Apollo Patterson - Last Filed: 03/20/20 01:41> Physical Examination - Physical Exam General: Alert, In no apparent distress, Oriented x3 HEENT: Atraumatic, Normocephalic, PERRLA, Mucous membr. moist/pink Neck: Supple Respiratory: Normal air movement, Expiratory wheezes Cardiovascular: Regular rate/rhythm, Normal S1 S2 Capillary refill: <2 Seconds Gastrointestinal: Normal bowel sounds, Soft and benign Musculoskeletal: No contractures, No erythema Integumentary: No significant lesion, No tenderness/swelling, No erythema Neurological: Normal speech, Normal strength at 5/5 x4 extr, Sensation intact - Studies Laboratory Data (last 24 hrs) 03/19/20 22:30: PT 13.9 H, INR 1.18 03/19/20 22:30: WBC 10.7, Hgb 10.8 L, Hct 32.6 L, Plt Count 163 03/19/20 22:30: Sodium 138, Potassium 3.3 L, BUN 13, Creatinine 3.73 H, Glucose 113 H, Magnesium 1.8 D, Total Bilirubin 0.5, AST 6 L, ALT 10 L, Alkaline Phosphatase 146 H <Apollo Patterson - Last Filed: 03/20/20 01:41> - Studies Laboratory Data (last 24 hrs) 03/19/20 22:30: PT 13.9 H, INR 1.18 03/19/20 22:30: WBC 10.7, Hgb 10.8 L, Hct 32.6 L, Plt Count 163 03/19/20 22:30: Sodium 138, Potassium 3.3 L, BUN 13, Creatinine 3.73 H, Glucose 113 H, Magnesium 1.8 D, Total Bilirubin 0.5, AST 6 L, ALT 10 L, Alkaline Phosphatase 146 H <Nicholas Morris - Last Filed: 03/20/20 09:08> Assessment and Plan - Plan Assessment Dyspnea, hypoxemia secondary to COPD exacerbation Chronic diastolic congestive heart failure End-stage renal disease on chronic hemodialysis Tobacco abuse History of CVA with left-sided weakness Plan Dyspnea, hypoxemia secondary to COPD exacerbation: Continue with steroids, nebulizers, oxygen as needed. Will obtain room air sats tomorrow morning. D- dimer also mildly elevated at 850. Based on vital signs and patient exam I doubt pulmonary embolism, if this needs to be investigated further patient would either need a VQ scan or arrangement for PE protocol prior to dialysis. Chronic diastolic congestive heart failure: Obtain and continue patient's home medications, last echocardiogram showed ejection fraction within normal limits. Obtain and continue patient's home medications. End-stage renal disease on chronic hemodialysis: Nephrology consulted patient is Monday dialysis patient patient has been compliant with dialysis thus far. Tobacco abuse: Counseled on need for tobacco cessation. History of CVA with left-sided weakness: Obtain and continue patient's home medications. Reports the patient is extremely poor historian and family is unavailable by phone at this time. Discharge Plan: Home Plan to discharge in: 24 Hours - Advance Directives Does patient have a Living Will: No Does patient have a Durable POA for Healthcare: No - Code Status/Comfort Care Code Status Assessed: Yes (Patient is full code) Critical Care: No Time Spent Managing Pts Care (In Minutes): 55 <Apollo Patterson - Last Filed: 03/20/20 01:41> - Plan Agree with plan of care and discussed with Apollo. Patient is seen by Dr. Calhoun who is the PCP. If contacted him. He will assume care of patient. Patient agrees. <Nicholas Morris - Last Filed: 03/20/20 09:08>
[2020-03-20] MEDS ORDERED: FUROSEMIDE 20 MG/ 2ML VIAL IV ONE (03:18)
[2020-03-20] MEDS ORDERED: ACETAMINOPHEN 500 MG TAB PO PRN (03:18)
[2020-03-20] MEDS ORDERED: ONDANSETRON 4 MG/2 ML VIAL IV PRN (03:18)
[2020-03-20] MEDS ORDERED: levoFLOXacin 500 MG TAB PO ONE (03:50)
[2020-03-20] MEDS: ALBUTEROL 2.5 MG/3 ML NEB SOL NEB SCH ×4 (04:15→19:55)
[2020-03-20] MEDS: IPRATROPIUM BROM 0.5MG/2.5ML NEB SCH ×4 (04:15→19:55)
[2020-03-20 04:51] LABS: Absolute Lymphocytes (CBC) 0.6 K/uL (0.7-4.9); Basophils % 0.2 % (0-1.3); Hematocrit 32.2 % (36.0-45.0); Lymphocytes % 6.2 % (15.3-44.8); RBC Red Blood Cell Count 3.73 M/uL (3.86-4.86)
[2020-03-20 06:56] LABS: Blood Morphology Comment NOT SEEN (NOT SEEN); Platelet Estimate ADEQ
--- NOTE | 2020-03-20 07:16 | RAD REPORT ---
EXAM DESCRIPTION: RAD - Chest Pa And Lat (2 Views) - 03/19/2020 8:51 pm CLINICAL HISTORY: SOB COMPARISON: Portable April 2019 TECHNIQUE: Frontal and lateral views of the chest were obtained. FINDINGS: The lungs are clear of a focal mass or consolidation. Vasculature and lung markings are i ncreased slightly from the prior study. Heart size is upper normal. Sternotomy wires are in place. He art size is normal and central vasculature is within normal limits. No pleural effusion or pneumotho rax seen. No acute bony finding noted. No aortic abnormality. IMPRESSION: Heart size is upper normal with vasculature and lung markings slightly increased over co mparison. Early failure/ volume overload is suspected. Lung markings are slightly more pronounced in the left base. Patient can be monitored for developing left base pneumonia as well.
[2020-03-20] MEDS: HEPARIN 5000 UNIT/ML 1 ML VIAL SQ SCH ×2 (08:32→23:01)
[2020-03-20] MEDS: METHYLPREDNISOLONE 40 MG INJ IV SCH ×2 (08:32→16:32)
[2020-03-20] MEDS ORDERED: levoFLOXacin 500 MG TAB PO SCH (09:00)
[2020-03-20] MEDS: DULERA 100/5 (MOMETASONE/FORMOTEROL) INHALER IH SCH ×2 (11:02→23:01)
[2020-03-20] MEDS: NICOTINE 21 MG/PAT TD SCH (17:42)
[2020-03-20] MEDS ORDERED: HEPARIN 10,000 UNIT/10 ML VIAL IV PRN (22:23)
[2020-03-20] MEDS ORDERED: MANNITOL 25% 12.5 GM/50 ML VIAL IV PRN (22:23)
[2020-03-20] MEDS ORDERED: NA CHLORIDE 0.9% 1,000 ML IV PRN (22:23)
--- NOTE | 2020-03-20 22:33 | P.CNS ---
Date of Consult: 03/20/20 Reason for Consult: ESRD Requesting Physician: George Calhoun Primary Care Provider: Unknown, Possible Dr. Calhoun Chief Complaint: COPD exacerbation History of Present Illness: 59-year-old Afro [place] female with history of end-stage renal disease on chronic hemodialysis Monday, hypertension, coronary artery disease, COPD, history of CVA, chronic diastolic congestive heart failure, pulmonary hypertension presented the emergency department for shortness of breath. Patient reports that she did complete dialysis on Monday began feeling more short of breath yesterday. Patient was evaluated in the emergency department found to have expiratory wheezes, hypoxemia and mildly elevated D- dimer. ED provider wishes to admit patient for further evaluation and management. 01:07 This 59 yrs old Black Female presents to ER via Ambulatory with complaints of Shortness pkl Of Breath. 01:07 The patient has shortness of breath at rest. Onset: The symptoms/episode began/occurred pkl yesterday. Allergies No Known Allergies Allergy (Verified 03/20/20 04:13) Home medications list reviewed: Yes Home Medications: Albuterol Sulfate [Albuterol Sulfate Hfa] 8.5 gm IH BEDTIME 03/20/20 Aspirin [Anthony Chewable] 81 mg PO DAILY 03/20/20 Carvedilol [Coreg] 1 tab PO BID 03/20/20 Clonidine HCl [Catapres*] 1 tab PO BID 03/20/20 Isosorbide Mononitrate [Isosorbide Mononitrate ER] 30 mg PO DAILY 03/20/20 Omeprazole [Prilosec] 40 mg PO DAILY 03/20/20 Ramipril [Altace] 5 mg PO DAILY 03/20/20 - Past Medical/Surgical History Diabetic: No -: Pulmonary hypertension -: COPD -: History of CVA (left side weakness) -: Hepatitis-C -: ESRD, dialysis Tuesdays, and Saturdays -: Anemia of chronic disease -: cardiac bypass 2014 -: Chronic diastolic congestive heart failure -: Non compliance -: YOLANDA fistula -: -: Cholecystectomy Psychosocial/ Personal History: Patient currently lives in apartment with her daughters. - Family History Mother Medical History: Heart disease Sister Medical History: Hypertension - Social History Smoking Status: Current every day smoker Alcohol use: Yes CD- Drugs: No Caffeine use: Yes Place of Residence: Home Review of Systems 10-point ROS is otherwise unremarkable General: Malaise Respiratory: Cough, SOB with Excertion Physical Examination Temp Pulse Resp BP Pulse Ox 97.2 F 65 19 166/70 H 94 03/20/20 16:00 03/20/20 16:00 03/20/20 16:00 03/20/20 16:00 03/20/20 16:00 General: In no apparent distress, Oriented x3, Cooperative HEENT: Atraumatic Neck: Supple Respiratory: Diminished Cardiovascular: Regular rate/rhythm, Edema Gastrointestinal: Soft and benign, Non-distended Musculoskeletal: No clubbing, No contractures Integumentary: No rashes, No cyanosis Neurological: Normal speech Laboratory Data (last 24 hrs) 03/19/20 22:30: PT 13.9 H, INR 1.18 03/19/20 22:30: WBC 10.7, Hgb 10.8 L, Hct 32.6 L, Plt Count 163 03/19/20 22:30: Sodium 138, Potassium 3.3 L, BUN 13, Creatinine 3.73 H, Glucose 113 H, Magnesium 1.8 D, Total Bilirubin 0.5, AST 6 L, ALT 10 L, Alkaline Phosphatase 146 H Imagings Data: EXAM DESCRIPTION: RAD - Chest Pa And Lat (2 Views) - 03/19/2020 8:51 pm CLINICAL HISTORY: SOB COMPARISON: Portable April 2019 TECHNIQUE: Frontal and lateral views of the chest were obtained. FINDINGS: The lungs are clear of a focal mass or consolidation. Vasculature and lung markings are increased slightly from the prior study. Heart size is upper normal. Sternotomy wires are in place. Heart size is normal and central vasculature is within normal limits. No pleural effusion or pneumothorax seen. No acute bony finding noted. No aortic abnormality. IMPRESSION: Heart size is upper normal with vasculature and lung markings slightly increased over comparison. Early failure/ volume overload is suspected. Lung markings are slightly more pronounced in the left base. Patient can be monitored for developing left base pneumonia as well. Conclusions/Impression: A/ ESRD on HD Hypokalemia HTN with CKD/ CHF Diastolic CHF, A/C. DM II with CKD Anemia in CKD HILARIO/ Secondary HyperPTH. Hypocalcemia. P/ Continue current POC and Medications. Acute HD as ordered with UF. Restart home medications as ordered. Steroid therapy. Oxygen prn. No NSAIDs. AM labs. Daily weight. Thank you kindly for the consultation.
[2020-03-20] MEDS ORDERED: ALBUMIN HUMAN 25% 50 ML IV SCH (23:00)
[2020-03-21] MEDS: METHYLPREDNISOLONE 40 MG INJ IV SCH ×2 (01:13→08:09)
[2020-03-21] MEDS: ALBUTEROL 2.5 MG/3 ML NEB SOL NEB SCH ×2 (02:20→07:37)
[2020-03-21] MEDS: IPRATROPIUM BROM 0.5MG/2.5ML NEB SCH ×2 (02:20→07:37)
[2020-03-21 06:02] VITALS: BMI 31.4
[2020-03-21 06:36] LABS: Absolute Lymphocytes (CBC) 0.7 K/uL (0.7-4.9); Basophils % 0.2 % (0-1.3); Hematocrit 31.4 % (36.0-45.0); Lymphocytes % 4.6 % (15.3-44.8); MPV 9.2 fL (7.6-11.3); RBC Red Blood Cell Count 3.63 M/uL (3.86-4.86)
[2020-03-21] MEDS: HEPARIN 5000 UNIT/ML 1 ML VIAL SQ SCH (08:09)
[2020-03-21] MEDS: NICOTINE 21 MG/PAT TD SCH (08:10)
[2020-03-21 08:12] LABS: Blood Morphology Comment NOT SEEN (NOT SEEN); Platelet Estimate ADEQ; White Blood Cell Scan OK (OK)
[2020-03-21] MEDS: DULERA 100/5 (MOMETASONE/FORMOTEROL) INHALER IH SCH (08:18)
--- NOTE | 2020-03-21 09:02 | P.DS ---
Admission Date: 03/20/20 Discharge Date: 03/21/20 Primary Care Provider: Unknown, Possible Dr. Calhoun Disposition: ROUTINE DISCHARGE Discharge Condition: GOOD Reason for Admission: COPD exacerbation - Problems (1) COPD exacerbation Current Visit: Yes Status: Acute (2) CHF (congestive heart failure) Current Visit: Yes Status: Chronic Qualifiers: Heart failure type: systolic Heart failure chronicity: chronic Qualified Code(s): I50.22 - Chronic systolic (congestive) heart failure (3) ESRD (end stage renal disease) on dialysis Onset Date: 01/06/16 Current Visit: No Status: Chronic (4) Tobacco abuse Onset Date: 01/25/18 Current Visit: No Status: Chronic Brief History of Present Illness: Patient was admitted by the hospitalist for copd exacerbation. She did well with steroids. Please see hospitalist note. Hospital Course: Patient is doing well. Will test her for cocaine as she his been in the past. Have councilled smoking cessation. Will have her follow up in the office in the week. Will discharge after dialysis Vital Signs/Physical Exam: Temp Pulse Resp BP Pulse Ox 97.4 F 70 20 161/72 H 99 03/21/20 04:00 03/21/20 04:00 03/21/20 04:00 03/21/20 04:00 03/21/20 04:00 Laboratory Data at Discharge: WBC 14.3 K/uL (4.3-10.9) H D 03/21/20 06:07 Hgb 10.2 g/dL (12.0-15.0) L 03/21/20 06:07 Hct 31.4 % (36.0-45.0) L 03/21/20 06:07 Plt Count 173 K/uL (152-406) 03/21/20 06:07 PT 13.9 SECONDS (9.5-12.5) H 03/19/20 22:30 INR 1.18 03/19/20 22:30 Sodium 134 mmol/L (136-145) L 03/21/20 06:07 Potassium 4.0 mmol/L (3.5-5.1) 03/21/20 06:07 BUN 42 mg/dL (7-18) H D 03/21/20 06:07 Creatinine 6.35 mg/dL (0.55-1.3) H* D 03/21/20 06:07 Glucose 163 mg/dL (74-106) H 03/21/20 06:07 Magnesium 1.8 mg/dL (1.8-2.4) D 03/19/20 22:30 Total Bilirubin 0.5 mg/dL (0.2-1.0) 03/19/20 22:30 AST 6 U/L (15-37) L 03/19/20 22:30 ALT 10 U/L (12-78) L 03/19/20 22:30 Alkaline Phosphatase 146 U/L (45-117) H 03/19/20 22:30 Home Medications: Albuterol Sulfate [Albuterol Sulfate Hfa] 8.5 gm IH BEDTIME 03/20/20 Aspirin [Anthony Chewable] 81 mg PO DAILY 03/20/20 Carvedilol [Coreg] 1 tab PO BID 03/20/20 Clonidine HCl [Catapres*] 1 tab PO BID 03/20/20 Isosorbide Mononitrate [Isosorbide Mononitrate ER] 30 mg PO DAILY 03/20/20 Omeprazole [Prilosec] 40 mg PO DAILY 03/20/20 Ramipril [Altace] 5 mg PO DAILY 03/20/20 Nicotine [Nicotine Patch] 1 each TD DAILY #14 patch.[email or web address] 03/21/20 Prednisone [Sterapred Ds] 10 mg PO BID #21 tab.ds.pk 03/21/20 New Medications: Nicotine [Nicotine Patch] 1 each TD DAILY #14 patch.[email or web address] Prednisone [Sterapred Ds] 10 mg PO BID #21 tab.ds.pk Followup: George Calhoun MD [ACTIVE - CAN ADMIT] - 1 Week
[2020-03-21 09:28] VITALS: O2SAT 96
[2020-03-21 12:23] VITALS: BP 161/74; TEMP 97.2
== END 2020-03-21 16:05 | disposition home or self-care (01) ==
LOC: ER 19:19 → ERHOLD 03-20 01:41 → 2ND 03-20 02:44
PROVIDERS: ADMIT Internal Medicine; ATTEND Internal Medicine
DX: J44.1 Chronic obstructive pulmonary disease with (acute) exacerbation (principal); I13.2 Hypertensive heart and chronic kidney disease with heart failure and with stage 5 chronic kidney disease, or end stage renal disease; E11.22 Type 2 diabetes mellitus with diabetic chronic kidney disease; N18.6 End stage renal disease; I50.23 Acute on chronic systolic (congestive) heart failure; Z99.2 Dependence on renal dialysis; D63.1 Anemia in chronic kidney disease; R09.02 Hypoxemia; E87.6 Hypokalemia; E21.1 Secondary hyperparathyroidism, not elsewhere classified; I27.20 Pulmonary hypertension, unspecified; I25.10 Atherosclerotic heart disease of native coronary artery without angina pectoris; F03.90 Unspecified dementia, unspecified severity, without behavioral disturbance, psychotic disturbance, mood disturbance, and anxiety; I69.954 Hemiplegia and hemiparesis following unspecified cerebrovascular disease affecting left non-dominant side; B19.20 Unspecified viral hepatitis C without hepatic coma; G47.33 Obstructive sleep apnea (adult) (pediatric); I38 Endocarditis, valve unspecified; M19.90 Unspecified osteoarthritis, unspecified site; F17.210 Nicotine dependence, cigarettes, uncomplicated; Z71.6 Tobacco abuse counseling; Z91.19 Patient's noncompliance with other medical treatment and regimen; Z79.82 Long term (current) use of aspirin; Z95.1 Presence of aortocoronary bypass graft; Z90.49 Acquired absence of other specified parts of digestive tract; Z82.49 Family history of ischemic heart disease and other diseases of the circulatory system
CPT/HCPCS: 93005; 87040 ×2; 85025 ×3; 80048 ×3; 36415 ×2; 83735; 85610; 82947; 85379; 80076; 84484; 84145; 83880; 71046; 90935; 94640; 82805; 96374; 99285; U0003; J1940; J1644 ×4; J2930; J2920 ×4; G0378 ×3; J7606

== ENCOUNTER 2020-03-24 03:46 | Emergency (ER) | payer OTHER ==
--- OUTSIDE RECORDS SUMMARY | 2020-03-24 03:48 | XMS REPORT | Clinical Summary ---
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 Shelf Model / Identifier Expiration Serial / Lot Date Grft Hemshld Dbl Jarrod 2.0x6.0in [id number] - [id number] Graft/Pat GETINGE 01/30/2019 [id number] / Implanted: Qty: 1 on 01/25/2016 by Sherif Bañuelos MD c h IND:MAFLOYD:CV / [id number] Results Not on fileafter 03/24/2019 Insurance Payer Benefit Plan / Group Subscriber ID Type Phone A ddress [employer] [facility] [employer] xxxxxxxxx [facility] MEDICAID [place] xxxxxxxxx Medicaid Advance Directives For more information, please contact:[address] [phone] Code Status Date Activated Date Inactivated Comments Full Code 01/23/2016 1:38 PM 02/06/2016 8:06 PM This code status was determined by: Patient Full Code 01/18/2016 10:03 AM 01/18/2016 10:53 AM This code status was determined by: Patient Full Code 01/16/2016 3:39 AM 01/18/2016 10:03 AM This code status was determined by: Patient
--- OUTSIDE RECORDS SUMMARY | 2020-03-24 03:50 | XMS REPORT | Continuity of Care Document ---
:1960 Author Organization [id number] Care Team Providers Name Role Phone [email or web address] Unavailable Un available Problems Problem Status Onset Classification Date Comments Sourc e Date Reported Hypertensive heart 07/12/19 01/17/2019 [facility] and chronic kidney 19 edical disease with heart C enter failure and with stage 5 chronic kidney disease, or end stage renal disease KIDNEY FAILURE Active 06/24/20 Tucker forrester [address] [place] [address] ISCHEMIC STROKE Active 01/09/[address] NUMBNESS Active 01/09/[address] Methicillin Active 06/11/20 Problem 01/17/2019 06/11/09 Nares- MRSA by PCR [facility] resistant 09 Problem added by Dis cern Expert. Medical Staphylococcus Terri nava, aureus (organism) [facility] Cerebral 01/13/2017 infarction, [facility] End stage renal 01/17/2019 [facility] Chronic diastolic 01/17/2019 [facility] [place] (congestive) heart edical failure Center Acidosis 01/17/2019 [facility] Unspecified 01/17/2019 Madelaine king protein-calorie Medi shreya malnutrition Center Cocaine use, 01/17/2019 Niels as unspecified, Medical uncomplicated Center Patient's 01/17/2019 [facility] noncompliance with edical other medical Center treatment and regimen Nicotine 01/17/2019 [facility] dependence, Medical cigarettes, Center uncomplicated Bipolar disorder, 01/17/2019 [facility] unspecified Medical Center Chronic 01/17/2019 [facility] obstructive Medical pulmonary disease, C enter unspecified Chronic viral 01/17/2019 Tucker forresetr hepatitis C [facility] Center Hyperkalemia 01/17/2019 N[facility] as Medical Center Hypertensive 01/17/2019 Niels as urgency Medical Center Anemia in chronic 01/17/2019 [facility] kidney disease Medic al Center Patient's 01/17/2019 [facility] noncompliance with edical renal dialysis Terri nava Vascular dementia 01/17/2019 [facility] without behavioral edical disturbance Center Dementia in other 01/17/2019 [facility] diseases Medical classified Center elsewhere without behavioral disturbance Hepatic failure, 01/17/2019 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 (disorder) Medical [place],[facility] Chronic kidney Resolved Problem 01/17/2019 [place] disease (disorder) M edical Center,[facility] Chronic Resolved Problem 01/17/2019 [facility] obstructive lung Med ical disease (disorder) C enter,[facility] Cerebrovascular Resolved Problem 01/17/2019 [facility] accident Medical (disorder) Center,[facility] Dialysis finding Resolved Problem 01/17/2019 started [facility] (finding) approx Medical 2014 Center,[facility] Disease of Resolved Problem 01/17/2019 [facility] gallbladder Medical (disorder) Center,[facility] Acute myocardial Resolved Problem 01/17/2019 [facility] infarction Medical (disorder) Center,[facility] Viral hepatitis C Resolved Problem 01/17/2019 [facility] [place] [facility] (disorder) Medical [place],[facility] Hypertensive Resolved Problem 01/17/2019 [place] as disorder, systemic edical arterial Center, (disorder) [facility] Simple obesity Active Problem 01/17/2019 [facility] [place] (disorder) Medical [place],[facility] Smoker (finding) Resolved Problem 01/17/2019 [facility] CEREBRAL Active INFARCTION, [facility] UNSPECIFIED [facility] ILLNESS, Active UNSPECIFIED [facility] Medications Medication Details Route Status Patient [...] No Longer [place] as as: Norvasc) Active [address] [place] [address] Insulin regular 60 units) Inactive [place] WASTE: F/P - 2018 Medical Black; E - Center Municipal Trash Bin Stable for 28 days at room temperature Expires in days from D ate Glucagon 1 mg, Route: Inactive [place] IM, Drug form: 2018 Medical PDR/INJ, PRN, Center Dosing Weight 45.085, kg, PRN Blood Glucose Results, Start date: 06/25/18 6:22:00 UTILIZATION MANAGER, Duration: 30 day, Stop date: 07/25/18 6:21:00 UTILIZATION MANAGER Dextrose 50% 12.5 gm, 25 mL, Inactive [place] Syringe Route: IVP, 2017 Medical Drug Form: INJ, [place] Dosing Weight 45.085, kg, PRN, PRN Blood Glucose Results, Start date: 06/25/18 6:22:00 UTILIZATION MANAGER, Duration: 30 day, Stop date: 07/25/18 6:21:00 UTILIZATION MANAGER NIFEdipine 30 Notes: (Same Inactive [place] mg oral tablet, as: Adalat CC, 2017 edical extended Procardia XL) Center release Give on empty stomach. Take 1 hour before or 2 hours after meal; "Avoid grapefruit and grapefruit juice". Do not crush Saline Flush Notes: (Same No Longer [place] 0.9% as: BD Active [address] [place] [address] Posiflush) [place] sennosides, MCC Notes: (Same No Longer [place] as: Senokot) Active [address] [place] [address] NIFEdipine 30 Notes: (Same Inactive [place] mg oral tablet, as: Adalat CC, 2017 edical extended Procardia XL) Center release Give on empty stomach. Take 1 hour before or 2 hours after meal; "Avoid grapefruit and grapefruit juice". Do not crush Docusate Notes: (Same No Longer [place] as: Colace) Active [address] [place] [address] heparin sodium, Notes: porcine No Longer [place] porcine 2500 heparin Active 2017 [facility] UNT/ML [place] Injectable Solution Cardene 40 mg Notes: Same as: No Longer [place] in NS 200 mL Cardene Active 2017 Medical (Titrate.) IV Concentration: Francisco ter 40 mg (0.2 mg /1 ml ) sevelamer 800 mg = 1 tab, No Longer [place] carbonate 800 PO, 0 Refill(s) Active 2017 [place] dical MG Oral Tablet Center [Renvel] amLODIPine [...] [place] UNT/MG Topical as:Mycostatin, Active 2017 [place] dical Powder Nilstat) For Center external use only. atorvastatin Notes: (Same No Longer As: Lipitor) Active 2016 [facility] aspirin 81 mg 81 mg = 1 tab, Active tablet, enteric PO, Daily, # 30 2017 [facility] coated tab, 0 City Refill(s) atorvastatin 10 10 mg = 1 tab, Active H mg oral tablet PO, Bedtime, # 2017 [place] morial 30 tab, 0 City Refill(s) heparin Notes: porcine No Longer heparin Active 2016 [facility] gabapentin 100 Notes: (Same No Longer MG Oral Capsule as: Neurontin) Active [address] [facility] Saline Flush 10 ml, Route: Inactive 0.9% IVP, Drug Form: [address] [place] [address] INJ, Dosing City Weight 76.007, kg, Q12H, Start date: 01/08/17 21:00:00 CDT, Duration: 30 day, Stop date: 02/07/17 9:00:00 CDT Hydroxyzine Notes: (Same No Longer as: Atarax) Active [address] [place] [address] Avoid alcohol. [facility] ARIPiprazole Notes: No Longer Non-Formulary Active [address] [place] [address] Drug. (Same City as: Abilify) Amlodipine Notes: (Same No Longer as: Norvasc) Active 2016 [facility] Sertraline Notes: (Same No Longer as: Zoloft) Active 2016 [facility] Clonidine Notes: (Same No Longer Hydrochloride As: Catapres) Active 2016 [place] rial 0.2 MG Oral [facility] Tablet 200 ACTUAT Notes: SEE RT No Longer Albuterol 0.09 DOCUMENTATION Active 2016 Mem orial MG/ACTUAT (Same as: [facility] Metered Dose Proventil) Inhaler [ProAir HFA] Hydralazine Notes: (Same No Longer as: Apresoline) Active 2016 [facility] Push over 5 [facility] minutes Clonidine 0.1 mg = 0.5 Active Hydrochloride tab, PO, TID, 0 2016 [place] morial 0.2 MG Oral Refill(s) [facility] Tablet ARIPiprazole 10 10 mg = 1 tab, Active H mg oral tablet PO, Daily, # 30 2016 [facility] tab, 0 [facility] Refill(s) Amlodipine 10 mg, PO, Active Daily, 0 2016 [facility] Refill(s) [facility] sertraline 50 50 mg = 1 tab, Active mg oral tablet PO, Daily, 0 2016 [place] rial Refill(s) [facility] gabapentin 100 300 mg = 3 cap, Active H MG Oral Capsule PO, Bedtime, 0 2016 [facility] Refill(s) [facility] Hydroxyzine 50 mg, PO, TID, Active 0 Refill(s) 2016 [facility] Enoxaparin Notes: (Same No Longer as: Lovenox) Active 2016 [facility] aspirin 81 mg Notes: Do not No Longer tablet, enteric crush or chew. Active 2016 [facility] coated (Same As: [facility] Ecotrin) Famotidine Notes: (Same No Longer as: Pepcid) Active 2016 [facility] Sodium Chloride 25 mL, Route: No Longer 0.9% IV IVP, Start Active [address] [place] [address] date: 01/08/17 [facility] 16:48:00 CDT, Duration: 30 day, Stop date: 02/07/17 16:47:00 CDT, PRN Line Flush BD Normal Notes: (Same No Longer Saline Flush as: BD Active 2016 [facility] Posiflush) [facility] BD Normal Notes: (Same No Longer Saline Flush as: BD Active 2016 [facility] Posiflush) [facility] Saline Flush 10 ml, Route: Inactive 0.9% IVP, Drug Form: 2016 [facility] INJ, Dosing [facility] Weight 76.007, kg, PRN, PRN Line Flush, [...] Jimenez Madelaine king 13-valent vaccine 7 deltoid [facility] tetanus-diphtheri Right completed Katya [facility] a toxoids 9 [facility] Results Order Name Results Value Reference Date Interpretation Comments Rula rce Range CHEM PANEL Magnesium 2.2 1.8 - 2.4 06/30 [facility] CHEM PANEL Phosphorus 4.6 2.5 - 4.5 06/30 [facility]2017 [facility] CHEM PANEL eGFR 8 06/30 Result Comment: [...] PANEL ALT 15 0 - 65 06/[address] CHEM PANEL AST 14 0 - 37 06/[address] CHEM PANEL Globulin 3.8 2.7 - 4.2 06/[address] CHEM PANEL A/G Ratio 0.8 0.7 - 1.6 06/[address] CHEM PANEL Albumin Lvl 3.2 3.5 - 5.0 06/30 [facility] CHEM PANEL Total 7.0 6.4 - 8.4 06/30 [facility] Protein [facility] CHEM PANEL B/C Ratio 8 6 - 25 06/[address] CHEM PANEL Bili Total 0.5 0.2 - 1.3 06/[address] CHEM PANEL Alk Phos 130 39 - 136 06/[address] CHEM PANEL Glucose Lvl 88 70 - 99 06/[address] CHEM PANEL BUN 48 7 - 22 06/[address] CHEM PANEL Calcium Lvl 8.0 8.5 - 10.5 06/30 [facility] CHEM PANEL AGAP 13.5 10.0 - 06/30 [place] 20.0 [facility] CHEM PANEL Chloride Lvl 104 95 - 109 06/30 [facility] CHEM PANEL CO2 24 24 - 32 06/[address] CHEM PANEL Creatinine 5.89 0.50 - 06/30 [place] Lvl 1.40 [facility] CHEM PANEL Sodium Lvl 137 135 - 145 06/[address] CHEM PANEL Potassium 4.5 3.5 - 5.1 06/30 [place] Lvl /2017 [facility] HEMATOLOGY MCH 27.7 27.0 - 06/30 [place] 31.0 [facility] HEMATOLOGY Hct 28.3 36.0 - 06/30 [place] 48.0 [facility] HEMATOLOGY MCV 85.6 80.0 - 06/30 [place] 98.0 [facility] HEMATOLOGY MCHC 32.3 32.0 - 06/30 [place] 36.0 [facility] HEMATOLOGY RDW 16.0 11.5 - 06/30 [place] 14.5 /2017 [facility] HEMATOLOGY Platelet 141 133 - 450 06/30 [facility]2017 [facility] HEMATOLOGY MPV 8.5 7.4 - 10.4 06/30 [facility] /[address] [place] [address] HEMATOLOGY WBC 4.4 3.7 - 10.4 06/30 [facility] /2018 [facility] HEMATOLOGY RBC 3.31 4.20 - 06/30 [place] 5.40 [facility] HEMATOLOGY Hgb 9.2 12.0 - 06/30 [place] 16.0 [facility] HEMATOLOGY Monocytes # 0.9 0.0 - 0.8 06/30 [place] /2017 [facility] HEMATOLOGY Anisocyte 1+ None Seen 06/30 [facility] *ABN* /2017 [facility] (06/30/18 5:16 AM) Cente r HEMATOLOGY Eosinophils 0.1 0.0 - 0.5 06/30 [facility] s # /2018 [facility] HEMATOLOGY Target Cell Slight 06/[address] HEMATOLOGY Monocytes 20.2 2.0 - 12.0 06/[address] HEMATOLOGY Basophils 0.9 0.0 - 1.0 06/[address] HEMATOLOGY Lymphocytes 32.1 20.0 - 06/30 [place] 40.0 [facility] HEMATOLOGY Eosinophils 1.2 0.0 - 4.0 06/30 [facility] s /[address] [place] [address] HEMATOLOGY Neutrophils 2.0 1.5 - 8.1 06/30 [facility] s # /2018 [facility] HEMATOLOGY Lymphocytes 1.4 1.0 - 5.5 06/30 [facility] s # /[address] [place] [address] HEMATOLOGY Segs 45.6 45.0 - 06/30 [facility] 75.0 [facility] HEMATOLOGY Plt Morph Normal 06/30 [facility] (06/30/18 5:16 AM) /2017 [facility] ANEMIA Iron 61 30 - 160 06/29 [facility] STUDY /2018 [facility] ANEMIA TIBC 223 228 - 428 06/29 [facility] /[address] [place] [address] ANEMIA UIBC 162 110 - 370 06/29 [facility] /2017 [facility] ANEMIA % Satur Fe 27 12 - 57 06/29 [facility] /[address] [place] [address] ANEMIA Ferritin Lvl 428 5 - 204 06/[address] CHEM PANEL Phosphorus 3.6 2.5 - 4.5 06/[address] CHEM PANEL Magnesium 2.2 1.8 - 2.4 06/29 [facility] /[address] [place] [address] CHEM PANEL Bili Total 0.5 0.2 - 1.3 06/29 [facility] CHEM PANEL Alk Phos 140 39 - 136 06/29 [facility] CHEM PANEL AST 13 0 - 37 06/29 [facility] CHEM PANEL ALT 14 0 - 65 06/29 [facility] CHEM PANEL eGFR 13 06/29 Result Comment: [...] Albumin Lvl 3.0 3.5 - 5.0 06/29 [facility] CHEM PANEL Total 7.1 6.4 - 8.4 06/29 [facility] CHEM PANEL Chloride Lvl 104 95 - 109 06/29 [facility] CHEM PANEL Calcium Lvl 7.6 8.5 - 10.5 06/29 [facility] CHEM PANEL CO2 25 24 - 32 06/29 [facility]2017 [facility] CHEM PANEL Potassium 4.2 3.5 - 5.1 06/29 [facility] CHEM PANEL Sodium Lvl 138 135 - 145 06/29 [facility]2017 [facility] CHEM PANEL Glucose Lvl 95 70 - 99 06/29 [facility]2017 [facility] CHEM PANEL BUN 30 7 - 22 06/29 [facility]2017 [facility] CHEM PANEL Creatinine 4.15 0.50 - 06/29 [facility] 1.40 [facility] CHEM PANEL AGAP 13.2 10.0 - 06/29 [place] 20.0 [facility] CHEM PANEL A/G Ratio 0.7 0.7 - 1.6 06/[address] CHEM PANEL Globulin 4.1 2.7 - 4.2 06/[address] CHEM PANEL B/C Ratio 7 6 - 25 06/[address] HEMATOLOGY MPV 8.2 7.4 - 10.4 06/[address] HEMATOLOGY RDW 16.5 11.5 - 06/29 [place] 14.5 [facility] HEMATOLOGY Platelet 131 133 - 450 06/[address] HEMATOLOGY MCV 85.3 80.0 - 06/29 [facility] 98.0 [facility] HEMATOLOGY MCH 27.9 27.0 - 06/29 [place] 31.0 [facility] HEMATOLOGY MCHC 32.7 32.0 - 06/29 [facility] 36.0 /2017 [facility] HEMATOLOGY RBC 3.40 4.20 - 06/29 [place] 5.40 /2017 [facility] HEMATOLOGY Hgb 9.5 12.0 - 06/29 [place] 16.0 [facility] HEMATOLOGY WBC 5.3 3.7 - 10.4 06/[address] HEMATOLOGY Hct 29.0 36.0 - 06/29 [place] 48.0 [facility] HEMATOLOGY Retic Auto 1.6 0.5 - 1.5 06/29 [facility]2017 [facility] HEMATOLOGY Monocytes 20.2 2.0 - 12.0 06/[address] HEMATOLOGY Segs 50.7 45.0 - 06/29 [place] 75.0 [facility] HEMATOLOGY Lymphocytes 27.3 20.0 - 06/29 [place] 40.0 [facility] HEMATOLOGY Monocytes # 1.1 0.0 - 0.8 06/29 [place] /2018 [facility] HEMATOLOGY Eosinophils 0.1 0.0 - 0.5 06/29 [place] # /2017 [facility] HEMATOLOGY Basophils 0.7 0.0 - 1.0 06/[address] HEMATOLOGY Neutrophils 2.7 1.5 - 8.1 06/29 [place] # /2018 [facility] HEMATOLOGY Eosinophils 1.1 0.0 - 4.0 06/29 [place] /2018 [facility] HEMATOLOGY Lymphocytes 1.5 1.0 - 5.5 06/29 [place] [facility] CHEM PANEL Magnesium 2.2 1.8 - 2.4 06/28 [facility] CHEM PANEL Phosphorus 4.1 2.5 - 4.5 06/28 [facility]2017 [facility] CHEM PANEL eGFR 6 06/28 Result Comment: [...] PANEL CO2 25 24 - 32 06/28 [facility] CHEM PANEL Glucose Lvl 94 70 - 99 06/28 [facility]2017 [facility] CHEM PANEL BUN 49 7 - 22 06/[address] CHEM PANEL Potassium 4.3 3.5 - 5.1 06/28 [facility] CHEM PANEL Creatinine 7.38 0.50 - 06/28 [facility] Lvl 1.40 [facility] CHEM PANEL Sodium Lvl 136 135 - 145 06/28 [facility]2017 [facility] CHEM PANEL Chloride Lvl 103 95 - 109 06/28 [place] [facility] CHEM PANEL Albumin Lvl 3.1 3.5 - 5.0 06/28 [place] [facility] CHEM PANEL Calcium Lvl 7.6 8.5 - 10.5 06/28 [place] [facility] CHEM PANEL Total 6.9 6.4 - 8.4 06/28 [facility] CHEM PANEL AST 13 0 - 37 06/[address] CHEM PANEL Alk Phos 125 39 - 136 06/[address] CHEM PANEL ALT 11 0 - 65 06/28 [facility] CHEM PANEL Bili Total 0.5 0.2 - 1.3 06/28 [facility] CHEM PANEL Globulin 3.8 2.7 - 4.2 06/28 2017 [facility] CHEM PANEL B/C Ratio 7 6 - 25 06/28 2017 [facility] CHEM PANEL A/G Ratio 0.8 0.7 - 1.6 06/28 2017 [facility] CHEM PANEL AGAP 12.3 10.0 - 06/28 [place] 20.0 [facility] HEMATOLOGY MPV 8.5 7.4 - 10.4 06/28 [facility] HEMATOLOGY Platelet 145 133 - 450 06/28 [facility] HEMATOLOGY RDW 16.0 11.5 - 06/28 [place] 14.5 [facility] HEMATOLOGY MCHC 31.5 32.0 - 06/28 [place] 36.0 [facility] HEMATOLOGY MCH 26.9 27.0 - 06/28 [place] 31.0 [facility] HEMATOLOGY MCV 85.6 80.0 - 06/28 [place] 98.0 [facility] HEMATOLOGY Hct 29.4 36.0 - 06/28 [place] 48.0 [facility] HEMATOLOGY RBC 3.43 4.20 - 06/28 [place] 5.40 [facility] HEMATOLOGY WBC 5.1 3.7 - 10.4 06/28 /2017 [facility] HEMATOLOGY Hgb 9.2 12.0 - 06/28 [place] 16.0 2018 [facility] HEMATOLOGY Basophils # 0.1 0.0 - 0.2 06/28 [place] /2017 [facility] HEMATOLOGY Eosinophils 0.1 0.0 - 0.5 06/28 [place] # /2017 [facility] HEMATOLOGY Monocytes # 0.9 0.0 - 0.8 06/28 [place] /2018 [facility] HEMATOLOGY Monocytes 17.7 2.0 - 12.0 06/28 [place] [facility] HEMATOLOGY Segs 52.2 45.0 - 06/28 [place] 75.0 [facility] HEMATOLOGY Lymphocytes 27.8 20.0 - 06/28 [place] 40.0 /2018 [facility] HEMATOLOGY Lymphocytes 1.4 1.0 - 5.5 06/28 [place] # /2017 [facility] HEMATOLOGY Neutrophils 2.7 1.5 - 8.1 06/28 [place] # /2017 [facility] HEMATOLOGY Basophils 1.0 0.0 - 1.0 06/28 [facility] HEMATOLOGY Eosinophils 1.3 0.0 - 4.0 06/28 [facility] s /2017 [facility] AMINO ACID MMA Qnt 589 0 - 378 06/27 [facility] /[address] [place] [address] AMINO ACID Homocyst Tot 40.6 0.0 - 15.0 06/27 [place] [facility] ANEMIA Vitamin B12 521 254 - 1320 06/27 [facility] STUDY Lvl [facility] CHEM PANEL Ammonia 29.0 <=45.0 06/27 [facility] uMol/L [facility] IMMUNOLOGY RPR Non-Reactive Non 06/27 [facility] (06/27/18 1:12 PM) [facility] MOLECULAR HCV RNA <1.2 06/26 [facility] DIAGNOSTIC Log10 [facility] MOLECULAR HCV RNA Not Detected 06/26 [facility] DIAGNOSTIC [facility] (06/26/18 2:58 PM) [facility] URINE AND UA <=1.0 0.1 - 1.0 06/26 [facility] STOOL Urobilinogen mg/dL [facility] URINE AND UA WBC 2 0 - 5 06/26 [facility] [address] [place] [address] URINE AND UA Leuk Est Negative Negative 06/26 [facility] (06/26/18 8:03 AM) [facility] URINE AND UA Nitrite Negative Negative 06/26 [facility] (06/26/18 8:03 AM) [facility] URINE AND UA Sq Epi None Seen 06/26 [facility] URINE AND UA RBC <1 0 - 2 06/26 [facility] [address] [place] [address] URINE AND UA Glucose Negative Negative 06/26 [facility] STOOL mg/dL mg/dL [facility] URINE AND UA Protein 50 mg/dL Negative 06/26 [facility] STOOL mg/dL [facility] URINE AND UA Blood Negative Negative 06/26 [facility] (06/26/18 8:03 AM) [facility] URINE AND UA pH 7.5 5.0 - 8.0 06/26 [facility] /[address] [place] [address] URINE AND UA Bili Negative Negative 06/26 [facility] STOOL *NA* /2017 [facility] (06/26/18 8:03 AM) Cente r URINE AND UA Ketones Negative Negative 06/26 [facility] STOOL mg/dL mg/dL [facility] URINE AND UA Color Light Yellow Yellow 06/26 [facility] STOOL *NA* Medical (06/26/18 8:03 AM) [facility] URINE AND UA Spec Grav 1.004 <=1.030 06/26 [facility] STOOL /2017 [facility] URINE AND UA Turbidity Clear Clear 06/26 [facility] STOOL (06/26/18 8:03 AM) [facility] IMMUNOLOGY Hep Bs Ab 66.7 <=7.4 06/24 [place] mIU/mL [facility] [facility] IMMUNOLOGY Hep C Ab Positive 06/24 [place] *ABN* Medical (06/24/18 1:39 PM) [place] IMMUNOLOGY Hep B Core Negative Negative 06/24 [place] Ab *NA* Medical (06/24/18 1:39 PM) [place] IMMUNOLOGY Hep B Core Negative Negative 06/24 [facility] IgM *NA* Medical (06/24/18 1:39 PM) [place] IMMUNOLOGY Hep Bs Ag Negative Negative 06/24 [place] *NA* /2017 Medical (06/24/18 1:39 PM) [place] [facility] BACTERIAL - MRSA by PCR Negative [facility]06/24/18 1:05 PM) [facility] CARDIAC Troponin-I 0.05 0.00 - 06/24 [facility] ENZYMES 0.40 /2017 [facility] CARDIAC BNP 1954 <=100 06/24 [facility] ENZYMES pg/mL [facility] CARDIAC proBNP 83738 0 - 125 06/24 [facility] ENZYMES /2017 [facility] CHEM PANEL Bili Direct 0.1 0.0 - 0.3 06[place]2017 [facility] CHEM PANEL Bili 0.8 0.0 - 1.0 06/24 [place] Indirect /2017 [facility] HEMATOLOGY PTT 36.4 22.9 - 06/24 [place] 35.8 [facility] HEMATOLOGY PT 15.4 12.0 - 06/24 [place] 14.7 [facility] HEMATOLOGY INR 1.24 0.85 - 06/24 [place] 1.17 [facility] HEMATOLOGY Basophils # 0.1 0.0 - 0.2 06[place] [facility] IMMUNOLOGY HIV Ag/Ab Negative Negative 06/24 [facility] 4th Gen *NA* /2017 Medical (06/24/18 1:05 PM) Cente r MOLECULAR Influenza A Negative Negative 06/24 [facility] DIAGNOSTIC PCR (06/24/18 1:05 PM) /2017 [facility] MOLECULAR Source Flocked MIXER WHIPPED TOPPING Swab 06/24 [place] DIAGNOSTIC Respiratory (06/24/18 1:05 PM) Medical [facility] PCR Center MOLECULAR Influenza B Negative Negative 06/24 [facility] DIAGNOSTIC PCR (06/24/18 1:05 PM) /[facility] RSV PCR Negative Negative 06/24 [facility] DIAGNOSTIC (06/24/18 1:05 PM) /2017 [facility] PARATHYROID Ca Ion WB 0.92 1.05 - 06/24 [place] PROFILE . [facility] PARATHYROID Ca Norm WB 0.86 1.05 - 06/24 Result [facility] 07.27 Comment: [facility] RESULT CALLED TO SHERRI BELLA AT 06/24/2018 15:42 BY SXP. READ BACK OK. SPECIAL Hgb A1C <3.5 % <=5.6 % 06/24 [facility] CHEMISTRY /2017 [facility] CHEM PANEL eGFR 14 01/10 Result Comment: The [facility] eGFR is City calculated using the [...] Creatinine 3.84 0.50 - 01/10 Lvl 1.40 [facility] CHEM PANEL Calcium Lvl 8.3 8.5 - 10.5 01/10 [facility] CHEM PANEL AGAP 10.1 10.0 - 01/10 20.0 [facility] CHEM PANEL CO2 32 24 - 32 01/10 [facility] CHEM PANEL Chloride Lvl 102 95 - 109 01/10 [facility] CHEM PANEL Potassium 4.1 3.5 - 5.1 01/10 MH Lvl /2016 [facility] CHEM PANEL Sodium Lvl 140 135 - 145 01/10 [facility] CHEM PANEL BUN 9 7 - 22 01/10 [facility] CHEM PANEL Glucose Lvl 91 70 - 99 01/10 [facility] CHEM PANEL Phosphorus 2.6 2.5 - 4.5 01/10 [facility] IMMUNOLOGY Hep Bs Ag Negative Negative 01/09 *NA* /2016 [facility] (01/09/17 6:45 PM) [facility] DRUG SCREEN UDS Note See Note 01/08 *NA* /2016 [facility] (01/08/17 6:00 PM) [facility] DRUG SCREEN U Benzodia Negative Negative 01/08 Scr *NA* /2016 [facility] (01/08/17 6:00 PM) [facility] DRUG SCREEN U Pinky Scr Negative Negative 01/08 *NA* /2016 [facility] (01/08/17 6:00 PM) [facility] DRUG SCREEN U Cocaine Negative Negative 01/08 Scr *NA* /2016 [facility] (01/08/17 6:00 PM) [facility] DRUG SCREEN U Cannab Scr Negative Negative 01/08 *NA* /2016 [facility] (01/08/17 6:00 PM) [facility] DRUG SCREEN U Phencyc Negative Negative 01/08 Scr *NA* /2016 [facility] (01/08/17 6:00 PM) [facility] DRUG SCREEN U Opiate Scr Negative Negative 01/08 *NA* [facility] (01/08/17 6:00 PM) [facility] DRUG SCREEN U Amph Scr Negative Negative 01/08 *NA* /2016 [facility] (01/08/17 6:00 PM) [facility] URINE AND UA <=1.0 0.1 - 1.0 01/08 STOOL Urobilinogen mg/dL /2016 [facility] URINE AND UA Ketones Negative 01/08 STOOL /2016 [facility] URINE AND UA Color Straw 01/08 STOOL /2016 [facility] URINE AND UA pH >=9.0 5.0 - 8.0 01/08 STOOL *ABN* /2016 [facility] (01/08/17 6:00 PM) [facility] URINE AND UA RBC <1 0 - 2 01/08 STOOL /2016 [facility] URINE AND UA WBC 1 0 - 5 01/08 STOOL /2016 [facility] URINE AND UA Glucose Negative Negative 01/08 STOOL mg/dL mg/dL /2016 [facility] URINE AND UA Spec Grav 1.004 <=1.030 01/08 STOOL /2016 [facility] URINE AND UA Nitrite Negative Negative 01/08 [facility] (01/08/17 6:00 PM) /[address] [facility] URINE AND UA Protein 30 mg/dL Negative 01/08 STOOL mg/dL /2016 [facility] URINE AND UA Turbidity Clear Clear 01/08 [facility] (01/08/17 6:00 PM) /2016 [facility] URINE AND UA Bili Negative Negative 01/08 STOOL *NA* /2016 [facility] (01/08/17 6:00 PM) [facility] URINE AND UA Blood Negative Negative 01/08 [facility] (01/08/17 6:00 PM) /[address] [facility] URINE AND UA Mucus Few /LPF None Seen 01/08 STOOL /LPF /2016 [facility] URINE AND UA Sq Epi Few /LPF Few /LPF 01/08 STOOL /2016 [facility] URINE AND UA Leuk Est Negative Negative 01/08 [facility] (01/08/17 6:00 PM) /[address] [facility] URINE AND UA Bacteria Occasional None Seen 01/08 STOOL /HPF /HPF /2016 [facility] HEMATOLOGY PTT 36.2 22.9 - 01/08 35.8 /2016 [facility] HEMATOLOGY INR 1.05 0.85 - 01/08 1.17 /2016 [facility] HEMATOLOGY PT 13.9 12.0 - 01/08 MH 14.7 /2016 [facility] LIPIDS VLDL 22 01/08 MH /2016 [facility] LIPIDS LDL 50 <=99 mg/dL 01/08 (Calculated) /2016 [facility] LIPIDS Chol 145 <=199 01/08 mg/dL [facility] LIPIDS Trig 109 <=149 01/08 mg/dL /2016 [facility] LIPIDS HDL 73 >=61 mg/dL 01/08 /2016 [facility] LIPIDS CHD Risk 1.99 3.90 - 01/08 5.80 /2016 [facility] SPECIAL Hgb A1C 4.6 <=5.6 % 01/08 CHEMISTRY /2016 [facility] CHEM PANEL B/C Ratio 3 6 - 25 01/08 [facility] CHEM PANEL AGAP 14.4 10.0 - 07/ MH 20.0 /2017 [facility] CHEM PANEL Globulin 5.5 2.7 - 4.2 01/08 [facility] CHEM PANEL A/G Ratio 0.6 0.7 - 1.6 01/08 [facility] CHEM PANEL eGFR 8 01/08 Result Comment: The [facility] eGFR is City calculated using the [...] Glucose Lvl 85 70 - 99 01/08 [facility] CHEM PANEL CO2 26 24 - 32 01/08 [facility] CHEM PANEL ALT 14 0 - 65 01/08 [facility] CHEM PANEL Creatinine 6.23 0.50 - 07 MH Lvl 1.40 /2016 [facility] CHEM PANEL Albumin Lvl 3.3 3.5 - 5.0 01/08 [facility] CHEM PANEL BUN 16 7 - 22 01/08 [facility] CHEM PANEL AST 24 0 - 37 / [facility] CHEM PANEL Bili Total 0.5 0.2 - 1.3 01/08 [facility] CHEM PANEL Total 8.8 6.4 - 8.4 01/08 MH [facility] CHEM PANEL Alk Phos 215 39 - 136 01/08 [facility] CHEM PANEL Chloride Lvl 101 95 - 109 01/08 [facility] CHEM PANEL Potassium 5.4 3.5 - 5.1 01/08 MH Lvl /2016 [facility] CHEM PANEL Calcium Lvl 9.1 8.5 - 10.5 07/ [facility] CHEM PANEL Sodium Lvl 136 135 - 145 07/ [facility] CHEM PANEL Magnesium 2.4 1.8 - 2.4 / Lvl /2016 [facility] HEMATOLOGY Hgb 10.5 12.0 - 07 MH 16.0 /2016 [facility] HEMATOLOGY Hct 31.5 36.0 - 07 MH 48.0 /2016 [facility] HEMATOLOGY WBC 9.0 3.7 - 10.4 07/ /2016 [facility] HEMATOLOGY RBC 3.70 4.20 - 01/08 MH 5.40 /2016 [facility] HEMATOLOGY MCV 85.3 80.0 - 01/08 98.0 /2016 [facility] HEMATOLOGY MCH 28.5 27.0 - 01/08 MH 31.0 /2016 [facility] HEMATOLOGY MCHC 33.4 32.0 - 01/08 MH 36.0 /2016 [facility] HEMATOLOGY RDW 12.9 11.5 - 01/08 MH 14.5 /2016 [facility] HEMATOLOGY Platelet 212 133 - 450 07 [facility] HEMATOLOGY MPV 9.0 7.4 - 10.4 07 [facility] HEMATOLOGY Monocytes 12.8 2.0 - 12.0 01/08 [facility] HEMATOLOGY Segs 43.7 45.0 - 01/08 75.0 /2016 [facility] HEMATOLOGY Lymphocytes 40.4 20.0 - 01/08 40.0 /2016 [facility] HEMATOLOGY Segs-Bands # 4.0 1.5 - 8.1 01/08 [facility] HEMATOLOGY Eosinophils 1.9 0.0 - 4.0 01/08 [facility] HEMATOLOGY Monocytes # 1.2 0.0 - 0.8 01/08 [facility] HEMATOLOGY Lymphocytes 3.7 1.0 - 5.5 01/08 [facility] HEMATOLOGY Basophils 1.2 0.0 - 1.0 01/08 [facility] HEMATOLOGY Eosinophils 0.2 0.0 - 0.5 01/08 # /2016 [facility] HEMATOLOGY Basophils # 0.1 0.0 - 0.2 01/08 [facility] Pathology Reports No Data Provided for This Section Diagnostic Reports Report Value Date Source Chest 2 views DX EXAM: XR CHEST 1 VIEW 06/25/2018 [facility] DATE: 06/25/2018 5:32 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 FINDINGS: Comparison [...] contrast MRI 01/08/2017 4:41 PM CDT 03/2017 [facility] MRI Clinical Indication: Hemihyp estesia - transferred to [facility] CT brain reported age indeterminate [...] Comments Source Systolic (mm Hg) 158 06/30/2018 [facility] dical Center Diastolic (mm Hg) 76 06/30/2018 [facility] Systolic (mm Hg) 149 06/30/2018 [facility] dical Center Diastolic (mm Hg) 69 06/30/2018 [facility] Center Systolic (mm Hg) 156 06/30/2018 [facility] dical Center Diastolic (mm Hg) 62 06/30/2018 [facility] Temperature Oral (F) 96.5 F 06/30/2018 [facility] Respitory Rate 20 06/30/2018 [facility] Heart Rate 83 06/30/2018 [facility] Temperature Oral (F) 96.3 F 06/30/2018 [facility] Respitory Rate 20 06/30/2018 [facility] Heart Rate 60 06/30/2018 [facility] Temperature Oral (F) 96.5 F 06/30/2018 [facility] Heart Rate 60 06/30/2018 [facility] Respitory Rate 20 06/30/2018 [facility] BMI Calculated 19.41 06/24/2018 [facility] Weight 45.085 06/24/2018 [facility] Height 152.4 cm 06/24/2018 [facility] Systolic (mm Hg) 128 01/10/2017 [facility] Diastolic (mm Hg) 72 01/10/2017 [facility] Respitory Rate 14 01/10/2017 [facility] C ity Systolic (mm Hg) 100 01/10/2017 [facility] Diastolic (mm Hg) 72 01/10/2017 [facility] l [facility] Respitory Rate 24 01/10/2017 [facility] C [facility]y Systolic (mm Hg) 118 01/10/2017 [facility] Diastolic (mm Hg) 60 01/10/2017 [facility] l [facility] Respitory Rate 19 01/10/2017 [facility] C ity BMI Calculated 32.73 01/08/2017 [facility] C ity Weight 76.007 01/08/[address] [facility] Height 152.4 cm 01/08/[address] [facility] y Encounters Location Location Encounter Encounter Reason Attending ADM DC Stat us Source Details Type Number For Provider Date Date Visit [facility] [id number] Tom 01/09 01/10 Cullen Wood /2016 [facility] Inpatient [id number] Adrian 06/24 06/30 Porsche Simental /2017 [facility] Procedures Procedure Code Date Perfomer Comments Source section [id number] [facility] Cholecystectomy [id number] [facility] Assessment and Plan Assessment and Plan Date Source Extracted from:Title: FM R1 Discharge Summary 06/30/2018 [facility] Author: Daniel Murray MD PHD Date: 07/01/18 [...] emergent HD 2/2 hyperkalemia/uremia Final Diagnosis/Diagnoses: Acutepulmonaryedema [id number] ESRD(endstagerenaldisease) Hepaticencephalopathy Malnutrition cognitive impairment 2/2 suspected [...] Hepatitis C who presented as transfer from [facility] for emergent dialysis. She presented [...] of Clonidine (home med) and transferred to [facility] for emergent dialysis as a direct ICU transfer. At [facility], patient's BP got as high as [...] with pt's sister, 2 brother s, aunt, [id number], and 2 daughters. Family apparently beleived pt [...] moving in w ith her brother and [id number]. PCP was contacted and giv en our [...] Zachery Fuentes, Call for appointment , PH: [phone], within: 2 Weeks, reason: Primary Care Physician follow up post hospitalization Daniel Murray MD/PhD Family Medicine PGY1 MSO# [id number] Extracted from:Title: [place] Nephrology progress note Author: Angela Howard DO Date: 06/30/18 NEPHROLOGY PROGRESS NOTE Attending: Adrian Simental MD Service: [facility] Service Code status: Full Code Reason for [...] of Ms. To. Angela Howard, PGY5 P: [phone] C: [phone] Addendum by Rosamaria Palumbo MD on 06/30/2018 14:54 [place] NEPHROLOGY STAFF ATTESTATION I saw this medically [...] previous cocaine abuse, bipolar disorder, COPD, CAD/ [place] 2012, Stroke in 2013, ESRD secondary to HTN started on HD 2 years ago. Patient usually has a TThS schedule and get transported to her HD center (in [facility]) with a car service last HD about 2 weeks ago per patient, h er transport service stopped coming and she never followed up afterwards presented to [facility] th 3 days of shortness of breath and swollen breasts and arms, found to have hypertensive urgency, hyperkalemia and pulmonary edema 1-ESRD: Secondary toHTN Duration 2 years HD center [facility] dialysis in [place] [employer] unknown to patient HD schedule TThS Last HD 2 weeks ago Dry weight unknown to patient Access left upper extremity AVF HD order for today- 2 hrs, 400/800, UF 1-3 kg as rommel will reassess tomorrow for further HDneeds 2-Volume status: pulmonary edema Hypervolemia Will control with iHD 3-Electrolytes: hyperkalemia Na, Ca, Mg unremarkable per OSH labs labs in [facility] pending Will control with iHD Renal diet [...] by Rosamaria Palumbo MD on 06/25/2018 21:43 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 I have reviewed the labs and radiographic data, discussed the plans with the fellow and renal team, and agree with this note. Extracted from:Title: MICU History and Physical Author: Miguelito Valero MD Date: 06/24/18 58YOF with PMH ofESRD, COPD, CVA,HTN, He patitis C who presented as transfer from [facility] for emergent dialysis found to [...] _HD Antihypertensives Extracted from:Title: Clinical Document 01/10/2017 [facility] Author: Stefano Magana MD Date: 01/10/17 Subjective: [...] present . Stefano Magana M.D., [facility] Extracted from:Title: RENAL Author: Stefano Magana MD [...] TID. enoxaparin: 30 mg, 0.3 mL, SUB-Q, [id number]. famotidine: 20 mg, 1 tab, PO, Q12H. [...] 24hr Tot 0 0 0 CCL error: %GPR-A-875-SMT_EDOC_COMMON(0, 0)[id number] on array out of bound at (size:1,occur:10). CCL error: %KYS-F-748-SMT_EDOC_COMMON(0, 0)[id number]:[id number] on array out of bound at (size:1,occur:5). CCL error: %OGB-A-319-SMT_EDOC_COMMON(0, 0)716285:[id number] on array out of bound at (size:1,occur:5). CCL error: %OTY-N-177-SMT_EDOC_COMMON(0, 0)[id number] on array out of bound at (size:1,occur:7). CCL error: %UXM-B-933-SMT_EDOC_COMMON(0, 0)[id number]:1146Overflow on array out of bound at (size:1,occur:2). [...] Dr. Wood Magana M.D., [facility] Extracted from:Title: History and Physical Author: Brendan [...] History Date Source Social History TypeResponse 08/05/2013 [facility] Sexual Sexually active: No. Alcohol Past, Type [...] Cessation Counseling No Social History TypeResponse 08/05/2013 [facility] Sexual Sexually active: No. Alcohol Past, [...]
--- OUTSIDE RECORDS SUMMARY | 2020-03-24 03:53 | XMS REPORT | Continuity of Care Document ---
:1960 Author Organization [facility] t Address [address] [place] [address] Care Team Providers Name Role Phone Maru Louie MD Primary Care Physician Feng Simental Attending Clinician Otoniel Muir Attending Clinician Feng Simental Admitting Clinician Otoniel Muir Admitting Clinician Problems Condition Condition Condition Status Onset Resolution Last Treating Co mments Source Name Details Category Date Date Treatment Clinician Date KIDNEY Diagnosis Active 2017-072018-07-11 Mem oria FAILURE 08-25 22:07:00 l KIDNEY 00:00: [place] FAILURE 00 Active 06/24/2018 [facility] ISCHEMIC Diagnosis Active 2017-01-08 [facility] STROKE 01-08 16:23:00 l ISCHEMIC 00:00: J[place]ito n STROKE 00 Active 01/08/2017 [facility]BNESS [facility] NUMBNESS 00:00: Josesito n 00 Active 01/08/2017 [facility] Atrial Atrial Disease Active [facility] my[facility]oma [...] [facility]06 [facility] 00 [place] Bacteremia Bacteremia Disease Active [facility] Methicilli Problem Active 2008-072019-01-17 M homeroria n 2-10 13:57:27 l resistant 00:00: [place] Staphyloco Methicilli 00 ccus n aureus resistant (organism) Staphyloco ccus aureus (organism) Active 06/11/2009 Problem 01/17/2019 06/11/09 Nares- MRSA by PCRProblem added by Discern Expert. [facility] Coronary Coronary Problem [facility] - disease disease [facility] involving involving [place] coronary coronary ent artery of artery of Clin ics [place] heart, heart, angina angina presence presence unspecifie [...] [facility] dialysis [facility] End stage End stage Problem Active [facility] renal renal [facility] disease [facility] Insomnia, Insomnia, Problem Active [facility] unspecifie unspecifie Irma kes - d type d type [facility] HTN, goal HTN, goal Problem Active [facility] below below [facility] - 130/80 130/80 [facility] Vascular Vascular Problem [facility] dementia dementia [facility] - with with Memoria behavior behavior l disturbanc disturbanc Ou tpati e e ent Clinics Cerebral Problem 2017-01-13 Mem oria infarction 02:14:10 l , Cerebral J[place] n unspecifie infarction d , unspecifie d 01/13/2017 [facility] End stage Problem 2019-01-17 Me moria renal 13:57:27 l disease End [place] stage renal disease 01/17/2019 [facility] Chronic Problem 2019-01-17 [place] diastolic 13:57:27 l (congestiv Chronic Her holloway e) heart diastolic failure (congestiv e) heart failure 01/17/2019 [facility] Acidosis Problem 2019-01-17 Mem oria 13:57:27 l Acidosis Josesito n 01/17/2019 [facility] Unspecifie Problem 2019-01-17 M emoria d 13:57:27 l protein-ca [place] n angi Unspecifie malnutriti d on protein-ca angi malnutriti on 01/17/2019 [facility] Cocaine Problem 2019-01-17 [place] use, 13:57:27 l unspecifie Cocaine Her holloway d, use, uncomplica unspecifie ruben d, uncomplica ruben 01/17/2019 [facility] Patient's Problem 2019-01-17 Me moria noncomplia 13:57:27 l nce with [place] other Patient's medical noncomplia treatment nce with and other regimen medical treatment and regimen 01/17/2019 [facility] Nicotine Problem 2019-01-17 Mem oria dependence 13:57:27 l , Nicotine Josesito n cigarettes dependence , , uncomplica cigarettes ruben , uncomplica ruben 01/17/2019 [facility] Bipolar Problem 2019-01-17 [place] disorder, 13:57:27 l unspecifie Bipolar Her holloway d disorder, unspecifie d 01/17/2019 [facility] Chronic Problem 2019-01-17 [place] obstructiv 13:57:27 l e Chronic [place] pulmonary obstructiv disease, e unspecifie pulmonary d disease, unspecifie d 01/17/2019 [facility] Chronic Problem 2019-01-17 [place] viral 13:57:27 l hepatitis Chronic Herm johann C viral hepatitis C 01/17/2019 [facility] Hyperkalem Problem 2019-01-17 M emoria ia 13:57:27 l [place] Hyperkalem ia 01/17/2019 [facility] Hypertensi Problem 2019-01-17 M emoria ve urgency 13:57:27 l [place] Hypertensi ve urgency 01/17/2019 [facility] Anemia in Problem 2019-01-17 Me moria chronic 13:57:27 l kidney Anemia [place] disease in chronic kidney disease 01/17/2019 [facility] Patient's Problem 2019-01-17 Me moria noncomplia 13:57:27 l nce with [place] renal Patient's dialysis noncomplia nce with renal dialysis 01/17/2019 [facility] Vascular Problem 2019-01-17 Mem oria dementia 13:57:27 l without Vascular Kayce nn behavioral dementia disturbanc without e behavioral disturbanc e 01/17/2019 [facility] Dementia Problem 2019-01-17 Mem oria in other 13:57:27 l diseases Dementia Herm johann classified in other elsewhere diseases without classified behavioral elsewhere disturbanc without e behavioral disturbanc e 01/17/2019 [facility] Hepatic Problem 2019-01-17 [place] failure, 13:57:27 l unspecifie Hepatic Her holloway d without failure, coma unspecifie d without coma 9 [facility] 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-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 13:57:27 l heart [place] disease of [place] rotic coronary heart artery disease of without [place] angina coronary pectoris artery without angina pectoris 01/17/2019 [facility] Bipolar Problem Resolve 2019-01-17 Mem oria disorder d 13:57:27 l (disorder) Bipolar Her holloway disorder (disorder) Resolved Problem 01/17/2019 [facility] Chronic Problem Resolve 2019-01-17 Mem oria kidney d 13:57:27 l disease Chronic Josesito n (disorder) kidney disease (disorder) Resolved Problem 01/17/2019 [facility] Chronic Problem Resolve 2019-01-17 Mem oria obstructiv d 13:57:27 l e lung Chronic [place] disease obstructiv (disorder) e lung disease (disorder) Resolved Problem 01/17/2019 [facility] Cerebrovas Problem Resolve 2019-01-17 Memoria cular d 13:57:27 l accident [place] (disorder) Cerebrovas cular accident (disorder) Resolved Problem 01/17/2019 [facility] Dialysis Problem Resolve 2019-01-17 Me moria finding d 13:57:27 l (finding) Dialysis Her amie finding (finding) Resolved Problem 01/17/2019 started approx 2013 [facility] Disease of Problem Resolve 2019-01-17 Memoria gallbladde d 13:57:27 l r Disease [place] (disorder) of gallbladde r (disorder) Resolved Problem 01/17/2019 [facility] Acute Problem Resolve 2019-01-17 [place] myocardial d 13:57:27 l infarction Acute Kayce nn (disorder) myocardial infarction (disorder) Resolved Problem 01/17/2019 [facility] Viral Problem Resolve 2019-01-17 [place] hepatitis d 13:57:27 l C Viral [place] (disorder) hepatitis C (disorder) Resolved Problem 01/17/2019 [facility] Hypertensi Problem Resolve 2019-01-17 Memoria ve d 13:57:27 l disorder, [place] systemic Hypertensi arterial ve (disorder) disorder, systemic arterial (disorder) Resolved Problem 01/17/2019 [facility] Smoker Problem Resolve 2019-01-17 [place] (finding) d 13:57:27 l Smoker [place] (finding) Resolved Problem 01/17/2019 [facility] Simple Problem Active 2019-01-17 Memor ia obesity 13:57:27 l (disorder) Simple Herm johann obesity (disorder) Active Problem 01/17/2019 [facility] CEREBRAL Diagnosis Active 2017-01-08 M emoria INFARCTION 16:23:00 l , CEREBRAL Josesito n UNSPECIFIE INFARCTION D , UNSPECIFIE D Active [facility] ILLNESS, Diagnosis Active 2017-01-17 M emoria UNSPECIFIE 21:50:00 l D ILLNESS, Josesito n UNSPECIFIE D Active [facility] Hypertensi Problem 2018-2019-01-17 2019-01-17 Memoria ve heart 1-10 13:57:27 13:57:27 l and 04:12: [place] chronic Hypertensi 09 kidney ve heart disease and with heart chronic failure kidney and with disease stage 5 with heart chronic failure kidney and with disease, stage 5 or end chronic stage kidney renal disease, disease or end stage renal disease 07/12/2018 01/17/2019 [facility] Allergies, Adverse Reactions, Alerts Allergy Allergy Status Severity Reaction(s) Onset Inactive Treating Comm ents Source Name Type Date Date Clinician No Known No Known Active Memori a Medicati Medicati l on on [place] Leonard Allergherman s s Family History Family Member Diagnosis Comments Start Date Stop Date Source Natural mother Heart disease [facility] Social History Social Habit Start Date Stop Date Quantity Comments Source Sex Assigned At [facility] Cigarettes smoked 2016-02-25 2016-02-25 [facility] - current (pack per 00:00:00 [facility]:00:[facility]) - Reported Cigarette 2016-02-25 2016-02-25 [facility] - pack-years 00:00:00 00:00:00 [facility] History of tobacco 2015-11-25 [address] smoker [facility] - use 00:00:00 [facility] Social History 2013-08-05 2013-08-05 [facility] 08:46:07 08:46:07 Smoking Status Start Date Stop Date Source Former smoker 2016-02-25 00:00:00 2016-02-25 00:00:00 [facility] Medications Ordered Filled Start Stop Current Ordering Indication Dosage Frequency Signature Comments Components Source Medication Medication Date Date Medication? Clinician (SIG) Name Name Michele Bautista 2019- No Patrick 1 puff [facility] Ellipta Ellipta 10-08 08- Jovel [facility] Ventolin Ventolin Yes Patrick [address] [facility] HFA HFA 1-16 Jovel needed [facility] - 00:[facility]: Memoria 00 l [facility] ent [facility] Docusate 2017-07 Yes 50 mg = 1 [place] Sodium 50 2-28 cap, PO, l MG Oral 22:57: BID, PRN Josesito n Capsule 00 Constipati on, Take 1-2 tabs daily to maintain soft formed stools., # 180 cap, 0 Refill(s) POLYETHYLEN 2017-07 Yes 17 gm = 1 M emoria E GLYCOL 2-28 pkt, GT, l 3350 22:57: Daily, As [place] 00 needed for constipati on, 0 Refill(s) [...] Blood Glucose Results, Start date: 06/25/18 6:22:00 [employer] GENETICS ASSISTANT, Duration: 30 day, Stop date: 07/25/18 6:21:00 [employer] GENET[employer] ASSISTANT Dextrose 2017-07 No 12.5 gm, Memor ia 50% Syringe 2-24 25 mL, l 12:22: Route: IVP, Drug Form: INJ, Dosing Weight 45.085, kg, PRN, PRN Blood Glucose Results, Start date: 06/25/18 6:22:00 CANCER GENETICS ASSISTANT, Duration: 30 day, Stop date: 07/25/18 6:21:00 [employer] GENETICS ASSISTANT NIFEdipine 2017-07 No Notes: Memor ia 30 mg oral 2-24 (Same as: l tablet, 04:34: Adalat CC, Herm johann extended 00 Procardia release XL) Give on empty stomach. Take 1 hour before or 2 hours after meal; "Avoid grapefruit and grapefruit juice". Do not crush Saline 2017-07 No Notes: Memoria Flush 0.9% 2-24 (Same as: l 03:00: BD [place] 00 Posiflush) sennosides, 2017-07 No Notes: [place] PRISON 2-24 (Same as: l 03:00: Senokot) [place] NIFEdipine 2017-07 No Notes: Memor ia 30 [...] sodium, 2-23 porcine l porcine 22:00: heparin [place] 2500 UNT/ML 00 Injectable Solution Cardene 40 [...] tab, PO, l tablet 20:03: Daily, 0 [place] 00 Refill(s) Clonidine 2017-07 No Notes: Memori a Hydrochlori 2-23 (Same As: l de 0.1 MG 19:13: Catapres) Her holloway Oral Tablet 00 Saline 2017-07 No Notes: Memoria Flush 0.9% 2-23 (Same as: l 18:07: BD [place] 00 Posiflush) Nystatin 2017-07 No Notes: Memoria [...] PO, l oral tablet 23:09: Bedtime, # [place] 00 30 tab, 0 Refill(s) heparin No [...] Albuterol 01-08 RT l 0.09 23:00: DOCUMENTAT [place] MG/ACTUAT 00 ION (Same Metered as: Dose [...] 01-08 (Same as: l Flush 21:47: BD [place] Posiflush) Saline No 10 ml, Memoria Flush [...] [address] [facility] HCl HCl [facility] Ramipril Ramipril Yes Patrick [address] [facility] Jovel [facility] ent Clinics Carvedilol Carvedilol Yes Patrick as C [facility] Jovel directed [facility] ent Clinics Trazodone Trazodone Yes Patrick [address] HCl HCl Jovel at bedtime [facility] - as needed [facility] l [facility] ent Clinics Isosorbide Isosorbide Yes Patrick [address] Mononitrate Mononitrate Jovel in the [facility] - morning [facility] l [facility] ent Clinics [facility] 2019- No Patrick [address] 10-06 Jovel with meals [facility] - 00:00 Memoria :00 l [facility] ent Clinics Vital Signs Vital Name Observation Time Observation Value Comments Source Systolic (mm Hg) 2018-06-30 19:00:00 [place] rial [place] Diastolic (mm Hg) 2018-06-30 19:00:00 Mem orial [place] Systolic (mm Hg) 2018-06-30 18:50:00 [place] rial [place] Diastolic (mm Hg) 2018-06-30 18:50:00 Mem orial [place] Systolic (mm Hg) 2018-06-30 18:30:00 [place] rial [place] Diastolic (mm Hg) 2018-06-30 18:30:00 Mem orial [place] Temperature Oral (F) 2018-06-30 14:55:00 96.5 F [facility] [place] Respitory Rate 2018-06-30 14:06:00 Memori al [place] Heart Rate 2018-06-30 14:06:00 [facility] [place] Temperature Oral (F) 2018-06-30 14:06:00 96.3 F [facility] [place] Respitory Rate 2018-06-30 10:31:00 Memori al [place] Heart Rate 2018-06-30 10:31:00 [facility] [place] Temperature Oral (F) 2018-06-30 10:31:00 96.5 F [facility] [place] Heart Rate 2018-06-30 06:17:00 [facility] [place] Respitory Rate 2018-06-30 06:17:00 Memori al [place] BMI Calculated 2018-06-24 18:20:00 Memori al [place] Weight 2018-06-24 18:20:00 [facility] [place] Height 2018-06-24 18:20:00 152.4 cm [facility] [place] Systolic (mm Hg) 2017-01-10 21:00:00 [place] rial [place] Diastolic (mm Hg) 2017-01-10 21:00:00 Mem orial [place] Respitory Rate 2017-01-10 21:00:00 Memori al [place] Systolic (mm Hg) 2017-01-10 19:00:00 [place] rial [place] Diastolic (mm Hg) 2017-01-10 19:00:00 Mem orial [place] Respitory Rate 2017-01-10 19:00:00 Memori al [place] Systolic (mm Hg) 2017-01-10 18:11:00 [place] rial [place] Diastolic (mm Hg) 2017-01-10 18:11:00 Mem orial [place] Respitory Rate 2017-01-10 18:11:00 Memori al [place] BMI Calculated 2017-01-08 21:38:00 Memori al [place] Weight 2017-01-08 21:38:00 [facility] [place] Height 2017-01-08 21:38:00 152.4 cm [facility] [place] Procedures Procedure Date / Time Performed Performing Clinician Alli velázquez [id number] 2019-01-21 00:00:00 ENCPL [id number] 2019-01-21 00:00:00 ENCPL [id number] 2019-01-21 00:00:00 ENCPL [id number] 2019-01-21 00:00:00 ENCPL [id number] 2019-01-21 00:00:00 ENCPL [id number] 2019-01-21 00:00:00 ENCPL [id number] 2019-01-21 00:00:00 ENCPL [id number] 2019-01-21 00:00:00 ENCPL [id number] 2019-01-21 00:00:00 ENCPL [id number] 2019-01-21 00:00:00 ENCPL [facility] En[facility] Start End Encounter Admission Attending Care Care Encounter Source Date/Time Date/Time Type Type Clinicians Facility Department ID 2018-10-08 2018-10-08 [facility] [id number] [facility] 13:30:00 13:30:00 t [employer] [facility] Family Medicine l Medicine Outpati ent Clinics 2018-09-05 2018-09-05 [facility] [id number] 11:34:00 11:34:00 t [employer] s - Kiveda [facility] Family Medicine l Medicine Outpati ent Clinics 2018-08-24 2018-08-24 [facility] [id number] 08:15:00 08:15:00 t [employer] - Kiveda [facility] Family Medicine l Medicine Outpati ent Clinics 2018-07-18 2018-07-18 [facility] [id number] 10:54:00 10:54:00 t [employer] - Kiveda [facility] Family Medicine l Medicine Outpati ent Clinics 2018-07-11 2018-07-11 [facility] [id number] 11:30:00 11:30:00 t [employer] Amadesa [facility] Family Medicine l Medicine Outpati ent Clinics 2018-06-24 2018-06-30 Outpatient Kamille [facility] [id number] 11:54:00 15:55:00 Adrian Ely 2017-01-08 2017-01-10 Outpatient Wood [facility] [id number] 21:31:00 18:15:00 Tom Garcia Results Test Description Test Time Test Comments Results Result Comments Source CHEM PANEL 2018-06-30 2.2 [facility] 11:16[facility]00 CHEM PANEL 2018-06-30 [...] A/G Ratio) 0.8 1 0.7-1.6 [facility] [id number] 11:16:003.2[facility]annCHEM PANEL 2018-06-30 11:16:007.0[facility]annCHE[facility] [id number] 11:16:00 Test Item Value Reference Range Interpretation Comments B/C Ratio (test code = B/C Ratio) 8 1 6-25 [facility] HermannCHEM [id number] 11:16:000.5[facility] HermannCHEM PANEL 2018-06-30 11:16:97004Xsjixxmh HermannCHEM FEFMI6879-79-70 11:16:0088[facility] HermannCHEM RIWEZ7881-18-50 11:16:0048[facility]annCHEM OEPEI3950-09-22 11:16:008.0[facility]annCHEM RLOON1420-29-56 11:16:0013.5[facility]annCHEM GCWOM2137-42-00 11:16:71954Xacrgoda HermannCHEM AUTIH9031-06-01 11:16:0024 [facility]annCHE[facility] FECSE7318-19-94 11:16:005.89[facility] HermannCHEM PANEL 2018-06-30 11:16:85175Esrzxgyi HermannCHEM JWUUO3870-93-38 11:16:004.5[facility]orial XhqfwpoQWAEYSORRE2930-44-51 11:16:00 Test Item Value Reference Range Interpretation Comments MCH (test code = MCH) 27.7 pg 27.0-31.0 Memorial KkuckshHOUWOCCEGE2145-55-60 11:16:0028.3[facility] HermannHEMATOLOGY 2018-06-30 11:16:0085.6[facility] SnztgdeSACKUPSRNT8720-41-19 11:16:0032.3[facility] XreaozlOTDDDWFHNN2333-30-60 11:16:0016.0[facility] NqtieveCECBONCFOS4010-49-57 11:16:27778Xtqurasp OxgljzrGOFQWWIWSC2290-88-07 11:16:008.5[facility] [place] VOSFXWWOLK2644-06-55 11:16:004.4[facility] LkewkpsOXSIJEZDGB0428-58-39 11:16:00 3.31[facility] UajicwaAPEUIFRSXE4293-00-56 11:16:009.2[facility] HermannHEMATOLOGY 2018-06-30 11:16:000.9[facility] SwadxxiGEUXNHTWOB8681-06-58 11:16:001+ *ABN*(06/30/18 5:16 AM)[facility] LmaepcsKZDIHZNTEK0640-15-31 11:16:000.1[facility] UpfsfpoASJYYUVWIX8119-84-95 11:16:0020.2[facility] MyuhbucFDVRNFKJHV2882-44-52 11:16:000.9[facility] HwuandtLCEYPJZQVT6758-13-32 11:16:0032.1[facility] [place] YPJMKVOXOB4955-42-32 11:16:001.2[facility] QxdzpjeFVVPGJRAYU0542-22-50 11:16:002.0 Memorial SpmeunqGEAUNJTORL8164-82-84 11:16:001.4[facility] HermannHEMATOLOGY 2018-06-30 11:16:0045.6[facility] LkzukbcDTQYTSFFOO3753-92-25 11:16:00Normal (06/30/18 5:16 AM)[facility] HermannANEMIA KDPVG2670-98-48 14:13:0061[facility] HermannANEMIA UIEGK6703-50-31 14:13:60766Qtlbqqeh HermannANEMIA NWHMN4838-10-18 14:13:93777Tuunkxph HermannANEMIA XEZGD2940-19-47 14:13:0027[facility] [place] ANEMIA IREPI5807-91-52 14:13:26595Wchmkfik HermannCHEM WDCDV1150-88-33 11:24:00 3.6[facility] HermannCHEM IRJGD5763-44-17 11:24:002.2[facility] HermannCHEM PANEL 2018-06-29 11:24:000.5[facility] HermannCHEM WYMOH5730-91-67 11:24:10536Lqazzakt HermannCHEM CLGRR8869-59-78 11:24:0013[facility] HermannCHEM SHMOY7828-38-65 11:24:0014[facility] HermannCHEM AETYO0606-06-55 11:24:0013[facility] HermannCHEM BSNVX2852-33-07 11:24:003.0[facility] HermannCHEM VWWRS4506-16-55 11:24:007.1 [facility]annCHE[facility] GPVHJ1188-27-85 11:24:94127Rupkovzd HermannCHEM PANEL 2018-06-29 11:24:007.6[facility] HermannCHEM GIDQF4894-90-78 11:24:0025[facility] HermannCHEM UEDYS4050-24-47 11:24:004.2[facility] HermannCHEM WXCCM5616-22-47 11:24:41730Wzzdqyeb HermannCHEM GWLCE0819-10-61 11:24:0095[facility] HermannCHEM XRKWM6303-41-85 11:24:0030[facility] HermannCHEM EWUEA1870-88-39 11:24:004.15 [facility] HermannCHEM MNSLZ7493-34-84 11:24:0013.2[facility] HermannCHEM PANEL 2018-06-29 11:24:00 Test Item Value Reference Range Interpretation Comments A/G Ratio (test code = A/G Ratio) 0.7 1 0.7-1.6 [facility] HermannCHEM MQWQS0843-96-85 11:24:004.1[facility] HermannCHEM PANEL 2018-06-29 11:24:00 Test Item Value Reference Range Interpretation Comments B/C Ratio (test code = B/C Ratio) 7 1 6-25 Memorial WkliewmILVCFIYFCV8186-67-47 11:24:008.2[facility] HermannHEMATOLOGY 2018-06-29 11:24:0016.5[facility] NvrkiktDLCIHVCWZO5199-98-42 11:24:94176Nwlgzhyp DmhxjjrOCHHBGSGXS6265-59-32 11:24:0085.3[facility] EsfmbftDXWPCSVHRE5187-09-28 11:24:00 Test Item Value Reference Range Interpretation Comments MCH (test code = MCH) 27.9 pg 27.0-31.0 Memorial WsaemocDSAPWFOEHM5809-12-47 11:24:0032.7[facility] HermannHEMATOLOGY 2018-06-29 11:24:003.40[facility] TlpwvmsZBPWYRJLIH4324-00-97 11:24:009.5[facility] BlywtalBROZEYLKHH2341-46-53 11:24:005.3[facility] NvydbloZBWGPESSYN8638-89-14 11:24:0029.0[facility] QegaiurLIJOXSESVZ8602-64-46 11:24:001.6[facility] [place] DGWPFDJGSG8069-78-06 11:24:0020.2[facility] BethsqlFTSHUJWTBK4878-37-65 11:24:00 50.7[facility] XtlsmybSLUDNQCASK3707-40-16 11:24:0027.3[facility] HermannHEMATOLOGY 2018-06-29 11:24:001.1[facility] PtqygdaCXZPTSYOWZ2388-53-00 11:24:000.1[facility] IyhtrdgPEESSLZYDN3806-01-96 11:24:000.7[facility] UgamxawKKZBHTWRQC4618-56-93 11:24:002.7[facility] XbswsevBMOFXEZRMT5050-86-42 11:24:001.1[facility] [place] QRCIXXQRDT2781-46-35 11:24:001.5[facility] HermannCHEM RFRSM2873-86-20 11:13:002.2 [facility]annCHEM MLOWF4699-61-21 11:13:004.1[facility] HermannCHEM PANEL 2018-06-28 11:13:006[facility] HermannCHEM PIPLH2731-24-89 11:13:0025[facility] HermannCHEM BOIPI9142-27-45 11:13:0094[facility] HermannCHEM BOSOF4536-66-81 11:13:0049[facility] HermannCHEM RXIOK2422-43-08 11:13:004.3[facility] HermannCHEM NKGEX0235-37-24 11:13:007.38[facility] HermannCHEM QUFCI5606-66-49 11:13:17563 [facility]annCHEM ZNOTQ0210-29-03 11:13:15129Wzidsqhe HermannCHEM PANEL 2018-06-28 11:13:003.1[facility] HermannCHEM WFMIY2833-41-97 11:13:007.6[facility] HermannCHEM TLAKS9343-13-76 11:13:006.9[facility] HermannCHEM MMRGN0486-61-29 11:13:0013[facility] HermannCHEM ZDXDP0888-05-50 11:13:35882Nyonkrjs HermannCHEM MQMKC1611-43-22 11:13:0011[facility] HermannCHEM UHRTY9048-48-73 11:13:000.5 [facility] HermannCHEM WOZZW6990-61-41 11:13:003.8[facility] HermannCHEM PANEL 2018-06-28 11:13:00 Test Item Value Reference Range Interpretation Comments B/C Ratio (test code = B/C Ratio) 7 1 6-25 [facility] HermannCHEM [id number] 11:13:00 Test Item Value Reference Range Interpretation Comments A/G Ratio (test code = A/G Ratio) 0.8 1 0.7-1.6 [facility] HermannCHEM JCIGL4787-06-87 11:13:0012.3[facility] HermannHEMATOLOGY 2018-06-28 11:13:008.5[facility] IbjzeydKGWEEYUBRA9884-22-69 11:13:88944Lnjzahze PgpxzdeRQUYFWXKUX2895-56-02 11:13:0016.0[facility] JfbwqykBGWFXCTCEO1311-15-42 11:13:0031.5[facility] RqjabbcANUBBURNLG7876-54-65 11:13:00 Test Item Value Reference Range Interpretation Comments MCH (test code = MCH) 26.9 pg 27.0-31.0 [facility] MltinctMHVUQPSIHZ4777-06-82 11:13:0085.6[facility] HermannHEMATOLOGY 2018-06-28 11:13:0029.4[facility] FmnqtumYZZOFQAIZC8372-13-02 11:13:003.43[facility] KwmovatHWGMAHEZWE9635-95-27 11:13:005.1[facility] GpcfrmkFDEAILYWUF0326-90-41 11:13:009.2[facility] EruadahSCPVPBQHVS0920-38-45 11:13:000.1[facility] [place] VDHETGLQBC4755-33-51 11:13:000.1[facility] DphtmfmUQNSMPEGXU2077-12-89 11:13:000.9 [facility] WnruligSGSNDEJWNT0601-54-93 11:13:0017.7[facility] HermannHEMATOLOGY 2018-06-28 11:13:0052.2[facility] FhetiqoCKXNAUDMRJ0488-07-82 11:13:0027.8[facility] NulkrdjPTDJRUMLMJ2384-75-51 11:13:001.4[facility] RqmfidzDIRUKVUYJK4012-16-93 11:13:002.7[facility] MpqunhsCXPUQLZDNO0528-11-03 11:13:001.0[facility] [place] POWWUMWVSI2945-86-04 11:13:001.3[facility] HermannAMINO LCFD0343-06-00 19:12:39270 [facility] HermannAMINO ICNX8012-71-42 19:12:0040.6[facility] HermannANEMIA STUDY 2018-06-27 19:12:34688Dqpazfav HermannCHEM RPGFA5899-37-23 19:12:0029.0[facility] DqmilokLKCRSXBXQN0115-63-89 19:12:00Non-Reactive (06/27/18 1:12 PM)[facility] HermannMOLECULAR HTEBZKAZBL8241-22-52 20:58:00<1.2[facility] HermannMOLECULAR JKXCBORNBH0617-75-73 20:58:00Not Detected (06/26/18 2:58 PM)[facility] URINE AND [id number] 14:03:002[facility] [id number] 14:03:00Negative (06/26/18 8:03 AM)[facility] [id number] 14:03:00Negative (06/26/18 8:03 AM)[facility] MUFQH4260-68-22 14:03:00<1[facility] [id number] 14:03:00Negative (06/26/18 8:03 AM)[facility] [id number] 14:03:00 Test Item Value Reference Range Interpretation Comments UA pH (test code = UA pH) 7.5 1 5.0-8.0 [facility] [id number] 14:03:00Negative *NA*(06/26/18 8:03 AM)[facility] [id number] 14:03:00Light Yellow *NA*(06/26/18 8:03 AM)[facility] [id number] 14:03:00 Test Item Value Reference Range Interpretation Comments UA Spec Grav (test code = UA Spec 1.004 1 Grav) [facility] [id number] 14:03:00Clear (06/26/18 8:03 AM) [facility] XhtizweVSATFSQGQN0495-48-75 19:39:0066.7[facility]annIMMUNOLOGY 2018-06-24 19:39:00Positive *ABN*(06/24/18 1:39 PM)[facility]ann[facility]MUNOLOGY 2018-06-24 19:39:00Negative *NA*(06/24/18 1:39 PM)[facility]OLOG[facility] 2018-06-24 19:39:00Negative *NA*(06/24/18 1:39 PM)[facility]ann[facility]MUNOLOGY 2018-06-24 19:39:00Negative *NA*(06/24/18 1:39 PM)[facility]annBACTERIAL - [id number] 19:05:00Negative (06/24/18 1:05 PM)[facility]annCARDIAC AFVRGUC3108-09-67 19:05:000.05[facility]annCARDIAC IMTFHCL9732-51-45 19:05:00 1953[facility]annCARDIAC EDACHPZ5476-16-55 19:05:1501048Lcszkhns HermannCHEM JTBXI3422-55-53 19:05:000.1[facility]annCHEM LOTYB1534-54-33 19:05:000.8 [facility] WigqdxxIVEPVBRSTT2247-87-44 19:05:00 Test Item Value Reference Range Interpretation Comments PTT (test code = PTT) 36.4 s 22.9-35.8 [facility] SjbllmmLOGRPRCPWB3092-67-57 19:05:00 Test Item Value Reference Range Interpretation Comments PT (test code = PT) 15.4 s 12.0-14.7 [facility] JxiqerbMXGSSDAFRL1587-93-07 19:05:00 Test Item Value Reference Range Interpretation Comments INR (test code = INR) 1.24 1 0.85-1.17 [facility] WtwdpynZURTUTALOL5553-29-83 19:05:000.1[facility]annIMMUNOLOGY 2018-06-24 19:05:00Negative *NA*(06/24/18 1:05 PM)[facility]annMOLECULAR DABMIBZUGJ1688-70-82 19:05:00Negative (06/24/18 1:05 PM)[facility] MOLECULAR SRKKWUJQGX5110-79-87 19:05: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 Swab (06/24/18 1:05 PM) [facility]CULAR VCVNGAHKOU7232-86-87 19:05:00Negative (06/24/18 1:05 PM)[facility]annMOLECULAR GRAHMWDZKP6205-19-32 19:05:00Negative (06/24/18 1:05 PM)[facility]annPARATHYROID MRVBTPG8189-81-55 19:05:000.92[facility]annPARATHYROID OVPEVZL9084-81-90 19:05:000.86[facility]annCHEM PANEL 2017-01-10 07:46:0014[facility] HermannCHEM COXIQ5884-38-00 07:46:003.84[facility]annCHEM NWMAP6716-11-76 07:46:008.3[facility]annCHEM NZZHX5096-67-19 07:46:0010.1[facility]annCHEM LPTUO3659-72-18 07:46:0032[facility]annCHEM YIJIL6067-95-09 07:46:88056Bdmuasaq HermannCHEM SJOOW1860-84-55 07:46:004.1 [facility]annCHEM TYICH9893-29-95 07:46:36385Tgsvqyxf HermannCHEM PANEL 2017-01-10 07:46:009[facility]annCHEM ROWNM3620-36-72 07:46:0091[facility]annCHEM CFIXM2207-10-41 07:46:002.6[facility] NnjkkvlAXXWIQQPIW6753-76-92 23:45:00Negative *NA*(01/09/17 6:45 PM)[facility]annDRUG SWPGXC7561-77-12 23:00:00See Note *NA*(01/08/17 6:00 PM)[facility]annDR[facility] OKSTPB1523-56-02 23:00:00Negative *NA*(01/08/17 6:00 PM)[facility]annDR[facility] [id number] 23:00:00Negative *NA*(01/08/17 6:00 PM)[facility]annDR[facility] [id number] 23:00:00Negative *NA*(01/08/17 6:00 PM)[facility]annDR[facility] FWGEIY1270-96-91 23:00:00Negative *NA*(01/08/17 6:00 PM)[facility]annDR[facility] VHMCNS4215-61-12 23:00:00Negative *NA*(01/08/17 6:00 PM)[facility]annDR[facility] [id number] 23:00:00Negative *NA*(01/08/17 6:00 PM)[facility]annDR[facility] TNBSPO7503-88-56 23:00:00Negative *NA*(01/08/17 6:00 PM)[facility] AZYWV2979-22-13 23:00:00>=9.0 *ABN*(01/08/17 6:00 PM)[facility] [id number] 23:00:00<1[facility] [id number] 23:00:001[facility]INE AND WJCXQ3677-49-57 23:00:001.004[facility] VZHNF2045-66-20 23:00:00Negative (01/08/17 6:00 PM)[facility] [id number] 23:00:00Clear (01/08/17 6:00 PM)[facility] [id number] 23:00:00 Negative *NA*(01/08/17 6:00 PM)[facility] [id number] 23:00:00 Negative (01/08/17 6:00 PM)[facility] [id number] 23:00:00 Negative (01/08/17 6:00 PM)[facility] LkhpvezXICRVGSDJM6816-27-00 22:21:00 Test Item Value Reference Range Interpretation Comments PTT (test code = PTT) 36.2 s 22.9-35.8 [facility] FmwwacjLJAPABRBWP9280-68-81 22:21:001.05[facility]annHEMATOLOGY 2017-01-08 22:21:00 Test Item Value Reference Range Interpretation Comments PT (test code = PT) 13.9 s 12.0-14.7 [facility] WzvwenlSOWYYV3794-31-83 22:21:0022[facility] AckfnzyVRKPNA1824-06-69 22:21:0050[facility] XhfbuhpPZSOTN7709-54-56 22:21:80518Ujpjnuje HermannLIPIDS 2017-01-08 22:21:07192Xhplkdnm LcnwojoTNSKXB1337-24-92 22:21:0073[facility] NgcqifiYJMBQY2414-58-52 22:21:001.99[facility] HermannSPECIAL EDZMYWVEI0390-53-35 22:21:004.6[facility] HermannCHEM UMVKU2744-57-65 22:20:003[facility] HermannCHEM GFKDG5213-73-33 22:20:0014.4[facility] HermannCHEM QEFAQ6692-54-68 22:20:005.5 [facility]annCHEM HFSFP0199-05-32 22:20:000.6[facility] HermannCHEM PANEL 2017-01-08 22:20:008[facility] HermannCHEM JIECJ6714-67-09 22:20:0085[facility] HermannCHEM ZRFAE6832-35-14 22:20:0026[facility] HermannCHEM QUJMU5357-01-89 22:20:0014[facility] HermannCHEM JVELC5111-66-96 22:20:006.23[facility] HermannCHEM WFOMN2228-08-97 22:20:003.3[facility] HermannCHEM FZYSW2075-24-43 22:20:0016 [facility]annCHEM XMPPI0618-77-08 22:20:0024[facility]annCHEM PANEL 2017-01-08 22:20:000.5[facility] HermannCHEM CURLT3372-94-41 22:20:008.8[facility] HermannCHEM SOFEW0131-93-69 22:20:15597Eroditcs HermannCHEM HMZOE1519-37-22 22:20:02715Vdpjwgxn HermannCHEM MCBPT2174-45-41 22:20:005.4[facility] HermannCHEM XSOVR5739-07-92 22:20:009.1[facility] HermannCHEM MOZUD2718-67-62 22:20:01577 [facility]annCHEM HSJQA4318-10-01 22:20:002.4[facility]annHEMATOLOGY 2017-01-08 22:20:0010.5[facility] RpljyzfJGLEHAVVKS1843-01-97 22:20:0031.5[facility] NisemnqBGJTDBVNKS4575-08-27 22:20:009.0[facility] AfottseWZMWWBSFSZ5934-79-28 22:20:003.70[facility] WprurxbVWJGEPOTTN3324-33-34 22:20:0085.3[facility] ENAQYQZPDG6509-95-92 22:20:00 Test Item Value Reference Range Interpretation Comments MCH (test code = MCH) 28.5 pg 27.0-31.0 [facility] VtdkoqiGBENIACUHO0295-15-91 22:20:0033.4[facility]annHEMATOLOGY 2017-01-08 22:20:0012.9[facility] RqozfrmJWZYUSLZJI6370-38-66 22:20:82932Ztmpniax RosmxzuSNYEURDULC4124-12-27 22:20:009.0[facility] NxpsegyZZHBANQVDB4049-25-03 22:20:0012.8[facility] DjerkoeOHBCMPWHYU9742-51-88 22:20:0043.7[facility] LQLTQTAEDP8622-80-75 22:20:0040.4[facility] AeoqeycYIDCRTCKYV9468-28-37 22:20:00 4.0[facility] GsuorddLQMYFMGHCB7893-72-69 22:20:001.9[facility] HermannHEMATOLOGY 2017-01-08 22:20:001.2[facility] KyvqtneYVFCLYUCGG5175-89-15 22:20:003.7[facility] UgiwqgjJNZGOGCIEC8560-26-86 22:20:001.2[facility] JxlquvkFPWKKPSLCV2139-84-67 22:20:000.2[facility] LkmvgspYEHSLSXAYX8909-77-93 22:20:000.1[facility]
[2020-03-24] MEDS ORDERED: METHYLPREDNISOLONE 125 MG INJ ONE (06:57)
[2020-03-24] MEDS ORDERED: IPRATROPIUM BROM 0.5MG/2.5ML ONE (06:57)
[2020-03-24] MEDS ORDERED: ALBUTEROL 2.5 MG/3 ML NEB SOL ONE (06:58)
[2020-03-24 07:12] LABS: Absolute Lymphocytes (CBC) 1.9 K/uL (0.7-4.9); Basophils % 1.3 % (0-1.3); RBC Red Blood Cell Count 3.71 M/uL (3.86-4.86)
--- NOTE | 2020-03-24 07:19 | RAD REPORT ---
EXAM DESCRIPTION: RAD - Chest Single View - 03/24/2020 4:54 am CLINICAL HISTORY: COPD, shortness of breath COMPARISON: March 19 TECHNIQUE: AP portable chest image was obtained 03/24/2020 4:54 am . FINDINGS: Lung volumes are substantially reduced compared to the prior study. This accentuates the b aseline interstitial pattern and further accentuates heart size and central pulmonary vasculature. St ernotomy wires are in place. No peripheral mass or consolidations seen. Mild failure or volume overlo ad can be masked in this setting. No measurable pleural effusion and no pneumothorax. No acute bony abnormality seen. No acute aortic findings suspected. IMPRESSION: Limited shallow inspiration film shows no peripheral mass or consolidation. Mild or early failure/ volume overload could be masked in this setting.
[2020-03-24 07:22] LABS: Protime INR 0.91
[2020-03-24 07:48] LABS: Albumin 3.3 g/dL (3.4-5.0); Bilirubin Direct 0.1 mg/dL (0-0.2); Bilirubin Total 0.4 mg/dL (0.2-1.0); CKMB Creatine Kinase MB 1.1 ng/mL (0.3-3.6); Protein, Total 7.5 g/dL (6.4-8.2); Troponin (Emerg Dept Use Only) 0.02 ng/mL (0.0-0.045)
[2020-03-24 07:50] LABS: Magnesium 2.3 mg/dL (1.8-2.4); Potassium 4.2 mmol/L (3.5-5.1)
--- NOTE | 2020-03-24 08:04 | EDPHYS ---
Physician Documentation [facility] Name: Michelle Ochoa Age: 59 yrs Sex: Female : 1960 Arrival Date: 03/24/2020 Time: 03:47 Bed 19 Private MD: ED Physician Abhishek Decker HPI: 03/24 05:13 This 59 yrs old Black Female presents to ER via EMS with complaints of Shortness Of tw4 Breath. 05:13 The patient has shortness of breath at rest. Onset: The symptoms/episode began/occurred tw4 3 day(s) ago. Duration: The symptoms are continuous. The patient's shortness of breath has no apparent modifying factors. Associated signs and symptoms: Pertinent positives: productive cough, Pertinent negatives: chest pain, diaphoresis, dizziness, nausea, numbness in extremities, visual changes. Severity of symptoms: At their worst the symptoms were moderate in the emergency department the symptoms are unchanged. The patient has not experienced similar symptoms in the past. Historical: - Allergies: 03:58 No Known Allergies; bb - Home Meds: 03:58 sevelamer HCl 800 mg Oral 1 tab 3 times per day [Active]; albuterol sulfate 90 bb mcg/actuation Inhl HFAA 1 puff nightly [Active]; aspirin 81 mg Oral TbEC 1 tab once daily [Active]; clonidine HCl 0.2 mg oral tab 1 tab 2 times per day [Active]; fluticasone furoate inhalation 1 puff once daily [Active]; isosorbide mononitrate 30 mg Oral Tb24 1 tab twice a day [Active]; ramipril 5 mg Oral cap 1 cap once daily [Active]; omeprazole 40 mg Oral cpDR 1 cap once daily [Active]; carvedilol 12.5 mg oral tab 1 tab 2 times per day [Active]; - PMHx: 03:58 Anemia; Bronchitis; CHF; COPD; CVA; Dementia; Dialysis- T/Th/Sat; ENDOCARDITIS; ESRD; bb Hypertension; kidney failure; PATRICK; osteoarthritis; Renal Disease; - PSHx: 03:58 Triple bypass; bb - Immunization history:: Adult Immunizations up to date. - Social history:: Smoking status: Patient/guardian denies using tobacco, quit this week. ROS: 05:13 Constitutional: Negative for fever, chills, and weight loss, Eyes: Negative for injury, tw4 pain, redness, and discharge, Cardiovascular: Negative for chest pain, palpitations, and edema, Abdomen/GI: Negative for abdominal pain, nausea, vomiting, diarrhea, and constipation, Back: Negative for injury and pain, MS/Extremity: Negative for injury and deformity, Skin: Negative for injury, rash, and discoloration, Neuro: Negative for headache, weakness, numbness, tingling, and seizure. 05:13 Respiratory: Positive for shortness of breath, Negative for cough, dyspnea on exertion, hemoptysis, orthopnea, pleurisy. Exam: 05:13 Constitutional: This is a well developed, well nourished patient who is awake, alert, tw4 and in no acute distress. Head/Face: Normocephalic, atraumatic. Chest/axilla: Normal chest wall appearance and motion. Nontender with no deformity. No lesions are appreciated. Cardiovascular: Regular rate and rhythm with a normal S1 and S2. No gallops, murmurs, or rubs. Normal PMI, no JVD. No pulse deficits. Abdomen/GI: Soft, non-tender, with normal bowel sounds. No distension or tympany. No guarding or rebound. No evidence of tenderness throughout. Back: No spinal tenderness. No costovertebral tenderness. Full range of motion. MS/ Extremity: Pulses equal, no cyanosis. Neurovascular intact. Full, normal range of motion. Neuro: Awake and alert, GCS 15, oriented to person, place, time, and situation. Cranial nerves II-XII grossly intact. Motor strength 5/5 in all extremities. Sensory grossly intact. Cerebellar exam normal. Normal gait. Vital Signs: 03:52 BP 170 / 86; Pulse 64; Resp 20 S; Temp 97.7(TE); Pulse Ox 100% on R/A; Weight 84.37 kg bb (R); Height 5 ft. 0 in. (152.40 cm) (R); Pain 0/10; 04:00 BP 92 / 72; Pulse 59; Resp 23; Temp 97.7; Pulse Ox 100% on R/A; Pain 0/10; fu 05:00 BP 159 / 73; Pulse 64; Resp 23; Pulse Ox 100% on R/A; Pain 0/10; fu 07:32 BP 185 / 67; Pulse 65; Resp 22; Pulse Ox 100% on Non-rebreather mask; em 03:52 Body Mass Index 36.33 (84.37 kg, 152.40 cm) bb MDM: 03:47 Patient medically screened. tw4 05:13 Differential diagnosis: asthma, CHF exacerbation, Chronic Obstructive Pulmonary Disease tw4 Pneumothorax pulmonary edema, Pulmonary Embolism reactive airway disease. Data reviewed: vital signs, nurses notes. Counseling: I had a detailed discussion with the patient and/or guardian regarding: the historical points, exam findings, and any diagnostic results supporting the discharge/admit diagnosis. 07:50 ED course: Signed out to me by Dr. Decker, sign out was pending labs and if troponin rn negative thinks ok to send home. . 08:02 ED course: Pt improved after nebs and steroids. Recently admitted and discharged home, rn clear cxr, elevated d-dimer during hospitalization and not thought to have PE, no oxygen requirement, neg trop, will dc home as planned by Dr. Decker. . 03/24 04:15 Order name: Blood Culture Adult (2) 03/24 04:15 Order name: BMP; Complete Time: 08:03/24 04:15 Order name: CBC with Diff; Complete Time: 07:03/24 04:15 Order name: Ckmb; Complete Time: 08:03/24 04:15 Order name: CPK; Complete Time: 08:03/24 04:15 Order name: D-Dimer; Complete Time: 07:03/24 04:15 Order name: Hepatic Function; Complete Time: 08:03/24 04:15 Order name: Lipase; Complete Time: 08:03/24 04:15 Order name: Magnesium; Complete Time: 08:03/24 04:15 Order name: NT PRO-BNP; Complete Time: 08:03/24 04:15 Order name: PT-INR; Complete Time: :03/24 04:15 Order name: Ptt, Activated; Complete Time: 07:29 03/24 04:15 Order name: Troponin (emerg Dept Use Only); Complete Time: 08:03/24 04:15 Order name: XRAY CXR (1 view); Complete Time: 07:29 03/24 04:15 Order name: EKG; Complete Time: 04:17 03/24 04:15 Order name: Cardiac monitoring; Complete Time: 04:03/24 04:15 Order name: EKG - Nurse/Tech; Complete Time: 04:27 03/24 04:15 Order name: IV Saline Lock; Complete Time: 04:03/24 04:15 Order name: Labs collected and sent; Complete Time: 04:03/24 04:15 Order name: O2 Per Protocol; Complete Time: 04:27 03/24 04:15 Order name: O2 Sat Monitoring; Complete Time: 04:03/24 04:15 Order name: Flu; Complete Time: 07:03/24 04:15 Order name: Strep; Complete Time: 07:29 03/24 04:15 Order name: Document PUI#; Complete Time: 06:28 03/24 04:15 Order name: Droplet/Contact Precautions; Complete Time: 04:03/24 04:44 Order name: SARS-COV-2 RT PCR; Complete Time: 07:29 EDMS 03/24 05:22 Order name: Throat Culture EDGA 03/24 04:15 Order name: Notify Health Dept [phone]/ ; Complete Time: 06:28 tw4 Administered Medications: 07:00 Drug: DuoNeb (3:1) (2.5 mg - 0.5 mg) 3 ml Route: Nebulizer; fu 07:51 Follow up: Response: No adverse reaction; Marked relief of symptoms em 07:00 Drug: SOLU-Medrol 125 mg Route: IVP; Site: right hand; fu 07:51 Follow up: Response: No adverse reaction; Marked relief of symptoms em Disposition: 03/24/20 08:03 Discharged to Home. Impression: Chronic obstructive pulmonary disease with (acute) exacerbation, Dyspnea. - Condition is Stable. - Discharge Instructions: Chronic Obstructive Pulmonary Disease Exacerbation. - Prescriptions for Prednisone 20 mg Oral Tablet - take 3 tablet by ORAL route once daily for 5 days; 15 tablet. Albuterol Sulfate 2.5 mg /3 mL (0.083 %) Inhalation Solution for Nebulization - inhale 1 unit by NEBULIZATION route every 8 hours As needed; 1 box. Albuterol Sulfate 90 mcg/actuation - inhale 1-2 puff by INHALATION route every 4-6 hours; 1 Inhaler. - Medication Reconciliation Form, Thank You Letter, Antibiotic Education, Prescription Opioid Use form. - Follow up: Private Physician; When: Upon discharge from the Emergency Department; Reason: Recheck today's complaints, Continuance of care, Re-evaluation by your physician. - Problem is an ongoing problem. - Symptoms have improved. Signatures: Dispatcher [employer] [facility] Martha Vickers RN RN bb Duong Vasquez MD MD rn Baxter, Heather, RN RN Brigido Burks RN RN fu Wadley, Terrence, MD MD tw4 Yariel Garnica RN em Corrections: (The following items were deleted from the chart) 04:44 04:17 CORONAVIRUS+MR.LAB.BRZ ordered. [facility] 10:43 08:03 03/24/2020 08:03 Discharged to Home. Impression: Chronic obstructive pulmonary hb disease with (acute) exacerbation; Dyspnea. Condition is Stable. Forms are Medication Reconciliation Form, Thank You Letter, Antibiotic Education, Prescription Opioid Use. Follow up: Private Physician; When: Upon discharge from the Emergency Department; Reason: Recheck today's complaints, Continuance of care, Re-evaluation by your physician. Problem is an ongoing problem. Symptoms have improved. rn
--- NOTE | 2020-03-24 08:04 | ER ---
Nurse's Notes [facility] Name: Michelle Ochoa Age: 59 yrs Sex: Female : 1960 Arrival Date: 03/24/2020 Time: 03:47 Bed 19 Private MD: Diagnosis: Chronic obstructive pulmonary disease with (acute) exacerbation;Dyspnea Presentation: 03/24 03:52 Chief complaint: EMS states: they were toned out for report of pt with shortness of bb breath x 1 week pt was recently discharged Monday for COPD exacerbation. Coronavirus screen: At this time, the client does not indicate any symptoms associated with coronavirus-19. Ebola Screen: No symptoms or risks identified at this time. Initial Sepsis Screen: Does the patient meet any 2 criteria? No. Patient's initial sepsis screen is negative. Does the patient have a suspected source of infection? No. Patient's initial sepsis screen is negative. Risk Assessment: Do you want to hurt yourself or someone else? Patient reports no desire to harm self or others. Onset of symptoms was March 24, 2020. 03:52 Method Of Arrival: EMS: [facility] bb 03:52 Acuity: ZAID 3 bb Historical: - Allergies: 03:58 No Known Allergies; bb - Home Meds: 03:58 sevelamer HCl 800 mg Oral 1 tab 3 times per day [Active]; albuterol sulfate 90 bb mcg/actuation Inhl HFAA 1 puff nightly [Active]; aspirin 81 mg Oral TbEC 1 tab once daily [Active]; clonidine HCl 0.2 mg oral tab 1 tab 2 times per day [Active]; fluticasone furoate inhalation 1 puff once daily [Active]; isosorbide mononitrate 30 mg Oral Tb24 1 tab twice a day [Active]; ramipril 5 mg Oral cap 1 cap once daily [Active]; omeprazole 40 mg Oral cpDR 1 cap once daily [Active]; carvedilol 12.5 mg oral tab 1 tab 2 times per day [Active]; - PMHx: 03:58 Anemia; Bronchitis; CHF; COPD; CVA; Dementia; Dialysis- T/Th/Sat; ENDOCARDITIS; ESRD; bb Hypertension; kidney failure; PATRICK; osteoarthritis; Renal Disease; - PSHx: 03:58 Triple bypass; bb - Immunization history:: Adult Immunizations up to date. - Social history:: Smoking status: Patient/guardian denies using tobacco, quit this week. Screenin:58 Abuse screen: Denies threats or abuse. Nutritional screening: No deficits noted. fu Tuberculosis screening: No symptoms or risk factors identified. Fall Risk None identified. Assessment: 03:53 General: Appears uncomfortable, Behavior is calm, cooperative, appropriate for age, fu Reports shortness of breath Denies fever, chills. Pain: Denies pain. Neuro: Level of Consciousness is awake, alert, obeys commands, Oriented to person, place, time, situation, Turning And Beading Machine Operator are equal bilaterally Moves all extremities. Speech is normal, Facial symmetry appears normal. Cardiovascular:. Respiratory: Reports shortness of breath at rest cough that is productive, Airway is patent Respiratory effort is labored, Respiratory pattern is regular, Breath sounds with wheezes in left posterior upper lobe and left posterior lower lobe. GI: No signs and/or symptoms were reported involving the gastrointestinal system. Derm: dialysis access to left upper arm. 04:00 Cardiovascular: Rhythm is sinus rhythm. fu 05:00 Reassessment: Patient is alert, oriented x 3, equal unlabored respirations, skin fu warm/dry/pink. 06:18 Reassessment: unable to draw blood from IV access, colleague tried 2x but but failed, fu called lab for help with blood draw, Dr. Decker notified. 08:32 Reassessment: pt DC'd, pending family to warehouse picker pt. em 09:30 Reassessment: Patient appears in no apparent distress at this time. pt reports she is em unable to get a hold someone to come pick her up. 10:24 Reassessment: Patient appears in no apparent distress at this time. spoke with Crystal negron (sister) and is trying to get her daughter to come warehouse picker pt. Vital Signs: 03:52 BP 170 / 86; Pulse 64; Resp 20 S; Temp 97.7(TE); Pulse Ox 100% on R/A; Weight 84.37 kg bb (R); Height 5 ft. 0 in. (152.40 cm) (R); Pain 0/10; 04:00 BP 92 / 72; Pulse 59; Resp 23; Temp 97.7; Pulse Ox 100% on R/A; Pain 0/10; fu 05:00 BP 159 / 73; Pulse 64; Resp 23; Pulse Ox 100% on R/A; Pain 0/10; fu 07:32 BP 185 / 67; Pulse 65; Resp 22; Pulse Ox 100% on Non-rebreather mask; em 03:52 Body Mass Index 36.33 (84.37 kg, 152.40 cm) ED Course: 03:47 Patient arrived in ED. cl3 03:47 Abhishek Decker MD is Attending Physician. tw4 03:53 Brigido Burks, SAÚL is Primary Nurse. fu 03:54 Triage completed. bb 03:58 Arm band placed on Patient placed in an exam room, on a stretcher, on pulse oximetry. bb 03:58 Patient has correct armband on for positive identification. Bed in low position. Call fu light in reach. Side rails up X 1. Pulse ox on. NIBP on. provided with blanket. 04:30 Missed attempt(s): 22 gauge in right hand. fu 04:35 Inserted saline lock: 22 gauge in right hand, using aseptic technique. fu 04:54 XRAY CXR (1 view) In Process Unspecified. EDMS 06:11 No provider procedures requiring assistance completed. fu 07:10 Initial lab(s) drawn, by laboratory geneticist, sent to lab. fu 07:14 Report given to SAÚL Saldivar. fu 08:38 IV discontinued, intact, bleeding controlled, No redness/swelling at site. Pressure em dressing applied. Administered Medications: 07:00 Drug: DuoNeb (3:1) (2.5 mg - 0.5 mg) 3 ml Route: Nebulizer; fu 07:51 Follow up: Response: No adverse reaction; Marked relief of symptoms em 07:00 Drug: SOLU-Medrol 125 mg Route: IVP; Site: right hand; fu 07:51 Follow up: Response: No adverse reaction; Marked relief of symptoms em Outcome: 08:03 Discharge ordered by . rn 08:38 Discharged to home via wheelchair, with family. em 08:38 Condition: good 08:38 Discharge instructions given to patient, Instructed on discharge instructions, follow up and referral plans. medication usage, Demonstrated understanding of instructions, follow-up care, medications, Prescriptions given X 3. 10:43 Patient left the ED. hb Signatures: Dispatcher [employer] Yariel Jesus, RN RN Martha Powell, RN RN Duong Pederson MD MD rn Baxter, Heather, Brigido Conrad RN, RN Abhishek Malik MD MD tw4 Jing Mccullough cl3
[2020-03-24 11:11] VITALS: TEMP 97.7; O2SAT 100
[2020-03-24 11:16] VITALS: BP 185/67
--- NOTE | 2020-03-25 12:06 | EKG ---
Test Date: 2020-03-24 Test Time: 03:58:01 [employer] Operator: REJI MEASUREMENT RESULTS: Intervals: Rate: 62 VT: 162 QRSD: 74 QT: 456 QTc: 462 [place]: P: 91 VT: 162 QRS: 2 T: 115 INTERPRETIVE STATEMENTS: Normal sinus rhythm Anterior infarct, age undetermined T wave abnormality, consider lateral ischemia Abnormal ECG Compared to ECG 03/19/2020 21:02:27 Myocardial infarct finding now present Possible ischemia now present Sinus arrhythmia no longer present Prolonged QT interval no longer present T-wave abnormality still present Electronically Signed On 03-25-20 12:01:45 CDT by Bam Terry
== END 2020-03-24 10:43 | disposition home or self-care (01) ==
LOC: ER 03:46
DX: J44.1 Chronic obstructive pulmonary disease with (acute) exacerbation (principal); Z20.828 Contact with and (suspected) exposure to other viral communicable diseases; R06.00 Dyspnea, unspecified; I12.0 Hypertensive chronic kidney disease with stage 5 chronic kidney disease or end stage renal disease; N18.6 End stage renal disease; Z99.2 Dependence on renal dialysis; F03.90 Unspecified dementia, unspecified severity, without behavioral disturbance, psychotic disturbance, mood disturbance, and anxiety; Z79.82 Long term (current) use of aspirin; Z95.1 Presence of aortocoronary bypass graft
CPT/HCPCS: 36415; 71045; 80048; 80076; 82550; 82553; 83690; 83735; 83880; 84484; 85025; 85379; 85610; 85730; 87040; 87070; 87081; 87804; 93005; 96374; 99285; J2930; U0003

== ENCOUNTER 2020-03-25 00:46 | Inpatient (IN) | payer OTHER ==
--- OUTSIDE RECORDS SUMMARY | 2020-03-25 00:48 | XMS REPORT | Clinical Summary ---
:1960 Author Organization [facility] Address [address] [place] [address] Care Team Providers Name Role Phone Jacob [...] Not on file Implants Implanted Type Area Eggs Inspector Device Shelf Model / Identifier Expiration Serial / Lot Date Grft Hemshld Dbl Jarrod 2.0x6.0in [id number] - [id number] Graft/Pat GETINGE 01/30/2019 [id number] / Implanted: Qty: 1 on 01/25/2016 by Sherif Bañuelos MD c h IND:MALOBITOT:CV / [id number] Results Not on fileafter 03/25/2019 Insurance Payer Benefit Plan / Group Subscriber ID Type Phone A ddress [employer] [facility] [employer] xxxxxxxxx [facility] MEDICAID [place] xxxxxxxxx Medicaid Advance Directives For more information, please contact:[address] [phone] Code Status Date Activated Date Inactivated Comments Full Code 01/23/2016 1:38 PM 02/06/2016 8:06 PM This code status was determined by: Patient Full Code 01/18/2016 10:03 AM 01/18/2016 10:53 AM This code status was determined by: Patient Full Code 01/16/2016 3:39 AM 01/18/2016 10:03 AM This code status was determined by: Patient
--- OUTSIDE RECORDS SUMMARY | 2020-03-25 00:50 | XMS REPORT | Continuity of Care Document ---
:1960 Author Organization [facility] Care Team Providers Name Role Phone [facility] Unavailable Un available Problems Problem Status Onset Classification Date Comments Sourc e Date Reported Hypertensive heart 07/12/19 01/17/2019 [facility] and chronic kidney 19 edical disease with heart C enter failure and with stage 5 chronic kidney disease, or end stage renal disease KIDNEY FAILURE Active 06/24/20 Tucker forrester [address] [place] [address] ISCHEMIC STROKE Active 01/09/[address] NUMBNESS Active 01/09/[address] Methicillin Active 06/11/20 Problem 01/17/2019 06/11/09 Nares- MRSA by PCR [facility] resistant 09 Problem added by Dis cern Expert. Medical Staphylococcus Terri nava, aureus (organism) [facility] [place] Cerebral 01/13/2017 infarction, [facility] End stage renal 01/17/2019 [facility] Chronic diastolic 01/17/2019 [facility] (congestive) heart edical failure Center Acidosis 01/17/2019 [facility] Unspecified 01/17/2019 Madelaine king protein-calorie Medi shreya malnutrition Center Cocaine use, 01/17/2019 [place] as unspecified, Medical uncomplicated Center Patient's 01/17/2019 [facility] noncompliance with edical other medical Center treatment and regimen Nicotine 01/17/2019 [facility] dependence, Medical cigarettes, Center uncomplicated Bipolar disorder, 01/17/2019 [facility] unspecified Medical Center Chronic 01/17/2019 [facility] obstructive Medical pulmonary disease, C enter unspecified Chronic viral 01/17/2019 Tucker forrester hepatitis C [facility] Center Hyperkalemia 01/17/2019 [facility] as Medical Center Hypertensive 01/17/2019 [place] as urgency Medical Center Anemia in chronic 01/17/2019 [facility] kidney disease Medic al Center Patient's 01/17/2019 [facility] noncompliance with edical renal dialysis Terri nava Vascular dementia 01/17/2019 [facility] without behavioral edical disturbance Center Dementia in other 01/17/2019 [facility] diseases Medical classified Center elsewhere without behavioral disturbance Hepatic failure, 01/17/2019 [facility] unspecified Medical without coma Center 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 Bipolar disorder Resolved Problem 01/17/2019 [facility] (disorder) Medical [place],[facility] Chronic kidney Resolved Problem 01/17/2019 [place] disease (disorder) M edical Center,[facility] Chronic Resolved Problem 01/17/2019 [facility] obstructive lung Med ical disease (disorder) C enter,[facility] Cerebrovascular Resolved Problem 01/17/2019 [facility] accident Medical (disorder) Center,[facility] Dialysis finding Resolved Problem 01/17/2019 started [facility] (finding) approx Medical 2014 Center,[facility] Disease of Resolved Problem 01/17/2019 [facility] gallbladder Medical (disorder) Center,[facility] Acute myocardial Resolved Problem 01/17/2019 [facility] infarction Medical (disorder) Center,[facility] Viral hepatitis C Resolved Problem 01/17/2019 [facility] (disorder) Medical [place],[facility] Hypertensive Resolved Problem 01/17/2019 [place] disorder, systemic edical arterial Center, (disorder) [facility] Simple obesity Active Problem 01/17/2019 [facility] [place] (disorder) Medical [place],[facility] Smoker (finding) Resolved Problem 01/17/2019 [facility] CEREBRAL Active INFARCTION, [facility] UNSPECIFIED [facility] ILLNESS, Active UNSPECIFIED [facility] Medications Medication Details Route Status Patient [...] No Longer [place] as as: Norvasc) Active [address] [place] [address] Insulin regular 60 units) Inactive [place] WASTE: F/P - 2018 Medical Black; E - Center Municipal Trash Bin Stable for 28 days at room temperature Expires in days from D ate Glucagon 1 mg, Route: Inactive [place] IM, Drug form: 2018 Medical PDR/INJ, PRN, Center Dosing Weight 45.085, kg, PRN Blood Glucose Results, Start date: 06/25/18 6:22:00 AIRCRAFT F[employer]ELER, Duration: 30 day, Stop date: 07/25/18 6:21:00 [employer] Dextrose 50% 12.5 gm, 25 mL, Inactive [place] Syringe Route: IVP, 2017 Medical Drug Form: INJ, [place] Dosing Weight 45.085, kg, PRN, PRN Blood Glucose Results, Start date: 06/25/18 6:22:00 AIRCRAFT F[employer]ELER, Duration: 30 day, Stop date: 07/25/18 6:21:00 [employer] NIFEdipine 30 Notes: (Same Inactive [place] mg oral tablet, as: Adalat CC, 2017 edical extended Procardia XL) Center release Give on empty stomach. Take 1 hour before or 2 hours after meal; "Avoid grapefruit and grapefruit juice". Do not crush Saline Flush Notes: (Same No Longer [place] 0.9% as: BD Active [address] [place] [address] Posiflush) [place] sennosides, SENIOR CARE Notes: (Same No Longer H [place] as: Senokot) Active [address] [place] [address] NIFEdipine 30 Notes: (Same Inactive [place] mg oral tablet, as: Adalat CC, 2017 edical extended Procardia XL) Center release Give on empty stomach. Take 1 hour before or 2 hours after meal; "Avoid grapefruit and grapefruit juice". Do not crush Docusate Notes: (Same No Longer [place] as: Colace) Active [address] [place] [address] heparin sodium, Notes: porcine No Longer [place] porcine 2500 heparin Active 2017 [facility] UNT/ML [place] Injectable Solution Cardene 40 mg Notes: Same as: No Longer [place] in NS 200 mL Cardene Active 2017 Medical (Titrate.) IV Concentration: Francisco ter 40 mg (0.2 mg /1 ml ) sevelamer 800 mg = 1 tab, No Longer [place] carbonate 800 PO, 0 Refill(s) Active 2017 Co dical MG Oral Tablet Center [Renvel] amLODIPine [...] [place] UNT/MG Topical as:Mycostatin, Active 2017 Co dical Powder Nilstat) For Center external use only. atorvastatin Notes: (Same No Longer As: Lipitor) Active 2016 [facility] aspirin 81 mg 81 mg = 1 tab, Active tablet, enteric PO, Daily, # 30 2017 [facility] coated tab, 0 City Refill(s) atorvastatin 10 10 mg = 1 tab, Active H mg oral tablet PO, Bedtime, # 2017 [place] morial 30 tab, 0 City Refill(s) heparin Notes: porcine No Longer heparin Active 2016 [facility] gabapentin 100 Notes: (Same No Longer MG Oral Capsule as: Neurontin) Active 2016 [facility] Saline Flush 10 ml, Route: Inactive 0.9% IVP, Drug Form: [address] [place] [address] INJ, Dosing City Weight 76.007, kg, Q12H, Start date: 01/08/17 21:00:00 CDT, Duration: 30 day, Stop date: 02/07/17 9:00:00 CDT Hydroxyzine Notes: (Same No Longer as: Atarax) Active [address] [place] [address] Avoid alcohol. [facility] ARIPiprazole Notes: No Longer Non-Formulary Active [address] [place] [address] Drug. (Same City as: Abilify) Amlodipine Notes: (Same No Longer as: Norvasc) Active 2016 [facility] Sertraline Notes: (Same No Longer as: Zoloft) Active 2016 [facility] Clonidine Notes: (Same No Longer Hydrochloride As: Catapres) Active 2016 [place] rial 0.2 MG Oral [facility] Tablet 200 ACTUAT Notes: SEE RT No Longer Albuterol 0.09 DOCUMENTATION Active 2016 Mem orial MG/ACTUAT (Same as: [facility] Metered Dose Proventil) Inhaler [ProAir HFA] Hydralazine Notes: (Same No Longer as: Apresoline) Active 2016 [facility] Push over 5 [facility] minutes Clonidine 0.1 mg = 0.5 Active Hydrochloride tab, PO, TID, 0 2016 Me morial 0.2 MG Oral Refill(s) [facility] Tablet ARIPiprazole 10 10 mg = 1 tab, Active H mg oral tablet PO, Daily, # 30 2016 [facility] tab, 0 [facility] Refill(s) Amlodipine 10 mg, PO, Active Daily, 0 2016 [facility] Refill(s) [facility] sertraline 50 50 mg = 1 tab, Active mg oral tablet PO, Daily, 0 2016 [place] rial Refill(s) [facility] gabapentin 100 300 mg = 3 cap, Active H MG Oral Capsule PO, Bedtime, 0 2016 [facility] Refill(s) [facility] Hydroxyzine 50 mg, PO, TID, Active 0 Refill(s) 2016 [facility] Enoxaparin Notes: (Same No Longer as: Lovenox) Active 2016 [facility] aspirin 81 mg Notes: Do not No Longer tablet, enteric crush or chew. Active 2016 [facility] coated (Same As: [facility] Ecotrin) Famotidine Notes: (Same No Longer as: Pepcid) Active 2016 [facility] Sodium Chloride 25 mL, Route: No Longer 0.9% IV IVP, Start Active [address] [place] [address] date: 01/08/17 [facility] 16:48:00 CDT, Duration: 30 day, Stop date: 02/07/17 16:47:00 CDT, PRN Line Flush BD Normal Notes: (Same No Longer Saline Flush as: BD Active 2016 [facility] Posiflush) [facility] BD Normal Notes: (Same No Longer Saline Flush as: BD Active 2016 [facility] Posiflush) [facility] Saline Flush 10 ml, Route: Inactive 0.9% IVP, Drug Form: 2016 [facility] INJ, Dosing [facility] Weight 76.007, kg, PRN, PRN Line Flush, [...] [place] Madelaine king 13-valent vaccine 7 deltoid [facility] tetanus-diphtheri Right completed Katya [facility] a toxoids 9 [facility] Results Order Name Results Value Reference Date Interpretation Comments Rula rce Range CHEM PANEL Magnesium 2.2 1.8 - 2.4 06/30 [facility] [facility] CHEM PANEL Phosphorus 4.6 2.5 - 4.5 06/30 [facility]2017 [facility] CHEM PANEL eGFR 8 06/30 Result [...] ALT 15 0 - 65 06/[address] CHEM PANEL AST 14 0 - 37 06/[address] CHEM PANEL Globulin 3.8 2.7 - 4.2 06/[address] CHEM PANEL A/G Ratio 0.8 0.7 - 1.6 06/[address] CHEM PANEL Albumin Lvl 3.2 3.5 - 5.0 06/30 [facility] CHEM PANEL Total 7.0 6.4 - 8.4 06/30 [facility] Protein [facility] CHEM PANEL B/C Ratio 8 6 - 25 06/[address] CHEM PANEL Bili Total 0.5 0.2 - 1.3 06/[address] CHEM PANEL Alk Phos 130 39 - 136 06/[address] CHEM PANEL Glucose Lvl 88 70 - 99 06/[address] CHEM PANEL BUN 48 7 - 22 06/[address] CHEM PANEL Calcium Lvl 8.0 8.5 - 10.5 06/30 [facility] CHEM PANEL AGAP 13.5 10.0 - 06/30 [place] 20.0 [facility] CHEM PANEL Chloride Lvl 104 95 - 109 06/30 [facility] CHEM PANEL CO2 24 24 - 32 06/[address] CHEM PANEL Creatinine 5.89 0.50 - 06/30 [place] Lvl 1.40 [facility] CHEM PANEL Sodium Lvl 137 135 - 145 06/[address] CHEM PANEL Potassium 4.5 3.5 - 5.1 06/30 [place] Lvl /2017 [facility] HEMATOLOGY MCH 27.7 27.0 - 06/30 [place] 31.0 [facility] HEMATOLOGY Hct 28.3 36.0 - 06/30 [place] 48.0 [facility] HEMATOLOGY MCV 85.6 80.0 - 06/30 [place] 98.0 [facility] HEMATOLOGY MCHC 32.3 32.0 - 06/30 [place] 36.0 [facility] HEMATOLOGY RDW 16.0 11.5 - 06/30 [place] 14.5 /2017 [facility] HEMATOLOGY Platelet 141 133 - 450 06/30 [facility]2017 [facility] HEMATOLOGY MPV 8.5 7.4 - 10.4 06/30 [facility] /[address] [place] [address] HEMATOLOGY WBC 4.4 3.7 - 10.4 06/30 [facility] /2018 [facility] HEMATOLOGY RBC 3.31 4.20 - 06/30 [place] 5.40 [facility] HEMATOLOGY Hgb 9.2 12.0 - 06/30 [place] 16.0 [facility] HEMATOLOGY Monocytes # 0.9 0.0 - 0.8 06/30 [place] /2017 [facility] HEMATOLOGY Anisocyte 1+ None Seen 06/30 [facility] *ABN* /2017 [facility] (06/30/18 5:16 AM) Cente r HEMATOLOGY Eosinophils 0.1 0.0 - 0.5 06/30 [facility] # /2018 [facility] HEMATOLOGY Target Cell Slight 06/[address] HEMATOLOGY Monocytes 20.2 2.0 - 12.0 06/[address] HEMATOLOGY Basophils 0.9 0.0 - 1.0 06/[address] HEMATOLOGY Lymphocytes 32.1 20.0 - 06/30 [place] 40.0 [facility] HEMATOLOGY Eosinophils 1.2 0.0 - 4.0 06/30 [facility] s /[address] [place] [address] HEMATOLOGY Neutrophils 2.0 1.5 - 8.1 06/30 [facility] # /2018 [facility] HEMATOLOGY Lymphocytes 1.4 1.0 - 5.5 06/30 [facility] s # /[address] [place] [address] HEMATOLOGY Segs 45.6 45.0 - 06/30 [facility] 75.0 [facility] HEMATOLOGY Plt Morph Normal 06/30 [facility] (06/30/18 5:16 AM) /2017 [facility] ANEMIA Iron 61 30 - 160 06/29 [facility] STUDY /2018 [facility] ANEMIA TIBC 223 228 - 428 06/29 [facility] [place] [facility] /[address] [place] [address] ANEMIA UIBC 162 110 - 370 06/29 [facility] [place] [facility] /2017 [facility] ANEMIA % Satur Fe 27 12 - 57 06/29 [facility] [place] [facility] /[address] [place] [address] ANEMIA Ferritin Lvl 428 5 - 204 06/[address] CHEM PANEL Phosphorus 3.6 2.5 - 4.5 06/[address] CHEM PANEL Magnesium 2.2 1.8 - 2.4 06/29 [facility] [facility] /[address] [place] [address] CHEM PANEL Bili Total 0.5 0.2 - 1.3 06/29 [facility] CHEM PANEL Alk Phos 140 39 - 136 06/29 [facility] CHEM PANEL AST 13 0 - 37 06/29 [facility] CHEM PANEL ALT 14 0 - 65 06/29 [facility] CHEM PANEL eGFR 13 06/29 Result [...] Albumin Lvl 3.0 3.5 - 5.0 06/29 [facility] CHEM PANEL Total 7.1 6.4 - 8.4 06/29 [facility] CHEM PANEL Chloride Lvl 104 95 - 109 06/29 [facility] CHEM PANEL Calcium Lvl 7.6 8.5 - 10.5 06/29 [facility] CHEM PANEL CO2 25 24 - 32 06/29 [facility]2017 [facility] CHEM PANEL Potassium 4.2 3.5 - 5.1 06/29 [facility] CHEM PANEL Sodium Lvl 138 135 - 145 06/29 [facility]2017 [facility] CHEM PANEL Glucose Lvl 95 70 - 99 06/29 [facility]2017 [facility] CHEM PANEL BUN 30 7 - 22 06/29 [facility]2017 [facility] CHEM PANEL Creatinine 4.15 0.50 - 06/29 [facility] 1.40 [facility] CHEM PANEL AGAP 13.2 10.0 - 06/29 [place] 20.0 [facility] CHEM PANEL A/G Ratio 0.7 0.7 - 1.6 06/[address] CHEM PANEL Globulin 4.1 2.7 - 4.2 06/[address] CHEM PANEL B/C Ratio 7 6 - 25 06/[address] HEMATOLOGY MPV 8.2 7.4 - 10.4 06/[address] HEMATOLOGY RDW 16.5 11.5 - 06/29 [place] 14.5 [facility] HEMATOLOGY Platelet 131 133 - 450 06/[address] HEMATOLOGY MCV 85.3 80.0 - 06/29 [facility] 98.0 [facility] HEMATOLOGY MCH 27.9 27.0 - 06/29 [place] 31.0 [facility] HEMATOLOGY MCHC 32.7 32.0 - 06/29 [facility] 36.0 /2017 [facility] HEMATOLOGY RBC 3.40 4.20 - 06/29 [place] 5.40 /2017 [facility] HEMATOLOGY Hgb 9.5 12.0 - 06/29 [place] 16.0 [facility] HEMATOLOGY WBC 5.3 3.7 - 10.4 06/[address] HEMATOLOGY Hct 29.0 36.0 - 06/29 [place] 48.0 [facility] HEMATOLOGY Retic Auto 1.6 0.5 - 1.5 06/29 [facility]2017 [facility] HEMATOLOGY Monocytes 20.2 2.0 - 12.0 06/[address] HEMATOLOGY Segs 50.7 45.0 - 06/29 [place] 75.0 [facility] HEMATOLOGY Lymphocytes 27.3 20.0 - 06/29 [place] 40.0 [facility] HEMATOLOGY Monocytes # 1.1 0.0 - 0.8 06/29 [place] /2018 [facility] HEMATOLOGY Eosinophils 0.1 0.0 - 0.5 06/29 [place] # /2017 [facility] HEMATOLOGY Basophils 0.7 0.0 - 1.0 06/[address] HEMATOLOGY Neutrophils 2.7 1.5 - 8.1 06/29 [place] # /2018 [facility] HEMATOLOGY Eosinophils 1.1 0.0 - 4.0 06/29 [place] /2018 [facility] HEMATOLOGY Lymphocytes 1.5 1.0 - 5.5 06/29 [place] [facility] CHEM PANEL Magnesium 2.2 1.8 - 2.4 06/28 [facility] CHEM PANEL Phosphorus 4.1 2.5 - 4.5 06/28 [facility]2017 [facility] CHEM PANEL eGFR 6 06/28 Result [...] PANEL CO2 25 24 - 32 06/28 [facility] CHEM PANEL Glucose Lvl 94 70 - 99 06/28 [facility]2017 [facility] CHEM PANEL BUN 49 7 - 22 06/[address] CHEM PANEL Potassium 4.3 3.5 - 5.1 06/28 [facility] [facility] CHEM PANEL Creatinine 7.38 0.50 - 06/28 [facility] Lvl 1.40 [facility] CHEM PANEL Sodium Lvl 136 135 - 145 06/28 [facility]2017 [facility] CHEM PANEL Chloride Lvl 103 95 - 109 06/28 [place] [facility] CHEM PANEL Albumin Lvl 3.1 3.5 - 5.0 06/28 [place] [facility] CHEM PANEL Calcium Lvl 7.6 8.5 - 10.5 06/28 [place] [facility] CHEM PANEL Total 6.9 6.4 - 8.4 06/28 [facility] CHEM PANEL AST 13 0 - 37 06/[address] CHEM PANEL Alk Phos 125 39 - 136 06/[address] CHEM PANEL ALT 11 0 - 65 06/28 [facility] CHEM PANEL Bili Total 0.5 0.2 - 1.3 06/28 [facility] CHEM PANEL Globulin 3.8 2.7 - 4.2 06/28 2017 [facility] CHEM PANEL B/C Ratio 7 6 - 25 06/28 2017 [facility] CHEM PANEL A/G Ratio 0.8 0.7 - 1.6 06/28 2017 [facility] CHEM PANEL AGAP 12.3 10.0 - 06/28 [place] 20.0 [facility] HEMATOLOGY MPV 8.5 7.4 - 10.4 06/28 [facility] HEMATOLOGY Platelet 145 133 - 450 06/28 [facility] HEMATOLOGY RDW 16.0 11.5 - 06/28 [place] 14.5 [facility] HEMATOLOGY MCHC 31.5 32.0 - 06/28 [place] 36.0 [facility] HEMATOLOGY MCH 26.9 27.0 - 06/28 [place] 31.0 [facility] HEMATOLOGY MCV 85.6 80.0 - 06/28 [place] 98.0 [facility] HEMATOLOGY Hct 29.4 36.0 - 06/28 [place] 48.0 [facility] HEMATOLOGY RBC 3.43 4.20 - 06/28 [place] 5.40 [facility] HEMATOLOGY WBC 5.1 3.7 - 10.4 06/28 /2017 [facility] HEMATOLOGY Hgb 9.2 12.0 - 06/28 [place] 16.0 2018 [facility] HEMATOLOGY Basophils # 0.1 0.0 - 0.2 06/28 [place] /2017 [facility] HEMATOLOGY Eosinophils 0.1 0.0 - 0.5 06/28 [place] # /2017 [facility] HEMATOLOGY Monocytes # 0.9 0.0 - 0.8 06/28 [place] /2018 [facility] HEMATOLOGY Monocytes 17.7 2.0 - 12.0 06/28 [place] [facility] HEMATOLOGY Segs 52.2 45.0 - 06/28 [place] 75.0 [facility] HEMATOLOGY Lymphocytes 27.8 20.0 - 06/28 [place] 40.0 /2018 [facility] HEMATOLOGY Lymphocytes 1.4 1.0 - 5.5 06/28 [place] # /2017 [facility] HEMATOLOGY Neutrophils 2.7 1.5 - 8.1 06/28 [place] # /2017 [facility] HEMATOLOGY Basophils 1.0 0.0 - 1.0 06/28 [facility] HEMATOLOGY Eosinophils 1.3 0.0 - 4.0 06/28 [facility] /2017 [facility] AMINO ACID MMA Qnt 589 0 - 378 06/27 [facility] /[address] [place] [address] AMINO ACID Homocyst Tot 40.6 0.0 - 15.0 06/27 [place] [facility] ANEMIA Vitamin B12 521 254 - 1320 06/27 [facility] STUDY Lvl [facility] CHEM PANEL Ammonia 29.0 <=45.0 06/27 [facility] uMol/L [facility] IMMUNOLOGY RPR Non-Reactive Non 06/27 [facility] (06/27/18 1:12 PM) [facility] MOLECULAR HCV RNA <1.2 06/26 [facility] DIAGNOSTIC Log10 [facility] MOLECULAR HCV RNA Not Detected 06/26 [facility] DIAGNOSTIC VirLoad (06/26/18 2:58 PM) [facility] URINE AND UA <=1.0 0.1 - 1.0 06/26 [facility] STOOL Urobilinogen mg/dL [facility] URINE AND UA WBC 2 0 - 5 06/26 [facility] [address] [place] [address] URINE AND UA Leuk Est Negative Negative 06/26 [facility] (06/26/18 8:03 AM) [facility] URINE AND UA Nitrite Negative Negative 06/26 [facility] (06/26/18 8:03 AM) [facility] URINE AND UA Sq Epi None Seen 06/26 [facility] URINE AND UA RBC <1 0 - 2 06/26 [facility] [address] [place] [address] URINE AND UA Glucose Negative Negative 06/26 [facility] STOOL mg/dL mg/dL [facility] URINE AND UA Protein 50 mg/dL Negative 06/26 [facility] STOOL mg/dL [facility] URINE AND UA Blood Negative Negative 06/26 [facility] (06/26/18 8:03 AM) [facility] URINE AND UA pH 7.5 5.0 - 8.0 06/26 [facility] /[address] [place] [address] URINE AND UA Bili Negative Negative 06/26 [facility] STOOL *NA* /2017 [facility] (06/26/18 8:03 AM) Cente r URINE AND UA Ketones Negative Negative 06/26 [facility] STOOL mg/dL mg/dL [facility] URINE AND UA Color Light Yellow Yellow 06/26 [facility] STOOL *NA* Medical (06/26/18 8:03 AM) [place] URINE AND UA Spec Grav 1.004 <=1.030 06/26 [facility] STOOL /2017 [facility] URINE AND UA Turbidity Clear Clear 06/26 [facility] STOOL (06/26/18 8:03 AM) [facility] IMMUNOLOGY Hep Bs Ab 66.7 <=7.4 06/24 [place] mIU/mL [facility] IMMUNOLOGY Hep C Ab Positive 06/24 [place] *ABN* Medical (06/24/18 1:39 PM) [place] IMMUNOLOGY Hep B Core Negative Negative 06/24 [place] Ab *NA* Medical (06/24/18 1:39 PM) [place] IMMUNOLOGY Hep B Core Negative Negative 06/24 [facility] IgM *NA* Medical (06/24/18 1:39 PM) [place] IMMUNOLOGY Hep Bs Ag Negative Negative 06/24 [place] *NA* /2017 Medical (06/24/18 1:39 PM) [place] BACTERIAL - MRSA by PCR Negative 06/24 [facility] (06/24/18 1:[address] PM) [facility] CARDIAC Troponin-I 0.05 0.00 - 06/24 [facility] ENZYMES 0.40 /2017 [facility] CARDIAC BNP 1954 <=100 06/24 [facility] ENZYMES pg/mL [facility] CARDIAC proBNP 96870 0 - 125 06/24 [facility] ENZYMES /2017 [facility] CHEM PANEL Bili Direct 0.1 0.0 - 0.3 06/24 [place] /2017 [facility] CHEM PANEL Bili 0.8 0.0 - 1.0 06/24 [place] Indirect /2017 [facility] HEMATOLOGY PTT 36.4 22.9 - 06/24 [place] 35.8 [facility] HEMATOLOGY PT 15.4 12.0 - 06/24 [place] 14.7 [facility] HEMATOLOGY INR 1.24 0.85 - 06/24 [place] 1.17 [facility] HEMATOLOGY Basophils # 0.1 0.0 - 0.2 06/24 [place] [facility] IMMUNOLOGY HIV Ag/Ab Negative Negative 06/24 [facility] 4th Gen *NA* /2017 Medical (06/24/18 1:05 PM) Cente r MOLECULAR Influenza A Negative Negative 06/24 [facility] DIAGNOSTIC PCR (06/24/18 1:05 PM) /2017 [facility] MOLECULAR Source [employer] Swab 06/24 [place] as DIAGNOSTIC Respiratory (06/24/18 1:05 PM) Medical [facility] PCR Center MOLECULAR Influenza B Negative Negative 06/24 [facility] DIAGNOSTIC PCR (06/24/18 1:05 PM) [facility] Negative Negative 06/24 [facility] DIAGNOSTIC (06/24/18 1:05 PM) [facility] PARATHYROID Ca Ion WB 0.92 1.05 - 06/24 [place] PROFILE . [facility] PARATHYROID Ca Norm WB 0.86 1.05 - 06/24 Result [facility] 07.27 Comment: [facility] RESULT CALLED TO SHERRI BELLA AT 06/24/2018 15:42 BY SXP. READ BACK OK. SPECIAL Hgb A1C <3.5 % <=5.6 % 06/24 [facility] CHEMISTRY /2017 [facility] CHEM PANEL eGFR 14 01/10 Result Comment: [facility] eGFR is City calculated using the [...] Creatinine 3.84 0.50 - 01/10 Lvl 1.40 [facility] CHEM PANEL Calcium Lvl 8.3 8.5 - 10.5 01/10 [facility] CHEM PANEL AGAP 10.1 10.0 - 01/10 20.0 [facility] CHEM PANEL CO2 32 24 - 32 01/10 [facility] CHEM PANEL Chloride Lvl 102 95 - 109 01/10 [facility] CHEM PANEL Potassium 4.1 3.5 - 5.1 01/10 MH Lvl /2016 [facility] CHEM PANEL Sodium Lvl 140 135 - 145 01/10 [facility] CHEM PANEL BUN 9 7 - 22 01/10 [facility] CHEM PANEL Glucose Lvl 91 70 - 99 01/10 [facility] CHEM PANEL Phosphorus 2.6 2.5 - 4.5 01/10 [facility] IMMUNOLOGY Hep Bs Ag Negative Negative 01/09 *NA* /2016 [facility] (01/09/17 6:45 PM) [facility] DRUG SCREEN UDS Note See Note 01/08 *NA* /2016 [facility] (01/08/17 6:00 PM) [facility] DRUG SCREEN U Benzodia Negative Negative 01/08 Scr *NA* /2016 [facility] (01/08/17 6:00 PM) [facility] DRUG SCREEN U Pinky Scr Negative Negative 01/08 *NA* /2016 [facility] (01/08/17 6:00 PM) [facility] DRUG SCREEN U Cocaine Negative Negative 01/08 Scr *NA* /2016 [facility] (01/08/17 6:00 PM) [facility] DRUG SCREEN U Cannab Scr Negative Negative 01/08 *NA* /2016 [facility] (01/08/17 6:00 PM) [facility] DRUG SCREEN U Phencyc Negative Negative 01/08 Scr *NA* /2016 [facility] (01/08/17 6:00 PM) [facility] DRUG SCREEN U Opiate Scr Negative Negative 01/08 *NA* [facility] (01/08/17 6:00 PM) [facility] DRUG SCREEN U Amph Scr Negative Negative 01/08 *NA* /2016 [facility] (01/08/17 6:00 PM) [facility] URINE AND UA <=1.0 0.1 - 1.0 01/08 STOOL Urobilinogen mg/dL /2016 [facility] URINE AND UA Ketones Negative 01/08 STOOL /2016 [facility] URINE AND UA Color Straw 01/08 STOOL /2016 [facility] URINE AND UA pH >=9.0 5.0 - 8.0 01/08 STOOL *ABN* /2016 [facility] (01/08/17 6:00 PM) [facility] URINE AND UA RBC <1 0 - 2 01/08 STOOL /2016 [facility] URINE AND UA WBC 1 0 - 5 01/08 STOOL /2016 [facility] URINE AND UA Glucose Negative Negative 01/08 STOOL mg/dL mg/dL /2016 [facility] URINE AND UA Spec Grav 1.004 <=1.030 01/08 STOOL /2016 [facility] URINE AND UA Nitrite Negative Negative 01/08 STOOL (01/08/17 6:00 PM) /2016 [facility] URINE AND UA Protein 30 mg/dL Negative 01/08 STOOL mg/dL /2016 [facility] URINE AND UA Turbidity Clear Clear 01/08 STOOL (01/08/17 6:00 PM) /2016 [facility] URINE AND UA Bili Negative Negative 01/08 STOOL *NA* /2016 [facility] (01/08/17 6:00 PM) [facility] URINE AND UA Blood Negative Negative 01/08 STOOL (01/08/17 6:00 PM) /2016 [facility] URINE AND UA Mucus Few /LPF None Seen 01/08 STOOL /LPF /2016 [facility] URINE AND UA Sq Epi Few /LPF Few /LPF 01/08 STOOL /2016 [facility] URINE AND UA Leuk Est Negative Negative 01/08 STOOL (01/08/17 6:00 PM) /2016 [facility] URINE AND UA Bacteria Occasional None Seen 01/08 STOOL /HPF /HPF /2016 [facility] HEMATOLOGY PTT 36.2 22.9 - 01/08 35.8 /2016 [facility] HEMATOLOGY INR 1.05 0.85 - 01/08 1.17 /2016 [facility] HEMATOLOGY PT 13.9 12.0 - 01/08 MH 14.7 /2016 [facility] LIPIDS VLDL 22 01/08 MH /2016 [facility] LIPIDS LDL 50 <=99 mg/dL 01/08 (Calculated) /2016 [facility] LIPIDS Chol 145 <=199 01/08 mg/dL [facility] LIPIDS Trig 109 <=149 01/08 mg/dL /2016 [facility] LIPIDS HDL 73 >=61 mg/dL 01/08 /2016 [facility] LIPIDS CHD Risk 1.99 3.90 - 01/08 5.80 /2016 [facility] SPECIAL Hgb A1C 4.6 <=5.6 % 01/08 CHEMISTRY /2016 [facility] CHEM PANEL B/C Ratio 3 6 - 25 01/08 [facility] CHEM PANEL AGAP 14.4 10.0 - 07/ MH 20.0 /2017 [facility] CHEM PANEL Globulin 5.5 2.7 - 4.2 01/08 [facility] CHEM PANEL A/G Ratio 0.6 0.7 - 1.6 01/08 [facility] CHEM PANEL eGFR 8 01/08 Result Comment: [facility] eGFR is City calculated using the [...] Glucose Lvl 85 70 - 99 01/08 [facility] CHEM PANEL CO2 26 24 - 32 01/08 [facility] CHEM PANEL ALT 14 0 - 65 01/08 [facility] CHEM PANEL Creatinine 6.23 0.50 - 07 MH Lvl 1.40 /2016 [facility] CHEM PANEL Albumin Lvl 3.3 3.5 - 5.0 01/08 [facility] CHEM PANEL BUN 16 7 - 22 01/08 [facility] CHEM PANEL AST 24 0 - 37 / [facility] CHEM PANEL Bili Total 0.5 0.2 - 1.3 01/08 [facility] CHEM PANEL Total 8.8 6.4 - 8.4 01/08 MH [facility] CHEM PANEL Alk Phos 215 39 - 136 01/08 [facility] CHEM PANEL Chloride Lvl 101 95 - 109 01/08 [facility] CHEM PANEL Potassium 5.4 3.5 - 5.1 01/08 MH Lvl /2016 [facility] CHEM PANEL Calcium Lvl 9.1 8.5 - 10.5 07/ [facility] CHEM PANEL Sodium Lvl 136 135 - 145 07/ [facility] CHEM PANEL Magnesium 2.4 1.8 - 2.4 / Lvl /2016 [facility] HEMATOLOGY Hgb 10.5 12.0 - 07 MH 16.0 /2016 [facility] HEMATOLOGY Hct 31.5 36.0 - 07 MH 48.0 /2016 [facility] HEMATOLOGY WBC 9.0 3.7 - 10.4 07/ /2016 [facility] HEMATOLOGY RBC 3.70 4.20 - 01/08 MH 5.40 /2016 [facility] HEMATOLOGY MCV 85.3 80.0 - 01/08 98.0 /2016 [facility] HEMATOLOGY MCH 28.5 27.0 - 01/08 MH 31.0 /2016 [facility] HEMATOLOGY MCHC 33.4 32.0 - 01/08 MH 36.0 /2016 [facility] HEMATOLOGY RDW 12.9 11.5 - 01/08 MH 14.5 /2016 [facility] HEMATOLOGY Platelet 212 133 - 450 07 [facility] HEMATOLOGY MPV 9.0 7.4 - 10.4 07 [facility] HEMATOLOGY Monocytes 12.8 2.0 - 12.0 01/08 [facility] HEMATOLOGY Segs 43.7 45.0 - 01/08 75.0 /2016 [facility] HEMATOLOGY Lymphocytes 40.4 20.0 - 01/08 40.0 /2016 [facility] HEMATOLOGY Segs-Bands # 4.0 1.5 - 8.1 01/08 [facility] HEMATOLOGY Eosinophils 1.9 0.0 - 4.0 01/08 [facility] HEMATOLOGY Monocytes # 1.2 0.0 - 0.8 01/08 [facility] HEMATOLOGY Lymphocytes 3.7 1.0 - 5.5 01/08 [facility] HEMATOLOGY Basophils 1.2 0.0 - 1.0 01/08 [facility] HEMATOLOGY Eosinophils 0.2 0.0 - 0.5 01/08 # /2016 [facility] HEMATOLOGY Basophils # 0.1 0.0 - 0.2 01/08 [facility] Pathology Reports No Data Provided for This Section Diagnostic Reports Report Value Date Source Chest 2 views DX EXAM: XR CHEST 1 VIEW 06/25/2018 [facility] DATE: 06/25/2018 5:32 [employer] Center INDICATION: - bilateral patchy opacities COMPARISON: [...] DX EXAM: XR CHEST 1 VIEW 06/24/2018 [facility] edical DATE: 06/24/2018 12:03 [facility] IND[facility]: - icu ad. FINDINGS: [...] contrast MRI 01/08/2017 4:41 PM CDT 03/2017 [facility] MRI Clinical Indication: Hemihyp estesia [facility] CT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 infarction; [...] Comments Source Systolic (mm Hg) 158 06/30/[address] [facility] Center Diastolic (mm Hg) 76 06/30/2018 [facility] Systolic (mm Hg) 149 06/30/[address] [facility] Center Diastolic (mm Hg) 69 06/30/2018 [facility] Systolic (mm Hg) 156 06/30/[address] [facility] Center Diastolic (mm Hg) 62 06/30/2018 [facility] Temperature Oral (F) 96.5 F 06/30/2018 [facility] Respitory Rate 20 06/30/2018 [facility] Heart Rate 83 06/30/2018 [facility] Temperature Oral (F) 96.3 F 06/30/2018 [facility] Respitory Rate 20 06/30/2018 [facility] Heart Rate 60 06/30/2018 [facility] Temperature Oral (F) 96.5 F 06/30/2018 [facility] Heart Rate 60 06/30/2018 [facility] Respitory Rate 20 06/30/2018 [facility] BMI Calculated 19.41 06/24/2018 [facility] Weight 45.085 06/24/[address] [facility] Height 152.4 cm 06/24/2018 [facility] Systolic (mm Hg) 128 01/10/2017 [facility] Diastolic (mm Hg) 72 01/10/2017 [facility] Respitory Rate 14 01/10/[address] [facility] Systolic (mm Hg) 100 01/10/2017 [facility] Diastolic (mm Hg) 72 01/10/2017 [facility] Respitory Rate 24 01/10/[address] [facility] Systolic (mm Hg) 118 01/10/2017 [facility] Diastolic (mm Hg) 60 01/10/2017 [facility] Respitory Rate 19 01/10/[address] [facility] BMI Calculated 32.73 01/08/[address] [facility] Weight 76.007 01/08/2017 [facility] y Height 152.4 cm 01/08/2017 [facility] y Encounters Location Location Encounter Encounter Reason Attending ADM DC Stat us Source Details Type Number For Provider Date Date Visit [facility] [id number] Tom 01/09 01/10 Cullen Wood /2016 [facility] Inpatient [id number] Adrian 06/24 06/30 Porsche Simental /2017 [facility] Procedures Procedure Code Date Perfomer Comments Source section [id number] [facility] Cholecystectomy [id number] [facility] Assessment and Plan Assessment and Plan Date Source Extracted from:Title: FM R1 Discharge Summary 06/30/2018 [facility] Author: Daniel Murray MD PHD Date: 07/01/18 [...] emergent HD 2/2 hyperkalemia/uremia Final Diagnosis/Diagnoses: Acutepulmonaryedema [id number] ESRD(endstagerenaldisease) Hepaticencephalopathy Malnutrition cognitive impairment 2/2 suspected [...] Hepatitis C who presented as transfer from [facility] for emergent dialysis. She presented to outside [...] of Clonidine (home med) and transferred to [facility] for emergent dialysis as a direct ICU transfer. At [facility], patient's BP got as high [...] with pt's sister, 2 brother s, aunt, [id number], and 2 daughters. Family apparently beleived pt [...] moving in w ith her brother and [id number]. PCP was contacted and giv en our [...] Zachery Fuentes, Call for appointment , PH: [phone], within: 2 Weeks, reason: Primary Care Physician follow up post hospitalization Daniel Murray MD/PhD Family Medicine PGY1 MSO# [id number] Extracted from:Title: IN Nephrology progress note Author: Angela Howard DO Date: 06/30/18 NEPHROLOGY PROGRESS NOTE Attending: Adrian Simental MD Service: [facility] Service Code status: Full Code Reason for Admission: KIDNEY FAILURE Working DRG: Isolation: No Isolation/Standard Precautions Consulting Physicians: Neeta Lozano MD Office: [phone] Service: General Medicine, Nephrology Angela Howard DO [...] of Ms. To. Angela Howard, PGY5 P: [phone] C: [phone] Addendum by Rosamaria Palumbo MD on 06/30/2018 14:54 IN NEPHROLOGY STAFF ATTESTATION I saw this medically [...] previous cocaine abuse, bipolar disorder, COPD, CAD/ [place] 2012, Stroke in 2013, ESRD secondary to HTN started on HD 2 years ago. Patient usually has a TThS schedule and get transported to her HD center (in [facility]) with a car service last HD about 2 weeks ago per patient, h er transport service stopped coming and she never followed up afterwards presented to [facility] th 3 days of shortness of breath and swollen breasts and arms, found to have hypertensive urgency, hyperkalemia and pulmonary edema 1-ESRD: Secondary toHTN Duration 2 years HD center [facility] dialysis in [place] [employer] unknown to patient HD schedule TThS Last HD 2 weeks ago Dry weight unknown to patient Access left upper extremity AVF HD order for today- 2 hrs, 400/800, UF 1-3 kg as rommel will reassess tomorrow for further HDneeds 2-Volume status: pulmonary edema Hypervolemia Will control with iHD 3-Electrolytes: hyperkalemia Na, Ca, Mg unremarkable per OSH labs labs in [facility] pending Will control with iHD Renal diet [...] by Rosamaria Palumbo MD on 06/25/2018 21:43 [employer] IN NEPHROLOGY STAFF ATTESTATION I saw and evaluated this medically compl ex patient on 06/25/18. I have reviewed the labs and radiographic data, discussed the plans with the fellow and renal team, and agree with this note. Extracted from:Title: MICU History and Physical Author: Miguelito Valero MD Date: 06/24/18 58YOF with PMH ofESRD, COPD, CVA,HTN, He patitis C who presented as transfer from [facility] for emergent dialysis found to have Neuro: [...] _HD Antihypertensives Extracted from:Title: Clinical Document 01/10/2017 [facility] Author: Stefano Magana MD Date: [...] present . Stefano Magana M.D., [facility] Extracted from:Title: RENAL Author: Stefano Magana MD [...] TID. enoxaparin: 30 mg, 0.3 mL, SUB-Q, [id number]. famotidine: 20 mg, 1 tab, PO, Q12H. [...] 24hr Tot 0 0 0 CCL error: %ZWZ-U-571-SMT_EDOC_COMMON(0, 0)[id number] on array out of bound at (size:1,occur:10). CCL error: %WPR-J-708-SMT_EDOC_COMMON(0, 0)[id number] on array out of bound at (size:1,occur:5). CCL error: %JHX-F-102-SMT_EDOC_COMMON(0, 0)186195:1146Overflow on array out of bound at (size:1,occur:5). CCL error: %GGN-G-511-SMT_EDOC_COMMON(0, 0)160998:1146Overflow on array out of bound at (size:1,occur:7). CCL error: %UDM-H-480-SMT_EDOC_COMMON(0, 0)[id number]:1146Overflow on array out of bound at (size:1,occur:2). [...] Dr. Wood Magana M.D., [facility] Extracted from:Title: History and Physical Author: Brendan [...] History Date Source Social History TypeResponse 08/05/2013 [facility] Sexual Sexually active: No. Alcohol [...] Cessation Counseling No Social History TypeResponse 08/05/2013 [facility] Sexual Sexually active: No. Alcohol Past, Type [...]
--- OUTSIDE RECORDS SUMMARY | 2020-03-25 00:52 | XMS REPORT | Continuity of Care Document ---
:1960 Author Organization [facility] t Address [address] [place] [address] Care Team Providers Name Role Phone Maru Louie MD Primary Care Physician Feng Simental Attending Clinician Otoniel Muir Attending Clinician Feng Simental Admitting Clinician Otoniel Muir Admitting Clinician Problems Condition Condition Condition Status Onset Resolution Last Treating Co mments Source Name Details Category Date Date Treatment Clinician Date KIDNEY Diagnosis Active 2017-072018-07-11 Mem oria FAILURE 08-25 22:07:00 l KIDNEY 00:00: [place] FAILURE 00 Active 06/24/2018 [facility] ISCHEMIC Diagnosis Active 2017-01-08 [facility] STROKE 01-08 16:23:00 l ISCHEMIC 00:00: Josesito n STROKE 00 Active 01/08/2017 [facility]BN[facility] NUMBNESS 00:00: Josesito n 00 Active 01/08/2017 [facility] Atrial Atrial Disease Active [facility] [...] [facility]06 [facility] 00 [place] Bacteremia Bacteremia Disease Active [facility] Methicilli Problem Active 2008-072019-01-17 M homeroria n 2-10 13:57:27 l resistant 00:00: [place] Staphyloco Methicilli 00 ccus n aureus resistant (organism) Staphyloco ccus aureus (organism) Active 06/11/2009 Problem 01/17/2019 06/11/09 Nares- MRSA by PCRProblem added by Discern Expert. [facility] Coronary Coronary Problem [facility] - disease disease Memoria involving involving l [place] Out[place] coronary coronary ent artery of artery of Clin ics [place] heart, heart, angina angina presence presence unspecifie [...] [facility] - dialysis dialysis [facility]ori a [facility] End stage End stage Problem Active [facility] renal renal [facility] - disease disease [facility] l [facility] Insomnia, Insomnia, Problem Active [facility] unspecifie unspecifie Irma kes - d type d type Memoria l [facility] HTN, goal HTN, goal Problem Active [facility] below below [facility] - 130/80 130/80 Memoria l [facility] Vascular Vascular Problem [facility] dementia dementia [facility] - with with Memoria behavior behavior l disturbanc disturbanc Ou tpati e e ent Clinics Cerebral Problem 2017-01-13 Mem oria infarction 02:14:10 l , Cerebral Josesito n unspecifie infarction d , unspecifie d 01/13/2017 [facility] End stage Problem 2019-01-17 Me moria renal 13:57:27 l disease End [place] stage renal disease 01/17/2019 [facility] Chronic Problem 2019-01-17 [place] diastolic 13:57:27 l (congestiv Chronic Her holloway e) heart diastolic failure (congestiv e) heart failure 01/17/2019 [facility] Acidosis Problem 2019-01-17 Mem oria 13:57:27 l Acidosis Josesito n 01/17/2019 [facility] Unspecifie Problem 2019-01-17 M emoria d 13:57:27 l protein-ca Josesito n angi Unspecifie malnutriti d on protein-ca angi malnutriti on 01/17/2019 [facility] Cocaine Problem 2019-01-17 [place] use, 13:57:27 l unspecifie Cocaine Her holloway d, use, uncomplica unspecifie ruben d, uncomplica ruben 01/17/2019 [facility] Patient's Problem 2019-01-17 Me moria noncomplia 13:57:27 l nce with [place] other Patient's medical noncomplia treatment nce with and other regimen medical treatment and regimen 01/17/2019 [facility] Nicotine Problem 2019-01-17 Mem oria dependence 13:57:27 l , Nicotine Josesito n cigarettes dependence , , uncomplica cigarettes ruben , uncomplica ruben 01/17/2019 [facility] Bipolar Problem 2019-01-17 [place] disorder, 13:57:27 l unspecifie Bipolar Her holloway d disorder, unspecifie d 01/17/2019 [facility] Chronic Problem 2019-01-17 [place] obstructiv 13:57:27 l e Chronic [place] pulmonary obstructiv disease, e unspecifie pulmonary d disease, unspecifie d 01/17/2019 [facility] Chronic Problem 2019-01-17 [place] viral 13:57:27 l hepatitis Chronic Herm johann C viral hepatitis C 01/17/2019 [facility] Hyperkalem Problem 2019-01-17 M emoria ia 13:57:27 l [place] Hyperkalem ia 01/17/2019 [facility] Hypertensi Problem 2019-01-17 M emoria ve urgency 13:57:27 l [place] Hypertensi ve urgency 01/17/2019 [facility] Anemia in Problem 2019-01-17 Me moria chronic 13:57:27 l kidney Anemia [place] disease in chronic kidney disease 01/17/2019 [facility] Patient's Problem 2019-01-17 Me moria noncomplia 13:57:27 l nce with [place] renal Patient's dialysis noncomplia nce with renal dialysis 01/17/2019 [facility] Vascular Problem 2019-01-17 Mem oria dementia 13:57:27 l without Vascular Kayce nn behavioral dementia disturbanc without e behavioral disturbanc e 01/17/2019 [facility] Dementia Problem 2019-01-17 Mem oria in other 13:57:27 l diseases Dementia Herm johann classified in other elsewhere diseases without classified behavioral elsewhere disturbanc without e behavioral disturbanc e 01/17/2019 [facility] Hepatic Problem 2019-01-17 [place] failure, 13:57:27 l unspecifie Hepatic Her holloway d without failure, coma unspecifie d without coma 9 [facility] 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-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 13:57:27 l heart [place] disease of Atheroscle caddo rotic coronary heart artery disease of without [place] angina coronary pectoris artery without angina pectoris 01/17/2019 [facility] Bipolar Problem Resolve 2019-01-17 Mem oria disorder d 13:57:27 l (disorder) Bipolar Her holloway disorder (disorder) Resolved Problem 01/17/2019 [facility] Chronic Problem Resolve 2019-01-17 Mem oria kidney d 13:57:27 l disease Chronic Josesito n (disorder) kidney disease (disorder) Resolved Problem 01/17/2019 [facility] Chronic Problem Resolve 2019-01-17 Mem oria obstructiv d 13:57:27 l e lung Chronic [place]ullen disease obstructiv (disorder) e lung disease (disorder) Resolved Problem 01/17/2019 [facility] Cerebrovas Problem Resolve 2019-01-17 Memoria cular d 13:57:27 l accident [place] (disorder) Cerebrovas cular accident (disorder) Resolved Problem 01/17/2019 [facility] Dialysis Problem Resolve 2019-01-17 Me moria finding d 13:57:27 l (finding) Dialysis Her amie finding (finding) Resolved Problem 01/17/2019 started approx 2013 [facility] Disease of Problem Resolve 2019-01-17 Memoria gallbladde d 13:57:27 l r Disease [place]ullen (disorder) of gallbladde r (disorder) Resolved Problem 01/17/2019 [facility] Acute Problem Resolve 2019-01-17 [place] en[place] myocardial d 13:57:27 l infarction Acute Kayce nn (disorder) myocardial infarction (disorder) Resolved Problem 01/17/2019 [facility] Viral Problem Resolve 2019-01-17 [place] hepatitis d 13:57:27 l C Viral [place]ing (disorder) hepatitis C (disorder) Resolved Problem 01/17/2019 [facility] Hypertensi Problem Resolve 2019-01-17 Memoria ve d 13:57:27 l disorder, [place] systemic Hypertensi arterial ve (disorder) disorder, systemic arterial (disorder) Resolved Problem 01/17/2019 [facility] Smoker Problem Resolve 2019-01-17 [place] en[place] (finding) d 13:57:27 l Smoker C[place] (finding) Resolved Problem 01/17/2019 [facility] Simple Problem Active 2019-01-17 Memor ia obesity 13:57:27 l (disorder) Simple Herm johann obesity (disorder) Active Problem 01/17/2019 [facility] CEREBRAL Diagnosis Active 2017-01-08 M emoria INFARCTION 16:23:00 l , CEREBRAL Josesito n UNSPECIFIE INFARCTION D , UNSPECIFIE D Active [facility] ILLNESS, Diagnosis Active 2017-01-17 M emoria UNSPECIFIE 21:50:00 l D ILLNESS, Josesito n UNSPECIFIE D Active [facility] Hypertensi Problem 2018-2019-01-17 2019-01-17 Memoria ve heart 1-10 13:57:27 13:57:27 l and 04:12: [place] chronic Hypertensi 09 kidney ve heart disease and with heart chronic failure kidney and with disease stage 5 with heart chronic failure kidney and with disease, stage 5 or end chronic stage kidney renal disease, disease or end stage renal disease 07/12/2018 01/17/2019 [facility] Allergies, Adverse Reactions, Alerts Allergy Allergy Status Severity Reaction(s) Onset Inactive Treating Comm ents Source Name Type Date Date Clinician No Known No Known Active Memori a Medicati Medicati l on on [place] Leonard Allergherman s s Family History Family Member Diagnosis Comments Start Date Stop Date Source Natural mother Heart disease [facility] Social History Social Habit Start Date Stop Date Quantity Comments Source Sex Assigned At [facility] Cigarettes smoked 2016-02-25 2016-02-25 [facility] - current (pack per 00:00:00 00:00:00 [facility] day) - Reported Cigarette 2016-02-25 2016-02-25 [facility] - pack-years 00:00:00 00:00:00 [facility] History of tobacco 2015-11-25 Current smoker [facility] - use 00:00:00 [facility] Social History 2013-08-05 2013-08-05 [facility] 08:46:07 08:46:07 Smoking Status Start Date Stop Date Source Former smoker 2016-02-25 00:00:00 2016-02-25 00:00:00 [facility] Medications Ordered Filled Start Stop Current Ordering Indication Dosage Frequency Signature Comments Components Source Medication Medication Date Date Medication? Clinician (SIG) Name Name Michele Bautista 2019- No Patrick 1 puff [facility] Ellipta Ellipta 10-08 08- Jovel [facility]oria [facility] Ventolin Ventolin Yes Patrick [address] [facility] HFA HFA 1-16 Jovel needed [facility] - 00:[facility]: Memoria 00 l [facility] Docusate 2017-07 Yes 50 mg = 1 [place] en[place] Sodium 50 2-28 cap, PO, l MG Oral 22:57: BID, PRN Josesito n Capsule 00 Constipati on, Take 1-2 tabs daily to maintain soft formed stools., # 180 cap, 0 Refill(s) POLYETHYLEN 2017-07 Yes 17 gm = 1 M emoria E GLYCOL 2-28 pkt, GT, l 3350 22:57: Daily, As [place]ing 00 needed for constipati on, 0 Refill(s) [...] Blood Glucose Results, Start date: 06/25/18 6:22:00 [employer], Duration: 30 day, Stop date: 07/25/18 6:21:00 [employer] Dextrose 2017-07 No 12.5 gm, Memor ia 50% Syringe 2-24 25 mL, l 12:22: Route: IVP, Drug Form: INJ, Dosing Weight 45.085, kg, PRN, PRN Blood Glucose Results, Start date: 06/25/18 6:22:00 [employer], Duration: 30 day, Stop date: 07/25/18 6:21:00 [employer] NIFEdipine 2017-07 No Notes: Memor ia 30 mg oral 2-24 (Same as: l tablet, 04:34: Adalat CC, Herm johann extended 00 Procardia release XL) Give on empty stomach. Take 1 hour before or 2 hours after meal; "Avoid grapefruit and grapefruit juice". Do not crush Saline 2017-07 No Notes: Memoria Flush 0.9% 2-24 (Same as: l 03:00: BD [place] 00 Posiflush) sennosides, 2017-07 No Notes: [place] en[place] LONG TERM 2-24 (Same as: l 03:00: Senokot) [place] NIFEdipine 2017-07 No Notes: Memor ia 30 [...] sodium, 2-23 porcine l porcine 22:00: heparin [place] 2500 UNT/ML 00 Injectable Solution Cardene 40 [...] tab, PO, l tablet 20:03: Daily, 0 [place] 00 Refill(s) Clonidine 2017-07 No Notes: Memori a Hydrochlori 2-23 (Same As: l de 0.1 MG 19:13: Catapres) Her holloway Oral Tablet 00 Saline 2017-07 No Notes: Memoria Flush 0.9% 2-23 (Same as: l 18:07: BD [place] 00 Posiflush) Nystatin 2017-07 No Notes: Memoria [...] PO, l oral tablet 23:09: Bedtime, # [place] 00 30 tab, 0 Refill(s) heparin No [...] Albuterol 01-08 RT l 0.09 23:00: DOCUMENTAT [place] MG/ACTUAT 00 ION (Same Metered as: Dose [...] 01-08 (Same as: l Flush 21:47: BD [place] Posiflush) Saline No 10 ml, Memoria Flush [...] [address] [facility] HCl HCl [facility]vel [facility] Ramipril Ramipril Yes Patrick [address] [facility] Jovel [facility] Clinics Carvedilol Carvedilol Yes Patrick as C [facility] Jovel directed [facility] ent Clinics Trazodone Trazodone Yes Patrick [address] HCl HCl Jovel at bedtime [facility] - as needed [facility] l [facility] ent Clinics Isosorbide Isosorbide Yes Patrick [address] Mononitrate Mononitrate Jovel in the [facility] - morning [facility] l [facility] ent Clinics [facility] 2019- No Patrick [address] 10[facility] Jovel with meals [facility] - 00:00 Memoria :00 l [facility] ent Clinics Vital Signs Vital Name Observation Time Observation Value Comments Source Systolic (mm Hg) 2018-06-30 19:00:00 [place] rial [place] Diastolic (mm Hg) 2018-06-30 19:00:00 Mem orial [place] Systolic (mm Hg) 2018-06-30 18:50:00 [place] rial [place] Diastolic (mm Hg) 2018-06-30 18:50:00 Mem orial [place] Systolic (mm Hg) 2018-06-30 18:30:00 [place] rial [place] Diastolic (mm Hg) 2018-06-30 18:30:00 Mem orial [place] Temperature Oral (F) 2018-06-30 14:55:00 96.5 F [facility] [place] Respitory Rate 2018-06-30 14:06:00 Memori al [place] Heart Rate 2018-06-30 14:06:00 [facility] [place] Temperature Oral (F) 2018-06-30 14:06:00 96.3 F [facility] [place] Respitory Rate 2018-06-30 10:31:00 Memori al [place] Heart Rate 2018-06-30 10:31:00 [facility] [place] Temperature Oral (F) 2018-06-30 10:31:00 96.5 F [facility] [place] Heart Rate 2018-06-30 06:17:00 [facility] [place] Respitory Rate 2018-06-30 06:17:00 Memori al [place] BMI Calculated 2018-06-24 18:20:00 Memori al [place] Weight 2018-06-24 18:20:00 [facility] [place] Height 2018-06-24 18:20:00 152.4 cm [facility] [place] Systolic (mm Hg) 2017-01-10 21:00:00 [place] rial [place]ing Diastolic (mm Hg) 2017-01-10 21:00:00 Mem orial [place] Respitory Rate 2017-01-10 21:00:00 Memori al [place] Systolic (mm Hg) 2017-01-10 19:00:00 [place] rial Marsing Diastolic (mm Hg) 2017-01-10 19:00:00 Mem orial [place] Respitory Rate 2017-01-10 19:00:00 Memori al [place] Systolic (mm Hg) 2017-01-10 18:11:00 [place] rial C[place] Diastolic (mm Hg) 2017-01-10 18:11:00 Mem orial [place] Respitory Rate 2017-01-10 18:11:00 Memori al [place] BMI Calculated 2017-01-08 21:38:00 Memori al [place] Weight 2017-01-08 21:38:00 [facility] [place] Height 2017-01-08 21:38:00 152.4 cm [facility] [place] Procedures Procedure Date / Time Performed Performing Clinician Alli velázquez [id number] 2019-01-21 00:00:00 ENCPL [id number] 2019-01-21 00:00:00 ENCPL [id number] 2019-01-21 00:00:00 ENCPL [id number] 2019-01-21 00:00:00 ENCPL [id number] 2019-01-21 00:00:00 ENCPL [id number] 2019-01-21 00:00:00 ENCPL [id number] 2019-01-21 00:00:00 ENCPL [id number] 2019-01-21 00:00:00 ENCPL [id number] 2019-01-21 00:00:00 ENCPL [id number] 2019-01-21 00:00:00 [facility] Encounters Start End Encounter Admission Attending Care Care Encounter Source Date/Time Date/Time Type Type Clinicians Facility Department ID 2018-10-08 2018-10-08 [facility] [id number] 13:30:00 13:30:00 t [facility] l Medicine Outpati ent Clinics 2018-09-05 2018-09-05 [facility] [id number] 11:34:00 11:34:00 t [place] [employer] - NXE [facility] l Medicine Outpati ent Clinics 2018-08-24 2018-08-24 [facility] [id number] 08:15:00 08:15:00 t [place] [employer] - NXE [facility] l Medicine Outpati ent Clinics 2018-07-18 2018-07-18 [facility] [id number] 10:54:00 10:54:00 t Circular s - NXE [facility] l Medicine Outpati ent Clinics 2018-07-11 2018-07-11 [facility] [id number] 11:30:00 11:30:00 t Circular s [employer] [facility] l Medicine Outpati ent Clinics 2018-06-24 2018-06-30 Outpatient Kamille [facility] [id number] 11:54:00 15:55:00 Adrian Ely 2017-01-08 2017-01-10 Outpatient [facility] [id number] 21:31:00 18:15:00 Tom Garcia Results Test Description Test Time Test Comments Results Result Comments Source CHEM PANEL 2018-06-30 [facility] 2018-06-30 [...] A/G Ratio) 0.8 1 0.7-1.6 [facility] [id number] 11:16:003.2[facility]ann[facility] PANEL 2018-06-30 11:16:007.0[facility] [id number] 11:16:00 Test Item Value Reference Range Interpretation Comments B/C Ratio (test code = B/C Ratio) 8 1 6-25 [facility] HermannCHEM [id number] 11:16:000.5[facility]annCHEM PANEL 2018-06-30 11:16:47265Emkcqbhr HermannCHEM RBNVV8735-74-51 11:16:0088[facility]annCHEM CFJXQ3695-71-57 11:16:0048[facility]CHE[facility] JZRBM4948-14-58 11:16:008.0[facility]annCHE[facility] QWIRP3355-97-90 11:16:0013.5[facility]annCHE[facility] RZCZZ8509-12-41 11:16:22132Ikkktjvy HermannCHEM DBICI1459-38-98 11:16:0024 [facility] HEXQX9181-80-31 11:16:005.89[facility]annCHEM PANEL 2018-06-30 11:16:98673Churftdw HermannCHEM VNXCQ7982-72-14 11:16:004.5[facility] FldterrBCBSLSIIMJ0606-55-75 11:16:00 Test Item Value Reference Range Interpretation Comments MCH (test code = MCH) 27.7 pg 27.0-31.0 Memorial YedsvawIXKVTNFZJL4219-40-80 11:16:0028.3[facility] HermannHEMATOLOGY 2018-06-30 11:16:0085.6[facility] ZveazcwQZYFUDQJTY5712-59-57 11:16:0032.3[facility] YunkckuLPNBDNWHLY3550-14-93 11:16:0016.0[facility] UmzozohXLIILLUCYC9745-06-36 11:16:42571Qaftjqgp AeqrtdvZXEMTKXTLR6188-38-56 11:16:008.5[facility] Cullen LKOJGALFOZ4062-68-04 11:16:004.4[facility] QngwuwkWLABAVJDCS2550-85-00 11:16:00 3.31[facility] FolfgbhUCVTPEIGLX8954-61-95 11:16:009.2[facility] HermannHEMATOLOGY 2018-06-30 11:16:000.9[facility] MpoygrgPUBAEZTAGS7143-06-42 11:16:001+ *ABN*(06/30/18 5:16 AM)[facility] DrczzyrPTSICOQRRO4360-24-22 11:16:000.1[facility] TjgnoocSEDZHKEPGA9112-57-52 11:16:0020.2[facility] ZxblwoiIKMMVWQXCU7504-06-83 11:16:000.9[facility] RrffzsjSDJIYDASGC5843-28-76 11:16:0032.1[facility] [place] VCRUWZUCFU3094-10-86 11:16:001.2[facility] RvjowjzQNRTWRMUWH2054-35-34 11:16:002.0 Memorial OczkmdmZSHUFXZKEO9022-05-14 11:16:001.4[facility] HermannHEMATOLOGY 2018-06-30 11:16:0045.6[facility] KdywdlmZQDGORMIOP0778-20-95 11:16:00Normal (06/30/18 5:16 AM)[facility] HermannANEMIA QJGZI3217-44-30 14:13:0061[facility] HermannANEMIA QYIDV1170-39-51 14:13:98156Dxtczupn HermannANEMIA MMZZO6308-64-80 14:13:65045Hgqzltxz HermannANEMIA OLEJY4337-80-83 14:13:0027[facility] ANEMIA XILFK5771-30-83 14:13:07477Zwlivowx HermannCHEM PPIBC0008-88-73 11:24:00 3.6[facility] HermannCHEM ITNKC0937-23-42 11:24:002.2[facility] HermannCHEM PANEL 2018-06-29 11:24:000.5[facility]annCHEM XNGLA7367-14-85 11:24:47991Smktdwpd HermannCHEM NOLHS8030-04-73 11:24:0013[facility]annCHEM DMLGG1115-93-27 11:24:0014[facility]annCHEM QUFCS5128-66-37 11:24:0013[facility]annCHEM UZNZN1743-25-62 11:24:003.0[facility]annCHEM GMGIQ7938-02-70 11:24:007.1 [facility] ESTQV4528-16-49 11:24:99111Nersplbd HermannCHEM PANEL 2018-06-29 11:24:007.6[facility] HermannCHEM FOZFD4596-61-65 11:24:0025[facility]annCHEM FXMXB5581-77-30 11:24:004.2[facility]annCHEM ZWUBA2666-30-54 11:24:98098Fvqowoid HermannCHEM UCWAB0470-25-41 11:24:0095[facility] HermannCHEM MAVPY4857-65-31 11:24:0030[facility]annCHEM PVWAJ6470-80-62 11:24:004.15 [facility] HermannCHEM DQQKT3857-84-34 11:24:0013.2[facility] HermannCHEM PANEL 2018-06-29 11:24:00 Test Item Value Reference Range Interpretation Comments A/G Ratio (test code = A/G Ratio) 0.7 1 0.7-1.6 [facility] HermannCHEM [id number] 11:24:004.1[facility] HermannCHEM PANEL 2018-06-29 11:24:00 Test Item Value Reference Range Interpretation Comments B/C Ratio (test code = B/C Ratio) 7 1 6-25 Memorial RchczcfRJYNJSFPKD8960-29-56 11:24:008.2[facility] HermannHEMATOLOGY 2018-06-29 11:24:0016.5[facility] ZtpioixMGKCLBKGGV5791-61-55 11:24:55769Pbzhrign IteajphGPYLNYFSAG9291-12-48 11:24:0085.3[facility] AuobingPIQYCRPVWL6489-50-81 11:24:00 Test Item Value Reference Range Interpretation Comments MCH (test code = MCH) 27.9 pg 27.0-31.0 Memorial BsfdwagHZYBDHLZHT2806-52-17 11:24:0032.7[facility] HermannHEMATOLOGY 2018-06-29 11:24:003.40[facility] HpzjkkuYIASQZIZIN8972-39-01 11:24:009.5[facility] FvaawzsKGJQPGEKRM5844-75-10 11:24:005.3[facility] HqmpjddRWXWEGOQFZ0163-63-93 11:24:0029.0[facility] RoblkyiSHYHSNRGOI5056-54-69 11:24:001.6[facility] [place] IIXYZXGHGN8092-77-58 11:24:0020.2[facility] HzukmzhJTDQUMAKRS2653-85-64 11:24:00 50.7[facility] CxjwkhtEBWLMGUVBE2041-42-28 11:24:0027.3[facility] HermannHEMATOLOGY 2018-06-29 11:24:001.1[facility] RvawtubERTXKOZVUC8643-41-28 11:24:000.1[facility] TvjlmnuDDTYAOOIDI7719-24-84 11:24:000.7[facility] DuihukaFSBQNOMFUI1174-41-95 11:24:002.7[facility] XuidqgpZHVAOKFTTD7622-18-45 11:24:001.1[facility] OSLGBOOSFW1164-97-89 11:24:001.5[facility] HermannCHEM TMEYL3752-73-13 11:13:002.2 [facility]annCHEM RDHIR4994-73-67 11:13:004.1[facility] HermannCHEM PANEL 2018-06-28 11:13:006[facility] HermannCHEM YHCAR7241-45-44 11:13:0025[facility] HermannCHEM WJCUC9668-09-70 11:13:0094[facility] HermannCHEM VLWBS6067-91-75 11:13:0049[facility] HermannCHEM TUPEB2323-39-86 11:13:004.3[facility] HermannCHEM GHNWF2283-04-36 11:13:007.38[facility] HermannCHEM DBTHS3602-38-13 11:13:99784 [facility]annCHEM TLWIC9697-99-03 11:13:31414Rncrzlay HermannCHEM PANEL 2018-06-28 11:13:003.1[facility] HermannCHEM FWHGE1233-70-73 11:13:007.6[facility] HermannCHEM MRJTF2493-98-38 11:13:006.9[facility] HermannCHEM ZWENH3045-92-58 11:13:0013[facility] HermannCHEM LPXPK6826-76-11 11:13:13506Cxhjwqxg HermannCHEM IHNKW6567-20-38 11:13:0011[facility] HermannCHEM WBDBS4746-09-52 11:13:000.5 [facility] HermannCHEM ADBBB2698-34-95 11:13:003.8[facility] HermannCHEM PANEL 2018-06-28 11:13:00 Test Item Value Reference Range Interpretation Comments B/C Ratio (test code = B/C Ratio) 7 1 6-25 [facility] HermannCHEM [id number] 11:13:00 Test Item Value Reference Range Interpretation Comments A/G Ratio (test code = A/G Ratio) 0.8 1 0.7-1.6 [facility] HermannCHEM [id number] 11:13:0012.3[facility] HermannHEMATOLOGY 2018-06-28 11:13:008.5[facility] OxhvpgvLLCGZREXGE4762-73-94 11:13:69693Vwvuivei QhwstbdJPSHLRBGVF7719-76-65 11:13:0016.0[facility] VbunghxCUPNRYQGRB7810-91-57 11:13:0031.5[facility] CklyrwcEAAHGOBTCM7210-98-14 11:13:00 Test Item Value Reference Range Interpretation Comments MCH (test code = MCH) 26.9 pg 27.0-31.0 [facility] KaktaltQYOMJBCFZF4054-45-69 11:13:0085.6[facility] HermannHEMATOLOGY 2018-06-28 11:13:0029.4[facility] SospprjDAWDTKHBFZ9922-60-57 11:13:003.43[facility] BxitzhqQGQAFUFFEP9414-78-64 11:13:005.1[facility] LmkhxkgAIZDWRPXBW7045-15-22 11:13:009.2[facility] OpeyviaFNYNZUBJFY0779-69-09 11:13:000.1[facility] YUGBVFDGIV9237-20-60 11:13:000.1[facility] JrbetuwIWSSZHFLEQ1310-18-21 11:13:000.9 [facility] JygravdGMXLLDMSSX2149-93-94 11:13:0017.7[facility] HermannHEMATOLOGY 2018-06-28 11:13:0052.2[facility] AuaaaktJUQRTJAAXP8083-67-82 11:13:0027.8[facility] CvkzsahUAIHSPXPNT3900-68-97 11:13:001.4[facility] XgokgngTYNQFWOLSW2205-45-26 11:13:002.7[facility] TsdaiblAYABEYRBAA0712-49-27 11:13:001.0[facility] SFNAXYSGLC5720-04-52 11:13:001.3[facility] HermannAMINO LWNW2840-35-44 19:12:98524 [facility] HermannAMINO TMEB4484-65-58 19:12:0040.6[facility] HermannANEMIA STUDY 2018-06-27 19:12:45714Dldaxyrs HermannCHEM FBZOL4564-63-56 19:12:0029.0[facility] HxgrryxICRXBRREPY3869-24-14 19:12:00Non-Reactive (06/27/18 1:12 PM)[facility]annMOLECULAR OFHRAJDXTM6877-25-14 20:58:00<1.2[facility] HermannMOLECULAR EWOAGZBUTY2925-04-37 20:58:00Not Detected (06/26/18 2:58 PM)[facility]INE AND KQQBJ3784-85-20 14:03:002[facility]annURINE AND WRMGH2709-59-58 14:03:00Negative (06/26/18 8:03 AM)[facility] NDDUY5417-03-80 14:03:00Negative (06/26/18 8:03 AM)[facility] FZYHH9278-20-04 14:03:00<1[facility] XKTKD0674-07-84 14:03:00Negative (06/26/18 8:03 AM)[facility] ARKTF4489-37-90 14:03:00 Test Item Value Reference Range Interpretation Comments UA pH (test code = UA pH) 7.5 1 5.0-8.0 [facility] DCGEJ7516-77-34 14:03:00Negative *NA*(06/26/18 8:03 AM)[facility] TPAYK5531-27-82 14:03:00Light Yellow *NA*(06/26/18 8:03 AM)[facility] XEAHW2565-91-30 14:03:00 Test Item Value Reference Range Interpretation Comments UA Spec Grav (test code = UA Spec 1.004 1 Grav) [facility] [id number] 14:03:00Clear (06/26/18 8:03 AM) [facility] GckirhnKFTAHRCPBY9396-42-33 19:39:0066.7[facility] HermannIMMUNOLOGY 2018-06-24 19:39:00Positive *ABN*(06/24/18 1:39 PM)[facility] HermannIMMUNOLOGY 2018-06-24 19:39:00Negative *NA*(06/24/18 1:39 PM)[facility] HermannIMMUNOLOGY 2018-06-24 19:39:00Negative *NA*(06/24/18 1:39 PM)[facility] HermannIMMUNOLOGY 2018-06-24 19:39:00Negative *NA*(06/24/18 1:39 PM)[facility] HermannBACTERIAL - UNYIOCVP3633-10-19 19:05:00Negative (06/24/18 1:05 PM)[facility]annCARDIAC FRMCWJK2841-19-25 19:05:000.05[facility]annCARDIAC QDGIGXY1602-58-05 19:05:00 1953[facility]annCARDIAC BGTMKTA7666-46-17 19:05:9966608Oylfhivd HermannCHEM RUNAG5360-48-18 19:05:000.1[facility] HermannCHEM HMVOH9930-22-40 19:05:000.8 [facility] ZthuyjmZPDSLTAHNW7519-94-17 19:05:00 Test Item Value Reference Range Interpretation Comments PTT (test code = PTT) 36.4 s 22.9-35.8 [facility] DticeztDXLZQKICEL1107-38-07 19:05:00 Test Item Value Reference Range Interpretation Comments PT (test code = PT) 15.4 s 12.0-14.7 [facility] KazlgssSDTFREQNVZ6605-60-30 19:05:00 Test Item Value Reference Range Interpretation Comments INR (test code = INR) 1.24 1 0.85-1.17 [facility] LrnbskvRVDGZRPYMU5222-60-42 19:05:000.1[facility] HermannIMMUNOLOGY 2018-06-24 19:05:00Negative *NA*(06/24/18 1:05 PM)[facility]annMOLECULAR MZQPYBSRZE9034-05-91 19:05:00Negative (06/24/18 1:05 PM)[facility] MOLECULAR EUEUGPRSGW1981-59-32 19: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 (06/24/18 1:05 PM) [facility]annMOLECULAR IVMTBYMJLJ0990-70-04 19:05:00Negative (06/24/18 1:05 PM)[facility]annMOLECULAR BKOOUPIXSX7325-39-98 19:05:00Negative (06/24/18 1:05 PM)[facility] HermannPARATHYROID NDNWRHU7325-64-94 19:05:000.92[facility] HermannPARATHYROID CVDWOXZ4204-38-66 19:05:000.86[facility] HermannCHEM PANEL 2017-01-10 07:46:0014[facility] HermannCHEM SEDQB0228-68-56 07:46:003.84[facility] HermannCHEM SUBPQ9285-99-29 07:46:008.3[facility] HermannCHEM NKVDZ3822-37-12 07:46:0010.1[facility] HermannCHEM LGMTB0047-40-88 07:46:0032[facility] HermannCHEM VLQIP4082-78-11 07:46:83984Tdusszin HermannCHEM BVETK9192-45-42 07:46:004.1 [facility]annCHEM ZEOCP8920-75-30 07:46:12735Msfsjyxo HermannCHEM PANEL 2017-01-10 07:46:009[facility] HermannCHEM KRYDA9809-36-75 07:46:0091[facility] HermannCHEM QMEZY7941-11-79 07:46:002.6[facility] GpymibuKWBTJUJIEN1131-77-01 23:45:00Negative *NA*(01/09/17 6:45 PM)[facility] HermannDRUG CMBIJF8955-04-88 23:00:00See Note *NA*(01/08/17 6:00 PM)[facility]annDRUG YKVVIB3581-06-62 23:00:00Negative *NA*(01/08/17 6:00 PM)[facility]annDRUG HQJPCO8188-21-49 23:00:00Negative *NA*(01/08/17 6:00 PM)[facility] HermannDRUG QXNUYC0219-44-83 23:00:00Negative *NA*(01/08/17 6:00 PM)[facility] HermannDRUG RUMCNF5357-41-18 23:00:00Negative *NA*(01/08/17 6:00 PM)[facility]annDRUG HXHLOY4724-90-48 23:00:00Negative *NA*(01/08/17 6:00 PM)[facility]annDRUG SWSPFA0162-48-07 23:00:00Negative *NA*(01/08/17 6:00 PM)[facility] HermannDRUG RCZYJZ8730-82-70 23:00:00Negative *NA*(01/08/17 6:00 PM)[facility] AND MCSSN1137-47-98 23:00:00>=9.0 *ABN*(01/08/17 6:00 PM)[facility] UZBRL7112-61-52 23:00:00<1[facility] AND ZRXBA4195-61-79 23:00:001[facility]INE AND PONHW9048-09-48 23:00:001.004[facility]UR[facility] AND CYORL1141-80-17 23:00:00Negative (01/08/17 6:00 PM)[facility] PFKPM9859-18-35 23:00:00Clear (01/08/17 6:00 PM)[facility] AND HYZYV9323-20-36 23:00:00 Negative *NA*(01/08/17 6:00 PM)[facility] LCGFI7766-51-42 23:00:00 Negative (01/08/17 6:00 PM)[facility] CMVJJ2586-44-52 23:00:00 Negative (01/08/17 6:00 PM)[facility] AlzzzomPFXVMYUTXK2365-60-58 22:21:00 Test Item Value Reference Range Interpretation Comments PTT (test code = PTT) 36.2 s 22.9-35.8 [facility] TewnswdNPXQMNKZYO7986-37-00 22:21:001.05[facility] HermannHEMATOLOGY 2017-01-08 22:21:00 Test Item Value Reference Range Interpretation Comments PT (test code = PT) 13.9 s 12.0-14.7 [facility] QigqhozFCZBJG4263-20-63 22:21:0022[facility] HertzsyEHWQKL3064-19-76 22:21:0050[facility] YqfvdheKXEABM6454-54-79 22:21:53505Fmikpvxj HermannLIPIDS 2017-01-08 22:21:49256Pkdomeva LpgvvhhCYFGZR9782-86-11 22:21:0073[facility] OiacozaKGQLQX2714-19-17 22:21:001.99[facility] HermannSPECIAL AHWQPDADZ3378-39-33 22:21:004.6[facility] HermannCHEM JXSZS5518-82-47 22:20:003[facility] HermannCHEM IJVTF1335-37-28 22:20:0014.4[facility] HermannCHEM AGDHE4625-87-13 22:20:005.5 [facility] HermannCHEM YTWBD0908-63-16 22:20:000.6[facility] HermannCHEM PANEL 2017-01-08 22:20:008[facility] HermannCHEM MTPDS9078-09-81 22:20:0085[facility] HermannCHEM VBIGI3899-40-65 22:20:0026[facility] HermannCHEM BACZK8406-53-81 22:20:0014[facility] HermannCHEM CPDWD0655-98-47 22:20:006.23[facility] HermannCHEM RPLYJ2622-00-33 22:20:003.3[facility] HermannCHEM MRFAM0060-46-76 22:20:0016 [facility] HermannCHEM HGESO9950-60-45 22:20:0024[facility] HermannCHEM PANEL 2017-01-08 22:20:000.5[facility] HermannCHEM DHCKZ6966-34-48 22:20:008.8[facility] HermannCHEM GXRLO0543-20-00 22:20:90406Fuzzvejo HermannCHEM QGXOP5834-07-92 22:20:51210Fhrfomxq HermannCHEM BMUUJ8716-45-53 22:20:005.4[facility] HermannCHEM HMAZK8011-43-20 22:20:009.1[facility] HermannCHEM IFERC8135-57-82 22:20:96607 [facility] HermannCHEM CVKKR3252-98-84 22:20:002.4[facility] HermannHEMATOLOGY 2017-01-08 22:20:0010.5[facility] QguhofbMUXDRRLSLA2231-77-56 22:20:0031.5[facility] WgllkeeLZREMAJKMN2248-74-64 22:20:009.0[facility] EsllthpXPVUSQPEST4928-35-44 22:20:003.70[facility] JileizdRZXFMEFKOI7697-51-98 22:20:0085.3[facility] TSSMESDDYS8638-74-39 22:20:00 Test Item Value Reference Range Interpretation Comments MCH (test code = MCH) 28.5 pg 27.0-31.0 [facility] ColgzrtZXIASTGDVH4324-15-45 22:20:0033.4[facility] HermannHEMATOLOGY 2017-01-08 22:20:0012.9[facility] QincusySKWNBHITNU5278-42-28 22:20:91012Rzyjqkah MuqeekbJDGFAWTDTF3673-75-86 22:20:009.0[facility] UyfhhilCOTVZHDEFD1575-62-32 22:20:0012.8[facility] BgpofetZSSTWNKHTW2049-29-43 22:20:0043.7[facility] KMRLVIRECV6191-13-34 22:20:0040.4[facility] VaaafeuVLOFMUCSKS4522-35-11 22:20:00 4.0[facility] OhngtbxWMHQFKRXTO9296-43-66 22:20:001.9[facility] HermannHEMATOLOGY 2017-01-08 22:20:001.2[facility] ZwubjdmNNPQDFFIRH2038-21-80 22:20:003.7[facility] OiivqhnBHIDKKFURP1104-83-85 22:20:001.2[facility] CxfvfasEEUHMXCYLI9862-68-17 22:20:000.2[facility] JaeblwkUPBWCAANZA7457-76-74 22:20:000.1[facility]
--- NOTE | 2020-03-25 01:44 | ER ---
Nurse's Notes [facility] Name: Michelle Ochoa Age: 59 yrs Sex: Female : 1960 Arrival Date: 03/25/2020 Time: 01:04 Bed 13 Private MD: Christ Johnson Diagnosis: Dyspnea-volume overload;Systolic (congestive) heart failure;End stage renal disease-on hd;Elevated white blood cell count;Essential (primary) hypertension;Anemia, unspecified Presentation: 03/25 01:05 Chief complaint: EMS states: pt missed dialysis today, was recently hospitalized for sg fluid overload, reports was dialyzed in the hospital for shortness of breath and fluid overload, reports feeling short of breath at this time. Coronavirus screen: Client denies travel out of the [place] in the last 14 days. At this time, the client does not indicate any symptoms associated with coronavirus-19. Ebola Screen: Patient negative for fever greater than or equal to 101.5 degrees Fahrenheit, and additional compatible Ebola Virus Disease symptoms Patient denies exposure to infectious person. Patient denies travel to an Ebola-affected area in the 21 days before illness onset. No symptoms or risks identified at this time. Initial Sepsis Screen: Does the patient meet any 2 criteria? No. Patient's initial sepsis screen is negative. Does the patient have a suspected source of infection? No. Patient's initial sepsis screen is negative. Risk Assessment: Do you want to hurt yourself or someone else? Patient reports no desire to harm self or others. Onset of symptoms was March 25, 2020. Care prior to arrival: None. Transition of care: patient was not received from another setting of care. 01:05 Acuity: ZAID 3 sg 01:05 Method Of Arrival: EMS: [facility] sg Triage Assessment: 01:30 Respiratory: Onset: The symptoms/episode began/occurred yesterday, the patient has mild wh shortness of breath. Historical: - Allergies: 01:09 No Known Allergies; sg - PMHx: 01:09 Anemia; Bronchitis; CHF; COPD; CVA; Dementia; Dialysis- T/Th/Sat; ENDOCARDITIS; ESRD; sg Hypertension; kidney failure; PATRICK; osteoarthritis; Renal Disease; - PSHx: 01:09 Triple bypass; sg - Immunization history:: Adult Immunizations up to date. - Social history:: Smoking status: Patient denies any tobacco usage or history of. Screenin:30 Abuse screen: Denies threats or abuse. Denies injuries from another. Nutritional screening: No deficits noted. Tuberculosis screening: No symptoms or risk factors identified. Fall Risk None identified. Assessment: 01:30 General: Appears uncomfortable, Behavior is calm, cooperative, appropriate for age. Pain: Complains of pain in abdomen Pain does not radiate. Neuro: Level of Consciousness is awake, alert, obeys commands, Oriented to person, place, time, situation, Appropriate for age. Cardiovascular: Heart tones S1 S2 Rhythm is regular Dialysis shunt: in the left arm. Respiratory: Reports shortness of breath Airway is patent Respiratory effort is labored, Respiratory pattern is tachypnea Breath sounds are diminished Breath sounds with wheezes. GI: Abdomen is non-distended. : No signs and/or symptoms were reported regarding the genitourinary system. EENT: No signs and/or symptoms were reported regarding the EENT system. Derm: Skin is intact. Musculoskeletal: Circulation, motion, and sensation intact. 03:00 Reassessment: Patient appears in no apparent distress at this time. No changes from previously documented assessment. Patient and/or family updated on plan of care and expected duration. Pain level reassessed. Patient is alert, oriented x 3, equal unlabored respirations, skin warm/dry/pink. 03:48 Reassessment: Telepharmacy reports they would like to clarify that the patient was sg given lovenox 40 mg SubQ, clarified and verified. 07:00 Reassessment: RECD REPORT FROM VIRA HAYS. 59YO BF P/W SOB 2/2 MISSED HD. PT ON ER HOLD, bp SEE [facility] FOR FURTHER DOCUMENTATION. Vital Signs: 01:05 BP 135 / 88; Pulse 82 MON; Resp 26 S; Temp 97.2; Pulse Ox 98% on R/A; Pain 0/10; sg 02:00 BP 188 / 81; Pulse 71; Resp 22; Pulse Ox 99% on BiPAP; 03:15 BP 190 / 82; Pulse 72; Resp 22; Pulse Ox 98% on BiPAP; ED Course: 01:04 Patient arrived in ED. sg 01:04 Christ Johnson MD is Private Physician. sg 01:05 Patient has correct armband on for positive identification. Bed in low position. Call sg light in reach. Side rails up X2. client advisor on. Pulse ox on. NIBP on. Warm blanket given. Head of bed elevated. 01:08 Fortino Weaver MD is Attending Physician. [facility] 01:09 Triage completed. sg 01:10 Arm band placed on. sg 01:41 XRAY Chest (1 view) In Process Unspecified. EDMS 01:43 Jp Oshea is Hospitalizing Provider. [facility] 02:08 Vira Mae is Primary Nurse. 02:20 Initial lab(s) drawn, by me, sent to lab. Missed attempt(s): 22 gauge in right hand. sg Bleeding controlled, band aid applied, catheter tip intact. Missed attempt(s): 20 gauge Midline Pro 8 CM. 02:45 Inserted saline lock: 20 gauge in right EJ, using aseptic technique. By MD Weaver. 03:17 No provider procedures requiring assistance completed. Patient admitted, IV remains in place. Administered Medications: 02:30 Drug: SOLU-Medrol 125 mg Route: IVP; Site: right jugular; 03:20 Follow up: Response: No adverse reaction 02:32 Drug: Nitro-Bid Ointment 2 % 1 inches Route: Transdermal; Site: anterior chest wall; 03:19 Follow up: Response: No adverse reaction 02:35 Drug: Xopenex 3.75 mg Route: Inhalation; 03:20 Follow up: Response: No adverse reaction 02:35 Drug: AtroVENT Aerosol 0.5 mg Route: Inhalation; 03:20 Follow up: Response: No adverse reaction 02:40 Drug: Lasix 100 mg Route: IVP; Site: right jugular; 03:19 Follow up: Response: No adverse reaction 02:42 Drug: Lovenox 40 mg Route: Sub-Q; Site: left upper abdomen; 03:19 Follow up: Response: No adverse reaction 02:44 Drug: morphine 2 mg {Note: RASS 0.} Route: IVP; Site: right antecubital; 03:19 Follow up: Response: No adverse reaction; Pain is decreased; RASS: Alert and Calm (0) 02:46 Drug: Zofran (Ondansetron) 4 mg Route: IVP; Site: right jugular; 03:19 Follow up: Response: No adverse reaction; Nausea is decreased 02:48 Drug: Rocephin 1 grams Route: IV; Rate: per protocol; Site: right jugular; 03:18 Follow up: Response: No adverse reaction; IV Status: Completed infusion Outcome: 01:44 Decision to Hospitalize by Provider. [facility] 03:17 Admitted to ER Hold. Please see [facility] for further documentation. 03:17 Condition: stable 03:17 Instructed on the need for admit. 08:58 Patient left the ED. bp Signatures: Dispatcher [employer] EDVickey Dominguez, RN RN Fortino Sampson MD MD cha Habalo, Winsy Jamie Darden RN RN bp
--- NOTE | 2020-03-25 01:45 | EDPHYS ---
Physician Documentation [facility] Name: Michelle Ochoa Age: 59 yrs Sex: Female : 1960 Arrival Date: 03/25/2020 Time: 01:04 Bed 13 Private MD: Christ Johnson ED Physician Fortino Weaver HPI: 03/25 01:13 This 59 yrs old Black Female presents to ER via EMS with complaints of Shortness Of kirsten Breath. 01:13 The patient has shortness of breath at rest, with light activity. Onset: The kirsten symptoms/episode began/occurred 3 day(s) ago. Duration: The symptoms are continuous, and are steadily getting worse. The patient's shortness of breath is aggravated by exertion, light activity, supine position, is alleviated by elevating head, application of supplemental oxygen. Associated signs and symptoms: Pertinent positives: non-productive cough. Historical: - Allergies: 01:09 No Known Allergies; sg - PMHx: 01:09 Anemia; Bronchitis; CHF; COPD; CVA; Dementia; Dialysis- T//Mon; ENDOCARDITIS; ESRD; sg Hypertension; kidney failure; PATRICK; osteoarthritis; Renal Disease; - PSHx: 01:09 Triple bypass; sg - Immunization history:: Adult Immunizations up to date. - Social history:: Smoking status: Patient denies any tobacco usage or history of. ROS: 01:38 Constitutional: Negative for fever, chills, and weight loss, Eyes: Negative for injury, kirsten pain, redness, and discharge, ENT: Negative for injury, pain, and discharge, Neck: Negative for injury, pain, and swelling, Cardiovascular: Negative for chest pain, palpitations, and edema, Abdomen/GI: Negative for abdominal pain, nausea, vomiting, diarrhea, and constipation, Back: Negative for injury and pain, : Negative for injury, bleeding, discharge, and swelling, MS/Extremity: Negative for injury and deformity, Skin: Negative for injury, rash, and discoloration, Neuro: Negative for headache, weakness, numbness, tingling, and seizure, Psych: Negative for depression, anxiety, suicide ideation, homicidal ideation, and hallucinations, Allergy/Immunology: Negative for hives, rash, and allergies, Endocrine: Negative for neck swelling, polydipsia, polyuria, polyphagia, and marked weight changes, Hematologic/Lymphatic: Negative for swollen nodes, abnormal bleeding, and unusual bruising. 01:38 Respiratory: Positive for cough, dyspnea on exertion, orthopnea, shortness of breath. Exam: 01:38 Constitutional: This is a well developed, well nourished patient who is awake, alert, kirsten and in no acute distress. Head/Face: Normocephalic, atraumatic. Eyes: Pupils equal round and reactive to light, extra-ocular motions intact. Lids and lashes normal. Conjunctiva and sclera are non-icteric and not injected. Cornea within normal limits. Periorbital areas with no swelling, redness, or edema. ENT: Nares patent. No nasal discharge, no septal abnormalities noted. Tympanic membranes are normal and external auditory canals are clear. Oropharynx with no redness, swelling, or masses, exudates, or evidence of obstruction, uvula midline. Mucous membranes moist. Neck: Trachea midline, no thyromegaly or masses palpated, and no cervical lymphadenopathy. Supple, full range of motion without nuchal rigidity, or vertebral point tenderness. No Meningismus. Chest/axilla: Normal chest wall appearance and motion. Nontender with no deformity. No lesions are appreciated. Abdomen/GI: Soft, non-tender, with normal bowel sounds. No distension or tympany. No guarding or rebound. No evidence of tenderness throughout. Back: No spinal tenderness. No costovertebral tenderness. Full range of motion. Female : Normal external genitalia. Skin: Warm, dry with normal turgor. Normal color with no rashes, no lesions, and no evidence of cellulitis. MS/ Extremity: Pulses equal, no cyanosis. Neurovascular intact. Full, normal range of motion. Neuro: Awake and alert, GCS 15, oriented to person, place, time, and situation. Cranial nerves II-XII grossly intact. Motor strength 5/5 in all extremities. Sensory grossly intact. Cerebellar exam normal. Normal gait. Psych: Awake, alert, with orientation to person, place and time. Behavior, mood, and affect are within normal limits. 01:38 Cardiovascular: Rate: normal, Rhythm: regular, Pulses: Pulses are 4+ in bilateral radial, brachial, femoral, popliteal, posterior tibial and and dorsalis pedis arteries.. Heart sounds: normal, Edema: is not appreciated, JVD: is noted bilaterally, to the angle of the jaw. 01:38 Respiratory: mild respiratory distress is noted, Respirations: labored breathing, that is mild, Breath sounds: rales, that are mild, decreased breath sounds, that are mild, Respiratory rate: 26 01:38 Musculoskeletal/extremity: DVT Exam: No signs of deep vein thrombosis. no pain, no swelling, no tenderness, negative Homans' sign noted on exam, no appreciated bluish discoloration, no erythema, no increased warmth. Vital Signs: 01:05 BP 135 / 88; Pulse 82 MON; Resp 26 S; Temp 97.2; Pulse Ox 98% on R/A; Pain 0/10; sg 02:00 BP 188 / 81; Pulse 71; Resp 22; Pulse Ox 99% on BiPAP; wh 03:15 BP 190 / 82; Pulse 72; Resp 22; Pulse Ox 98% on BiPAP; wh Procedures: 03:03 Peripheral line: by aseptic technique a peripheral line was placed in the right [facility] external jugular vein. MDM: 01:08 Patient medically screened. [facility] 01:41 Differential diagnosis: Anemia Anxiety Reaction asthma, Bronchitis CHF exacerbation, kirsten Chronic Obstructive Pulmonary Disease Myocardial Infarction pneumonia, Pneumothorax pulmonary edema, Pulmonary Embolism reactive airway disease, Unstable Angina. Antibiotic administration: rocephin. The patient's Wells Deep Vein Thrombosis Score was calculated as follows: Total Score: 0-2 Pts- Low Risk. The patient's pulmonary embolism risk score was calculated as follows: Total Score: 0-2 points. This patient was found to be at low risk for a pulmonary embolism by using the Well's assessment criteria. Immunization status: Influenza vaccine: Data reviewed: vital signs, nurses notes, lab test result(s), EKG, radiologic studies, CT scan, plain films. Data interpreted: patient advocate: rate is 76 beats/min, rhythm is regular, Pulse oximetry: on room air is 94 %. Test interpretation: by ED physician or midlevel provider: ECG, plain radiologic studies. Counseling: I had a detailed discussion with the patient and/or guardian regarding: the historical points, exam findings, and any diagnostic results supporting the discharge/admit diagnosis, the presence of at least one elevated blood pressure reading (>120/80) during this emergency department visit, lab results, radiology results, the need for further work-up and treatment in the hospital. 03/25 01:13 Order name: Basic Metabolic Panel; Complete Time: 03:20 [facility] 03/25 01:13 Order name: CBC with Diff; Complete Time: 03:20 [facility] 03/25 01:13 Order name: LFT's; Complete Time: 03:20 [facility] 03/25 01:13 Order name: Magnesium; Complete Time: 03:20 [facility] 03/25 01:13 Order name: NT PRO-BNP; Complete Time: 03:20 [facility] 03/25 01:13 Order name: PT-INR; Complete Time: 03:20 [facility] 03/25 01:13 Order name: Troponin (emerg Dept Use Only); Complete Time: 03:20 [facility] 03/25 02:39 Order name: Urinalysis [facility] 03/25 02:39 Order name: Basic Metabolic Panel [facility] 03/25 02:39 Order name: Basic Metabolic Panel [facility] 03/25 02:39 Order name: CBC with Automated Diff [facility] 03/25 02:39 Order name: CBC with Automated Diff [facility] 03/25 02:41 Order name: Urinalysis [facility] 03/25 07:17 Order name: Chem 7 [facility] 03/25 01:13 Order name: XRAY Chest (1 view) [facility] 03/25 01:13 Order name: EKG; Complete Time: 01:14 [facility] 03/25 01:13 Order name: Cardiac monitoring; Complete Time: 02:46 [facility] 03/25 01:13 Order name: BIPAP [facility] 03/25 02:35 Order name: CONS Physician Consult [facility] 03/25 02:39 Order name: Consistent Carb (ADA) [address] [facility] 03/25 08:20 Order name: Basic Metabolic Panel [facility] 03/25 01:13 Order name: EKG - Nurse/Tech; Complete Time: 02:46 [facility] 03/25 01:13 Order name: IV Saline Lock; Complete Time: 02:46 [facility] 03/25 01:13 Order name: Labs collected and sent; Complete Time: 02:46 [facility] 03/25 01:13 Order name: O2 Per Protocol; Complete Time: 02:46 [facility] 03/25 01:13 Order name: O2 Sat Monitoring; Complete Time: 02:46 [facility] Administered Medications: 02:30 Drug: SOLU-Medrol 125 mg Route: IVP; Site: right jugular; wh 03:20 Follow up: Response: No adverse reaction 02:32 Drug: Nitro-Bid Ointment 2 % 1 inches Route: Transdermal; Site: anterior chest wall; 03:19 Follow up: Response: No adverse reaction wh 02:35 Drug: Xopenex 3.75 mg Route: Inhalation; 03:20 Follow up: Response: No adverse reaction wh 02:35 Drug: AtroVENT Aerosol 0.5 mg Route: Inhalation; 03:20 Follow up: Response: No adverse reaction wh 02:40 Drug: Lasix 100 mg Route: IVP; Site: right jugular; 03:19 Follow up: Response: No adverse reaction wh 02:42 Drug: Lovenox 40 mg Route: Sub-Q; Site: left upper abdomen; wh 03:19 Follow up: Response: No adverse reaction 02:44 Drug: morphine 2 mg {Note: RASS 0.} Route: IVP; Site: right antecubital; 03:19 Follow up: Response: No adverse reaction; Pain is decreased; RASS: Alert and Calm (0) 02:46 Drug: Zofran (Ondansetron) 4 mg Route: IVP; Site: right jugular; 03:19 Follow up: Response: No adverse reaction; Nausea is decreased 02:48 Drug: Rocephin 1 grams Route: IV; Rate: per protocol; Site: right jugular; 03:18 Follow up: Response: No adverse reaction; IV Status: Completed infusion Disposition: 03/25/20 01:44 Hospitalization ordered by Jp Oshea for Inpatient Admission. Preliminary diagnosis are Dyspnea - volume overload, Systolic (congestive) heart failure, End stage renal disease - on hd, Elevated white blood cell count, Essential (primary) hypertension, Anemia, unspecified. - Bed requested for Telemetry/MedSurg (Inpatient). - Status is Inpatient Admission. bp - Condition is Fair. - Problem is new. - Symptoms have improved. Signatures: Dispatcher [employer] EDVickey Dominguez RN RN sg Anderson, Corey, MD MD cha Martinez, Eric Noelle Stephen RN RN cg Habalo, Winsy wh Peltier, Brian, RN RN bp Corrections: (The following items were deleted from the chart) 01:48 01:44 Hospitalization Ordered by Jp Oshea for Inpatient Admission. Preliminary [facility] diagnosis is Dyspnea; Systolic (congestive) heart failure; End stage renal disease - on hd. Bed requested for Telemetry/MedSurg (Inpatient). Status is Inpatient Admission. Condition is Fair. Problem is new. Symptoms have improved. kirsten 03:04 01:48 03/25/2020 01:44 Hospitalization Ordered by Jp Oshea for Inpatient cg Admission. Preliminary diagnosis is Dyspnea - volume overload; Systolic (congestive) heart failure; End stage renal disease - on hd. Bed requested for Telemetry/MedSurg (Inpatient). Status is Inpatient Admission. Condition is Fair. Problem is new. Symptoms have improved. kirsten 03:21 03:04 03/25/2020 01:44 Hospitalization Ordered by Jp Oshea for Inpatient kirsten Admission. Preliminary diagnosis is Dyspnea - volume overload; Systolic (congestive) heart failure; End stage renal disease - on hd. Bed requested for [facility] ER HOLD. Status is Inpatient Admission. Condition is Fair. Problem is new. Symptoms have improved. cg 07:50 03:21 03/25/2020 01:44 Hospitalization Ordered by Jp Oshea for Inpatient em1 Admission. Preliminary diagnosis is Dyspnea - volume overload; Systolic (congestive) heart failure; End stage renal disease - on hd; Elevated white blood cell count; Essential (primary) hypertension; Anemia, unspecified. Bed requested for [facility] ER HOLD. Status is Inpatient Admission. Condition is Fair. Problem is new. Symptoms have improved. kirsten 08:58 07:50 03/25/2020 01:44 Hospitalization Ordered by Jp Oshea for Inpatient bp Admission. Preliminary diagnosis is Dyspnea - volume overload; Systolic (congestive) heart failure; End stage renal disease - on hd; Elevated white blood cell count; Essential (primary) hypertension; Anemia, unspecified. Bed requested for Telemetry/MedSurg (Inpatient). Status is Inpatient Admission. Condition is Fair. Problem is new. Symptoms have improved. em1
[2020-03-25 02:13] LABS: Absolute Lymphocytes (CBC) 1.4 K/uL (0.7-4.9); Basophils % 0.4 % (0-1.3); Lymphocytes % 9.7 % (15.3-44.8); MPV 8.9 fL (7.6-11.3)
[2020-03-25 02:14] LABS: Protime INR 1.05
[2020-03-25] MEDS ORDERED: METHYLPREDNISOLONE 125 MG INJ ONE (02:23)
[2020-03-25] MEDS ORDERED: IPRATROPIUM BROM 0.5MG/2.5ML ONE (02:24)
[2020-03-25] MEDS ORDERED: ONDANSETRON 4 MG/2 ML VIAL ONE (02:24)
[2020-03-25] MEDS ORDERED: FUROSEMIDE 100 MG/10 ML VIAL IV ONE (02:24)
[2020-03-25] MEDS ORDERED: NITROGLYCERIN 1 GM PKT TD ONE (02:24)
[2020-03-25] MEDS ORDERED: MORPHINE 2 MG/ML SYR ONE (02:24)
[2020-03-25] MEDS ORDERED: LEVALBUTEROL 1.25 MG/3 ML NEB ONE (02:25)
[2020-03-25] MEDS ORDERED: CEFTRIAXONE/SWI 1gm 1 GM/10 ML SYR ONE (02:25)
[2020-03-25] MEDS ORDERED: ENOXAPARIN 40 MG/0.4 ML SQ ONE (02:25)
[2020-03-25] MEDS ORDERED: ALBUTEROL 2.5 MG/3 ML NEB SOL NEB PRN (02:36)
[2020-03-25] MEDS ORDERED: ONDANSETRON 4 MG/2 ML VIAL IV PRN (02:40)
[2020-03-25 02:42] LABS: Albumin 3.4 g/dL (3.4-5.0); Bilirubin Direct 0.2 mg/dL (0-0.2); Bilirubin Total 0.5 mg/dL (0.2-1.0); Magnesium 2.1 mg/dL (1.8-2.4); Potassium 4.1 mmol/L (3.5-5.1); Protein, Total 7.5 g/dL (6.4-8.2); Troponin (Emerg Dept Use Only) 0.03 ng/mL (0.0-0.045)
--- NOTE | 2020-03-25 02:42 | P.HP ---
Certification for Inpatient With expected LOS: >2 Midnights Patient will require the following post-hospital care: None Practitioner: I am a practitioner with admitting privileges, knowledge of patient current condition, hospital course, and medical plan of care. Services: Services provided to patient in accordance with Admission requirements found in Title 42 Section 412.3 of the Code of Federal Regulations <Victor ManuelJoseph acosta - Last Filed: 03/25/20 02:50> Patient History Date of Service: 03/25/20 Reason for admission: Congestive heart failure exacerbation/dyspnea/missed dial ysis History of Present Illness: 59-year-old female with past medical history of end-stage renal disease on dialysis Monday, essential hypertension, CAD, COPD, history of CVA, chronic diastolic heart failure, pulmonary hypertension presents to the emergency room complaining of worsening shortness of breath. Patient was in the ER yesterday complaining of shortness of breath. She was discharged home then returned today stating that her shortness of breath has not improved. Patient was also discharged from the hospital 3 days ago for similar complaint. In the emergency room patient states that she missed dialysis today. She is alert oriented x4. In no distress. She is also complaining of nausea and vomiting. Emergency room lab work shows an elevated creatinine of 9.66, white cell count of 14.9, [place] [address]. Patient white cell count was similar on 03/21 and her proBNP was also similar at 15,000 on 03/21. Patient is requiring O2 support. She appears volume overloaded. Patient will be admitted and further evaluated. - Past Medical/Surgical History Diabetic: No -: Pulmonary hypertension -: COPD -: History of CVA (left side weakness) -: Hepatitis-C -: ESRD, dialysis Tuesdays, and Saturdays -: Anemia of chronic disease -: cardiac bypass 2014 -: Chronic diastolic congestive heart failure -: Non compliance -: YOLANDA fistula -: -: Cholecystectomy Psychosocial/ Personal History: Patient currently lives in apartment with her daughters. - Family History Mother -: Heart disease Sister -: Hypertension - Social History Alcohol use: Yes CD- Drugs: No Caffeine use: Yes <Joseph Simon - Last Filed: 03/25/20 02:50> Date of Service: 03/25/20 <Roxanna Felipe - Last Filed: 03/26/20 13:25> Allergies No Known Allergies Allergy (Verified 03/25/20 04:04) Home Medications: Albuterol Sulfate [Albuterol Sulfate Hfa] 2 puff IH BEDTIME 03/20/20 Aspirin [Anthony Chewable] 81 mg PO DAILY 03/20/20 Carvedilol [Coreg] 1 tab PO BID 03/20/20 Clonidine HCl [Catapres*] 1 tab PO BID 03/20/20 Isosorbide Mononitrate [Isosorbide Mononitrate ER] 30 mg PO DAILY 03/20/20 Omeprazole [Prilosec] 40 mg PO DAILY 03/20/20 Ramipril [Altace] 5 mg PO DAILY 03/20/20 Nicotine [Nicotine Patch] 1 each TD DAILY #14 patch.td24 03/21/20 Prednisone [Sterapred Ds] 10 mg PO BID #21 tab.ds.pk 03/21/20 Review of Systems General: As per HPI Eyes: Unremarkable ENT: Unremarkable Respiratory: Shortness of Breath, SOB with Excertion, Wheezing Cardiovascular: Unremarkable Gastrointestinal: Nausea, Vomiting, As per HPI Genitourinary: Unremarkable Musculoskeletal: Unremarkable Integumentary: Unremarkable Neurological: Unremarkable Lymphatics: Unremarkable <Joseph Simon - Last Filed: 03/25/20 02:50> Physical Examination - Physical Exam General: Alert, In no apparent distress, Oriented x3 HEENT: Atraumatic, Normocephalic, PERRLA, Mucous membr. moist/pink Neck: Supple, No Thyromegaly Respiratory: Clear to auscultation bilaterally, Rhonchi/gurgles, Other (Mild labored breathing) Cardiovascular: Normal pulses, Regular rate/rhythm Capillary refill: <2 Seconds Gastrointestinal: Normal bowel sounds, Soft and benign, Non-distended Musculoskeletal: No clubbing, No swelling, No contractures, No tenderness Integumentary: No rashes, No breakdown, No significant lesion Neurological: Normal gait, Normal speech, Normal strength at 5/5 x4 extr, Normal tone - Studies Laboratory Data (last 24 hrs) 03/25/20 01:40: PT 12.4, INR 1.05 03/25/20 01:40: WBC 14.9 H D, Hgb 10.1 L, Hct 31.0 L, Plt Count 222 <AuroraJoseph - Last Filed: 03/25/20 02:50> Assessment and Plan - Plan Impression: Chronic diastolic heart failure with acute exacerbation complicated by history of COPD: End-stage renal disease on dialysis Monday: Nicotine abuse: History of CVA with residual left-sided weakness: Plan: Chronic diastolic heart failure with acute exacerbation complicated by history of COPD: Patient missed dialysis which shows volume overload likely on chest x- ray. Will give 1 dose of IV Lasix. Will place on continuous telemetry. Likely CHF exacerbation secondary to missed dialysis today. Monitor. End-stage renal disease on dialysis Monday: Will consult Dr. Estevez. Patient missed hemodialysis today. Creatinine of 9.66 on arrival to ED. Nicotine abuse: Will continue 21 mg nicotine patch daily. History of CVA with residual left-sided weakness: Stable. Will resume all medications once verified. Patient is a poor historian. Unable to contribute much past to why she missed her hemodialysis. Discharge Plan: Home Plan to discharge in: 48 Hours - Advance Directives Does patient have a Living Will: No Does patient have a Durable POA for Healthcare: No - Code Status/Comfort Care Code Status Assessed: Yes Time Spent Managing Pts Care (In Minutes): 55 <Ramiro Simonel - Last Filed: 03/25/20 02:50> Date of Service: 03/25/20 Agree with above findings; events noted. Spoke with patient and she is still short of breath. Will continue with diuresing and may benefit from additional volume being removed during HD PEXAM: agree with above ASST: 1. Acute CHF 2. Volume overload 3. ESRD 4. CAD s/p CABG 5. H/o of COPD 6. H/o of pulmonary HTN PLAN: 1. HD 2. Diuresing 3. Nebs as needed and continue with inhaler therapy 4. Strict BP and BS control 5. GI/DVT prophylaxis <Roxanna Felipe - Last Filed: 03/26/20 13:25>
--- NOTE | 2020-03-25 08:17 | RAD REPORT ---
EXAM DESCRIPTION: [facility] Single View03/25/2020 1:41 am CLINICAL HISTORY: Shortness of breath COMPARISON: March 24 FINDINGS: The lungs appear clear of acute infiltrate. The heart is mildly enlarged. Postsurgical changes involve the chest. IMPRESSION: No acute abnormalities displayed
[2020-03-25 08:18] LABS: Potassium 5.2 mmol/L (3.5-5.1)
[2020-03-25] MEDS ORDERED: PNEUMOCOCCAL VACCINE 0.5 ML IMVAC ONE (09:00)
[2020-03-25] MEDS: carvediloL 12.5 MG TAB PO SCH ×2 (11:31→21:14)
--- NOTE | 2020-03-25 12:02 | EKG ---
Test Date: 2020-03-25 Test Time: 02:33:24 [employer] Titles: RT MEASUREMENT RESULTS: Intervals: Rate: 75 WY: 150 QRSD: 78 QT: 416 QTc: 464 [place]: P: 92 WY: 150 QRS: 70 T: 53 INTERPRETIVE STATEMENTS: Normal sinus rhythm Anterior infarct, age undetermined Abnormal ECG Compared to ECG 03/19/2020 21:02:27 Myocardial infarct finding now present Sinus arrhythmia no longer present T-wave abnormality no longer present Prolonged QT interval no longer present Electronically Signed On 03-25-20 12:01:18 CDT by Bam Terry
[2020-03-25 13:09] LABS: Urine Appearance CLEAR; Urine Bilirubin NEGATIVE (NEG); Urine Blood NEGATIVE (NEG); Urine Color YELLOW; Urine Glucose NEGATIVE (NEG); Urine Protein 1+ (NEG); Urine Specific Gravity <=1.005 (1.005-1.030); Urine Urobilinogen 0.2 mg/dL (0.2-1.0)
[2020-03-25 13:22] LABS: Urine Microscopic Reflex ORDER UMIC
[2020-03-25 13:24] LABS: Urine Bacteria <20 /HPF (<20); Urine Culture Reflex Order NOT NEEDED; Urine RBC <5 /HPF (NONE SEEN)
[2020-03-25] MEDS: cloNIDine HCL 0.1 MG TAB PO SCH ×2 (14:51→21:14)
[2020-03-25] MEDS ORDERED: cloNIDine HCL 0.1 MG TAB PO SCH (21:00)
[2020-03-25] MEDS: ALBUTEROL INHALER 60 PUFF/8 GM IH SCH (21:00)
[2020-03-25] MEDS: predniSONE 10 MG TAB PO SCH (21:14)
[2020-03-25] MEDS ORDERED: GUAIFENESIN 600 MG SA TAB PO SCH (23:00)
[2020-03-25] MEDS: GUAIFENESIN 600 MG SA TAB PO PRN (23:03)
[2020-03-25] MEDS: ALBUTEROL 2.5 MG/3 ML NEB SOL NEB PRN (23:08)
[2020-03-26] MEDS: HEPARIN 5000 UNIT/ML 1 ML VIAL SQ SCH ×3 (00:25→17:21)
[2020-03-26 06:44] LABS: Absolute Lymphocytes (CBC) 0.7 K/uL (0.7-4.9); Basophils % 0.3 % (0-1.3); Hematocrit 28.8 % (36.0-45.0); Lymphocytes % 3.4 % (15.3-44.8); MPV 9.1 fL (7.6-11.3); RBC Red Blood Cell Count 3.38 M/uL (3.86-4.86)
[2020-03-26 07:13] LABS: Potassium 4.9 mmol/L (3.5-5.1)
[2020-03-26 08:30] LABS: Blood Morphology Comment NOT SEEN (NOT SEEN); Platelet Estimate ADEQ
--- NOTE | 2020-03-26 08:34 | P.CNS ---
Date of Consult: 03/26/20 Reason for Consult: ESRD Requesting Physician: Roxanna Felipe Chief Complaint: Congestive heart failure exacerbation/dyspnea/missed dialysis History of Present Illness: 59-year-old female with past medical history of end-stage renal disease on dialysis Monday, essential hypertension, CAD, COPD, history of CVA, chronic diastolic heart failure, pulmonary hypertension presents to the emergency room complaining of worsening shortness of breath. Patient was in the ER yesterday complaining of shortness of breath. She was discharged home then returned today stating that her shortness of breath has not improved. Patient was also discharged from the hospital 3 days ago for similar complaint. 01:13 This 59 yrs old Black Female presents to ER via EMS with complaints of Shortness Of kirsten Breath. 01:13 The patient has shortness of breath at rest, with light activity. Onset: The kirsten symptoms/episode began/occurred 3 day(s) ago. Duration: The symptoms are continuous, and are steadily getting worse. The patient's shortness of breath is aggravated by exertion, light activity, supine position, is alleviated by elevating head, application of supplemental oxygen. Associated signs and symptoms: Pertinent positives: non-productive cough. Allergies No Known Allergies Allergy (Verified 03/25/20 04:04) Home medications list reviewed: Yes Home Medications: Albuterol Sulfate [Albuterol Sulfate Hfa] 2 puff IH BEDTIME 03/20/20 Aspirin [Anthony Chewable] 81 mg PO DAILY 03/20/20 Carvedilol [Coreg] 1 tab PO BID 03/20/20 Clonidine HCl [Catapres*] 1 tab PO BID 03/20/20 Isosorbide Mononitrate [Isosorbide Mononitrate ER] 30 mg PO DAILY 03/20/20 Omeprazole [Prilosec] 40 mg PO DAILY 03/20/20 Ramipril [Altace] 5 mg PO DAILY 03/20/20 Nicotine [Nicotine Patch] 1 each TD DAILY #14 patch.td24 03/21/20 Prednisone [Sterapred Ds] 10 mg PO BID #21 tab.ds.pk 03/21/20 - Past Medical/Surgical History Diabetic: No -: Pulmonary hypertension -: COPD -: History of CVA (left side weakness) -: Hepatitis-C -: ESRD, dialysis Tuesdays, and Saturdays -: Anemia of chronic disease -: cardiac bypass 2014 -: Chronic diastolic congestive heart failure -: Non compliance -: YOLANDA fistula -: -: Cholecystectomy Psychosocial/ Personal History: Patient currently lives in apartment with her daughters. - Family History Mother Medical History: Heart disease Sister Medical History: Hypertension - Social History Smoking Status: Current every day smoker Alcohol use: Yes CD- Drugs: No Caffeine use: Yes Place of Residence: Home Review of Systems 10-point ROS is otherwise unremarkable General: Weakness, Malaise Respiratory: Cough, SOB with Excertion Neurological: Weakness Physical Examination Temp Pulse Resp BP Pulse Ox 97.0 F 57 20 140/63 99 03/26/20 04:00 03/26/20 04:00 03/26/20 04:00 03/26/20 04:00 03/26/20 04:00 General: Oriented x3, Cooperative HEENT: Atraumatic Neck: Supple Respiratory: Clear to auscultation bilaterally, Diminished Cardiovascular: Regular rate/rhythm, Edema Gastrointestinal: Soft and benign, Non-distended Musculoskeletal: No clubbing, No contractures Integumentary: No rashes, No cyanosis Neurological: Normal speech Blood work reviewed in the chart. Imagings Data: EXAM DESCRIPTION: [facility] Single View03/25/2020 1:41 am CLINICAL HISTORY: Shortness of breath COMPARISON: March 24 FINDINGS: The lungs appear clear of acute infiltrate. The heart is mildly enlarged. Postsurgical changes involve the chest. IMPRESSION: No acute abnormalities displayed Conclusions/Impression: A/ ESRD on HD Hyponatremia Hyperkalemia HTN with CKD/ CHF Diastolic CHF, A/C DM II with CKD Anemia in CKD HILARIO/ Secondary HyperPTH with hypocalcemia P/ Continue current POC and Medications Acute HD ordered. Restart home medications as indicated. Give Epo. Renal diet. No NSAIDs. AM labs. Daily weight. Thank you kindly for the consultation.
[2020-03-26] MEDS: cloNIDine HCL 0.1 MG TAB PO SCH ×2 (08:56→20:38)
[2020-03-26] MEDS: ramipriL 5 MG CAP PO SCH (08:56)
[2020-03-26] MEDS: ASPIRIN 81 MG CHEWABLE TABLET PO SCH (08:56)
[2020-03-26] MEDS: ISOSORBIDE MONO SR 30 MG TAB PO SCH (08:56)
[2020-03-26] MEDS: carvediloL 12.5 MG TAB PO SCH ×2 (08:57→20:38)
[2020-03-26] MEDS: PANTOPRAZOLE 40MG TABLET PO SCH (08:57)
[2020-03-26] MEDS: predniSONE 10 MG TAB PO SCH ×2 (08:57→20:38)
[2020-03-26] MEDS ORDERED: HOME MED 1 EA UNK (Omeprazole [Prilosec] 40 MG) PO SCH (09:00)
[2020-03-26] MEDS: NICOTINE 7 MG/PAT TD SCH (09:04)
--- NOTE | 2020-03-26 11:59 | P.PN ---
Subjective Date of Service: 03/26/20 Primary Care Provider: Unique Chief Complaint: Congestive heart failure exacerbation/dyspnea/missed dialysis Patient was recently discharged. She has a history of noncompliance. She was supposed to come to the office yesterday. However she stated she got short of breath and came to the ER. She states that she missed her dialysis to the ER doctor and the hospital. However she denies this to me. The patient was called by the office staff. She appeared to be sluring her words. This may have been from uremia or she has a history of substance abuse. She denies using. She does complaint of trush in her mouth Review of Systems 10-point ROS is otherwise unremarkable ENT: Mouth Pain Respiratory: Cough, Shortness of Breath Physical Examination - Vital Signs Temperature: 97.6 F Blood Pressure: 151/66 Pulse: 56 Respirations: 19 Pulse Ox (%): 99 - Physical Exam General: Alert, In no apparent distress HEENT: Atraumatic, PERRLA, EOMI Neck: Supple, JVD not distended Respiratory: Clear to auscultation bilaterally, Normal air movement Cardiovascular: Regular rate/rhythm, Normal S1 S2 Gastrointestinal: Normal bowel sounds, No tenderness Musculoskeletal: No tenderness Integumentary: No rashes Neurological: Normal speech, Normal tone, Normal affect Lymphatics: No axilla or inguinal lymphadenopathy Assessment & Plan - Problems (Diagnosis) (1) Acute on chronic diastolic CHF (congestive heart failure) Onset Date: 05/08/17 Current Visit: No Status: Acute Plan: Will continue her on dialysis per Dr. Robertson. (2) ESRD (end stage renal disease) on dialysis Onset Date: 01/06/16 Current Visit: No Status: Chronic Plan: Per Dr. Robertson (3) HTN (hypertension) Onset Date: 05/08/17 Current Visit: No Status: Chronic Plan: she is currently only mildly elevated. Will continue her on her home medications. Qualifiers: (4) Tobacco abuse Onset Date: 01/25/18 Current Visit: No Status: Chronic Plan: Continue the nicotine patch Discharge Plan: Home Plan to discharge in: 24 Hours - Code Status/Comfort Care Code Status Assessed: No Physician Review: Patient Assessed, Agree with Above Assessment and Plan Critical Care: No Time Spent Managing Pts Care (In Minutes): 30
[2020-03-26] MEDS: NYSTATIN 500,000 UNIT/5 ML UDC PO SCH ×2 (13:29→20:38)
[2020-03-26 14:32] LABS: Barbiturates NEGATIVE (NEGATIVE); Benzodiazepines NEGATIVE (NEGATIVE); Cocaine POSITIVE (NEGATIVE); METHAMPHETAM NEGATIVE (NEGATIVE); Methadone NEGATIVE (NEGATIVE); Opiates NEGATIVE (NEGATIVE); Phencyclidine NEGATIVE (NEGATIVE); THC Cannibis NEGATIVE (NEGATIVE)
[2020-03-26] MEDS: GUAIFENESIN 600 MG SA TAB PO PRN (21:22)
[2020-03-26] MEDS: ALBUTEROL INHALER 60 PUFF/8 GM IH SCH (21:23)
[2020-03-27] MEDS: HEPARIN 5000 UNIT/ML 1 ML VIAL SQ SCH ×2 (00:01→08:57)
[2020-03-27] MEDS: ALBUTEROL 2.5 MG/3 ML NEB SOL NEB PRN (00:25)
[2020-03-27 05:19] VITALS: O2SAT 100
[2020-03-27 05:53] VITALS: BMI 4583.6
[2020-03-27] MEDS: NICOTINE 7 MG/PAT TD SCH (08:56)
[2020-03-27] MEDS: cloNIDine HCL 0.1 MG TAB PO SCH (08:57)
[2020-03-27] MEDS: GUAIFENESIN 600 MG SA TAB PO PRN (08:59)
[2020-03-27] MEDS: ramipriL 5 MG CAP PO SCH (08:59)
[2020-03-27] MEDS: ISOSORBIDE MONO SR 30 MG TAB PO SCH (08:59)
[2020-03-27] MEDS: NYSTATIN 500,000 UNIT/5 ML UDC PO SCH ×2 (08:59→14:11)
[2020-03-27] MEDS: PANTOPRAZOLE 40MG TABLET PO SCH (08:59)
[2020-03-27] MEDS: ASPIRIN 81 MG CHEWABLE TABLET PO SCH (08:59)
[2020-03-27] MEDS: predniSONE 10 MG TAB PO SCH (08:59)
[2020-03-27] MEDS: carvediloL 12.5 MG TAB PO SCH (09:00)
--- NOTE | 2020-03-27 10:23 | P.DS ---
Admission Date: 03/25/20 Discharge Date: 03/27/20 Disposition: ROUTINE DISCHARGE Discharge Condition: GOOD Reason for Admission: Congestive heart failure exacerbation/dyspnea/missed dialysis - Problems (1) Acute on chronic diastolic CHF (congestive heart failure) Onset Date: 05/08/17 Current Visit: No Status: Acute (2) ESRD (end stage renal disease) on dialysis Onset Date: 01/06/16 Current Visit: No Status: Chronic (3) HTN (hypertension) Onset Date: 05/08/17 Current Visit: No Status: Chronic Qualifiers: (4) Tobacco abuse Onset Date: 01/25/18 Current Visit: No Status: Chronic (5) Cocaine abuse Onset Date: 05/28/18 Current Visit: No Status: Acute Brief History of Present Illness: Patient was admitted by hospitalist. Please see that note. She was admitted for shortness of breath. Stated she had missed her dialysis. She denied this to me. However she had stated that with her er doctor and admitting physician. Hospital Course: Patient was admitted to the floor. Had her dialysis run by Dr. Hatch. She tested positive for cocaine. She has had that issue in the past. Denied this several times however she did eventually admit to the use of cocaine. This would explain her non compliance. Will discharge her on some prednisione. She can follow up with me in a week with us. Vital Signs/Physical Exam: Temp Pulse Resp BP Pulse Ox 97.6 F 52 16 167/72 H 100 03/27/20 08:00 03/27/20 09:00 03/27/20 08:00 03/27/20 08:59 03/27/20 08:00 General: Alert, In no apparent distress HEENT: Atraumatic, PERRLA, EOMI Neck: Supple, JVD not distended Respiratory: Clear to auscultation bilaterally, Normal air movement Cardiovascular: Regular rate/rhythm, Normal S1 S2 Gastrointestinal: Normal bowel sounds, No tenderness Musculoskeletal: No tenderness Integumentary: No rashes Neurological: Normal speech, Normal tone, Normal affect Lymphatics: No axilla or inguinal lymphadenopathy Laboratory Data at Discharge: WBC 21.4 K/uL (4.3-10.9) H* D 03/26/20 06:31 Hgb 9.3 g/dL (12.0-15.0) L 03/26/20 06:31 Hct 28.8 % (36.0-45.0) L 03/26/20 06:31 Plt Count 205 K/uL (152-406) 03/26/20 06:31 PT 12.4 SECONDS (9.5-12.5) 03/25/20 01:40 INR 1.05 03/25/20 01:40 Sodium 133 mmol/L (136-145) L 03/26/20 06:31 Potassium 4.9 mmol/L (3.5-5.1) 03/26/20 06:31 BUN 53 mg/dL (7-18) H 03/26/20 06:31 Creatinine 7.80 mg/dL (0.55-1.3) H* D 03/26/20 06:31 Glucose 183 mg/dL (74-106) H 03/26/20 06:31 Magnesium 2.1 mg/dL (1.8-2.4) 03/25/20 01:40 Total Bilirubin 0.5 mg/dL (0.2-1.0) 03/25/20 01:40 AST 8 U/L (15-37) L 03/25/20 01:40 ALT 12 U/L (12-78) 03/25/20 01:40 Alkaline Phosphatase 171 U/L (45-117) H 03/25/20 01:40 Home Medications: Albuterol Sulfate [Albuterol Sulfate Hfa] 2 puff IH BEDTIME 03/20/20 Aspirin [Anthony Chewable] 81 mg PO DAILY 03/20/20 Carvedilol [Coreg] 1 tab PO BID 03/20/20 Clonidine HCl [Catapres*] 1 tab PO BID 03/20/20 Isosorbide Mononitrate [Isosorbide Mononitrate ER] 30 mg PO DAILY 03/20/20 Omeprazole [Prilosec] 40 mg PO DAILY 03/20/20 Ramipril [Altace] 5 mg PO DAILY 03/20/20 Nicotine [Nicotine Patch] 1 each TD DAILY #14 patch.td24 03/21/20 Prednisone [Sterapred Ds] 10 mg PO BID #21 tab.ds.pk 03/21/20 predniSONE [Deltasone*] 10 mg PO BID 6 Days #9 tab 03/27/20 New Medications: predniSONE [Deltasone*] 10 mg PO BID 6 Days #9 tab Diet: AHA Followup: George Calhoun MD [ACTIVE - CAN ADMIT] -
--- NOTE | 2020-03-27 10:46 | PN ---
Date of Progress Note: 03/27/2020 Subjective: The patient is seen and examined. She is complaining of some shortness of breath still. Objective: Vital Signs: Have been reviewed and are stable. General: She appears in no acute distress. HEENT: Atraumatic head. Lungs: Clear to auscultation with diminished breath sounds at bases. Abdomen: Soft and nontender. Laboratory Data: At this time are showing a WBC count of 21,000, hemoglobin of 9.3, hematocrit is 28 .8, and platelet count of 205. Medications: Current medications have been reviewed in detail. Impression: 1.End-stage renal disease, on dialysis. 2.Cocaine abuse with noncompliance with dialysis. 3.Hypertension. 4.Pulmonary edema with shortness of breath. 5.Anemia secondary to end-stage renal disease. Plan: The patient is overall doing okay. She seems significantly short of breath still. At this ti me, I will arrange for her to get an extra round of dialysis today and try to do more ultrafiltration to see how she does. I will discuss further with Dr. Calhoun. She has been counseled again about iraida donita abuse and the hazards associated with cocaine abuse and the need for dialysis compliance. I brady l continue all other medications and plan of care. VV/MODL Voice ID: [id number] Report ID: [id number]
[2020-03-27 12:09] VITALS: BP 120/64; TEMP 98.2
== END 2020-03-27 15:55 | disposition home or self-care (01) | DRG 291 ==
LOC: ER 00:46 → ERHOLD 02:57 → 2ND 08:32
PROVIDERS: ADMIT Internal Medicine; ATTEND Internal Medicine
PROC: 5A1D70Z Performance of Urinary Filtration, Intermittent, Less than 6 Hours Per Day (ICD-10-PCS; principal; 2020-03-26)
DX: I13.2 Hypertensive heart and chronic kidney disease with heart failure and with stage 5 chronic kidney disease, or end stage renal disease (principal); N18.6 End stage renal disease; I50.33 Acute on chronic diastolic (congestive) heart failure; I69.354 Hemiplegia and hemiparesis following cerebral infarction affecting left non-dominant side; E87.1 Hypo-osmolality and hyponatremia; D63.1 Anemia in chronic kidney disease; I25.10 Atherosclerotic heart disease of native coronary artery without angina pectoris; E21.1 Secondary hyperparathyroidism, not elsewhere classified; F14.10 Cocaine abuse, uncomplicated; N25.0 Renal osteodystrophy; E11.22 Type 2 diabetes mellitus with diabetic chronic kidney disease; E87.5 Hyperkalemia; F17.200 Nicotine dependence, unspecified, uncomplicated; J44.9 Chronic obstructive pulmonary disease, unspecified; Z90.49 Acquired absence of other specified parts of digestive tract; Z95.828 Presence of other vascular implants and grafts; Z79.82 Long term (current) use of aspirin; Z99.2 Dependence on renal dialysis; Z91.15 Patient's noncompliance with renal dialysis; Z79.52 Long term (current) use of systemic steroids; Z79.899 Other long term (current) drug therapy; Z20.828 Contact with and (suspected) exposure to other viral communicable diseases
CPT/HCPCS: 36415; 71045; 80048; 80076; 80307; 80320; 81003; 81015; 82550; 82553; 83690; 83735; 83880; 84484; 85025; 85379; 85610; 85730; 87040; 87070; 87081; 87205; 87804; 90935; 93005; 94640; 94660; 94760; 96372; 96374; 99285; J0696; J1644; J1650; J2270; J2405; J2930; J7512; U0002; U0003

== ENCOUNTER 2020-04-06 16:55 | Emergency (ER) | payer OTHER ==
[2020-04-06] MEDS ORDERED: METHYLPREDNISOLONE 125 MG INJ ONE (18:36)
[2020-04-06] MEDS ORDERED: ALBUTEROL INHALER 60 PUFF/8 GM IH ONE (18:36)
[2020-04-06] MEDS ORDERED: METHYLPREDNISOLONE 40 MG INJ ONE (18:47)
--- NOTE | 2020-04-06 18:54 | RAD REPORT ---
EXAM DESCRIPTION: RAD - Chest Single View - 04/06/2020 5:49 pm CLINICAL HISTORY: SOB Chest pain. COMPARISON: Chest Single View dated 03/25/2020; Chest Single View dated 03/24/2020; Chest Pa And Lat ( 2 Views) dated 03/19/2020; Chest Single View dated 04/25/2019 FINDINGS: Portable technique limits examination quality. Mild to moderate pulmonary edema suspected. The heart is moderately enlarged. No displaced fractures. Sternotomy wires present. IMPRESSION: Mild to moderate CHF or volume overload is suspected.
[2020-04-06 18:58] LABS: Absolute Lymphocytes (CBC) 0.6 K/uL (0.7-4.9); Basophils % 0.2 % (0-1.3); Hematocrit 25.8 % (36.0-45.0); Lymphocytes % 4.7 % (15.3-44.8); MPV 9.4 fL (7.6-11.3); RBC Red Blood Cell Count 2.96 M/uL (3.86-4.86)
[2020-04-06 18:59] LABS: Protime INR 1.03
[2020-04-06 19:16] LABS: Bilirubin Direct 0.1 mg/dL (0-0.2); Bilirubin Total 0.3 mg/dL (0.2-1.0); Magnesium 1.9 mg/dL (1.8-2.4); Potassium 4.3 mmol/L (3.5-5.1); Protein, Total 6.5 g/dL (6.4-8.2); Troponin (Emerg Dept Use Only) 0.02 ng/mL (0.0-0.045)
--- NOTE | 2020-04-06 19:33 | RAD REPORT ---
EXAM DESCRIPTION: US - Extremity Venous Uni Ltd - 04/06/2020 7:22 pm CLINICAL HISTORY: SWELLING Arm pain and swelling. COMPARISON: Upper Ext Artery Uni Ba dated 02/22/2019 FINDINGS: Left upper extremity venous system was interrogated with Doppler technique. Normal flow, c ompressibility and augmentation was noted. There is no DVT present. IMPRESSION: No evidence of left upper extremity deep venous thrombosis.
[2020-04-06] MEDS ORDERED: FUROSEMIDE 100 MG/10 ML VIAL IV ONE (20:16)
[2020-04-06 20:33] LABS: Blood Morphology Comment NOTED (NOT SEEN); Platelet Estimate DECR; Poikilocytosis 2+; White Blood Cell Scan OK (OK)
--- NOTE | 2020-04-06 21:09 | EDPHYS ---
Physician Documentation [facility] Name: Michelle Ochoa Age: 59 yrs Sex: Female : 1960 Arrival Date: 04/06/2020 Time: 17:15 Bed 6 Private MD: ED Physician Duong Vasquez HPI: 04/06 17:25 This 59 yrs old Black Female presents to ER via EMS with complaints of shortness of cp breath. 17:25 The patient has shortness of breath at rest. Onset: The symptoms/episode began/occurred cp yesterday. 17:25 Duration: The symptoms are intermittent, worse today. cp 17:25 Associated signs and symptoms: Pertinent positives: productive cough, Pertinent cp negatives: diaphoresis, fever, hemoptysis. Severity of symptoms: in the emergency department the symptoms have improved mildly, after breathing treatment by EMS. Historical: - Allergies: 17:32 No Known Allergies; ca1 - PMHx: 17:32 Anemia; Bronchitis; CHF; COPD; CVA; Dementia; Dialysis- T//Mon; ENDOCARDITIS; ESRD; ca1 Hypertension; kidney failure; PATRICK; osteoarthritis; Renal Disease; - PSHx: 17:32 Triple bypass; ca1 - Immunization history:: Adult Immunizations up to date. - Social history:: Smoking status: Patient reports the use of cigarette tobacco products, smokes one-half pack cigarettes per day. ROS: 17:30 Constitutional: Negative for body aches, chills, fever, poor PO intake. cp 17:30 ENT: Negative for drainage from ear(s), ear pain, sore throat, difficulty swallowing, cp difficulty handling secretions. 17:30 Cardiovascular: Negative for chest pain, edema, palpitations. 17:30 Respiratory: Positive for cough, "sounds productive", shortness of breath, at rest. 17:30 Abdomen/GI: Negative for abdominal pain, nausea, vomiting, and diarrhea. 17:30 Neuro: Negative for altered mental status, headache, weakness. 17:30 All other systems are negative. Exam: 17:30 ECG was reviewed by the Attending Physician. cp 17:35 Constitutional: The patient appears in no acute distress, alert, awake, cp non-diaphoretic, non-toxic, well developed, well nourished. 17:35 Head/Face: Normocephalic, atraumatic. cp Vital Signs: 17:15 BP 141 / 65; Pulse 63; Resp 20; Pulse Ox 100% on R/A; Weight 72.12 kg (R); Height 5 ft. ca1 1 in. (154.94 cm) (R); Pain 0/10; 18:46 BP 128 / 56; Pulse 60; Resp 19; Temp 97.5(TE); Pulse Ox 99% on R/A; ca1 19:40 BP 134 / 87; Pulse 58; Resp 22; Pulse Ox 99% on R/A; wh 20:40 BP 145 / 77; Pulse 55; Resp 24; Pulse Ox 99% on R/A; wh 21:41 BP 118 / 99; Pulse 56; Resp 22; Pulse Ox 100% on R/A; wh 23:00 BP 142 / 79; Pulse 57; Resp 21; Pulse Ox 100% on R/A; wh 04/07 00:00 BP 164 / 74; Pulse 51; Resp 21; Pulse Ox 99% on R/A; wh 04/06 17:15 Body Mass Index 30.04 (72.12 kg, 154.94 cm) ca1 MDM: 04/06 17:25 Patient medically screened. cp 04/06 17:19 Order name: Basic Metabolic Panel; Complete Time: 19:39 cp 04/06 19:39 Interpretation: Normal except: NA 134; GLUC 155; BUN 69; CRE 7.69; GFR 7. cp 04/06 17:19 Order name: CBC with Diff; Complete Time: 20:45 cp 04/06 19:39 Interpretation: Normal except: WBC 13.6; RBC 2.96; HGB 8.4; HCT 25.8; PLT 152; MARII% cp 90.2; LYM% 4.7; NEUT A 12.3; LYMA 0.6. 04/06 17:19 Order name: LFT's; Complete Time: 19:39 cp 04/06 20:51 Interpretation: Normal except: AST 12; ALK 187; ALB 3.0; A/G 0.9. cp 04/06 17:19 Order name: Magnesium; Complete Time: 19:39 cp 04/06 17:19 Order name: NT PRO-BNP; Complete Time: 19:39 cp 04/06 17:19 Order name: PT-INR; Complete Time: 19:39 cp 04/06 17:19 Order name: US Extremity Venous Unilateral Ltd; Complete Time: 19:39 cp 04/06 19:39 Interpretation: Report reviewed. cp 04/06 17:19 Order name: Troponin (emerg Dept Use Only); Complete Time: 19:39 cp 04/06 17:19 Order name: XRAY Chest (1 view); Complete Time: 19:39 cp 04/06 19:40 Interpretation: Report reviewed. cp 04/06 17:19 Order name: Blood Culture Adult (2) cp 04/06 17:19 Order name: Procalcitonin; Complete Time: 20:09 cp 04/06 20:09 Interpretation: Reviewed. cp 04/06 18:56 Order name: SARS-COV-2 RT PCR; Complete Time: 20:09 EDMS 04/06 20:33 Order name: CBC Smear Scan; Complete Time: 20:45 EDMS 04/06 17:19 Order name: EKG; Complete Time: 17:20 cp 04/06 17:19 Order name: Cardiac monitoring; Complete Time: 17:30 cp 04/06 17:19 Order name: EKG - Nurse/Tech; Complete Time: 17:30 cp 04/06 17:19 Order name: IV Saline Lock; Complete Time: 18:40 cp 04/06 17:19 Order name: Labs collected and sent; Complete Time: 18:40 cp 04/06 17:19 Order name: O2 Per Protocol; Complete Time: 17:30 cp 04/06 17:19 Order name: O2 Sat Monitoring; Complete Time: 17:30 cp EC:30 Rate is 60 beats/min. Rhythm is regular. AK interval is normal. QRS interval is normal. cp QT interval is normal. T waves are Inverted in leads I, aVL. Interpreted by me. Reviewed by me. Administered Medications: 18:30 Drug: Albuterol HFA Inhaler 2 puffs Route: Inhalation; ca1 18:40 Drug: SOLU-Medrol 80 mg Route: IVP; Site: right hand; ca1 21:16 Follow up: Response: No adverse reaction 20:08 Drug: Lasix 100 mg {Note: 155/76.} Route: IVP; Site: right hand; wh 21:16 Follow up: Response: No adverse reaction 21:16 Drug: LevaQUIN 500 mg Volume: 100 ml; Route: IVPB; Infused Over: 60 mins; Site: right wh hand; 21:43 Follow up: Response: No adverse reaction; IV Status: Completed infusion Disposition: 04/07 08:05 Co-signature as Attending Physician, Duong Vasquez MD. rn Disposition: 04/06/20 21:[address] [facility]. Diagnosis are Dyspnea, Pulmonary edema, Unspecified combined systolic (congestive) and diastolic (congestive) heart failure, Chronic obstructive pulmonary disease with (acute) exacerbation. - Reason for transfer: Higher level of care. - Accepting physician is DR Gibbons. - Condition is Stable. - Problem is new. - Symptoms have improved. Signatures: Dispatcher [employer] EDKS Duong Vasquez MD MD rn Fortino Meehan PA PA cp Habalo, Winsy Cynthia Green RN RN ca1 Corrections: (The following items were deleted from the chart) 04/06 18:57 17:19 CORONAVIRUS+MR.LAB.BRZ ordered. [facility] 21:09 21:08 04/06/2020 21:[address] [facility]. Diagnosis is Dyspnea. Reason for transfer: Higher level of care. Accepting physician is DR Gibbons. Condition is Stable. Problem is new. Symptoms have improved. 04/07 00:23 04/06 21:09 04/06/2020 21:[address] [facility]. Diagnosis is Dyspnea; Pulmonary edema; Unspecified combined systolic (congestive) and diastolic (congestive) heart failure; Chronic obstructive pulmonary disease with (acute) exacerbation. Reason for transfer: Higher level of care. Accepting physician is DR Gibbons. Condition is Stable. Problem is new. Symptoms have improved. cp
--- NOTE | 2020-04-06 21:09 | ER ---
Nurse's Notes [facility] Name: Michelle Ochoa Age: 59 yrs Sex: Female : 1960 Arrival Date: 04/06/2020 Time: 17:15 Bed 6 Private MD: Diagnosis: Dyspnea;Pulmonary edema;Unspecified combined systolic (congestive) and diastolic (congestive) heart failure;Chronic obstructive pulmonary disease with (acute) exacerbation Presentation: 04/06 17:15 Chief complaint: EMS states: Pt on dialysis T, TH, Sat. Last Dialysis was Monday, due ca1 tomorrow Monday. C/O of difficulty breathing since last night. Called EMS last night for same thing, breathing treatment given with relief, stayed home and did not come to the ER. Difficulty of breathing persists today, A\T\A given no relief. Denies chest pain. Reports productive cough x 1 week. Hx of COPD, CHF, SC 4 yrs ago, HPN. VS BP 124/56, ND 60, 100% RA, Temp 98.2F. Denies fever. Reports swelling on L arm, L upper arm where dialysis fistula is. Coronavirus screen: Client denies travel out of the [place] in the last 14 days. cough unrelated to allergies, shortness of breath, Client presents with at least one sign or symptom that may indicate coronavirus-19. Standard/surgical mask placed on the client. Provider contacted for isolation considerations. Ebola Screen: Patient negative for fever greater than or equal to 101.5 degrees Fahrenheit, and additional compatible Ebola Virus Disease symptoms Patient denies exposure to infectious person. Patient denies travel to an Ebola-affected area in the 21 days before illness onset. No symptoms or risks identified at this time. Initial Sepsis Screen: Does the patient meet any 2 criteria? No. Patient's initial sepsis screen is negative. Does the patient have a suspected source of infection? No. Patient's initial sepsis screen is negative. Risk Assessment: Do you want to hurt yourself or someone else? Patient reports no desire to harm self or others. Onset of symptoms was April 06, 2020. 17:15 Method Of Arrival: EMS: [facility] ca1 17:15 Acuity: ZAID 3 ca1 Historical: - Allergies: 17:32 No Known Allergies; ca1 - PMHx: 17:32 Anemia; Bronchitis; CHF; COPD; CVA; Dementia; Dialysis- T/Th/Sat; ENDOCARDITIS; ESRD; ca1 Hypertension; kidney failure; PATRICK; osteoarthritis; Renal Disease; - PSHx: 17:32 Triple bypass; ca1 - Immunization history:: Adult Immunizations up to date. - Social history:: Smoking status: Patient reports the use of cigarette tobacco products, smokes one-half pack cigarettes per day. Screenin:30 Abuse screen: Denies threats or abuse. Denies injuries from another. Nutritional ca1 screening: No deficits noted. Tuberculosis screening: No symptoms or risk factors identified. Fall Risk IV access (20 points). Assessment: 17:30 General: Appears in no apparent distress. comfortable, Behavior is calm, cooperative, ca1 appropriate for age. Pain: Denies pain. Neuro: Level of Consciousness is awake, alert, obeys commands, Oriented to person, place, time, situation. Cardiovascular: Heart tones S1 S2 present Capillary refill < 3 seconds Patient's skin is warm and dry. Rhythm is sinus rhythm. Cardiovascular: Dialysis shunt: in the left bicep, with palpable thrill, with auscultated bruit, with no erythema, with no edema, no bleeding noted. Cardiovascular: Capillary refill Respiratory: Reports shortness of breath at rest since last night cough that is productive, since a week ago Airway is patent Respiratory effort is even, unlabored, Respiratory pattern is symmetrical, tachypnea Breath sounds with wheezes bilaterally. the patient has mild shortness of breath. GI: Abdomen is round non-distended, Bowel sounds present X 4 quads. Abd is soft and non tender X 4 quads. : No signs and/or symptoms were reported regarding the genitourinary system. EENT: No signs and/or symptoms were reported regarding the EENT system. Derm: Skin is intact, is healthy with good turgor, Skin is pink, warm \T\ dry. Musculoskeletal: Circulation, motion, and sensation intact. Capillary refill < 3 seconds. Musculoskeletal: Swelling present in face, left breast and left arm. 18:46 Reassessment: Patient appears in no apparent distress at this time. Patient and/or ca1 family updated on plan of care and expected duration. Pain level reassessed. Patient is alert, oriented x 3, equal unlabored respirations, skin warm/dry/pink. 18:47 Reassessment: US at bedside at this time. ca1 19:15 Reassessment: Pt still at room 24 undergoing ultrasound. 19:30 General: Appears in no apparent distress. Behavior is calm, cooperative, appropriate wh for age. Pain: Denies pain. Neuro: Level of Consciousness is awake, alert, obeys commands, Oriented to person, place, time, situation, Appropriate for age. Cardiovascular: Heart tones S1 S2 Capillary refill < 3 seconds Edema left arm Dialysis shunt: in the left arm. Respiratory: Reports shortness of breath cough that is Airway is patent Respiratory effort is even, unlabored, Respiratory pattern is symmetrical, tachypnea Breath sounds with rales Breath sounds with wheezes bilaterally. the patient has mild shortness of breath. GI: Abdomen is round non-distended. : No signs and/or symptoms were reported regarding the genitourinary system. EENT: eye puffiness. Derm: Skin is intact. Musculoskeletal: Circulation, motion, and sensation intact. 20:30 Reassessment: Patient appears in no apparent distress at this time. Patient and/or family updated on plan of care and expected duration. Pain level reassessed. Patient is alert, oriented x 3, equal unlabored respirations, skin warm/dry/pink. Updated on POC need for transfer. 21:30 Reassessment: Patient appears in no apparent distress at this time. Patient and/or family updated on plan of care and expected duration. Pain level reassessed. Patient is alert, oriented x 3, equal unlabored respirations, skin warm/dry/pink. 22:05 Reassessment: Report called to Martha Branham RN. 04/07 00:00 Reassessment: Patient appears in no apparent distress at this time. Patient and/or family updated on plan of care and expected duration. Pain level reassessed. Patient is alert, oriented x 3, equal unlabored respirations, skin warm/dry/pink. Vital Signs: 04/06 17:15 BP 141 / 65; Pulse 63; Resp 20; Pulse Ox 100% on R/A; Weight 72.12 kg (R); Height 5 ft. ca1 1 in. (154.94 cm) (R); Pain 0/10; 18:46 BP 128 / 56; Pulse 60; Resp 19; Temp 97.5(TE); Pulse Ox 99% on R/A; ca1 19:40 BP 134 / 87; Pulse 58; Resp 22; Pulse Ox 99% on R/A; wh 20:40 BP 145 / 77; Pulse 55; Resp 24; Pulse Ox 99% on R/A; wh 21:41 BP 118 / 99; Pulse 56; Resp 22; Pulse Ox 100% on R/A; wh 23:00 BP 142 / 79; Pulse 57; Resp 21; Pulse Ox 100% on R/A; wh 04/07 00:00 BP 164 / 74; Pulse 51; Resp 21; Pulse Ox 99% on R/A; wh 04/06 17:15 Body Mass Index 30.04 (72.12 kg, 154.94 cm) ca1 ED Course: 04/06 17:15 Patient arrived in ED. ca1 17:16 Fortino Meehan PA is PHCP. cp 17:16 Duong Vasquez MD is Attending Physician. cp 17:19 EKG done, by ED staff, reviewed by Duong Vasquez MD. mt 17:22 Cynthia Green RN is Primary Nurse. ca1 17:30 Patient has correct armband on for positive identification. Placed in gown. Bed in low ca1 position. Call light in reach. Side rails up X2. school lunch monitor on. Pulse ox on. NIBP on. Warm blanket given. Head of bed elevated. 17:31 Triage completed. ca1 17:32 Arm band placed on right wrist. ca1 17:49 US Extremity Venous Unilateral Ltd In Process Unspecified. EDMS 17:50 XRAY Chest (1 view) In Process Unspecified. EDMS 17:52 Missed attempt(s): 20 gauge in right antecubital area. Bleeding controlled, band aid mt applied, catheter tip intact. 18:02 Missed attempt(s): 22 gauge in right antecubital area. Bleeding controlled, band aid ca1 applied, catheter tip intact. 18:10 Missed attempt(s): 22 gauge in right hand. Bleeding controlled, band aid applied, ca1 catheter tip intact. 18:40 Inserted saline lock: 22 gauge in right hand, using aseptic technique. ,using aseptic ca1 technique. by SAÚL Grimes Blood collected. 18:40 Initial lab(s) drawn, by ED staff, sent to lab. First set of blood cultures drawn by ED ca1 staff. 19:06 Report given to SAÚL Constantino. ca1 20:09 Initiated transfer at [facility] with [facility]. She said she would work on everything and tt3 call back. 20:43 Jael called back with their physician for doc to doc with GABE Malone. tt3 21:00 Joe Schmidt, RN, Literacy Coach, gave admin approval. The pt is going to 10 tt3 tower room 1062. The accepting physician is Raúl Watkins. Report to be called to and face sheet to be faxed to [phone]. 10 00:22 No provider procedures requiring assistance completed. Patient transferred, IV remains in place. Administered Medications: 04/06 18:30 Drug: Albuterol HFA Inhaler 2 puffs Route: Inhalation; [facility] 18:40 Drug: SOLU-Medrol 80 mg Route: IVP; Site: right hand; [facility] 21:16 Follow up: Response: No adverse reaction 20:08 Drug: Lasix 100 mg {Note: 155/76.} Route: IVP; Site: right hand; 21:16 Follow up: Response: No adverse reaction 21:16 Drug: LevaQUIN 500 mg Volume: 100 ml; Route: IVPB; Infused Over: 60 mins; Site: right hand; 21:43 Follow up: Response: No adverse reaction; IV Status: Completed infusion Outcome: 21:08 ER care complete, transfer ordered by MD. moore 04/07 00:22 Transferred by ground EMS to [facility], Transfer form completed. X-rays sent w/ patient. Note: Report given to [facility] Condition: stable Instructed on the need for transfer. 00:23 Patient left the ED. Signatures: Dispatcher [employer] EDMS Fortino Meehan PA PA cp Thompson, Moriah mt [place], Winsy Cynthia Green RN RN ca1 Virgil Cheng tt3 Corrections: (The following items were deleted from the chart) 04/06 18:46 17:30 General: Appears in no apparent distress. comfortable, Behavior is calm, ca1 cooperative, appropriate for age, [facility] 18:46 17:30 Respiratory: Reports shortness of breath at rest since last night cough that is ca1 productive, since a week ago Airway is patent Respiratory effort is even, unlabored, Respiratory pattern is symmetrical, tachypnea Breath sounds with wheezes bilaterally. ca1 18:50 18:46 BP 128 / 56; Pulse 60bpm; Resp 19bpm; Pulse Ox 99% RA; ca1 ca1
[2020-04-06] MEDS ORDERED: Levofloxacin500mg IV 500 MG/100 ML BAG IV ONE (21:11)
[2020-04-07 01:00] VITALS: TEMP 97.5
[2020-04-07 01:10] VITALS: BP 164/74; O2SAT 99
--- NOTE | 2020-04-08 05:59 | EKG ---
Test Date: 2020-04-06 Test Time: 17:30:38 [place]uster: LETICIA MEASUREMENT RESULTS: Intervals: Rate: 60 WY: 142 QRSD: 68 QT: 476 QTc: 476 [place]: P: 33 WY: 142 QRS: 16 T: 127 INTERPRETIVE STATEMENTS: Sinus rhythm with premature atrial complexes Anterior infarct, age undetermined T wave abnormality, consider lateral ischemia Abnormal ECG Compared to ECG 03/25/2020 02:33:24 Atrial premature complex(es) now present T-wave abnormality now present Possible ischemia now present Myocardial infarct finding still present Electronically Signed On 04-08-20 05:56:13 CDT by Bam Terry
--- OUTSIDE RECORDS SUMMARY | 2020-04-09 08:52 | XMS REPORT | Clinical Summary ---
:1960 Author Organization [facility] Address [address] [place] [address] Care Team Providers Name Role Phone Jacob Burrows Unavailable Maru Louie MD Primary Care Provider Allergies No Known Allergies Medications Medication Sig Dispensed Refills Start Date End Date Status hydrOXYzine Take 50 mg by 0 04/07/20 Disc ontinued (VISTARIL) 50 MG mouth 3 (three) 20 capsule times daily as needed for Anxiety. ARIPiprazole Take 15 mg by 0 Ольга pended (ABILIFY) 10 MG mouth daily . tablet omeprazole Take 40 mg by 0 Suspe nded (PRILOSEC) 20 MG mouth daily . capsule sertraline Take 50 mg by 0 Suspe nded (ZOLOFT) 50 MG mouth daily. tablet senna-docusate Take 1 tablet by 30 tablet 0 02/01/2016 Suspended (SENOKOT S) 8.6-50 mouth nightly. mg per tablet ertapenem (INVanz) Inject 0.5 g 0 02/05/2016 Suspended IVPB intravenously daily. acetaminophen Take 650 mg by 0 S uspended (TYLENOL) 325 MG mouth every 4 tablet (four) hours as needed for Pain. LORazepam (ATIVAN) Take 1 mg by mouth 0 Suspended 1 MG tablet every 6 (six) hours as needed for Anxiety. cloNIDine HCl Take 0.2 mg by 0 S uspended (CATAPRES) 0.1 MG mouth daily . tablet acetaminophen-code Take 1 tablet by 0 Suspended ine (TYLENOL #3) mouth every 4 300-30 mg per (four) hours as tablet needed for Pain. isosorbide Take 30 mg by 0 Suspe nded dinitrate mouth daily . (ISORDIL) 10 MG tablet carvediloL (COREG) Take 12.5 mg by 0 Suspended 12.5 MG tablet mouth 2 (two) times daily with breakfast and dinner. ramipriL (ALTACE) Take 5 mg by mouth 0 Suspended 5 MG capsule daily. predniSONE Take 10 mg by 0 Suspe nded (DELTASONE) 10 MG mouth 2 (two) tablet times daily. aspirin 81 MG EC Take 81 mg by 0 Suspended tablet mouth daily. Active Problems Problem Noted Date Shortness of breath 04/07/2020 Leucocytosis 04/07/2020 COPD (chronic obstructive pulmonary disease) 0 Atrial myxoma 02/06/2016 ESRD on dialysis 02/06/2016 Hyponatremia 02/06/2016 Metabolic bone disease 02/06/2016 Hypertension 02/06/2016 Catheter-related bloodstream infection (CRBSI) 016 Infective endocarditis 02/06/2016 Anemia of chronic disease 02/06/2016 Depression 02/06/2016 Bacteremia 01/16/2016 Encounters Date Type Specialty Care Team Description 04/07/2020 Hospital Encounter Cardiology Malathi Gibbons E SRD on dialysis ([facility]) (Primary Dx); COPD exacerbation ([facility]); Maty Otero Shortness of breath; MD Sahil Essential hypertension; Sandra Lorenzana Acute on ronic diastolic heart failure ([facility]) MD Maria Fernanda 04/07/2020 Travel after 04/08/2019 Family History Medical History Relation Name Comments Heart disease Mother Relation Name Status Comments Mother Social History Tobacco Use Types Packs/Day Years Used Date Current Some Day Smoker 0.5 20 Smokeless Tobacco: Former User Tobacco Cessation: Ready to Quit: No; Co unseling Given: No Alcohol Use Drinks/Week oz/Week Comments No Sex Assigned at Date Recorded Not on file Job Start Date Occupation Industry Not on file Not on file Not on file Travel History Travel Start Travel End No recent travel history available. Last Filed Vital Signs Vital Sign Reading Time Taken Blood Pressure 142/67 04/09/2020 7:00 AM CDT Pulse 54 04/09/2020 7:00 AM CDT Temperature 36.2 C (97.1 F) 04/09/2020 7:00 AM CDT Respiratory Rate 18 04/09/2020 7:00 AM CDT Oxygen Saturation 97% 04/09/2020 7:00 AM CDT Inhaled Oxygen Concentration - - Weight 77.8 kg (171 lb 8.3 oz) 04/07/2020 1:50 AM CDT Height 152.4 cm (5') 04/07/2020 1:50 AM CDT Body Mass Index 33.5 04/07/2020 1:50 AM CDT Plan of Treatment Date Type Specialty Care Team Description 04/17/2020 Video - Telemedicine Cardiology Tamie Trammell i, HOUSING MANAGEMENT REPRESENTATIVE [address] [facility] [place], [place] [address] Health Maintenance Due Date Last Done Comments BREAST CANCER SCREENING 1960 COLON CANCER SCREENING COLONOSCOPY 1960 PNEUMOCOCCAL VACCINE 2-64 YEARS AT RISK (1 of 1 - 1965 PPSV23) CERVICAL CANCER SCREENING PAP ONLY (Age 21-65) 1980 LIPID PANEL 2004 MEDICARE ANNUAL WELLNESS (YEAR 2 or FIRST YEAR if no 10/02/2012 IPPE) INFLUENZA VACCINE (#1) 2020 Implants Implanted Type Area Commissions Manager Device Shelf Model / Identifier Expiration Serial / Lot Date Grft Hemshld Dbl Jarrod 2.0x6.0in [id number] - [id number] Graft/Pat GETINGE 01/30/2019 [id number] / Implanted: Qty: 1 on 01/25/2016 by Sherif Bañuelos MD c h IND:MALOBITOT:CV / [id number] Procedures The patient is currently admitted. The information in this section might not be complete until the patient is discharged. Procedure Name Priority Date/Time Associated Comments Diagnosis CBC W/PLT COUNT & Routine 04/09/2020 4:34 Result s for this AUTO DIFFERENTIAL AM CDT procedure are in the results section. PHOSPHORUS Routine 04/09/2020 4:34 Results for this AM CDT procedure are i n the results section. MAGNESIUM Routine 04/09/2020 4:34 Results for this AM CDT procedure are i n the results section. BASIC METABOLIC PANEL Routine 04/09/2020 4:34 Re sults for this (7) AM CDT procedure are i n the results section. CBC W/PLT COUNT & Routine 04/09/2020 4:34 Result s for this AUTO DIFFERENTIAL AM CDT procedure are in the results section. HEMODIALYSIS Routine 04/08/2020 12:00 Results for this INPATIENT AM CDT procedure are i n the results section. XR CHEST 1 VIEW IDRIS 04/07/2020 4:54 Results for this PORTABLE/BEDSIDE PM CDT procedure a re in the results section. 2D ECHO W/ DOPPLER Routine 04/07/2020 12:16 Resul ts for this (CW/PW/COLOR) PM CDT procedure are in the results section. HEPATITIS B SURFACE Routine 04/07/2020 11:44 Resu lts for this ANTIGEN AM CDT procedure are i n the results section. CBC W/PLT COUNT & Routine 04/07/2020 5:11 Result s for this AUTO DIFFERENTIAL AM CDT procedure are in the results section. B-TYPE NATRIURETIC Routine 04/07/2020 5:11 Resul ts for this FACTOR (BNP) AM CDT procedure are i n the results section. CBC W/PLT COUNT & Routine 04/07/2020 5:11 Result s for this AUTO DIFFERENTIAL AM CDT procedure are in the results section. PHOSPHORUS Routine 04/07/2020 5:11 Results for this AM CDT procedure are i n the results section. MAGNESIUM Routine 04/07/2020 5:11 Results for this AM CDT procedure are i n the results section. BASIC METABOLIC PANEL Routine 04/07/2020 5:11 Re sults for this (7) AM CDT procedure are i n the results section. after 04/08/2019 Results CBC with platelet count + automated diff (04/09/2020 4:34 AM CDT)Only the most recent of2 resultswithin the time period is included. WBC 9.5 3.5 - 10.5 K/L [facility] [place] RBC 3.28 (L) 3.93 - 5.22 M/L [facility] Hemoglobin 9.1 (L) 11.2 - 15.7 GM/DL [facility] Hematocrit 29.1 (L) 34.1 - 44.9 % [facility] MCV 88.7 79.4 - 94.8 fL [facility] MCH 27.7 25.6 - 32.2 pg [facility] MCHC 31.3 (L) 32.2 - 35.5 GM/DL [facility] RDW 13.7 11.7 - 14.4 % [facility] Platelets 156 150 - 450 K/CU MM [facility] MPV 11.4 9.4 - 12.3 fL [facility] nRBC 0 0 - 0 /100 WBC [facility] % Neutros 88 % [facility] % Lymphs 4 % [facility] % Monos 7 % [facility] % Eos 0 % [facility] % Baso 0 % [facility] # Neutros 8.33 (H) 1.56 - 6.13 K/L [facility] # Lymphs 0.35 (L) 1.18 - 3.74 K/L [facility] # Monos 0.70 (H) 0.24 - 0.36 K/L [facility] # Eos 0.00 (L) 0.04 - 0.36 K/L [facility] # Baso 0.00 (L) 0.01 - 0.08 K/L [facility] Immature Granulocytes-Relative 1 0 - 1 % [facility] Specimen Blood Performing Organization Address City/[facility]/Zipcode Phone Number [address] [address] CENTER Phosphorus (04/09/2020 4:34 AM CDT)Only the most recent of2 resultswithin the time period is included. Phosphorus 5.4 (H) 2.3 - 4.7 mg/dL [facility] Specimen Blood Narrative Performed At Job Press Feeder OLE Fisher [facility] Performing Organization Address City/[facility]/Zipcode Phone Number [address] [phone] [place] Magnesium (04/09/2020 4:34 AM CDT)Only the most recent of2 resultswithin the time period is included. Magnesium 1.8 1.6 - 2.6 mg/dL [facility] Specimen Blood Narrative Performed At Job Press Feeder ID - CYNTHIA Fisher [facility] Performing Organization Address [facility] Phone Number [address] [phone] [place] Basic Metabolic Panel (04/09/2020 4:34 AM CDT)Only the most recent of2 results within the time period is included. Sodium 133 (L) 136 - 145 meq/L [facility] Potassium 5.7 (H) 3.5 - 5.1 meq/L [facility] Chloride 97 (L) 98 - 107 meq/L [facility] CO2 23 22 - 29 meq/L [facility] BUN 54 (H) 7 - 21 mg/dL [facility] Creatinine 6.23 (H) 0.57 - 1.25 mg/dL [facility] Glucose 133 (H) 70 - 105 mg/dL [facility] Calcium 7.0 (L) 8.4 - 10.2 mg/dL [facility] [place] EGFR 8Comment: ESTIMATED GFR IS mL/min/1.73 sq m [facility] NOT ACCURATE CREATININE [facility] CLEARANCE IN PREDICTING GLOMERULAR FILTRATION RATE. ESTIMATED GFR IS NOT APPLICABLE FOR DIALYSIS PATIENTS. Specimen Blood Narrative Performed At Job Press Feeder ID - CYNTHIA Fisher [facility] Performing Organization Address City/[facility] Phone Number [address] [phone] CENTER HEMODIALYSIS INPATIENT (04/08/2020 12:00 AM CDT) Narrative Performed At Greer Figueroa RN 04/08/2020 12:00 AM Lab Results Component Value Date HEPBSAG Nonreactive 04/07/2020 ] Lab Results Component Value Date GLUCOSE 199 (H) 04/07/2020 CALCIUM 7.1 (L) 04/07/2020 NA 132 (L) 04/07/2020 K 4.5 04/07/2020 CO2 19 (L) 04/07/2020 CL 99 04/07/2020 BUN 74 (H) 04/07/2020 CREATININE 7.98 (H) 04/07/2020 Lab Results Component Value Date WBC 13.9 (H) 04/07/2020 HGB 8.8 (L) 04/07/2020 HCT 27.8 (L) 04/07/2020 MCV 87.7 04/07/2020 PLT 149 (L) 04/07/2020 Verified order and secured HD consent. Verified patient's identification, full name, MRN and date of . HD treatment completed for 4 hours via l eft AVF (+) bruit and thrill. Net UF of 3L. Patient stable and no complaints made. Endorsed to nurse accordingly. XR chest 1 view portable / bedside (04/07/2020 4:54 PM CDT) Specimen Narrative Performed At FINAL REPORT GE RIS EXAM: Chest one view COMPARISON: January 27, 2016 CLINICAL HISTORY: Dyspnea FINDINGS: There is interval removal of t he left internal jugular tunneled dialysis catheter. The cardiac size is mildly prominent. There is no evidence of pulmonary consol idation, pleural effusion, or pneumothorax. The regional osseous struc tures are unremarkable. Signed: Riccardo Jacobsen MD Report Verified Date/Time:04/07/2020 17:24:41 Reading Location: [facility] [id number] [facility] Procedure Note Interface, External Ris In - 04/07/2020 5:26 PM CDT FINAL REPORT EXAM: Chest one view COMPARISON: January 27, 2016 CLINICAL HISTORY: Dyspnea FINDINGS: There is interval removal of t he left internal jugular tunneled dialysis catheter. The cardiac size is mildly prominent. There is no evidence of pulmonary consol idation, pleural effusion, or pneumothorax. The regional osseous struc tures are unremarkable. Signed: Riccardo Jacobsen MD Report Verified Date/Time: 04/07/2020 1 7:24:41 Reading Location: [facility] C013 Consult R [facility] Room Performing Organization Address City/State/Zipcode Phone Number [facility] 2D Echo W/Doppler(CW/PW/Color) (04/07/2020 12:16 PM CDT) Ejection Fraction [facility] ECHO HEAR TLAB [facility] Specimen Narrative Performed At Transthoracic Echocardiography Report (T TE) [facility] ECHO HEARTLAB [facility] Demographics Patient NameRHODES, NANDO Date of Study 04/07/2020 HALIMA Female Visit [id number] Unknown Room Number 1062 Number Date of 1960Referring Malathi Gibbons Physician Age 59 year(s)Rn Patient Services ALEXANDRO Reynolds, RDCS,RVT,RDMS InterpretingRonteetee Egan MD Physician Procedure Type of Study TTE procedure:2DECHO W DOPPLER(CW/PW/COLOR) (Routine) Indications:Shortness of breath. Clinical History ESRD;CHF;HTN;COPD;SA. Height: 60 inches Weight: 77.56 kg (171 lbs) BSA: 1.75 m^2 BMI: 33.4 kg/m^2 HR: 51 bpm BP: 157/74 mmHg Summary 1. The left ventricle is chamber size (by vol index) is normal with no evidence of LV hypertrophy. LVEF by Martell's method of disk assessment is increased (>70%) . Grade 2 diastolic dysfunction (moderately increased LA pressure). 2. The right ventricular chamber size and systolic function are within normal limits. 3. LA size is moderately enlarged . 4. No significant valvular abnormality. 5. Estimated peak systolic PA pressure is 40-45 mmHg (mild pulmonary hypertension) . Previous Study No prior TTE exam available for compari son. Signature Findings Left Ventricle The left ventricle is chamber size (by vol index) is normal. No evidence of LV hypertrophy. Al l of the LV segments contract normally . LV EF by Martell's method of disk assessmen t is in creased (>70%) . Gr romero 2 diastolic dysfunction (moderately increased LA pressure). Left AtriumLA size is moderately enlarged . Right VentricleThe right ventricular chamber size and systolic fu nction are within normal limits. Right Atrium RA size is normal. Aortic Valve Normal tri-leaflet Aortic Valve. Mitral Valve Mild MV leaflet thickening. Tr jaimie mitral regurgitation. Tricuspid ValveNormal TV structure and function by available view s an d Doppler. Mi ld tricuspid regurgitation. Es timated peak systolic PA pressure is 40- 45 mmHg (m ild pulmonary hypertension) . Pulmonic Valve Normal PV structure and function by limited views an d Doppler. Mi ld pulmonary regurgitation. AortaAortic root size (SInus of Valsalva diameter) i s no rmal . Pr oximal ascending aorta size is normal . PericardiumNo significant pericardial effusion is visualized. IVC/SVC/PA/PV/PleuralThe estimated RA pressure by IVC dynamics 5-10mmHg . Chambers/Structures Left Atrium LA Volume: 77.18 ml LA Area: 25.18 cm^2 LA Vol. Index: 44 ml/m^2 Left Ventricle LVIDd: 4.86 cm LVEDV:110.65 ml LV Septum Diastolic: 1.01 cm LV PW Diastolic: 0.85 cm LVEDV Martell's:72.55 ml LV Length: 8.27 cm LVESV Martell's:16.32 ml LVEF Martell's: 77.5 % LVEDVI: 41 ml/m^2 LVES : 9 ml/m^2 LVOT Diameter: 1.67 cm Right Atrium RA Area: 16 .42 cm^2 Right Ventricle RV Diast Dim.: 4.07 cm TAPS E: 2.34 cm Aorta Ao Root S of Maribeth.: 2.85 cmAscending Aorta: 3.32 cm Doppler/Quantitative Measurements Mitral Valve MV Peak E-Wave: 1.56 m/sMV Peak A-Wave: 0.55 m/s E/A Ratio: 2. 84 Peak Gradient: 9.71 mmHg Deceleration Time: 275.9 msec MV Jarrod. Peak: Tissue Doppler E' Septal Velocity: 0.05 m/sE/E': 21.63 E' Lateral Velocity: 0.07 m/s Aortic Valve Peak Velocity: 1.53 m/sMean Velocity: 0.94 m/s Peak Gradient: 9.32 mmHg Mean Gradient: 4.21 mmHg AV Area (continuity): 1.63 cm^2 AV VTI: 36.11 cm AV DVI: 0.74 LVOT Peak Velocity: 1.02 m/s Peak Gradient: 4.17 mmHg Mean Velocity: 0.75 m/s Mean Gradient: 2.51 mmHg LVOT Diameter: 1.67 cmLVOT VTI: 26.83 cm LVOT Area: 2.19 cm^2LVOT SV:58.74 ml LVOT CO: 3 l/minLVOT CI: 1.71 l/min/m^2 Tricuspid Valve TR Velocity: 3.01 m/s TR Gradient: 36.29 mmHg Procedure Note Interface, External Ris In - 04/07/2020 2:26 PM CDT Transthoracic Echocardiography Report (TTE) Demographics Patient Name NANDO TO Date of S ena 04/07/2020 HALIMA Gender Female Visit Number [id number] Race Unknown Room Numb er 1062 Number Date of 1960 Referring Malathi Gibbons Physician Age 59 year(s) Sonograph er Payton Lopes, NB, RDCS,RVT,RDMS Interpret ing Michael Egan MD Physician Procedure Type of Study TTE procedure:2DECHO W DOPPLE R(CW/PW/COLOR) (Routine) Indications:Shortness of breath. Clinical History ESRD;CHF;HTN;COPD;SA. Height: 60 inches Weight: 77.56 kg (171 lbs) BSA: 1.75 m^2 BMI: 33.4 kg/m^2 HR: 51 bpm BP: 157/74 mmHg Summary 1. The left ventricle is chamber size ( by vol index) is normal with no evidence of LV hypertrophy. LVEF by Martell's method of disk assess ment is increased (>70%) . Grade 2 diastolic dysfunction (moderate ly increased LA pressure). 2. The right ventricular chamber size a nd systolic function are within normal limits. 3. LA size is moderately enlarged . 4. No significant valvular abnormality. 5. Estimated peak systolic PA pressure is 40-45 mmHg (mild pulmonary hypertension) . Previous Study No prior TTE exam available for compari son. Signature Findings Left Ventricle The left ventric le is chamber size (by vol index) is normal. No evidence of L V hypertrophy. All of the LV se gments contract normally . LVEF by Martell' s method of disk assessment is increased (>70%) . Grade 2 diastoli c dysfunction (moderately increased LA pressure). Left Atrium LA size is moder ately enlarged . Right Ventricle The right ventri cular chamber size and systolic function are wit hin normal limits. Right Atrium RA size is jeanna l. Aortic Valve Normal tri-leafl et Aortic Valve. Mitral Valve Mild MV leaflet thickening. Trace mitral reg urgitation. Tricuspid Valve Normal TV struct ure and function by available views and Doppler. Mild tricuspid r egurgitation. Estimated peak s ystolic PA pressure is 40-45 mmHg (mild pulmonary hypertension) . Pulmonic Valve Normal PV struct ure and function by limited views and Doppler. Mild pulmonary r egurgitation. Aorta Aortic root size (SInus of Valsalva diameter) is normal . Proximal ascendi ng aorta size is normal . Pericardium No significant p ericardial effusion is visualized. IVC/SVC/PA/PV/Pleural The estimated RA pressure by IVC dynamics 5-10mmHg . Chambers/Structures Left Atrium LA Volume: 77.18 ml LA Area: 25.18 cm^2 LA Vol. Index: 44 ml/m^2 Left Ventricle LVIDd: 4.86 cm LVEDV:110.65 ml LV Septum Diastolic: 1.01 cm LV PW Diastolic: 0.85 cm LVEDV Martell's:72.55 ml LV Length: 8.27 cm LVESV Martell's:16.32 ml LVEF Martell's: 77.5 % LVEDVI: 41 ml/m^2 LVESVI: 9 ml/m^2 LVOT Diameter: 1.67 cm Right Atrium RA Area: 16.42 cm^2 Right Ventricle RV Diast Dim.: 4.07 cm TAPSE: 2.34 cm Aorta Ao Root S of Maribeth.: 2.85 cm Ascending Aorta: 3.32 cm Doppler/Quantitative Measurements Mitral Valve MV Peak E-Wave: 1.56 m/s M V Peak A-Wave: 0.55 m/s E /A Ratio: 2.84 P eak Gradient: 9.71 mmHg D eceleration Time: 275.9 msec MV Jarrod. Peak: Tissue Doppler E' Septal Velocity: 0.05 m/s E /E': 21.63 E' Lateral Velocity: 0.07 m/s Aortic Valve Peak Velocity: 1.53 m/s Mean Velocity: 0.94 m/s Peak Gradient: 9.32 mmHg Mean Gradient: 4.21 mmHg AV Area (continuity): 1.63 cm^2 AV VTI: 36.11 cm AV DVI: 0.74 LVOT Peak Velocity: 1.02 m/s Pea k Gradient: 4.17 mmHg Mean Velocity: 0.75 m/s Cheryl n Gradient: 2.51 mmHg LVOT Diameter: 1.67 cm LVO T VTI: 26.83 cm LVOT Area: 2.19 cm^2 LVO T SV:58.74 ml LVOT CO: 3 l/min LVO T CI: 1.71 l/min/m^2 Tricuspid Valve TR Velocity: 3.01 m/s TR Gradient: 36.29 mmHg Performing Organization Address City/State/Zipcode Phone Number [facility] ECHO HEARTLAB [facility] Hepatitis B surface antigen (04/07/2020 11:44 AM CDT) HBsAg Screen Nonreactive Nonreactive [facility] Specimen Blood Narrative Performed At Specimen is considered negative for HBsAg. [facility] Performing Organization Address City/State/Zipcode Phone Number [address] [phone] CENTER B-type Natriuretic Factor (BNP) (04/07/2020 5:11 AM CDT) BNP 777 (H) 0 - 100 pg/mL [facility] Specimen Blood Narrative Performed At Job Press Feeder ID - RENETTA L [facility] Performing Organization Address City/State/Zipcode Phone Number [facility] [address] [place] [phone] CENTER after 04/08/2019 Insurance Payer Benefit Plan / Group Subscriber ID Type Phone A ddress MEDICARE MEDICARE A B xxxxxxxxxxx Medicare [employer] MEDICARE [employer] [place] xxxxxxxxx [facility] CARE MEDICAID - MEDICAID MEDICAID [employer] xxxxxxxxx Medicaid MGD CARE Non-Contracted MEDICAID MEDICAID [place] xxxxxxxxx Medicaid Advance Directives For more information, please contact:[address] [phone] Code Status Date Activated Date Inactivated Comments Full Code 04/07/2020 3:49 AM This code status was determined by: Patient Full Code 01/23/2016 1:38 PM 02/06/2016 8:06 PM This code status was determined by: Patient Full Code 01/18/2016 10:03 AM 01/18/2016 10:53 AM This code status was determined by: Patient Full Code 01/16/2016 3:39 AM 01/18/2016 10:03 AM This code status was determined by: Patient
--- OUTSIDE RECORDS SUMMARY | 2020-04-09 08:54 | XMS REPORT | Continuity of Care Document ---
:1960 Author Organization General Fusion Care Team Providers Name Role Phone [facility] Unavailable Un available Problems Problem Status Onset Classification Date Comments Sourc e Date Reported Hypertensive heart 07/12/19 01/17/2019 [facility] and chronic kidney 19 edical disease with heart C enter failure and with stage 5 chronic kidney disease, or end stage renal disease KIDNEY FAILURE Active 06/24/20 Tucker forrester [address] [place] [address] ISCHEMIC STROKE Active 01/09/[address] NUMBNESS Active 01/09/[address] Methicillin Active 06/11/20 Problem 01/17/2019 06/11/09 Nares- MRSA by PCR [facility] resistant 09 Problem added by Dis cern Expert. Medical Staphylococcus Terri nava, aureus (organism) [facility] Cerebral 01/13/2017 infarction, [facility] End stage renal 01/17/2019 [facility] Chronic diastolic 01/17/2019 [facility] Porsche (congestive) heart edical failure Center Acidosis 01/17/2019 [facility] Unspecified 01/17/2019 Madelaine king protein-calorie Medi shreya malnutrition Center Cocaine use, 01/17/2019 Niels as unspecified, Medical uncomplicated Center Patient's 01/17/2019 [facility] noncompliance with edical other medical Center treatment and regimen Nicotine 01/17/2019 [facility] dependence, Medical cigarettes, Center uncomplicated Bipolar disorder, 01/17/2019 [facility] unspecified Medical Center Chronic 01/17/2019 [facility] obstructive Medical pulmonary disease, C enter unspecified Chronic viral 01/17/2019 Tucker forrester hepatitis C [facility] Center Hyperkalemia 01/17/2019 [facility] as Medical Center Hypertensive 01/17/2019 [place]iels as urgency Medical Center Anemia in chronic 01/17/2019 [facility] kidney disease Medic al Center Patient's 01/17/2019 [facility] noncompliance with edical renal dialysis Terri nava Vascular dementia 01/17/2019 [facility] without behavioral edical disturbance Center Dementia in other 01/17/2019 [facility] diseases Medical classified Center elsewhere without behavioral disturbance Hepatic failure, 01/17/2019 [facility] unspecified Medical without coma Center 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 Bipolar disorder Resolved Problem 01/17/2019 [facility] (disorder) Medical [place],[facility] Chronic kidney Resolved Problem 01/17/2019 [place] disease (disorder) M edical Center,[facility] Chronic Resolved Problem 01/17/2019 [facility] obstructive lung Med ical disease (disorder) C enter,[facility] Cerebrovascular Resolved Problem 01/17/2019 [facility] accident Medical (disorder) Center,[facility] Dialysis finding Resolved Problem 01/17/2019 started [facility] (finding) approx Medical 2014 Center,[facility] Disease of Resolved Problem 01/17/2019 [facility] gallbladder Medical (disorder) Center,[facility] Acute myocardial Resolved Problem 01/17/2019 [facility] infarction Medical (disorder) Center,[facility] Viral hepatitis C Resolved Problem 01/17/2019 [facility] (disorder) Medical [place],[facility] Hypertensive Resolved Problem 01/17/2019 [place] disorder, systemic edical arterial Center, (disorder) [facility] Simple obesity Active Problem 01/17/2019 [facility] [place] (disorder) Medical [place],[facility] Smoker (finding) Resolved Problem 01/17/2019 [facility] CEREBRAL Active INFARCTION, [facility] UNSPECIFIED [facility] ILLNESS, Active UNSPECIFIED [facility] Medications Medication Details Route Status [...] No Longer [place] as: Norvasc) Active [address] [place] [address] Insulin regular 60 units) Inactive [place] WASTE: F/P - 2018 Medical Black; E - Center Municipal Trash Bin Stable for 28 days at room temperature Expires in days from D ate Glucagon 1 mg, Route: Inactive [place] IM, Drug form: 2018 Medical PDR/INJ, PRN, Center Dosing Weight 45.085, kg, PRN Blood Glucose Results, Start date: 06/25/18 6:22:00 ADMINISTRATOR OF HOME HEALTH, Duration: 30 day, Stop date: 07/25/18 6:21:00 ADMINISTRATOR OF HOME HEALTH Dextrose 50% 12.5 gm, 25 mL, Inactive [place] Syringe Route: IVP, 2017 Medical Drug Form: INJ, [place] Dosing Weight 45.085, kg, PRN, PRN Blood Glucose Results, Start date: 06/25/18 6:22:00 ADMINISTRATOR OF HOME HEALTH, Duration: 30 day, Stop date: 07/25/18 6:21:00 ADMINISTRATOR OF HOME HEALTH NIFEdipine 30 Notes: (Same Inactive [place] mg oral tablet, as: Adalat CC, 2017 edical extended Procardia XL) Center release Give on empty stomach. Take 1 hour before or 2 hours after meal; "Avoid grapefruit and grapefruit juice". Do not crush Saline Flush Notes: (Same No Longer [place] 0.9% as: BD Active [address] [place] [address] Posiflush) [place] sennosides, [facility] Notes: (Same No Longer H [place] as: Senokot) Active [address] [place] [address] NIFEdipine 30 Notes: (Same Inactive [place] mg oral tablet, as: Adalat CC, 2017 edical extended Procardia XL) Center release Give on empty stomach. Take 1 hour before or 2 hours after meal; "Avoid grapefruit and grapefruit juice". Do not crush Docusate Notes: (Same No Longer [place] as: Colace) Active [address] [place] [address] heparin sodium, Notes: porcine No Longer [place] porcine 2500 heparin Active 2017 [facility] UNT/ML [place] Injectable Solution Cardene 40 mg Notes: Same as: No Longer [place] in NS 200 mL Cardene Active 2017 Medical (Titrate.) IV Concentration: Francisco ter 40 mg (0.2 mg /1 ml ) sevelamer 800 mg = 1 tab, No Longer [place] carbonate 800 PO, 0 Refill(s) Active 2017 [place] MG Oral Tablet Center [Renvel] amLODIPine [...] [place] UNT/MG Topical as:Mycostatin, Active 2017 [place] Powder Nilstat) For Center external use only. atorvastatin Notes: (Same No Longer As: Lipitor) Active 2016 [facility] aspirin 81 mg 81 mg = 1 tab, Active tablet, enteric PO, Daily, # 30 2017 [facility] coated tab, 0 City Refill(s) atorvastatin 10 10 mg = 1 tab, Active H mg oral tablet PO, Bedtime, # 2017 [place] mor[place] 30 tab, 0 City Refill(s) heparin Notes: porcine No Longer heparin Active 2016 [facility] gabapentin 100 Notes: (Same No Longer MG Oral Capsule as: Neurontin) Active 2016 [facility] Saline Flush 10 ml, Route: Inactive 0.9% IVP, Drug Form: [address] [place] [address] INJ, Dosing City Weight 76.007, kg, Q12H, Start date: 01/08/17 21:00:00 CDT, Duration: 30 day, Stop date: 02/07/17 9:00:00 CDT Hydroxyzine Notes: (Same No Longer as: Atarax) Active [address] [place] [address] Avoid alcohol. [facility] ARIPiprazole Notes: No Longer Non-Formulary Active [address] [place] [address] Drug. (Same City as: Abilify) Amlodipine Notes: (Same No Longer as: Norvasc) Active 2016 [facility] Sertraline Notes: (Same No Longer as: Zoloft) Active 2016 [facility] Clonidine Notes: (Same No Longer Hydrochloride As: Catapres) Active 2016 [place] rial 0.2 MG Oral [facility] Tablet 200 ACTUAT Notes: SEE RT No Longer Albuterol 0.09 DOCUMENTATION Active 2016 Mem orial MG/ACTUAT (Same as: [facility] Metered Dose Proventil) Inhaler [ProAir HFA] Hydralazine Notes: (Same No Longer as: Apresoline) Active 2016 [facility] Push over 5 [facility] minutes Clonidine 0.1 mg = 0.5 Active Hydrochloride tab, PO, TID, 0 2016 [place] morial 0.2 MG Oral Refill(s) [facility] Tablet ARIPiprazole 10 10 mg = 1 tab, Active H mg oral tablet PO, Daily, # 30 2016 [facility] tab, 0 [facility] Refill(s) Amlodipine 10 mg, PO, Active Daily, 0 2016 [facility] Refill(s) [facility] sertraline 50 50 mg = 1 tab, Active mg oral tablet PO, Daily, 0 2016 [place] rial Refill(s) [facility] gabapentin 100 300 mg = 3 cap, Active H MG Oral Capsule PO, Bedtime, 0 2016 [facility] Refill(s) [facility] Hydroxyzine 50 mg, PO, TID, Active 0 Refill(s) 2016 [facility] Enoxaparin Notes: (Same No Longer as: Lovenox) Active 2016 [facility] aspirin 81 mg Notes: Do not No Longer tablet, enteric crush or chew. Active 2016 [facility] coated (Same As: [facility] Ecotrin) Famotidine Notes: (Same No Longer as: Pepcid) Active 2016 [facility] Sodium Chloride 25 mL, Route: No Longer 0.9% IV IVP, Start Active [address] [place] [address] date: 01/08/17 [facility] 16:48:00 CDT, Duration: 30 day, Stop date: 02/07/17 16:47:00 CDT, PRN Line Flush BD Normal Notes: (Same No Longer Saline Flush as: BD Active 2016 [facility] Posiflush) [facility] BD Normal Notes: (Same No Longer Saline Flush as: BD Active 2016 [facility] Posiflush) [facility] Saline Flush 10 ml, Route: Inactive 0.9% IVP, Drug Form: 2016 [facility] INJ, Dosing [facility] Weight 76.007, kg, PRN, PRN Line Flush, [...] Jimenez Madelaine king 13-valent vaccine 7 deltoid [facility] tetanus-diphtheri Right completed Katya [facility] a toxoids 9 [facility] Results Order Name Results Value Reference Date Interpretation Comments Rula rce Range CHEM PANEL Magnesium 2.2 1.8 - 2.4 06/30 [facility] CHEM PANEL Phosphorus 4.6 2.5 - 4.5 06/30 [facility]2017 [facility] CHEM PANEL eGFR 8 06/30 Result [...] PANEL ALT 15 0 - 65 06/[address] CHEM PANEL AST 14 0 - 37 06/[address] CHEM PANEL Globulin 3.8 2.7 - 4.2 06/[address] CHEM PANEL A/G Ratio 0.8 0.7 - 1.6 06/[address] CHEM PANEL Albumin Lvl 3.2 3.5 - 5.0 06/30 [facility] CHEM PANEL Total 7.0 6.4 - 8.4 06/30 [facility] Protein [facility] CHEM PANEL B/C Ratio 8 6 - 25 06/[address] CHEM PANEL Bili Total 0.5 0.2 - 1.3 06/[address] CHEM PANEL Alk Phos 130 39 - 136 06/[address] CHEM PANEL Glucose Lvl 88 70 - 99 06/[address] CHEM PANEL BUN 48 7 - 22 06/[address] CHEM PANEL Calcium Lvl 8.0 8.5 - 10.5 06/30 [facility] CHEM PANEL AGAP 13.5 10.0 - 06/30 [place] 20.0 [facility] CHEM PANEL Chloride Lvl 104 95 - 109 06/30 [facility] CHEM PANEL CO2 24 24 - 32 06/[address] CHEM PANEL Creatinine 5.89 0.50 - 06/30 [place] Lvl 1.40 [facility] CHEM PANEL Sodium Lvl 137 135 - 145 06/[address] CHEM PANEL Potassium 4.5 3.5 - 5.1 06/30 [place] Lvl /2017 [facility] HEMATOLOGY MCH 27.7 27.0 - 06/30 [place] 31.0 [facility] HEMATOLOGY Hct 28.3 36.0 - 06/30 [place] 48.0 [facility] HEMATOLOGY MCV 85.6 80.0 - 06/30 [place] 98.0 [facility] HEMATOLOGY MCHC 32.3 32.0 - 06/30 [place] 36.0 [facility] HEMATOLOGY RDW 16.0 11.5 - 06/30 [place] 14.5 /2017 [facility] HEMATOLOGY Platelet 141 133 - 450 06/30 [facility]2017 [facility] HEMATOLOGY MPV 8.5 7.4 - 10.4 06/30 [facility] /[address] [place] [address] HEMATOLOGY WBC 4.4 3.7 - 10.4 06/30 [facility] /2018 [facility] HEMATOLOGY RBC 3.31 4.20 - 06/30 [place] 5.40 [facility] HEMATOLOGY Hgb 9.2 12.0 - 06/30 [place] 16.0 [facility] HEMATOLOGY Monocytes # 0.9 0.0 - 0.8 06/30 [place] /2017 [facility] HEMATOLOGY Anisocyte 1+ None Seen 06/30 [facility] *ABN* /2017 [facility] (06/30/18 5:16 AM) Cente r HEMATOLOGY Eosinophils 0.1 0.0 - 0.5 06/30 [facility] # /2018 [facility] HEMATOLOGY Target Cell Slight 06/[address] HEMATOLOGY Monocytes 20.2 2.0 - 12.0 06/[address] HEMATOLOGY Basophils 0.9 0.0 - 1.0 06/[address] HEMATOLOGY Lymphocytes 32.1 20.0 - 06/30 [place] 40.0 [facility] HEMATOLOGY Eosinophils 1.2 0.0 - 4.0 06/30 [facility] s /[address] [place] [address] HEMATOLOGY Neutrophils 2.0 1.5 - 8.1 06/30 [facility] # /2018 [facility] HEMATOLOGY Lymphocytes 1.4 1.0 - 5.5 06/30 [facility] s # /[address] [place] [address] HEMATOLOGY Segs 45.6 45.0 - 06/30 [facility] 75.0 [facility] HEMATOLOGY Plt Morph Normal 06/30 [facility] (06/30/18 5:16 AM) /2017 [facility] Center ANEMIA Iron 61 30 - 160 06/29 [facility] STUDY /2018 [facility] ANEMIA TIBC 223 228 - 428 06/29 [facility] /[address] [place] [address] ANEMIA UIBC 162 110 - 370 06/29 [facility] /2017 [facility] ANEMIA % [place] 27 12 - 57 06/29 [facility] /[address] [place] [address] ANEMIA Ferritin Lvl 428 5 - 204 06/[address] CHEM PANEL Phosphorus 3.6 2.5 - 4.5 06/[address] CHEM PANEL Magnesium 2.2 1.8 - 2.4 06/29 [facility] /[address] [place] [address] CHEM PANEL Bili Total 0.5 0.2 - 1.3 06/29 [facility] CHEM PANEL Alk Phos 140 39 - 136 06/29 [facility] CHEM PANEL AST 13 0 - 37 06/29 [facility] CHEM PANEL ALT 14 0 - 65 06/29 [facility] CHEM PANEL eGFR 13 06/29 Result [...] Albumin Lvl 3.0 3.5 - 5.0 06/29 [facility] CHEM PANEL Total 7.1 6.4 - 8.4 06/29 [facility] CHEM PANEL Chloride Lvl 104 95 - 109 06/29 [facility] CHEM PANEL Calcium Lvl 7.6 8.5 - 10.5 06/29 [facility] CHEM PANEL CO2 25 24 - 32 06/29 [facility]2017 [facility] CHEM PANEL Potassium 4.2 3.5 - 5.1 06/29 [facility] CHEM PANEL Sodium Lvl 138 135 - 145 06/29 [facility]2017 [facility] CHEM PANEL Glucose Lvl 95 70 - 99 06/29 [facility]2017 [facility] CHEM PANEL BUN 30 7 - 22 06/29 [facility]2017 [facility] CHEM PANEL Creatinine 4.15 0.50 - 06/29 [facility] 1.40 [facility] CHEM PANEL AGAP 13.2 10.0 - 06/29 [place] 20.0 [facility] CHEM PANEL A/G Ratio 0.7 0.7 - 1.6 06/[address] CHEM PANEL Globulin 4.1 2.7 - 4.2 06/[address] CHEM PANEL B/C Ratio 7 6 - 25 06/[address] HEMATOLOGY MPV 8.2 7.4 - 10.4 06/[address] HEMATOLOGY RDW 16.5 11.5 - 06/29 [place] 14.5 [facility] HEMATOLOGY Platelet 131 133 - 450 06/[address] HEMATOLOGY MCV 85.3 80.0 - 06/29 [facility] 98.0 [facility] HEMATOLOGY MCH 27.9 27.0 - 06/29 [place] 31.0 [facility] HEMATOLOGY MCHC 32.7 32.0 - 06/29 [facility] 36.0 /2017 [facility] HEMATOLOGY RBC 3.40 4.20 - 06/29 [place] 5.40 /2017 [facility] HEMATOLOGY Hgb 9.5 12.0 - 06/29 [place] 16.0 [facility] HEMATOLOGY WBC 5.3 3.7 - 10.4 06/[address] HEMATOLOGY Hct 29.0 36.0 - 06/29 [place] 48.0 [facility] HEMATOLOGY Retic Auto 1.6 0.5 - 1.5 06/29 [facility]2017 [facility] HEMATOLOGY Monocytes 20.2 2.0 - 12.0 06/[address] HEMATOLOGY Segs 50.7 45.0 - 06/29 [place] 75.0 [facility] HEMATOLOGY Lymphocytes 27.3 20.0 - 06/29 [place] 40.0 [facility] HEMATOLOGY Monocytes # 1.1 0.0 - 0.8 06/29 [place] /2018 [facility] HEMATOLOGY Eosinophils 0.1 0.0 - 0.5 06/29 [place] # /2017 [facility] HEMATOLOGY Basophils 0.7 0.0 - 1.0 06/[address] HEMATOLOGY Neutrophils 2.7 1.5 - 8.1 06/29 [place] # /2018 [facility] HEMATOLOGY Eosinophils 1.1 0.0 - 4.0 06/29 [place] /2018 [facility] HEMATOLOGY Lymphocytes 1.5 1.0 - 5.5 06/29 [place] [facility] CHEM PANEL Magnesium 2.2 1.8 - 2.4 06/28 [facility] CHEM PANEL Phosphorus 4.1 2.5 - 4.5 06/28 [facility]2017 [facility] CHEM PANEL eGFR 6 06/28 Result [...] PANEL CO2 25 24 - 32 06/28 [facility] CHEM PANEL Glucose Lvl 94 70 - 99 06/28 [facility]2017 [facility] CHEM PANEL BUN 49 7 - 22 06/[address] CHEM PANEL Potassium 4.3 3.5 - 5.1 06/28 [facility] CHEM PANEL Creatinine 7.38 0.50 - 06/28 [facility] Lvl 1.40 [facility] CHEM PANEL Sodium Lvl 136 135 - 145 06/28 [facility]2017 [facility] CHEM PANEL Chloride Lvl 103 95 - 109 06/28 [place] [facility] CHEM PANEL Albumin Lvl 3.1 3.5 - 5.0 06/28 [place] [facility] CHEM PANEL Calcium Lvl 7.6 8.5 - 10.5 06/28 [place] [facility] CHEM PANEL Total 6.9 6.4 - 8.4 06/28 [facility] CHEM PANEL AST 13 0 - 37 06/[address] CHEM PANEL Alk Phos 125 39 - 136 06/[address] CHEM PANEL ALT 11 0 - 65 06/28 [facility] CHEM PANEL Bili Total 0.5 0.2 - 1.3 06/28 [facility] CHEM PANEL Globulin 3.8 2.7 - 4.2 06/28 2017 [facility] CHEM PANEL B/C Ratio 7 6 - 25 06/28 2017 [facility] CHEM PANEL A/G Ratio 0.8 0.7 - 1.6 06/28 2017 [facility] CHEM PANEL AGAP 12.3 10.0 - 06/28 [place] 20.0 [facility] HEMATOLOGY MPV 8.5 7.4 - 10.4 06/28 [facility] HEMATOLOGY Platelet 145 133 - 450 06/28 [facility] HEMATOLOGY RDW 16.0 11.5 - 06/28 [place] 14.5 [facility] HEMATOLOGY MCHC 31.5 32.0 - 06/28 [place] 36.0 [facility] HEMATOLOGY MCH 26.9 27.0 - 06/28 [place] 31.0 [facility] HEMATOLOGY MCV 85.6 80.0 - 06/28 [place] 98.0 [facility] HEMATOLOGY Hct 29.4 36.0 - 06/28 [place] 48.0 [facility] HEMATOLOGY RBC 3.43 4.20 - 06/28 [place] 5.40 [facility] HEMATOLOGY WBC 5.1 3.7 - 10.4 06/28 /2017 [facility] HEMATOLOGY Hgb 9.2 12.0 - 06/28 [place] 16.0 2018 [facility] HEMATOLOGY Basophils # 0.1 0.0 - 0.2 06/28 [place] /2017 [facility] HEMATOLOGY Eosinophils 0.1 0.0 - 0.5 06/28 [place] # /2017 [facility] HEMATOLOGY Monocytes # 0.9 0.0 - 0.8 06/28 [place] /2018 [facility] HEMATOLOGY Monocytes 17.7 2.0 - 12.0 06/28 [place] [facility] HEMATOLOGY Segs 52.2 45.0 - 06/28 [place] 75.0 [facility] HEMATOLOGY Lymphocytes 27.8 20.0 - 06/28 [place] 40.0 /2018 [facility] HEMATOLOGY Lymphocytes 1.4 1.0 - 5.5 06/28 [place] # /2017 [facility] HEMATOLOGY Neutrophils 2.7 1.5 - 8.1 06/28 [place] # /2017 [facility] HEMATOLOGY Basophils 1.0 0.0 - 1.0 06/28 [facility] HEMATOLOGY Eosinophils 1.3 0.0 - 4.0 06/28 [facility] /2017 [facility] AMINO ACID MMA Qnt 589 0 - 378 06/27 [facility] /[address] [place] [address] AMINO ACID Homocyst Tot 40.6 0.0 - 15.0 06/27 [place] [facility] ANEMIA Vitamin B12 521 254 - 1320 06/27 [facility] STUDY Lvl [facility] CHEM PANEL Ammonia 29.0 <=45.0 06/27 [facility] uMol/L [facility] IMMUNOLOGY RPR Non-Reactive Non 06/27 [facility] (06/27/18 1:12 PM) [facility] MOLECULAR HCV RNA <1.2 06/26 [facility] DIAGNOSTIC Log10 [facility] MOLECULAR HCV RNA Not Detected 06/26 [facility] DIAGNOSTIC [facility]Load (06/26/18 2:58 PM) [facility] URINE AND UA <=1.0 0.1 - 1.0 06/26 [facility] STOOL Urobilinogen mg/dL [facility] URINE AND UA WBC 2 0 - 5 06/26 [facility] [place] [facility] [address] [place] [address] URINE AND UA Leuk Est Negative Negative 06/26 [facility] [place] [facility] (06/26/18 8:03 AM) [facility] URINE AND UA Nitrite Negative Negative 06/26 [facility] [place] [facility] (06/26/18 8:03 AM) [facility] URINE AND UA Sq Epi None Seen 06/26 [facility] [place] [facility] URINE AND UA RBC <1 0 - 2 06/26 [facility] [place] [facility] [address] [place] [address] URINE AND UA Glucose Negative Negative 06/26 [facility] STOOL mg/dL mg/dL [facility] URINE AND UA Protein 50 mg/dL Negative 06/26 [facility] STOOL mg/dL [facility] URINE AND UA Blood Negative Negative 06/26 [facility] [place] [facility] (06/26/18 8:03 AM) [facility] URINE AND UA pH 7.5 5.0 - 8.0 06/26 [facility] [place] [facility] /[address] [place] [address] URINE AND UA Bili Negative Negative 06/26 [facility] STOOL *NA* /2017 [facility] (06/26/18 8:03 AM) Cente r URINE AND UA Ketones Negative Negative 06/26 [facility] STOOL mg/dL mg/dL [facility] URINE AND UA Color Light Yellow Yellow 06/26 [facility] STOOL *NA* Medical (06/26/18 8:03 AM) [place] URINE AND UA Spec Grav 1.004 <=1.030 06/26 [facility] STOOL /2017 [facility] URINE AND UA Turbidity Clear Clear 06/26 [facility] STOOL (06/26/18 8:03 AM) [facility] IMMUNOLOGY Hep Bs Ab 66.7 <=7.4 06/24 [place] mIU/mL [facility] IMMUNOLOGY Hep C Ab Positive 06/24 [place] *ABN* Medical (06/24/18 1:39 PM) [place] IMMUNOLOGY Hep B Core Negative Negative 06/24 [place] Ab *NA* Medical (06/24/18 1:39 PM) [place] IMMUNOLOGY Hep B Core Negative Negative 06/24 [facility] IgM *NA* Medical (06/24/18 1:39 PM) [place] IMMUNOLOGY Hep Bs Ag Negative Negative 06/24 [place] *NA* /2017 Medical (06/24/18 1:39 PM) [place] r BACTERIAL - MRSA by PCR Negative 06/24 [facility] (06/24/18 1:05 PM) [facility] CARDIAC Troponin-I 0.05 0.00 - 06/24 [facility] ENZYMES 0.40 /2017 [facility] CARDIAC BNP 1954 <=100 06/24 [facility] ENZYMES pg/mL [facility] CARDIAC proBNP 32443 0 - 125 06/24 [facility] ENZYMES /2017 [facility] CHEM PANEL Bili Direct 0.1 0.0 - 0.3 06/24 [place] /2017 [facility] CHEM PANEL Bili 0.8 0.0 - 1.0 06/24 [place] Indirect /2017 [facility] HEMATOLOGY PTT 36.4 22.9 - 06/24 [place] 35.8 [facility] HEMATOLOGY PT 15.4 12.0 - 06/24 [place] 14.7 [facility] HEMATOLOGY INR 1.24 0.85 - 06/24 [place] 1.17 [facility] HEMATOLOGY Basophils # 0.1 0.0 - 0.2 06/24 [place] [facility] IMMUNOLOGY HIV Ag/Ab Negative Negative 06/24 [facility] 4th Gen *NA* /2017 Medical (06/24/18 1:05 PM) Cente r MOLECULAR Influenza A Negative Negative 06/24 [facility] DIAGNOSTIC PCR (06/24/18 1:05 PM) /2017 [facility] MOLECULAR Source Flocked NOTE TAKER Swab 06/24 [place] as DIAGNOSTIC Respiratory (06/24/18 1:05 PM) Medical [facility] [place] PCR Center MOLECULAR Influenza B Negative Negative 06/24 [facility] DIAGNOSTIC PCR (06/24/18 1:05 PM) [facility] RSV PCR Negative Negative 06/24 [facility] DIAGNOSTIC (06/24/18 1:05 PM) /[facility] Ca Ion WB 0.92 1.05 - 06/24 [place] PROFILE . [facility] PARATHYROID Ca Norm WB 0.86 1.05 - 06/24 Result [facility] 07.27 Comment: [facility] RESULT CALLED TO SHERRI BELLA AT 06/24/2018 15:42 BY SXP. READ BACK OK. SPECIAL Hgb A1C <3.5 % <=5.6 % 06/24 [facility] CHEMISTRY /2017 [facility] CHEM PANEL eGFR 14 01/10 Result Comment: [facility] eGFR is City calculated using the [...] Creatinine 3.84 0.50 - 01/10 Lvl 1.40 [facility] CHEM PANEL Calcium Lvl 8.3 8.5 - 10.5 01/10 [facility] CHEM PANEL AGAP 10.1 10.0 - 01/10 20.0 [facility] CHEM PANEL CO2 32 24 - 32 01/10 [facility] CHEM PANEL Chloride Lvl 102 95 - 109 01/10 [facility] CHEM PANEL Potassium 4.1 3.5 - 5.1 01/10 MH Lvl /2016 [facility] CHEM PANEL Sodium Lvl 140 135 - 145 01/10 [facility] CHEM PANEL BUN 9 7 - 22 01/10 [facility] CHEM PANEL Glucose Lvl 91 70 - 99 01/10 [facility] CHEM PANEL Phosphorus 2.6 2.5 - 4.5 01/10 [facility] IMMUNOLOGY Hep Bs Ag Negative Negative 01/09 *NA* /2016 [facility] (01/09/17 6:45 PM) [facility] DRUG SCREEN UDS Note See Note 01/08 *NA* /2016 [facility] (01/08/17 6:00 PM) [facility] DRUG SCREEN U Benzodia Negative Negative 01/08 Scr *NA* /2016 [facility] (01/08/17 6:00 PM) [facility] DRUG SCREEN U Pinky Scr Negative Negative 01/08 *NA* /2016 [facility] (01/08/17 6:00 PM) [facility] DRUG SCREEN U Cocaine Negative Negative 01/08 Scr *NA* /2016 [facility] (01/08/17 6:00 PM) [facility] DRUG SCREEN U Cannab Scr Negative Negative 01/08 *NA* /2016 [facility] (01/08/17 6:00 PM) [facility] DRUG SCREEN U Phencyc Negative Negative 01/08 Scr *NA* /2016 [facility] (01/08/17 6:00 PM) [facility] DRUG SCREEN U Opiate Scr Negative Negative 01/08 *NA* [facility] (01/08/17 6:00 PM) [facility] DRUG SCREEN U Amph Scr Negative Negative 01/08 *NA* /2016 [facility] (01/08/17 6:00 PM) [facility] URINE AND UA <=1.0 0.1 - 1.0 01/08 STOOL Urobilinogen mg/dL /2016 [facility] URINE AND UA Ketones Negative 01/08 STOOL /2016 [facility] URINE AND UA Color Straw 01/08 STOOL /2016 [facility] URINE AND UA pH >=9.0 5.0 - 8.0 01/08 STOOL *ABN* /2016 [facility] (01/08/17 6:00 PM) [facility] URINE AND UA RBC <1 0 - 2 01/08 STOOL /2016 [facility] URINE AND UA WBC 1 0 - 5 01/08 STOOL /2016 [facility] URINE AND UA Glucose Negative Negative 01/08 STOOL mg/dL mg/dL /2016 [facility] URINE AND UA Spec Grav 1.004 <=1.030 01/08 STOOL /2016 [facility] URINE AND UA Nitrite Negative Negative 01/08 [facility] (01/08/17 6:00 PM) /2016 [facility] URINE AND UA Protein 30 mg/dL Negative 01/08 STOOL mg/dL /2016 [facility] URINE AND UA Turbidity Clear Clear 01/08 [facility] (01/08/17 6:00 PM) /2016 [facility] URINE AND UA Bili Negative Negative 01/08 STOOL *NA* /2016 [facility] (01/08/17 6:00 PM) [facility] URINE AND UA Blood Negative Negative 01/08 [facility] (01/08/17 6:00 PM) /2016 [facility] URINE AND UA Mucus Few /LPF None Seen 01/08 STOOL /LPF /2016 [facility] URINE AND UA Sq Epi Few /LPF Few /LPF 01/08 STOOL /2016 [facility] URINE AND UA Leuk Est Negative Negative 01/08 STO[facility] (01/08/17 6:00 PM) /2016 [facility] URINE AND UA Bacteria Occasional None Seen 01/08 STOOL /HPF /HPF /2016 [facility] HEMATOLOGY PTT 36.2 22.9 - 01/08 35.8 /2016 [facility] HEMATOLOGY INR 1.05 0.85 - 01/08 1.17 /2016 [facility] HEMATOLOGY PT 13.9 12.0 - 01/08 MH 14.7 /2016 [facility] LIPIDS VLDL 22 01/08 MH /2016 [facility] LIPIDS LDL 50 <=99 mg/dL 01/08 (Calculated) /2016 [facility] LIPIDS Chol 145 <=199 01/08 mg/dL [facility] LIPIDS Trig 109 <=149 01/08 mg/dL /2016 [facility] LIPIDS HDL 73 >=61 mg/dL 01/08 /2016 [facility] LIPIDS CHD Risk 1.99 3.90 - 01/08 5.80 /2016 [facility] SPECIAL Hgb A1C 4.6 <=5.6 % 01/08 CHEMISTRY /2016 [facility] CHEM PANEL B/C Ratio 3 6 - 25 01/08 [facility] CHEM PANEL AGAP 14.4 10.0 - 07/ MH 20.0 /2017 [facility] CHEM PANEL Globulin 5.5 2.7 - 4.2 01/08 [facility] CHEM PANEL A/G Ratio 0.6 0.7 - 1.6 01/08 [facility] CHEM PANEL eGFR 8 01/08 Result Comment: [facility] eGFR is [place] calculated using the [...] Glucose Lvl 85 70 - 99 01/08 [facility] CHEM PANEL CO2 26 24 - 32 01/08 [facility] CHEM PANEL ALT 14 0 - 65 01/08 [facility] CHEM PANEL Creatinine 6.23 0.50 - 07 MH Lvl 1.40 /2016 [facility] CHEM PANEL Albumin Lvl 3.3 3.5 - 5.0 01/08 [facility] CHEM PANEL BUN 16 7 - 22 01/08 [facility] CHEM PANEL AST 24 0 - 37 / [facility] CHEM PANEL Bili Total 0.5 0.2 - 1.3 01/08 [facility] CHEM PANEL Total 8.8 6.4 - 8.4 01/08 MH [facility] CHEM PANEL Alk Phos 215 39 - 136 01/08 [facility] CHEM PANEL Chloride Lvl 101 95 - 109 01/08 [facility] CHEM PANEL Potassium 5.4 3.5 - 5.1 01/08 MH Lvl /2016 [facility] CHEM PANEL Calcium Lvl 9.1 8.5 - 10.5 07/ [facility] CHEM PANEL Sodium Lvl 136 135 - 145 07/ [facility] CHEM PANEL Magnesium 2.4 1.8 - 2.4 / Lvl /2016 [facility] HEMATOLOGY Hgb 10.5 12.0 - 07 MH 16.0 /2016 [facility] HEMATOLOGY Hct 31.5 36.0 - 07 MH 48.0 /2016 [facility] HEMATOLOGY WBC 9.0 3.7 - 10.4 07/ /2016 [facility] HEMATOLOGY RBC 3.70 4.20 - 01/08 MH 5.40 /2016 [facility] HEMATOLOGY MCV 85.3 80.0 - 01/08 98.0 /2016 [facility] HEMATOLOGY MCH 28.5 27.0 - 01/08 MH 31.0 /2016 [facility] HEMATOLOGY MCHC 33.4 32.0 - 01/08 MH 36.0 /2016 [facility] HEMATOLOGY RDW 12.9 11.5 - 01/08 MH 14.5 /2016 [facility] HEMATOLOGY Platelet 212 133 - 450 07 [facility] HEMATOLOGY MPV 9.0 7.4 - 10.4 07 [facility] HEMATOLOGY Monocytes 12.8 2.0 - 12.0 01/08 [facility] HEMATOLOGY Segs 43.7 45.0 - 01/08 75.0 /2016 [facility] HEMATOLOGY Lymphocytes 40.4 20.0 - 01/08 40.0 /2016 [facility] HEMATOLOGY Segs-Bands # 4.0 1.5 - 8.1 01/08 [facility] HEMATOLOGY Eosinophils 1.9 0.0 - 4.0 01/08 [facility] HEMATOLOGY Monocytes # 1.2 0.0 - 0.8 01/08 [facility] HEMATOLOGY Lymphocytes 3.7 1.0 - 5.5 01/08 [facility] HEMATOLOGY Basophils 1.2 0.0 - 1.0 01/08 [facility] HEMATOLOGY Eosinophils 0.2 0.0 - 0.5 01/08 # /2016 [facility] HEMATOLOGY Basophils # 0.1 0.0 - 0.2 01/08 [facility] Pathology Reports No Data Provided for This Section Diagnostic Reports Report Value Date Source Chest 2 views DX EXAM: XR CHEST 1 VIEW 06/25/2018 [facility] DATE: 06/25/2018 5:32 ADMINISTRATOR OF HOME HEALTH Center INDICATION: - bilateral patchy opacities COMPARISON: [...] DX EXAM: XR CHEST 1 VIEW 06/24/2018 [facility] edical DATE: 06/24/2018 12:03 ADMINISTRATOR OF HOME HEALTH [facility] INDICATION: - icu ad. FINDINGS: Comparison [...] MRI 01/08/2017 4:41 PM CDT 03/2017 [facility] MRI Clinical Indication: Hemihyp estesia - transferred to [facility] CT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 infarction; [...] dical Center Diastolic (mm Hg) 76 06/30/2018 [facility] Systolic (mm Hg) 149 06/30/2018 [facility] dical Center Diastolic (mm Hg) 69 06/30/2018 [facility] Systolic (mm Hg) 156 06/30/2018 [facility] dical Center Diastolic (mm Hg) 62 06/30/2018 [facility] Temperature Oral (F) 96.5 F 06/30/2018 [facility] Respitory Rate 20 06/30/2018 [facility] Heart Rate 83 06/30/2018 [facility] Temperature Oral (F) 96.3 F 06/30/2018 [facility] Respitory Rate 20 06/30/2018 [facility] Heart Rate 60 06/30/2018 [facility] Temperature Oral (F) 96.5 F 06/30/2018 [facility] Heart Rate 60 06/30/2018 [facility] Respitory Rate 20 06/30/2018 [facility] BMI Calculated 19.41 06/24/2018 [facility] Weight 45.085 06/24/2018 [facility] Height 152.4 cm 06/24/2018 [facility] Systolic (mm Hg) 128 01/10/2017 [facility] Diastolic (mm Hg) 72 01/10/2017 [facility][note 3] Respitory Rate 14 01/10/2017 [facility] C ity Systolic (mm Hg) 100 01/10/2017 [facility] Diastolic (mm Hg) 72 01/10/2017 [facility] Respitory Rate 24 01/10/2017 [facility] C ity Systolic (mm Hg) 118 01/10/2017 [facility] Diastolic (mm Hg) 60 01/10/2017 [facility] Respitory Rate 19 01/10/2017 [facility] C ity BMI Calculated 32.73 01/08/2017 [facility] C [facility]y Weight 76.007 01/08/2017 [facility] y Height 152.4 cm 01/08/2017 [facility] y Encounters Location Location Encounter Encounter Reason Attending ADM DC Stat us Source Details Type Number For Provider Date Date Visit [facility] [id number] Tom 01/09 01/10 Cullen Wood /2016 [facility] Inpatient [id number] Adrian 06/24 06/30 Porsche Simental /2017 [facility] Procedures Procedure Code Date Perfomer Comments Source section [id number] [facility] Cholecystectomy [id number] [facility] Assessment and Plan Assessment and Plan Date Source Extracted from:Title: FM R1 Discharge Summary 06/30/2018 [facility] Author: Daniel Murray MD PHD Date: 07/01/18 [...] emergent HD 2/2 hyperkalemia/uremia Final Diagnosis/Diagnoses: Acutepulmonaryedema Dxmmi-vu-sdrdewykwygqbjspdyw ESRD(endstagerenaldisease) Hepaticencephalopathy Malnutrition cognitive impairment 2/2 suspected [...] Hepatitis C who presented as transfer from [facility] for emergent dialysis. She presented [...] of Clonidine (home med) and transferred to [facility] for emergent dialysis as a direct ICU transfer. At [facility], patient's BP got as high as [...] with pt's sister, 2 brother s, aunt, flvqlh-ro-rop, and 2 daughters. Family apparently beleived pt [...] moving in w ith her brother and [id number]. PCP was contacted and giv en our [...] Zachery Fuentes, Call for appointment , PH: [phone], within: 2 Weeks, reason: Primary Care Physician follow up post hospitalization Daniel Murray MD/PhD Family Medicine PGY1 MSO# [id number] Extracted from:Title: [place] Nephrology progress note Author: Angela Howard DO Date: 06/30/18 NEPHROLOGY PROGRESS NOTE Attending: Adrian Simental MD Service: [facility] Service Code status: Full Code Reason [...] of Ms. To. Angela Howard, PGY5 P: [phone] C: [phone] Addendum by Rosamaria Palumbo MD on 06/30/2018 14:54 [place] NEPHROLOGY STAFF ATTESTATION I saw this medically [...] previous cocaine abuse, bipolar disorder, COPD, CAD/ DE 2012, Stroke in 2013, ESRD secondary to HTN started on HD 2 years ago. Patient usually has a TThS schedule and get transported to her HD center (in [facility]) with a car service last HD about 2 weeks ago per patient, h er transport service stopped coming and she never followed up afterwards presented to [facility] th 3 days of shortness of breath and swollen breasts and arms, found to have hypertensive urgency, hyperkalemia and pulmonary edema 1-ESRD: Secondary toHTN Duration 2 years HD center [facility] dialysis in [place] [employer] unknown to patient HD schedule TThS Last HD 2 weeks ago Dry weight unknown to patient Access left upper extremity AVF HD order for today- 2 hrs, 400/800, UF 1-3 kg as rommel will reassess tomorrow for further HDneeds 2-Volume status: pulmonary edema Hypervolemia Will control with iHD 3-Electrolytes: hyperkalemia Na, Ca, Mg unremarkable per OSH labs labs in [facility] pending Will control with iHD Renal diet [...] by Rosamaria Palumbo MD on 06/25/2018 21:43 ADMINISTRATOR OF HOME HEALTH [place] NEPHROLOGY STAFF ATTESTATION I saw and evaluated this medically compl ex patient on 06/25/18. I have reviewed the labs and radiographic data, discussed the plans with the fellow and renal team, and agree with this note. Extracted from:Title: MICU History and Physical Author: Miguelito Valero MD Date: 06/24/18 58YOF with PMH ofESRD, COPD, CVA,HTN, He patitis C who presented as transfer from [facility] for emergent dialysis found to [...] Antihypertensives Extracted from:Title: Clinical Document 01/10/2017 [facility] Author: Stefano Magana MD Date: [...] present . Stefano Magana M.D., [facility] Extracted from:Title: RENAL Author: Stefano Magana [...] TID. enoxaparin: 30 mg, 0.3 mL, SUB-Q, [id number]. famotidine: 20 mg, 1 tab, PO, Q12H. [...] 24hr Tot 0 0 0 CCL error: %UFD-Q-774-SMT_EDOC_COMMON(0, 0)[id number] on array out of bound at (size:1,occur:10). CCL error: %BYV-M-210-SMT_EDOC_COMMON(0, 0)[id number]:[id number] on array out of bound at (size:1,occur:5). CCL error: %FIU-O-674-SMT_EDOC_COMMON(0, 0)[id number]:1146Overflow on array out of bound at (size:1,occur:5). CCL error: %ZVC-S-472-SMT_EDOC_COMMON(0, 0)[id number]:1146Overflow on array out of bound at (size:1,occur:7). CCL error: %CUF-H-259-SMT_EDOC_COMMON(0, 0)[id number]:1146Overflow on array out of bound at (size:1,occur:2). [...] Dr. Wood Magana M.D., [facility] Extracted from:Title: History and Physical Author: Brendan [...] Date Source Social History TypeResponse 08/05/2013 [facility] Sexual Sexually active: No. Alcohol [...] Cessation Counseling No Social History TypeResponse 08/05/2013 [facility] Sexual Sexually active: No. Alcohol Past, Type [...]
--- OUTSIDE RECORDS SUMMARY | 2020-04-09 08:57 | XMS REPORT | Continuity of Care Document ---
:1960 Author Organization [facility] t Address [address] [place] [address] [place] [address] Care Team Providers Name Role Phone Maru Louie MD Primary Care Physician Ronan GIBBONS Attending Clinician Unavailable Ronan Gibbons MD Attending Clinician Sahil Otero MD Attending Clinician Jad Goodwin MD Attending Clinician Feng Simental Attending Clinician Otoneil Muir Attending Clinician JAD GOODWIN Admitting Clinician Unavailable Feng Simental Admitting Clinician Otoniel Muir Admitting Clinician Payers Payer Name Policy Policy Number Effective Expiration Source Type Date Date MEDICAREMEDICARE A xxxxxxxxxxx [facility] BxxxxxxxxxxxMedicare [facility] AMERIGROUP MEDICARE ALLYN xxxxxxxxx [facility] CAREAMERIGROUP MAPSxxxxxxxxx [facility] MEDICAID - MEDICAID [id number] xxxxxxxxx [facility] CAREMEDICAID [facility]xxxxxxxxx[facility]icaid [facility] MEDICAIDMEDICAID OF xxxxxxxxx [facility] [place] [facility] Problems Condition Condition Condition Status Onset Resolution Last Treating Co mments Source Name Details Category Date Date Treatment Clinician Date Shortness Shortness Disease Active 2019-[address] [facility] of breath of breath 0-06 [facility] - 00:00: Medical 00 Center Leucocytos Leucocytos Disease Active 2019-[address] is is 0 [facility] Center KIDNEY Diagnosis Active 2017-072018-07-11 Mem oria FAILURE 08-25 22:07:00 l KIDNEY 00:00: [place] FAILURE 00 Active 06/24/2018 [facility] ISCHEMIC Diagnosis [facility] 16:23:00 l ISCHEMIC 00:00: Josesito n STROKE 00 Active 01/08/2017 [facility] NUMBNESS Diagnosis Active 2017-01-17 emoria 01-08 21:50:00 l NUMBNESS 00:00: Josesito n 00 Active 01/08/2017 [facility] Atrial Atrial Disease Active [facility] myxoma myxoma 02-05 [facility] - [facility]: Medical 00 [place] ESRD on ESRD on Disease Active [facility] dialysis dialysis 02-05 [facility] - 00:[facility]: Medical 00 [place] Hyponatrem Hyponatrem Disease Active [facility] ia ia 02-05 [facility] - 00:[facility]: Medical 00 [place] Metabolic Metabolic Disease Active [facility] bone bone 02-05 [facility] - disease disease 00:00: Medical 00 [place] Catheter-r Catheter-r Disease Active [facility] elated elated 02-05 [facility] - bloodstrea bloodstrea 00:00: Ms dical m m 00 Center infection infection (CRBSI) (CRBSI) Infective Infective Disease Active [facility] endocardit endocardit 02-05 Irma kes - is is 00:00: Medical 00 Center Anemia of Anemia of Disease Active [facility] chronic chronic 02-05 [facility] - disease disease 00:00: Medical 00 Center Depression Depression Disease Active [facility] 02-05 [facility] 00[facility]: Medical 00 Center Bacteremia Bacteremia Disease Active [facility] 01-15 [facility] - 00:[facility]: Medical 00 [place] Methicilli Problem Active 2008-072019-01-17 M homeroria n 2-10 13:57:27 l resistant 00:00: [place] Staphyloco Methicilli 00 ccus n aureus resistant (organism) Staphyloco ccus aureus (organism) Active 06/11/2009 Problem 01/17/2019 06/11/09 Nares- MRSA by PCRProblem added by Discern Expert. [facility] Coronary Coronary Problem Active [facility] artery artery [facility] - disease disease Memoria involving involving l nondalton nondalton Outpati coronary coronary ent artery of artery of Clin ics nondalton nondalton heart, heart, angina angina presence presence unspecifie [...] [facility]ukes - dialysis dialysis Memori a l Outpati ent Clinics End stage End stage Problem Active [facility] renal renal [facility] - disease disease Memoria l Outpati ent Clinics Insomnia, Insomnia, Problem Active [facility] unspecifie unspecifie Irma kes - d type d type Memoria l Outpati ent Clinics HTN, goal HTN, goal Problem Active [facility] below below [facility] - 130/80 130/80 Mem[facility] l [facility]pati ent Clinics Vascular Vascular Problem Active [facility] dementia dementia [facility] - with with Memoria behavior behavior l disturbanc disturbanc Ou tpati e e ent Clinics Cerebral Problem 2017-01-13 Mem oria infarction 02:14:10 l , Cerebral Joses[place] n unspecifie infarction d , unspecifie d 01/13/2017 [facility] End stage Problem 2019-01-17 Me moria renal 13:57:27 l disease End [place] stage renal disease 01/17/2019 [facility] Chronic Problem 2019-01-17 [place] diastolic 13:57:27 l (congestiv Chronic Her holloway e) heart diastolic failure (congestiv e) heart failure 01/17/2019 [facility] Acidosis Problem 2019-01-17 Mem oria 13:57:27 l Acidosis Josesito n 01/17/2019 [facility] Unspecifie Problem 2019-01-17 M emoria d 13:57:27 l protein-ca Joses[place] n angi Unspecifie malnutriti d on protein-ca angi malnutriti on 01/17/2019 [facility] Cocaine Problem 2019-01-17 [place] use, 13:57:27 l unspecifie Cocaine Her holloway d, use, uncomplica unspecifie ruben d, uncomplica ruben 01/17/2019 [facility] Patient's Problem 2019-01-17 Me moria noncomplia 13:57:27 l nce with [place] other Patient's medical noncomplia treatment nce with and other regimen medical treatment and regimen 01/17/2019 [facility] Nicotine Problem 2019-01-17 Mem oria dependence 13:57:27 l , Nicotine Josesito n cigarettes dependence , , uncomplica cigarettes ruben , uncomplica ruben 01/17/2019 [facility] Bipolar Problem 2019-01-17 [place] disorder, 13:57:27 l unspecifie Bipolar Her holloway d disorder, unspecifie d 01/17/2019 [facility] Chronic Problem 2019-01-17 [place] obstructiv 13:57:27 l e Chronic [place] pulmonary obstructiv disease, e unspecifie pulmonary d disease, unspecifie d 01/17/2019 [facility] Chronic Problem 2019-01-17 [place] viral 13:57:27 l hepatitis Chronic Herm jad C viral hepatitis C 01/17/2019 [facility] Hyperkalem Problem 2019-01-17 M emoria ia 13:57:27 l [place] Hyperkalem ia 01/17/2019 [facility] Hypertensi Problem 2019-01-17 M emoria ve urgency 13:57:27 l [place] Hypertensi ve urgency 01/17/2019 [facility] Anemia in Problem 2019-01-17 Me moria chronic 13:57:27 l kidney Anemia [place] disease in chronic kidney disease 01/17/2019 [facility] Patient's Problem 2019-01-17 Me moria noncomplia 13:57:27 l nce with [place] renal Patient's dialysis noncomplia nce with renal dialysis 01/17/2019 [facility] Vascular Problem 2019-01-17 Mem oria dementia 13:57:27 l without Vascular Kayce nn behavioral dementia disturbanc without e behavioral disturbanc e 01/17/2019 [facility] Dementia Problem 2019-01-17 Mem oria in other 13:57:27 l diseases Dementia Herm jad classified in other elsewhere diseases without classified behavioral elsewhere disturbanc without e behavioral disturbanc e 01/17/2019 [facility] Hepatic Problem 2019-01-17 [place] failure, 13:57:27 l unspecifie Hepatic Her holloway d without failure, coma unspecifie d without coma 9 [facility] 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-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 13:57:27 l heart [place] disease of Atheroscle nondalton rotic coronary heart artery disease of without nondalton angina coronary pectoris artery without angina pectoris 01/17/2019 [facility] Bipolar Problem Resolve 2019-01-17 Mem oria disorder d 13:57:27 l (disorder) Bipolar Her holloway disorder (disorder) Resolved Problem 01/17/2019 [facility] Chronic Problem Resolve 2019-01-17 Mem oria kidney d 13:57:27 l disease Chronic Josesito n (disorder) kidney disease (disorder) Resolved Problem 01/17/2019 [facility] Chronic Problem Resolve 2019-01-17 Mem oria obstructiv d 13:57:27 l e lung Chronic [place] disease obstructiv (disorder) e lung disease (disorder) Resolved Problem 01/17/2019 [facility] Cerebrovas Problem Resolve 2019-01-17 Memoria cular d 13:57:27 l accident [place] (disorder) Cerebrovas cular accident (disorder) Resolved Problem 01/17/2019 [facility] Dialysis Problem Resolve 2019-01-17 Me moria finding d 13:57:27 l (finding) Dialysis Her holloway finding (finding) Resolved Problem 01/17/2019 started approx 2013 [facility] Disease of Problem Resolve 2019-01-17 Memoria gallbladde d 13:57:27 l r Disease [place] (disorder) of gallbladde r (disorder) Resolved Problem 01/17/2019 [facility] Acute Problem Resolve 2019-01-17 [place] myocardial d 13:57:27 l infarction Acute Kayce nn (disorder) myocardial infarction (disorder) Resolved Problem 01/17/2019 [facility] Viral Problem Resolve 2019-01-17 [place] hepatitis d 13:57:27 l C Viral [place] (disorder) hepatitis C (disorder) Resolved Problem 01/17/2019 [facility] Hypertensi Problem Resolve 2019-01-17 Memoria ve d 13:57:27 l disorder, [place] systemic Hypertensi arterial ve (disorder) disorder, systemic arterial (disorder) Resolved Problem 01/17/2019 [facility] Smoker Problem Resolve 2019-01-17 [place] (finding) d 13:57:27 l Smoker [place] (finding) Resolved Problem 01/17/2019 [facility] Simple Problem Active 2019-01-17 Memor ia obesity 13:57:27 l (disorder) Simple Herm jad obesity (disorder) Active Problem 01/17/2019 [facility] CEREBRAL Diagnosis Active 2017-01-08 M emoria INFARCTION 16:23:00 l , CEREBRAL Josesito n UNSPECIFIE INFARCTION D , UNSPECIFIE D Active [facility] ILLNESS, Diagnosis Active 2017-01-17 M emoria UNSPECIFIE 21:50:00 l D ILLNESS, Josesito n UNSPECIFIE D Active [facility] Hypertensi Problem 2019-2019-01-17 2019-01-17 Memoria ve heart 1-10 13:57:27 13:57:27 l and 04:12: [place] chronic Hypertensi 09 kidney ve heart disease and with heart chronic failure kidney and with disease stage 5 with heart chronic failure kidney and with disease, stage 5 or end chronic stage kidney renal disease, disease or end stage renal disease 07/12/2018 01/17/2019 [facility] Allergies, Adverse Reactions, Alerts Allergy Allergy Status Severity Reaction(s) Onset Inactive Treating Comm ents Source Name Type Date Date Clinician No Known No Known Active Memori a Medicati Medicati l on on [place] Allergie Allergie s s Family History Family Member Diagnosis Comments Start Date Stop Date Source Natural mother Heart disease [facility] Social History Social Habit Start Date Stop Date Quantity Comments Source Sex Assigned At [facility] Cigarettes smoked 2020-04-07 2020-04-07 [facility] - current (pack per 00:00:00 00:00:00 [facility] Center day) - Reported Cigarette pack-years 2020-04-07 2020-04-07 [facility] - 00:00:00 00:00:00 [facility] Social History 2013-08-05 2013-08-05 [facility] evelyn 08:46:07 08:46:07 Smoking Status Start Date Stop Date Source Current some day smoker 2020-04-07 00:00:00 [facility] Medications Ordered Filled Start Stop Current Ordering Indication Dosage Frequency Signature Comments Components Source Medication Medication Date Date Medication? Clinician (SIG) Name Name hydrOXYzine 2019-07 50mg Take [address] [facility] (VISTARIL) 0-06 10-06 by mouth 3 Irma kes - 50 MG 04:16: 00:00 (three) Medical capsule 10 :00 times Center daily as needed for Anxiety. omeprazole 2019-07 Yes 40mg QD Take [address] (PRILOSEC) 0-06 by mouth [facility] - 20 MG 01:53: daily . Medical capsule 37 [place] cloNIDine 2019-07 Yes .2mg QD Take 0.[address] [facility] HCl 0-06 mg by [facility]ukes - (CATAPRES) 01:53: mouth Medica l 0.1 MG 37 daily . Center tablet isosorbide 2019-07 Yes 30mg QD Take [address] dinitrate 0-06 by mouth [facility] - (ISORDIL) 01:53: daily . Medic al 10 MG 37 Center tablet carvediloL 2019-07 Yes 12.5mg Take 12.[address] (COREG) 0-06 mg by [facility] - 12.5 MG 01:53: mouth 2 Medical tablet 37 (two) Center times daily with breakfast and dinner. ramipriL 2019-07 Yes 5mg QD Take [address] [facility] (ALTACE) 5 0-06 by mouth [facility] - MG capsule 01:53: daily. Medic al 37 [place] predniSONE 2019-07 Yes 10mg Q.5D Take [address] (DELTASONE) 0-06 by mouth 2 Irma kes - 10 MG 01:53: (two) Medical tablet 37 times Center daily. aspirin 81 2019-07 Yes 81mg QD Take [address] MG EC 0-06 by mouth [facility] - tablet 01:53: daily. Medical 37 Center Breo Breo 2019- No Patrick [address] Ellipta Ellipta 4-08 08-06 Jovel [facility] - 00:00: 00:00 Memoria 00 :00 l Outpati ent Clinics Ventolin Ventolin Yes Patrick [address] [facility] HFA HFA 1-16 Jovel needed [facility] - 00:00: Memoria 00 l Outpati ent Clinics Docusate 2017-07 Yes 50 mg = 1 [place] Sodium 50 2-28 cap, PO, l MG Oral 22:57: BID, PRN Josesito n Capsule 00 Constipati on, Take 1-2 tabs daily to maintain soft formed stools., # 180 cap, 0 Refill(s) POLYETHYLEN 2017-07 Yes 17 gm = 1 M emoria E GLYCOL 2-28 pkt, GT, l 3350 22:57: Daily, As needed for constipati on, 0 Refill(s) POLYETHYLEN 2017-07 No Notes: [place] en[place] E GLYCOL 2-24 Dissolve l 3350 15:00: in 8 oz of water or juice. (Same as: Miralax) Clonidine 2017-07 No Notes: Memori a Hydrochlori 2-24 (Same As: l de 0.1 MG 15:00: Catapres) Her holloway Oral Tablet 00 Amlodipine 2017-07 No Notes: Memor ia 2-24 (Same as: l 15:00: Norvasc) Cullen 00 Insulin 2017-07 No 60 Memoria regular 2-24 units) l 12:22: WASTE: F/P [place] - Black; E - Municipal Trash Bin Stable for 28 days at room temperatur e Expires in days from ____Date Glucagon 2017-07 No 1 mg, Memoria 2-24 Route: IM, l 12:22: Drug form: [place] 00 PDR/INJ, PRN, Dosing Weight 45.085, kg, PRN Blood Glucose Results, Start date: 06/25/18 6:22:00 DUST MIXER, Duration: 30 day, Stop date: 07/25/18 6:21:00 DUST MIXER Dextrose 2017-07 No 12.5 gm, Memor ia 50% Syringe 2-24 25 mL, l 12:22: Route: [place] IVP, Drug Form: INJ, Dosing Weight 45.085, kg, PRN, PRN Blood Glucose Results, Start date: 06/25/18 6:22:00 DUST MIXER, Duration: 30 day, Stop date: 07/25/18 6:21:00 DUST MIXER NIFEdipine 2017-07 No Notes: Memor ia 30 mg oral 2-24 (Same as: l tablet, 04:34: Adalat CC, Herm jad extended 00 Procardia release XL) Give on empty stomach. Take 1 hour before or 2 hours after meal; "Avoid grapefruit and grapefruit juice". Do not crush Saline 2017-07 No Notes: Memoria Flush 0.9% 2-24 (Same as: l 03:00: BD [place] 00 Posiflush) sennosides, 2017-07 No Notes: [place] INTERMEDIATE 2-24 (Same as: l 03:00: Senokot) NIFEdipine 2017-07 No Notes: Memor ia 30 mg oral 2-24 (Same as: l tablet, 02:14: Adalat CC, Herm jad extended 00 Procardia release XL) Give on empty stomach. Take 1 hour before or 2 hours after meal; "Avoid grapefruit and grapefruit juice". Do not crush Docusate 2017-07 No Notes: Memoria 2-23 (Same as: l 23:00: Colace) heparin 2017-07 No Notes: Memoria sodium, 2-23 porcine l porcine 22:00: heparin [place] 2500 UNT/ML 00 Injectable Solution Cardene 40 [...] tab, PO, l tablet 20:03: Daily, 0 Cullen 00 Refill(s) Clonidine 2017-07 No Notes: Memori a Hydrochlori 2-23 (Same As: l de 0.1 MG 19:13: Catapres) Her holloway Oral Tablet 00 Saline 2017-07 No Notes: Memoria Flush 0.9% 2-23 (Same as: l 18:07: BD [place] Posiflush) Nystatin 2017-07 No Notes: Memoria 100 UNT/MG 2-23 (Same l Topical 18:07: as:Mycosta Herm jad Powder 00 tin, Nilstat) For external use [...] PO, l oral tablet 23:09: Bedtime, # Cullen 00 30 tab, 0 Refill(s) heparin No Notes: Memoria 7-10 porcine l 21:00: heparin gabapentin No Notes: Memor ia 100 MG Oral 7-10 (Same as: l Capsule 02:00: Neurontin) Herm jad Saline No 10 ml, Memoria Flush 0.9% 7-10 Route: l 02:00: IVP, Drug Form: INJ, Dosing Weight 76.007, kg, Q12H, Start date: 01/08/17 21:00:00 CDT, Duration: 30 day, Stop date: 02/07/17 9:00:00 CDT Hydroxyzine No Notes: [place] 7-10 (Same as: l 00:00: Atarax) Avoid alcohol. ARIPiprazol No Notes: [place] en[place] e 7-10 Non-Formul l 00:00: yaima Drug. (Same as: Jose) Amlodipine No Notes: Memor ia 01-08 (Same as: l 23:26: Norvasc) Sertraline No Notes: Memor ia 01-08 (Same as: l 23:25: Zoloft) Clonidine No Notes: Memori a Hydrochlori 01-08 (Same As: l de 0.2 MG 23:24: Catapres) Her holloway Oral Tablet 00 200 ACTUAT No Notes: SEE M emoria Albuterol 01-08 RT l 0.09 23:00: DOCUMENTAT Cullen MG/ACTUAT 00 ION (Same Metered as: Dose [...] tab, PO, l tablet 22:30: Daily, 0 [place] 00 Refill(s) gabapentin Yes 300 mg = 3 M emoria 100 MG Oral 01-08 cap, PO, l Capsule 22:30: Bedtime, 0 Herm Refill(s) Hydroxyzine Yes 50 mg, PO, Memoria 01-08 TID, 0 l 22:30: Refill(s) [place]ullen 00 Enoxaparin No Notes: Memor ia 01-08 (Same as: l 22:00: Lovenox) aspirin 81 No Notes: Do Me moria mg tablet, 01-08 not crush l enteric 21:49: or chew. Josesito n coated (Same As: Ecotrin) Famotidine No Notes: Memor ia 01-08 (Same as: l 21:49: Pepcid) Sodium No 25 mL, Memoria Chloride 01-08 Route: l 0.9% IV 21:48: IVP, Start date: 01/08/17 16:48:00 CDT, Duration: 30 day, Stop date: 02/07/17 16:47:00 CDT, PRN Line Flush BD Normal No Notes: Memori a Saline 01-08 (Same as: l Flush 21:48: BD [place] 00 Posiflush) BD Normal No Notes: Memori a Saline 01-08 (Same as: l Flush 21:47: BD [place] 00 Posiflush) Saline No 10 ml, Memoria Flush [...] (six) Center hours as needed for Anxiety. acetaminoph Yes 1{tbl} Take [address] en-codeine 8-25 tablet by Luke s - (TYLENOL 10:49: mouth Medical #3) 300-30 42 every 4 Center mg per (four) tablet hours as needed for Pain. ertapenem Yes .5g Q24H Inject 0.[address] (INVanz) 8-05 g [facility] - IVPB 00:00: intravenou Medical 00 sly daily. [place] senna-docus Yes 1{tbl} QD Take [address] ate 8-01 tablet by [facility]ukes - (SENOKOT S) 00:00: mouth Medic al 8.6-50 mg 00 nightly. Center per tablet sertraline Yes 50mg QD Take [address] (ZOLOFT) 50 7-16 by mouth Luke s - MG tablet 02:19: daily. Medica l 00 Center Clonidine Clonidine Yes Patrick [address] HCl HCl Jovel [facility] Ramipril Ramipril Yes Patrick [address] [facility] Jovel [facility] Carvedilol Carvedilol Yes Patrick as [facility] Jovel directed [facility] Trazodone Trazodone Yes Patrick [address] HCl HCl Jovel at bedtime [facility]ukes - as needed [facility] Isosorbide Isosorbide Yes Patrick [address] Mononitrate Mononitrate Jovel in the Lukes - morning [facility] ent [facility] Renjarrod Angela 2019- No Patrick [address] 10-06 Jovel with meals [facility] - 00:00 Memoria :00 [facility] Vital Signs Vital Name Observation Time Observation Value Comments Source Systolic blood 2020-04-09 07:00:00 142 mm[Hg] [facility] Diastolic blood 2020-04-09 07:00:00 67 mm[Hg] [facility] Heart rate 2020-04-09 07:00:00 54 /min [facility] Body temperature 2020-04-09 07:00:00 36.17 Wen [facility] Respiratory rate 2020-04-09 07:00:00 18 /min [facility] Oxygen saturation in 2020-04-09 07:00:00 97 /min [facility] Arterial blood by Medical Ce nter Pulse oximetry Body height 2020-04-07 01:50:00 152.4 cm [facility] Body weight Measured 2020-04-07 01:50:00 77.8 kg [facility] BMI 2020-04-07 01:50:00 33.50 kg/m2 [facility] Systolic (mm Hg) 2018-06-30 19:00:00 Clayton rial [place] Diastolic (mm Hg) 2018-06-30 19:00:00 Mem orial [place] Systolic (mm Hg) 2018-06-30 18:50:00 [place] rial [place] Diastolic (mm Hg) 2018-06-30 18:50:00 Mem orial [place] Systolic (mm Hg) 2018-06-30 18:30:00 [place] rial [place] Diastolic (mm Hg) 2018-06-30 18:30:00 Mem orial [place] Temperature Oral (F) 2018-06-30 14:55:00 96.5 F [facility] [place] Respitory Rate 2018-06-30 14:06:00 Memori al [place] Heart Rate 2018-06-30 14:06:00 [facility] [place] Temperature Oral (F) 2018-06-30 14:06:00 96.3 F [facility] [place] Respitory Rate 2018-06-30 10:31:00 Memori al [place] Heart Rate 2018-06-30 10:31:00 [facility] [place] Temperature Oral (F) 2018-06-30 10:31:00 96.5 F [facility] [place] Heart Rate 2018-06-30 06:17:00 [facility] [place] Respitory Rate 2018-06-30 06:17:00 Memori al [place] BMI Calculated 2018-06-24 18:20:00 Memori al [place] Weight 2018-06-24 18:20:00 [facility] [place] Height 2018-06-24 18:20:00 152.4 cm [facility] [place] Systolic (mm Hg) 2017-01-10 21:00:00 [place] rial [place] Diastolic (mm Hg) 2017-01-10 21:00:00 Mem orial [place] Respitory Rate 2017-01-10 21:00:00 Memori al [place] Systolic (mm Hg) 2017-01-10 19:00:00 [place] rial [place] Diastolic (mm Hg) 2017-01-10 19:00:00 Mem orial [place] Respitory Rate 2017-01-10 19:00:00 Memori al [place] Systolic (mm Hg) 2017-01-10 18:11:00 [place] Berman Diastolic (mm Hg) 2017-01-10 18:11:00 Husam Berman Respitory Rate 2017-01-10 18:11:00 Spike Calvert BMI Calculated 2017-01-08 21:38:00 Spike Calvert Weight 2017-01-08 21:38:00 [facility] Height 2017-01-08 21:38:00 152.4 cm [facility] Procedures Procedure Date / Time Performing Clinician Source Performed BASIC METABOLIC PANEL (7) 2020-04-09 04:34:00 Sandra Goodwin [facility] MAGNESIUM 2020-04-09 04:34:00 Sandra Felipe [facility] PHOSPHORUS 2020-04-09 04:34:00 [facility] CBC W/PLT COUNT & AUTO 2020-04-09 04:34:00 Sandra Goodwin [facility] HEMODIALYSIS INPATIENT 2020-04-08 00:00:00 Adrian Ching [facility] XR CHEST 1 VIEW 2020-04-07 16:54:00 Maty Otero [facility]/BEDSIDE [facility] 2D ECHO W/ DOPPLER 2020-04-07 12:16:[address] [facility] (CW/PW/COLOR) [facility] HEPATITIS B SURFACE 2020-04-07 11:44:00 Marek Shearer [facility] BASIC METABOLIC PANEL (7) 2020-04-07 05:11:00 Malathi Gibbons [facility] MAGNESIUM 2020-04-07 05:11:00 Malathi Gibbons [facility] PHOSPHORUS 2020-04-07 05:11:00 Malathi Gibbons [facility] B-TYPE NATRIURETIC FACTOR 2020-04-07 05:11:00 Malathi Gibbons [facility] (BNP) [facility] CBC W/PLT COUNT & AUTO 2020-04-07 05:11:00 Changela, Malathi [facility] [id number] 2019-01-21 00:00:00 ENCPL [id number] 2019-01-21 00:00:00 ENCPL [id number] 2019-01-21 00:00:00 ENCPL [id number] 2019-01-21 00:00:00 ENCPL [id number] 2019-01-21 00:00:00 ENCPL [id number] 2019-01-21 00:00:00 ENCPL [id number] 2019-01-21 00:00:00 ENCPL [id number] 2019-01-21 00:00:00 ENCPL [id number] 2019-01-21 00:00:00 ENCPL [id number] 2019-01-21 00:00:00 ENCPL section [facility] Plan of Care Planned Activity Planned Date Details Comments Source Future Scheduled 2020-03-03 INFLUENZA VACCINE (#1) [facility] 00:00:00 [code = INFLUENZA Medical Ce nter VACCINE (#1)] Future Scheduled 2012-10-[address] [facility] - Test 00:00:00 WELLNESS (YEAR 2 or Medical Center FIRST YEAR if no IPPE) [code = MEDICARE ANNUAL WELLNESS (YEAR 2 or FIRST YEAR if no IPPE)] Future Scheduled [address] [facility] - Test 00:00:00 (procedure) [code = Medical Center 57059738] Future Scheduled [address] [facility] - Test 00:00:00 malignant neoplasm of Medica l Center cervix (procedure) [code = 769229232] Future Scheduled [address] [facility] - Test 00:00:00 2-64 YEARS AT RISK (1 Medica l Center of 1 - PPSV23) [code = PNEUMOCOCCAL VACCINE 2-64 YEARS AT RISK (1 of 1 - PPSV23)] Future Scheduled [address] [facility] - Test 00:00:00 malignant neoplasm of Medica l Center breast (procedure) [code = 970876290] Future Scheduled [address] [facility] - Test 00:00:00 malignant neoplasm of [facility] colon (procedure) [code = 998021145] Encounters Start End Encounter Admission Attending Care Care Encounter Source Date/Time Date/Time Type Type Clinicians Facility Department ID 2018-10-08 2018-10-08 Outpatient Isaias Esparzat [id number] [facility] 13:30:00 13:30:00 t [employer] [facility] 2018-09-05 2018-09-05 Outpatient [place] [id number] 11:34:00 11:34:00 t [place] [employer] s - Drive [facility] 2018-08-24 2018-08-24 Outpatient [place] [id number] 08:15:00 08:15:00 t [employer] - [employer] [facility] 2018-07-18 2018-07-18 Outpatient [place]as [place] [id number] 10:54:00 10:54:00 t [employer] [facility] 2018-07-11 2018-07-11 Outpatient Isaias Esparzat [id number] 11:30:00 11:30:00 t [employer]-Art [facility] 2018-06-24 2018-06-30 Outpatient Kamille [facility] [id number] 11:54:00 15:55:00 Adrian Ely 2017-01-08 2017-01-10 [id number] 21:31:00 18:15:00 Tom [place] 90 Results Test Description Test Time Test Comments Results Result Comments Source Basic Metabolic Panel 2020-04-09 06:37:00 Test Item Value Reference Range Interpretation Comme nts Sodium (test code = 133 meq/L 136-145 L 2951-2) Potassium (test code = 5.7 meq/L 3.5-5.1 H 2823-3) Chloride (test code = 97 meq/L 98-107 L 2075-0) CO2 (test code = 2027-9) 23 meq/L 22-29 BUN (test code = 3094-0) 54 mg/dL 7-21 H Creatinine (test code = 6.23 mg/dL 0.57-1.25 H 2160-0) Glucose (test code = 133 mg/dL 70-105 H 2345-7) Calcium (test code = 7.0 mg/dL 8.4-10.2 L 85639-1) EGFR (test code = 10066-8) 8 mL/min/1.73 sq m ESTIMATED GFR IS NOT ACCURATE CREATININE CHELE CLARI IN PREDICTING GLOMERULAR FILT RATION RATE. ESTIMATED GFR IS NOT APPLICAB LE FOR DIALYSIS PATIEN TS. MARTHA (test code = MARTHA) [employer] Mixer Operator ID - CYNTHIA Fisher Lab Interpretation (test Abnormal code = 25115-4) [facility] [id number] 06:37:00 Test Item Value Reference Range Interpretation Comments SODIUM (BEAKER) 133 meq/L 136-145 L (test code = 381) POTASSIUM (BEAKER) 5.7 meq/L 3.5-5.1 H (test code = 379) CHLORIDE (BEAKER) 97 meq/L 98-107 L (test code = 382) CO2 (BEAKER) (test 23 meq/L 22-29 code = 355) BLOOD UREA NITROGEN 54 mg/dL 7-21 H (BEAKER) (test code = 354) CREATININE (BEAKER) 6.23 mg/dL 0.57-1.25 H (test code = 358) GLUCOSE RANDOM 133 mg/dL 70-105 H (BEAKER) (test code = 652) CALCIUM (BEAKER) 7.0 mg/dL 8.4-10.2 L (test code = 697) EGFR (BEAKER) (test 8 mL/min/1.73 ESTIMAT ED GFR IS code = 1092) sq m NOT ACCURATE CREATININE CLEARANCE IN PREDICTING GLOMERULAR FILTRATION RATE . ESTIMATED GFR I S NOT APPLICABLE FOR DIALYSIS PATIEN TS. [employer] Mixer Operator ID - CYNTHIA [id number] 06:27:00 Test Item Value Reference Range Interpretation Comments Magnesium (test code = 1.8 mg/dL 1.6-2.6 42353-3) MARTHA (test code = MARTHA) [employer] Mixer Operator ID - CYNTHIA Fisher Lab Interpretation (test Normal code = 96677-4) [facility] 06:27:00 Test Item Value Reference Range Interpretation Comments Phosphorus (test code = 5.4 mg/dL 2.3-4.7 H 2777-1) MARTHA (test code = MARTHA) [employer] Mixer Operator ID - CYNTHIA M Lab Interpretation (test Abnormal code = 37563-1) [facility] CenterPHOSPHORUS2020-10-08 06:27:00 Test Item Value Reference Range Interpretation Comments PHOSPHORUS (BEAKER) (test code = 5.4 mg/dL 2.3-4.7 H 604) [employer]er Operator ID - CYNTHIA [id number] 06:27:00 Test Item Value Reference Range Interpretation Comments MAGNESIUM (BEAKER) (test code = 1.8 mg/dL 1.6-2.6 627) [employer] Mixer Operator ID - CYNTHIA MCBC with platelet count + automated [id number] 05:31:00 Test Item Value Reference Range Interpretation Comments WBC (test code = 6690-2) 9.5 3.5- 10.5 K/L RBC (test code = 789-8) 3.28 3.93- 5.22 M/L L MCHC (test code = 786-4) 31.3 32.2- 35.5 GM/DL L Hematocrit (test code = 4544-3) 29.1 % 34.1-44.9 L MCV (test code = 787-2) 88.7 fL 79.4-94.8 MCH (test code = 785-6) 27.7 pg 25.6-32.2 RDW (test code = 788-0) 13.7 % 11.7-14.4 Platelets (test code = 777-3) 156 150- 450 K/CU MM MPV (test code = 04667-9) 11.4 fL 9.4-12.3 nRBC (test code = 413) 0 0- 0 /100 WBC % Neutros (test code = 429) 88 % % Lymphs (test code = 430) 4 % % Monos (test code = 431) 7 % % Eos (test code = 432) 0 % % Baso (test code = 437) 0 % # Neutros (test code = 670) 8.33 1.56- 6.13 K/L H # Lymphs (test code = 414) 0.35 1.18- 3.74 K/L L # Monos (test code = 415) 0.70 0.24- 0.36 K/L H # Eos (test code = 416) 0.00 0.04- 0.36 K/L L # Baso (test code = 417) 0.00 0.01- 0.08 K/L L Immature Granulocytes-Relative 1 % 0-1 (test code = 2801) Lab Interpretation (test code = Abnormal 58660-3) [facility] W/PLT COUNT & AUTO [id number] 05:31:00 Test Item Value Reference Range Interpretation Comments WHITE BLOOD CELL COUNT (BEAKER) 9.5 K/ L 3.5-10.5 (test code = 775) RED BLOOD CELL COUNT (BEAKER) 3.28 M/ L 3.93-5.22 L (test code = 761) HEMOGLOBIN (BEAKER) (test code = 9.1 GM/DL 11.2-15.7 L 410) HEMATOCRIT (BEAKER) (test code = 29.1 % 34.1-44.9 L 411) MEAN CORPUSCULAR VOLUME (BEAKER) 88.7 fL 79.4-94.8 (test code = 753) MEAN CORPUSCULAR HEMOGLOBIN 27.7 pg 25.6-32.2 (BEAKER) (test code = 751) MEAN CORPUSCULAR HEMOGLOBIN CONC 31.3 GM/DL 32.2-35.5 L (BEAKER) (test code = 752) RED CELL DISTRIBUTION WIDTH 13.7 % 11.7-14.4 (BEAKER) (test code = 412) PLATELET COUNT (BEAKER) (test 156 K/CU MM 150-450 code = 756) MEAN PLATELET VOLUME (BEAKER) 11.4 fL 9.4-12.3 (test code = 754) NUCLEATED RED BLOOD CELLS 0 /100 WBC 0-0 (BEAKER) (test code = 413) NEUTROPHILS RELATIVE PERCENT 88 % (BEAKER) (test code = 429) LYMPHOCYTES RELATIVE PERCENT 4 % (BEAKER) (test code = 430) MONOCYTES RELATIVE PERCENT 7 % (BEAKER) (test code = 431) EOSINOPHILS RELATIVE PERCENT 0 % (BEAKER) (test code = 432) BASOPHILS RELATIVE PERCENT 0 % (BEAKER) (test code = 437) NEUTROPHILS ABSOLUTE COUNT 8.33 K/ L 1.56-6.13 H (BEAKER) (test code = 670) LYMPHOCYTES ABSOLUTE COUNT 0.35 K/ L 1.18-3.74 L (BEAKER) (test code = 414) MONOCYTES ABSOLUTE COUNT (BEAKER) 0.70 K/ L 0.24-0.36 H (test code = 415) EOSINOPHILS ABSOLUTE COUNT 0.00 K/ L 0.04-0.36 L (BEAKER) (test code = 416) BASOPHILS ABSOLUTE COUNT (BEAKER) 0.00 K/ L 0.01-0.08 L (test code = 417) IMMATURE GRANULOCYTES-RELATIVE 1 % 0-1 PERCENT (BEAKER) (test code = 2801) HEMODIALYSIS [id number] 00:00:00Greer Figueroa RN 04/08/2020 12:00 AMLab Results Component Value Date HEPBSAG Nonreactive 04/07/2020 ]Lab Results Component Value Date GLUCOSE 199 (H) 04/07/2020 CALCIUM 7.1 (L) 04/07/2020 NA 132 (L) 04/07/2020 K 4.5 04/07/2020 CO2 19 (L) 04/07/2020 CL 99 04/07/2020 BUN 74 (H) 04/07/2020 CREATININE 7.98 (H) 04/07/2020 Lab Results Component Value Date WBC 13.9 (H) 04/07/2020 HGB 8.8 (L) 04/07/2020 HCT 27.8 (L) 04/07/2020 MCV 87.7 04/07/2020 PLT 149 (L) 04/07/2020 Verified order and se cured HD consent. Verified patient's identification, full name, MRN and date of . HD treatmentcompleted for 4 hours via left AVF (+) bruit and thrill. Net UF of 3L. Patient stable and no complaints made. Endorsed to nurse accordingly. [facility] Center[facility], 1 VIEW, NON [id number] 17:24:00 Reason for exam:->dyspneaFINAL REPORT EXAM: Chest one view COMPARISON: January 27, 2016 CLINICAL HISTORY:Dyspnea FINDINGS: There is interval removal of the left internal jugular tunneled dialysis catheter.The cardiac size is mildly prominent. There is no evidence of pulmonary consolidation, pleural effusion, or pneumothorax. The regional osseous structures are unremarkable. Signed: Riccardo Jacobseneport Verified Date/Time: 04/07/2020 17:24:41 Reading Location: [facility] C013W Consult Reading Room XR chest 1 view portable / [id number] 17:24:00Interface, External Ris In - 04/07/2020 5:26 PM CDTFINAL REPORT EXAM: Chest one view COMPARISON: January 27, 2016 CLINICAL HISTORY: Dyspnea FINDINGS: There is interval removal of the left internal jugular tunneled dialysis catheter. The cardiac size is mildly prominent. There is no evidence of pulmonary consolidation, pleural effusion, or pneumothorax. The regional osseous structures are unremarkable. Signed: Riccardo Jacobsen MDReport Verified Date/Time: 04/07/2020 17:24:41 Reading Location: [facility] C013W Consult Reading Room [facility] W/Doppler(CW/PW/Color)2020-04-07 14:26:45Ejection FractionSLEH ECHO HEARTLAB MKCKESSON CPACSInterface, External Ris In - 04/07/2020 2:26 PM C DTTransthoracic Echocardiography Report (TTE) Demographics Patient Name NANDO TO Date of Study 04/07/2020 HALIMA Gender Female VisitNumber [id number] Race Unknown Room Number 1062 Number Date of 1960 Referring Malathi Gibbons Physician Age 59 year(s) [employer] Supervisor Payton Lopes, ALEXANDRO, RDCS,RVT,RDMS Interpreting Michael Egan MD Physician Procedure Type of Study TTE procedure:2DECHO W DOPPLER(CW/PW/COLOR) (Routine) Indications:Shortness of breath.Clinical HistoryESRD;CHF;HTN;COPD;SA.Height: 60 inches Weight: 77.56 kg (171 lbs) BSA: 1.75 m^2 BMI: 33.4 kg/m^2HR: 51 bpm BP: 157/74 mmHg Summary 1. [...] Study No prior TTE exam available for comparison. Signature 02:26 PM Findings Left Ventricle The left ventricle is chamber size (by vol index) is normal. No evidence of LV hypertrophy. All of the LV segments contract normally . LVEF by Martell's method of disk assessment is increased (>70%) . Grade 2 diastolic dysfunction (moderately increased LA pressure). Left Atrium LA size is moderately enlarged . Right Josh tricle The right ventricular chamber size and systolic function are within normal limits. Right Atrium RA size is normal. Aortic Valve Normal tri-leaflet Aortic Valve. Mitral Valve Mild MV leaflet thickening. Trace mitral regurgitation. Tricuspid Valve Normal TV structure and function by available views and Doppler. Mild tricuspid regurgitation. Estimated peak systolic PA pressure is 40-45 mmHg (mild pulmonary hypertension) . Pulmonic Valve Normal PV structure and function by limited views and Doppler. Mild pulmonary regurgitation. Aorta Aortic root size (SInus of Valsalva diameter) is normal . Proximal ascending aorta size is normal . Pericardium No significant pericardial effusion is visualized. IVC/SVC/PA/PV/Pleural The estimated RA pressure by IVC dynamics 5-10mmHg . Chambers/Structures Left Atrium LA Volume: 77.18 ml LA Area: 25.18cm^2 LA Vol. Index: 44 ml/m^2 Left Ventricle LVIDd: 4.86 cm LVEDV:110.65 ml LV Septum Diastolic: 1.01 cm LV PW Diastolic: 0.85 cm LVEDV Martell's:72.55 ml LV Length: 8.27 cm LVESV Martell's:16.32 ml LVEF Martell's: 77.5 % LVEDVI: 41 ml/m^2 LVESVI: 9 ml/m^2 LVOT Diameter: 1.67cm Right Atrium RA Area: 16.42 cm^2 Right Ventricle RV Diast Dim.: 4.07 cm TAPSE: 2.34 cm Aorta Ao Root S of Maribeth.: 2.85 cm Ascending Aorta: 3.32 cm Doppler/Quantitative Measurements Mitral Valve MV Peak E-Wave: 1.56 m/s MV Peak A-Wave: 0.55 m/s E/A Ratio: 2.84 Peak Gradient: 9.71 mmHg Deceleration Time: 275.9 msec MV Jarrod. Peak: Tissue Doppler E' Septal Velocity: 0.05 m/s E/E': 21.63 E' Lateral Velocity: 0.07 m/s Aortic Valve Peak Velocity: 1.53 m/s Mean Velocity: 0.94 m/s Peak Gradient: 9.32 mmHg Mean Gradient: 4.21 mmHg AV Area (continuity): 1.63cm^2 AV VTI: 36.11 cm AV DVI: 0.74 LVOT Peak Velocity: 1.02 m/s Peak Gradient: 4.17 mmHg Mean Velocity: 0.75 m/s Mean Gradient: 2.51 mmHg LVOT Diameter: 1.67 cm LVOT VTI: 26.83 cm LVOT Area: 2.19 cm^2 LVOT SV:58.74 ml LVOT CO: 3 l/min LVOT CI: 1.71 l/min/m^2 Tricuspid Valve TR Velocity: 3.01 m/s TR Gradient: 36.29 mmHgGarfield Medical CenterHepatitis B surface antigen 2020-04-07 12:33:00 Test Item Value Reference Range Interpretation Comments HBsAg Screen (test code Nonreactive Nonreactive = 5195-3) MARTHA (test code = MARTHA) Specimen is considered negative for HBsAg. Lab Interpretation (test Normal code = 21545-3) [facility] CenterHEPATITIS B SURFACE [id number] 12:33:00 Test Item Value Reference Range Interpretation Comments HEPATITIS B SURFACE ANTIGEN (2) Nonreactive Nonreactive (BEAKER) (test code = 2585) Specimen is considered negative for HBsAg.BASIC METABOLIC [id number] 07:08:00 Test Item Value Reference Range Interpretation Comments SODIUM (BEAKER) 132 meq/L 136-145 L (test code = 381) POTASSIUM (BEAKER) 4.5 meq/L 3.5-5.1 (test code = 379) CHLORIDE (BEAKER) 99 meq/L 98-107 (test code = 382) CO2 (BEAKER) (test 19 meq/L 22-29 L code = 355) BLOOD UREA NITROGEN 74 mg/dL 7-21 H (BEAKER) (test code = 354) CREATININE (BEAKER) 7.98 mg/dL 0.57-1.25 H (test code = 358) GLUCOSE RANDOM 199 mg/dL 70-105 H (BEAKER) (test code = 652) CALCIUM (BEAKER) 7.1 mg/dL 8.4-10.2 L (test code = 697) EGFR (BEAKER) (test 6 mL/min/1.73 ESTIMAT ED GFR IS code = 1092) sq m NOT ACCURATE CREATININE CLEARANCE IN PREDICTING GLOMERULAR FILTRATION RATE . ESTIMATED GFR I S NOT APPLICABLE FOR DIALYSIS PATIEN TS. [employer] Mixer Operator ID - [id number] 06:58:00 Test Item Value Reference Range Interpretation Comments PHOSPHORUS (BEAKER) (test code = 4.6 mg/dL 2.3-4.7 604) [employer] Mixer Operator ID - [id number] 06:58:00 Test Item Value Reference Range Interpretation Comments MAGNESIUM (BEAKER) (test code = 1.7 mg/dL 1.6-2.6 627) [employer] Mixer Operator ID - EDASICBC W/PLT COUNT & AUTO [id number] 06:13:00 Test Item Value Reference Range Interpretation Comments WHITE BLOOD CELL COUNT (BEAKER) 13.9 K/ L 3.5-10.5 H (test code = 775) RED BLOOD CELL COUNT (BEAKER) 3.17 M/ L 3.93-5.22 L (test code = 761) HEMOGLOBIN (BEAKER) (test code = 8.8 GM/DL 11.2-15.7 L 410) HEMATOCRIT (BEAKER) (test code = 27.8 % 34.1-44.9 L 411) MEAN CORPUSCULAR VOLUME (BEAKER) 87.7 fL 79.4-94.8 (test code = 753) MEAN CORPUSCULAR HEMOGLOBIN 27.8 pg 25.6-32.2 (BEAKER) (test code = 751) MEAN CORPUSCULAR HEMOGLOBIN CONC 31.7 GM/DL 32.2-35.5 L (BEAKER) (test code = 752) RED CELL DISTRIBUTION WIDTH 14.0 % 11.7-14.4 (BEAKER) (test code = 412) PLATELET COUNT (BEAKER) (test 149 K/CU MM 150-450 L code = 756) MEAN PLATELET VOLUME (BEAKER) 11.2 fL 9.4-12.3 (test code = 754) NUCLEATED RED BLOOD CELLS 0 /100 WBC 0-0 (BEAKER) (test code = 413) NEUTROPHILS RELATIVE PERCENT 92 % (BEAKER) (test code = 429) LYMPHOCYTES RELATIVE PERCENT 4 % (BEAKER) (test code = 430) MONOCYTES RELATIVE PERCENT 3 % (BEAKER) (test code = 431) EOSINOPHILS RELATIVE PERCENT 0 % (BEAKER) (test code = 432) BASOPHILS RELATIVE PERCENT 0 % (BEAKER) (test code = 437) NEUTROPHILS ABSOLUTE COUNT 12.77 K/ L 1.56-6.13 H (BEAKER) (test code = 670) LYMPHOCYTES ABSOLUTE COUNT 0.58 K/ L 1.18-3.74 L (BEAKER) (test code = 414) MONOCYTES ABSOLUTE COUNT (BEAKER) 0.42 K/ L 0.24-0.36 H (test code = 415) EOSINOPHILS ABSOLUTE COUNT 0.00 K/ L 0.04-0.36 L (BEAKER) (test code = 416) BASOPHILS ABSOLUTE COUNT (BEAKER) 0.01 K/ L 0.01-0.08 (test code = 417) IMMATURE GRANULOCYTES-RELATIVE 1 % 0-1 PERCENT (BEAKER) (test code = 2801) B-type Natriuretic Factor (BNP)2020-04-07 05:49:00 Test Item Value Reference Range Interpretation Comments BNP (test code = 05495-4) 777 pg/mL 0-100 H MARTHA (test code = MARTHA) [employer] Mixer Operator ID - PIAYA L Lab Interpretation (test Abnormal code = 93514-3) [facility] CenterB-TYPE NATRIURETIC FACTOR (BNP)2020-04-07 05:49:00 Test Item Value Reference Range Interpretation Comments B-TYPE NATRIURETIC PEPTIDE (BEAKER) 777 pg/mL 0-100 H (test code = 700) [employer] Mixer Operator OLE JACKSON LCHEM [id number] 11:16:002.2[facility]ann[facility]M PANEL 2018-06-30 11:16:004.6[facility]annCHEM [id number] 11:16:008[facility]annCHEM CARQB7009-52-33 11:16:0015[facility]annCHEM [id number] 11:16:0014[facility]annCHEM VFEBE1341-78-96 11:16:003.8[facility]annCHEM [id number] 11:16:00 Test Item Value Reference Range Interpretation Comments A/G Ratio (test code = A/G Ratio) 0.8 1 0.7-1.6 [facility] HermannCHEM [id number] 11:16:003.2[facility]annCHEM PANEL 2018-06-30 11:16:007.0[facility]annCHEM [id number] 11:16:00 Test Item Value Reference Range Interpretation Comments B/C Ratio (test code = B/C Ratio) 8 1 6-25 [facility] HermannCHEM [id number] 11:16:000.5[facility]annCHEM PANEL 2018-06-30 11:16:96075Squnhtha HermannCHEM LIHEG0456-93-04 11:16:0088[facility] HermannCHEM JQYZB9431-60-31 11:16:0048[facility]annCHEM JVLLI1612-33-12 11:16:008.0[facility]annCHEM IATYJ8692-07-98 11:16:0013.5[facility]annCHEM IGLEB8045-28-31 11:16:96811Npdssxmp HermannCHEM MSCPT4458-57-72 11:16:0024 [facility]annCHEM HFDUN3828-18-86 11:16:005.89[facility]annCHEM PANEL 2018-06-30 11:16:14794Rlijcbmj HermannCHEM LPKEO4704-27-74 11:16:004.5[facility] QukzmdrRGYLDKYFBO5377-02-32 11:16:00 Test Item Value Reference Range Interpretation Comments MCH (test code = MCH) 27.7 pg 27.0-31.0 [facility] MpclkzjGSOCEAKARQ6521-93-67 11:16:0028.3[facility]annHEMATOLOGY 2018-06-30 11:16:0085.6[facility] ZemssxeYPCSDDGUPM0868-03-10 11:16:0032.3[facility] CxsrefpEDXQZNTYNS2068-66-36 11:16:0016.0[facility] FzgxqqpWBTMXJKCNC8084-72-90 11:16:93862Jlavrvod EokfafcWYUSUFSWHT6421-38-20 11:16:008.5[facility] CCALDVVYDY7256-44-92 11:16:004.4[facility] AyfpjvnTNRVMUVRFV7089-93-68 11:16:00 3.31[facility] FwigxmhOMRIWZQMSV1540-13-52 11:16:009.2[facility]annHEMATOLOGY 2018-06-30 11:16:000.9[facility] MmacdrqEGBSOIGJIN7557-22-14 11:16:001+ *ABN*(06/30/18 5:16 AM)[facility] NcarlogERKYCZSZYQ7938-84-35 11:16:000.1[facility] JuzjqbtBWCZGKQXID3151-51-84 11:16:0020.2[facility] WvqnlnfLKNOHCSUDT3196-13-51 11:16:000.9[facility] DskhwalJMIFGMCROK7329-23-29 11:16:0032.1[facility] MIUKHKRIIO7365-68-11 11:16:001.2[facility] WjtmvesGPQBTSHWNY6720-50-15 11:16:002.0 [facility] EtfrqhuNXBTYRAUXD3645-84-74 11:16:001.4[facility] HermannHEMATOLOGY 2018-06-30 11:16:0045.6[facility] OmriidlKKGBEQQKCT2743-37-99 11:16:00Normal (06/30/18 5:16 AM)[facility] HermannANEMIA IDIVD1818-64-49 14:13:0061[facility] HermannANEMIA VLHRA5731-42-69 14:13:94859Orfatqbl HermannANEMIA APDSA9326-28-53 14:13:41208Qtcbhpik HermannANEMIA IESEU1763-19-02 14:13:0027[facility] ANEMIA LMOHN4471-35-35 14:13:60754Cyzxutcm HermannCHEM HPSLX3863-02-22 11:24:00 3.6[facility]annCHEM LFLTP4696-16-81 11:24:002.2[facility]annCHEM PANEL 2018-06-29 11:24:000.5[facility] HermannCHEM ACAFL3641-42-47 11:24:75013Owhkmori HermannCHEM QUXMC8177-18-06 11:24:0013[facility] HermannCHEM HISCB9232-83-65 11:24:0014[facility]annCHEM UQHGG9027-98-63 11:24:0013[facility]annCHEM IBLLB0280-69-71 11:24:003.0[facility]annCHEM QSRKC5368-03-54 11:24:007.1 [facility]annCHEM LLUWE4939-52-12 11:24:96082Gtgmhyqg HermannCHEM PANEL 2018-06-29 11:24:007.6[facility] HermannCHEM DTJBF6162-36-14 11:24:0025[facility]annCHEM PJOBQ9489-03-89 11:24:004.2[facility] HermannCHEM ABCHB9100-86-65 11:24:82804Chqnyvkc HermannCHEM MHCZI1555-69-38 11:24:0095[facility] HermannCHEM NUUWO1692-69-39 11:24:0030[facility] HermannCHEM VFYWO9121-23-93 11:24:004.15 [facility] HermannCHEM TYESO7612-37-31 11:24:0013.2[facility] HermannCHEM PANEL 2018-06-29 11:24:00 Test Item Value Reference Range Interpretation Comments A/G Ratio (test code = A/G Ratio) 0.7 1 0.7-1.6 [facility] HermannCHEM OUTAU6726-77-49 11:24:004.1[facility] HermannCHEM PANEL 2018-06-29 11:24:00 Test Item Value Reference Range Interpretation Comments B/C Ratio (test code = B/C Ratio) 7 1 6-25 [facility] XrxqqqcAJMVGMWVMH3039-54-36 11:24:008.2[facility] HermannHEMATOLOGY 2018-06-29 11:24:0016.5[facility] UvbmmakAXTHDEADPM3530-75-82 11:24:02147Kmhrzbpf IxsakbaZUQLSELIPY0419-69-46 11:24:0085.3[facility] IvewmaaJXKDAQTLZW0508-36-94 11:24:00 Test Item Value Reference Range Interpretation Comments MCH (test code = MCH) 27.9 pg 27.0-31.0 [facility] ThikqblQSDEGBELSI5300-87-74 11:24:0032.7[facility]annHEMATOLOGY 2018-06-29 11:24:003.40[facility] TcqaxjqZWYKQMGFOV1551-81-21 11:24:009.5[facility] ZyqynmaTXJUKNTVOG5660-12-75 11:24:005.3[facility] NwrzcorJZEGHRRJCB5259-80-00 11:24:0029.0[facility] CpuezieSANTUIQNUL8282-77-93 11:24:001.6[facility] [place] QPGOMEPKHZ9418-95-30 11:24:0020.2[facility] DxsunxaVALPKPSXCB0139-21-67 11:24:00 50.7[facility] UjkwobfTDMBDQQDPF7024-35-91 11:24:0027.3[facility] HermannHEMATOLOGY 2018-06-29 11:24:001.1[facility] BpolgrcKBGPILHWEP2481-31-08 11:24:000.1[facility] OnhvfxoHOOGBDVFHV1691-80-62 11:24:000.7[facility] IejkzpgMYZXBMOYIO7629-42-24 11:24:002.7[facility] YfjcztzPGIPAIQVHM6895-14-93 11:24:001.1[facility] TRLTVJLWPF2582-49-23 11:24:001.5[facility] HermannCHEM JQDBC9680-52-91 11:13:002.2 [facility] HermannCHEM WNVXI3687-77-39 11:13:004.1[facility] HermannCHEM PANEL 2018-06-28 11:13:006[facility] HermannCHEM GMSGU9797-65-58 11:13:0025[facility] HermannCHEM RRDRB1156-03-90 11:13:0094[facility] HermannCHEM HDGRH5206-78-89 11:13:0049[facility]CHE[facility] PZQSV5165-36-52 11:13:004.3[facility]annCHEM NJSTE3227-65-36 11:13:007.38[facility]annCHE[facility] DDOSK4131-28-22 11:13:89933 [facility]CHE[facility] PEBVE0449-88-17 11:13:59679Zmvkhpsu HermannCHEM PANEL 2018-06-28 11:13:003.1[facility]annCHEM MAUZO5686-67-05 11:13:007.6[facility]annCHEM WIDCH1615-64-15 11:13:006.9[facility]annCHEM ALIJZ4428-79-74 11:13:0013[facility]annCHE[facility] CWGVF0557-29-31 11:13:08585Acwqvfoj HermannCHEM ISILC3840-87-73 11:13:0011[facility]annCHE[facility] CQZGW0228-79-97 11:13:000.5 [facility] HermannCHEM TBSDG5024-00-87 11:13:003.8[facility]annCHEM PANEL 2018-06-28 11:13:00 Test Item Value Reference Range Interpretation Comments B/C Ratio (test code = B/C Ratio) 7 1 6-25 [facility] OJLAY1274-94-30 11:13:00 Test Item Value Reference Range Interpretation Comments A/G Ratio (test code = A/G Ratio) 0.8 1 0.7-1.6 [facility] KWCEK0553-36-26 11:13:0012.3[facility]annHEMATOLOGY 2018-06-28 11:13:008.5[facility] JbndrieZXXPSBDQVY4608-11-48 11:13:49265Betsblkm LnzuqhwOZPCEDDUMT3147-42-79 11:13:0016.0[facility] ZlcekihKBMMRLELDQ9312-10-81 11:13:0031.5[facility] FtrylanAUCOPXGOHL9358-08-93 11:13:00 Test Item Value Reference Range Interpretation Comments MCH (test code = MCH) 26.9 pg 27.0-31.0 [facility] MoguyjvWUDBUVKJRG1538-71-35 11:13:0085.6[facility]annHEMATOLOGY 2018-06-28 11:13:0029.4[facility] NhrgkicKCJUWBSGOK2675-72-23 11:13:003.43[facility] WfhhandBUKMNCTDOM7637-59-68 11:13:005.1[facility] SffkpdnJRZAUJUYMO8785-87-76 11:13:009.2[facility] YjfnlhtWDKOHKALXD3458-74-73 11:13:000.1[facility] PFKMCQPWZA0099-04-40 11:13:000.1[facility] RprhdviQKENXZBLTQ1532-88-31 11:13:000.9 [facility] CgzyrpeJDZRHPGNLC2645-67-10 11:13:0017.7[facility]annHEMATOLOGY 2018-06-28 11:13:0052.2[facility] AppyqsvOMCIJIEWCO0669-71-23 11:13:0027.8[facility] AabhacoFXDRNGRHDN6954-84-03 11:13:001.4[facility] FyvkcauUHNASNWMRG8635-21-82 11:13:002.7[facility] UvtcciuYQPRLECSOC4919-89-62 11:13:001.0[facility] IFLCTYMTOR0436-05-90 11:13:001.3[facility] HermannAMINO KKUX5979-63-72 19:12:34516 [facility] HermannAMINO HDKZ0035-38-44 19:12:0040.6[facility] HermannANEMIA STUDY 2018-06-27 19:12:62378Egsdzqxf HermannCHEM ZDGCB7228-88-99 19:12:0029.0[facility] VupuxyfHATFKCGHXM9675-42-21 19:12:00Non-Reactive (06/27/18 1:12 PM)[facility]annMOLECULAR FAEYYDGREE3370-55-89 20:58:00<1.2[facility]annMOLECULAR HPKCBUBCEA6863-25-51 20:58:00Not Detected (06/26/18 2:58 PM)[facility] URINE AND XVJBZ8198-49-30 14:03:002[facility]annURINE AND GPXEF2442-01-26 14:03:00Negative (06/26/18 8:03 AM)[facility] WMAQC9213-88-42 14:03:00Negative (06/26/18 8:03 AM)[facility] IYKWM9778-96-46 14:03:00<1[facility] AND MTBNX5495-61-97 14:03:00Negative (06/26/18 8:03 AM)[facility] EVHBQ0689-04-91 14:03:00 Test Item Value Reference Range Interpretation Comments UA pH (test code = UA pH) 7.5 1 5.0-8.0 [facility] PIWJV1820-97-19 14:03:00Negative *NA*(06/26/18 8:03 AM)[facility] FICMP9941-66-32 14:03:00Light Yellow *NA*(06/26/18 8:03 AM)[facility] NVQWH9098-99-57 14:03:00 Test Item Value Reference Range Interpretation Comments UA Spec Grav (test code = UA Spec 1.004 1 Grav) [facility] OMPYH5544-56-70 14:03:00Clear (06/26/18 8:03 AM) [facility] GnqxqmvPRRZIWFZMY1422-90-66 19:39:0066.7[facility]annIMMUNOLOGY 2018-06-24 19:39:00Positive *ABN*(06/24/18 1:39 PM)[facility]annIMMUNOLOGY 2018-06-24 19:39:00Negative *NA*(06/24/18 1:39 PM)[facility]annIMMUNOLOGY 2018-06-24 19:39:00Negative *NA*(06/24/18 1:39 PM)[facility]annIMMUNOLOGY 2018-06-24 19:39:00Negative *NA*(06/24/18 1:39 PM)[facility]annBACTERIAL - MMWKTKTJ9514-59-79 19:05:00Negative (06/24/18 1:05 PM)[facility]annCARDIAC EUYOGOV9989-51-89 19:05:000.05[facility]annCARDIAC RMTPJDD5244-15-22 19:05:00 1953[facility]annCARDIAC BRYJQUO7330-00-53 19:05:5658208Uenhvluz HermannCHEM PNXJI1061-16-33 19:05:000.1[facility]annCHEM KLQQX1043-14-97 19:05:000.8 [facility] UelvmnoEOWGXWZYYP9190-34-02 19:05:00 Test Item Value Reference Range Interpretation Comments PTT (test code = PTT) 36.4 s 22.9-35.8 [facility] AinaujdRBBZJXKLNY3465-05-71 19:05:00 Test Item Value Reference Range Interpretation Comments PT (test code = PT) 15.4 s 12.0-14.7 [facility] NsahblpABPVTUHQGM8534-28-83 19:05:00 Test Item Value Reference Range Interpretation Comments INR (test code = INR) 1.24 1 0.85-1.17 [facility] NsfopllSCILBZOYVE3207-18-97 19:05:000.1[facility]annIMMUNOLOGY 2018-06-24 19:05:00Negative *NA*(06/24/18 1:05 PM)[facility]annMOLECULAR KTEUJXAAJH7702-35-03 19:05:00Negative (06/24/18 1:05 PM)[facility] MOLECULAR NQWSMBQVOY4484-76-46 19:05:00Flocked COMPOUND MIXER Swab (06/24/18 1:05 PM) [facility]LECULAR RQBNQOXNFS8412-46-43 19:05:00Negative (06/24/18 1:05 PM)[facility]annMOLECULAR ZKMKBYFDPG2766-50-26 19:05:00Negative (06/24/18 1:05 PM)[facility]annPARATHYROID ITFIBZN9696-63-33 19:05:000.92[facility]annPARATHYROID UALECBE5815-88-69 19:05:000.86[facility]annCHEM PANEL 2017-01-10 07:46:0014[facility]annCHEM HODGL1284-61-77 07:46:003.84[facility]annCHEM UMRCI6925-77-14 07:46:008.3[facility]annCHEM UNLQN5607-22-45 07:46:0010.1[facility]annCHEM IWVLV4893-52-43 07:46:0032[facility]annCHEM DHPBF1657-24-35 07:46:21631Vteuvttt HermannCHEM ASQRZ1956-12-24 07:46:004.1 [facility]annCHEM GMQCC3302-02-98 07:46:92103Xgecoohl HermannCHEM PANEL 2017-01-10 07:46:009[facility]annCHEM JSZMB4268-80-89 07:46:0091[facility]annCHEM IBYVI4621-95-50 07:46:002.6[facility] HcwdlqcHCLQDRUKQK4350-48-51 23:45:00Negative *NA*(01/09/17 6:45 PM)[facility]annDRUG DYFYIH0741-84-31 23:00:00See Note *NA*(01/08/17 6:00 PM)[facility]annDR[facility] CNXQHA8010-70-26 23:00:00Negative *NA*(01/08/17 6:00 PM)[facility]annDR[facility] YHCISO8824-87-82 23:00:00Negative *NA*(01/08/17 6:00 PM)[facility]annDR[facility] RSGVUC5916-83-30 23:00:00Negative *NA*(01/08/17 6:00 PM)[facility]annDR[facility] PPLBGY7760-70-26 23:00:00Negative *NA*(01/08/17 6:00 PM)[facility]annDR[facility] TRDIXP9633-51-79 23:00:00Negative *NA*(01/08/17 6:00 PM)[facility]annDR[facility] CYJAAA5436-52-48 23:00:00Negative *NA*(01/08/17 6:00 PM)[facility]annDR[facility] YNOBHA7848-05-23 23:00:00Negative *NA*(01/08/17 6:00 PM)[facility] GEXWZ9837-50-36 23:00:00>=9.0 *ABN*(01/08/17 6:00 PM)[facility] QLQDO3232-33-76 23:00:00<1[facility] NBEYC6373-63-04 23:00:001[facility] [place] [facility] AND JVZEU2900-92-81 23:00:001.004[facility] KCRNH1996-11-36 23:00:00Negative (01/08/17 6:00 PM)[facility] LXFOJ3811-96-03 23:00:00Clear (01/08/17 6:00 PM)[facility] AHNCP2136-32-77 23:00:00 Negative *NA*(01/08/17 6:00 PM)[facility] NHGRR5255-59-29 23:00:00 Negative (01/08/17 6:00 PM)[facility] GINSO1774-03-93 23:00:00 Negative (01/08/17 6:00 PM)[facility] NdgkgipBGVBHUJVYD3357-80-80 22:21:00 Test Item Value Reference Range Interpretation Comments PTT (test code = PTT) 36.2 s 22.9-35.8 [facility] SeywyxtMTILYLBWEX9033-74-53 22:21:001.05[facility]annHEMATOLOGY 2017-01-08 22:21:00 Test Item Value Reference Range Interpretation Comments PT (test code = PT) 13.9 s 12.0-14.7 [facility] NrwukfiZXXASH4480-42-86 22:21:0022[facility] WalowifQWKQPE2583-73-52 22:21:0050[facility] GntacqhBPRIDO3832-51-08 22:21:23046Bvkfxyen HermannLIPIDS 2017-01-08 22:21:81284Dgqbyvzt DbuifvpHNBZNH4737-97-50 22:21:0073[facility] OjrxskvDOBOQZ1768-48-54 22:21:001.99[facility]annSPECIAL EUGMYAMLM4427-43-64 22:21:004.6[facility]annCHEM JHHPR0001-06-61 22:20:003[facility]annCHEM VSBUI3422-02-66 22:20:0014.4[facility] HermannCHEM YESOC1999-85-64 22:20:005.5 [facility]annCHEM FGTNR9588-08-84 22:20:000.6[facility]annCHEM PANEL 2017-01-08 22:20:008[facility]annCHEM VZVSF8646-43-50 22:20:0085[facility]annCHEM TFVKH9669-62-16 22:20:0026[facility] HermannCHEM TKNHN1847-61-46 22:20:0014[facility] HermannCHEM JZOHL9163-03-41 22:20:006.23[facility]annCHEM JPUEY6551-37-80 22:20:003.3[facility]annCHEM TSUGB3352-46-49 22:20:0016 [facility]annCHEM BBDJS0491-33-52 22:20:0024[facility]annCHEM PANEL 2017-01-08 22:20:000.5[facility]annCHEM PBHGA5741-06-44 22:20:008.8[facility] HermannCHEM HOXZM7888-15-19 22:20:76469Lngexwcu HermannCHEM UYOLQ1198-67-81 22:20:36122Iossbswt HermannCHEM QDEKK6873-73-93 22:20:005.4[facility]annCHEM EFURC2738-45-92 22:20:009.1[facility]annCHEM WYFHZ5260-31-49 22:20:62909 [facility]annCHEM HLNKA9033-18-65 22:20:002.4[facility]annHEMATOLOGY 2017-01-08 22:20:0010.5[facility] RffxifsAGRTRGPSZA4196-55-42 22:20:0031.5[facility] LaxixrdDGELIZTIEM0930-17-95 22:20:009.0[facility] RgodpuqSWLZVTATHM1419-64-05 22:20:003.70[facility] IcavfqiKYVAITBSTL0375-78-45 22:20:0085.3[facility] NZBSZMXUGS6580-49-25 22:20:00 Test Item Value Reference Range Interpretation Comments MCH (test code = MCH) 28.5 pg 27.0-31.0 [facility] QhndzyiLMPHWFDYNQ7667-18-27 22:20:0033.4[facility]annHEMATOLOGY 2017-01-08 22:20:0012.9[facility] ZyvwsazUDIFINPXDR3261-23-21 22:20:40952Wfhhlhye ItaqorgPCITFSYNEL2799-54-20 22:20:009.0[facility] MxvmjrmVYUHOJYQVY3886-58-92 22:20:0012.8[facility] HdaximcSFXRQMJMED9131-44-26 22:20:0043.7[facility] TEHRATMQWA6036-18-67 22:20:0040.4[facility] XrirdjaFORKYSEDSO6866-91-62 22:20:00 4.0[facility] GcmuopyFJFDDVMASC1147-35-16 22:20:001.9[facility]annHEMATOLOGY 2017-01-08 22:20:001.2[facility] PafkobpDQJAUJEMBE9020-68-52 22:20:003.7[facility] LozkpsaUALPRFXFWU9985-91-83 22:20:001.2[facility] PckkargHIGLUVOVAE0166-15-26 22:20:000.2[facility] NwaraipLSGBBKANKO3687-87-84 22:20:000.1[facility]
== END 2020-04-07 00:23 | disposition short-term general hospital (02) ==
LOC: ER 16:55
DX: J44.1 Chronic obstructive pulmonary disease with (acute) exacerbation (principal); Z20.828 Contact with and (suspected) exposure to other viral communicable diseases; J81.1 Chronic pulmonary edema; I50.40 Unspecified combined systolic (congestive) and diastolic (congestive) heart failure; I12.0 Hypertensive chronic kidney disease with stage 5 chronic kidney disease or end stage renal disease; N18.6 End stage renal disease; F17.210 Nicotine dependence, cigarettes, uncomplicated; Z95.1 Presence of aortocoronary bypass graft
CPT/HCPCS: 96365; 93005; 87040; 85025; 80048; 36415; 83735; 85610; 80076; 84484; 84145; 83880; 71045; 93971; 96375; 99285; U0003; J2920; J2930

== ENCOUNTER 2020-07-18 14:32 | Emergency (ER) | payer OTHER ==
--- OUTSIDE RECORDS SUMMARY | 2020-07-18 14:34 | XMS REPORT | Clinical Summary ---
:1960 Author Organization [facility] Address [address] [place] [address] Care Team Providers Name Role Phone Jacob Burrows Unavailable Maru Louie MD Primary Care Provider Allergies No Known Allergies Medications Medication Sig Dispensed Refills Start End Date Status Date ARIPiprazole Take 15 mg by 0 Act yenni (ABILIFY) 10 MG mouth daily . tablet omeprazole Take 40 mg by 0 Activ e (PRILOSEC) 20 MG mouth daily . capsule sertraline Take 50 mg by 0 Activ e (ZOLOFT) 50 MG mouth daily. tablet acetaminophen Take 650 mg by 0 A ctive (TYLENOL) 325 MG mouth every 4 tablet (four) hours as needed for Pain. LORazepam Take 1 mg by 0 Active (ATIVAN) 1 MG mouth every 6 tablet (six) hours as needed for Anxiety. isosorbide Take 30 mg by 0 Activ e dinitrate mouth daily . (ISORDIL) 10 MG tablet aspirin 81 MG EC Take 81 mg by 0 Active tablet mouth daily. cloNIDine HCL Take 2 tablets 120 tablet 0 Active (CATAPRES) 0.1 MG (0.2 mg total) by 0 tablet mouth 2 (two) times daily. NIFEdipine Take 1 tablet (60 30 tablet 0 04/14/20 A ctive (ADALAT CC) 60 MG mg total) by 0 21 24 hr tablet mouth daily. budesonide-formot Inhale 2 puffs by 1 Inhaler 3 04/02 Active Dennise (Symbicort) mouth via inhaler 0 21 160-4.5 2 (two) times mcg/actuation daily. inhaler ipratropium-albut Take 3 mLs by 360 mL 2 04/08/20 Active Dennise (DUO-NEB) nebulization 0 21 0.5 mg-3 mg(2.5 every 6 (six) mg base)/3 mL hours as needed nebulizer for Wheezing for solution up to 360 days. miscellaneous Dispense one 1 each 0 Act yenni medical supply nebulizer machine 0 Misc with facemask and other necessary supplies. hydrOXYzine Take 50 mg by 0 04/07/20 Disc ontinued (VISTARIL) 50 MG mouth 3 (three) 20 (MD capsule times daily as Disco ntinued) needed for Anxiety. senna-docusate Take 1 tablet by 30 tablet 0 04/13/20 Discontinued (SENOKOT S) mouth nightly. 6 20 (Er ror) 8.6-50 mg per tablet ertapenem Inject 0.5 g 0 04/13/20 Discont inued (INVanz) IVPB intravenously 6 20 (E rror) daily. cloNIDine HCl Take 0.2 mg by 0 04/13/20 D iscontinued (CATAPRES) 0.1 MG mouth daily . 20 (Reorder) tablet acetaminophen-cod Take 1 tablet by 0 04/13 Discontinued eine (TYLENOL #3) mouth every 4 20 (Error) 300-30 mg per (four) hours as tablet needed for Pain. carvediloL Take 12.5 mg by 0 04/13/20 Dis continued (COREG) 12.5 MG mouth 2 (two) 20 (Stop Taking at tablet times daily with Dis charge) breakfast and dinner. ramipriL (ALTACE) Take 5 mg by 0 04/13/20 Discontinued 5 MG capsule mouth daily. 20 (Sto p Taking at Discharge) predniSONE Take 10 mg by 0 04/13/20 Disco ntinued (DELTASONE) 10 MG mouth 2 (two) 20 (Reorder) tablet times daily. predniSONE Take 4 tablets 30 tablet 0 04/25/20 Expi red (DELTASONE) 10 MG (40 mg total) by 0 20 tablet mouth daily for 3 days, THEN 3 tablets (30 mg total) daily for 3 days, THEN 2 tablets (20 mg total) daily for 3 days, THEN 1 tablet (10 mg total) daily for 3 days. Active Problems Problem Noted Date Shortness of breath 04/07/2020 Leucocytosis 04/07/2020 COPD (chronic obstructive pulmonary disease) 0 Atrial myxoma 02/06/2016 ESRD on dialysis 02/06/2016 Hyponatremia 02/06/2016 Metabolic bone disease 02/06/2016 Hypertension 02/06/2016 Catheter-related bloodstream infection (CRBSI) 016 Infective endocarditis 02/06/2016 Anemia of chronic disease 02/06/2016 Depression 02/06/2016 Bacteremia 01/16/2016 Encounters Date Type Specialty Care Team Description 04/16/2020 Telephone Cardiology Fifi Floyd, Appointment RN 04/10/2020 Orders Only General Internal Medicine 04/07/2020 - Hospital Encounter Cardiology Malathi Gibbons ESRD on dialysis (HCC) (Primary Dx); 04/13/2020 MD Ronan COPD exacerbation ([facility]); Maty Otero Shortness of breath; MD Sahil Essential hypertension; Sandra Lorenzana Acute on ronic diastolic heart failure (HCC) MD Maria Fernanda 04/07/2020 Travel after 07/18/2019 Family History Medical History Relation Name Comments Heart disease Mother Relation Name Status Comments Mother Social History Tobacco Use Types Packs/Day Years Used Date Current Some Day Smoker 0.5 20 Smokeless Tobacco: Former User Tobacco Cessation: Ready to Quit: No; Co unseling Given: No Alcohol Use Drinks/Week oz/Week Comments No Sex Assigned at Date Recorded Not on file Last Filed Vital Signs Vital Sign Reading Time Taken Comments Blood Pressure 111/56 04/13/2020 12:15 PM CDT Pulse 54 04/13/2020 12:15 PM CDT Temperature 35.8 C (96.4 F) 04/13/2020 12:15 PM CDT Respiratory Rate 18 04/13/2020 12:15 PM CDT Oxygen Saturation 98% 04/13/2020 12:15 PM CDT Inhaled Oxygen Concentration 21% 04/12/2020 9:33 PM CDT Weight 72.3 kg (159 lb 4.8 oz) 04/13/2020 9:10 AM CDT Height 152.4 cm (5') 04/07/2020 1:50 AM CDT Body Mass Index 31.11 04/07/2020 1:50 AM CDT Plan of Treatment Health Maintenance Due Date Last Done Comments BREAST CANCER SCREENING 1960 COLON CANCER SCREENING COLONOSCOPY 1960 PNEUMOCOCCAL VACCINE 0-64 YRS (1 of 1 - PPSV23) 1965 01/10/2017 CERVICAL CANCER SCREENING PAP ONLY (Age 21-65) 1980 LIPID PANEL 2004 MEDICARE ANNUAL WELLNESS (YEAR 2 or FIRST YEAR if no 10/02/2012 IPPE) INFLUENZA VACCINE (#1) 2020 Implants Implanted Type Area Director Of Planning Device Shelf Model / Identifier Expiration Serial / Lot Date Eulalio Hemshld Dbl Jarrod 2.0x6.0in [id number] - [id number] Graft/Pat GETINGE 01/30/2019 [id number] / Implanted: Qty: 1 on 01/25/2016 by Sherif Gallo MD at [facility] IND:MAQUET:CV / [id number] Description:EXCISION OF RIGHT ATRIAL WAL L MASS AND REPAIR WITH VASCULAR PROSTHETIC PATCH Procedures Procedure Name Priority Date/Time Associated Comments Diagnosis CBC W/PLT COUNT & Routine 04/12/2020 4:59 Result s for this AUTO DIFFERENTIAL AM CDT procedure are in the results section. BASIC METABOLIC PANEL Routine 04/12/2020 4:59 Re sults for this (7) AM CDT procedure are i n the results section. CBC W/PLT COUNT & Routine 04/12/2020 4:59 Result s for this AUTO DIFFERENTIAL AM CDT procedure are in the results section. HEMODIALYSIS Routine 04/11/2020 1:08 INPATIENT PM CDT BASIC METABOLIC PANEL Routine 04/11/2020 4:28 Re sults for this (7) AM CDT procedure are i n the results section. ECG 12-LEAD Routine 04/10/2020 10:33 AM CDT Procedure Note - Interface, External Ris In - 04/10/2020 10:41 AM CDT Ventricular Rate 53 BPM Atrial Rate 53 BPM P-R Interval 162 ms QRS Duration 78 ms Q-T Interval 492 ms QTC Calculation(Bazett) 461 ms P [place] 72 degrees R [place] 18 degrees T [place] 83 degrees Sinus bradycardia with Dorinda ture atrial complexes Nonspecific T wave abnormali ty Prolonged QT Abnormal ECG When compared with ECG of 16:51, Premature atrial complexes a re now Present Vent. rate has decreased BY 31 BPM ECG 12-LEAD Routine 04/10/2020 10:33 AM CDT Resu lts for this procedure are i n the results section . BASIC METABOLIC PANEL (7) Routine 04/10/2020 4:36 AM CDT Results for this procedure are i n the results section . HEMODIALYSIS INPATIENT Routine 04/09/2020 8:10 PM CDT Results for this procedure are i n the results section . CBC W/PLT COUNT & AUTO Routine 04/09/2020 4:34 AM CDT Results for this DIFFERENTIAL procedure are i n the results section . PHOSPHORUS Routine 04/09/2020 4:34 AM CDT Resu lts for this procedure are i n the results section . MAGNESIUM Routine 04/09/2020 4:34 AM CDT Resu lts for this procedure are i n the results section . BASIC METABOLIC PANEL (7) Routine 04/09/2020 4:34 AM CDT Results for this procedure are i n the results section . CBC W/PLT COUNT & AUTO Routine 04/09/2020 4:34 AM CDT Results for this DIFFERENTIAL procedure are i n the results section . HEMODIALYSIS INPATIENT Routine 04/08/2020 12:00 AM CDT Results for this procedure are i n the results section . XR CHEST 1 VIEW IDRIS 04/07/2020 4:54 PM CDT R esults for this PORTABLE/BEDSIDE procedure a re in the results section . 2D ECHO W/ DOPPLER Routine 04/07/2020 12:16 PM CDT Results for this (CW/PW/COLOR) procedure are in the results section . HEPATITIS B SURFACE ANTIGEN Routine 04/07/2020 11:44 AM CDT Results for this procedure are i n the results section . CBC W/PLT COUNT & AUTO Routine 04/07/2020 5:11 AM CDT Results for this DIFFERENTIAL procedure are i n the results section . B-TYPE NATRIURETIC FACTOR Routine 04/07/2020 5:11 AM CDT Results for this (BNP) procedure are i n the results section . CBC W/PLT COUNT & AUTO Routine 04/07/2020 5:11 AM CDT Results for this DIFFERENTIAL procedure are i n the results section . PHOSPHORUS Routine 04/07/2020 5:11 AM CDT Resu lts for this procedure are i n the results section . MAGNESIUM Routine 04/07/2020 5:11 AM CDT Resu lts for this procedure are i n the results section . BASIC METABOLIC PANEL (7) Routine 04/07/2020 5:11 AM CDT Results for this procedure are i n the results section . after 07/18/2019 Results CBC with platelet count + automated diff (04/12/2020 4:59 AM CDT)Only the most recent of3 resultswithin the time period is included. Pathologist Sig nature WBC 17.5 (H) 3.5 - 10.5 [facility] RBC 3.41 (L) 3.93 - 5.22 [facility] M/L [facility] Hemoglobin 9.4 (L) 11.2 - 15.7 [facility] GM/DL [facility] Hematocrit 29.4 (L) 34.1 - 44.9 % [facility] MCV 86.2 79.4 - 94.8 fL [facility] MCH 27.6 25.6 - 32.2 pg [facility] MCHC 32.0 (L) 32.2 - 35.5 [facility] GM/[facility] RDW 14.2 11.7 - 14.4 % [facility] Platelets 198 150 - 450 K/CU [facility] MPV 11.0 9.4 - 12.3 fL [facility] nRBC 0 0 - 0 /100 WBC [facility] % Neutros 90 % [facility] % Lymphs 3 % [facility] % Monos 7 % [facility] % Eos 0 % [facility] % Baso 0 % [facility] # Neutros 15.67 (H) 1.56 - 6.13 [facility] # Lymphs 0.49 (L) 1.18 - 3.74 [facility] # Monos 1.17 (H) 0.24 - 0.[address] [facility] # Eos 0.00 (L) 0.04 - 0.36 [facility] # Baso 0.02 0.01 - 0.08 [facility] Immature 1 0 - 1 % [facility] Granulocytes-Relativ [facility] e [place] Specimen Blood Performing Organization Address City/[facility]/Zipcode Phone Number [facility] [address] [place] [address] CENTER Basic Metabolic Panel (04/12/2020 4:59 AM CDT)Only the most recent of5 results within the time period is included. Sodium 134 (L) 136 - 145 meq/L [facility] Potassium 4.3 3.5 - 5.1 meq/L [facility] Chloride 96 (L) 98 - 107 meq/L [facility] CO2 26 22 - 29 meq/L [facility] BUN 31 (H) 7 - 21 mg/dL [facility] Creatinine 3.76 (H) 0.57 - 1.25 [facility] mg/dL [facility] Glucose 166 (H) 70 - 105 mg/dL [facility] Calcium 7.7 (L) 8.4 - 10.2 [facility] mg/dL [facility] EGFR 15Comment: ESTIMATED mL/min/1.73 sq [facility] GFR IS NOT m [facility] ACCURATE [place] CREATININE CLEARANCE IN PREDICTING GLOMERULAR FILTRATION RATE. ESTIMATED GFR IS NOT APPLICABLE FOR DIALYSIS PATIENTS. Specimen Blood Narrative Performed At Leisure [employer] Professor ID - PIAYA L [facility] Performing Organization Address City/[facility]/Zipcode Phone Number [facility] [address] [place] [address] [place] ECG 12 lead (04/10/2020 10:33 AM CDT) Specimen Narrative Performed At Ventricular Rate 53 BPM GE MUSE Atrial Rate 53 BPM P-R Interval 162 ms QRS Duration 78 ms Q-T Interval 492 ms QTC Calculation(Bazett) 461 ms P [place] 72 degrees R [place] 18 degrees T [place] 83 degrees Sinus bradycardia with Premature atrial complexes Nonspecific T wave abnormality Prolonged QT Abnormal ECG When compared with ECG of 26-JAN-2016 16 :51, Premature atrial complexes are now Prese nt Vent. rate has decreased BY 31 BPM Confirmed by MD MANUEL JOSEPH P ([id number]) on 0 3:21:20 PM Procedure Note Interface, External Ris In - 04/10/2020 3:21 PM CDT Ventricular Rate 53 BPM Atrial Rate 53 BPM P-R Interval 162 ms QRS Duration 78 ms Q-T Interval 492 ms QTC Calculation(Bazett) 461 ms P [place] 72 degrees R [place] 18 degrees T [place] 83 degrees Sinus bradycardia with Premature atrial complexes Nonspecific T wave abnormality Prolonged QT Abnormal ECG When compared with ECG of 26-JAN-2016 16 :51, Premature atrial complexes are now Prese nt Vent. rate has decreased BY 31 BPM Confirmed by MD MANUEL JOSEPH P ([id number]) on 04/10/2020 3:21:20 PM Performing Organization Address City/State/[facility] Phone Number HIMANSHU ANDERSEN HEMODIALYSIS INPATIENT (04/09/2020 8:10 PM CDT) Narrative Performed At Wanda Yanez RN 04/09/2020 8:38 PM Procedure tolerated well. Vital signs st able. HD duration 4 hours UF 3.8 L via l eft upper arm AV Fistula. Lab Results Component Value Date WBC 9.5 04/09/2020 HGB 9.1 (L) 04/09/2020 HCT 29.1 (L) 04/09/2020 MCV 88.7 04/09/2020 PLT 156 04/09/2020 Lab Results Component Value Date GLUCOSE 133 (H) 04/09/2020 CALCIUM 7.0 (L) 04/09/2020 NA 133 (L) 04/09/2020 K 5.7 (H) 04/09/2020 CO2 23 04/09/2020 CL 97 (L) 04/09/2020 BUN 54 (H) 04/09/2020 CREATININE 6.23 (H) 04/09/2020 No components found for: HEPSAG Vitals: 04/09/202014 BP: 179/83 Pulse: 54 Resp: 21 Temp: SpO2: 99% Phosphorus (04/09/2020 4:34 AM CDT)Only the most recent of2 resultswithin the time period is included. Pathologist Sig nature Phosphorus 5.4 (H) 2.3 - 4.7 mg/dL [facility] Specimen Blood Narrative Performed At Leisure Studies Professor ID - [facility] Performing Organization Address [facility] Phone Number [phone] CENTER Magnesium (04/09/2020 4:34 AM CDT)Only the most recent of2 resultswithin the time period is included. Pathologist Sig nature Magnesium 1.8 1.6 - 2.6 mg/dL [facility] Specimen Blood Narrative Performed At Leisure [employer] Professor ID - [facility] Performing Organization Address [facility] Hospital[facility] [address] [place] HEMODIALYSIS INPATIENT (04/08/2020 12:00 AM CDT) Narrative [...] Specimen Narrative Performed At FINAL REPORT GE [employer] EXAM: Chest one view COMPARISON: January 27, 2016 CLINICAL HISTORY: Dyspnea FINDINGS: There is interval removal of t he left internal jugular tunneled dialysis catheter. The cardiac size is mildly prominent. There is no evidence of pulmonary consol idation, pleural effusion, or pneumothorax. The regional osseous struc tures are unremarkable. Signed: Riccardo Jacobsen MD Report Verified Date/Time: 04/07/2020 17:24:41 Reading Location: [address] Consult R eading Room Procedure Note Interface, External Ris In - [...] Verified Date/Time: 04/07/2020 1 7:24:41 Reading Location: [address] Consult R eading Room Performing Organization Address City/State/Zipcode Phone Number [employer] 2D Echo W/Doppler(CW/PW/Color) (04/07/2020 12:16 PM CDT) Pathologist Sig nature Ejection Fraction [facility]ACS Specimen Narrative Performed At Transthoracic Echocardiography Report (T TE) [facility] Demographics Patient Name NANDO TO Date of Study 04/07/2020 HALIMA Gender Female Visit Number [id number] Race Unknown Room Number 1062 Number Date of 1960 Referring Malathi Gibbons Physician Age 59 year(s) Wire Stockkeeper Payton Lopes, NB, RDCS,RVT,RDMS Interpreting Michael Egan MD Physician Procedure [...] is chamber size (by vol index) is n ormal. No evidence of LV hypertrophy. All of the LV segments contract normally . LVEF by Martell's method of disk assessment is increased (>70%) . Grade 2 diastolic dysfunction (moderately increa sed LA p ressure). Left Atrium LA size is moderately enlarged . Right Ventricle The right ventricular chamber size and systolic [...] root size (SInus of Valsalva diameter) is norm al . Proximal ascending aorta size is normal [...] 1.67 cm Right Atrium RA Area: 16.42 cm^ 2 Right Ventricle RV Diast Dim.: 4.07 cm [...] ena 04/07/2020 HALIMA Gender Female Visit Number [id number] Race Unknown Room Numb er 1062 Number [...] Study No prior TTE exam available for [facility]. Signature Findings Left Ventricle The left [...] TR Gradient: 36.29 mmHg Performing Organization Address City/[facility] Phone Number [facility] Hepatitis B surface antigen (04/07/2020 11:44 AM CDT) Pathologist Sig nature HBsAg Screen Nonreactive Nonreactive [facility] Specimen Blood Narrative Performed At Specimen is considered negative for HBsAg. [facility] Performing Organization Address City/[facility]/Zipcode Phone Number [address] [address] CENTER B-type Natriuretic Factor (BNP) (04/07/2020 5:11 AM CDT) Pathologist Sig nature BNP 777 (H) 0 - 100 pg/mL [facility] Specimen Blood Narrative Performed At Leisure [employer] Professor OLE - RENETTA Smith [facility] Performing Organization Address City/State/Zipcode Phone Number [address] [address] CENTER after 07/18/2019 Insurance Payer Benefit Plan / Subscriber ID Effective Phone Address T ype Group Dates MEDICARE MEDICARE A B [id number] 2011-Prese Medicare nt [employer] [place] [id number] 2015-Prese MEDICARE [place] nt CARE MEDICAID - MEDICAID [id number] 2019-Prese Medi caid MEDICAID [place] [employer] nt Non-Co ntracte CARE d MEDICAID MEDICAID OF [id number] 2013-Prese Med icaid [place] nt Advance Directives For more information, please contact: [phone] Code Status Date Activated Date Inactivated Comments Full Code 04/07/2020 3:49 AM 04/13/2020 5:44 PM This code status was determined by: Patient Full Code 01/23/2016 1:38 PM 02/06/2016 8:06 PM This code status was determined by: Patient Full Code 01/18/2016 10:03 AM 01/18/2016 10:53 AM This code status was determined by: Patient Full Code 01/16/2016 3:39 AM 01/18/2016 10:03 AM This code status was determined by: Patient
--- OUTSIDE RECORDS SUMMARY | 2020-07-18 14:36 | XMS REPORT | Continuity of Care Document ---
:1960 Author Organization [employer] Care Team Providers Name Role Phone [employer] Unavailable Un available Problems Problem Status Onset Classification Date Comments Sourc e Date Reported Hypertensive heart 07/12/19 01/17/2019 [facility] and chronic kidney 19 edical disease with heart C enter failure and with stage 5 chronic kidney disease, or end stage renal disease KIDNEY FAILURE Active 06/24/20 Tukcer forrester [address] [place] [address] ISCHEMIC STROKE Active 01/09/[address] NUMBNESS Active 01/09/[address] Methicillin Active 06/11/20 Problem 01/17/2019 06/11/09 Nares- MRSA by PCR [facility] resistant 09 Problem added by Dis cern Expert. Medical Staphylococcus Terri nava, aureus (organism) [facility] Cerebral 01/13/2017 infarction, [facility] End stage renal 01/17/2019 [facility] Chronic diastolic 01/17/2019 [facility] [place] (congestive) heart edical failure Center Acidosis 01/17/2019 [facility] Unspecified 01/17/2019 Madelaine king protein-calorie Medi shreya malnutrition Center Cocaine use, 01/17/2019 Niels as unspecified, Medical uncomplicated Center Patient's 01/17/2019 [facility] noncompliance with edical other [facility] Center treatment and regimen Nicotine 01/17/2019 [facility] dependence, Medical cigarettes, Center uncomplicated Bipolar disorder, 01/17/2019 [facility] unspecified Medical Center Chronic 01/17/2019 [facility] obstructive Medical pulmonary disease, C enter unspecified Chronic viral 01/17/2019 Tucker forrester hepatitis C [facility] Center Hyperkalemia 01/17/2019 Niels as Medical Center Hypertensive 01/17/2019 Niels as urgency Medical Center Anemia in chronic 01/17/2019 [facility] kidney disease Medic al Center Patient's 01/17/2019 [facility] noncompliance with edical renal dialysis Terri nava Vascular dementia 01/17/2019 [facility] without behavioral edical disturbance Center Dementia in other 01/17/2019 [facility] diseases Medical classified Center elsewhere without behavioral disturbance Hepatic failure, 01/17/2019 [facility] unspecified Medical without coma Center 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 Bipolar disorder Resolved Problem 01/17/2019 [facility] (disorder) Medical [place] Chronic kidney Resolved Problem 01/17/2019 [place] disease (disorder) M edical Center,[facility] Chronic Resolved Problem 01/17/2019 [facility] obstructive lung Med ical disease (disorder) C enter,[facility] Cerebrovascular Resolved Problem 01/17/2019 [facility] accident Medical (disorder) Center,[facility] Dialysis finding Resolved Problem 01/17/2019 started [facility] (finding) approx Medical 2014 Center,[facility] Disease of Resolved Problem 01/17/2019 [facility] gallbladder Medical (disorder) Center,[facility] Acute myocardial Resolved Problem 01/17/2019 [facility] infarction Medical (disorder) Center,[facility] Viral hepatitis C Resolved Problem 01/17/2019 [facility] (disorder) Medical [place] Hypertensive Resolved Problem 01/17/2019 [place] as disorder, systemic edical arterial Center, (disorder) [facility] Simple obesity Active Problem 01/17/2019 [facility] [place]as (disorder) Medical [place],[facility] Smoker (finding) Resolved Problem 01/17/2019 [facility] CEREBRAL Active INFARCTION, [facility] UNSPECIFIED [facility] ILLNESS, Active UNSPECIFIED [facility] Medications Medication Details Route Status Patient [...] No Longer [place] as as: Norvasc) Active 2017 [facility] Insulin regular 60 units) Inactive [place] WASTE: F/P - 2018 Medical Black; E - Center Municipal Trash Bin Stable for 28 days at room temperature Expires in days from D ate Glucagon 1 mg, Route: Inactive [place] IM, Drug form: 2018 Medical PDR/INJ, PRN, Center Dosing Weight 45.085, kg, PRN Blood Glucose Results, Start date: 06/25/18 6:22:00 PHARMACY SCHEDULER, Duration: 30 day, Stop date: 07/25/18 6:21:00 PHARMACY SCHEDULER Dextrose 50% 12.5 gm, 25 mL, Inactive [place] Syringe Route: IVP, 2017 Medical Drug Form: INJ, [place] Dosing Weight 45.085, kg, PRN, PRN Blood Glucose Results, Start date: 06/25/18 6:22:00 PHARMACY SCHEDULER, Duration: 30 day, Stop date: 07/25/18 6:21:00 PHARMACY SCHEDULER NIFEdipine 30 Notes: (Same Inactive [place] mg oral tablet, as: Adalat CC, 2017 edical extended Procardia XL) Center release Give on empty stomach. Take 1 hour before or 2 hours after meal; "Avoid grapefruit and grapefruit juice". Do not crush Saline Flush Notes: (Same No Longer [place] 0.9% as: BD Active 2017 [facility] Posiflush) [place] sennosides, CARE HOME Notes: (Same No Longer H [place] as: Senokot) Active 2018 [facility] NIFEdipine 30 Notes: (Same Inactive [place] mg oral tablet, as: Adalat CC, 2017 edical extended Procardia XL) Center release Give on empty stomach. Take 1 hour before or 2 hours after meal; "Avoid grapefruit and grapefruit juice". Do not crush Docusate Notes: (Same No Longer [place] as: Colace) Active 2017 [facility] heparin sodium, Notes: porcine No Longer [place] porcine 2500 heparin Active 2017 [facility] UNT/ML [place] Injectable Solution Cardene 40 mg Notes: Same as: No Longer [place] in NS 200 mL Cardene Active 2017 Medical (Titrate.) IV Concentration: Francisco ter 40 mg (0.2 mg /1 ml ) sevelamer 800 mg = 1 tab, No Longer [place] carbonate 800 PO, 0 Refill(s) Active 2017 [place] d[place] MG Oral Tablet Center [[facility]] amLODIPine 10 10 mg = 1 tab, [...] [place] UNT/MG Topical as:Mycostatin, Active 2017 [place] d[place] Powder Nilstat) For Center external use only. atorvastatin Notes: (Same No Longer As: Lipitor) Active 2016 [facility] aspirin 81 mg 81 mg = 1 tab, Active tablet, enteric PO, Daily, # 30 2017 [facility] coated tab, 0 City Refill(s) atorvastatin 10 10 mg = 1 tab, Active H mg oral tablet PO, Bedtime, # 2017 [place] morial 30 tab, 0 City Refill(s) heparin Notes: porcine No Longer heparin Active 2016 [facility] gabapentin 100 Notes: (Same No Longer [place] Oral Capsule as: Neurontin) Active 2016 [facility] Saline Flush 10 ml, Route: Inactive 0.9% IVP, Drug Form: [address] [place] [address] INJ, Dosing City Weight 76.007, kg, Q12H, Start date: 01/08/17 21:00:00 CDT, Duration: 30 day, Stop date: 02/07/17 9:00:00 CDT Hydroxyzine Notes: (Same No Longer as: Atarax) Active 2016 [facility] Avoid alcohol. [facility] ARIPiprazole Notes: No Longer Non-Formulary Active [address] [place] [address] Drug. (Same City as: Abilify) Amlodipine Notes: (Same No Longer as: Norvasc) Active 2016 [facility] Sertraline Notes: (Same No Longer as: Zoloft) Active 2016 [facility] Clonidine Notes: (Same No Longer Hydrochloride As: Catapres) Active 2016 [place] rial 0.2 MG Oral [facility] Tablet 200 ACTUAT Notes: SEE RT No Longer Albuterol 0.09 DOCUMENTATION Active 2016 Mem orial MG/ACTUAT (Same as: [facility] Metered Dose Proventil) Inhaler [ProAir HFA] Hydralazine Notes: (Same No Longer as: Apresoline) Active 2016 [facility] Push over 5 [facility] minutes Clonidine 0.1 mg = 0.5 Active Hydrochloride tab, PO, TID, 0 2016 [place]ial 0.2 MG Oral Refill(s) [facility] Tablet ARIPiprazole 10 10 mg = 1 tab, Active H mg oral tablet PO, Daily, # 30 2016 [facility] tab, 0 [facility] Refill(s) Amlodipine 10 mg, PO, Active Daily, 0 2016 [facility] Refill(s) [facility] sertraline 50 50 mg = 1 tab, Active mg oral tablet PO, Daily, 0 2016 [place] rial Refill(s) [facility] gabapentin 100 300 mg = 3 cap, Active H MG Oral Capsule PO, Bedtime, 0 2016 [facility] Refill(s) [facility] Hydroxyzine 50 mg, PO, TID, Active 0 Refill(s) 2016 [facility] Enoxaparin Notes: (Same No Longer as: Lovenox) Active 2016 [facility] aspirin 81 mg Notes: Do not No Longer tablet, enteric crush or chew. Active 2016 [facility] coated (Same As: [facility] Ecotrin) Famotidine Notes: (Same No Longer as: Pepcid) Active 2016 [facility] Sodium Chloride 25 mL, Route: No Longer 0.9% IV IVP, Start Active [address] [place] [address] date: 01/08/17 [facility] 16:48:00 CDT, Duration: 30 day, Stop date: 02/07/17 16:47:00 CDT, PRN Line Flush BD Normal Notes: (Same No Longer Saline Flush as: BD Active 2016 [facility] Posiflush) [facility] BD Normal Notes: (Same No Longer Saline Flush as: BD Active 2016 [facility] Posiflush) [facility] Saline Flush 10 ml, Route: Inactive 0.9% IVP, Drug Form: 2016 [facility] INJ, Dosing [facility] Weight 76.007, kg, PRN, PRN Line [...] Jim[place] Madelaine king 13-valent vaccine 7 deltoid [facility] tetanus-diphtheri Right completed Katya [facility] a toxoids 9 [facility] Results Order Name Results Value Reference Date Interpretation Comments Rula rce Range CHEM PANEL Magnesium 2.2 1.8 - 2.4 06/30 [facility] [address] [place] [address] CHEM PANEL Phosphorus 4.6 2.5 - 4.5 06/[address] CHEM PANEL eGFR 8 06/30 Result Comment: [...] PANEL ALT 15 0 - 65 06/[address] CHEM PANEL AST 14 0 - 37 06/30 [facility]2017 [facility] CHEM PANEL Globulin 3.8 2.7 - 4.2 06/[address] CHEM PANEL A/G Ratio 0.8 0.7 - 1.6 06/[address] CHEM PANEL Albumin Lvl 3.2 3.5 - 5.0 06/30 [facility] CHEM PANEL Total 7.0 6.4 - 8.4 06/30 [facility] Protein [facility] CHEM PANEL B/C Ratio 8 6 - 25 06/[address] CHEM PANEL Bili Total 0.5 0.2 - 1.3 06/[address] CHEM PANEL Alk Phos 130 39 - 136 06/[address] CHEM PANEL Glucose Lvl 88 70 - 99 06/[address] CHEM PANEL BUN 48 7 - 22 06/[address] CHEM PANEL Calcium Lvl 8.0 8.5 - 10.5 06/30 [facility] CHEM PANEL AGAP 13.5 10.0 - 06/30 [place] 20.0 [facility] CHEM PANEL Chloride Lvl 104 95 - 109 06/30 [facility] CHEM PANEL CO2 24 24 - 32 06/[address] CHEM PANEL Creatinine 5.89 0.50 - 06/30 [place] Lvl 1.40 [facility] CHEM PANEL Sodium Lvl 137 135 - 145 06/[address] CHEM PANEL Potassium 4.5 3.5 - 5.1 06/30 [place] Lvl /2017 [facility] HEMATOLOGY MCH 27.7 27.0 - 06/30 [place] 31.0 [facility] HEMATOLOGY Hct 28.3 36.0 - 06/30 [place] 48.0 [facility] HEMATOLOGY MCV 85.6 80.0 - 06/30 [place] 98.0 [facility] HEMATOLOGY MCHC 32.3 32.0 - 06/30 [place] 36.0 [facility] HEMATOLOGY RDW 16.0 11.5 - 06/30 [place] 14.5 /2017 [facility] HEMATOLOGY Platelet 141 133 - 450 06/30 [facility]2017 [facility] HEMATOLOGY MPV 8.5 7.4 - 10.4 06/30 [facility] [address] [place] [address] HEMATOLOGY WBC 4.4 3.7 - 10.4 06/30 [facility] /[address] [place] [address] HEMATOLOGY RBC 3.31 4.20 - 06/30 [place] 5.40 [facility] HEMATOLOGY Hgb 9.2 12.0 - 06/30 [place] 16.0 [facility] HEMATOLOGY Monocytes # 0.9 0.0 - 0.8 06/30 [facility] /2017 [facility] HEMATOLOGY Anisocyte 1+ None Seen 06/30 [facility] *ABN* /2017 [facility] (06/30/18 5:16 AM) Cente r HEMATOLOGY Eosinophils 0.1 0.0 - 0.5 06/30 [facility] # /2018 [facility] HEMATOLOGY Target Cell Slight 06/[address] HEMATOLOGY Monocytes 20.2 2.0 - 12.0 06/[address] HEMATOLOGY Basophils 0.9 0.0 - 1.0 06/[address] HEMATOLOGY Lymphocytes 32.1 20.0 - 06/30 [place] 40.0 [facility] HEMATOLOGY Eosinophils 1.2 0.0 - 4.0 06/30 [facility] s /[address] [place] [address] HEMATOLOGY Neutrophils 2.0 1.5 - 8.1 06/30 [facility] # /2017 [facility] HEMATOLOGY Lymphocytes 1.4 1.0 - 5.5 06/30 [facility] /[address] [place] [address] HEMATOLOGY Segs 45.6 45.0 - 06/30 [facility] 75.0 [facility] HEMATOLOGY Plt Morph Normal 06/30 [facility] (06/30/18 5:16 AM) /2017 [facility] ANEMIA Iron 61 30 - 160 06/29 [facility] STUDY /2018 [facility] ANEMIA TIBC 223 228 - 428 06/29 [facility] /[address] [place] [address] ANEMIA UIBC 162 110 - 370 06/29 [facility] /[address] [place] [address] ANEMIA % [place] 27 12 - 57 06/[address] ANEMIA Ferritin Lvl 428 5 - 204 06/[address] CHEM PANEL Phosphorus 3.6 2.5 - 4.5 06/[address] CHEM PANEL Magnesium 2.2 1.8 - 2.4 06/29 [facility] /[address] [place] [address] CHEM PANEL Bili Total 0.5 0.2 - 1.3 06/29 [facility] CHEM PANEL Alk Phos 140 39 - 136 06/29 [facility] CHEM PANEL AST 13 0 - 37 06/29 [facility] CHEM PANEL ALT 14 0 - 65 06/29 [facility] CHEM PANEL eGFR 13 06/29 Result Comment: [...] Albumin Lvl 3.0 3.5 - 5.0 06/29 [facility] CHEM PANEL Total 7.1 6.4 - 8.4 06/29 [facility] CHEM PANEL Chloride Lvl 104 95 - 109 06/29 [facility] CHEM PANEL Calcium Lvl 7.6 8.5 - 10.5 06/29 [facility] CHEM PANEL CO2 25 24 - 32 06/29 [facility]2017 [facility] CHEM PANEL Potassium 4.2 3.5 - 5.1 06/29 [facility] CHEM PANEL Sodium Lvl 138 135 - 145 06/29 [facility]2017 [facility] CHEM PANEL Glucose Lvl 95 70 - 99 06/29 [facility] CHEM PANEL BUN 30 7 - 22 06/29 2017 [facility] CHEM PANEL Creatinine 4.15 0.50 - 06/29 [facility] 1.40 [facility] CHEM PANEL AGAP 13.2 10.0 - 06/29 [place] 20.0 [facility] CHEM PANEL A/G Ratio 0.7 0.7 - 1.6 06/29 [facility]2017 [facility] CHEM PANEL Globulin 4.1 2.7 - 4.2 06/29 [facility]2017 [facility] CHEM PANEL B/C Ratio 7 6 - 25 06/29 [facility]2017 [facility] HEMATOLOGY MPV 8.2 7.4 - 10.4 06/29 2017 [facility] HEMATOLOGY RDW 16.5 11.5 - 06/29 [place] 14.5 [facility] HEMATOLOGY Platelet 131 133 - 450 06/[address] HEMATOLOGY MCV 85.3 80.0 - 06/29 [facility] 98.0 [facility] HEMATOLOGY MCH 27.9 27.0 - 06/29 [place] 31.0 [facility] HEMATOLOGY MCHC 32.7 32.0 - 06/29 [facility] 36.0 [facility] HEMATOLOGY RBC 3.40 4.20 - 06/29 [place] 5.40 /2017 [facility] HEMATOLOGY Hgb 9.5 12.0 - 06/29 [place] 16.0 [facility] HEMATOLOGY WBC 5.3 3.7 - 10.4 06/29 2017 [facility] HEMATOLOGY Hct 29.0 36.0 - 06/29 [place] 48.0 [facility] HEMATOLOGY Retic Auto 1.6 0.5 - 1.5 06/29 [facility]2017 [facility] HEMATOLOGY Monocytes 20.2 2.0 - 12.0 06/[address] HEMATOLOGY Segs 50.7 45.0 - 06/29 [place] 75.0 [facility] HEMATOLOGY Lymphocytes 27.3 20.0 - 06/29 [place] 40.0 [facility] HEMATOLOGY Monocytes # 1.1 0.0 - 0.8 06/29 [place] /2018 [facility] HEMATOLOGY Eosinophils 0.1 0.0 - 0.5 06/29 [place] # /2017 [facility] HEMATOLOGY Basophils 0.7 0.0 - 1.0 06/29 [facility]2018 [facility] HEMATOLOGY Neutrophils 2.7 1.5 - 8.1 06/29 [place] # /2018 [facility] HEMATOLOGY Eosinophils 1.1 0.0 - 4.0 06/29 [place] /2018 [facility] HEMATOLOGY Lymphocytes 1.5 1.0 - 5.5 06/29 [place] # /2018 [facility] CHEM PANEL Magnesium 2.2 1.8 - 2.4 06/28 [facility] CHEM PANEL Phosphorus 4.1 2.5 - 4.5 06/28 [facility] CHEM PANEL eGFR 6 06/28 Result Comment: [...] PANEL CO2 25 24 - 32 06/28 [facility] CHEM PANEL Glucose Lvl 94 70 - 99 06/28 [facility]2017 [facility] CHEM PANEL BUN 49 7 - 22 06/28 [facility]2017 [facility] CHEM PANEL Potassium 4.3 3.5 - 5.1 06/28 [facility] CHEM PANEL Creatinine 7.38 0.50 - 06/28 [facility] Lvl 1.40 [facility] CHEM PANEL Sodium Lvl 136 135 - 145 06/28 [facility] CHEM PANEL Chloride Lvl 103 95 - 109 06/28 [place] [facility] CHEM PANEL Albumin Lvl 3.1 3.5 - 5.0 06/[facility] CHEM PANEL Calcium Lvl 7.6 8.5 - 10.5 06/28 [facility] CHEM PANEL Total 6.9 6.4 - 8.4 06/28 [facility] CHEM PANEL AST 13 0 - 37 06/28 [facility]2017 [facility] CHEM PANEL Alk Phos 125 39 - 136 06/28 [facility]2017 [facility] CHEM PANEL ALT 11 0 - 65 06/28 [facility] CHEM PANEL Bili Total 0.5 0.2 - 1.3 06/28 [facility] CHEM PANEL Globulin 3.8 2.7 - 4.2 06/28 2017 [facility] CHEM PANEL B/C Ratio 7 6 - 25 06/28 [facility]2017 [facility] CHEM PANEL A/G Ratio 0.8 0.7 - 1.6 06/28 2017 [facility] CHEM PANEL AGAP 12.3 10.0 - 06/28 [place] 20.0 [facility] HEMATOLOGY MPV 8.5 7.4 - 10.4 06/28 2017 [facility] HEMATOLOGY Platelet 145 133 - 450 06/28 [facility] HEMATOLOGY RDW 16.0 11.5 - 06/28 [place] 14.5 [facility] HEMATOLOGY MCHC 31.5 32.0 - 06/28 [place] 36.0 [facility] HEMATOLOGY MCH 26.9 27.0 - 06/28 [place] 31.0 [facility] HEMATOLOGY MCV 85.6 80.0 - 06/28 [place] 98.0 [facility] HEMATOLOGY Hct 29.4 36.0 - 06/28 [place] 48.0 [facility] HEMATOLOGY RBC 3.43 4.20 - 06/28 [place] 5.40 [facility] HEMATOLOGY WBC 5.1 3.7 - 10.4 06/28 /2017 [facility] HEMATOLOGY Hgb 9.2 12.0 - 06/28 [place] 16.0 2018 [facility] HEMATOLOGY Basophils # 0.1 0.0 - 0.2 06/28 [place]2017 [facility] HEMATOLOGY Eosinophils 0.1 0.0 - 0.5 06/28 [place] # /2017 [facility] HEMATOLOGY Monocytes # 0.9 0.0 - 0.8 06/28 [place] /2018 [facility] HEMATOLOGY Monocytes 17.7 2.0 - 12.0 06/28 [place] [facility] HEMATOLOGY Segs 52.2 45.0 - 06/28 [place] 75.0 /2017 [facility] HEMATOLOGY Lymphocytes 27.8 20.0 - 06/28 [place] 40.0 /2018 [facility] HEMATOLOGY Lymphocytes 1.4 1.0 - 5.5 06/28 [place] # /2017 [facility] HEMATOLOGY Neutrophils 2.7 1.5 - 8.1 06/28 [place] # [facility] HEMATOLOGY Basophils 1.0 0.0 - 1.0 06/28 [facility] HEMATOLOGY Eosinophils 1.3 0.0 - 4.0 06/28 [facility] /2017 [facility] AMINO ACID MMA Qnt 589 0 - 378 06/27 [facility] [address] [place] [address] AMINO ACID Homocyst Tot 40.6 0.0 - 15.0 06/27 [place] [facility] ANEMIA Vitamin B12 521 254 - 1320 06/27 [facility] STUDY Lvl [facility] CHEM PANEL Ammonia 29.0 <=45.0 06/27 [facility] uMol/L [facility] IMMUNOLOGY RPR Non-Reactive Non 06/27 [facility] (06/27/18 1:12 PM) [facility] MOLECULAR HCV RNA <1.2 06/26 [facility] DIAGNOSTIC Log10 [facility] MOLECULAR HCV RNA Not Detected 06/26 [facility] DIAGNOSTIC [facility] (06/26/18 2:58 PM) [facility] URINE AND UA <=1.0 0.1 - 1.0 06/26 [facility] STOOL Urobilinogen mg/dL [facility] URINE AND UA WBC 2 0 - 5 06/26 [facility] URINE AND UA Leuk Est Negative Negative 06/26 [facility] (06/26/18 8:03 AM) [facility] URINE AND UA Nitrite Negative Negative 06/26 [facility] [place] [facility] (06/26/18 8:03 AM) [facility] URINE AND UA Sq Epi None Seen 06/26 [facility] URINE AND UA RBC <1 0 - 2 06/26 [facility] [place] [facility] [address] [place] [address] URINE AND UA Glucose Negative Negative 06/26 [facility] STOOL mg/dL mg/dL [facility] URINE AND UA Protein 50 mg/dL Negative 06/26 [facility] STOOL mg/dL [facility] [facility] URINE AND UA Blood Negative Negative 06/26 [facility] (06/26/18 8:03 AM) [facility] URINE AND UA pH 7.5 5.0 - 8.0 06/26 [facility] [address] [place] [address] URINE AND UA Bili Negative Negative 06/26 [facility] STOOL *NA* /2017 [facility] (06/26/18 8:03 AM) Cente r URINE AND UA Ketones Negative Negative 06/26 [facility] STOOL mg/dL mg/dL [facility] URINE AND UA Color Light Yellow Yellow 06/26 [facility] STOOL *NA* /2017 Medical (06/26/18 8:03 AM) [place] [facility] URINE AND UA Spec Grav 1.004 <=1.030 06/26 [facility] STOOL /2017 [facility] URINE AND UA Turbidity Clear Clear 06/26 [facility] STOOL (06/26/18 8:03 AM) [facility] IMMUNOLOGY Hep Bs Ab 66.7 <=7.4 06/24 [place] mIU/mL [facility] IMMUNOLOGY Hep C Ab Positive 06/24 [place] *ABN* Medical (06/24/18 1:39 PM) [place] [facility] IMMUNOLOGY Hep B Core Negative Negative 06/24 [place] Ab *NA* Medical (06/24/18 1:39 PM) [place] [facility] IMMUNOLOGY Hep B Core Negative Negative 06/24 [facility] IgM *NA* Medical (06/24/18 1:39 PM) [place] IMMUNOLOGY Hep Bs Ag Negative Negative 06/24 [place] *NA* /2017 Medical (06/24/18 1:39 PM) [place] [facility] BACTERIAL - MRSA by PCR Negative [facility]06/24/18 1:05 PM) [facility] CARDIAC Troponin-I 0.05 0.00 - 06/24 [facility] ENZYMES 0.40 [facility] CARDIAC BNP 1954 <=100 06/24 [facility] ENZYMES pg/mL [facility] CARDIAC proBNP 12666 0 - 125 06/24 [facility] ENZYMES /2017 [facility] CHEM PANEL Bili Direct 0.1 0.0 - 0.3 [place] [facility] CHEM PANEL Bili 0.8 0.0 - 1.0 06/24 [place] Indirect /2017 [facility] HEMATOLOGY PTT 36.4 22.9 - 06/24 [place] 35.8 [facility] HEMATOLOGY PT 15.4 12.0 - 06/24 [place] 14.7 [facility] HEMATOLOGY INR 1.24 0.85 - 06/24 [place] 1.17 [facility] HEMATOLOGY Basophils # 0.1 0.0 - 0.2 06[place] [facility] IMMUNOLOGY HIV Ag/Ab Negative Negative 06/24 [facility] 4th Gen *NA* /2017 Medical (06/24/18 1:05 PM) Cente r MOLECULAR Influenza A Negative Negative 06/24 [facility] DIAGNOSTIC PCR (06/24/18 1:05 PM) [facility] MOLECULAR Source [employer] Swab 06/24 [place] DIAGNOSTIC Respiratory (06/24/18 1:05 PM) Medical [facility] PCR Center MOLECULAR Influenza B Negative Negative 06/24 [facility] DIAGNOSTIC PCR (06/24/18 1:05 PM) [facility] Negative Negative 06/24 [facility] DIAGNOSTIC (06/24/18 1:05 PM) [facility] PARATHYROID Ca Ion WB 0.92 1.05 - 06/24 [place] PROFILE . [facility] PARATHYROID Ca Norm WB 0.86 1. - 06/24 Result [facility] PROFILE 07.27 Comment: [facility] Center RESULT CALLED TO SHERRI BELLA AT 06/24/2018 15:42 BY SXP. READ BACK OK. SPECIAL Hgb A1C <3.5 % <=5.6 % 06/24 [facility] CHEMISTRY /2017 [facility] CHEM PANEL eGFR 14 01/10 Result Comment: The [facility] eGFR is City calculated using the CKD-EPI [...] Creatinine 3.84 0.50 - 01/10 Lvl 1.40 [facility] CHEM PANEL Calcium Lvl 8.3 8.5 - 10.5 01/10 [facility] CHEM PANEL AGAP 10.1 10.0 - 01/10 20.0 [facility] CHEM PANEL CO2 32 24 - 32 01/10 [facility] CHEM PANEL Chloride Lvl 102 95 - 109 01/10 [facility] CHEM PANEL Potassium 4.1 3.5 - 5.1 01/10 Lvl /2016 [facility] CHEM PANEL Sodium Lvl 140 135 - 145 01/10 [facility] CHEM PANEL BUN 9 7 - 22 01/10 [facility] CHEM PANEL Glucose Lvl 91 70 - 99 01/10 [facility] CHEM PANEL Phosphorus 2.6 2.5 - 4.5 01/10 [facility] IMMUNOLOGY Hep Bs Ag Negative Negative 01/09 *NA* /2016 [facility] (01/09/17 6:45 PM) [facility] DRUG SCREEN UDS Note See Note 01/08 *NA* /2016 [facility] (01/08/17 6:00 PM) [facility] DRUG SCREEN U Benzodia Negative Negative 01/08 Scr *NA* /2016 [facility] (01/08/17 6:00 PM) [facility] DRUG SCREEN U Pinky Scr Negative Negative 01/08 *NA* /2016 [facility] (01/08/17 6:00 PM) [facility] DRUG SCREEN U Cocaine Negative Negative 01/08 Scr *NA* /2016 [facility] (01/08/17 6:00 PM) [facility] DRUG SCREEN U Cannab Scr Negative Negative 01/08 *NA* [facility] (01/08/17 6:00 PM) [facility] DRUG SCREEN U Phencyc Negative Negative 01/08 Scr *NA* /2016 [facility] (01/08/17 6:00 PM) [facility] DRUG SCREEN U Opiate Scr Negative Negative 01/08 *NA* [facility] (01/08/17 6:00 PM) [facility] DRUG SCREEN U Amph Scr Negative Negative 01/08 *NA* /2016 [facility] (01/08/17 6:00 PM) [facility] URINE AND UA <=1.0 0.1 - 1.0 01/08 STOOL Urobilinogen mg/dL /2016 [facility] URINE AND UA Ketones Negative 01/08 STOOL /2016 [facility] URINE AND UA Color Straw 01/08 STOOL /2016 [facility] URINE AND UA pH >=9.0 5.0 - 8.0 01/08 STOOL *ABN* /2016 [facility] (01/08/17 6:00 PM) [facility] URINE AND UA RBC <1 0 - 2 01/08 STOOL /2016 [facility] URINE AND UA WBC 1 0 - 5 01/08 STOOL /2016 [facility] URINE AND UA Glucose Negative Negative 01/08 STOOL mg/dL mg/dL /2016 [facility] URINE AND UA Spec Grav 1.004 <=1.030 01/08 STOOL /2016 [facility] URINE AND UA Nitrite Negative Negative 01/08 STOOL (01/08/17 6:00 PM) /2016 [facility] URINE AND UA Protein 30 mg/dL Negative 01/08 STOOL mg/dL /2016 [facility] URINE AND UA Turbidity Clear Clear 01/08 STOOL (01/08/17 6:00 PM) /2016 [facility] URINE AND UA Bili Negative Negative 01/08 STOOL *NA* /2016 [facility] (01/08/17 6:00 PM) [facility] URINE AND UA Blood Negative Negative 01/08 STOOL (01/08/17 6:00 PM) /2016 [facility] URINE AND UA Mucus Few /LPF None Seen 01/08 STOOL /LPF /2016 [facility] URINE AND UA Sq Epi Few /LPF Few /LPF 01/08 STOOL /2016 [facility] URINE AND UA Leuk Est Negative Negative 01/08 STOOL (01/08/17 6:00 PM) /2016 [facility] URINE AND UA Bacteria Occasional None Seen 01/08 STOOL /HPF /HPF /2016 [facility] HEMATOLOGY PTT 36.2 22.9 - 01/08 MH 35.8 /2016 [facility] HEMATOLOGY INR 1.05 0.85 - 01/08 1.17 [facility] HEMATOLOGY PT 13.9 12.0 - 01/08 MH 14.7 /2016 [facility] LIPIDS VLDL 22 01/08 MH /2016 [facility] LIPIDS LDL 50 <=99 mg/dL 01/08 (Calculated) /2016 [facility] LIPIDS Chol 145 <=199 01/08 mg/dL [facility] LIPIDS Trig 109 <=149 01/08 mg/dL [facility] LIPIDS HDL 73 >=61 mg/dL 01/08 /2016 [facility] LIPIDS CHD Risk 1.99 3.90 - 01/08 MH 5.80 /2016 [facility] SPECIAL Hgb A1C 4.6 <=5.6 % 01/08 CHEMISTRY /2016 [facility] CHEM PANEL B/C Ratio 3 6 - 25 07/ [facility] CHEM PANEL AGAP 14.4 10.0 - 07/ MH 20.0 /2017 [facility] CHEM PANEL Globulin 5.5 2.7 - 4.2 01/08 [facility] CHEM PANEL A/G Ratio 0.6 0.7 - 1.6 01/08 [facility] CHEM PANEL eGFR 8 01/08 Result Comment: [facility] eGFR is City calculated using the CKD-EPI [...] Glucose Lvl 85 70 - 99 01/08 [facility] CHEM PANEL CO2 26 24 - 32 01/08 [facility] CHEM PANEL ALT 14 0 - 65 01/08 [facility] CHEM PANEL Creatinine 6.23 0.50 - 07 MH Lvl 1.40 /2016 [facility] CHEM PANEL Albumin Lvl 3.3 3.5 - 5.0 01/08 [facility] CHEM PANEL BUN 16 7 - 22 01/08 [facility] CHEM PANEL AST 24 0 - 37 01/08 [facility] CHEM PANEL Bili Total 0.5 0.2 - 1.3 01/08 [facility] CHEM PANEL Total 8.8 6.4 - 8.4 01/08 MH [facility] CHEM PANEL Alk Phos 215 39 - 136 01/08 [facility] CHEM PANEL Chloride Lvl 101 95 - 109 01/08 [facility] CHEM PANEL Potassium 5.4 3.5 - 5.1 01/08 MH Lvl /2016 [facility] CHEM PANEL Calcium Lvl 9.1 8.5 - 10.5 07/ /2016 [facility] CHEM PANEL Sodium Lvl 136 135 - 145 07/ [facility] CHEM PANEL Magnesium 2.4 1.8 - 2.4 / Lvl /2016 [facility] HEMATOLOGY Hgb 10.5 12.0 - 01/08 MH 16.0 /2016 [facility] HEMATOLOGY Hct 31.5 36.0 - 01/08 MH 48.0 /2016 [facility] HEMATOLOGY WBC 9.0 3.7 - 10.4 07/ /2016 [facility] HEMATOLOGY RBC 3.70 4.20 - 01/08 MH 5.40 /2016 [facility] HEMATOLOGY MCV 85.3 80.0 - 01/08 MH 98.0 /2016 [facility] HEMATOLOGY MCH 28.5 27.0 - 01/08 MH 31.0 /2016 [facility] HEMATOLOGY MCHC 33.4 32.0 - 01/08 MH 36.0 /2016 [facility] HEMATOLOGY RDW 12.9 11.5 - 01/08 MH 14.5 /2016 [facility] HEMATOLOGY Platelet 212 133 - 450 07 [facility] HEMATOLOGY MPV 9.0 7.4 - 10.4 07 [facility] HEMATOLOGY Monocytes 12.8 2.0 - 12.0 01/08 [facility] HEMATOLOGY Segs 43.7 45.0 - 01/08 MH 75.0 /2016 [facility] HEMATOLOGY Lymphocytes 40.4 20.0 - 01/08 MH 40.0 /2016 [facility] HEMATOLOGY Segs-Bands # 4.0 1.5 - 8.1 01/08 [facility] HEMATOLOGY Eosinophils 1.9 0.0 - 4.0 01/08 [facility] HEMATOLOGY Monocytes # 1.2 0.0 - 0.8 01/08 [facility] HEMATOLOGY Lymphocytes 3.7 1.0 - 5.5 01/08 # /2016 [facility] HEMATOLOGY Basophils 1.2 0.0 - 1.0 01/08 [facility] HEMATOLOGY Eosinophils 0.2 0.0 - 0.5 01/08 # /2016 [facility] HEMATOLOGY Basophils # 0.1 0.0 - 0.2 01/08 [facility] Pathology Reports No Data Provided for This Section Diagnostic Reports Report Value Date Source Chest 2 views DX EXAM: XR CHEST 1 VIEW 06/25/2018 [facility] DATE: 06/25/2018 5:32 PHARMACY SCHEDULER Center INDICATION: - bilateral patchy opacities COMPARISON: [...] DX EXAM: XR CHEST 1 VIEW 06/24/2018 [facility] edical DATE: 06/24/2018 12:03 [facility]: - icu ad. FINDINGS: [...] contrast MRI 01/08/2017 4:41 PM CDT 03/2017 [facility] MRI Clinical Indication: Hemihyp estesia - transferred to [facility], outside [place]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 [...] Comments Source Systolic (mm Hg) 158 06/30/2018 [facility] dical Center Diastolic (mm Hg) 76 06/30/2018 [facility] Systolic (mm Hg) 149 06/30/2018 [facility] Diastolic (mm Hg) 69 06/30/2018 [facility] Center Systolic (mm Hg) 156 06/30/2018 [facility] dical Center Diastolic (mm Hg) 62 06/30/2018 [facility] Temperature Oral (F) 96.5 F 06/30/2018 [facility] Respitory Rate 20 06/30/2018 [facility] Heart Rate 83 06/30/2018 [facility] Temperature Oral (F) 96.3 F 06/30/2018 [facility] Respitory Rate 20 06/30/2018 [facility] Heart Rate 60 06/30/2018 [facility] Temperature Oral (F) 96.5 F 06/30/2018 [facility] Heart Rate 60 06/30/2018 [facility] Respitory Rate 20 06/30/2018 [facility] BMI Calculated 19.41 06/24/2018 [facility] Weight 45.085 06/24/2018 [facility] Height 152.4 cm 06/24/2018 [facility] Systolic (mm Hg) 128 01/10/2017 [facility] Diastolic (mm Hg) 72 01/10/2017 [facility] Respitory Rate 14 01/10/2017 [facility]y Systolic (mm Hg) 100 01/10/2017 [facility] Diastolic (mm Hg) 72 01/10/2017 [facility] Respitory Rate 24 01/10/2017 [facility] C ity Systolic (mm Hg) 118 01/10/2017 [facility] Diastolic (mm Hg) 60 01/10/2017 [facility] Respitory Rate 19 01/10/2017 [facility] C ity BMI Calculated 32.73 01/08/2017 [facility]y Weight 76.007 01/08/2017 [facility] Height 152.4 cm 01/08/2017 [facility] y Encounters Location Location Encounter Encounter Reason Attending ADM DC Stat us Source Details Type Number For Provider Date Date Visit [facility] [id number] Tom 01/09 01/10 Cullen Rodgersnaye /2016 [facility] [id number] Adrian 06/24 06/30 [facility] Cullen Kamille /2017 [facility] Procedures Procedure Code Date Perfomer Comments Source section [id number] [facility] Cholecystectomy [id number] [facility] Assessment and Plan Assessment and Plan Date Source Extracted from:Title: FM R1 Discharge Summary 06/30/2018 [facility] Author: Daniel Murray MD PHD Date: [...] emergent HD 2/2 hyperkalemia/uremia Final Diagnosis/Diagnoses: Acutepulmonaryedema [id number] ESRD(endstagerenaldisease) Hepaticencephalopathy Malnutrition cognitive impairment 2/2 suspected [...] Hepatitis C who presented as transfer from [facility] for emergent dialysis. She presented to [...] (home med) and transferred to [facility] for emergent dialysis as a direct ICU transfer. At [facility], patient's BP got as high as 260. [...] with pt's sister, 2 brother s, aunt, [id number], and 2 daughters. Family apparently beleived pt [...] to explain or retain any new information g iven to her about her disease. When told [...] moving in w ith her brother and [id number]. PCP was contacted and giv en our [...] Zachery Fuentes, Call for appointment , PH: [phone], within: 2 Weeks, reason: Primary Care Physician follow up post hospitalization Daniel Murray MD/PhD Family Medicine PGY1 MSO# [id number] Extracted from:Title: [place] Nephrology progress note Author: Angela Howard DO Date: 06/30/18 NEPHROLOGY PROGRESS NOTE Attending: Adrian Simental MD Service: [facility] Service Code status: Full Code Reason for Admission: KIDNEY FAILURE Working DRG: Isolation: No Isolation/Standard Precautions Consulting Physicians: Neeta Lozano MD Office: [phone] Service: General Medicine, Nephrology Angela Howard DO [...] of Ms. To. Angela Howard, PGY5 P: [phone] C: [phone] Addendum by Rosamaria Palumbo MD on 06/30/2018 14:54 [place] NEPHROLOGY STAFF ATTESTATION I saw this medically [...] 147/74, P 57 Tolerating procedure. Extracted from:Title: [place] Nephrology Consult Note Author: Neeta Lozano MD Date: 06/24/18 58 yr old woman with PMH of HTN, hepatit is C, HFpEF, previous cocaine abuse, bipolar disorder, COPD, CAD/ [place] 2012, Stroke in 2013, ESRD secondary to HTN started on HD 2 years ago. Patient usually has a TThS schedule and get transported to her HD center (in [facility]) with a car service last HD about 2 weeks ago per patient, h er transport service stopped coming and she never followed up afterwards presented to [facility] th 3 days of shortness of breath and swollen breasts and arms, found to have hypertensive urgency, hyperkalemia and pulmonary edema 1-ESRD: Secondary toHTN Duration 2 years HD center [facility] dialysis in [place] [employer] Reporting Accountant unknown to patient HD schedule TThS Last HD 2 weeks ago Dry weight unknown to patient Access left upper extremity AVF HD order for today- 2 hrs, 400/800, UF 1-3 kg as rommel will reassess tomorrow for further HDneeds 2-Volume status: pulmonary edema Hypervolemia Will control with iHD 3-Electrolytes: hyperkalemia Na, Ca, Mg unremarkable per OSH labs labs in [facility] pending Will control with iHD Renal [...] by Rosamaria Palumbo MD on 06/25/2018 21:43 PHARMACY SCHEDULER [place] NEPHROLOGY STAFF ATTESTATION I saw and evaluated this medically compl ex patient on 06/25/18. I have reviewed the labs and radiographic data, discussed the plans with the fellow and renal team, and agree with this note. Extracted from:Title: MICU History and Physical Author: iMguelito Valero MD Date: 06/24/18 58YOF with PMH ofESRD, COPD, CVA,HTN, He patitis C who presented as transfer from [facility] for emergent dialysis found to have [...] _HD Antihypertensives Extracted from:Title: Clinical Document 01/10/2017 [facility] Author: Stefano Magana MD Date: [...] present . Stefano Magana M.D., [facility] Extracted from:Title: RENAL Author: Stefano Magana [...] TID. enoxaparin: 30 mg, 0.3 mL, SUB-Q, [id number]. famotidine: 20 mg, 1 tab, PO, Q12H. [...] 24hr Tot 0 0 0 CCL error: %KIT-Y-959-SMT_EDOC_COMMON(0, 0)[id number] on array out of bound at (size:1,occur:10). CCL error: %JJF-O-049-SMT_EDOC_COMMON(0, 0)[id number] on array out of bound at (size:1,occur:5). CCL error: %WEF-J-122-SMT_EDOC_COMMON(0, 0)[id number] on array out of bound at (size:1,occur:5). CCL error: %IHW-P-840-SMT_EDOC_COMMON(0, 0)486297:[id number] on array out of bound at (size:1,occur:7). CCL error: %LLY-S-154-SMT_EDOC_COMMON(0, 0)[id number]:1146Overflow on array out of bound at (size:1,occur:2). [...] Dr. Wood Magana M.D., [facility] Extracted from:Title: History and Physical Author: Brendan [...] History Date Source Social History TypeResponse 08/05/2013 [facility] Sexual Sexually active: No. Alcohol [...] Cessation Counseling No Social History TypeResponse 08/05/[address] [facility] Sexual Sexually active: No. Alcohol Past, [...]
--- OUTSIDE RECORDS SUMMARY | 2020-07-18 14:38 | XMS REPORT | Continuity of Care Document ---
:1960 Author Organization [facility] t Address [address] [place] [address] Care Team Providers Name Role Phone Maru Louie MD Primary Care Physician Mariel HAYS Attending Clinician Unavailable Ronan Gibbons MD Attending Clinician Sahil Otero MD Attending Clinician Jad Goodwin MD Attending Clinician Ronan GIBBONS Attending Clinician Unavailable Feng Simental Attending Clinician Otoniel Muir Attending Clinician JAD GOODWIN Admitting Clinician Unavailable Feng Simental Admitting Clinician Otoniel Muir Admitting Clinician Payers Payer Name Policy Type Policy Effective Date Expiration Date Sour ce Number MEDICAREMEDICARE A [id number] JOSE Levy [id number] 2011-P 00:00:00 - Medical [facility] AMERIGROUP MEDICARE [id number] [facility] CAREAMERIGROUP 00:00:00 - [facility] shreya [id number] 2015- Ce nter Present MEDICAID - MEDICAID [id number] 2019 JOSE Levy MGD [place] 00:00:00 - Medica l [id number]/ nter /2019-PresentMedicaid Non-Contracted MEDICAIDMEDICAID OF [id number] 2013 JOSE Kennedy sadia Irmakaitlin [id number] 00:00:00 - Medical -PresentMedicaid Center Problems Condition Condition Condition Status Onset Resolution Last Treating Co mments Source Name Details Category Date Date Treatment Clinician Date Shortness Shortness Disease Active 2019-[address] [facility] breath of breath 0 [facility] - 00:00: Medical 00 [place] Leucocytos Leucocytos Disease Active 2019-[address] [facility] Medical 00 [place] KIDNEY Diagnosis Active 2017-072018-07-11 [facility] oria FAILURE 08-25 22:07:00 l KIDNEY 00:00: [place] FAILURE 00 Active 06/24/2018 [facility] ISCHEMIC Diagnosis [facility] 16:23:00 l ISCHEMIC 00:00: Josesito n STROKE 00 Active 01/08/2017 [facility] NUMBNESS Diagnosis Active 2017-01-17 emoria 01-08 21:50:00 l NUMBNESS 00:00: Josesito n 00 Active 01/08/2017 [facility] Atrial Atrial Disease Active [facility] myxoma myxoma 02-05 [facility]: Medical 00 [place] ESRD on ESRD on Disease Active [facility] dialysis dialysis 02-05 [facility] 00:[facility]: Medical 00 [place] Hyponatrem Hyponatrem Disease Active [facility] ia ia 02-05 [facility] - 00:00: Medical 00 [place] Metabolic Metabolic Disease Active [facility] bone bone 02-05 [facility] - disease disease 00:00: Medical 00 [place] Catheter-r Catheter-r Disease Active [facility] elated elated 02-05 [facility] - bloodstrea bloodstrea 00:00: Id dical m 00 [place] infection infection (CRBSI) (CRBSI) Infective Infective Disease Active [facility] endocardit endocardit 02-05 Irma kes - is is 00:00: Medical 00 Center Anemia of Anemia of Disease Active [facility] chronic chronic 02-05 [facility] - disease disease 00:00: Medical 00 Center Depression Depression Disease Active [facility] 8[facility]06 [facility] - 00:[facility]: Medical 00 Center Bacteremia Bacteremia Disease Active [facility] 7-16 [facility] - 00:[facility]: Medical 00 Center Methicilli Problem Active 2008-2019-01-17 M jaspreet n 2-10 13:57:27 l resistant 00:00: [place] Staphyloco Methicilli 00 ccus n aureus resistant (organism) Staphyloco ccus aureus (organism) Active 06/11/2009 Problem 01/17/2019 06/11/09 Nares- MRSA by PCRProblem added by Discern Expert. [facility] Cerebral Problem 2017-01-13 Mem oria infarction 02:14:10 l , Cerebral Josesito n unspecifie infarction d , unspecifie d 01/13/2017 [facility] End stage Problem 2019-01-17 Me moria renal 13:57:27 l disease End [place] stage renal disease 01/17/2019 [facility] Chronic Problem 2019-01-17 [place] diastolic 13:57:27 l (congestiv Chronic Her holloway e) heart diastolic failure (congestiv e) heart failure 01/17/2019 [facility] Acidosis Problem 2019-01-17 Mem oria 13:57:27 l Acidosis Josesito n 01/17/2019 [facility] Unspecifie Problem 2019-01-17 M emoria d 13:57:27 l protein-ca Josesito n angi Unspecifie malnutriti d on protein-ca angi malnutriti on 01/17/2019 [facility] Cocaine Problem 2019-01-17 [place] use, 13:57:27 l unspecifie Cocaine Her holloway d, use, uncomplica unspecifie sheryl d, uncomplica sheryl 01/17/2019 [facility] Patient's Problem 2019-01-17 Me moria noncomplia 13:57:27 l nce with [place] other Patient's medical noncomplia treatment nce with and other regimen medical treatment and regimen 01/17/2019 [facility] Nicotine Problem 2019-01-17 Mem oria dependence 13:57:27 l , Nicotine Josesito n cigarettes dependence , , uncomplica cigarettes sheryl , uncomplica sheryl 01/17/2019 [facility] Bipolar Problem 2019-01-17 [place] disorder, 13:57:27 l unspecifie Bipolar Her holloway d disorder, unspecifie d 01/17/2019 [facility] Chronic Problem 2019-01-17 [place] obstructiv 13:57:27 l e Chronic [place] pulmonary obstructiv disease, e unspecifie pulmonary d disease, unspecifie d 01/17/2019 [facility] Chronic Problem 2019-01-17 [place] viral 13:57:27 l hepatitis Chronic Herm jad C viral hepatitis C 01/17/2019 [facility] Hyperkalem Problem 2019-01-17 M emoria ia 13:57:27 l [place] Hyperkalem ia 01/17/2019 [facility] Hypertensi Problem 2019-01-17 M emoria ve urgency 13:57:27 l [place] Hypertensi ve urgency 01/17/2019 [facility] Anemia in Problem 2019-01-17 Me moria chronic 13:57:27 l kidney Anemia [place] disease in chronic kidney disease 01/17/2019 [facility] Patient's Problem 2019-01-17 Me moria noncomplia 13:57:27 l nce with [place] renal Patient's dialysis noncomplia nce with renal dialysis 01/17/2019 [facility] Vascular Problem 2019-01-17 Mem oria dementia 13:57:27 l without Vascular Kayce nn behavioral dementia disturbanc without e behavioral disturbanc e 01/17/2019 [facility] Dementia Problem 2019-01-17 Mem oria in other 13:57:27 l diseases Dementia Herm jad classified in other elsewhere diseases without classified behavioral elsewhere disturbanc without e behavioral disturbanc e 01/17/2019 [facility] Hepatic Problem 2019-01-17 [place] failure, 13:57:27 l unspecifie Hepatic Her holloway d without failure, coma unspecifie d without coma 9 [facility] 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-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 13:57:27 l heart [place] 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 without angina pectoris 01/17/2019 [facility] Bipolar Problem Resolve 2019-01-17 Mem oria disorder d 13:57:27 l (disorder) Bipolar Her holloway disorder (disorder) Resolved Problem 01/17/2019 [facility] Chronic Problem Resolve 2019-01-17 Mem oria kidney d 13:57:27 l disease Chronic Josesito n (disorder) kidney disease (disorder) Resolved Problem 01/17/2019 [facility] Chronic Problem Resolve 2019-01-17 Mem oria obstructiv d 13:57:27 l e lung Chronic [place] disease obstructiv (disorder) e lung disease (disorder) Resolved Problem 01/17/2019 [facility] Cerebrovas Problem Resolve 2019-01-17 Memoria cular d 13:57:27 l accident [place] (disorder) Cerebrovas cular accident (disorder) Resolved Problem 01/17/2019 [facility] Dialysis Problem Resolve 2019-01-17 Me moria finding d 13:57:27 l (finding) Dialysis Her holloway finding (finding) Resolved Problem 01/17/2019 started approx 2013 [facility] Disease of Problem Resolve 2019-01-17 Memoria gallbladde d 13:57:27 l r Disease [place] (disorder) of gallbladde r (disorder) Resolved Problem 01/17/2019 [facility] Acute Problem Resolve 2019-01-17 [place] myocardial d 13:57:27 l infarction Acute Kayce nn (disorder) myocardial infarction (disorder) Resolved Problem 01/17/2019 [facility] Viral Problem Resolve 2019-01-17 [place] hepatitis d 13:57:27 l C Viral [place] (disorder) hepatitis C (disorder) Resolved Problem 01/17/2019 [facility] Hypertensi Problem Resolve 2019-01-17 Memoria ve d 13:57:27 l disorder, [place] systemic Hypertensi arterial ve (disorder) disorder, systemic arterial (disorder) Resolved Problem 01/17/2019 [facility] Smoker Problem Resolve 2019-01-17 [place] (finding) d 13:57:27 l Smoker [place] (finding) Resolved Problem 01/17/2019 [facility] Simple Problem Active 2019-01-17 Memor ia obesity 13:57:27 l (disorder) Simple Herm jad obesity (disorder) Active Problem 01/17/2019 [facility] CEREBRAL Diagnosis Active 2017-01-08 M emoria INFARCTION 16:23:00 l , CEREBRAL Josesito n UNSPECIFIE INFARCTION D , UNSPECIFIE D Active [facility] ILLNESS, Diagnosis Active 2017-01-17 M emoria UNSPECIFIE 21:50:00 l D ILLNESS, Josesito n UNSPECIFIE D Active [facility] Hypertensi Problem 2019-0 2019-01-17 2019-01-17 Memoria ve heart 1-10 13:57:27 13:57:27 l and 04:12: [place] chronic Hypertensi 09 kidney ve heart disease and with heart chronic failure kidney and with disease stage 5 with heart chronic failure kidney and with disease, stage 5 or end chronic stage kidney renal disease, disease or end stage renal disease 07/12/2018 01/17/2019 [facility] Allergies, Adverse Reactions, Alerts Allergy Allergy Status Severity Reaction(s) Onset Inactive Treating Comm ents Source Name Type Date Date Clinician No Known No Known Active Memori a Medicati Medicati l on on [facility] Leonard s s Family History Family Member Diagnosis Comments Start Date Stop Date Source Natural mother Heart disease [facility] Social History Social Habit Start Date Stop Date Quantity Comments Source Sex Assigned At [facility] Cigarettes smoked 2020-04-10 2020-04-[address] [facility] [address] [facility] - current (pack per 00:00:00 00:00:00 [facility] day) - Reported Cigarette 2020-04-10 2020-04-[address] [facility] [address] [facility] - pack-years 00:00:00 00:00:00 [facility] Tobacco use and 2020-04-10 2020-04-[address] [facility] [facility] - exposure 00:00:00 00:00:00 [facility] Alcohol intake 2020-04-10 2020-04-[address] [facility] [facility] - 00:00:00 00:00:00 non-drinker of Medical Ce nter alcohol (finding) Social History 2013-08-05 2013-08-05 [facility] 08:46:07 08:46:07 Smoking Status Start Date Stop Date Source Current some day smoker 2020-04-10 00:00:00 [facility] Medications Ordered Filled Start Stop Current Ordering Indication Dosage Frequency Signature Comments Components Source Medication Medication Date Date Medication? Clinician (SIG) Name Name NIFEdipine 2019-07- No 60mg QD Take [address] (ADALAT CC) 0-13 10-13 tablet (60 L ukes - 60 MG 24 hr 00:00: 23:59 mg total) Medical tablet 00 :00 by mouth Center daily. ARIPiprazol 2019-07 Yes 15mg QD Take [address] [facility] e (ABILIFY) 0-12 by mouth Luke s - 10 MG 15:44: daily . Medical tablet 20 Center omeprazole 2019-07 Yes 40mg QD Take [address] (PRILOSEC) 0-12 by mouth [facility] - 20 MG 15:44: daily . Medical capsule 20 Center sertraline 2019-07 Yes 50mg QD Take [address] (ZOLOFT) 50 0-12 by mouth Luke s - MG tablet 15:44: daily. Medica l 20 Center acetaminoph 2019-07 Yes 650mg Take [address] en 0-12 mg by [facility]ukes - (TYLENOL) 15:44: mouth Medical 325 MG 20 every 4 Center tablet (four) hours as needed for Pain. LORazepam 2019-07 Yes 1mg Take [address] [facility] (ATIVAN) 1 0-12 by mouth [facility] - MG tablet 15:44: every 6 Medic al 20 (six) Center hours as needed for Anxiety. isosorbide 2019-07 Yes 30mg QD Take [address] dinitrate 0-12 by mouth [facility]ukes - (ISORDIL) 15:44: daily . Medic al 10 MG 20 Center tablet aspirin 81 2019-07 Yes 81mg QD Take [address] MG EC 0-12 by mouth [facility]ukes - tablet 15:44: daily. Medical 20 Center cloNIDine 2019-07 2020- No .2mg QD Take 0.[address] [facility] HCl 0-12 10-12 mg by Lukes - (CATAPRES) 09:21: 00:00 mouth Medic al 0.1 MG 45 :00 daily . Center tablet carvediloL 2019-07 2020- No 12.5mg Take 12.[address] (COREG) 0-12 10-12 mg by [facility]ukes - 12.5 MG 09:21: 00:00 mouth 2 Medica l tablet 45 :00 (two) Center times daily with breakfast and dinner. ramipriL 2019-07- No 5mg QD Take [address] (ALTACE) 5 0-12 10-12 by mouth Luke s - MG capsule 09:21: 00:00 daily. Medi shreya 45 :00 Center predniSONE 2019-07- No 10mg Q.5D Take [address] (DELTASONE) 0-12 10-12 by mouth 2 L ukes - 10 MG 09:21: 00:00 (two) Medical tablet 45 :00 times Center daily. acetaminoph 2019-07 No 1{tbl} Take [address] en-codeine 0-12 10-12 tablet by Sayra es - (TYLENOL 09:12: 00:00 mouth Medical #3) 300-30 00 :00 every 4 Center mg per (four) tablet hours as needed for Pain. cloNIDine 2019-07 Yes .2mg Q.5D Take [address] HCL 0-12 tablets Lukes - (CATAPRES) 00:00: (0.2 mg Medi shreya 0.1 MG 00 total) by Center tablet mouth 2 (two) times daily. miscellaneo 2019-[address]ense [facility] us medical 0-12 one [facility] - supply Misc 00:00: nebulizer M edical 00 machine Center with facemask and other necessary supplies. budesonide- 2019-07- No 2{puff} Q.5D Inhale [address] formoteroL 0-12 10-12 puffs by Dylon s - (Symbicort) 00:00: 23:59 mouth via Medical 160-4.5 00 :00 inhaler 2 Center mcg/actuati (two) on inhaler times daily. ipratropium 2019-07 No 3mL Take [address] -albuteroL 0-12 10-07 by Cam - (DUO-NEB) 00:00: 23:59 nebulizati M edical 0.5 mg-3 00 :00 on every 6 Cente r mg(2.5 mg (six) base)/3 mL hours as nebulizer needed for solution Wheezing for up to 360 days. predniSONE 2019-07- No Take [address] (DELTASONE) 0-12 10-24 tablets Luke s - 10 MG 00:00: 23:59 (40 mg Medical tablet 00 :00 total) by Center mouth daily for 3 days, THEN 3 tablets (30 mg total) daily for 3 days, THEN 2 tablets (20 mg total) daily for 3 days, THEN 1 tablet (10 mg total) daily for 3 days. hydrOXYzine 2019-07- No 50mg Take [address] [facility] (VISTARIL) 0-06 -06 by mouth 3 Iram kes - 50 MG 04:16: 00:00 (three) Medical capsule 14 :00 times Center daily as needed for Anxiety. Breo Breo 2019- No Patrick [address] Ellipta Ellipta 4-08 08- Jovel [facility]ukes - 00:00: 00:00 Memoria 00 :00 l [facility] Ventolin Ventolin Yes Patrick [address] [facility] HFA HFA -16 Jovel needed [facility] - 00:00: Memoria 00 l [facility] Docusate 2017-07 Yes 50 mg = 1 [place] en[place] Sodium 50 2-28 cap, PO, l MG Oral 22:57: BID, PRN Josesito n Capsule 00 Constipati on, Take 1-2 tabs daily to maintain soft formed stools., # 180 cap, 0 Refill(s) POLYETHYLEN 2017-07 Yes 17 gm = 1 M emoria E GLYCOL 2-28 pkt, GT, l 3350 22:57: Daily, As 00 needed for constipati on, 0 Refill(s) [...] regular 2-24 units) l 12:22: WASTE: F/P Cullen - Black; E - Municipal Trash Bin Stable for 28 days at room temperatur e Expires in days from ____Date Glucagon 2017-07 No 1 mg, Memoria 2-24 Route: IM, l 12:22: Drug form: [place] 00 PDR/INJ, PRN, Dosing Weight 45.085, kg, PRN Blood Glucose Results, Start date: 06/25/18 6:22:00 EMT I/99, Duration: 30 day, Stop date: 07/25/18 6:21:00 EMT I/99 Dextrose 2017-07 No 12.5 gm, Memor ia 50% Syringe 2-24 25 mL, l 12:22: Route: IVP, Drug Form: INJ, Dosing Weight 45.085, kg, PRN, PRN Blood Glucose Results, Start date: 06/25/18 6:22:00 EMT I/99, Duration: 30 day, Stop date: 07/25/18 6:21:00 EMT I/99 NIFEdipine 2017-07 No Notes: Memor ia 30 mg oral 2-24 (Same as: l tablet, 04:34: Adalat CC, Herm jad extended 00 Procardia release XL) Give on empty stomach. Take 1 hour before or 2 hours after meal; "Avoid grapefruit and grapefruit juice". Do not crush Saline 2017-07 No Notes: Memoria Flush 0.9% 2-24 (Same as: l 03:00: BD [place] 00 Posiflush) sennosides, 2017-07 No Notes: [place] en[place] LONG TERM 2-24 (Same as: l 03:00: Senokot) NIFEdipine [...] sodium, 2-23 porcine l porcine 22:00: heparin [place] 2500 UNT/ML 00 Injectable Solution Cardene 40 [...] PO, l tablet 20:03: Daily, 0 [place] Refill(s) Clonidine 2017-07 No Notes: Memori a Hydrochlori 2-23 (Same As: l de 0.1 MG 19:13: Catapres) Her holloway Oral Tablet 00 Saline 2017-07 No Notes: Memoria Flush 0.9% 2-23 (Same as: l 18:07: BD [place] Posiflush) Nystatin 2017-07 No Notes: Memoria 100 [...] PO, l oral tablet 23:09: Bedtime, # [place] 00 30 tab, 0 Refill(s) heparin No [...] e 7-10 Non-Formul l 00:00: yaima Drug. Cullen 00 (Same as: Abilimurtaza) Amlodipine No Notes: Memor ia 01-08 (Same [...] Amlodipine Yes 10 mg, PO, M emoria 709 Daily, 0 l 22:30: Refill(s) sertraline Yes 50 mg = 1 Me moria 50 mg oral 01-08 tab, PO, l tablet 22:30: Daily, 0 [place] 00 Refill(s) gabapentin Yes 300 mg = 3 M emoria 100 MG Oral 01-08 cap, PO, l Capsule 22:30: Bedtime, 0 Herm Refill(s) Hydroxyzine Yes 50 mg, PO, Memoria 01-08 TID, 0 l 22:30: Refill(s) Enoxaparin No Notes: Memor ia 01-08 (Same as: l 22:00: Lovenox) [place] 00 aspirin 81 No Notes: Do Me moria [...] 01-08 (Same as: l Flush 21:48: BD Posiflush) BD Normal No Notes: Memori a Saline 01-08 (Same as: l Flush 21:47: BD Posiflush) Saline No 10 ml, Memoria Flush 0.9% 01-08 Route: l 21:41: IVP, Drug Form: INJ, Dosing Weight 76.007, kg, PRN, PRN Line Flush, Start date: 01/08/17 16:41:00 CDT, Duration: 30 day, Stop date: 02/07/17 16:40:00 CDT ertapenem 2020- No .5g Q24H Inject 0.[address] (INVanz) 8-05 10-12 g [facility]ukes - IVPB 00:00: 00:00 intravenou Medica l 00 :00 sly daily. Center senna-docus 2020- No 1{tbl} QD Take [address] ate 8-01 10-12 tablet by [facility]ukes - (SENOKOT S) 00:00: 00:00 mouth Medi shreya 8.6-50 mg 00 :00 nightly. Center per tablet Clonidine Clonidine Yes Patrick [address] [facility] HCl HCl Jovel [facility] Ramipril Ramipril Yes Patrick [address] Jovel [facility] Carvedilol Carvedilol Yes Patrick as [facility] Jovel directed [facility] ent Clinics Trazodone Trazodone Yes Patrick [address] HCl HCl Jovel at bedtime [facility] Isosorbide Isosorbide Yes Patrick [address] Mononitrate Mononitrate Jovel in the [facility] Angela Miller No Patrick [address] 04-07 Jovel with meals [facility] - 00:00 Memoria :00 l [facility] ent [facility] Vital Signs Vital Name Observation Time Observation Value Comments Source Systolic blood 2020-04-13 12:15:00 111 mm[Hg] [facility] Diastolic blood 2020-04-13 12:15:00 56 mm[Hg] [facility] Heart rate 2020-04-13 12:15:00 54 /min [facility] Body temperature 2020-04-13 12:15:00 35.78 Wen [facility] Respiratory rate 2020-04-13 12:15:00 18 /min [facility] Oxygen saturation in 2020-04-13 12:15:00 98 /min [facility] - Arterial blood by Medical Ce nter Pulse oximetry Body weight 2020-04-13 09:10:00 72.258 kg [facility] BMI 2020-04-13 09:10:00 31.11 kg/m2 [facility] Body height 2020-04-07 01:50:00 152.4 cm [facility] Systolic (mm Hg) 2018-06-30 19:00:00 [place] rial [place] Diastolic (mm Hg) 2018-06-30 19:00:00 Mem orial [place] Systolic (mm Hg) 2018-06-30 18:50:00 [place] rial [place] Diastolic (mm Hg) 2018-06-30 18:50:00 Mem orial [place] Systolic (mm Hg) 2018-06-30 18:30:00 [place] rial [place] Diastolic (mm Hg) 2018-06-30 18:30:00 Mem orial [place] Temperature Oral (F) 2018-06-30 14:55:00 96.5 F Memorial [place] Respitory Rate 2018-06-30 14:06:00 Memori al [place] Heart Rate 2018-06-30 14:06:00 Memorial [place] Temperature Oral (F) 2018-06-30 14:06:00 96.3 F [facility] [place] Respitory Rate 2018-06-30 10:31:00 Memori al [place] Heart Rate 2018-06-30 10:31:00 Memorial [place] Temperature Oral (F) 2018-06-30 10:31:00 96.5 F Memorial [place] Heart Rate 2018-06-30 06:17:00 Memorial [place] Respitory Rate 2018-06-30 06:17:00 Memori al [place] BMI Calculated 2018-06-24 18:20:00 Memori al [place] Weight 2018-06-24 18:20:00 Memorial [place] Height 2018-06-24 18:20:00 152.4 cm [facility] [place] Systolic (mm Hg) 2017-01-10 21:00:00 [place] rial [place] Diastolic (mm Hg) 2017-01-10 21:00:00 Mem orial [place] Respitory Rate 2017-01-10 21:00:00 Memori al [place] Systolic (mm Hg) 2017-01-10 19:00:00 [place] rial [place] Diastolic (mm Hg) 2017-01-10 19:00:00 Mem orial [place] Respitory Rate 2017-01-10 19:00:00 Memori al [place] Systolic (mm Hg) 2017-01-10 18:11:00 [place] rial [place] Diastolic (mm Hg) 2017-01-10 18:11:00 Mem orial [place] Respitory Rate 2017-01-10 18:11:00 Memori al [place] BMI Calculated 2017-01-08 21:38:00 Memori al [place] Weight 2017-01-08 21:38:00 Memorial [place] Height 2017-01-08 21:38:00 152.4 cm [facility] [place] Procedures Procedure Date / Time Performing Clinician Source Performed BASIC METABOLIC PANEL (7) 2020-04-12 04:59:00 Sandra Goodwin [facility] CBC W/PLT COUNT & AUTO 2020-04-12 04:59:00 Sandra Goodwin [facility] HEMODIALYSIS INPATIENT 2020-04-11 13:08:00 Adrian Ching [facility] BASIC METABOLIC PANEL (7) 2020-04-11 04:28:00 Sandra Goodwin [facility] ECG 12-LEAD 2020-04-10 10:33:26 Unknown, Hl7 Doctor [facility] BASIC METABOLIC PANEL (7) 2020-04-10 04:36:00 Sandra Goodwin [facility] HEMODIALYSIS INPATIENT 2020-04-09 20:10:00 Matteo [facility] BASIC METABOLIC PANEL (7) 2020-04-09 04:34:00 Sandra Goodwin [facility] MAGNESIUM 2020-04-09 04:34:00 Felipe, [facility] PHOSPHORUS 2020-04-09 04:34:00 Felipe, [facility] CBC W/PLT COUNT & AUTO 2020-04-09 04:34:00 Sandra Goodwin [facility] HEMODIALYSIS INPATIENT 2020-04-08 00:00:00 Adrian Ching [facility] XR CHEST 1 VIEW 2020-04-07 16:54:00 Maty Otero [facility] - PORTABLE/BEDSIDE [facility] 2D ECHO W/ DOPPLER 2020-04-07 12:16:09 Malathi Gibbons [facility] (CW/PW/COLOR) [facility] HEPATITIS B SURFACE 2020-04-07 11:44:00 Marek Shearer [facility] BASIC METABOLIC PANEL (7) 2020-04-07 05:11:00 Malathi Gibbons [facility] MAGNESIUM 2020-04-07 05:11:00 Malathi Gibbons [facility] PHOSPHORUS 2020-04-07 05:11:00 Malathi Gibbons [facility] B-TYPE NATRIURETIC FACTOR 2020-04-07 05:11:00 Malathi Gibbons [facility] (BNP) [facility] CBC W/PLT COUNT & AUTO 2020-04-07 05:11:00 Malathi Gibbons [facility] [id number] 2019-01-21 00:00:00 ENCPL [id number] 2019-01-21 00:00:00 ENCPL [id number] 2019-01-21 00:00:00 ENCPL [id number] 2019-01-21 00:00:00 ENCPL [id number] 2019-01-21 00:00:00 ENCPL [id number] 2019-01-21 00:00:00 ENCPL [id number] 2019-01-21 00:00:00 ENCPL [id number] 2019-01-21 00:00:00 ENCPL [id number] 2019-01-21 00:00:00 ENCPL [id number] 2019-01-21 00:00:00 ENCPL section [facility] Plan of Care Planned Activity Planned Date [...] Test 00:00:00 (procedure) [code = Medical Center 92022507] Future Scheduled [address] [facility] - Test 00:00:00 malignant neoplasm of [facility] cervix (procedure) [code = 720442678] Future Scheduled [address] [facility] - Test 00:00:00 0-64 YRS (1 of 1 - Medical C enter PPSV23) [code = PNEUMOCOCCAL VACCINE 0-64 YRS (1 of 1 - PPSV23)] Future Scheduled [address] [facility] - Test 00:00:00 malignant neoplasm of [place] [facility] [facility] (procedure) [code = 066590689] Future Scheduled [address] [facility] - Test 00:00:00 [facility] colon (procedure) [code = 799714758] Encounters Start End Encounter Admission Attending Care Care Encounter Source Date/Time Date/Time Type Type Clinicians Facility Department ID 2020-06-29 2020-06-29 Outpatient [facility] [id number] [facility] 2020-05-22 2020-05-22 Outpatient [facility] [id number] [facility] 2020-05-06 2020-05-06 Outpatient [facility] [id number] [facility] 2018-10-08 2018-10-08 [facility] [id number] 13:30:00 13:30:00 [place] [employer] - Drive [facility] 2018-09-05 2018-09-05 [facility] [id number] 11:34:00 11:34:00 t [place] [employer] - [employer] [facility] 2018-08-24 2018-08-24 [facility] [id number] 08:15:00 08:15:00 t [place] [employer] - Drive [facility] Clin[facility] 2018-07-18 2018-07-18 [facility] [id number] 10[facility]54:00 10:54:00 t [place] [employer] - [employer] [facility] 2018-07-11 2018-07-11 [facility] [id number] 11:30:00 11:30:00 t [place] [employer] - [employer] [facility] Out[facility] Clinics 2018-06-24 2018-06-30 Outpatient Kamille [facility] [id number] 11:54:00 15:55:00 Adrian Ely 2017-01-08 2017-01-10 Outpatient [place] [facility] [id number] 21:31:00 18:15:00 Tom Frederick Jose Results Test Description Test Time Test Comments Results Result Comments Source CBC with platelet count + automated diff 2020-04-12 05:41:00 Test Item Value Reference Range Interpretation Comme nts WBC (test code = 6690-2) 17.5 3.5- 10.5 K/L H RBC (test code = 789-8) 3.41 3.93- 5.22 M/L L MCHC (test code = 786-4) 32.0 32.2- 35.5 GM/DL L Hematocrit (test code = 4544-3) 29.4 % 34.1-44.9 L MCV (test code = 787-2) 86.2 fL 79.4-94.8 MCH (test code = 785-6) 27.6 pg 25.6-32.2 RDW (test code = 788-0) 14.2 % 11.7-14.4 Platelets (test code = 777-3) 198 150- 450 K/CU MM MPV (test code = 42643-2) 11.0 fL 9.4-12.3 nRBC (test code = 413) 0 0- 0 /100 WBC % Neutros (test code = 429) 90 % % Lymphs (test code = 430) 3 % % Monos (test code = 431) 7 % % Eos (test code = 432) 0 % % Baso (test code = 437) 0 % # Neutros (test code = 670) 15.67 1.56- 6.13 K/L H # Lymphs (test code = 414) 0.49 1.18- 3.74 K/L L # Monos (test code = 415) 1.17 0.24- 0.36 K/L H # Eos (test code = 416) 0.00 0.04- 0.36 K/L L # Baso (test code = 417) 0.02 0.01- 0.08 K/L Immature Granulocytes-Relative (test code = 2801) 1 % 0-1 Lab Interpretation (test code = 84184-8) Abnormal [facility] W/PLT COUNT & AUTO [id number] 05:41:00 Test Item Value Reference Range Interpretation Comments WHITE BLOOD CELL COUNT (BEAKER) 17.5 K/ L 3.5-10.5 H (test code = 775) RED BLOOD CELL COUNT (BEAKER) 3.41 M/ L 3.93-5.22 L (test code = 761) HEMOGLOBIN (BEAKER) (test code = 9.4 GM/DL 11.2-15.7 L 410) HEMATOCRIT (BEAKER) (test code = 29.4 % 34.1-44.9 L 411) MEAN CORPUSCULAR VOLUME (BEAKER) 86.2 fL 79.4-94.8 (test code = 753) MEAN CORPUSCULAR HEMOGLOBIN 27.6 pg 25.6-32.2 (BEAKER) (test code = 751) MEAN CORPUSCULAR HEMOGLOBIN CONC 32.0 GM/DL 32.2-35.5 L (BEAKER) (test code = 752) RED CELL DISTRIBUTION WIDTH 14.2 % 11.7-14.4 (BEAKER) (test code = 412) PLATELET COUNT (BEAKER) (test 198 K/CU MM 150-450 code = 756) MEAN PLATELET VOLUME (BEAKER) 11.0 fL 9.4-12.3 (test code = 754) NUCLEATED RED BLOOD CELLS 0 /100 WBC 0-0 (BEAKER) (test code = 413) NEUTROPHILS RELATIVE PERCENT 90 % (BEAKER) (test code = 429) LYMPHOCYTES RELATIVE PERCENT 3 % (BEAKER) (test code = 430) MONOCYTES RELATIVE PERCENT 7 % (BEAKER) (test code = 431) EOSINOPHILS RELATIVE PERCENT 0 % (BEAKER) (test code = 432) BASOPHILS RELATIVE PERCENT 0 % (BEAKER) (test code = 437) NEUTROPHILS ABSOLUTE COUNT 15.67 K/ L 1.56-6.13 H (BEAKER) (test code = 670) LYMPHOCYTES ABSOLUTE COUNT 0.49 K/ L 1.18-3.74 L (BEAKER) (test code = 414) MONOCYTES ABSOLUTE COUNT (BEAKER) 1.17 K/ L 0.24-0.36 H (test code = 415) EOSINOPHILS ABSOLUTE COUNT 0.00 K/ L 0.04-0.36 L (BEAKER) (test code = 416) BASOPHILS ABSOLUTE COUNT (BEAKER) 0.02 K/ L 0.01-0.08 (test code = 417) IMMATURE GRANULOCYTES-RELATIVE 1 % 0-1 PERCENT (BEAKER) (test code = 2801) Basic Metabolic [id number] 05:40:00 Test Item Value Reference Range Interpretation Comments Sodium (test code = 134 meq/L 136-145 L 2951-2) Potassium (test code = 4.3 meq/L 3.5-5.1 2823-3) Chloride (test code = 96 meq/L 98-107 L 2075-0) CO2 (test code = 26 meq/L 22-29 8-9) BUN (test code = 31 mg/dL 7-21 H 3094-0) Creatinine (test code 3.76 mg/dL 0.57-1.25 H = 2160-0) Glucose (test code = 166 mg/dL 70-105 H 2345-7) Calcium (test code = 7.7 mg/dL 8.4-10.2 L 41478-2) EGFR (test code = 15 mL/min/1.73 [place] [address]-5) NOT ACCURATE CREATININE CLEARANCE IN PREDICTING GLOMERULAR FILTRATION RATE . ESTIMATED GFR I S NOT APPLICABLE FOR DIALYSIS PATIENTS. MARTHA (test code = MARTHA) Rn Intensive Care Unit ID - PIAYA L Lab Interpretation Abnormal (test code = 20219-2) [facility] [id number] 05:40:00 Test Item Value Reference Range Interpretation Comments SODIUM (BEAKER) 134 meq/L 136-145 L (test code = 381) POTASSIUM (BEAKER) 4.3 meq/L 3.5-5.1 (test code = 379) CHLORIDE (BEAKER) 96 meq/L 98-107 L (test code = 382) CO2 (BEAKER) (test 26 meq/L 22-29 code = 355) BLOOD UREA NITROGEN 31 mg/dL 7-21 H (BEAKER) (test code = 354) CREATININE (BEAKER) 3.76 mg/dL 0.57-1.25 H (test code = 358) GLUCOSE RANDOM 166 mg/dL 70-105 H (BEAKER) (test code = 652) CALCIUM (BEAKER) 7.7 mg/dL 8.4-10.2 L (test code = 697) EGFR (BEAKER) (test 15 mL/min/1.73 ESTIMA SHERYL GFR IS code = 1092) sq m NOT ACCURATE CREATININE CLEARANCE IN PREDICTING GLOMERULAR FILTRATION RATE . ESTIMATED GFR I S NOT APPLICABLE FOR DIALYSIS PATIEN TS. Rn Intensive Care Unit ID - PIAYA LBASIC METABOLIC [id number] 05:21:00 Test Item Value Reference Range Interpretation Comments SODIUM (BEAKER) 133 meq/L 136-145 L (test code = 381) POTASSIUM (BEAKER) 5.1 meq/L 3.5-5.1 (test code = 379) CHLORIDE (BEAKER) 96 meq/L 98-107 L (test code = 382) CO2 (BEAKER) (test 24 meq/L 22-29 code = 355) BLOOD UREA NITROGEN 54 mg/dL 7-21 H (BEAKER) (test code = 354) CREATININE (BEAKER) 5.50 mg/dL 0.57-1.25 H (test code = 358) GLUCOSE RANDOM 135 mg/dL 70-105 H (BEAKER) (test code = 652) CALCIUM (BEAKER) 7.4 mg/dL 8.4-10.2 L (test code = 697) EGFR (BEAKER) (test 10 mL/min/1.73 ESTIMA SHERYL GFR IS code = 1092) sq m NOT ACCURATE CREATININE CLEARANCE IN PREDICTING GLOMERULAR FILTRATION RATE . ESTIMATED GFR I S NOT APPLICABLE FOR DIALYSIS PATIEN TS. ECG 12 [id number] 15:21:22Interface, External Ris In - 04/10/2020 3:21 PM CDTVentricular Rate 53 BPMAtrial Rate 53 BPMP-R Interval 162 msQRS Duration 78 msQ-T Interval 492 msQTC Calculation(Bazett) 461 msP [place] 72 degreesR [place] 18 degreesT [place] 83 degreesSinus bradycardia with Premature atrial complexesNonspecific T wave abnormalityProlonged QTAbnormal ECGWhen compared with ECG of 26-JAN-2016 16:51,Premature atrial complexesare now PresentVent. rate has decreased BY 31 BPMConfirmed by MD KALEB, KIKE Heller ([id number]) on 2019 3:21:20 [facility] METABOLIC [id number] 05:38:00 Test Item Value Reference Range Interpretation Comments SODIUM (BEAKER) 135 meq/L 136-145 L (test code = 381) POTASSIUM (BEAKER) 4.6 meq/L 3.5-5.1 (test code = 379) CHLORIDE (BEAKER) 98 meq/L 98-107 (test code = 382) CO2 (BEAKER) (test 27 meq/L 22-29 code = 355) BLOOD UREA NITROGEN 29 mg/dL 7-21 H (BEAKER) (test code = 354) CREATININE (BEAKER) 3.92 mg/dL 0.57-1.25 H (test code = 358) GLUCOSE RANDOM 158 mg/dL 70-105 H (BEAKER) (test code = 652) CALCIUM (BEAKER) 7.5 mg/dL 8.4-10.2 L (test code = 697) EGFR (BEAKER) (test 14 mL/min/1.73 ESTIMA SHERYL GFR IS code = 1092) sq m NOT ACCURATE CREATININE CLEARANCE IN PREDICTING GLOMERULAR FILTRATION RATE . ESTIMATED GFR I S NOT APPLICABLE FOR DIALYSIS PATIEN TS. Rn Intensive Care Unit ID - EDASIHEMODIALYSIS TWSOVEERU3569-00-09 20:10:00Wanda Yanez RN 04/09/2020 8:38 PMProcedure tolerated well. Vital signs stable.HD duration 4 hours UF 3.8 L via left upper arm AV Fistula. Lab Results Component [...] 179/83 Pulse: 54 Resp: 21 Temp: SpO2: 99%[facility] [id number] 06:37:00 Test Item Value Reference Range Interpretation [...] S NOT APPLICABLE FOR DIALYSIS PATIEN TS. Rn Intensive Care Unit ID - CYNTHIA HanXMcbcbdmsg4406-33-67 06:27:00 Test Item Value Reference Range Interpretation Comments Magnesium (test code = 1.8 mg/dL 1.6-2.6 52316-4) MARTHA (test code = MARTHA) Rn Intensive Care Unit ID - CYNTHIA M Lab Interpretation (test Normal code = 21233-6) [facility] 06:27:00 Test Item Value Reference Range Interpretation Comments Phosphorus (test code = 5.4 mg/dL 2.3-4.7 H 2777-1) MARTHA (test code = MARTHA) Rn Intensive Care Unit ID - CYNTHIA M Lab Interpretation (test Abnormal code = 79907-1) [facility]OS[facility]US2020-10-08 06:27:00 Test Item Value Reference Range Interpretation Comments PHOSPHORUS (BEAKER) (test code = 5.4 mg/dL 2.3-4.7 H 604) Rn Intensive Care Unit ID - CYNTHIA ZRNNMQZZUG0528-60-04 06:27:00 Test Item Value Reference Range Interpretation Comments MAGNESIUM (BEAKER) (test code = 1.8 mg/dL 1.6-2.6 627) Rn Intensive Care Unit ID - CYNTHIA MCBC W/PLT COUNT & AUTO WHADVSOBCAHT2553-76-63 05:31:00 Test Item Value Reference Range Interpretation [...] PERCENT (BEAKER) (test code = 2801) HEMODIALYSIS [id number] 00:00:00Greer Figueroa RN 04/08/2020 12:00 AMLab Results [...] no complaints made. Endorsed to nurse accordingly. [facility], 1 VIEW, NON [id number] 17:24:00 Reason for exam:->dyspneaFINAL REPORT EXAM: Chest one view COMPARISON: January 27, 2016 CLINICAL HISTORY:Dyspnea FINDINGS: There is interval removal of the left internal jugular tunneled dialysis catheter.The cardiac size is mildly prominent. There is no evidence of pulmonary consolidation, pleural effusion, or pneumothorax. The regional osseous structures are unremarkable. Signed: Riccardo Jacobsenort Verified Date/Time: 04/07/2020 17:24:41 Reading Location: [address] Consult Reading Room XR chest 1 view portable / [id number] 17:24:00Interface, External Ris In - 04/07/2020 5:26 PM CDTFINAL REPORT EXAM: Chest one view COMPARISON: January 27, 2016 CLINICAL HISTORY: Dyspnea FINDINGS: There is interval removal of the left internal jugular tunneled dialysis catheter. The cardiac size is mildly prominent. There is no evidence of pulmonary consolidation, pleural effusion, or pneumothorax. The regional osseous structures are unremarkable. 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 Lab Interpretation (test Normal code = 51073-1) [facility] [id number] 12:33:00 Test Item Value Reference Range Interpretation Comments HEPATITIS B SURFACE ANTIGEN (2) Nonreactive Nonreactive (BEAKER) (test code = 2585) Specimen is considered negative for HBsAg.BASIC METABOLIC [id number] 07:08:00 Test Item Value Reference Range Interpretation [...] S NOT APPLICABLE FOR DIALYSIS PATIEN TS. Rn Intensive Care Unit ID - [id number] 06:58:00 Test Item Value Reference Range Interpretation Comments PHOSPHORUS (BEAKER) (test code = 4.6 mg/dL 2.3-4.7 604) Rn Intensive Care Unit ID - UWATSVDQSEWBVC3467-96-44 06:58:00 Test Item Value Reference Range Interpretation Comments MAGNESIUM (BEAKER) (test code = 1.7 mg/dL 1.6-2.6 627) Rn Intensive Care Unit ID - EDASICBC W/PLT COUNT & AUTO IYKVHVXEFWWK2407-69-53 06:13:00 Test Item Value Reference Range Interpretation [...] Range Interpretation Comments BNP (test code = 78213-4) 777 pg/mL 0-100 H MARTHA (test code = MARTHA) Rn Intensive Care Unit ID - RENETTA L Lab Interpretation (test Abnormal code = 63412-6) [facility] Hospital[facility] NATRIURETIC FACTOR (BNP)2020-04-07 05:49:00 Test Item Value Reference Range Interpretation Comments B-TYPE NATRIURETIC PEPTIDE (BEAKER) 777 pg/mL 0-100 H (test code = 700) Rn Intensive Care Unit ID - PIAYA LCHEM [id number] 11:16:002.2[facility]ann[facility]M PANEL 2018-06-30 11:16:004.6[facility]annCHEM YXIUJ4923-63-13 11:16:008[facility]annCHEM DVJHF5483-79-11 11:16:0015[facility]annCHEM AWOUO2036-63-36 11:16:0014[facility]annCHEM JELUH8372-31-91 11:16:003.8[facility]annCHEM JEQMI4744-78-02 11:16:00 Test Item Value Reference Range Interpretation Comments A/G Ratio (test code = A/G Ratio) 0.8 1 0.7-1.6 [facility]annCHE[facility] [id number] 11:16:003.2[facility]annCHEM PANEL 2018-06-30 11:16:007.0[facility]annCHEM RDKSQ6695-72-70 11:16:00 Test Item Value Reference Range Interpretation Comments B/C Ratio (test code = B/C Ratio) 8 1 6-25 [facility]annCHE[facility] [id number] 11:16:000.5[facility]annCHEM PANEL 2018-06-30 11:16:78583Ilscockt HermannCHEM BCUBV1265-79-23 11:16:0088[facility]annCHEM VFBDV1261-46-96 11:16:0048[facility]annCHE[facility] YPWPN4876-80-01 11:16:008.0[facility]annCHE[facility] AFKFE1450-53-42 11:16:0013.5[facility]annCHE[facility] OJNNU5519-66-22 11:16:52883Myigrclg HermannCHEM FDTUU8827-92-57 11:16:0024 [facility]annCHE[facility] RKSEE2518-17-75 11:16:005.89[facility]annCHEM PANEL 2018-06-30 11:16:04387Shzuxhkn HermannCHEM RUTEI8081-87-68 11:16:004.5[facility] WmrswezJOUFYODWHV7532-13-93 11:16:00 Test Item Value Reference Range Interpretation Comments MCH (test code = MCH) 27.7 pg 27.0-31.0 [facility] VhncjcaESNSAJGAGU5315-10-71 11:16:0028.3[facility]annHEMATOLOGY 2018-06-30 11:16:0085.6[facility] VrzbfvmDZBLCHUWOL9047-05-28 11:16:0032.3[facility] CnagdzwNTMHYMHNSG6372-40-24 11:16:0016.0[facility] JxgywgtFCHVDLGMZD4532-47-28 11:16:43218Mfhlpgkv WkwlbpiXRUEGDNWXU8070-53-50 11:16:008.5[facility] VEBGRJWWZQ8065-88-22 11:16:004.4[facility] WzivygsRBDSELFRFX2014-30-95 11:16:00 3.31[facility] PuowagfCCNEDHOGET2313-51-23 11:16:009.2[facility]annHEMATOLOGY 2018-06-30 11:16:000.9[facility] LuckdedXNCRXRFLUQ4273-65-06 11:16:001+ *ABN*(06/30/18 5:16 AM)[facility] QdsftwuTTAUCJCFXX7248-21-30 11:16:000.1[facility] FntliuvNPQFIWTSAB6958-33-08 11:16:0020.2[facility] VronstwSEVNJZLWXK1344-95-67 11:16:000.9[facility] NttnvtmYHEJAVFWYM3520-59-82 11:16:0032.1[facility] OOKXCEUBTW0887-64-04 11:16:001.2[facility] DbfxcivTADVWJWSJH7830-67-11 11:16:002.0 [facility] MptixadUQNZVXYHZK3198-33-10 11:16:001.4[facility]annHEMATOLOGY 2018-06-30 11:16:0045.6[facility] IbhejvzNEXKGGFRAA3444-10-71 11:16:00Normal (06/30/18 5:16 AM)[facility] HermannANEMIA JJSWH9234-01-08 14:13:0061[facility] HermannANEMIA JSASH9813-23-42 14:13:69244Pytmtams HermannANEMIA NALNJ0242-50-17 14:13:66287Bvodxzxk HermannANEMIA YRODZ9294-71-73 14:13:0027[facility] ANEMIA CUXQM5374-26-76 14:13:98120Nxeaaqyq HermannCHEM AMERJ3109-08-43 11:24:00 3.6[facility]annCHEM HIDHN6640-80-60 11:24:002.2[facility]annCHEM PANEL 2018-06-29 11:24:000.5[facility] HermannCHEM ACQEH3988-51-39 11:24:25933Hbakwdfb HermannCHEM KARVA5155-05-74 11:24:0013[facility] HermannCHEM NKTYU0023-43-61 11:24:0014[facility] HermannCHEM WEGTC6096-03-81 11:24:0013[facility]annCHEM VGKSR8385-13-20 11:24:003.0[facility]annCHEM KOQVA6295-06-17 11:24:007.1 [facility]annCHEM NQCXN9134-85-64 11:24:22459Dkeglkjd HermannCHEM PANEL 2018-06-29 11:24:007.6[facility] HermannCHEM XQQQO3757-80-51 11:24:0025[facility] HermannCHEM WZVVS0127-38-81 11:24:004.2[facility] HermannCHEM WFDQV6846-39-33 11:24:12544Orfogzkl HermannCHEM YTNTG6649-16-06 11:24:0095[facility]annCHEM FCFSA0896-63-78 11:24:0030[facility] HermannCHEM VRLSY0553-68-66 11:24:004.15 [facility] HermannCHEM MRTZG7259-43-61 11:24:0013.2[facility] HermannCHEM PANEL 2018-06-29 11:24:00 Test Item Value Reference Range Interpretation Comments A/G Ratio (test code = A/G Ratio) 0.7 1 0.7-1.6 [facility]CHE[facility] NCTWM7563-17-81 11:24:004.1[facility] HermannCHEM PANEL 2018-06-29 11:24:00 Test Item Value Reference Range Interpretation Comments B/C Ratio (test code = B/C Ratio) 7 1 6-25 [facility] SvfcpwvQNITMELMNQ3903-35-95 11:24:008.2[facility]annHEMATOLOGY 2018-06-29 11:24:0016.5[facility] YeccpnwKFNSMLZAKV6427-46-77 11:24:14954Zvprabup HgnyaewQHHIQLKPMX5685-86-43 11:24:0085.3[facility] AswqbisNJHVBWNMVZ3735-90-72 11:24:00 Test Item Value Reference Range Interpretation Comments MCH (test code = MCH) 27.9 pg 27.0-31.0 [facility] DallasNptusgdSAOTWYOHTP4634-33-41 11:24:0032.7[facility] HermannHEMATOLOGY 2018-06-29 11:24:003.40[facility] FjormaeRCNKZRUJBQ3132-64-83 11:24:009.5[facility] RhlcnxqRUUHSBYBUJ6335-20-23 11:24:005.3[facility] GecogmePRTDWMSQWJ8396-75-30 11:24:0029.0[facility] KibhrpkTQYQQHJYRW7822-86-52 11:24:001.6[facility] HGSKPBSBZV0253-11-22 11:24:0020.2[facility] NupknifFLMYLZXFEY4239-08-19 11:24:00 50.7[facility] KpwujugSCFVTPNPAJ7202-87-96 11:24:0027.3[facility] HermannHEMATOLOGY 2018-06-29 11:24:001.1[facility] SyllafiKCULNBODYB6479-65-34 11:24:000.1[facility] MokwkwaKZVCXXTIRM8737-97-90 11:24:000.7[facility] MtzxiwoGWGDHWYUIU3059-64-55 11:24:002.7[facility] XqbbjbsONKZZKZSIO7847-21-07 11:24:001.1[facility] JAZSCYTJUP9757-67-39 11:24:001.5[facility] HermannCHEM MUQQX7684-93-72 11:13:002.2 [facility]annCHEM UGRGJ2140-17-87 11:13:004.1[facility] HermannCHEM PANEL 2018-06-28 11:13:006[facility] HermannCHEM TKFRU5474-41-18 11:13:0025[facility] HermannCHEM GLRWZ6791-13-20 11:13:0094[facility] HermannCHEM JPUPS9878-87-34 11:13:0049[facility] HermannCHEM VPOFA1972-17-71 11:13:004.3[facility] HermannCHEM TIMNA5983-29-69 11:13:007.38[facility] HermannCHEM VGQNH3920-18-45 11:13:96752 [facility]annCHEM IAOHB3945-42-78 11:13:86616Qlfjahmw HermannCHEM PANEL 2018-06-28 11:13:003.1[facility] HermannCHEM AAMLI3175-45-93 11:13:007.6[facility] HermannCHEM HHNIP0827-30-33 11:13:006.9[facility] HermannCHEM RVUNC5588-93-11 11:13:0013[facility] HermannCHEM SWRPQ8881-09-15 11:13:93649Nmtgfcqz HermannCHEM BBHYR1287-69-81 11:13:0011[facility] HermannCHEM RWNKT3830-30-01 11:13:000.5 [facility]annCHEM JEOQC2925-94-45 11:13:003.8[facility] HermannCHEM PANEL 2018-06-28 11:13:00 Test Item Value Reference Range Interpretation Comments B/C Ratio (test code = B/C Ratio) 7 1 6-25 [facility] HermannCHEM YNDDC8936-46-17 11:13:00 Test Item Value Reference Range Interpretation Comments A/G Ratio (test code = A/G Ratio) 0.8 1 0.7-1.6 [facility] HermannCHEM GUQKL6688-06-11 11:13:0012.3[facility] HermannHEMATOLOGY 2018-06-28 11:13:008.5[facility] FuhoolwADUEKBKBEE5969-52-59 11:13:78494Difpvmbu RlztvlcSGZSKLMNOH9866-54-52 11:13:0016.0[facility] ClyvtaxSGWJJRSMKT5417-17-23 11:13:0031.5[facility] MvudvetHOTURPKMOX1865-44-33 11:13:00 Test Item Value Reference Range Interpretation Comments MCH (test code = MCH) 26.9 pg 27.0-31.0 [facility] TobdyrlMXRORLEUEK1428-05-76 11:13:0085.6[facility] HermannHEMATOLOGY 2018-06-28 11:13:0029.4[facility] CswbttuSLRHDMJUZU3145-97-89 11:13:003.43[facility] FeqodvuBIZHMVKQLN6347-09-78 11:13:005.1[facility] KumghqnTLRWQKTYGA0671-83-63 11:13:009.2[facility] WmlcixtRNSLTUDMTU2843-31-58 11:13:000.1[facility] XKLLWCUGAA3270-41-30 11:13:000.1[facility] KhvlusrYQJEYDHRKB3105-75-49 11:13:000.9 [facility] LefanmbXYMZCYZNPS9181-28-68 11:13:0017.7[facility] HermannHEMATOLOGY 2018-06-28 11:13:0052.2[facility] PwuiuntWFUZPMOMVS2761-81-38 11:13:0027.8[facility] UhahcjsEIWRNMMKGA3923-11-81 11:13:001.4[facility] DglkjumJAKOTBIAXF4888-32-45 11:13:002.7[facility] LryueprIGZOETWHYE1727-92-11 11:13:001.0[facility] YYGUYGJGXC5222-04-54 11:13:001.3[facility] HermannAMINO UMHF3701-27-74 19:12:75056 [facility]annAMINO QYOC6919-80-34 19:12:0040.6[facility] HermannANEMIA STUDY 2018-06-27 19:12:75332Kugzyink HermannCHEM CHPAF4280-62-09 19:12:0029.0[facility] RygtrgrCBVUKOQYXS6752-76-61 19:12:00Non-Reactive (06/27/18 1:12 PM)[facility]annMOLECULAR BPIPFIVRQI7315-31-29 20:58:00<1.2[facility]annMOLECULAR BFJFWDENHD6356-53-07 20:58:00Not Detected (06/26/18 2:58 PM)[facility]INE AND BPIHN1680-06-06 14:03:002[facility]annURINE AND IIBUC8687-56-28 14:03:00Negative (06/26/18 8:03 AM)[facility] RKOAV8911-09-17 14:03:00Negative (06/26/18 8:03 AM)[facility] SMMJH8644-09-75 14:03:00<1[facility] AND GOJSS6825-36-38 14:03:00Negative (06/26/18 8:03 AM)[facility] AND WZGVP7935-43-75 14:03:00 Test Item Value Reference Range Interpretation Comments UA pH (test code = UA pH) 7.5 1 5.0-8.0 [facility] UOMUM4158-87-59 14:03:00Negative *NA*(06/26/18 8:03 AM)[facility] IDTZL0076-75-85 14:03:00Light Yellow *NA*(06/26/18 8:03 AM)[facility] RPJRA3890-75-49 14:03:00 Test Item Value Reference Range Interpretation Comments UA Spec Grav (test code = UA Spec 1.004 1 Grav) [facility] SZTBI9355-80-56 14:03:00Clear (06/26/18 8:03 AM) [facility] JicubvqBAOKOJKAIS4806-02-76 19:39:0066.7[facility] HermannIMMUNOLOGY 2018-06-24 19:39:00Positive *ABN*(06/24/18 1:39 PM)[facility] HermannIMMUNOLOGY 2018-06-24 19:39:00Negative *NA*(06/24/18 1:39 PM)[facility] HermannIMMUNOLOGY 2018-06-24 19:39:00Negative *NA*(06/24/18 1:39 PM)[facility] HermannIMMUNOLOGY 2018-06-24 19:39:00Negative *NA*(06/24/18 1:39 PM)[facility]annBACTERIAL - UJQIXMUP5206-16-42 19:05:00Negative (06/24/18 1:05 PM)[facility]annCARDIAC VABGDUV1288-79-18 19:05:000.05[facility] HermannCARDIAC NJWMGNE1366-04-57 19:05:00 1953[facility]annCARDIAC XPVPKIO3600-39-30 19:05:4185450Tlsruvpj HermannCHEM BTFAN0730-32-92 19:05:000.1[facility] HermannCHEM FOZZE6242-69-42 19:05:000.8 [facility] TjmqrchSGRTMXWUEB5934-45-49 19:05:00 Test Item Value Reference Range Interpretation Comments PTT (test code = PTT) 36.4 s 22.9-35.8 [facility] SuoohkbZNSDMTZOFT8240-26-38 19:05:00 Test Item Value Reference Range Interpretation Comments PT (test code = PT) 15.4 s 12.0-14.7 [facility] HtxbqqzSJVOMEWCHO2847-59-28 19:05:00 Test Item Value Reference Range Interpretation Comments INR (test code = INR) 1.24 1 0.85-1.17 [facility] AbqyubgKZRFMQQNUE9943-81-10 19:05:000.1[facility] HermannIMMUNOLOGY 2018-06-24 19:05:00Negative *NA*(06/24/18 1:05 PM)[facility]annMOLECULAR ORUJHEGPYH6501-94-77 19:05:00Negative (06/24/18 1:05 PM)[facility] MOLECULAR ACSRXOTITE8164-54-48 19:05:00[employer] Swab (06/24/18 1:05 PM) [facility]annMOLECULAR TKZUPMJIMX2671-99-73 19:05:00Negative (06/24/18 1:05 PM)[facility]annMOLECULAR PUGHBCOYST1979-12-48 19:05:00Negative (06/24/18 1:05 PM)[facility] HermannPARATHYROID WBQOUII2921-08-75 19:05:000.92[facility] HermannPARATHYROID EAZCOGH4418-76-80 19:05:000.86[facility]ann[facility]M PANEL 2017-01-10 07:46:0014[facility]annCHEM WITFH4858-31-00 07:46:003.84[facility]annCHE[facility] ZXZPL7856-46-50 07:46:008.3[facility]ann[facility] QUMFK4707-50-43 07:46:0010.1[facility]ann[facility] TTDOO6200-25-85 07:46:0032[facility]annCHE[facility] CLYJR3713-92-55 07:46:69733Bgucpxdt HermannCHEM YUWRS3617-88-88 07:46:004.1 [facility] GHUAG8505-08-53 07:46:18709Uopsygid HermannCHEM PANEL 2017-01-10 07:46:009[facility]ann[facility] BKCBJ4562-48-23 07:46:0091[facility]ann[facility] MBMSC2669-25-95 07:46:002.6[facility] WiuhcsaJQFXYTCXVX9060-74-93 23:45:00Negative *NA*(01/09/17 6:45 PM)[facility] VLFHYV9376-58-20 23:00:00See Note *NA*(01/08/17 6:00 PM)[facility] ETBGVP3581-45-98 23:00:00Negative *NA*(01/08/17 6:00 PM)[facility] TFBJCN0379-11-93 23:00:00Negative *NA*(01/08/17 6:00 PM)[facility] FFOKDD1528-74-85 23:00:00Negative *NA*(01/08/17 6:00 PM)[facility] BJBBNQ9480-52-38 23:00:00Negative *NA*(01/08/17 6:00 PM)[facility] UGTXKU5868-75-15 23:00:00Negative *NA*(01/08/17 6:00 PM)[facility] OPHMGZ6616-11-35 23:00:00Negative *NA*(01/08/17 6:00 PM)[facility] BWMQJO5211-19-54 23:00:00Negative *NA*(01/08/17 6:00 PM)[facility] CKLMR4828-10-10 23:00:00>=9.0 *ABN*(01/08/17 6:00 PM)[facility] ZINSV5949-24-49 23:00:00<1[facility] QKEBA4502-20-00 23:00:001[facility] AND PNFVW4576-54-01 23:00:001.004[facility] BUVTB1313-37-81 23:00:00Negative (01/08/17 6:00 PM)[facility] GVZFE9065-11-12 23:00:00Clear (01/08/17 6:00 PM)[facility] EZEEP6580-47-61 23:00:00 Negative *NA*(01/08/17 6:00 PM)[facility] XAOUP1268-61-30 23:00:00 Negative (01/08/17 6:00 PM)[facility] LXLOX4384-53-15 23:00:00 Negative (01/08/17 6:00 PM)[facility] QkqdqloFJAXGROHFW6556-67-56 22:21:00 Test Item Value Reference Range Interpretation Comments PTT (test code = PTT) 36.2 s 22.9-35.8 [facility] BvtijckUEULWSPLQK9571-45-67 22:21:001.05[facility]annHEMATOLOGY 2017-01-08 22:21:00 Test Item Value Reference Range Interpretation Comments PT (test code = PT) 13.9 s 12.0-14.7 [facility] XdamdbyIEJNHT6826-52-19 22:21:0022[facility] KuxyyptPBIUWP5202-76-20 22:21:0050[facility] RdtjlogIVYJHM6034-89-70 22:21:12346Jigeidgk HermannLIPIDS 2017-01-08 22:21:69031Cbbbyaaq HwicjfoWOLHOL1926-53-07 22:21:0073[facility] PenjqnuELPVOP2729-89-06 22:21:001.99[facility] HermannSPECIAL SMBBNJUFU0030-64-79 22:21:004.6[facility]annCHEM SLVXK4191-46-51 22:20:003[facility]annCHEM RQRPL1016-30-21 22:20:0014.4[facility]annCHEM TUJIH1382-73-96 22:20:005.5 [facility] OOISW9643-36-21 22:20:000.6[facility]annCHEM PANEL 2017-01-08 22:20:008[facility]annCHE[facility] FGYGV1144-60-93 22:20:0085[facility]annCHE[facility] BMYJP3026-54-33 22:20:0026[facility]annCHEM FNSCT6018-42-93 22:20:0014[facility]annCHE[facility] ZZXKJ8838-92-17 22:20:006.23[facility]annCHE[facility] TLDXI4896-85-89 22:20:003.3[facility]annCHEM IHOMW6297-71-50 22:20:0016 [facility]annCHE[facility] RKKJX3758-28-65 22:20:0024[facility]annCHEM PANEL 2017-01-08 22:20:000.5[facility]annCHE[facility] WLKSX0633-52-90 22:20:008.8[facility]annCHEM SNXNL0477-00-16 22:20:75892Kesboxsg HermannCHEM YIKTE6962-60-77 22:20:62963Cbywghuy HermannCHEM YARKA8355-67-48 22:20:005.4[facility]annCHEM RDTFG1656-51-17 22:20:009.1[facility]annCHE[facility] VDBFK2372-20-69 22:20:71108 [facility]annCHE[facility] BBKHY7081-32-73 22:20:002.4[facility] HermannHEMATOLOGY 2017-01-08 22:20:0010.5[facility] GrkvixwUYLJEQDLPG8776-39-91 22:20:0031.5[facility] PliwazyRBTWUAGHQS0016-44-21 22:20:009.0[facility] TcqyeadJWWUJTEIHW8609-66-14 22:20:003.70[facility] LykqsfqUVKKMIVQGT1869-55-39 22:20:0085.3[facility] RKBKAPTBGI1998-99-39 22:20:00 Test Item Value Reference Range Interpretation Comments MCH (test code = MCH) 28.5 pg 27.0-31.0 [facility] TupfcgoPTFYOSYSAN8119-67-72 22:20:0033.4[facility] HermannHEMATOLOGY 2017-01-08 22:20:0012.9[facility] YzensfhCLINDDRDKR7817-80-96 22:20:18407Dzhejhvy HrjesmrMCXOQYETHV8544-42-20 22:20:009.0[facility] EmfuwezKHNESUSXYM8015-93-80 22:20:0012.8[facility] TmryvxtLGEMPTRIJN9391-43-03 22:20:0043.7[facility] CHXFPQYXER1698-54-75 22:20:0040.4[facility] GjixmrpUTMCFEFZCF4577-49-10 22:20:00 4.0[facility] WzdrgqeSOTWNQLBNZ0640-81-25 22:20:001.9[facility] HermannHEMATOLOGY 2017-01-08 22:20:001.2[facility] RrgudycNRKAONOVLG5383-42-06 22:20:003.7[facility] RfavijpFPHTPOHOYQ0370-26-16 22:20:001.2[facility] ZobnrhcZCQDMCCZBN8038-15-34 22:20:000.2[facility] ZqtumctBNMXRNUXPE3066-13-51 22:20:000.1[facility]
--- OUTSIDE RECORDS SUMMARY | 2020-07-18 14:39 | XMS REPORT ---
:1960 Author Organization [facility] Address [address] [place] [place] [address] Care Team Providers Name Role Phone Med Unavailable [phone] PROBLEMS Type Condition ICD9-CM [id number] Onset Condition SNOMED Code Notes Code Code Dates Status Problem Chronic J44.9 Active 89395165 obstructive pulmonary disease, unspecified COPD type Problem HTN, goal I10 Active 93520490 below 130/80 Problem Tobacco use F17.200 Active 913021192 disorder Problem End stage N18.6 Active 997852533 renal disease Problem Depression F41.8 Active 54898334 with anxiety Problem Hyp chr kidney I12.0 Active 08285143528877 disease w stage 5 chr kidney disease or ESRD Problem Dependence on Z99.2 Active 236070987 renal dialysis Problem Current F32.1 Active 02425330 moderate episode of major depressive disorder without prior episode Problem History of CVA I69.30 Active 821732513 with residual deficit Problem History of Z86.711 Active 250346416 pulmonary embolism Problem Coronary I25.10 Active 0339994408564 artery disease involving [place] coronary artery of [place] heart, angina presence unspecified Problem Insomnia, G47.00 Active 215213873 unspecified type Problem Vascular F01.51 Active 486124719947614 dementia with behavior disturbance ALLERGIES No Known Allergies ENCOUNTERS from 1960 to 2020-06-29 Encounter Location Date [facility] [address], [place] [address] IMMUNIZATIONS No Information SOCIAL HISTORY Tobacco Use: Social History Observation Description Date Details (start date - stop date) Current Smoker Sex Assigned At : Social History Observation Description Sex Assigned At Unknown PHQ9 Question Answer Notes Little interest or pleasure in doing things Several days Feeling down, depressed, or hopeless More than half the days Trouble falling or staying asleep or sleeping too much More than half the days Feeling tired or having little energy More than half the day s Poor appetite or overeating Several days Feeling bad about yourself, or that you are a failure, Sever al days or have let yourself or your family down Trouble concentrating on things, such as reading the Not at all newspaper or watching television Moving or speaking so slowly that other people could Not at all have noticed; or the opposite, being so fidgety or restless that you have been moving around a lot more than usual Total Score 9 Interpretation Mild Depression Thoughts that you would be better off or of Not at all hurting yourself in some way Alcohol Screen Question Answer Notes Did you have a drink containing alcohol in the past year? No Points 0 Interpretation Negative Tobacco Use/Smoking Question Answer Notes Are you a current smoker How many cigarettes a day do you smoke? 6-10 How often do you smoke cigarettes? every day REASON FOR REFERRAL No Information VITAL SIGNS No information MEDICATIONS Medication SIG (Take, Route, Notes Start Date End Date Status Frequency, Duration) Ventolin HFA 108 (90 2 puffs as needed Jul, Active Base) MCG/ACT Inhalation every 6 hrs for 30 days Clonidine HCl 0.2 MG 1 tablet Orally Twice Active a day for 90 days Isosorbide Mononitrate 1 tablet in the Active 30 MG morning Orally Once a day Ramipril 5 MG 1 capsule Orally Once Active a day for 90 days Ramipril 5 MG 1 capsule Orally Once Not-Taking a day for 90 Breo Ellipta 200-25 1 puff Inhalation Once Active MCG/INH a day for 30 days Carvedilol 12.5 MG as directed Orally BID Active for 90 days Isosorbide Mononitrate TAKE 1 TABLET BY MOUTH Not-Taking ER 30 MG EVERY DAY IN THE MORNING for 90 Renvela 800 MG 1 tablet with meals A ctive Orally Three times a day for 90 days - Active Isosorbide Mononitrate 1 tablet in the Not-Taking 30 MG morning Orally Once a day for 90 Trazodone HCl 50 MG 1 tablet at bedtime as Active needed Orally Once a day for 90 days PROCEDURES No Information RESULTS No Results REASON FOR VISIT Rx nebulizer, alb nebs MEDICAL (GENERAL) HISTORY Type Description Date Medical History HTN, goal below 130/80 Medical History End stage renal disease Medical History Dependence on renal dialysis Medical History Depression with anxiety Medical History Insomnia, unspecified type Medical History History of CVA with residual deficit Medical History Vascular dementia without behavioral dis turbance Medical History Chronic obstructive pulmonary disease, u nspecified COPD type Medical History Tobacco use disorder Surgical History History of PE 2014 Goals Section No Information Health Concerns No Information MEDICAL EQUIPMENT No Information MENTAL STATUS No Information FUNCTIONAL STATUS No Information ASSESSMENTS No Information PLAN OF TREATMENT Medication Medication Name Sig Start Date Stop Date Trazodone HCl 50 MG 1 tablet at bedtime as needed Orally Once a day for 90 days Breo Ellipta 200-25 MCG/INH 1 puff Inhalation Once a day for 30 days Clonidine HCl 0.2 MG 1 tablet Orally Twice a day for 90 days Carvedilol 12.5 MG as directed Orally BID for 90 days Isosorbide Mononitrate 30 MG 1 tablet in the morning Orally Once a day Ramipril 5 MG 1 capsule Orally Once a day for 90 days Renvela 800 MG 1 tablet with meals Orally Three times a day for 90 days Next Appt Details Provider Name:Patrick Natalia Jovel, 2020-07-27 09:45:00 AM, [address], [place], [address], Provider Name:Patrick Jovel, 2020-08-03 03:30:00 PM, [address], [place], [address], Provider Name:Patrick Jovel, 2020-08-03 03:30:00 PM, [address], [place], [address], Insurance Providers Payer Name Payer Address Payer Insured Patient Coverage Cover age Phone Name Relationship to Start Date End Date Insured MEDICARE Attn Part B [id number] Ochoa,Peg charlee 2011 [employer] [address] [facility] [address] [facility] [address] [phone] Brisa Ochoa charlee 2018 [facility] [address] [phone]
--- OUTSIDE RECORDS SUMMARY | 2020-07-18 14:39 | XMS REPORT ---
:1960 Author Organization [facility] Address [address] [place] [place] [address] Care Team Providers Name Role Phone Jovel Unavailable [phone] PROBLEMS Type Condition ICD9-CM [id number] Onset Condition SNOMED Code Notes Code Code Dates Status Problem Tobacco use F17.200 Active 445182386 disorder Problem End stage N18.6 Active 169551091 renal disease Problem Depression F41.8 Active 98206908 with anxiety Problem Chronic J44.9 Active 50371713 obstructive pulmonary disease, unspecified COPD type Problem Vascular F01.51 Active 336851694939854 dementia with behavior disturbance Problem Dependence on Z99.2 Active 250236075 renal dialysis Problem Hyp chr kidney I12.0 Active 84552923346264 disease w stage 5 chr kidney disease or ESRD Problem History of CVA I69.30 Active 903403868 with residual deficit Problem History of Z86.711 Active 744066223 pulmonary embolism Problem Coronary I25.10 Active 1269080299270 artery disease involving [place] coronary artery of [place] heart, angina presence unspecified Problem HTN, goal I10 Active 07544370 below 130/80 Problem Insomnia, G47.00 Active 599468244 unspecified type ALLERGIES No Known Allergies ENCOUNTERS from 1960 to 2020-05-06 Encounter Location Date [facility] [address], [facility] Jovel Dep endence on renal [facility] [address], [facility] [address] ; [place] [address] Coronary arter y disease involvi ng [place] coronary artery of nativ e heart, angina presence unspec ified I25.10 ; End st age renal disease N 18.6 ; HTN, goal below 130/80 I10 ; Hi story of CVA with res idual deficit I69.30 ; Hyp chr kidney dise ase w stage 5 chr kid alyse disease or ESRD I12.0 ; Vascular kavita ntia with behavior disturbance F01 .51 and Depression with anxiety F41.8 IMMUNIZATIONS No Information SOCIAL HISTORY Tobacco Use: [...] No information MEDICATIONS Medication SIG (Take, Route, Start Date End Date Status Frequency, Duration) Renvela 800 MG 1 tablet with meals Orally Active Three times a day for 90 days Isosorbide Mononitrate 30 MG 1 tablet in the morning Active Orally Once a day for 90 Aspir-81 Active Trazodone HCl 50 MG 1 tablet at bedtime as Active needed Orally Once a day for 90 days Carvedilol 12.5 MG as directed Orally BID for Active 90 days Isosorbide Mononitrate 30 MG 1 tablet in the morning Active Orally Once a day Breo Ellipta 200-25 MCG/INH 1 puff Inhalation Once a Active day for 30 days Isosorbide Mononitrate ER 30 TAKE 1 TABLET BY MOUTH Active MG EVERY DAY IN THE MORNING for 90 Ventolin HFA 108 (90 Base) 2 puffs as needed Jul, Active MCG/ACT Inhalation every 6 hrs for 30 days Ramipril 5 MG 1 capsule Orally Once a day Active for 90 Ramipril 5 MG 1 capsule Orally Once a day Active for 90 days Clonidine HCl 0.2 MG 1 tablet Orally Twice a day Active for 90 days PROCEDURES No Information RESULTS No Results REASON FOR VISIT refer card, needs appt MEDICAL (GENERAL) HISTORY Type Description Date Medical [...] use disorder Surgical History History of PE 2015 Goals Section No Information Health Concerns No Information MEDICAL EQUIPMENT No Information MENTAL STATUS No Information FUNCTIONAL STATUS No Information ASSESSMENTS Encounter Date Diagnosis Notes May, Coronary artery disease involving [place] coronary artery of [place] heart, angina presence unspecifie d (ICD-10 - I25.10) May, Dependence on renal dialysis (ICD-10 - Z 99.2) May, HTN, goal below 130/80 (ICD-10 - I10) May, End stage renal disease (ICD-10 - N18.6) May, Hyp chr kidney disease w stage 5 chr kid alyse disease or ESRD (ICD-10 - I12.0) May, History of CVA with residual deficit (IC D-10 - I69.30) May, Depression with anxiety (ICD-10 - F41.8) May, Vascular dementia with behavior disturba nce (ICD-10 - F01.51) PLAN OF TREATMENT Medication Medication Name Sig Start Date Stop Date Renvela 800 MG 1 tablet with meals Orally Three times a day for 90 days Ramipril 5 MG 1 capsule Orally Once a day for 90 Ramipril 5 MG 1 capsule Orally Once a day for 90 days Isosorbide Mononitrate ER 30 MG TAKE 1 TABLET BY MOUTH EVERY DAY IN THE MORNING for 90 Trazodone HCl 50 MG 1 tablet at bedtime as needed Orally Once a day for 90 days Isosorbide Mononitrate 30 MG 1 tablet in the morning Orally Once a day for 90 Carvedilol 12.5 MG as directed Orally BID for 90 days Isosorbide Mononitrate 30 MG 1 tablet in the morning Orally Once a day Breo Ellipta 200-25 MCG/INH 1 puff Inhalation Once a day for 30 days Clonidine HCl 0.2 MG 1 tablet Orally Twice a day for 90 days Treatment Notes Test Name Order Date Lipid Panel With LDL/HDL Ratio 2020-05-06 Comp. Metabolic Panel (14) (CMP) 2020-05-06 TSH 2020-05-06 CBC With Differential/Platelet 2020-05-06 Next Appt Details Provider Name:Patrick Jovel 2020-05-15 1 0:50:00 AM, [address], [place], [address], Provider Name:Patrick Jovel 2020-05-22 1 0:10:00 AM, [address], [place], [address], Insurance Providers Payer Name Payer Address Payer Insured Patient Coverage Cover age Phone Name Relationship to Start Date End Date Insured MEDICARE Attn Part B [id number] Brisa Ochoa 2018 [employer] [address] [facility] [address] [facility] [address] [phone] Brisa Ochoa 2018 [facility] [address] [phone]
--- OUTSIDE RECORDS SUMMARY | 2020-07-18 14:39 | XMS REPORT ---
:1960 Author Organization [facility] Address [address] [place] [place] [address] Care Team Providers Name Role Phone Med Unavailable [phone] PROBLEMS Type Condition ICD9-CM [id number] Onset Condition SNOMED Code Notes Code Code Dates Status Problem Chronic J44.9 Active 87876834 obstructive pulmonary disease, unspecified COPD type Problem HTN, goal I10 Active 46620857 below 130/80 Problem Tobacco use F17.200 Active 400409705 disorder Problem End stage N18.6 Active 122334770 renal disease Problem Depression F41.8 Active 08699584 with anxiety Problem Hyp chr kidney I12.0 Active [id number] disease w stage 5 chr kidney disease or ESRD Problem Dependence on Z99.2 Active 534144845 renal dialysis Problem Current F32.1 Active 62671809 moderate episode of major depressive disorder without prior episode Problem History of CVA I69.30 Active 466149064 with residual deficit Problem History of Z86.711 Active 036338492 pulmonary embolism Problem Coronary I25.10 Active 2831922987800 artery disease involving [place] coronary artery of [place] heart, angina presence unspecified Problem Insomnia, G47.00 Active 692727599 unspecified type Problem Vascular F01.51 Active [id number] dementia with behavior disturbance ALLERGIES No Known Allergies ENCOUNTERS from 1960 to 2020-05-22 Encounter Location Date Provider Diagnosis [facility] [address] [place] May, Patrick Jovel HTN , goal below Family [facility] [address], 130/80 I10 ; [place] [address] dementia with behavior distur bance F01.51 ; End st age renal disease N 18.6 ; Dependence on r enal dialysis Z99.2 ; Current moderat e episode of carol r depressive diso rder without prior e pisode F32.1 ; Insomni a, unspecified typ e G47.00 ; Histor y of CVA with residu al deficit I69.30 ; Chronic obstruc tive pulmonary disea se, 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 ; Coronar y artery disease involving nativ e coronary artery of [place] heart, a ngina presence unspec ified I25.10 ; Tobacc o use disorder F17.20 0 ; History of pulm onary embolism Z86.71 1 and Depression with anxiety F41.8 IMMUNIZATIONS No [...] REASON FOR REFERRAL No Information VITAL SIGNS Height 65 in May, Weight 160.3 lbs May, Temperature 97.3 degrees Fahrenheit May, BMI 26.67 kg/m2 May, Oximetry 100 % May, Respiratory Rate 17 /min May, Blood pressure systolic 148 mm Hg May, Blood pressure diastolic 71 mm Hg May, MEDICATIONS Medication SIG (Take, Route, Notes Start [...] Three times a day for 90 days Aspir-81 Active Isosorbide Mononitrate 1 tablet in the Not-Taking 30 MG morning Orally Once a day for 90 Trazodone HCl 50 MG 1 tablet at bedtime as Active needed Orally Once a day for 90 days PROCEDURES No Information RESULTS No Results REASON FOR VISIT F/u with labs [facility] (GENERAL) HISTORY Type Description Date Medical [...] STATUS No Information ASSESSMENTS Encounter Date Diagnosis Assessment Notes Treatment Notes Treatm ent Clinical Notes May, HTN, goal below Controlled. 130/80 (ICD-10 - Instructed to I10) measure BP at home and bring in log. Education given. , HTN Education This is a condition that puts at risk for heart attack, stroke, and kidney disease. Lifestyle modification, low fat/low salt diet, exercise, low alcohol intake and medication is utilized to help control your BP. Untreated HTN increases the strain on the heart and arteries, eventually causing organ damage.Normal BP is less than 140/90. High BP is greater than 140/90. If your BP is not controlled, call your doctor. Medication may need to be adjusted and/or added. Compliance with medication is vital. If you have chest pain, shortness of breath, severe nausea/vomiting, fatigue, and other symptoms, you will need to contact your doctor or go to the ER immediately to address. May, Vascular dementia Managed by with behavior . ASA. disturbance Education given. (ICD-10 - F01.51) May, End stage renal Managed by disease (ICD-10 - / N18.6) Encouraged on compliance. Education given. May, Dependence on renal dialysis (ICD-10 - Z99.2) May, Current moderate episode of major depressive disorder without prior episode (ICD-10 - F32.1) May, Insomnia, Stable. Discussed unspecified type Good Sleep Hygiene. (ICD-10 - G47.00) May, History of CVA Not on any ASA. with residual Referral to Neuro. deficit (ICD-10 - +Unsteadiness(Using I69.30) cane). No recent falls. May, Chronic Stable. No recent obstructive eacerbation. pulmonary disease, Continues to use unspecified COPD tobacco. On inhaler: type (ICD-10 - Unsure of name. , J44.9) COPD Education: This is condition in which the airways in the lungs become damaged, making it increasingly difficult for air to pass in and out. Symptoms may include: shortness of breath, chronic cough, chest pain, fatigue with exertion and other. Compliance with medication is vital to control the symptoms and to slow the progression of the disease. Symptoms of COPD cannot be completely eliminated with treatment. COPD usually worsens over time. If your symptoms acutely worsen, please contact the doctor. This may indicate a need to adjust and/or add medication. Pulmonary consultation maybe be required if symptoms do not improve. May, Coronary artery Managed by Dr. Rome. disease involving education given. [place] coronary artery of [place] heart, angina presence unspecified (ICD-10 - I25.10) May, Tobacco use Strongly encourged disorder (ICD-10 - on cessation. F17.200) Education given. Counseling given. Pick a quit date. , Education, counseling done at this visit, offered web sites and medicine to help. Patient is refusing at this time. We did discussed not only the CAD risk also the risk for multiples cancers, peripheral neuropathy, etc. www.quit.com gives you tip[s and tricks, quit smoking chelist, download my quit jessica and read quit smoking benefits too. More than 3 min spent with patient. May, History of Unsure. Education pulmonary embolism given. ROR signed. (ICD-10 - Z86.711) on ASA. May, Depression with Education given. On anxiety (ICD-10 - Trazodone. Working F41.8) well. Denies SI/HI. , -- Depression Education: Depression is a brain disease that makes you sad, but it is different than normal sadness. Depressed people feel down most of the time for at least 2 weeks. They also have at least one of these 2 symptoms: 1. They no longer enjoy or care about doing the things they used to like to do. 2. They feel sad, down, hopeless, or cranky most of the day, almost every day. It can also make you: lose or gain weight; sleep too much or too little; fell tired or like you have no energy; feel guilty or like you are worth nothing; forget things or feel confused; and think about or suicide. Medication and/or seeing a counselor (such as a psychiatrist, psychologist, nurse or social and political studies professor) may be necessary to treat depression. Both treatments take time to work. If you ever feel like you might hurt yourself or some else, then call your doctor or call 911 or go to the ER. May, Other -- Medication reviewed and updated. -- Dietary and Lifestyle modifications addressed regarding diet, exercise and weight managemen t. -- Treatment options, risks and benefits, side effects reviewed in detail. -- Advised on signs/symptoms to monitor and when to call clinic and/or visit the nearest ER. Patient verbalized understanding and agreeable with plan. PLAN OF TREATMENT Medication Medication Name Sig [...] Three times a day for 90 days Treatment Notes Assessment Notes Clinical Notes HTN, goal below 130/80 Controlled. Instructed to measure BP at home and bring in log. Education given. , HTN Education This is a condition that puts at risk for heart attack, stroke, and kidney disease. Lifestyle modification, low fat/low salt diet, exercise, low alcohol intake and medication is utilized to help control your BP. Untreated HTN increases the strain on the heart and arteries, eventually causing organ damage.Normal BP is less than 140/90. High BP is greater than 140/90. If your BP is not controlled, call your doctor. Medication may need to be adjusted and/or added. Compliance with medication is vital. If you have chest pain, shortness of breath, severe nausea/vomiting, fatigue, and other symptoms, you will need to contact your doctor or go to the ER immediately to address. Vascular dementia with behavior Managed by . ASA. disturbance Education given. End stage renal disease Managed by / Encouraged on compliance. Education given. Insomnia, unspecified type Stable. Discussed Good Sleep Hygiene. History of CVA with residual Not on any ASA. Referral to Levi cheung. deficit +Unsteadiness(Using cane). No recent falls. Chronic obstructive pulmonary Stable. No recent eacerbation. disease, unspecified COPD type Continues to use tobacco. On inhaler: Unsure of name. , COPD Education: This is condition in which the airways in the lungs become damaged, making it increasingly difficult for air to pass in and out. Symptoms may include: shortness of breath, chronic cough, chest pain, fatigue with exertion and other. Compliance with medication is vital to control the symptoms and to slow the progression of the disease. Symptoms of COPD cannot be completely eliminated with treatment. COPD usually worsens over time. If your symptoms acutely worsen, please contact the doctor. This may indicate a need to adjust and/or add medication. Pulmonary consultation maybe be required if symptoms do not improve. Coronary artery disease involving Managed by Dr. Rome. educat ion [place] coronary artery of [place] given. heart, angina presence unspecified Tobacco use disorder Strongly encourged on cessation. Education given. Counseling given. Pick a quit date. , Education, counseling done at this visit, offered web sites and medicine to help. Patient is refusing at this time. We did discussed not only the CAD risk also the risk for multiples cancers, peripheral neuropathy, etc. www.quit.com gives you tip[s and tricks, quit smoking chelist, download my quit jessica and read quit smoking benefits too. More than 3 min spent with patient. History of pulmonary embolism Unsure. Education given. ROR signed. on ASA. Depression with anxiety Education given. On Trazodone. Working well. Denies SI/HI. , -- Depression Education: Depression is a brain disease that makes you sad, but it is different than normal sadness. Depressed people feel down most of the time for at least 2 weeks. They also have at least one of these 2 symptoms: 1. They no longer enjoy or care about doing the things they used to like to do. 2. They feel sad, down, hopeless, or cranky most of the day, almost every day. It can also make you: lose or gain weight; sleep too much or too little; fell tired or like you have no energy; feel guilty or like you are worth nothing; forget things or feel confused; and think about or suicide. Medication and/or seeing a counselor (such as a psychiatrist, psychologist, nurse or social and political studies professor) may be necessary to treat depression. Both treatments take time to work. If you ever feel like you might hurt yourself or some else, then call your doctor or call 911 or go to the ER. Treatment Notes Test Name Order Date Thyroid Panel With TSH 2020-05-22 Comp. Metabolic Panel (14) (CMP) 2020-05-22 CBC With Differential/Platelet 2020-05-22 Next Appt Details 2 months + AMW + Labs Same Day Reason: Provider Name:Patrick Jovel, 2020-07-27 0 9:45:00 AM, [address], [place], [address], Provider Name:Patrick Med 2020-08-03 0 3:30:00 PM, [address], [place], [address], Provider Name:Patrick Jovel 2020-08-03 0 3:30:00 PM, [address], [place], [address], Insurance Providers Payer Name Payer Address Payer Insured Patient Coverage Cover age Phone Name Relationship to Start Date End Date Insured [facility] [address] [phone] DonBrisa self [facility] [address] [phone] MEDICARE Attn Part B [id number] Brisa Ochoa self 2011 [employer] Claims [address] [facility] [address]
--- NOTE | 2020-07-18 16:46 | ER ---
Nurse's Notes [facility] Name: Michelle Ochoa Age: 60 yrs Sex: Female : 1960 Arrival Date: 07/18/2020 Time: 14:32 Bed 24 Private MD: Diagnosis: Allergic contact dermatitis Presentation: 07/18 14:56 Chief complaint: Patient states: Rash with itching to entire body since Monday. No ll1 change of medications. Coronavirus screen: Client denies travel out of the [place] in the last 14 days. At this time, the client does not indicate any symptoms associated with coronavirus-19. Ebola Screen: Patient denies travel to an Ebola-affected area in the 21 days before illness onset. Initial Sepsis Screen: Does the patient meet any 2 criteria? No. Patient's initial sepsis screen is negative. Does the patient have a suspected source of infection? Yes: Skin breakdown/wound. Risk Assessment: Do you want to hurt yourself or someone else? Patient reports no desire to harm self or others. Onset of symptoms was July 15, 2020. 14:56 Method Of Arrival: Ambulatory ll1 14:56 Acuity: ZAID 4 ll1 Triage Assessment: 14:57 General: Appears uncomfortable, Behavior is calm, cooperative, appropriate for age. ll1 Pain: Denies pain. Derm: Rash noted that is itchy, red, raised, Reports rash all over with itching. Historical: - Allergies: 14:56 No Known Allergies; ll1 - PMHx: 14:56 osteoarthritis; Dementia; COPD; CVA; ESRD; Hypertension; CHF; Dialysis- T//Sat; ll1 ENDOCARDITIS; Bronchitis; Anemia; kidney failure; PATRICK; Renal Disease; - PSHx: 14:56 Triple bypass; ll1 - Immunization history:: Flu vaccine is up to date. - Social history:: Smoking status: Patient reports the use of cigarette tobacco products, smokes one-half pack cigarettes per day. Screenin:05 Abuse screen: Denies threats or abuse. Nutritional screening: No deficits noted. ll1 Tuberculosis screening: No symptoms or risk factors identified. Fall Risk None identified. Total Mcdaniel Fall Scale indicates No Risk (0-24 pts). Assessment: 17:04 General: Appears in no apparent distress. Behavior is calm, cooperative, appropriate ll1 for age. Pain: Denies pain. Derm: Rash noted that is itchy, red, raised, Reports itching, rash with itching. Vital Signs: 14:56 BP 152 / 81; Pulse 67; Resp 18; Temp 98.2; Pulse Ox 97% ; Weight 65.77 kg; Height 5 ft. ll1 0 in. (152.40 cm); Pain 0/10; 17:43 BP 158 / 72; Pulse 62; Resp 18; Pulse Ox 97% on R/A; ll1 14:56 Body Mass Index 28.32 (65.77 kg, 152.40 cm) ll1 ED Course: 14:32 Patient arrived in ED. ds1 14:55 Arm band placed on. ll1 14:57 Triage completed. ll1 16:28 Efren Wilson NP is PHCP. pm1 16:28 Matti Suh MD is Attending Physician. pm1 17:05 Patient has correct armband on for positive identification. Bed in low position. Call ll1 light in reach. Side rails up X 1. Cardiac monitoring not applicable on this patient. 17:05 No provider procedures requiring assistance completed. Patient did not have IV access ll1 during this emergency room visit. Administered Medications: 17:04 Drug: Pepcid 20 mg Route: PO; ll1 17:43 Follow up: Response: No adverse reaction; RASS: Alert and Calm (0) ll1 17:04 Drug: Benadryl 25 mg Route: PO; ll1 17:43 Follow up: Response: No adverse reaction; RASS: Alert and Calm (0) ll1 17:04 Drug: Decadron 10 mg Route: IM; Site: right gluteus; ll1 17:43 Follow up: Response: No adverse reaction; RASS: Alert and Calm (0) ll1 Outcome: 16:46 Discharge ordered by MD. pm1 17:44 Discharged to home ambulatory. ll1 17:44 Condition: stable 17:44 Discharge instructions given to patient, Instructed on discharge instructions, follow up and referral plans. medication usage, Demonstrated understanding of instructions, follow-up care, medications, Prescriptions given X 3. 17:44 Patient left the ED. ll1 Signatures: Keiko Toscano ds1 Efren Wilson NP CONSULTANT TEACHER pm1 Hue Mccullough RN RN ll1
--- NOTE | 2020-07-18 16:46 | EDPHYS ---
Physician Documentation [facility] Name: Michelle Ochoa Age: 60 yrs Sex: Female : 1960 Arrival Date: 07/18/2020 Time: 14:32 Bed 24 Private MD: ED Physician Matti Suh HPI: 07/18 16:45 This 60 yrs old Black Female presents to ER via Ambulatory with complaints of Rash. pm1 16:45 The patient's rash thought to be caused by detergent. The rash is located on the back, pm1 chest and abdomen. 16:45 The rash can be described as raised, itchy. Onset: The symptoms/episode began/occurred pm1 3 day(s) ago. Associated signs and symptoms: Pertinent positives: itching, Pertinent negatives: difficulty breathing, fever, wheezing. Severity of symptoms: in the emergency department the symptoms are unchanged. Treatment given at home: Benadryl. The patient has not experienced similar symptoms in the past. Patient's home help used a new detergent for her clothing and patient with rash to areas underneath her shirt. Historical: - Allergies: 14:56 No Known Allergies; ll1 - PMHx: 14:56 osteoarthritis; Dementia; COPD; CVA; ESRD; Hypertension; CHF; Dialysis- T/Th/Mon; ll1 ENDOCARDITIS; Bronchitis; Anemia; kidney failure; PATRICK; Renal Disease; - PSHx: 14:56 Triple bypass; ll1 - Immunization history:: Flu vaccine is up to date. - Social history:: Smoking status: Patient reports the use of cigarette tobacco products, smokes one-half pack cigarettes per day. ROS: 16:45 Constitutional: Negative for fever, chills, and weight loss, Cardiovascular: Negative pm1 for chest pain, palpitations, and edema, Respiratory: Negative for shortness of breath, cough, wheezing, and pleuritic chest pain, MS/Extremity: Negative for injury and deformity. 16:45 Neuro: Negative for headache, weakness, numbness, tingling, and seizure. 16:45 Skin: Positive for rash, of the abdomen and chest and back. Exam: 16:45 Constitutional: This is a well developed, well nourished patient who is awake, alert, pm1 and in no acute distress. Head/Face: Normocephalic, atraumatic. 16:45 Cardiovascular: Exam negative for acute changes, Rate: normal, Rhythm: regular, Pulses: no pulse deficits are appreciated. 16:45 Respiratory: Exam negative for acute changes, respiratory distress, shortness of breath. 16:45 Skin: Appearance: normal except for affected area, consistent with contact dermatitis, on the abdomen and chest and back. 16:45 Neuro: Orientation: is normal, Mentation: is normal, Motor: is normal, moves all fours. Vital Signs: 14:56 BP 152 / 81; Pulse 67; Resp 18; Temp 98.2; Pulse Ox 97% ; Weight 65.77 kg; Height 5 ft. ll1 0 in. (152.40 cm); Pain 0/10; 17:43 BP 158 / 72; Pulse 62; Resp 18; Pulse Ox 97% on R/A; ll1 14:56 Body Mass Index 28.32 (65.77 kg, 152.40 cm) ll1 MDM: 16:31 Patient medically screened. pm1 16:44 Data reviewed: vital signs. Counseling: I had a detailed discussion with the patient pm1 and/or guardian regarding: the historical points, exam findings, and any diagnostic results supporting the discharge/admit diagnosis, the need for outpatient follow up, an allergy/learning specialist, a collar band creaser, a family practitioner, to return to the emergency department if symptoms worsen or persist or if there are any questions or concerns that arise at home. Administered Medications: 17:04 Drug: Pepcid 20 mg Route: PO; ll1 17:43 Follow up: Response: No adverse reaction; RASS: Alert and Calm (0) ll1 17:04 Drug: Benadryl 25 mg Route: PO; ll1 17:43 Follow up: Response: No adverse reaction; RASS: Alert and Calm (0) ll1 17:04 Drug: Decadron 10 mg Route: IM; Site: right gluteus; ll1 17:43 Follow up: Response: No adverse reaction; RASS: Alert and Calm (0) ll1 Disposition: 17:53 Co-signature as Attending Physician, Matti Suh MD I agree with the assessment and kdr plan of care. Disposition: 07/18/20 16:46 Discharged to Home. Impression: Allergic contact dermatitis. - Condition is Stable. - Discharge Instructions: Contact Dermatitis. - Prescriptions for Benadryl 25 mg Oral Capsule - take 1 capsule by ORAL route every 6 hours As needed; 30 tablet. Pepcid 20 mg Oral Tablet - take 1 tablet by ORAL route every 12 hours for 5 days; 10 tablet. Medrol ([place]) 4 mg Oral Tablets, Dose Pack - take 1 tablet by ORAL route as directed - follow package instructions; 1 packet. - Medication Reconciliation Form, Thank You Letter, Antibiotic Education, Prescription Opioid Use form. - Follow up: Emergency Department; When: As needed; Reason: Worsening of condition. Follow up: Private Physician; When: 2 - 3 days; Reason: Recheck today's complaints, Continuance of care, Re-evaluation by your physician. - Problem is new. - Symptoms have improved. Signatures: Matti Suh MD MD kdr Efren Wilson NP WELDING FOREMAN pm1 Hue Mccullough RN RN ll1 Corrections: (The following items were deleted from the chart) 17:44 16:46 07/18/2020 16:46 Discharged to Home. Impression: Allergic contact dermatitis. ll1 Condition is Stable. Forms are Medication Reconciliation Form, Thank You Letter, Antibiotic Education, Prescription Opioid Use. Follow up: Emergency Department; When: As needed; Reason: Worsening of condition. Follow up: Private Physician; When: 2 - 3 days; Reason: Recheck today's complaints, Continuance of care, Re-evaluation by your physician. Problem is new. Symptoms have improved. pm1
[2020-07-18] MEDS ORDERED: dexAMETHasone 10 MG/ML VIAL ONE (17:13)
[2020-07-18] MEDS ORDERED: FAMOTIDINE 20 MG TAB ONE (17:13)
[2020-07-18] MEDS ORDERED: DIPHENHYDRAMINE 25 MG TAB/CAP ONE (17:13)
[2020-07-18 17:51] VITALS: TEMP 98.2; O2SAT 97
[2020-07-18 17:53] VITALS: BP 158/72
== END 2020-07-18 17:44 | disposition home or self-care (01) ==
LOC: ER 14:32
DX: L23.9 Allergic contact dermatitis, unspecified cause (principal); F17.210 Nicotine dependence, cigarettes, uncomplicated; Z95.1 Presence of aortocoronary bypass graft; I12.0 Hypertensive chronic kidney disease with stage 5 chronic kidney disease or end stage renal disease; N18.6 End stage renal disease; F03.90 Unspecified dementia, unspecified severity, without behavioral disturbance, psychotic disturbance, mood disturbance, and anxiety; Z99.2 Dependence on renal dialysis
CPT/HCPCS: 96372; 99283; J1100

== ENCOUNTER 2020-09-04 06:15 | Day surgery (SDC) | payer OTHER ==
[2020-09-02 09:46] LABS: Absolute Lymphocytes (CBC) 1.4 K/uL (0.7-4.9); Basophils % 1.1 % (0-1.3); Hematocrit 34.2 % (36.0-45.0); Lymphocytes % 20.7 % (15.3-44.8); MPV 9.1 fL (7.6-11.3); RBC Red Blood Cell Count 4.06 M/uL (3.86-4.86)
[2020-09-02 09:56] LABS: Protime INR 1.03
--- NOTE | 2020-09-02 10:09 | RAD REPORT ---
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 COMPARISON: Chest Single View dated 04/06/2020; Chest Single View dated 03/25/2020; Chest Single View dated 03/24/2020; Chest Pa And Lat (2 Views) dated 03/19/2020 FINDINGS: Mild interstitial pulmonary edema. The heart is mildly enlarged in size. Sternotomy wires present. IMPRESSION: Mild CHF.
[2020-09-02 10:11] LABS: Potassium 3.6 mmol/L (3.5-5.1)
--- NOTE | 2020-09-02 22:26 | EKG ---
Test Date: 2020-09-02 Test Time: 08:59:52 Shroud Line Tier: TR MEASUREMENT RESULTS: Intervals: Rate: 65 SD: 154 QRSD: 76 QT: 454 QTc: 472 [place]: P: 92 SD: 154 QRS: 17 T: 166 INTERPRETIVE STATEMENTS: Normal sinus rhythm Cannot rule out Anterior infarct, age undetermined ST & T wave abnormality, consider lateral ischemia Abnormal ECG Compared to ECG 04/06/2020 17:30:38 ST (T wave) deviation now present Atrial premature complex(es) no longer present T-wave abnormality no longer present Myocardial infarct finding still present Possible ischemia still present Electronically Signed On 09-02-20 22:25:25 DRY CHAIN WORKER by Bam Terry
[2020-09-04] MEDS ORDERED: NA CHLORIDE 0.9% 500 ML ONE (06:40)
[2020-09-04] MEDS ORDERED: ATROPINE SULF 1 MG/10 ML SYR IV ONE (06:50)
[2020-09-04] MEDS ORDERED: HEPARIN 5000 UNIT/ML 1 ML VIAL ONE (06:50)
[2020-09-04] MEDS ORDERED: FENTANYL CITR 100 MCG/2 ML ONE (06:50)
[2020-09-04] MEDS ORDERED: VERAPAMIL HCL 10 MG/4 ML VIAL IV ONE (06:50)
[2020-09-04] MEDS ORDERED: MIDAZOLAM HCL 2 MG/2 ML INJ ONE (06:50)
[2020-09-04] MEDS ORDERED: LIDOCAINE 1% 20 ML MDV ONE (06:54)
[2020-09-04] MEDS ORDERED: HEPA 1000U/500MLS 0 UNIT/0 ML BAG IV ONE (06:54)
[2020-09-04 07:10] VITALS: TEMP 96.9
[2020-09-04] MEDS ORDERED: NA CHLORIDE 0.9% 0 ML IV ONE (07:29)
[2020-09-04] MEDS ORDERED: HEPA 1000U/500MLS 2,000 UNIT/1,000 ML BAG IV ONE (08:01)
[2020-09-04 08:32] VITALS: O2SAT 95
[2020-09-04 09:30] VITALS: BP 151/72
[2020-09-04 09:56] LABS: Arterial Blood Carboxyhemoglob 2.3 % (0-1.5); Blood Gas Oxyhemoglobin 63.3 % (94-97); Blood O2 Saturation 65.5 % (92-98.5)
--- NOTE | 2020-09-04 10:43 | OP ---
Date of Procedure: 09/04/2020 Surgeon: SHADI GARZA Procedure Performed: 1.Selective coronary angiogram. 2.Right heart catheterization. Indication: 1.Severe pulmonary hypertension by echo. 2.Chest pain. Access: 1.Right radial artery 6-Marshallese closed with TR band. 2.Right IJ 7-Marshallese closed with manual pressure. Complications: None. Bleeding: Less than 5 mL. Description Of Procedure: After risks, benefits, and alternatives were explained, the patient agreed to the procedure and signed informed consent. The patient was brought into the cardiac catheterizat ion laboratory, prepped and draped in usual sterile fashion. Then, we accessed the right IJ using ul trasound guidance and micropuncture kit and placed a 7-Marshallese sheath and then accessed right radial a rtery using pediatric micropuncture kit and placed a 6-Marshallese slender sheath. Then I took a 5-Marshallese Buxton catheter into the aortic root over a J-wire and engaged left main coronary artery and then rig ht coronary artery, took standard views. Subsequently, took a 7-Marshallese balloon tip [place]-Kyle cathete r through the right IJ into the right atrium with pressure was recorded and then to the RV with pressure were recorded and then pressure recorded and then saturation to c alculate cardiac output. [place] catheter was removed, then removed both sheaths and manual pressure wa s applied on the IJ site with good hemostasis and TR band was placed on the radial side with good hem ostasis. Findings: Coronary angiogram: 1.Left main is normal. 2.LAD is normal with tortuous vessel. 3.Left circumflex normal, tortuous. 4.RCA dominant and normal. No significant coronary artery disease. Right Heart Catheterization Findings: The RA pressure was 12. RV pressure was 63/5 with a mean of 14. PA pressure was 63/23 with a mean o f 39. Pulmonary wedge pressure was 17 mmHg. PA sat and cardiac output are pending. Impression: 1.Normal coronary arteries. 2.Severe pulmonary hypertension likely venous in nature and due to diastolic heart failure. Plan: Fluid management to dialysis and follow up with me post discharge in 4 weeks. SR/MODL Voice ID: [id number] Report ID: [id number]
== END 2020-09-04 09:45 | disposition home or self-care (01) ==
LOC: CCL 06:15
PROVIDERS: ATTEND Internal Medicine
DX: I13.2 Hypertensive heart and chronic kidney disease with heart failure and with stage 5 chronic kidney disease, or end stage renal disease (principal); I27.20 Pulmonary hypertension, unspecified; I50.30 Unspecified diastolic (congestive) heart failure; N18.6 End stage renal disease; I77.1 Stricture of artery; F17.210 Nicotine dependence, cigarettes, uncomplicated; Z01.810 Encounter for preprocedural cardiovascular examination; Z20.822 Contact with and (suspected) exposure to COVID-19; Z82.49 Family history of ischemic heart disease and other diseases of the circulatory system
CPT/HCPCS: 93005; 85025; 80048; 36415; 85610; 85730; 71046; 93456; 82805; U0003; C1893; J1644 ×2; J3010; J7040; J2250